=== PATIENT | male | born 1960 | race Caucasian/White ===

== ENCOUNTER 2022-04-21 20:06 | Emergency (ER) | payer MEDICAID, SELFPAY ==
--- NOTE | ~2022-04-21 | XR_ITS ---
EXAMINATION: XR CHEST CLINICAL INFORMATION: Shortness of breath. COMPARISON: Chest x-ray 03/02/2019 TECHNIQUE: Frontal portable view of the chest was obtained. 9:18 PM FINDINGS: Marked emphysematous hyperinflation of lungs. No acute airspace disease. No pleural effusion or pneumothorax. Heart size is normal. Cardiac mediastinal contours are normal. No pulmonary vascular congestion. XR/XR chest 1V IMPRESSION: Marked emphysematous hyperinflation of lungs. No acute abnormality of the chest.
[2022-04-21 20:16] VITALS: BP 141/72; BP 144/77; PULSE 80; PULSE 83; RESP 22; TEMP 36.6; O2SAT 100; O2SAT 98; BMI 24.0
[2022-04-21] MEDS: methylPREDNISolone Sod Succ 125 MG/2 ML VIAL IVPUSH (21:31)
[2022-04-21 21:33] VITALS: PULSE 72; RESP 18; O2SAT 97
[2022-04-21 21:36] LABS: MANUAL DIFF FLAG NO
[2022-04-21 21:39] LABS: Basophils Percent Auto 0.3 % (0-2); Eosinophils Percent Auto 0.5 % (0-4); Hematocrit 34.8 % (42.0-52.0); Hemoglobin 11.9 g/dl (14.0-18.0); Imm Gran Abs Auto 0.01 X10*3/uL (0.00-0.03); Imm Gran Pct Auto 0.2 % (0.0-0.4); Lymphocytes Absolute Auto 1.5 X10*3/uL (1.2-4.9); Lymphocytes Percent Auto 22.3 % (20-40); Mean Corpuscular HGB Conc 34.2 g/dl (31.0-36.0); Mean Corpuscular Hemoglobin 31.5 pg (27.0-33.0); Mean Corpuscular Volume 92.1 fL (80.0-98.0); Mean Platelet Volume 8.5 fL (9.4-12.4); Monocytes Absolute Auto 0.3 X10*3/uL (0.1-1.2); Monocytes Percent Auto 4.2 % (2-11); Neutrophils Absolute Auto 4.7 x10*3/uL (2.0-8.3); Neutrophils Percent Auto 72.5 % (45-73); Platelet Count 294 X10*3/uL (160-400); Red Blood Count 3.78 X10*6/uL (4.60-5.80); Red Cell Distribution Width 13.5 % (11.0-16.0); White Blood Count 6.5 X10*3/uL (4.8-10.8)
[2022-04-21 21:41] LABS: COVID-19 Test Negative (Negative); IDNOW Serial# 16C4AD1C; IDNOW Serial# BCCEAD1C; Influenza A Negative (Negative); Influenza B2 Negative (Negative)
[2022-04-21 21:45] LABS: VBG HCO3 25 mmol/L (22-26); VBG pCO2 38 mmHg; VBG pH 7.42 (7.32-7.43); VBG pO2 53 mmHg
[2022-04-21 21:47] LABS: Venous Blood Gas Refer to POC result
--- NOTE | 2022-04-21 21:53 | ED_ITS ---
HPI - SOB/Dyspnea General Chief Complaint: Dyspnea Stated Complaint: SOB x 3 days, cough per EMS Time Seen by Provider: 04/21/22 20:51 Source: patient Mode of arrival: EMS History of Present Illness HPI Narrative: 62-year-old male with history of everyday cigarette smoking, COPD and states that he has had decreased appetite, body aches, increased shortness of breath over the past 3 days without fever but has had chills. As per the EMS report patient was oxygenating 80s on room air and was given a DuoNeb and 100 mg of Solu-Medrol. Related Data Previous Rx's Medication Instructions Recorded albuterol sulfate 90 mcg/actuation 2 puff inhalation Q4-6H PRN 04/21/22 aerosol inhaler (Ventolin HFA) shortness of breath or wheezing #8.5 grams prednisone 50 mg tablet 50 mg PO DAILY 4 days #4 tabs 04/21/22 Allergies Allergy/AdvReac Type Severity Reaction Status Date / Time lisinopril [LISINOPRIL] Allergy Intermediate UNKNOWN Unverified 01/01/20 14:46 Penicillins [PENICILLINS] Allergy Unknown UNKNOWN Unverified 01/01/20 14:46 UNK ABX Allergy Unknown Uncoded 01/01/20 14:46 UNK BP MED Allergy Unknown Uncoded 01/01/20 14:46 Review of Systems Review of Systems: Pertinent positives and negatives as stated in HPI. PMFSH Past Medical History Source: nursing notes reviewed Social History Social History Alcohol intake: former Smoked in Last 30 Days: Yes Use of substances other than those prescribed or required for medical reasons: No Advance Directives: No Advance Directives Information Provided: Yes Physical Exam Vital Signs: Vital Signs: Last Vital Signs Temp 97.8 F 04/21/22 20:16 Pulse 85 04/21/22 22:00 Resp 20 04/21/22 22:00 BP 104/59 L 04/21/22 22:00 Pulse Ox 98 04/21/22 23:00 O2 Del Method 04/21/22 23:00 BMI result Body Mass Index 24.0 VITAL SIGNS: Reviewed. GENERAL: Well developed, well nourished, in no acute distress. HEAD: Normocephalic/atraumatic EYES: PERRLA, EOMI EARS: Ext canals without abnormality OROPHARYNX: no oral lesions noted, posterior pharynx clear LUNGS: Decreased breath sounds bilaterally with minor expiratory wheeze but no rhonchi or crackles. SpO2<100> CARDIOVASCULAR: Regular rate and rhythm without noted murmurs ABDOMEN: Soft, non-tender, non-distended with bowel sounds. MUSCULOSKELETAL: No tenderness, deformities, or effusions noted on gross inspection. EXTREMITIES: No cyanosis, clubbing or edema. SKIN: Inspection of the skin reveals no rashes NEUROLOGIC: Alert and oriented x 4. Strength and sensation to light touch were grossly intact x 4. Medications Administered Discontinued Medications Generic Name Dose Route Start Last Admin Trade Name Freq PRN Reason Stop Dose Admin Albuterol Sulfate 10 mg/ 0 mg 04/21/22 21:12 04/21/22 21:29 Ipratropium Arminto 0.5 mg INHALE 04/21/22 21:13 1 each ONCE ONE Administration Methylprednisolone Sodium Succinate 125 mg 04/21/22 21:12 04/21/22 21:31 Methylprednisolone Sod Succ 125 Mg/2 Ml Vial IVPUSH 04/21/22 21:13 125 mg ONCE ONE Administration Medical Decision Making Medical Decision Making [facility] Narrative: 62-year-old male with shortness of breath and a history of cigarette smoking. 2325: I have reviewed and interpreted patient's workup as being mild COPD e xacerbation with good oxygenation on room air and on ambulation test maintained 98% O2 sats without tachycardia or significant tachypnea. There is no overt evidence of bacterial infection, pneumonia, anemia is chronically stable and no evidence JUAN or electrolyte derangements, viral testing is negative. He is otherwise discharged home on a course steroids and instructions to follow-up with his primary care provider on Sunday morning. Differential Diagnosis Differential Diagnoses: The differential diagnosis associated with the prese ntation includes Viral illness, chronic lung disease Lab Data [facility] Lab Attestation statement: I reviewed the patient's lab results. Please see above for discussion 04/21/22 21:29 04/21/22 21:29 Labs: Lab Results 04/21/22 04/21/22 04/21/22 Range/Units 20:59 20:59 21:29 WBC 6.5 (4.8-10.8) X10*3/uL RBC 3.78 L (4.60-5.80) X10*6/uL Hgb 11.9 L (14.0-18.0) g/dl Hct 34.8 L (42.0-52.0) % MCV 92.1 (80.0-98.0) fL MCH 31.5 (27.0-33.0) pg MCHC 34.2 (31.0-36.0) g/dl RDW 13.5 (11.0-16.0) % Plt Count 294 (160-400) X10*3/uL MPV 8.5 L (9.4-12.4) fL Immature Gran % (Auto) 0.2 (0.0-0.4) % Neut % (Auto) 72.5 (45-73) % Lymph % (Auto) 22.3 (20-40) % [place] % (Auto) 4.2 (2-11) % Eos % (Auto) 0.5 (0-4) % Baso % (Auto) 0.3 (0-2) % Lymph # (Auto) 1.5 (1.2-4.9) X10*3/uL [place] # (Auto) 0.3 (0.1-1.2) X10*3/uL Eos # (Auto) 0.0 (0.0-0.4) X10*3/uL Baso # (Auto) 0.0 (0.0-0.2) X10*3/uL Abs Immat Gran (auto) 0.01 (0.00-0.03) X10*3/uL Absolute Neuts (auto) 4.7 (2.0-8.3) x10*3/uL Absolute Nucleated RBC 0.000 (0.0-0.012) X10*3/uL Nucleated RBC % (auto) 0.0 (0.0-0.2) /100WBC VBG pH (7.32-7.43) VBG pCO2 mmHg VBG pO2 mmHg VBG HCO3 (22-26) mmol/L VBG O2 Saturation % VBG Base Excess mmol/L Sodium (135-145) mmol/L Potassium (3.3-5.1) mmol/L Chloride (96-108) mmol/L Carbon Dioxide (22-29) mmol/L Anion Gap (12-20) BUN (9-16) mg/dL Creatinine (0.5-1.4) mg/dL Estim Creat Clear Calc Estimated GFR Random Glucose (60-115) mg/dL Calcium (8.4-10.2) mg/dL Total Bilirubin (0.0-1.0) mg/dL AST (5-37) U/L ALT (0-40) U/L Alkaline Phosphatase (39-117) U/L Total Protein (6.5-8.0) g/dL Albumin (3.5-5.0) g/dL COVID-19 (KISHA) Negative (Negative) COVID-19 Clin Com See Note Influenza Type A (MIKEY) Negative (Negative) Influenza Type B (MIKEY) Negative (Negative) Influenza A & B Note See Note 04/21/22 04/21/22 Range/Units 21:29 21:39 WBC (4.8-10.8) X10*3/uL RBC (4.60-5.80) X10*6/uL Hgb (14.0-18.0) g/dl Hct (42.0-52.0) % MCV (80.0-98.0) fL MCH (27.0-33.0) pg MCHC (31.0-36.0) g/dl RDW (11.0-16.0) % Plt Count (160-400) X10*3/uL MPV (9.4-12.4) fL Immature Gran % (Auto) (0.0-0.4) % Neut % (Auto) (45-73) % Lymph % (Auto) (20-40) % [place] % (Auto) (2-11) % Eos % (Auto) (0-4) % Baso % (Auto) (0-2) % Lymph # (Auto) (1.2-4.9) X10*3/uL [place] # (Auto) (0.1-1.2) X10*3/uL Eos # (Auto) (0.0-0.4) X10*3/uL Baso # (Auto) (0.0-0.2) X10*3/uL Abs Immat Gran (auto) (0.00-0.03) X10*3/uL Absolute Neuts (auto) (2.0-8.3) x10*3/uL Absolute Nucleated RBC (0.0-0.012) X10*3/uL Nucleated RBC % (auto) (0.0-0.2) /100WBC VBG pH 7.42 (7.32-7.43) VBG pCO2 38 mmHg VBG pO2 53 mmHg VBG HCO3 25 (22-26) mmol/L VBG O2 Saturation 83.0 % VBG Base Excess 1.0 mmol/L Sodium 137 (135-145) mmol/L Potassium 4.0 (3.3-5.1) mmol/L Chloride 105 (96-108) mmol/L Carbon Dioxide 21 L (22-29) mmol/L Anion Gap 15 (12-20) BUN 17 H (9-16) mg/dL Creatinine 1.08 (0.5-1.4) mg/dL Estim Creat Clear Calc 58.6 Estimated GFR > 60 Random Glucose 110 (60-115) mg/dL Calcium 8.7 (8.4-10.2) mg/dL Total Bilirubin 0.2 (0.0-1.0) mg/dL AST 15 (5-37) U/L ALT 10 (0-40) U/L Alkaline Phosphatase 59 (39-117) U/L Total Protein 6.4 L (6.5-8.0) g/dL Albumin 3.9 (3.5-5.0) g/dL COVID-19 (KISHA) (Negative) COVID-19 Clin Com Influenza Type A (MIKEY) (Negative) Influenza Type B (MIKEY) (Negative) Influenza A & B Note Independent Interpretation I performed an independent interpretation of an: EKG Interpretation: Normal sinus rhythm, HR-77, no STEMI, IL/QRS/QTC is within normal limits. Radiology Impression Radiologist Impression: My interpretation is in agreement with radiology's impression of the imaging study. External Record Review External record reviewed: Outpatient record and Prior outpatient labs Critical Care Time Critical Care Time Critical Care Time: Yes Total Critical Care Time: 30 Attestation: I personally attest to this time spent taking care of the patient. Discharge Plan Discharge Clinical Impression: COPD exacerbation Patient Disposition: Home, Self-Care Instructions: COPD (Chronic Obstructive Pulmonary Disease) (ED) Additional Instructions: 1. Resume all home medications as prescribed. 2. Complete the entire steroid course that you have been started on. 3. Follow-up with your primary care provider on Sourav morning. Return to the ER for any worsening symptoms. Prescriptions: New prednisone 50 mg tablet 50 mg PO DAILY 4 Days Qty: 4 0RF albuterol sulfate [Ventolin HFA] 90 mcg/actuation HFA aerosol inhaler 2 puff inhalation Q4-6H PRN (Reason: shortness of breath or wheezing) Qty: 8.5 0RF Referrals: Mike Kruse MD [Primary Care Provider] -
--- NOTE | 2022-04-21 21:57 | ECG_ITS ---
Test Reason : SOB Blood Pressure : / mmHG Vent. Rate : 077 BPM Atrial Rate : 077 BPM P-R Int : 164 ms QRS Dur : 078 ms QT Int : 376 ms P-R-T Axes : 082 072 055 degrees QTc Int : 425 ms Normal sinus rhythm Septal infarct (cited on or before 21-APR-2022) Abnormal ECG When compared with ECG of 20-FEB-2019 18:47, No significant changes seen Referred By: Noelle Martin Electronically Signed By:ROSIE LIVE
[2022-04-21 22:00] VITALS: BP 104/59; PULSE 85; RESP 20; O2SAT 97
[2022-04-21 22:00] LABS: Alanine Aminotransferase 10 U/L (0-40); Albumin Level 3.9 g/dL (3.5-5.0); Alkaline Phosphatase 59 U/L (39-117); Anion Gap 15 (12-20); Aspartate Amino Transferase 15 U/L (5-37); Bilirubin Total 0.2 mg/dL (0.0-1.0); Blood Urea Nitrogen 17 mg/dL (9-16); Calcium 8.7 mg/dL (8.4-10.2); Carbon Dioxide 21 mmol/L (22-29); Chloride 105 mmol/L (96-108); Creatinine Clr Calc Pharmacy 58.6; Estimated Glomerular Filt Rate > 60; Glucose Random 110 mg/dL (60-115); Sodium 137 mmol/L (135-145); Total Protein 6.4 g/dL (6.5-8.0)
--- NOTE | 2022-04-21 22:10 | PC.NURSE ---
PT A&Ox4, reports increase exerting SOB with cough. Denies any pain. O2 sat 95% on RA, RR 22. LS diminished. Blood work drawn and sent to lab.
[2022-04-21 23:00] VITALS: O2SAT 98
[2022-04-21 23:26] VITALS: BP 101/54; PULSE 92; RESP 16; TEMP 36.4; O2SAT 96
== END 2022-04-22 00:37 | disposition home or self-care (01) ==
PROVIDERS: Emergency Provider Student in an Organized Health Care Education/Training Program; PCP Internal Medicine
DX: J44.1 Chronic obstructive pulmonary disease with (acute) exacerbation (principal); R06.02 Shortness of breath; R05.9 Cough, unspecified; M79.10 Myalgia, unspecified site; Z20.822 Contact with and (suspected) exposure to COVID-19; Z79.899 Other long term (current) drug therapy
CPT/HCPCS: 36415; 71045; 80053; 82803; 85025; 87502; 87635; 93005; 94640; 96374; 99284; 99285; J2930

== ENCOUNTER 2022-09-19 20:27 | Observation (INO) | payer MEDICAID, SELFPAY ==
--- NOTE | ~2022-09-19 | XR_ITS ---
EXAMINATION: XR CHEST CLINICAL INFORMATION: Short of breath COMPARISON: 04/21/2022 TECHNIQUE: Frontal view of the chest was obtained. FINDINGS: Hyperexpanded lungs. Oligemia of the upper lungs consistent with emphysema. No consolidation. No pleural effusion or pneumothorax. The cardiomediastinal silhouette is within normal limits. XR/XR chest 1V IMPRESSION: No acute pulmonary disease. Emphysema.
[2022-09-19 20:31] VITALS: BP 160/80; BP 188/82; PULSE 107; PULSE 96; RESP 28; TEMP 36.4; O2SAT 100; O2SAT 99; BMI 24.0
--- NOTE | 2022-09-19 20:33 | ECG_ITS ---
Test Reason : SOB Blood Pressure : / mmHG Vent. Rate : 103 BPM Atrial Rate : 103 BPM P-R Int : 116 ms QRS Dur : 074 ms QT Int : 320 ms P-R-T Axes : 074 058 066 degrees QTc Int : 419 ms Sinus tachycardia Septal infarct (cited on or before 21-APR-2022) Abnormal ECG When compared with ECG of 21-APR-2022 22:18, No significant change was found Referred By: Generic ED Physician Electronically Signed By:David Hurst
[2022-09-19 20:36] VITALS: RESP 26
--- NOTE | 2022-09-19 20:46 | MHC.EDTECH ---
This Tech assumed care of this PT upon arrival. Pt changed over to hospital gown and placed on media monitor. EKG completed and handed to provider. Bloodwork sent to Lab for processing
[2022-09-19 20:48] VITALS: BP 165/76; PULSE 120; RESP 26; TEMP 36.6; O2SAT 91
[2022-09-19 20:48] LABS: MANUAL DIFF FLAG NO
[2022-09-19 20:49] LABS: Basophils Percent Auto 0.1 % (0-2); Hematocrit 38.5 % (42.0-52.0); Hemoglobin 13.4 g/dl (14.0-18.0); Imm Gran Abs Auto 0.18 X10*3/uL (0.00-0.03); Imm Gran Pct Auto 0.8 % (0.0-0.4); Lymphocytes Absolute Auto 1.2 X10*3/uL (1.2-4.9); Lymphocytes Percent Auto 5.7 % (20-40); Mean Corpuscular HGB Conc 34.8 g/dl (31.0-36.0); Mean Corpuscular Hemoglobin 31.8 pg (27.0-33.0); Mean Corpuscular Volume 91.4 fL (80.0-98.0); Mean Platelet Volume 8.4 fL (9.4-12.4); Monocytes Absolute Auto 1.2 X10*3/uL (0.1-1.2); Monocytes Percent Auto 5.4 % (2-11); Neutrophils Absolute Auto 19.2 x10*3/uL (2.0-8.3); Platelet Count 255 X10*3/uL (160-400); Red Blood Count 4.21 X10*6/uL (4.60-5.80); Red Cell Distribution Width 13.9 % (11.0-16.0); White Blood Count 21.8 X10*3/uL (4.8-10.8)
--- OUTSIDE RECORDS SUMMARY | 2022-09-19 20:52 | XMS_ITS | Continuity of Care Document ---
Author Name Unknown Organization [facility] Address [address] [place] [address]- Care Team Providers Care Night Cleaner Name Role Phone Mike Tristan MD Primary Care Physician Encounter [facility] Date(s): 01/03/21 - 02/02/21 [facility] [address] [place] [address] [address] [place], [place] [id number] Attending Physician: Admtr, Eliza Admitting Physician: Admtr, Eliza Referring Physician: Admtr, Ar8 Allergies, Adverse Reactions, Alerts Substance Reaction Severity Status lisinopril Atenolol Trisha norvegensis Active cloNIDine Active Immunizations Given and Recorded Vaccine Date Status Refusal Reason SARS-CoV-2 (COVID-19) Ad26 vaccine 09/14/20 Given influenza virus vaccine, inactivated 01/08/20 Give n influenza virus vaccine, inactivated 1, 2 11/21/16 Recorded influenza virus vaccine, inactivated 11/20/16 Mohan rded influenza virus vaccine, inactivated 3 01/26/16 Re corded influenza virus vaccine, inactivated 02/04/15 Mohan rded influenza virus vaccine, inactivated 12/09/13 Mohan rded influenza virus vaccine, inactivated 11/28/10 Mohan rded tetanus-diphtheria toxoids (Td) 02/10/19 Given tetanus-diphtheria toxoids (Td) 02/10/19 Given zoster vaccine, inactivated 11/16/18 Recorded pneumococcal 23-valent vaccine 01/20/16 Given pneumococcal 23-valent vaccine 12/29/08 Recorded pneumococcal 13-valent vaccine 05/11/14 Given tetanus/diphtheria/pertussis, acel(Tdap) 04/01/09 Recorded 1Location History: [facility] 2Result Comment: [11/22/2016] [facility] 3Result Comment: [03/20/2016] [facility] Medications amLODIPine 5 mg oral tablet 5 mg, 1, tablet, By Mouth, Daily, # 90 tablet, Refills 0, Tot. Refills 0, Soft Stop, 01/10/21 16:35:00 EDT, Route to Pharmacy Electronically, [facility], 174, cm, 12/30/20 14:45:00 EDT, Height, 57, kg, 03/19/19 14:07:00 EST, Dry Weight Start Date: 01/10/21 Status: Ordered Aspirin Low Dose 81 mg oral delayed release tablet 1 tablet, By Mouth, Daily, # 30 tablet, 2 Refills, [facility], 174, cm, 01/14/21 15:08:00EDT, Height, 57, kg, 03/19/19 14:07:00 EST, Dry Weight Start Date: 01/25/21 Status: Ordered Combivent Respimat 20 mcg-100 mcg/inh inhalation aerosol 1 puffs, Inhalation, 4 times a day, PRN NEEDED FOR WHEEZING OR SHORTNESS OF BREATH, # 4 Gm, 11 Refills, Maintenance, 05/07/20 10:33:00 EST, [facility], 30, 1 puffs Inhalation 4 times a day,PRN: NEEDED FOR WHEEZING OR SHORTNESS OF BREATH... Start Date: 05/07/20 Status: Ordered docusate sodium 100 mg oral capsule 1 capsule = 100 mg, By Mouth, 2 times a day, PRN as needed for constipation, # 100 capsule, 2 Refills, Maintenance, 08/17/20 14:09:00 EDT, Capsule, [facility], Partial fill upon patient request if the prescription is for a schedule II opioid... Start Date: 08/17/20 Status: Ordered ENSURE CHOCOLATE ENSURE CHOCOLATE, See Instructions, # 60 each, Refills 11, Tot. Refills 11, Maintenance, drink 2 ensure daily dx code: r63.0 R63.4 , 07/12/20 15:07:00 EDT, Compound, 174, cm, 07/12/20 14:32:00 EDT, Height, 57, kg, 03/19/19 14:07:00 E... Start Date: 07/12/20 Status: Ordered Fish Oil By Mouth, 0 Refills, Maintenance, 08/17/20 13:53:00 EDT, Partial fill upon patient request if the prescription is for a schedule II opioid drug. Start Date: 08/17/20 Status: Ordered fluticasone 50 mcg/inh nasal spray See Instructions, INSTILL 1 SPRAY INTO EACH NOSTRIL TWICE DAILY, # 16 Gm, 2 Refills, 08/24/20 15:55:00 EDT, [facility], 30, INSTILL 1 SPRAY INTO EACH NOSTRIL TWICE DAILY, 174, cm, 08/17/20 13:45:00 EDT, Height, 57, kg, 03/19/19 14:07:00 EST,... Start Date: 08/24/20 Status: Ordered hydrocortisone 1% topical cream 1 application, Topically, 2 times a day, apply in a thin film to the affected skin and rub in gently and completely, # 30 Gm, 0 Refills, Maintenance, 10/15/17 14:37:33 EDT, Cream, 1 application Topically 2 times a day,Instr:apply in a thin film to the... Start Date: 10/15/17 Status: Ordered loratadine 10 mg oral capsule 1 capsule = 10 mg, By Mouth, Daily, # 40 capsule, 1 Refills, Maintenance, 11/30/20 11:11:00 EDT, Capsule, [facility], Partial fill upon patient request if the prescription is for a scheduleII opioid drug., 174, cm, 11/30/20 10:34:00 EDT, He... Start Date: 11/30/20 Status: Ordered losartan 100 mg oral tablet 1 tablet, By Mouth, Daily, # 30 tablet, 11 Refills, Maintenance, 07/12/20 14:44:00 [facility], cm, 07/12/20 14:32:00 EDT, Height, 57, kg, 03/19/19 14:07:00 EST, Dry Weight Start Date: 07/12/20 Status: Ordered metoprolol 50 mg oral tablet, extended release 50 mg, 1, tablet, By Mouth, Daily, do not crush or chew, # 30 tablet, Refills 11, Tot. Refills 11, Maintenance, 07/12/20 14:44:00 EDT, Route to Pharmacy Electronically, [facility], 174, cm,07/12/20 14:32:00 EDT, Height, 57, kg, 03/19/19 14:... Start Date: 07/12/20 Status: Ordered montelukast 10 mg oral tablet 1, tablet, By Mouth, Daily at bedtime, # 30 tablet, Refills 4, Tot. Refills 0, Maintenance, 10/20/20 11:07:00 EDT, Route to Pharmacy Electronically, [facility], 174, cm, 09/14/20 14:37:00 EDT, Height, 57, kg, 03/19/19 14:07:00 EST, Dry Weight Start Date: 10/20/20 Status: Ordered Nasacort Allergy 24HR 55 mcg/inh nasal spray 2 sprays, Nares, Both, Daily, # 3 each, 0 Refills, Maintenance, 01/08/20 14:50:00 EDT, [facility], 2 sprays Nares, Both Daily, 174, cm, 01/08/20 14:29:00 EDT, Height, 57, kg, 03/19/19 14:07:00 EST, Dry Weight Start Date: 01/08/20 Status: Ordered nicotine 4 mg oral transmucosal lozenge 1 lozenge = 4 mg, By Mouth, Every hour, # 189 lozenge, 11 Refills, Maintenance, 07/12/20 14:49:00 EDT, [facility], 1 lozenge By Mouth Every hour, 174, cm, 07/12/20 14:32:00 EDT, Height, 57,kg, 03/19/19 14:07:00 EST, Dry Weight Start Date: 07/12/20 Status: Ordered omeprazole 20 mg oral enteric coated capsule 1 capsule, By Mouth, Daily, # 14 capsule, 0 Refills, Maintenance, 07/05/20 8:06:00 EDT, [facility], 174, cm, 06/22/20 14:37:00 EST, Height, 57, kg, 03/19/19 14:07:00 EST, Dry Weight Start Date: 07/05/20 Stop Date: 07/19/20 Status: Ordered pravastatin 40 mg oral tablet 1 tablet = 40 mg, By Mouth, Daily, # 90 tablet, 1 Refills, Maintenance, 08/24/20 15:56:00 EDT, Tablet, [facility], 174, cm, 08/17/20 13:45:00 EDT, Height, 57, kg, 03/19/19 14:07:00 EST, DryWeight Start Date: 08/24/20 Status: Ordered Remeron 15 mg oral tablet 1 tablet = 15 mg, By Mouth, Daily at bedtime, REPLACES ZOLOFT, # 30 tablet, 1 Refills, Maintenance,06/22/20 15:13:00 EST, Tablet, [facility], Partial fill upon patient request if the prescription is for a schedule II opioid drug., 174, cm,... Start Date: 06/22/20 Status: Ordered Spiriva Respimat 1.25 mcg/inh inhalation aerosol 2 puffs, Inhalation, Daily, # 4 Gm, 11 Refills, Maintenance, 05/25/20 13:51:00 EST, Aerosol, [facility], Partial fill upon patient request if the prescription is for a schedule II opioid drug., 174, cm, 05/07/20 10:13:00 EST, Height, 57, kg,... Start Date: 05/25/20 Status: Ordered Symbicort 160mcg/4.5mcg Inhaler 2, puffs, Inhalation, 2 times a day, # 1 each, Refills 11, Tot. Refills 11, Maintenance, 05/25/20 13:51:00 EST, Aerosol, Route to Pharmacy Electronically, [id number], [facility], 174,cm, 05/07/20 10:13:00 EST, Height, 57, kg, 03/19/19... Start Date: 05/25/20 Status: Ordered tamsulosin 0.4 mg oral capsule 1, capsule, By Mouth, Daily, # 30 capsule, Refills 4, Tot. Refills 0, Maintenance, 10/20/20 11:06:00 EDT, Route to Pharmacy Electronically, [facility], 174, cm, 09/14/20 14:37:00 EDT, Height, 57, kg, 03/19/19 14:07:00 EST, Dry Weight Start Date: 10/20/20 Status: Ordered traZODone 50 mg oral tablet 100 mg, 2, tablet, By Mouth, Daily at bedtime, # 60 tablet, Refills 11, Tot. Refills 11, Maintenance, 07/12/20 14:43:00 EDT, Route to Pharmacy Electronically, [facility], 174, cm, 07/12/20 14:32:00 EDT, Height, 57, kg, 03/19/19 14:07:00 EST,... Start Date: 07/12/20 Status: Ordered Tylenol Extra Strength 500 mg oral tablet See Instructions, PRN for pain, 1 or 2 tablet By Mouth 3 times a day PER DR TRISTAN, # 100 tablet, 11 Refills, Maintenance, 06/08/20 10:22:00 EST, Tablet, [facility], 174, cm, 06/08/20 9:48:00 EST, Height, 57, kg, 03/19/19 14:07:00 EST, Dry Weight Start Date: 06/08/20 Status: Ordered Problem List Condition Effective Dates Status Health Status Inform ant Allergic rhinitis due to pollen(Confirmed) Active Anemia(Confirmed) Active Anxiety(Confirmed) Active Arthralgia of pelvis or thigh(Confirmed) Active Benign prostatic hyperplasia(Confirmed) Active Cerebrovascular disease(Confirmed) Active Constipation(Confirmed) Active Positive fecal immunochemica l test(Confirmed) Active Gastroesophageal reflux(Confirmed) Active Hypercholesterolemia(Confirmed) Active HTN (hypertension)(Confirmed) Active ED (erectile dysfunction)(Confirmed) Active Insomnia(Confirmed) Active Internal hemorrhoids(Confirmed) 1 Active Livedo reticularis(Confirmed) Active Low backache(Confirmed) Active COPD, moderate(Confirmed) 2 Active Pulmonary nodules(Confirmed) 3 Active Frequent urination at night(Confirmed) Active PVD (peripheral vascular disease)(Confirmed) Active Polyp of colon(Confirmed) 4 Active Emphysema of lung(Confirmed) 5 Active Chronic pain in shoulder(Confirmed) Active Tachycardia(Confirmed) Active Tobacco abuse(Confirmed) Active Tubular adenoma of colon(Confirmed) 09/03/16 Active Vertigo(Confirmed) Active 1colo 2016 2Dr. Green 3IMPRESSION: 1. Severe emphysema. No evidence of chronic interstitial lung disease. 2. Several pulmonary nodules bilaterally measuring up to 6 mm. In this patient with high risk for malignancy due to smoking, follow-up CT at 3 months, then CT at 18-24 months and if unchanged no further followup per Guidelines for Management of Incidental Pulmonary Nodules Detected on CT Images: From the Fleischner Society 2017. 4colo 2017 5IMPRESSION: 1. Severe emphysema. No evidence of chronic interstitial lung disease. 2. Several pulmonary nodules bilaterally measuring up to 6 mm. In this patient with high risk for malignancy due to smoking, follow-up CT at 3 months, then CT at 18-24 months and if unchanged no further followup per Guidelines for Management of Incidental Pulmonary Nodules Detected on CT Images: From the Fleischner Society 2017. Social History Social History Type Response Smoking Status 5-9 cigarettes (betw een 1/4 to 1/2 pack)/day in last 30 days entered on: 05/26/19 Sex
--- OUTSIDE RECORDS SUMMARY | 2022-09-19 20:52 | XMS_ITS | Continuity of Care Document ---
Author Name Unknown Organization [facility] Trevor lt Address [address] [place] [address]- Care Team Providers Care Jtac Name Role Phone Mike Tristan MD Primary Care Physician [phone] Encounter [facility] Date(s): 10/07/20 - 11/06/20 [facility] Adult [address] [place] [address]- Allergies, Adverse Reactions, Alerts Substance Reaction Severity [...] By Mouth, Daily, # 90 tablet, Refills 1, Tot. Refills 1, Soft Stop, 05/05/20 13:45:00 EST, Route to Pharmacy Electronically, [facility], 174, cm, 03/01/20 11:26:00 EST, Height, 57, kg, 03/19/19 14:07:00 EST, Dry Weight Start Date: 05/05/20 Status: Ordered aspirin 81 mg oral tablet 1 tablet = 81 mg, By Mouth, Daily, PER DR TRISTAN, # 30 tablet, 5 Refills, Maintenance, 10/13/19 13:42:00 EDT, Tablet, [facility], 174, cm, 10/01/19 13:58:00 EDT, Height, 57, kg, 03/19/19 14:07:00 EST, Dry Weight Start Date: 10/13/19 Status: Ordered Combivent Respimat 20 mcg-100 mcg/inh inhalation aerosol 1 puffs, Inhalation, 4 times a day, PRN NEEDED FOR WHEEZING OR SHORTNESS OF BREATH, # 4 Gm, 11 Refills, Maintenance, 05/07/20 10:33:00 EST, [facility], 30, 1 puffs Inhalation 4 times a day,PRN: NEEDED FOR WHEEZING OR SHORTNESS OF BREATH... Start Date: 05/07/20 Status: Ordered docusate sodium 100 mg oral capsule 1 capsule = 100 mg, By Mouth, 2 times a day, PRN as needed for constipation, # 100 capsule, 2 Refills, Maintenance, 08/17/20 14:09:00 EDT, Capsule, [facility], Partial fill upon patient request [...] 16 Gm, 2 Refills, 08/24/20 15:55:00 EDT, [facility], 30, INSTILL 1 SPRAY INTO EACH [...] Daily, # 40 capsule, 1 Refills, Maintenance, 08/17/20 14:11:00 EDT, Capsule, [facility], Partial fill upon patient request if the prescription is for a scheduleII opioid drug., 174, cm, 08/17/20 13:45:00 EDT, He... Start Date: 08/17/20 Status: Ordered losartan 100 mg oral tablet 1 tablet, By Mouth, Daily, # 30 tablet, 11 Refills, Maintenance, 07/12/20 14:44:00 EDT, [facility], 174, cm, 07/12/20 14:32:00 EDT, Height, 57, kg, 03/19/19 14:07:00 EST, Dry Weight Start Date: 07/12/20 Status: Ordered metoprolol 50 mg oral tablet, extended release 50 mg, 1, tablet, By Mouth, Daily, do not crush or chew, # 30 tablet, Refills 11, Tot. Refills 11, Maintenance, 07/12/20 14:44:00 EDT, Route to Pharmacy Electronically, [facility], 174, cm,07/12/20 14:32:00 EDT, Height, 57, kg, 03/19/19 14:... Start Date: 07/12/20 Status: Ordered montelukast 10 mg oral tablet 1, tablet, By Mouth, Daily at bedtime, # 30 tablet, Refills 4, Tot. Refills 0, Maintenance, 10/20/20 11:07:00 EDT, Route to Pharmacy Electronically, [facility], 174, cm, 09/14/20 14:37:00 EDT, Height, 57, kg, 03/19/19 14:07:00 EST, Dry Weight Start Date: 10/20/20 Status: Ordered Nasacort Allergy 24HR 55 mcg/inh nasal spray 2 sprays, Nares, Both, Daily, # 3 each, 0 Refills, Maintenance, 01/08/20 14:50:00 EDT, [facility], 2 sprays Nares, Both Daily, 174, cm, 01/08/20 14:29:00 EDT, Height, 57, kg, 03/19/19 14:07:00 EST, Dry Weight Start Date: 01/08/20 Status: Ordered nicotine 4 mg oral transmucosal lozenge 1 lozenge = 4 mg, By Mouth, Every hour, # 189 lozenge, 11 Refills, Maintenance, 07/12/20 14:49:00 EDT, [facility], 1 lozenge By Mouth Every hour, 174, cm, 07/12/20 14:32:00 EDT, Height, 57,kg, 03/19/19 14:07:00 EST, Dry Weight Start Date: 07/12/20 Status: Ordered omeprazole 20 mg oral enteric coated capsule 1 capsule, By Mouth, Daily, # 14 capsule, 0 Refills, Maintenance, 07/05/20 8:06:00 EDT, [facility], 174, cm, 06/22/20 14:37:00 EST, Height, 57, kg, 03/19/19 14:07:00 EST, Dry Weight Start Date: 07/05/20 Stop Date: 07/19/20 Status: Ordered pravastatin 40 mg oral tablet 1 tablet = 40 mg, By Mouth, Daily, # 90 tablet, 1 Refills, Maintenance, 08/24/20 15:56:00 EDT, Tablet, [facility], 174, cm, 08/17/20 13:45:00 EDT, Height, 57, kg, 03/19/19 14:07:00 EST, DryWeight Start Date: 08/24/20 Status: Ordered Remeron 15 mg oral tablet 1 tablet = 15 mg, By Mouth, Daily at bedtime, REPLACES ZOLOFT, # 30 tablet, 1 Refills, Maintenance,06/22/20 15:13:00 EST, Tablet, [facility], Partial fill upon patient request if the prescription is for a schedule II opioid drug., 174, cm,... Start Date: 06/22/20 Status: Ordered Spiriva Respimat 1.25 mcg/inh inhalation aerosol 2 puffs, Inhalation, Daily, # 4 Gm, 11 Refills, Maintenance, 05/25/20 13:51:00 EST, Aerosol, [facility], Partial fill upon patient request if the prescription is for a schedule II opioid drug., 174, cm, 05/07/20 10:13:00 EST, Height, 57, kg,... Start Date: 05/25/20 Status: Ordered Symbicort 160mcg/4.5mcg Inhaler 2, puffs, Inhalation, 2 times a day, # 1 each, Refills 11, Tot. Refills 11, Maintenance, 05/25/20 13:51:00 EST, Aerosol, Route to Pharmacy Electronically, [id number], [facility], 174,cm, 05/07/20 10:13:00 EST, Height, 57, kg, 03/19/19... Start Date: 05/25/20 Status: Ordered tamsulosin 0.4 mg oral capsule 1, capsule, By Mouth, Daily, # 30 capsule, Refills 4, Tot. Refills 0, Maintenance, 10/20/20 11:06:00 EDT, Route to Pharmacy Electronically, [facility], 174, cm, 09/14/20 14:37:00 EDT, Height, 57, kg, 03/19/19 14:07:00 EST, Dry Weight Start Date: 10/20/20 Status: Ordered traZODone 50 mg oral tablet 100 mg, 2, tablet, By Mouth, Daily at bedtime, # 60 tablet, Refills 11, Tot. Refills 11, Maintenance, 07/12/20 14:43:00 EDT, Route to Pharmacy Electronically, [facility], 174, cm, 07/12/20 14:32:00 EDT, Height, 57, kg, 03/19/19 14:07:00 EST,... Start Date: 07/12/20 Status: Ordered Tylenol Extra Strength 500 mg oral tablet See Instructions, PRN for pain, 1 or 2 tablet By Mouth 3 times a day PER DR TRISTAN, # 100 tablet, 11 Refills, Maintenance, 06/08/20 10:22:00 EST, Tablet, [facility], 174, cm, 06/08/20 9:48:00 EST, Height, 57, kg, 03/19/19 14:07:00 EST, Dry Weight Start Date: 06/08/20 Status: Ordered ZyrTEC 10 mg oral tablet 1 tablet = 10 mg, By Mouth, Daily, # 30 tablet, 5 Refills, Maintenance, 03/08/20 8:02:00 EST, Tablet, [facility], 174, cm, 03/01/20 11:26:00 EST, Height, 57, kg, 03/19/19 14:07:00 EST, Dry Weight Start Date: 03/08/20 Status: Ordered Problem List Condition Effective Dates [...] of colon(Confirmed) 09/03/16 Active Vertigo(Confirmed) Active 1colo 2017 2Dr. Green 3IMPRESSION: 1. Severe emphysema. No [...]
--- OUTSIDE RECORDS SUMMARY | 2022-09-19 20:52 | XMS_ITS | Continuity of Care Document ---
Author Name Unknown Organization [facility] Trevor lt Address [address] [place] [address]- Care Team Providers Care Ebd Teacher Name Role Phone Aixa BERNABE, Mike Bennett Primary Care Physician Encounter [facility] [place] Date(s): 10/22/20 - 10/29/20 [facility] Adult [address] [place] [address]- Encounter Diagnosis Anxiety(Discharge Diagnosis) - 10/22/20 Attending Physician: Mirtha HOOD, Rachell Bennett Referring Physician: Devyn Tristan MD Allergies, Adverse Reactions, Alerts Substance Reaction Severity [...] 05/05/20 13:45:00 EST, Route to Pharmacy Electronically, [facility], 174, cm, 03/01/20 11:26:00 EST, Height, 57, kg, 03/19/19 14:07:00 EST, Dry Weight Start Date: 05/05/20 Status: Ordered aspirin 81 mg oral tablet 1 tablet = 81 mg, By Mouth, Daily, PER DR TRISTAN, # 30 tablet, 5 Refills, Maintenance, 10/13/19 13:42:00 EDT, Tablet, [facility], 174, cm, 10/01/19 13:58:00 EDT, Height, 57, kg, 03/19/19 14:07:00 EST, Dry Weight Start Date: 10/13/19 Status: Ordered Combivent Respimat 20 mcg-100 mcg/inh inhalation aerosol 1 puffs, Inhalation, 4 times a day, PRN NEEDED FOR WHEEZING OR SHORTNESS OF BREATH, # 4 Gm, 11 Refills, Maintenance, 05/07/20 10:33:00 EST, [facility], 30, 1 puffs Inhalation 4 times a day,PRN: NEEDED FOR WHEEZING OR SHORTNESS OF BREATH... Start Date: 05/07/20 Status: Ordered docusate sodium 100 mg oral capsule 1 capsule = 100 mg, By Mouth, 2 times a day, PRN as needed for constipation, # 100 capsule, 2 Refills, Maintenance, 08/17/20 14:09:00 EDT, Capsule, [facility], Partial fill upon patient request [...] 16 Gm, 2 Refills, 08/24/20 15:55:00 EDT, [facility], 30, INSTILL 1 SPRAY INTO EACH [...] 1 Refills, Maintenance, 08/17/20 14:11:00 EDT, Capsule, [facility], Partial fill upon patient request if the prescription is for a scheduleII opioid drug., 174, cm, 08/17/20 13:45:00 EDT, He... Start Date: 08/17/20 Status: Ordered losartan 100 mg oral tablet 1 tablet, By Mouth, Daily, # 30 tablet, 11 Refills, Maintenance, 07/12/20 14:44:00 [facility], [facility], [facility], 07/12/20 14:32:00 EDT, Height, 57, kg, 03/19/19 14:07:00 EST, Dry Weight Start Date: 07/12/20 Status: Ordered metoprolol 50 mg oral tablet, extended release 50 mg, 1, tablet, By Mouth, Daily, do not crush or chew, # 30 tablet, Refills 11, Tot. Refills 11, Maintenance, 07/12/20 14:44:00 EDT, Route to Pharmacy Electronically, [facility], 174, cm,07/12/20 14:32:00 EDT, Height, 57, kg, 03/19/19 14:... Start Date: 07/12/20 Status: Ordered montelukast 10 mg oral tablet 1, tablet, By Mouth, Daily at bedtime, # 30 tablet, Refills 4, Tot. Refills 0, Maintenance, 10/20/20 11:07:00 EDT, Route to Pharmacy Electronically, [facility], 174, cm, 09/14/20 14:37:00 EDT, Height, 57, kg, 03/19/19 14:07:00 EST, Dry Weight Start Date: 10/20/20 Status: Ordered Nasacort Allergy 24HR 55 mcg/inh nasal spray 2 sprays, Nares, Both, Daily, # 3 each, 0 Refills, Maintenance, 01/08/20 14:50:00 EDT, [facility], 2 sprays Nares, Both Daily, 174, cm, 01/08/20 14:29:00 EDT, Height, 57, kg, 03/19/19 14:07:00 EST, Dry Weight Start Date: 01/08/20 Status: Ordered nicotine 4 mg oral transmucosal lozenge 1 lozenge = 4 mg, By Mouth, Every hour, # 189 lozenge, 11 Refills, Maintenance, 07/12/20 14:49:00 EDT, [facility], 1 lozenge By Mouth Every hour, 174, cm, 07/12/20 14:32:00 EDT, Height, 57,kg, 03/19/19 14:07:00 EST, Dry Weight Start Date: 07/12/20 Status: Ordered omeprazole 20 mg oral enteric coated capsule 1 capsule, By Mouth, Daily, # 14 capsule, 0 Refills, Maintenance, 07/05/20 8:06:00 EDT, [facility], 174, cm, 06/22/20 14:37:00 EST, Height, 57, kg, 03/19/19 14:07:00 EST, Dry Weight Start Date: 07/05/20 Stop Date: 07/19/20 Status: Ordered pravastatin 40 mg oral tablet 1 tablet = 40 mg, By Mouth, Daily, # 90 tablet, 1 Refills, Maintenance, 08/24/20 15:56:00 EDT, Tablet, [facility], 174, cm, 08/17/20 13:45:00 EDT, Height, 57, kg, 03/19/19 14:07:00 EST, DryWeight Start Date: 08/24/20 Status: Ordered Remeron 15 mg oral tablet 1 tablet = 15 mg, By Mouth, Daily at bedtime, REPLACES ZOLOFT, # 30 tablet, 1 Refills, Maintenance,06/22/20 15:13:00 EST, Tablet, [facility], Partial fill upon patient request if the prescription is for a schedule II opioid drug., 174, cm,... Start Date: 06/22/20 Status: Ordered Spiriva Respimat 1.25 mcg/inh inhalation aerosol 2 puffs, Inhalation, Daily, # 4 Gm, 11 Refills, Maintenance, 05/25/20 13:51:00 EST, Aerosol, [facility], Partial fill upon patient request if the prescription is for a schedule II opioid drug., 174, cm, 05/07/20 10:13:00 EST, Height, 57, kg,... Start Date: 05/25/20 Status: Ordered Symbicort 160mcg/4.5mcg Inhaler 2, puffs, Inhalation, 2 times a day, # 1 each, Refills 11, Tot. Refills 11, Maintenance, 05/25/20 13:51:00 EST, Aerosol, Route to Pharmacy Electronically, [id number], [facility], 174,cm, 05/07/20 10:13:00 EST, Height, 57, kg, 03/19/19... Start Date: 05/25/20 Status: Ordered tamsulosin 0.4 mg oral capsule 1, capsule, By Mouth, Daily, # 30 capsule, Refills 4, Tot. Refills 0, Maintenance, 10/20/20 11:06:00 EDT, Route to Pharmacy Electronically, [facility], 174, cm, 09/14/20 14:37:00 EDT, Height, 57, kg, 03/19/19 14:07:00 EST, Dry Weight Start Date: 10/20/20 Status: Ordered traZODone 50 mg oral tablet 100 mg, 2, tablet, By Mouth, Daily at bedtime, # 60 tablet, Refills 11, Tot. Refills 11, Maintenance, 07/12/20 14:43:00 EDT, Route to Pharmacy Electronically, [facility], 174, cm, 07/12/20 14:32:00 EDT, Height, 57, kg, 03/19/19 14:07:00 EST,... Start Date: 07/12/20 Status: Ordered Tylenol Extra Strength 500 mg oral tablet See Instructions, PRN for pain, 1 or 2 tablet By Mouth 3 times a day PER DR TRISTAN, # 100 tablet, 11 Refills, Maintenance, 06/08/20 10:22:00 EST, Tablet, [facility], 174, cm, 06/08/20 9:48:00 EST, Height, 57, kg, 03/19/19 14:07:00 EST, Dry Weight Start Date: 06/08/20 Status: Ordered ZyrTEC 10 mg oral tablet 1 tablet = 10 mg, By Mouth, Daily, # 30 tablet, 5 Refills, Maintenance, 03/08/20 8:02:00 EST, Tablet, [facility], 174, cm, 03/01/20 11:26:00 EST, [...] adenoma of colon(Confirmed) 09/03/16 Active Vertigo(Confirmed) Active 1c2016 2Dr. Green 3IMPRESSION: 1. Severe emphysema. No [...] Images: From the Fleischner Society 2017. 4colo 2016 5IMPRESSION: 1. Severe emphysema. No evidence of [...] CT Images: From the Fleischner Society 2017. Diagnosis Diagnosis Type Effective Dates Health Status Clini gabriel Service Informant Anxiety Discharge Diagnosis 10/22/20 Vital Signs Most recent to oldest [Reference Range]: 1 Height 174 cm (10/22/20 3:16 PM) Weight 64.0 kg (10/22/20 3:16 PM) Oxygen Saturation [94-100 %] 98 % (10/22/20 3:16 PM) Pulse Rate [55-90 bpm] 88 bpm (10/22/20 3:16 PM) Body Mass Index [18.5-24.99] 21.14 (10/22/20 3:16 PM) Blood Pressure [90-138/55-84 mm Hg] 134/ 76mm Hg (10/22/20 3:16 PM) Respiratory Rate [16-30 br/min] 16 br/mi n (10/22/20 3:16 PM) Temperature [96.8-100.4 DegF] 98.7 DegF (10/22/20 3:16 PM) Mode of Delivery (Oxygen) Room air (10/22/20 3:16 PM) Blood pressure sites Arm, left (10/22/20 3:16 PM) Temperature Route Oral (10/22/20 3:16 PM) Weight Obtained Via Standing scale (10/22/20 3:16 PM) Social History Social History Type Response Smoking Status 5-9 cigarettes (betw een 1/4 to 1/2 pack)/day in last 30 days entered on: 05/26/19 Sex
--- OUTSIDE RECORDS SUMMARY | 2022-09-19 20:52 | XMS_ITS | Continuity of Care Document ---
Author Name Unknown Organization [facility] Trevor lt Address [address] [place] [address]- Care Team Providers Care Seo Marketing Specialist Name Role Phone Aixa BERNABE, Mike Bennett Primary Care Physician Encounter [facility] [place] Date(s): 09/24/19 - 10/01/19 [facility] Adult [address] [place] [address]- [facility] Encounter Diagnosis Allergic rhinitis due to pollen(Discharge Diagnosis) - 09/24/19 Acute sinusitis(Discharge Diagnosis) - 09/24/19 Attending Physician: Crispin ASSISTANT CLINICAL DIRECTOR, Nasreen Shaffer Allergies, Adverse Reactions, Alerts Substance Reaction Severity Status lisinopril Atenolol Trisha norvegensis Active cloNIDine Active Immunizations Given and Recorded Vaccine Date Status Refusal Reason tetanus-diphtheria toxoids (Td) 02/10/19 Given tetanus-diphtheria toxoids (Td) 02/10/19 Given zoster vaccine, inactivated 11/16/18 Recorded influenza virus vaccine, inactivated 1, 2 11/21/16 Recorded influenza virus vaccine, inactivated 11/20/16 Mohan rded influenza virus vaccine, inactivated 3 01/26/16 Re corded influenza virus vaccine, inactivated 02/04/15 Mohan rded influenza virus vaccine, inactivated 12/09/13 Mohan rded influenza virus vaccine, inactivated 11/28/10 Mohan rded pneumococcal 23-valent vaccine 01/20/16 Given pneumococcal 23-valent vaccine 12/29/08 Recorded pneumococcal 13-valent vaccine 05/11/14 Given tetanus/diphtheria/pertussis, acel(Tdap) 04/01/09 Recorded 1Location History: [facility] 2Result Comment: [11/22/2016] [facility] 3Result Comment: [03/20/2016] [facility] Medications amLODIPine 5 mg oral tablet 5 mg, 1, tablet, By Mouth, Daily, # 90 tablet, Refills 3, Tot. Refills 3, Soft Stop, 02/10/19 13:40:35 EDT, [id number] - [address] [place] [address] Start Date: 02/10/19 Stop Date: 06/10/19 Status: Ordered aspirin 81 mg oral tablet 1 tablet = 81 mg, By Mouth, Daily, PER DR TRISTAN, # 30 tablet, 5 Refills, Maintenance, 04/30/19 10:28:00 EST, Tablet, [facility], 174, cm, 03/19/19 14:40:00 EST, Height, 57, kg, 03/19/19 14:07:00 EST, Dry Weight Start Date: 04/30/19 Status: Ordered Augmentin 875 mg-125 mg oral tablet 1 tablet, By Mouth, Every 12 hours, for 10 days, # 20 tablet, 0 Refills, Acute 10/04/19 14:19:00 EDT, 09/24/19 14:19:00 EDT, Tablet, [facility], 174, cm, 05/26/19 14:06:00 EST, Height, 57, kg, 03/19/19 14:07:00 EST, Dry Weight Start Date: 09/24/19 Stop Date: 10/04/19 Status: Ordered Combivent Respimat 20 mcg-100 mcg/inh inhalation aerosol 1 puffs, Inhalation, 4 times a day, PRN Wheezing/Shortness of Breath, # 1 each, 0 Refills, Maintenance, 06/12/19 8:06:00 EST, Aerosol, [facility], 1 puffs Inhalation 4 times a day,PRN:Wheezing/Shortness of Breath, 174, cm, 05/26/19 14:06:00... Start Date: 06/12/19 Status: Ordered ENSURE CHOCOLATE ENSURE CHOCOLATE, See Instructions, # 1 box, Refills 0, Tot. Refills 0, Maintenance, drink 2 ensuredaily dx code: r63.0 R63.4 , 08/31/17 9:38:21 EDT, Compound Start Date: 08/31/17 Status: Ordered Flomax 0.4 mg oral capsule 0.4 mg, 1, capsule, By Mouth, Daily, # 30 capsule, Refills 5, Tot. Refills 5, Maintenance, 208:38:00 EST, Route to Pharmacy Electronically, [facility], 174, cm, 03/19/19 14:40:00 EST, Height, 57, kg, 03/19/19 14:07:00 EST, Dry Weight Start Date: 04/20/19 Status: Ordered hydrocortisone 1% topical cream 1 application, Topically, 2 times a day, apply in a thin film to the affected skin and rub in gently and completely, # 30 Gm, 0 Refills, Maintenance, 10/15/17 14:37:33 EDT, Cream, 1 application Topically 2 times a day,Instr:apply in a thin film to the... Start Date: 10/15/17 Status: Ordered hydrOXYzine hydrochloride 25 mg oral tablet 1 tablet = 25 mg, By Mouth, 4 times a day, PRN for anxiety, # 40 tablet, 0 Refills, Maintenance, 12/03/17 13:16:47 EDT, Tablet Start Date: 12/03/17 Status: Ordered meclizine 25 mg oral tablet 1 tablet = 25 mg, By Mouth, 3 times a day, PRN for dizziness, for 30 days, # 30 tablet, 0 Refills, Acute 10/29/19 14:37:00 EDT, 09/29/19 14:37:00 EDT, Tablet, [facility], 174, cm, 05/26/19 14:06:00 EST, Height, 57, kg, 03/19/19 14:07:00 EST,... Start Date: 09/29/19 Stop Date: 10/29/19 Status: Ordered metoprolol 50 mg oral tablet, extended release 50 mg, 1, tablet, By Mouth, Daily, do not crush or chew, # 30 tablet, Refills 5, Tot. Refills 5, Maintenance, 07/30/19 9:47:00 EDT, Route to Pharmacy Electronically, [facility], 174, cm, 05/26/19 14:06:00 EST, Height, 57, kg, 03/19/19 14:07:... Start Date: 07/30/19 Status: Ordered nicotine 4 mg oral transmucosal lozenge 1 lozenge = 4 mg, By Mouth, Every hour, # 189 lozenge, 1 Refills, Maintenance, 11/14/18 6:49:56 EDT, 1 lozenge By Mouth Every hour Start Date: 11/14/18 Status: Ordered pravastatin 40 mg oral tablet 1 tablet = 40 mg, By Mouth, Daily, # 30 tablet, 11 Refills, Maintenance, 02/10/19 13:20:48 EDT, Tablet Start Date: 02/10/19 Status: Ordered Singulair 10 mg oral tablet 10 mg, 1, tablet, By Mouth, Daily at bedtime, PER ARPIT DUNN, # 30 tablet, Refills 5, Tot. Refills 5, Maintenance, 04/20/19 8:38:00 EST, Route to Pharmacy Electronically, [facility],174, cm, 03/19/19 14:40:00 EST, Height, 57, kg, 12/... Start Date: 04/20/19 Status: Ordered Spiriva HandiHaler 18 mcg inhalation capsule 1 capsule = 18 mcg, Inhalation, Daily, use two inhalations of one capsule for each dose, # 30 capsule, 6 Refills, Maintenance, 07/10/19 14:54:00 EDT, [facility], 174, cm, 05/26/19 14:06:00 EST, Height, 57, kg, 03/19/19 14:07:00 EST, Dry Weight Start Date: 07/10/19 Stop Date: 02/05/20 Status: Ordered traZODone 50 mg oral tablet 100 mg, 2, tablet, By Mouth, Daily at bedtime, # 60 tablet, Refills 2, Tot. Refills 2, Maintenance,04/30/19 10:39:00 EST, Route to Pharmacy Electronically, [facility], 174, cm, 03/19/19 14:40:00 EST, Height, 57, kg, 03/19/19 14:07:00 EST, D... Start Date: 04/30/19 Status: Ordered Tylenol Extra Strength 500 mg oral tablet See Instructions, PRN for pain, 1 or 2 tablet By Mouth 3 times a day PER DR TRISTAN, # 100 tablet, 11 Refills, Maintenance, 08/20/18 16:21:19 EDT, Tablet Start Date: 08/20/18 Status: Ordered ZyrTEC 10 mg oral tablet 1 tablet = 10 mg, By Mouth, Daily, # 30 tablet, 5 Refills, Maintenance, 07/10/19 14:54:00 EDT, Tablet, [facility], 174, cm, 05/26/19 14:06:00 EST, Height, 57, kg, 03/19/19 14:07:00 EST, DryWeight Start Date: 07/10/19 Status: Ordered Problem List Condition Effective Dates Status Health Status Inform ant Allergic rhinitis due to pollen(Confirmed) Active Anemia(Confirmed) Active Anxiety(Confirmed) Active Arthralgia of pelvis or thigh(Confirmed) Active Benign prostatic hyperplasia(Confirmed) Active Cerebrovascular disease(Confirmed) Active Chronic obstructive lung disease(Confirmed) Active Constipation(Confirmed) Active Positive fecal immunochemica l test(Confirmed) Active Gastroesophageal reflux(Confirmed) Active Hypercholesterolemia(Confirmed) Active HTN (hypertension)(Confirmed) Active ED (erectile dysfunction)(Confirmed) Active Insomnia(Confirmed) Active Internal hemorrhoids(Confirmed) 1 Active Livedo reticularis(Confirmed) Active Loss of appetite(Confirmed) Active Low backache(Confirmed) Active COPD, moderate(Confirmed) 2 Active Pulmonary nodules(Confirmed) 3 Active Frequent urination at night(Confirmed) Active PVD (peripheral vascular disease)(Confirmed) Active Polyp of colon(Confirmed) 4 Active Emphysema of lung(Confirmed) 5 Active Chronic pain in shoulder(Confirmed) Active Tachycardia(Confirmed) Active Tobacco abuse(Confirmed) Active Tubular adenoma of colon(Confirmed) 09/03/16 Active Vertigo(Confirmed) Active Weight decreased(Confirmed) Active 1colo [address] 2Dr. Green 3IMPRESSION: 1. [...] Diagnosis Diagnosis Type Effective Dates Health Status Cl inical Service Informant Allergic rhinitis due to pollen Discharge Diagnosis 09/24/19 Acute sinusitis Discharge Diagnosis 09/24/19 Social History Social History Type Response Smoking Status 5-9 cigarettes (betw een 1/4 to 1/2 pack)/day in last 30 days entered on: 05/26/19 Sex
--- OUTSIDE RECORDS SUMMARY | 2022-09-19 20:52 | XMS_ITS | Continuity of Care Document ---
Author Name Unknown Organization [facility] Address [address] [place] [address] ve [address] [place] [address]- Care Team Providers Care Computer Artist Name Role Phone Mike Kruse MD Primary Care Physician Encounter [facility] Date(s): 03/15/22 - 03/22/22 [facility] [address] [place] [address]- Attending Physician: Anoop Hall MD Allergies, Adverse Reactions, Alerts Substance Reaction Severity Status lisinopril Atenolol Trisha norvegensis Active cloNIDine Active Immunizations Given and Recorded Vaccine Date Status Refusal Reason [id number] 12y+ bivalent booster vax 1 01/20/22 Given influenza virus vaccine, inactivated 01/20/22 Give n influenza virus vaccine, inactivated 04/21/21 Give n influenza virus vaccine, inactivated 01/08/20 Give n influenza virus vaccine, inactivated 11/15/18 Mohan rded influenza virus vaccine, inactivated 12/05/17 Mohan rded influenza virus vaccine, inactivated 2, 3 11/21/16 Recorded influenza virus vaccine, inactivated 11/20/16 Mohan rded influenza virus vaccine, inactivated 4 01/26/16 Re corded influenza virus vaccine, inactivated 01/20/16 Mohan rded influenza virus vaccine, inactivated 02/04/15 Mohan rded influenza virus vaccine, inactivated 02/01/15 Mohan rded influenza virus vaccine, inactivated 12/09/13 Mohan rded influenza virus vaccine, inactivated 11/28/10 Mohan rded SARS-CoV-2 (COVID-19) Ad26 vaccine 09/14/20 Given tetanus-diphtheria toxoids (Td) 02/10/19 Given tetanus-diphtheria toxoids (Td) 02/10/19 Given zoster vaccine, inactivated 11/16/18 Recorded zoster vaccine, inactivated 11/15/18 Recorded pneumococcal 23-valent vaccine 01/20/16 Given pneumococcal 23-valent vaccine 12/29/08 Recorded pneumococcal 13-valent vaccine 05/11/14 Given tetanus/diphtheria/pertussis, acel(Tdap) 04/01/09 Recorded 1Result Comment: [facility] [id number] 2Location History: [facility] 3Result Comment: [11/22/2016] [facility] 4Result Comment: [03/20/2016] [facility] Medications acetaminophen 325 mg oral tablet 650 mg, 2, tablet, By Mouth, Every 4 hours, PRN, # 30 tablet, Refills 0, Tot. Refills 0, Maintenance, Pain , Mild, 02/21/22 15:17:00 EST, Route to Pharmacy Electronically, [facility], Partial fill upon patient request if the prescription... Start Date: 02/21/22 Status: Ordered albuterol 0.083% inhalation solution 3 mL = 2.5 mg, Inhalation, Every 6 hours, PRN for wheezing, # 60 each, 5 Refills, Maintenance, 10/28/21 14:18:00 EDT, Solution, [facility]/pharmacy #[id number], 165, cm, 10/28/21 4:51:00 EDT, Height, 60.5, kg, 10/26/21 13:16:00 EDT, Dry Weight Start Date: 10/28/21 Status: Ordered amLODIPine 5 mg oral tablet 1 tablet, By Mouth, Daily, # 90 tablet, 1 Refills, Maintenance, 02/09/22 12:58:00 EDT, [id number], 163, cm, 02/07/22 18:18:00 EDT, Height, 60, kg, 02/07/22 15:54:00 EDT, Dry Weight Start Date: 02/09/22 Status: Ordered Aspirin Low Dose 81 mg oral delayed release tablet 1 tablet, By Mouth, Daily, # 30 tablet, 11 Refills, 10/19/21 9:10:00 EDT, [facility]/pharmacy #[id number], 180, cm, 09/26/21 10:49:00 EDT, Height, 77, kg, 04/20/21 15:47:00 EST, Dry Weight Start Date: 10/19/21 Status: Ordered Breo Ellipta 200 mcg-25 mcg/inh inhalation powder 1 puffs, Inhalation, Daily, 0 Refills, Maintenance, 12/16/21 1:09:00 EDT, Powder, Partial fill uponpatient request if the prescription is for a schedule II opioid drug. Start Date: 12/16/21 Status: Ordered Cetirizine = 10 mg, By Mouth, Daily, 0 Refills, Maintenance, 12/16/21 1:02:00 EDT, Partial fill upon patient request if the prescription is for a schedule II opioid drug. Start Date: 12/16/21 Status: Ordered fluticasone 50 mcg/inh nasal spray See Instructions, USE 1 SPRAY IN EACH NOSTRIL TWICE A DAY, # 16 each, 5 Refills, Maintenance, 12/19/21 15:27:00 EDT, [facility], 30, USE 1 SPRAY IN EACH NOSTRIL TWICE A DAY, 162, cm, 12/16/21 14:39:00 EDT, Height, 59.5, kg, 12/16/21 0:28:00... Start Date: 12/19/21 Status: Ordered guaiFENesin 400 mg oral tablet 1 tablet = 400 mg, By Mouth, 4 times a day, # 120 tablet, 5 Refills, Maintenance, 10/28/21 14:19:00EDT, Tablet, [facility]/pharmacy #1230, 165, cm, 10/28/21 4:51:00 EDT, Height, 60.5, kg, 10/26/21 13:16:00EDT, Dry Weight Start Date: 10/28/21 Status: Ordered Loratadine 10 mg, By Mouth, Daily, Refills 0, Maintenance, 12/16/21 1:07:00 EDT, Partial fill upon patient request if the prescription is for a schedule II opioid drug. Start Date: 12/16/21 Status: Ordered losartan 100 mg oral tablet 1 tablet, By Mouth, Daily, # 30 tablet, 4 Refills, Maintenance, 12/23/21 13:25:00 EDT, [facility], 162, cm, 12/16/21 14:39:00 EDT, Height, 59.5, kg, 12/16/21 0:28:00 EDT, Dry Weight Start Date: 12/23/21 Status: Ordered magnesium oxide 400 mg oral tablet 1 tablet, By Mouth, Daily, # 30 tablet, 6 Refills, Maintenance, 10/19/21 9:10:00 EDT, [facility]/pharmacy #[id number], 180, cm, 09/26/21 10:49:00 EDT, Height, 77, kg, 04/20/21 15:47:00 EST, Dry Weight Start Date: 10/19/21 Stop Date: 10/19/21 Status: Ordered Metoprolol Succinate ER 50 mg oral tablet, extended release 1 tablet, By Mouth, Daily, INSTR:DO NOT CRUSH OR CHEW, # 30 tablet, 5 Refills, 10/19/21 9:10:00 EDT, [facility]/pharmacy #1230, 180, cm, 09/26/21 10:49:00 EDT, Height, 77, kg, 04/20/21 15:47:00 EST, Dry Weight Start Date: 10/19/21 Status: Ordered MiraLax oral powder for reconstitution = 17 Gm, By Mouth, 2 times a day, dissolve in water before taking, # 527 Gm, 11 Refills, Maintenance, 10/19/21 9:10:00 EDT, REC Powder, [facility]/pharmacy #1230, Partial fill upon patient request if the prescription is for a schedule II opioid drug., 17 Gm... Start Date: 10/19/21 Status: Ordered montelukast 10 mg oral tablet See Instructions, TAKE 1 TABLET BY MOUTH EVERY DAY AT BEDTIME, # 30 tablet, Refills 11, Tot. Refills 11, Maintenance, 01/20/22 14:03:00 EDT, Instructions Replace Required Details, Route to Pharmacy Electronically, [facility]/pharmacy #[id number], 162, cm, 01/20/22... Start Date: 01/20/22 Status: Ordered Neurontin 100 mg oral capsule 100 mg, 1, capsule, By Mouth, 3 times a day, # 90 capsule, Refills 2, Tot. Refills 2, Maintenance, 03/15/22 15:34:00 EST, Route to Pharmacy Electronically, [facility]/pharmacy #[id number], Partial fill upon patient request if the prescription is for a schedule II... Start Date: 03/15/22 Status: Ordered omeprazole 20 mg oral delayed release tablet 1 tablet = 20 mg, By Mouth, Daily, # 30 tablet, 11 Refills, Maintenance, 07/10/22 15:48:00 EDT, CR Tablet, [facility]/pharmacy #1230, Partial fill upon patient request if the prescription is for a schedule II opioid drug., 180, cm, 09/26/21 10:49:00 EDT, Hei... Start Date: 07/10/22 Stop Date: 07/05/23 Status: Ordered oxyCODONE 5 mg oral tablet 5 mg, 1, tablet, By Mouth, Every 4 hours, PRN, # 15 tablet, Refills 0, Tot. Refills 0, Maintenance,Pain , Severe, 02/21/22 15:17:00 EST, Route to Pharmacy Electronically, [facility], Partial fill upon patient request if the prescription... Start Date: 02/21/22 Status: Ordered pantoprazole 20 mg oral delayed release tablet 1 tablet = 20 mg, By Mouth, Daily, # 30 tablet, 11 Refills, Maintenance, 03/15/22 15:30:00 EST, 163, cm, 03/15/22 15:16:00 EST, Height, 60, kg, 02/07/22 15:54:00 EDT, Dry Weight Start Date: 03/15/22 Status: Ordered Plavix 75 mg oral tablet 75 mg, 1, tablet, By Mouth, Daily, # 90 tablet, Refills 1, Tot. Refills 1, Maintenance, 11/18/21 16:53:00 EDT, Route to Pharmacy Electronically, [facility]/pharmacy #[id number], Partial fill upon patient request if the prescription is for a schedule II opioid drug... Start Date: 11/18/21 Status: Ordered pravastatin 40 mg oral tablet See Instructions, TAKE 1 TABLET BY MOUTH EVERY DAY, # 30 tablet, 5 Refills, Maintenance, 12/19/21 15:29:00 EDT, [facility], 162, cm, 12/16/21 14:39:00 EDT, Height, 59.5, kg, 12/16/21 0:28:00 EDT, Dry Weight Start Date: 12/19/21 Status: Ordered ProAir HFA 90 mcg/inh inhalation aerosol with adapter 2, puffs, Inhalation, Every 6 hours, PRN, # 8.5 Gm, Refills 1, Tot. Refills 1, 12/13/21 12:40:00 EDT, Route to Pharmacy Electronically, [id number], [facility],162, cm, 12/13/21 4:46:00 EDT, Height, 60.3, kg, 08... Start Date: 12/13/21 Status: Ordered riboflavin 400 mg oral capsule 1 capsule = 400 mg, By Mouth, Daily, # 30 capsule, 5 Refills, Maintenance, 10/19/21 9:10:00 EDT, [facility]/pharmacy #1230, Partial fill upon patient request if the prescription is for a schedule II opioid drug., 180, cm, 09/26/21 10:49:00 EDT, Height, 77, k... Start Date: 10/19/21 Status: Ordered SEROquel 25 mg oral tablet 25 mg, 1, tablet, By Mouth, Daily at bedtime, # 30 tablet, Refills 5, Tot. Refills 5, Maintenance, 10/28/21 14:23:00 EDT, Route to Pharmacy Electronically, [facility]/pharmacy #[id number], 165, cm, 10/28/21 4:51:00 EDT, Height, 60.5, kg, 10/26/21 13:16:00 EDT, Dry... Start Date: 10/28/21 Status: Ordered Spiriva Respimat 1.25 mcg/inh inhalation aerosol 2 puffs, Inhalation, Daily, # 4 Gm, 5 Refills, 10/19/21 9:10:00 EDT, [facility]/pharmacy #[id number], 180, cm, 09/26/21 10:49:00 EDT, Height, 77, kg, 04/20/21 15:47:00 EST, Dry Weight Start Date: 10/19/21 Status: Ordered Symbicort 160mcg/4.5mcg Inhaler 2, puffs, Inhalation, 2 times a day, # 10.2 Gm, Refills 10, Tot. Refills 10, 10/19/21 9:10:00 EDT, Route to Pharmacy Electronically, [id number], [facility]/pharmacy #[id number], 180, cm,09/26/21 10:49:00 EDT, Height, 77, kg, 04/20/21 15:... Start Date: 10/19/21 Status: Ordered tamsulosin 0.4 mg oral capsule 1, capsule, By Mouth, Daily, # 30 capsule, Refills 4, Tot. Refills 4, Maintenance, 10/19/21 9:10:00EDT, Route to Pharmacy Electronically, [facility]/pharmacy #[id number], 180, cm, 09/26/21 10:49:00 EDT, Height, 77, kg, 04/20/21 15:47:00 EST, Dry Weight Start Date: 10/19/21 Status: Ordered venlafaxine 37.5 mg oral capsule, extended release 37.5 mg, 1, capsule, By Mouth, Daily, # 30 capsule, Refills 1, Tot. Refills 1, Maintenance, 02/09/22 12:57:00 EDT, Route to Pharmacy Electronically, [facility]/pharmacy #[id number], Partial fill upon patient request if the prescription is for a schedule II opioid... Start Date: 02/09/22 Status: Ordered Ventolin HFA 108 mcg/inh inhalation aerosol with adapter 2 puffs, Inhalation, Every 4 hours, PRN for wheezing, # 18 Gm, 0 Refills, Maintenance, 03/21/22 13:25:00 EST, Aerosol, [facility]/pharmacy #[id number], Partial fill upon patient request if the prescription is fora schedule II opioid drug., 163, cm, 03/15/22 15:16... Start Date: 03/21/22 Status: Ordered Problem List Condition Confirmation Course Effective Dates Status Health Status Informant Allergic rhinitis due to pollen Confirmed Active Anxiety Confirmed Active Arthralgia of pelvis or thigh Confirmed Active Benign prostatic hyperplasia Confirmed Active Cerebrovascular disease Confirmed Active COPD, group D, by GOLD 2017 classification Confirmed Active Constipation Confirmed Active Erectile dysfunction Confirmed Active Gastroesophageal reflux Confirmed Active Hypercholesterolemia Confirmed Active HTN (hypertension) Confirmed Active Insomnia Confirmed Active Internal hemorrhoids 1 Confirmed Active Livedo reticularis Confirmed Active Low backache Confirmed Active Major depression in complete remission Confirmed Active Pulmonary nodules 2 Confirmed Active Frequent urination at night Confirmed Active PVD (peripheral vascular disease) Confirmed Active Chronic pain in shoulder Confirmed Active Tobacco abuse Confirmed Active 1c2016 2IMPRESSION: 1. Severe emphysema. No evidence of chronic [...] CT Images: From the [employer] 2017. Vital Signs Most recent to oldest [Reference Range]: 1 Height 163 cm (03/15/22 3:16 PM) Pulse Rate [55-90 bpm] 91 bpm *H* (03/15/22 3:16 PM) Blood Pressure [90-138/55-84 mm Hg] 107/ 73mm Hg (03/15/22 3:16 PM) Temperature [96.8-100.4 DegF] 97.4 DegF (03/15/22 3:16 PM) Blood pressure sites Arm, right (03/15/22 3:16 PM) Temperature Route Temporal (03/15/22 3:16 PM) Social History Social History Type Response Smoking Status 5-9 cigarettes (betw een 1/4 to 1/2 pack)/day in last 30 days; Type: Cigarettes; Previous treatment: None; Number of years: 50; Total pack years: .5; entered on: 02/17/22 Sex Implantable Device List Procedure Provider Procedure Date Device Type Site Repair Hernia Inguinal Bilateral Open Anoop Hall MD 02/20/22 Unknown Groin Left Device Identifier Serial Number Lot or Batch Number Manufacturing Date Expiration Date Distinct Identification Code MRI Safety Implantable Status Assigning Authority Unknown Unknown Unknown Unknown 03/13/26 Unknown Unknown Active Un known Patient Care team information Care Team Personnel Name: Ana West RN Position: [facility] RN Member Role: Primary Care Nurse Name: Odalys Orozco RN Position: [facility] RN Member Role: Primary Care Nurse Name: Mike Kruse MD Position: [facility] Primary Care Physician Member Role: PCP Address: Address: [address] [place] [id number] Name: Maryam Valenzuela RN Position: S RN Member Role: Primary Care Nurse Name: Deandre Lara LPN Position: S RN Member Role: Primary Care Nurse Name: Aruna Winkler RN Position: S RN Member Role: Primary Care Nurse Name: Sabrina Hare RN Position: S RN Member Role: Primary Care Nurse Name: Kristyn Olivo RN Position: S RN Member Role: Primary Care Nurse Name: Marguerite Florentino RN Position: S RN Member Role: Primary Care Nurse Care Team Related Persons Name: ENA SOTO Address: home [address] [place] [address] Name: ELISA TOMPKINS Address: [place] [address] Name: JOSE RAFAEL LI
--- OUTSIDE RECORDS SUMMARY | 2022-09-19 20:52 | XMS_ITS | Continuity of Care Document ---
Author Name Unknown Organization [facility] Address [address] [place] [address]- Care Team Providers Care Special Needs Tutor Name Role Phone Aixa BERNABE, Mike Bennett Primary Care Physician [phone] Encounter [facility] Date(s): 03/30/22 - 04/06/22 [facility] Adult [address] [place] [address]- Encounter Diagnosis Cough(Discharge Diagnosis) - 03/30/22 Attending Physician: Nisha Hernandez NP Allergies, Adverse Reactions, Alerts Substance Reaction Severity Status lisinopril Atenolol Trisha norvegensis Active cloNIDine Active Immunizations Given and Recorded Vaccine Date Status Refusal Reason [id number] 12y+ bivalent booster vax 1 01/20/22 Given [...] Given tetanus/diphtheria/pertussis, acel(Tdap) 04/01/09 Recorded 1Result Comment: [facility] [id number] 2Location History: [facility] 3Result Comment: [11/22/2016] [facility] 4Result Comment: [03/20/2016] [facility] Medications acetaminophen 325 mg oral tablet 650 mg, 2, tablet, By Mouth, Every 4 hours, PRN, # 30 tablet, Refills 0, Tot. Refills 0, Maintenance, Pain , Mild, 02/21/22 15:17:00 EST, Route to Pharmacy Electronically, [facility], Partial fill upon patient request if the prescription... Start Date: 02/21/22 Status: Ordered albuterol 0.083% inhalation solution 3 mL = 2.5 mg, Inhalation, Every 6 hours, PRN for wheezing, # 60 each, 5 Refills, Maintenance, 10/28/21 14:18:00 EDT, Solution, [facility]/pharmacy #[id number], 165, cm, 10/28/21 4:51:00 EDT, Height, 60.5, kg, 10/26/21 13:16:00 EDT, Dry Weight Start Date: 10/28/21 Status: Ordered amLODIPine 5 mg oral tablet 1 tablet, By Mouth, Daily, # 90 tablet, 1 Refills, Maintenance, 02/09/22 12:58:00 EDT, [id number], 163, cm, 02/07/22 18:18:00 EDT, Height, 60, kg, 02/07/22 15:54:00 EDT, Dry Weight Start Date: 02/09/22 Status: Ordered Aspirin Low Dose 81 mg oral delayed release tablet 1 tablet, By Mouth, Daily, # 30 tablet, 11 Refills, 10/19/21 9:10:00 EDT, [facility]/pharmacy #1230, 180, cm, 09/26/21 10:49:00 EDT, Height, [...] each, 5 Refills, Maintenance, 12/19/21 15:27:00 EDT, [facility], 30, USE 1 SPRAY IN EACH NOSTRIL TWICE A DAY, 162, cm, 12/16/21 14:39:00 EDT, Height, 59.5, kg, 12/16/21 0:28:00... Start Date: 12/19/21 Status: Ordered guaiFENesin 400 mg oral tablet 1 tablet = 400 mg, By Mouth, 4 times a day, # 120 tablet, 5 Refills, Maintenance, 10/28/21 14:19:00EDT, Tablet, [facility]/pharmacy #1230, 165, cm, 10/28/21 4:51:00 EDT, Height, [...] tablet, 4 Refills, Maintenance, 12/23/21 13:25:00 EDT, [facility], 162, cm, 12/16/21 14:39:00 EDT, Height, 59.5, kg, 12/16/21 0:28:00 EDT, Dry Weight Start Date: 12/23/21 Status: Ordered magnesium oxide 400 mg oral tablet 1 tablet, By Mouth, Daily, # 30 tablet, 6 Refills, Maintenance, 10/19/21 9:10:00 EDT, [facility]/pharmacy #1230, 180, cm, 09/26/21 10:49:00 EDT, Height, 77, kg, 04/20/21 15:47:00 EST, Dry Weight Start Date: 10/19/21 Stop Date: 10/19/21 Status: Ordered Metoprolol Succinate ER 50 mg oral tablet, extended release 1 tablet, By Mouth, Daily, INSTR:DO NOT CRUSH OR CHEW, # 30 tablet, 5 Refills, 10/19/21 9:10:00 EDT, [facility]/pharmacy #1230, 180, cm, 09/26/21 10:49:00 EDT, Height, 77, kg, 04/20/21 15:47:00 EST, Dry Weight Start Date: 10/19/21 Status: Ordered MiraLax oral powder for reconstitution = 17 Gm, By Mouth, 2 times a day, dissolve in water before taking, # 527 Gm, 11 Refills, Maintenance, 10/19/21 9:10:00 EDT, REC Powder, [facility]/pharmacy #1230, Partial fill upon patient request if the prescription is for a schedule II opioid drug., 17 Gm... Start Date: 10/19/21 Status: Ordered montelukast 10 mg oral tablet See Instructions, TAKE 1 TABLET BY MOUTH EVERY DAY AT BEDTIME, # 30 tablet, Refills 11, Tot. Refills 11, Maintenance, 01/20/22 14:03:00 EDT, Instructions Replace Required Details, Route to Pharmacy Electronically, [facility]/pharmacy #1230, 162, cm, 01/20/22... Start Date: 01/20/22 Status: Ordered Neurontin 100 mg oral capsule 100 mg, 1, capsule, By Mouth, 3 times a day, # 90 capsule, Refills 2, Tot. Refills 2, Maintenance, 03/15/22 15:34:00 EST, Route to Pharmacy Electronically, [facility]/pharmacy #[id number], Partial fill upon patient request if the prescription is for a schedule II... Start Date: 03/15/22 Status: Ordered omeprazole 20 mg oral delayed release tablet 1 tablet = 20 mg, By Mouth, Daily, # 30 tablet, 11 Refills, Maintenance, 07/10/22 15:48:00 EDT, CR Tablet, [facility]/pharmacy #1230, Partial fill upon patient request if the prescription is for a schedule II opioid drug., 180, cm, 09/26/21 10:49:00 EDT, Hei... Start Date: 07/10/22 Stop Date: 07/05/23 Status: Ordered oxyCODONE 5 mg oral tablet 5 mg, 1, tablet, By Mouth, Every 4 hours, PRN, # 15 tablet, Refills 0, Tot. Refills 0, Maintenance,Pain , Severe, 02/21/22 15:17:00 EST, Route to Pharmacy Electronically, [facility], Partial fill upon patient request if [...] 11/18/21 16:53:00 EDT, Route to Pharmacy Electronically, [facility]/pharmacy #1230, Partial fill upon patient request if the prescription is for a schedule II opioid drug... Start Date: 11/18/21 Status: Ordered pravastatin 40 mg oral tablet See Instructions, TAKE 1 TABLET BY MOUTH EVERY DAY, # 30 tablet, 5 Refills, Maintenance, 12/19/21 15:29:00 EDT, [facility], 162, cm, 12/16/21 14:39:00 EDT, Height, 59.5, kg, 12/16/21 0:28:00 EDT, Dry Weight Start Date: 12/19/21 Status: Ordered ProAir HFA 90 mcg/inh inhalation aerosol with adapter 2, puffs, Inhalation, Every 6 hours, PRN, # 8.5 Gm, Refills 1, Tot. Refills 1, 12/13/21 12:40:00 EDT, Route to Pharmacy Electronically, [id number], [facility],162, cm, 12/13/21 4:46:00 EDT, Height, 60.3, kg, 08... Start Date: 12/13/21 Status: Ordered ProAir HFA 90 mcg/inh inhalation aerosol with adapter 2, puffs, Inhalation, Every 6 hours, PRN, # 8.5 Gm, Refills 0, Tot. Refills 0, Maintenance, 03/30/22 16:20:00 EST, Aerosol, Route to Pharmacy Electronically, [id number], [facility]/pharmacy #[id number], 163, cm, 03/30/22 10:35:00 EST, Hei... Start Date: 03/30/22 Status: Ordered riboflavin 400 mg oral capsule 1 capsule = 400 mg, By Mouth, Daily, # 30 capsule, 5 Refills, Maintenance, 10/19/21 9:10:00 EDT, [facility]/pharmacy #1230, Partial fill upon patient request if the prescription is for a schedule II opioid drug., 180, cm, 09/26/21 10:49:00 EDT, Height, 77, k... Start Date: 10/19/21 Status: Ordered SEROquel 25 mg oral tablet 25 mg, 1, tablet, By Mouth, Daily at bedtime, # 30 tablet, Refills 5, Tot. Refills 5, Maintenance, 10/28/21 14:23:00 EDT, Route to Pharmacy Electronically, [facility]/pharmacy #1230, 165, cm, 10/28/21 4:51:00 EDT, Height, 60.5, kg, 10/26/21 13:16:00 EDT, Dry... Start Date: 10/28/21 Status: Ordered Spiriva Respimat 1.25 mcg/inh inhalation aerosol 2 puffs, Inhalation, Daily, # 4 Gm, 5 Refills, 10/19/21 9:10:00 EDT, [facility], 180, cm, 09/26/21 10:49:00 EDT, Height, 77, kg, 04/20/21 15:47:00 EST, Dry Weight Start Date: 10/19/21 Status: Ordered Symbicort 160mcg/4.5mcg Inhaler 2, puffs, Inhalation, 2 times a day, # 10.2 Gm, Refills 10, Tot. Refills 10, 10/19/21 9:10:00 EDT, Route to Pharmacy Electronically, [id number], [facility]/pharmacy #1230, 180, cm,09/26/21 10:49:00 EDT, Height, 77, kg, 04/20/21 15:... Start Date: 10/19/21 Status: Ordered tamsulosin 0.4 mg oral capsule 1, capsule, By Mouth, Daily, # 30 capsule, Refills 4, Tot. Refills 4, Maintenance, 10/19/21 9:10:00EDT, [facility] 180, cm, 09/26/21 10:49:00 EDT, Height, 77, kg, 04/20/21 15:47:00 EST, Dry Weight Start Date: 10/19/21 Status: Ordered venlafaxine 37.5 mg oral capsule, extended release See Instructions, TAKE 1 CAPSULE BY MOUTH EVERY DAY, # 30 capsule, 1 Refills, Maintenance, 03/31/2211:53:00 EST, [id number], 163, cm, 03/30/22 10:35:00 EST, Height, 60, kg, 02/07/22 15:54:00 EDT, Dry Weight Start Date: 03/31/22 Status: Ordered Ventolin HFA 108 mcg/inh inhalation aerosol with adapter 2 puffs, Inhalation, Every 4 hours, PRN for wheezing, # 18 Gm, 0 Refills, Maintenance, 03/21/22 13:25:00 EST, Aerosol, [facility]/pharmacy #[id number], Partial fill upon patient request if [...] shoulder Confirmed Active Tobacco abuse Confirmed Active 1colo 2016 2IMPRESSION: 1. Severe emphysema. No evidence of [...] Dates Health Status [facility] Service Informant Cough Discharge Diagnosis 03/30/22 Vital Signs Most recent to oldest [Reference Range]: 1 Height 163 cm (03/30/22 10:35 AM) Social History Social History Type Response Smoking [...] Team Personnel Name: Ana West RN Position: [facility] RN Member Role: Primary Care Nurse Name: Odalys Orozco RN Position: S RN Member Role: Primary Care Nurse Name: Mike Kruse MD Position: [facility] Primary Care Physician Member Role: PCP Address: Address: [address] [place] [id number]- [place] Name: Maryam Valenzuela RN Position: S RN Member Role: Primary Care Nurse Name: Deandre Lara LPN Position: [facility] RN Member Role: Primary Care Nurse Name: Aruna Winkler RN Position: [facility] RN Member Role: Primary Care Nurse Name: Sabrina Hare RN Position: [facility] RN Member Role: Primary Care Nurse Name: Kristyn Olivo RN Position: [facility] RN Member Role: Primary Care Nurse Name: Marguerite Florentino RN Position: [facility] RN Member Role: Primary Care Nurse Care Team Related Persons Name: ENA SOTO Address: home [address] [place] [address] Name: ELISA TOMPKINS Address: [place] [address] Name: JOSE RAFAEL LI
--- OUTSIDE RECORDS SUMMARY | 2022-09-19 20:52 | XMS_ITS | Continuity of Care Document ---
Author Name Unknown Organization [facility] Address [address] [place] [id number]- Care Team Providers Care Field Administrative Assistant Name Role Phone Mike Kruse MD Primary Care Physician [facility]counter [facility] Date(s): 10/12/21 - 11/11/21 [facility] [address] [place] [id number]- Allergies, Adverse Reactions, Alerts Substance Reaction Severity Status lisinopril Atenolol Trisha norvegensis Active cloNIDine Active Immunizations Given and Recorded Vaccine Date Status Refusal Reason influenza virus vaccine, inactivated 04/21/21 Give n influenza virus vaccine, inactivated 01/08/20 Give n influenza virus vaccine, inactivated 11/15/18 Mohan rded influenza virus vaccine, inactivated 12/05/17 Mohan rded influenza virus vaccine, inactivated 1, 2 11/21/16 [...] [facility] 3Result Comment: [03/20/2016] [facility] Medications albuterol 0.083% inhalation solution 3 mL = 2.5 mg, Inhalation, Every 6 hours, PRN for wheezing, # 60 each, 5 Refills, Maintenance, 10/28/21 14:18:00 EDT, Solution, [facility]/pharmacy #1230, 165, cm, 10/28/21 4:51:00 EDT, Height, 60.5, kg, 10/26/21 13:16:00 EDT, Dry Weight Start Date: 10/28/21 Status: Ordered amLODIPine 5 mg oral tablet 5 mg, 1, tablet, By Mouth, Daily, # 90 tablet, Refills 1, Tot. Refills 1, Soft Stop, 10/19/21 9:10:00 EDT, Route to Pharmacy Electronically, [facility]/pharmacy #1230, 180, cm, 09/26/21 10:49:00 EDT, Height, 77, kg, 04/20/21 15:47:00 EST, Dry Weight Start Date: 10/19/21 Status: Ordered Aspirin Low Dose 81 mg oral delayed release tablet 1 tablet, By Mouth, Daily, # 30 tablet, 11 Refills, 10/19/21 9:10:00 EDT, [facility]/pharmacy #1230, 180, cm, 09/26/21 10:49:00 EDT, Height, 77, kg, 04/20/21 15:47:00 EST, Dry Weight Start Date: 10/19/21 Status: Ordered Dulcolax Stool Softener 100 mg oral capsule 1 capsule = 100 mg, By Mouth, 2 times a day, # 60 capsule, 11 Refills, Maintenance, 07/21/22 14:09:00 EDT, Capsule, [facility]/pharmacy #1230, Partial fill upon patient request if the prescription is for a schedule II opioid drug., 180, cm, 09/26/21 10:49:00... Start Date: 07/21/22 Stop Date: 07/16/23 Status: Ordered fluticasone 50 mcg/inh nasal spray See Instructions, USE 1 SPRAY IN EACH NOSTRIL TWICE A DAY, # 16 Gm, 5 Refills, 10/19/21 9:10:00 EDT, [facility]/pharmacy #1230, 30, USE 1 SPRAY IN EACH NOSTRIL TWICE A DAY, 180, cm, 09/26/21 10:49:00 EDT, Height, 77, kg, 04/20/21 15:47:00 EST, Dry Weight Start Date: 10/19/21 Status: Ordered guaiFENesin 100 mg/5 mL oral liquid 5 mL = 100 mg, By Mouth, Every 4 hours, PRN for cough, # 300 mL, 0 Refills, Maintenance, 10/12/21 17:43:00 EDT, Liquid, [facility]/pharmacy #1230, Partial fill upon patient request if the prescription is for a schedule II opioid drug., 180, cm, 09/26/21 10:4... Start Date: 10/12/21 Status: Ordered guaiFENesin 400 mg oral tablet 1 tablet = 400 mg, By Mouth, 4 times a day, # 120 tablet, 5 Refills, Maintenance, 10/28/21 14:19:00EDT, Tablet, [facility]/pharmacy #1230, 165, cm, 10/28/21 4:51:00 EDT, Height, 60.5, kg, 10/26/21 13:16:00EDT, Dry Weight Start Date: 10/28/21 Status: Ordered losartan 100 mg oral tablet 1 tablet, By Mouth, Daily, # 30 tablet, 5 Refills, Maintenance, 10/19/21 9:10:00 EDT, [facility]/pharmacy #1230, 180, cm, 09/26/21 10:49:00 EDT, Height, 77, kg, 04/20/21 15:47:00 EST, Dry Weight Start Date: 10/19/21 Status: Ordered magnesium oxide 400 mg oral tablet 1 tablet, By Mouth, Daily, # 30 tablet, 6 Refills, Maintenance, 10/19/21 9:10:00 EDT, [facility]/pharmacy #1230, 180, cm, 09/26/21 10:49:00 EDT, Height, 77, kg, 04/20/21 15:47:00 EST, Dry Weight Start Date: 10/19/21 Stop Date: 10/19/21 Status: Ordered Metoprolol Succinate ER 50 mg oral tablet, extended release 1 tablet, By Mouth, Daily, INSTR:DO NOT CRUSH OR CHEW, # 30 tablet, 5 Refills, 10/19/21 9:10:00 EDT, [facility]/pharmacy #1230, 180, cm, 09/26/21 10:49:00 EDT, Height, 77, kg, 04/20/21 15:47:00 EST, Dry Weight Start Date: 10/19/21 Status: Ordered MiraLax oral powder for reconstitution = 17 Gm, By Mouth, 2 times a day, dissolve in water before taking, # 527 Gm, 11 Refills, Maintenance, 10/19/21 9:10:00 EDT, REC Powder, [facility]/pharmacy #1230, Partial fill upon patient request if the prescription is for a schedule II opioid drug., 17 Gm... Start Date: 10/19/21 Status: Ordered montelukast 10 mg oral tablet 1, tablet, By Mouth, Daily at bedtime, # 30 tablet, Refills 5, Tot. Refills 5, 10/19/21 9:10:00 EDT, Route to Pharmacy Electronically, [facility]/pharmacy #1230, 180, cm, 09/26/21 10:49:00 EDT, Height, 77, kg, 04/20/21 15:47:00 EST, Dry Weight Start Date: 10/19/21 Status: Ordered omeprazole 20 mg oral delayed release tablet 1 tablet = 20 mg, By Mouth, Daily, # 30 tablet, 11 Refills, Maintenance, 07/10/22 15:48:00 EDT, CR Tablet, [facility]/pharmacy #1230, Partial fill upon patient request if the prescription is for a schedule II opioid drug., 180, cm, 09/26/21 10:49:00 EDT, Hei... Start Date: 07/10/22 Stop Date: 07/05/23 Status: Ordered pravastatin 40 mg oral tablet 1 tablet = 40 mg, By Mouth, Daily, # 90 tablet, 1 Refills, Maintenance, 10/19/21 9:10:00 EDT, Tablet, [facility]/pharmacy #1230, 180, cm, 09/26/21 10:49:00 EDT, Height, 77, kg, 04/20/21 15:47:00 EST, Dry Weight Start Date: 10/19/21 Status: Ordered predniSONE 20 mg oral tablet See Instructions, Take at 7-8 AM 2 tablet QD x 10 D, then 1 tab QD x 10 D, # 30 tablet, 0 Refills, Acute 11/17/21 12:00:00 EDT, 10/28/21 14:20:00 EDT, Tablet, [facility]/pharmacy #1230, 165, cm, 10/28/21 4:51:00 EDT, Height, 60.5, kg, 10/26/21 13:16:00 EDT,... Start Date: 10/28/21 Stop Date: 11/17/21 Status: Ordered ProAir HFA 90 mcg/inh inhalation aerosol with adapter 2, puffs, Inhalation, Every 6 hours, PRN, # 8.5 Gm, Refills 6, Tot. Refills 6, 10/19/21 9:10:00 EDT, Route to Pharmacy Electronically, [id number], [facility]/pharmacy #1230, 180, cm, 09/26/21 10:49:00 EDT, Height, 77, kg, 04/20/21 1... Start Date: 10/19/21 Status: Ordered riboflavin 400 mg oral capsule 1 capsule = 400 mg, By Mouth, Daily, # 30 capsule, 5 Refills, Maintenance, 10/19/21 9:10:00 EDT, [facility]/pharmacy #1230, Partial fill upon patient request if the prescription is for a schedule II opioid drug., 180, cm, 09/26/21 10:49:00 EDT, Height, 77, k... Start Date: 10/19/21 Status: Ordered SEROquel 25 mg oral tablet 25 mg, 1, tablet, By Mouth, Daily at bedtime, # 30 tablet, Refills 5, Tot. Refills 5, Maintenance, 10/28/21 14:23:00 EDT, Route to Pharmacy Electronically, [facility]/pharmacy #1230, 165, cm, 10/28/21 4:51:00 EDT, Height, 60.5, kg, 10/26/21 13:16:00 EDT, Dry... Start Date: 10/28/21 Status: Ordered Spiriva Respimat 1.25 mcg/inh inhalation aerosol 2 puffs, Inhalation, Daily, # 4 Gm, 5 Refills, 10/19/21 9:10:00 EDT, [facility]/pharmacy #1230, 180, cm, 09/26/21 10:49:00 EDT, Height, 77, kg, 04/20/21 15:47:00 EST, Dry Weight Start Date: 10/19/21 Status: Ordered Symbicort 160mcg/4.5mcg Inhaler 2, puffs, Inhalation, 2 times a day, # 10.2 Gm, Refills 10, Tot. Refills 10, 10/19/21 9:10:00 EDT, Route to Pharmacy Electronically, [id number], [facility]/pharmacy #1230, 180, cm,09/26/21 10:49:00 EDT, Height, 77, kg, 04/20/21 15:... Start Date: 10/19/21 Status: Ordered tamsulosin 0.4 mg oral capsule 1, capsule, By Mouth, Daily, # 30 capsule, Refills 4, Tot. Refills 4, Maintenance, 10/19/21 9:10:00EDT, Route to Pharmacy Electronically, [facility]/pharmacy #1230, 180, cm, 09/26/21 10:49:00 EDT, Height, 77, kg, 04/20/21 15:47:00 EST, Dry Weight Start Date: 10/19/21 Status: Ordered venlafaxine 37.5 mg oral capsule, extended release 37.5 mg, 1, capsule, By Mouth, Daily, # 30 capsule, Refills 1, Tot. Refills 1, Maintenance, 10/19/21 9:10:00 EDT, Route to Pharmacy Electronically, [facility]/pharmacy #1230, Partial fill upon patient request if the prescription is for a schedule II opioid d... Start Date: 10/19/21 Status: Ordered Problem List Condition Effective Dates Status Health Status Inform ant Allergic rhinitis due to pollen(Confirmed) Active Anxiety(Confirmed) Active Arthralgia of pelvis or thigh(Confirmed) Active Benign prostatic hyperplasia(Confirmed) Active Cerebrovascular disease(Confirmed) Active COPD, group D, by GOLD 2017 classification(Confirmed) Active Constipation(Confirmed) Active Erectile dysfunction(Confirmed) Active Gastroesophageal reflux(Confirmed) Active Hypercholesterolemia(Confirmed) Active HTN (hypertension)(Confirmed) Active Insomnia(Confirmed) Active Internal hemorrhoids(Confirmed) 1 Active Livedo reticularis(Confirmed) Active Low backache(Confirmed) Active Pulmonary nodules(Confirmed) 2 Active Frequent urination at night(Confirmed) Active PVD (peripheral vascular disease)(Confirmed) Active Chronic pain in shoulder(Confirmed) Active Tobacco abuse(Confirmed) Active 1colo 2016 2IMPRESSION: 1. Severe emphysema. [...] History Social History Type Response Smoking Status Former smoker, quit more than 30 days ago entered on: 09/26/21 Sex
--- OUTSIDE RECORDS SUMMARY | 2022-09-19 20:52 | XMS_ITS | Continuity of Care Document ---
Author Name Unknown Organization [facility] Trevor lt Address [address] [place] [address]- Care Team Providers Care Instrument Mechanic Name Role Phone Mike Kruse MD Primary Care Physician [facility]21 - 12/17/21 [facility] Adult [address] [place] [address]- Allergies, Adverse Reactions, Alerts Substance Reaction Severity [...] 5 Refills, Maintenance, 10/28/21 14:18:00 EDT, Solution, [facility]/pharmacy #[id number], 165, cm, 10/28/21 4:51:00 EDT, Height, 60.5, kg, 10/26/21 13:16:00 EDT, Dry Weight Start Date: 10/28/21 Status: Ordered amLODIPine 5 mg oral tablet 5 mg, 1, tablet, By Mouth, Daily, # 90 tablet, Refills 1, Tot. Refills 1, Soft Stop, 10/19/21 9:10:00 EDT, Route to Pharmacy Electronically, [facility]/pharmacy #[id number], 180, cm, 09/26/21 10:49:00 EDT, Height, 77, kg, 04/20/21 15:47:00 EST, Dry Weight Start Date: 10/19/21 Status: Ordered Aspirin Low Dose 81 mg oral delayed release tablet 1 tablet, By Mouth, Daily, # 30 tablet, 11 Refills, 10/19/21 9:10:00 EDT, [facility]/pharmacy #1230, 180, cm, 09/26/21 10:49:00 [...] 16 Gm, 5 Refills, 10/19/21 9:10:00 EDT, [facility]/pharmacy #1230, 30, USE 1 SPRAY IN EACH NOSTRIL TWICE A DAY, 180, cm, 09/26/21 10:49:00 EDT, Height, 77, kg, 04/20/21 15:47:00 EST, Dry Weight Start Date: 10/19/21 Status: Ordered guaiFENesin 400 mg oral tablet 1 tablet = 400 mg, By Mouth, 4 times a day, # 120 tablet, 5 Refills, Maintenance, 10/28/21 14:19:00EDT, Tablet, [facility]/pharmacy #1230, 165, cm, 10/28/21 4:51:00 [...] tablet, 5 Refills, Maintenance, 10/19/21 9:10:00 EDT, [facility]/pharmacy #1230, 180, cm, 09/26/21 10:49:00 EDT, Height, 77, kg, 04/20/21 15:47:00 EST, Dry Weight Start Date: 10/19/21 Status: Ordered magnesium oxide 400 mg oral tablet 1 tablet, By Mouth, Daily, # 30 tablet, 6 Refills, Maintenance, 10/19/21 9:10:00 EDT, [facility]/pharmacy #1230, 180, cm, 09/26/21 10:49:00 EDT, Height, 77, kg, 04/20/21 15:47:00 EST, Dry Weight Start Date: 10/19/21 Stop Date: 10/19/21 Status: Ordered Metoprolol Succinate ER 50 mg oral tablet, extended release 1 tablet, By Mouth, Daily, INSTR:DO NOT CRUSH OR CHEW, # 30 tablet, 5 Refills, 10/19/21 9:10:00 EDT, [facility]/pharmacy #1230, 180, cm, 09/26/21 10:49:00 EDT, Height, 77, kg, 04/20/21 15:47:00 EST, Dry Weight Start Date: 10/19/21 Status: Ordered MiraLax oral powder for reconstitution = 17 Gm, By Mouth, 2 times a day, dissolve in water before taking, # 527 Gm, 11 Refills, Maintenance, 10/19/21 9:10:00 EDT, REC Powder, [facility]/pharmacy #[id number], Partial fill upon patient request if the prescription is for a schedule II opioid drug., 17 Gm... Start Date: 10/19/21 Status: Ordered montelukast 10 mg oral tablet 1, tablet, By Mouth, Daily at bedtime, # 30 tablet, Refills 5, Tot. Refills 5, 10/19/21 9:10:00 EDT, Route to Pharmacy Electronically, [facility]/pharmacy #1230, 180, cm, 09/26/21 10:49:00 EDT, Height, 77, kg, 04/20/21 15:47:00 EST, Dry Weight Start Date: 10/19/21 Status: Ordered omeprazole 20 mg oral delayed release tablet 1 tablet = 20 mg, By Mouth, Daily, # 30 tablet, 11 Refills, Maintenance, 07/10/22 15:48:00 EDT, CR Tablet, [facility]/pharmacy #1230, Partial fill upon patient request if the prescription is for a schedule II opioid drug., 180, cm, 09/26/21 10:49:00 EDT, Hei... Start Date: 07/10/22 Stop Date: 07/05/23 Status: Ordered Plavix 75 mg oral tablet 75 mg, 1, tablet, By Mouth, Daily, # 90 tablet, Refills 1, Tot. Refills 1, Maintenance, 11/18/21 16:53:00 EDT, Route to Pharmacy Electronically, [facility]/pharmacy #1230, Partial fill upon patient request if the prescription is for a schedule II opioid drug... Start Date: 11/18/21 Status: Ordered pravastatin 40 mg oral tablet 1 tablet = 40 mg, By Mouth, Daily, # 90 tablet, 1 Refills, Maintenance, 10/19/21 9:10:00 EDT, Tablet, [facility]/pharmacy #1230, 180, cm, 09/26/21 10:49:00 EDT, Height, 77, kg, 04/20/21 15:47:00 EST, Dry Weight Start Date: 10/19/21 Status: Ordered predniSONE 10 mg oral tablet See Instructions, 4 tab po daily for 2 days, followed by 3 tab po daily for 3 days, followed by 2 tab po daily for 2 days followed by 1 tab po daily for 1 day, # 22 tablet, 0 Refills, Maintenance, 12/13/21 12:37:00 EDT, Tablet, [facility]... Start Date: 12/13/21 Status: Ordered ProAir HFA 2 puffs, Inhalation, Every 6 hours, PRN Wheezing/Shortness of Breath, 0 Refills, Maintenance, 12/16/21 1:08:00 EDT, Partial fill upon patient request if the prescription is for a schedule II opioid drug. Start Date: 12/16/21 Status: Ordered ProAir HFA 90 mcg/inh inhalation aerosol with adapter 2, puffs, Inhalation, Every 6 hours, PRN, # 8.5 Gm, Refills 1, Tot. Refills 1, 12/13/21 12:40:00 EDT, Route to Pharmacy Electronically, [id number], [facility] 3,162, cm, 12/13/21 4:46:00 EDT, Height, 60.3, kg, 08... Start Date: 12/13/21 Status: Ordered riboflavin 400 mg oral capsule 1 capsule = 400 mg, By Mouth, Daily, # 30 capsule, 5 Refills, Maintenance, 10/19/21 9:10:00 EDT, [facility]/pharmacy #1230, Partial fill upon patient request if the prescription is for a schedule II opioid drug., 180, cm, 09/26/21 10:49:00 EDT, Height, 77, k... Start Date: 10/19/21 Status: Ordered SEROquel 25 mg oral tablet 25 mg, 1, tablet, By Mouth, Daily at bedtime, # 30 tablet, Refills 5, Tot. Refills 5, Maintenance, 10/28/21 14:23:00 EDT, Route to Pharmacy Electronically, [facility]/pharmacy #1230, 165, cm, 10/28/21 4:51:00 EDT, Height, 60.5, kg, 10/26/21 13:16:00 EDT, Dry... Start Date: 10/28/21 Status: Ordered Spiriva Respimat 1.25 mcg/inh inhalation aerosol 2 puffs, Inhalation, Daily, # 4 Gm, 5 Refills, 10/19/21 9:10:00 EDT, [facility]/pharmacy #1230, 180, cm, 09/26/21 10:49:00 EDT, Height, 77, kg, 04/20/21 15:47:00 EST, Dry Weight Start Date: 10/19/21 Status: Ordered Symbicort 160mcg/4.5mcg Inhaler 2, puffs, Inhalation, 2 times a day, # 10.2 Gm, Refills 10, Tot. Refills 10, 10/19/21 9:10:00 EDT, Route to Pharmacy Electronically, [id number], [facility]/pharmacy #1230, 180, cm,09/26/21 10:49:00 EDT, Height, 77, kg, 04/20/21 15:... Start Date: 10/19/21 Status: Ordered tamsulosin 0.4 mg oral capsule 1, capsule, By Mouth, Daily, # 30 capsule, Refills 4, Tot. Refills 4, Maintenance, 10/19/21 9:10:00EDT, Route to Pharmacy Electronically, [facility]/pharmacy #1230, 180, cm, 09/26/21 10:49:00 EDT, Height, 77, kg, 04/20/21 15:47:00 EST, Dry Weight Start Date: 10/19/21 Status: Ordered venlafaxine 37.5 mg oral capsule, extended release 37.5 mg, 1, capsule, By Mouth, Daily, # 30 capsule, Refills 1, Tot. Refills 1, Maintenance, 10/19/21 9:10:00 EDT, [facility] Partial fill upon patient request if the prescription is for a schedule II opioid d... Start Date: 10/19/21 Status: Ordered Vitamin B2 = 400 mg, By Mouth, Daily, 0 Refills, Maintenance, 12/16/21 1:04:00 EDT, Partial fill upon patient request if the prescription is for a schedule II opioid drug. Start Date: 12/16/21 Status: Ordered Problem List Condition Effective Dates [...] in shoulder(Confirmed) Active Tobacco abuse(Confirmed) Active 1colo 2017 2IMPRESSION: 1. Severe emphysema. No evidence of [...] 30 days ago entered on: 09/26/21 Sex Care Team Personnel Name: Aixa BERNABE, Mike Bennett Address: [address] [place] [id number]
--- OUTSIDE RECORDS SUMMARY | 2022-09-19 20:52 | XMS_ITS | Continuity of Care Document ---
Author Name Unknown Organization [facility] Trevor lt Address [address] [place] [address]- Care Team Providers Care Pickle Water Pump Operator Name Role Phone Mike Tristan MD Primary Care Physician [facility]19 - 07/12/19 [facility] Adult [address] [place] [address]- [facility] Attending Physician: Mirtha HOOD, Rachell Bennett Allergies, Adverse Reactions, Alerts Substance Reaction Severity [...] 02/10/19 13:40:35 EDT, Route to Pharmacy Electronically, NCPDP_[id number], [facility] [address] [facility] Start Date: 02/10/19 Stop Date: 06/10/19 Status: Ordered aspirin 81 mg oral tablet 1 tablet = 81 mg, By Mouth, Daily, PER DR TRISTAN, # 30 tablet, 5 Refills, Maintenance, 04/30/19 10:28:00 EST, Tablet, [facility], 174, cm, 03/19/19 14:40:00 EST, Height, 57, kg, 03/19/19 14:07:00 EST, Dry Weight Start Date: 04/30/19 Status: Ordered Augmentin 875 mg-125 mg oral tablet 1 tablet, By Mouth, Every 12 hours, for 10 days, # 20 tablet, 0 Refills, Acute 07/20/19 14:55:00 EDT, 07/10/19 14:55:00 EDT, Tablet, [facility], 174, cm, 05/26/19 14:06:00 EST, Height, 57, kg, 03/19/19 14:07:00 EST, Dry Weight Start Date: 07/10/19 Stop Date: 07/20/19 Status: Ordered Combivent Respimat 20 mcg-100 mcg/inh inhalation aerosol 1 puffs, Inhalation, 4 times a day, PRN Wheezing/Shortness of Breath, # 1 each, 0 Refills, Maintenance, 06/12/19 8:06:00 EST, Aerosol, [facility], 1 puffs Inhalation 4 times a day,PRN:Wheezing/Shortness [...] capsule, Refills 5, Tot. Refills 5, Maintenance, 01/05/208:38:00 EST, Route to Pharmacy Electronically, [facility], 174, cm, 03/19/19 14:40:00 EST, Height, [...] 3 times a day, PRN for dizziness, # 30 tablet, 0 Refills, Acute 08/14/19 7:00:00 EDT, 07/10/19 14:55:00 EDT, Tablet, [facility], 174, cm, 05/26/19 14:06:00 EST, Height, 57, kg, 03/19/19 14:07:00 EST, Dry Weight Start Date: 07/10/19 Stop Date: 08/14/19 Status: Ordered metoprolol 50 mg oral tablet, extended release 50 mg, 1, tablet, By Mouth, Daily, do not crush or chew, # 30 tablet, Refills 2, Tot. Refills 2, Maintenance, 07/10/19 14:54:00 EDT, Route to Pharmacy Electronically, [facility], 174, cm, 05/26/19 14:06:00 EST, Height, 57, kg, 03/19/19 14:07... Start Date: 07/10/19 Status: Ordered nicotine 4 mg oral transmucosal [...] tablet, By Mouth, Daily at bedtime, PER RACHELL DUNN, # 30 tablet, Refills 5, Tot. Refills 5, Maintenance, 04/20/19 8:38:00 EST, Route to Pharmacy Electronically, [facility],174, cm, 03/19/19 14:40:00 EST, Height, 57, kg, 12/... Start Date: 04/20/19 Status: Ordered Spiriva HandiHaler 18 mcg inhalation capsule 1 capsule = 18 mcg, Inhalation, Daily, use two inhalations of one capsule for each dose, # 30 capsule, 6 Refills, Maintenance, 07/10/19 14:54:00 EDT, [facility], 174, cm, 05/26/19 14:06:00 EST, Height, 57, kg, 03/19/19 14:07:00 EST, Dry Weight Start Date: 07/10/19 Stop Date: 02/05/20 Status: Ordered traZODone 50 mg oral tablet 100 mg, 2, tablet, By Mouth, Daily at bedtime, # 60 tablet, Refills 2, Tot. Refills 2, Maintenance,04/30/19 10:39:00 EST, Route to Pharmacy Electronically, [facility], 174, cm, 03/19/19 14:40:00 EST, Height, [...] 5 Refills, Maintenance, 07/10/19 14:54:00 EDT, Tablet, [facility], 174, cm, 05/26/19 14:06:00 EST, Height, [...] pack)/day in last 30 days entered on: 2/10/20 Sex
--- OUTSIDE RECORDS SUMMARY | 2022-09-19 20:53 | XMS_ITS | Continuity of Care Document ---
Author Name Unknown Organization [facility] Trevor Address [address] [place] [id number]- Care Team Providers Care Relay Motorman Name Role Phone Mike Kruse MD Primary Care Physician [phone] [facility]): 03/30/22 - 04/29/22 [facility] Adult [address] [place] [address]- Allergies, Adverse Reactions, Alerts Substance Reaction Severity Status lisinopril Atenolol Trisha norvegensis Active cloNIDine Active Immunizations Given and Recorded Vaccine Date Status Refusal Reason [id number] 12y+ bivalent booster vax 1 01/20/22 Given [...] Given tetanus/diphtheria/pertussis, acel(Tdap) 04/01/09 Recorded 1Result Comment: [facility] [id number] 2Location History: [facility] 3Result Comment: [11/22/2016] [facility] 4Result Comment: [03/20/2016] [facility] Medications acetaminophen 325 mg oral tablet 650 mg, 2, tablet, By Mouth, Every 4 hours, PRN, # 30 tablet, Refills 0, Tot. Refills 0, Maintenance, Pain , Mild, 02/21/22 15:17:00 EST, Route to Pharmacy Electronically, [facility], Partial fill upon patient request if the prescription... Start Date: 02/21/22 Status: Ordered amLODIPine 5 mg oral tablet 1 tablet, By Mouth, Daily, # 90 tablet, 1 Refills, Maintenance, 02/09/22 12:58:00 EDT, [facility] STORE 12095, 163, cm, 02/07/22 18:18:00 EDT, Height, 60, kg, 02/07/22 15:54:00 EDT, Dry Weight Start Date: 02/09/22 Status: Ordered Aspirin Low Dose 81 mg oral delayed release tablet 1 tablet, By Mouth, Daily, # 30 tablet, 11 Refills, 10/19/21 9:10:00 EDT, [facility]/pharmacy #1230, 180, cm, 09/26/21 10:49:00 EDT, Height, 77, kg, 04/20/21 15:47:00 EST, Dry Weight Start Date: 10/19/21 Status: Ordered Breo Ellipta 200 mcg-25 mcg/inh inhalation powder 1 puffs, Inhalation, Daily, 0 Refills, Maintenance, 12/16/21 1:09:00 EDT, Powder, Partial fill uponpatient request if the prescription is for a schedule II opioid drug. Start Date: 12/16/21 Status: Ordered cetirizine 10 mg oral tablet = 10 mg, By Mouth, Daily, # 30 tablet, 11 Refills, Maintenance, 04/25/22 10:31:00 EST, Tablet, [facility]/pharmacy #[id number], Partial fill upon patient request if the prescription is for a schedule II opioid drug., 163, cm, 03/30/22 10:35:00 EST, Height, 60, kg,... Start Date: 04/25/22 Status: Ordered fluticasone 50 mcg/inh nasal spray See Instructions, SPRAY 1 SPRAY INTO EACH NOSTRIL TWICE A DAY, # 48 mL, 1 Refills, Maintenance, 04/25/22 18:01:00 EST, [facility]/pharmacy #0373, 90, SPRAY 1 SPRAY INTO EACH NOSTRIL TWICE A DAY, 163, cm, 03/30/22 10:35:00 EST, Height, 60, kg, 02/07/22 15:54:... Start Date: 04/25/22 Status: Ordered guaiFENesin 400 mg oral tablet 1 tablet = 400 mg, By Mouth, 4 times a day, # 120 tablet, 5 Refills, Maintenance, 10/28/21 14:19:00EDT, Tablet, [facility]/pharmacy #1230, 165, cm, 10/28/21 4:51:00 [...] tablet, By Mouth, Daily, # 90 tablet, 3 Refills, Maintenance, 04/26/22 9:42:00 EST, [facility] STORE 05161, 163, cm, 03/30/22 10:35:00 EST, Height, 60, kg, 02/07/22 15:54:00 EDT, Dry Weight Start Date: 04/26/22 Status: Ordered magnesium oxide 400 mg oral tablet 1 tablet, By Mouth, Daily, # 30 tablet, 6 Refills, Maintenance, 10/19/21 9:10:00 EDT, [facility]/pharmacy #1230, 180, cm, 09/26/21 10:49:00 EDT, Height, 77, kg, 04/20/21 15:47:00 EST, Dry Weight Start Date: 10/19/21 Stop Date: 10/19/21 Status: Ordered Metoprolol Succinate ER 50 mg oral tablet, extended release See Instructions, 1 TABLET BY MOUTH DAILY,INSTR:INSTR:DO NOT CRUSH OR CHEW, # 90 tablet, 1 Refills,Maintenance, 04/25/22 18:03:00 EST, [facility]/pharmacy #0373, 163, cm, 03/30/22 10:35:00 EST, Height, 60,kg, 02/07/22 15:54:00 EDT, Dry Weight Start Date: 04/25/22 Status: Ordered MiraLax oral powder for reconstitution = 17 Gm, By Mouth, 2 times a day, dissolve in water before taking, # 527 Gm, 11 Refills, Maintenance, 10/19/21 9:10:00 EDT, REC Powder, [facility]/pharmacy #1230, Partial fill upon patient request if the prescription is for a schedule II opioid drug., 17 Gm... Start Date: 10/19/21 Status: Ordered montelukast 10 mg oral tablet See Instructions, TAKE 1 TABLET BY MOUTH EVERY DAY AT BEDTIME, # 30 tablet, Refills 11, Tot. Refills 11, Maintenance, 01/20/22 14:03:00 EDT, Instructions Replace Required Details, Route to Pharmacy Electronically, [id number], 162, cm, 01/20/22... Start Date: 01/20/22 Status: Ordered Neurontin 100 mg oral capsule 100 mg, 1, capsule, By Mouth, 3 times a day, # 90 capsule, Refills 2, Tot. Refills 2, Maintenance, 03/15/22 15:34:00 EST, Route to Pharmacy Electronically, [id number], Partial fill upon patient request if the prescription is for a schedule II... Start Date: 03/15/22 Status: Ordered omeprazole 20 mg oral delayed release tablet 1 tablet = 20 mg, By Mouth, Daily, # 30 tablet, 11 Refills, Maintenance, 07/10/22 15:48:00 EDT, CR Tablet, [facility]/pharmacy #1230, Partial fill upon patient [...] 02/21/22 15:17:00 EST, Route to Pharmacy Electronically, [facility], Partial fill [...] 11/18/21 16:53:00 EDT, [id number] fill upon patient request if the prescription is for a schedule II opioid drug... Start Date: 11/18/21 Status: Ordered pravastatin 40 mg oral tablet See Instructions, TAKE 1 TABLET BY MOUTH EVERY DAY, # 30 tablet, 5 Refills, Maintenance, 12/19/21 15:29:00 EDT, [facility], 162, cm, 12/16/21 14:39:00 EDT, Height, 59.5, kg, 12/16/21 0:28:00 EDT, Dry Weight Start Date: 12/19/21 Status: Ordered riboflavin 400 mg oral capsule 1 capsule = 400 mg, By Mouth, Daily, # 30 capsule, 5 Refills, Maintenance, 10/19/21 9:10:00 EDT, [facility]/pharmacy #1230, Partial fill upon patient request if the prescription is for a schedule II opioid drug., 180, cm, 09/26/21 10:49:00 EDT, Height, 77, k... Start Date: 10/19/21 Status: Ordered SEROquel 25 mg oral tablet 25 mg, 1, tablet, By Mouth, Daily at bedtime, # 30 tablet, Refills 5, Tot. Refills 5, Maintenance, 10/28/21 14:23:00 EDT, [facility], cm, 10/28/21 4:51:00 EDT, Height, 60.5, kg, 10/26/21 13:16:00 EDT, Dry... Start Date: 10/28/21 Status: Ordered Spiriva Respimat 1.25 mcg/inh inhalation aerosol 2 puffs, Inhalation, Daily, # 4 Gm, 5 Refills, 10/19/21 9:10:00 EDT, [facility]/pharmacy #1230, 180, cm, 09/26/21 10:49:00 EDT, Height, 77, kg, 04/20/21 15:47:00 EST, Dry Weight Start Date: 10/19/21 Status: Ordered Symbicort 160mcg/4.5mcg Inhaler 2, puffs, Inhalation, 2 times a day, # 10.2 Gm, Refills 10, Tot. Refills 10, 10/19/21 9:10:00 EDT, Route to Pharmacy Electronically, [id number], [facility] 180, cm,09/26/21 10:49:00 EDT, Height, 77, kg, 04/20/21 15:... Start Date: 10/19/21 Status: Ordered tamsulosin 0.4 mg oral capsule 1, capsule, By Mouth, Daily, # 30 capsule, Refills 11, Tot. Refills 11, Maintenance, 04/25/22 9:53:00 EST, [id number] 163, cm, 03/30/22 10:35:00 EST, Height, 60, kg, 02/07/22 15:54:00 EDT, Dry Weight Start Date: 04/25/22 Status: Ordered venlafaxine 37.5 mg oral capsule, extended release See Instructions, TAKE 1 CAPSULE BY MOUTH EVERY DAY, # 30 capsule, 1 Refills, Maintenance, 03/31/2211:53:00 EST, [facility] STORE [facility], 163, cm, 03/30/22 10:35:00 EST, Height, 60, kg, 02/07/22 15:54:00 EDT, Dry Weight Start Date: 03/31/22 Status: Ordered Ventolin HFA 108 mcg/inh inhalation aerosol with adapter 2 puffs, Inhalation, Every 4 hours, PRN NEEDED FOR WHEEZING, # 18 each, 11 Refills, Maintenance,04/26/22 9:42:00 EST, [facility], 163, cm, 03/30/22 10:35:00 EST, Height, 60, kg, 02/07/22 15:54:00 EDT, Dry Weight Start Date: 04/26/22 Status: Ordered Problem List Condition Confirmation Course [...] Team Personnel Name: Ana West RN Position: S RN Member Role: Primary Care Nurse Name: Odalys Orozco RN Position: [facility] RN Member Role: Primary Care Nurse Name: Mike Kruse MD Position: [facility] Primary Care Physician Member Role: PCP Address: Address: [address] [place] [address]- Name: Maryam Valenzuela RN Position: S RN Member Role: Primary Care Nurse Name: Deandre Lara LPN Position: S RN Member Role: Primary Care Nurse Name: Hayden Queen RN Position: [facility] RN Member Role: Primary Care Nurse Name: Aruna Winkler RN Position: [facility] RN Member Role: Primary Care Nurse Name: Sabrina Hare RN Position: [facility] RN Member Role: Primary Care Nurse Name: Kristyn Olivo RN Position: [facility] RN Member Role: Primary Care Nurse Name: Marguerite Florentino RN Position: [facility] RN Member Role: Primary Care Nurse Care Team Related Persons Name: ENA SOTO Address: [address] [place] [address] Name: ELISA TOMPKINS Address: [place] [address] Name: JOSE RAFAEL LI
--- OUTSIDE RECORDS SUMMARY | 2022-09-19 20:53 | XMS_ITS | Continuity of Care Document ---
Author Name Unknown Organization [facility] [place] Trevor lt Address [address] [place] [address]- Care Team Providers Care Deputy Assessor Name Role Phone Mike Tristan MD Primary Care Physician Encounter [facility] Date(s): 09/30/19 - 10/30/19 [facility] [place] Adult [address] [place] [address]- [facility] Attending Physician: Rachell Shannon NP Referring Physician: Mike Tristan MD Allergies, Adverse Reactions, Alerts Substance [...] 02/10/19 13:40:35 EDT, Route to Pharmacy Electronically, NCPDP_[id number], [facility] - [address] [place] [address] Start Date: 02/10/19 Stop Date: 06/10/19 Status: Ordered aspirin 81 mg oral tablet 1 tablet = 81 mg, By Mouth, Daily, PER DR TRISTAN, # 30 tablet, 5 Refills, Maintenance, 10/13/19 13:42:00 EDT, Tablet, [facility], 174, cm, 10/01/19 13:58:00 EDT, Height, 57, kg, 03/19/19 14:07:00 EST, Dry Weight Start Date: 10/13/19 Status: Ordered Combivent Respimat 20 mcg-100 mcg/inh inhalation aerosol 1 puffs, Inhalation, 4 times a day, PRN Wheezing/Shortness of Breath, # 1 each, 0 Refills, Maintenance, 06/12/19 8:06:00 EST, Aerosol, [facility], 1 puffs Inhalation 4 times a day,PRN:Wheezing/Shortness [...] capsule, Refills 5, Tot. Refills 5, Maintenance, 10/12/2012:42:00 EDT, Route to Pharmacy Electronically, [facility], 174, cm, 10/01/19 13:58:00 EDT, Height, 57, kg, 03/19/19 14:07:00 EST, Dry Weight Start Date: 10/13/19 Status: Ordered hydrocortisone 1% topical cream 1 [...] dizziness, for 30 days, # 30 tablet, 1 Refills, Acute 12/28/19 14:37:00 EDT, 10/29/19 14:37:00 EDT, Tablet, [facility], 174, cm, 10/01/19 13:58:00 EDT, Height, 57, kg, 03/19/19 14:07:00 EST,... Start Date: 10/29/19 Stop Date: 12/28/19 Status: Ordered metoprolol 50 mg oral tablet, extended release 50 mg, 1, tablet, By Mouth, Daily, do not crush or chew, # 30 tablet, Refills 2, Tot. Refills 2, Maintenance, 10/14/19 8:46:00 EDT, Route to Pharmacy Electronically, [facility], 174, cm, 10/01/19 13:58:00 EDT, Height, 57, kg, 03/19/19 14:07:... Start Date: 10/14/19 Status: Ordered nicotine 4 mg oral transmucosal [...] By Mouth, Daily at bedtime, PER RACHELL FRANCHESKA [employer], # 30 tablet, Refills 5, Tot. Refills 5, Maintenance, 10/13/19 13:42:00 EDT, Route to Pharmacy Electronically, [facility], 174, cm, 10/01/19 13:58:00 EDT, Height, 57, kg, 12... Start Date: 10/13/19 Status: Ordered Spiriva HandiHaler 18 mcg inhalation capsule 1 capsule = 18 mcg, Inhalation, Daily, use two inhalations of one capsule for each dose, # 30 capsule, 6 Refills, Maintenance, 07/10/19 14:54:00 EDT, [facility], 174, cm, 05/26/19 14:06:00 EST, Height, 57, kg, 03/19/19 14:07:00 EST, Dry Weight Start Date: 07/10/19 Stop Date: 02/05/20 Status: Ordered traZODone 50 mg oral tablet 100 mg, 2, tablet, By Mouth, Daily at bedtime, # 60 tablet, Refills 2, Tot. Refills 2, Maintenance,10/14/19 8:46:00 EDT, Route to Pharmacy Electronically, [facility], 174, cm, 10/01/19 13:58:00 EDT, Height, 57, kg, 03/19/19 14:07:00 ESTDr... Start Date: 10/14/19 Status: Ordered Tylenol Extra Strength 500 mg [...] 5 Refills, Maintenance, 07/10/19 14:54:00 EDT, Tablet, [facility], 174, cm, 05/26/19 14:06:00 EST, Height, [...]
--- OUTSIDE RECORDS SUMMARY | 2022-09-19 20:53 | XMS_ITS | Continuity of Care Document ---
Author Name Unknown Organization [facility] Trevor lt Address [address] [place] [address]- Care Team Providers Care Central Aisle Cashier Name Role Phone Mike Tristan MD Primary Care Physician Encounter [facility] Date(s): 03/22/21 - 03/29/21 [facility] Adult [address] [place] [address]- Attending Physician: Not on Staff, Attending MD Allergies, Adverse Reactions, Alerts Substance Reaction [...] 01/10/21 16:35:00 EDT, Route to Pharmacy Electronically, [facility], 174, cm, 12/30/20 14:45:00 EDT, Height, 57, kg, 03/19/19 14:07:00 EST, Dry Weight Start Date: 01/10/21 Status: Ordered Aspirin Low Dose 81 mg oral delayed release tablet 1 tablet, By Mouth, Daily, # 30 tablet, 2 Refills, [facility], 174, cm, 01/14/21 15:08:00EDT, Height, 57, kg, 03/19/19 14:07:00 EST, Dry Weight Start Date: 01/25/21 Status: Ordered Augmentin 875 mg-125 mg oral tablet 1 tablet, By Mouth, Every 12 hours, for 10 days, with food or milk, # 20 tablet, 0 Refills, Acute 04/01/21 15:09:00 EST, 03/22/21 15:09:00 EST, Tablet, [facility], Partial fill upon patientrequest if the prescription is for a schedule II op... Start Date: 03/22/21 Stop Date: 04/01/21 Status: Ordered Combivent Respimat 20 mcg-100 mcg/inh inhalation aerosol 1 puffs, Inhalation, 4 times a day, PRN NEEDED FOR WHEEZING OR SHORTNESS OF BREATH, # 4 Gm, 11 Refills, Maintenance, 05/07/20 10:33:00 EST, [facility], 30, 1 puffs Inhalation 4 times a day,PRN: NEEDED FOR WHEEZING OR SHORTNESS OF BREATH... Start Date: 05/07/20 Status: Ordered Coricidin HBP Cough & Cold 4 mg-30 mg oral tablet 1 tablet, By Mouth, 3 times a day, PRN for cold symptoms, # 21 tablet, 0 Refills, Maintenance, 03/18/21 15:02:00 EST, Tablet, [facility], Partial fill upon patient request if the prescription is for a schedule II opioid drug., 1 tablet By Mo... Start Date: 03/18/21 Status: Ordered docusate sodium 100 mg oral capsule 1 capsule = 100 mg, By Mouth, 2 times a day, PRN as needed for constipation, # 100 capsule, 2 Refills, Maintenance, 08/17/20 14:09:00 EDT, Capsule, [facility], Partial fill upon patient request if [...] NOSTRIL TWICE A DAY, # 16 Gm, 1 Refills, [facility], 30, USE 1 SPRAY IN EACH NOSTRIL TWICE A DAY, 174, cm, 03/15/21 10:16:00 EST, Height, 57, kg, 03/19/19 14:07:00 EST, Dry Weight Start Date: 03/15/21 Status: Ordered hydrocortisone 1% topical cream 1 [...] 1 Refills, Maintenance, 11/30/20 11:11:00 EDT, Capsule, [facility], Partial fill upon patient request if the prescription is for a scheduleII opioid drug., 174, cm, 11/30/20 10:34:00 EDT, He... Start Date: 11/30/20 Status: Ordered losartan 100 mg oral tablet 1 tablet, By Mouth, Daily, # 30 tablet, 11 Refills, Maintenance, 07/12/20 14:44:00 EDT, [facility], 174, cm, 07/12/20 14:32:00 EDT, Height, 57, kg, 03/19/19 14:07:00 EST, Dry Weight Start Date: 07/12/20 Status: Ordered metoprolol 50 mg oral tablet, extended release 50 mg, 1, tablet, By Mouth, Daily, do not crush or chew, # 30 tablet, Refills 11, Tot. Refills 11, Maintenance, 07/12/20 14:44:00 EDT, Route to Pharmacy Electronically, [facility], 174, cm,07/12/20 14:32:00 EDT, Height, 57, kg, 03/19/19 14:... Start Date: 07/12/20 Status: Ordered montelukast 10 mg oral tablet 1, tablet, By Mouth, Daily at bedtime, # 30 tablet, Refills 4, Tot. Refills 0, Maintenance, 10/20/20 11:07:00 EDT, Route to Pharmacy Electronically, [facility], 174, cm, 09/14/20 14:37:00 EDT, Height, 57, kg, 03/19/19 14:07:00 EST, Dry Weight Start Date: 10/20/20 Status: Ordered Nasacort Allergy 24HR 55 mcg/inh nasal spray 2 sprays, Nares, Both, Daily, # 3 each, 0 Refills, Maintenance, 01/08/20 14:50:00 EDT, [facility], 2 sprays Nares, Both Daily, 174, cm, 01/08/20 14:29:00 EDT, Height, 57, kg, 03/19/19 14:07:00 EST, Dry Weight Start Date: 01/08/20 Status: Ordered nicotine 4 mg oral transmucosal lozenge 1 lozenge = 4 mg, By Mouth, Every hour, # 189 lozenge, 11 Refills, Maintenance, 07/12/20 14:49:00 EDT, [facility], 1 lozenge By Mouth Every hour, 174, cm, 07/12/20 14:32:00 EDT, Height, 57,kg, 03/19/19 14:07:00 EST, Dry Weight Start Date: 07/12/20 Status: Ordered omeprazole 20 mg oral enteric coated capsule 1 capsule, By Mouth, Daily, # 14 capsule, 0 Refills, Maintenance, 03/22/21 15:07:00 EST, [facility], 174, cm, 03/22/21 13:58:00 EST, Height Start Date: 03/22/21 Stop Date: 04/05/21 Status: Ordered pravastatin 40 mg oral tablet 1 tablet = 40 mg, By Mouth, Daily, # 90 tablet, 1 Refills, Maintenance, 08/24/20 15:56:00 EDT, Tablet, [facility], 174, cm, 08/17/20 13:45:00 EDT, Height, 57, kg, 03/19/19 14:07:00 EST, DryWeight Start Date: 08/24/20 Status: Ordered predniSONE 20 mg oral tablet See Instructions, 2 tablets daily for 5 days and then 1 tablet daily for 5 days, # 15 tablet, 0 Refills, Maintenance, 03/22/21 15:09:00 EST, [facility], Partial fill upon patient request ifthe prescription is for a schedule II opioid drug.,... Start Date: 03/22/21 Status: Ordered ProAir HFA 90 mcg/inh inhalation aerosol with adapter 2, puffs, Inhalation, Every 6 hours, PRN, # 8.5 Gm, Refills 0, Tot. Refills 0, Maintenance, 03/22/21 15:09:00 EST, Aerosol, Route to Pharmacy Electronically, NCPDP_[id number], [facility], 174, cm, 03/22/21 13:58:00 EST, Height Start Date: 03/22/21 Status: Ordered Remeron 15 mg oral tablet 1 tablet = 15 mg, By Mouth, Daily at bedtime, REPLACES ZOLOFT, # 30 tablet, 1 Refills, Maintenance,06/22/20 15:13:00 EST, Tablet, [facility], Partial fill upon patient request if the prescription is for a schedule II opioid drug., 174, cm,... Start Date: 06/22/20 Status: Ordered Spiriva Respimat 1.25 mcg/inh inhalation aerosol 2 puffs, Inhalation, Daily, # 4 Gm, 11 Refills, Maintenance, 05/25/20 13:51:00 EST, Aerosol, [facility], Partial fill upon patient request if the prescription is for a schedule II opioid drug., 174, cm, 05/07/20 10:13:00 EST, Height, 57, kg,... Start Date: 05/25/20 Status: Ordered Symbicort 160mcg/4.5mcg Inhaler 2, puffs, Inhalation, 2 times a day, # 1 each, Refills 11, Tot. Refills 11, Maintenance, 05/25/20 13:51:00 EST, Aerosol, [id number], 174,cm, 05/07/20 10:13:00 EST, Height, 57, kg, 03/19/19... Start Date: 05/25/20 Status: Ordered tamsulosin 0.4 mg oral capsule 1, capsule, By Mouth, Daily, # 30 capsule, Refills 5, Route to Pharmacy Electronically, [facility], 174, cm, 03/15/21 10:16:00 EST, Height, 57, kg, 03/19/19 14:07:00 EST, Dry Weight Start Date: 03/15/21 Status: Ordered traZODone 50 mg oral tablet 100 mg, 2, tablet, By Mouth, Daily at bedtime, # 60 tablet, Refills 11, Tot. Refills 11, Maintenance, 07/12/20 14:43:00 EDT, Route to Pharmacy Electronically, [facility], 174, cm, 07/12/20 14:32:00 EDT, Height, 57, kg, 03/19/19 14:07:00 EST,... Start Date: 07/12/20 Status: Ordered Tylenol Extra Strength 500 mg oral tablet See Instructions, PRN for pain, 1 or 2 tablet By Mouth 3 times a day PER DR TRISTAN, # 100 tablet, 11 Refills, Maintenance, 06/08/20 10:22:00 EST, Tablet, [facility], 174, cm, 06/08/20 9:48:00 EST, Height, [...] oldest [Reference Range]: 1 Height 174 cm (03/22/21 1:58 PM) Social History Social History Type Response Smoking Status 5-9 cigarettes (betw een 1/4 to 1/2 pack)/day in last 30 days entered on: 05/26/19 Sex
--- OUTSIDE RECORDS SUMMARY | 2022-09-19 20:53 | XMS_ITS | Continuity of Care Document ---
Author Name Unknown Organization [facility] Trevor lt Address [address] [place] [address]- Care Team Providers Care Program Technician Name Role Phone Mike Tristan MD Primary Care Physician Encounter [facility] Date(s): 07/15/19 - 07/25/19 [facility] Adult [address] [place] [address]- [facility] Attending Physician: Admtr, Eliza Admitting Physician: Admtr, [...] 02/10/19 13:40:35 EDT, Route to Pharmacy Electronically, OKPDP_[id number], [facility] - [address] [place] [address] Start Date: 02/10/19 Stop Date: 06/10/19 Status: Ordered aspirin 81 mg oral tablet 1 tablet = 81 mg, By Mouth, Daily, PER DR TRISTAN, # 30 tablet, 5 Refills, Maintenance, 04/30/19 10:28:00 EST, Tablet, [facility], 174, cm, 03/19/19 14:40:00 EST, Height, 57, kg, 03/19/19 14:07:00 EST, Dry Weight Start Date: 04/30/19 Status: Ordered Combivent Respimat 20 mcg-100 mcg/inh inhalation aerosol 1 puffs, Inhalation, 4 times a day, PRN Wheezing/Shortness of Breath, # 1 each, 0 Refills, Maintenance, 06/12/19 8:06:00 EST, Aerosol, [facility], 1 puffs Inhalation 4 times a [...] Maintenance, 208:38:00 EST, Route to Pharmacy Electronically, [facility], 174, cm, 03/19/19 14:40:00 EST, Height, [...] 08/14/19 7:00:00 EDT, 07/10/19 14:55:00 EDT, Tablet, [facility], 174, cm, 05/26/19 14:06:00 EST, Height, 57, kg, 03/19/19 14:07:00 EST, Dry Weight Start Date: 07/10/19 Stop Date: 08/14/19 Status: Ordered metoprolol 50 mg oral tablet, extended release 50 mg, 1, tablet, By Mouth, Daily, do not crush or chew, # 30 tablet, Refills 2, Tot. Refills 2, Maintenance, 07/10/19 14:54:00 EDT, Route to Pharmacy Electronically, [facility], 174, cm, 05/26/19 14:06:00 EST, Height, [...] 04/20/19 8:38:00 EST, Route to Pharmacy Electronically, [facility],174, cm, 03/19/19 14:40:00 EST, Height, 57, kg, 12/... Start Date: 04/20/19 Status: Ordered Spiriva HandiHaler 18 mcg inhalation capsule 1 capsule = 18 mcg, Inhalation, Daily, use two inhalations of one capsule for each dose, # 30 capsule, 6 Refills, Maintenance, 07/10/19 14:54:00 EDT, [facility], 174, cm, 05/26/19 14:06:00 EST, Height, 57, kg, 03/19/19 14:07:00 EST, Dry Weight Start Date: 07/10/19 Stop Date: 02/05/20 Status: Ordered traZODone 50 mg oral tablet 100 mg, 2, tablet, By Mouth, Daily at bedtime, # 60 tablet, Refills 2, Tot. Refills 2, Maintenance,04/30/19 10:39:00 EST, Route to Pharmacy Electronically, [facility], 174, cm, 03/19/19 14:40:00 EST, Height, [...] 5 Refills, Maintenance, 07/10/19 14:54:00 EDT, Tablet, [facility], 174, cm, 05/26/19 14:06:00 EST, Height, [...]
--- OUTSIDE RECORDS SUMMARY | 2022-09-19 20:53 | XMS_ITS | Continuity of Care Document ---
Author Name Unknown Organization [facility] Trevor lt Address [address] [place] [address]- Care Team Providers Care Hospital Laboratory Technician Name Role Phone Aixa BERNABE, Mike Bennett Primary Care Physician En[place] [facility] [place] Date[place]s): 10/01/19 - 10/31/19 [facility] Adult [address] [place] [address]- [facility] Attending Physician: Eliza Gregg Admitting Physician: AdmEliza flores Referring Physician: Admtr, Eliza Allergies, Adverse Reactions, Alerts Substance Reaction Severity [...] 02/10/19 13:40:35 EDT, Route to Pharmacy Electronically, NDPDP_[id number], [facility] - [address] [place] [address] Start Date: 02/10/19 Stop Date: 06/10/19 Status: Ordered aspirin 81 mg oral tablet 1 tablet = 81 mg, By Mouth, Daily, PER DR TRISTAN, # 30 tablet, 5 Refills, Maintenance, 10/13/19 13:42:00 EDT, Tablet, [facility], 174, cm, 10/01/19 13:58:00 EDT, Height, 57, kg, 03/19/19 14:07:00 EST, Dry Weight Start Date: 10/13/19 Status: Ordered Combivent Respimat 20 mcg-100 mcg/inh inhalation aerosol 1 puffs, Inhalation, 4 times a day, PRN Wheezing/Shortness of Breath, # 1 each, 0 Refills, Maintenance, 06/12/19 8:06:00 EST, Aerosol, [facility], 1 puffs Inhalation 4 times a [...] Maintenance, 10/12/2012:42:00 EDT, Route to Pharmacy Electronically, [facility], 174, cm, 10/01/19 13:58:00 EDT, Height, [...] 12/28/19 14:37:00 EDT, 10/29/19 14:37:00 EDT, Tablet, [facility], 174, cm, 10/01/19 13:58:00 EDT, Height, 57, kg, 03/19/19 14:07:00 EST,... Start Date: 10/29/19 Stop Date: 12/28/19 Status: Ordered metoprolol 50 mg oral tablet, extended release 50 mg, 1, tablet, By Mouth, Daily, do not crush or chew, # 30 tablet, Refills 2, Tot. Refills 2, Maintenance, 10/14/19 8:46:00 EDT, Route to Pharmacy Electronically, [facility], 174, cm, 10/01/19 13:58:00 EDT, Height, [...] 10/13/19 13:42:00 EDT, Route to Pharmacy Electronically, [facility], 174, cm, 10/01/19 13:58:00 EDT, Height, 57, kg, 12... Start Date: 10/13/19 Status: Ordered Spiriva HandiHaler 18 mcg inhalation capsule 1 capsule = 18 mcg, Inhalation, Daily, use two inhalations of one capsule for each dose, # 30 capsule, 6 Refills, Maintenance, 07/10/19 14:54:00 EDT, [facility], 174, cm, 05/26/19 14:06:00 EST, Height, 57, kg, 03/19/19 14:07:00 EST, Dry Weight Start Date: 07/10/19 Stop Date: 02/05/20 Status: Ordered traZODone 50 mg oral tablet 100 mg, 2, tablet, By Mouth, Daily at bedtime, # 60 tablet, Refills 2, Tot. Refills 2, Maintenance,10/14/19 8:46:00 EDT, Route to Pharmacy Electronically, [facility], 174, cm, 10/01/19 13:58:00 EDT, Height, 57, kg, 03/19/19 14:07:00 EST, .Benjamin Start Date: 10/14/19 Status: Ordered Tylenol Extra [...] 5 Refills, Maintenance, 07/10/19 14:54:00 EDT, Tablet, [facility], 174, cm, 05/26/19 14:06:00 EST, Height, [...]
--- OUTSIDE RECORDS SUMMARY | 2022-09-19 20:53 | XMS_ITS | Continuity of Care Document ---
Author Name Unknown Organization [facility] Trevor Address [address] [place] [id number]- Care Team Providers Care Supply Person Name Role Phone Mike Kruse MD Primary Care Physician Encounter [facility] Date(s): 07/15/21 - 07/22/21 [facility] Adult [address] [place] [id number]- Encounter Diagnosis Emphysema of lung(Discharge Diagnosis) - 07/15/21 Gastroesophageal reflux(Discharge Diagnosis) - 07/15/21 HTN (hypertension)(Discharge Diagnosis) - 07/15/21 Hypercholesterolemia(Discharge Diagnosis) - 07/15/21 Insomnia(Discharge Diagnosis) - 07/15/21 Anxiety(Discharge Diagnosis) - 07/15/21 PVD (peripheral vascular disease)(Discharge Diagnosis) - 07/15/21 Tobacco abuse(Discharge Diagnosis) - 07/15/21 Attending Physician: Mike Kruse MD Allergies, Adverse Reactions, Alerts Substance Reaction [...] hours, PRN for wheezing, # 60 each, 11 Refills, Maintenance, 07/15/21 15:49:00 EDT, Solution, [facility], Partial fill upon patient request if the prescription is for a schedule II opioid drug., 180, cm, 04... Start Date: 07/15/21 Status: Ordered amLODIPine 5 mg oral tablet 5 mg, 1, tablet, By Mouth, Daily, # 90 tablet, Refills 1, Tot. Refills 1, Soft Stop, 04/12/21 8:59:00 EST, Route to Pharmacy Electronically, [facility], 174, cm, 03/22/21 13:58:00 EST, Height Start Date: 04/12/21 Status: Ordered Aspirin Low Dose 81 mg oral delayed release tablet 1 tablet, By Mouth, Daily, # 30 tablet, 11 Refills, [facility], 180, cm, 05/03/21 9:32:00EST, Height, 77, kg, 04/20/21 15:47:00 EST, Dry Weight Start Date: 05/06/21 Status: Ordered fluticasone 50 mcg/inh nasal spray See Instructions, USE 1 SPRAY IN EACH NOSTRIL TWICE A DAY, # 16 Gm, 5 Refills, [facility], 30, USE 1 SPRAY IN EACH NOSTRIL TWICE A DAY, 180, cm, 05/03/21 9:32:00 EST, Height, 77, kg, 04/20/21 15:47:00 EST, Dry Weight Start Date: 05/10/21 Status: Ordered losartan 100 mg oral tablet 1 tablet, By Mouth, Daily, # 30 tablet, 5 Refills, Maintenance, 07/05/21 11:52:00 EDT, [facility], 180, cm, 06/27/21 12:02:00 EDT, Height, 77, kg, 04/20/21 15:47:00 EST, Dry Weight Start Date: 07/05/21 Status: Ordered metoprolol 50 mg oral tablet, extended release 50 mg, 1, tablet, By Mouth, Daily, do not crush or chew, # 30 tablet, Refills 11, Tot. Refills 11, Maintenance, 07/12/20 14:44:00 EDT, Route to Pharmacy Electronically, [facility], 174, cm,07/12/20 14:32:00 EDT, Height, 57, kg, 03/19/19 14:... Start Date: 07/12/20 Status: Ordered montelukast 10 mg oral tablet 1, tablet, By Mouth, Daily at bedtime, # 30 tablet, Refills 5, Route to Pharmacy Electronically, [facility], 174, cm, 03/22/21 13:58:00 EST, Height Start Date: 04/07/21 Status: Ordered Nebulizer/Compressor See Instructions, # 1 each, Maintenance, Use up to qid Dx. copd Include tubing and mouthpiece, 04/29/21 14:42:00 EST, Supply Start Date: 04/29/21 Status: Ordered omeprazole 20 mg oral delayed release tablet 1 tablet = 20 mg, By Mouth, Daily, # 30 tablet, 11 Refills, Maintenance, 07/15/21 15:48:00 EDT, CR Tablet, [facility], Partial fill upon patient request if the prescription is for a schedule II opioid drug., 180, cm, 07/15/21 15:35:00 EDT, H... Start Date: 07/15/21 Stop Date: 07/10/22 Status: Ordered pravastatin 40 mg oral tablet 1 tablet = 40 mg, By Mouth, Daily, # 90 tablet, 1 Refills, Maintenance, 05/10/21 10:26:00 EST, Tablet, [facility], 180, cm, 05/03/21 9:32:00 EST, Height, 77, kg, 04/20/21 15:47:00 EST, Dry Weight Start Date: 05/10/21 Status: Ordered ProAir HFA 90 mcg/inh inhalation aerosol with adapter 2, puffs, Inhalation, Every 6 hours, PRN, # 8.5 Gm, Refills 6, Route to Pharmacy Electronically, NCPDP_[id number], [facility], 174, cm, 04/14/21 14:32:00 EST, Height Start Date: 04/18/21 Status: Ordered Spiriva Respimat 1.25 mcg/inh inhalation aerosol 2 puffs, Inhalation, Daily, # 4 Gm, 5 Refills, [facility], 180, cm, 05/03/21 9:32:00 EST,Height, 77, kg, 04/20/21 15:47:00 EST, Dry Weight Start Date: 05/05/21 Status: Ordered Symbicort 160mcg/4.5mcg Inhaler 2, puffs, Inhalation, 2 times a day, # 10.2 Gm, Refills 10, Route to Pharmacy Electronically, NCPDP_[id number], [facility], 180, cm, 05/03/21 9:32:00 EST, Height, 77, kg, 04/20/21 15:47:00 EST, Dry Weight Start Date: 05/06/21 Status: Ordered tamsulosin 0.4 mg oral capsule 1, capsule, By Mouth, Daily, # 30 capsule, Refills 5, Route to Pharmacy Electronically, [facility], 174, cm, 03/15/21 10:16:00 EST, Height, 57, kg, 03/19/19 14:07:00 EST, Dry Weight Start Date: 03/15/21 Status: Ordered traZODone 50 mg oral tablet 100 mg, 2, tablet, By Mouth, Daily at bedtime, # 60 tablet, Refills 11, Tot. Refills 11, Maintenance, 07/12/20 14:43:00 EDT, Route to Pharmacy Electronically, [facility], 174, cm, 07/12/20 14:32:00 EDT, Height, 57, kg, 03/19/19 14:07:00 EST,... Start Date: 07/12/20 Status: Ordered venlafaxine 37.5 mg oral capsule, extended release 37.5 mg, 1, capsule, By Mouth, Daily, # 30 capsule, Refills 0, Tot. Refills 0, Maintenance, 06/27/21 13:03:00 EDT, Route to Pharmacy Electronically, [facility], Partial fill upon patient request if the prescription is for a schedule II opioi... Start Date: 06/27/21 Status: Ordered Problem List Condition Effective Dates [...] Diagnosis Diagnosis Type Effective Dates Health Status Clinical Service Informant Emphysema of lung Discharge Diagnosis 07/15/21 Gastroesophageal reflux Discharge Diagnosis 07/15/21 HTN (hypertension) Discharge Diagnosis 07/15/21 Hypercholesterolemia Discharge Diagnosis 07/15/21 Insomnia Discharge Diagnosis 07/15/21 Anxiety Discharge Diagnosis 07/15/21 PVD (peripheral vascular disease) Discharge Diagnosis 07/15/21 Tobacco abuse Discharge Diagnosis 07/15/21 Vital Signs Most recent to oldest [Reference Range]: 1 Height 180 cm (07/15/21 3:35 PM) Weight 68.2 kg (07/15/21 3:35 PM) Oxygen Saturation [94-100 %] 95 % (07/15/21 3:35 PM) Pulse Rate [55-90 bpm] 69 bpm (07/15/21 3:35 PM) Body Mass Index [18.5-24.99] 21.05 (07/15/21 3:35 PM) Blood Pressure [90-138/55-84 mm Hg] 136/ 74mm Hg (07/15/21 3:35 PM) Mode of Delivery (Oxygen) Room air (07/15/21 3:35 PM) Blood pressure sites Arm, left (07/15/21 3:35 PM) Weight Obtained Via Standing scale (07/15/21 3:35 PM) Social History Social History Type Response Smoking Status 5-9 cigarettes (betw een 1/4 to 1/2 pack)/day in last 30 days entered on: 05/26/19 Sex
--- OUTSIDE RECORDS SUMMARY | 2022-09-19 20:53 | XMS_ITS | Continuity of Care Document ---
Author Name Unknown Organization [facility] Trevor lt Address [address] [place] [id number]- Care Team Providers Care Clinical Biochemist Name Role Phone Mike Kruse MD Primary Care Physician Encounter [facility] Date(s): 06/22/21 - 07/22/21 [facility] [address] [place] [address]- Allergies, Adverse Reactions, Alerts Substance Reaction Severity [...] 11 Refills, Maintenance, 07/15/21 15:49:00 EDT, Solution, [facility], Partial fill upon patient request if the prescription is for a schedule II opioid drug., 180, cm, 04... Start Date: 07/15/21 Status: Ordered amLODIPine 5 mg oral tablet 5 mg, 1, tablet, By Mouth, Daily, # 90 tablet, Refills 1, Tot. Refills 1, Soft Stop, 04/12/21 8:59:00 EST, Route to Pharmacy Electronically, [facility], 174, cm, 03/22/21 13:58:00 EST, Height Start Date: 04/12/21 Status: Ordered Aspirin Low Dose 81 mg oral delayed release tablet 1 tablet, By Mouth, Daily, # 30 tablet, 11 Refills, [facility], 180, cm, 05/03/21 9:32:00EST, Height, 77, kg, 04/20/21 15:47:00 EST, Dry Weight Start Date: 05/06/21 Status: Ordered fluticasone 50 mcg/inh nasal spray See Instructions, USE 1 SPRAY IN EACH NOSTRIL TWICE A DAY, # 16 Gm, 5 Refills, [facility], 30, USE 1 SPRAY IN EACH NOSTRIL TWICE A DAY, 180, cm, 05/03/21 9:32:00 EST, Height, 77, kg, 04/20/21 15:47:00 EST, Dry Weight Start Date: 05/10/21 Status: Ordered losartan 100 mg oral tablet 1 tablet, By Mouth, Daily, # 30 tablet, 5 Refills, Maintenance, 07/05/21 11:52:00 EDT, [facility], 180, cm, 06/27/21 12:02:00 EDT, Height, 77, kg, 04/20/21 15:47:00 EST, Dry Weight Start Date: 07/05/21 Status: Ordered metoprolol 50 mg oral tablet, extended release 50 mg, 1, tablet, By Mouth, Daily, do not crush or chew, # 30 tablet, Refills 11, Tot. Refills 11, Maintenance, 07/12/20 14:44:00 EDT, Route to Pharmacy Electronically, [facility], 174, cm,07/12/20 14:32:00 EDT, Height, 57, kg, 03/19/19 14:... Start Date: 07/12/20 Status: Ordered montelukast 10 mg oral tablet 1, tablet, By Mouth, Daily at bedtime, # 30 tablet, Refills 5, Route to Pharmacy Electronically, [facility], 174, cm, 03/22/21 13:58:00 EST, Height Start Date: 04/07/21 Status: Ordered Nebulizer/Compressor See Instructions, # 1 each, Maintenance, Use up to qid Dx. copd Include tubing and mouthpiece, 04/29/21 14:42:00 EST, Supply Start Date: 04/29/21 Status: Ordered omeprazole 20 mg oral delayed release tablet 1 tablet = 20 mg, By Mouth, Daily, # 30 tablet, 11 Refills, Maintenance, 07/15/21 15:48:00 EDT, CR Tablet, [facility], Partial fill upon patient request if the prescription is for a schedule II opioid drug., 180, cm, 07/15/21 15:35:00 EDT, H... Start Date: 07/15/21 Stop Date: 07/10/22 Status: Ordered pravastatin 40 mg oral tablet 1 tablet = 40 mg, By Mouth, Daily, # 90 tablet, 1 Refills, Maintenance, 05/10/21 10:26:00 EST, Tablet, [facility], 180, cm, 05/03/21 9:32:00 EST, Height, 77, kg, 04/20/21 15:47:00 EST, Dry Weight Start Date: 05/10/21 Status: Ordered ProAir HFA 90 mcg/inh inhalation aerosol with adapter 2, puffs, Inhalation, Every 6 hours, PRN, # 8.5 Gm, Refills 6, Route to Pharmacy Electronically, [id number], [facility], 174, cm, 04/14/21 14:32:00 EST, Height Start Date: 04/18/21 Status: Ordered Spiriva Respimat 1.25 mcg/inh inhalation aerosol 2 puffs, Inhalation, Daily, # 4 Gm, 5 Refills, [facility], 180, cm, 05/03/21 9:32:00 EST,Height, 77, kg, 04/20/21 15:47:00 EST, Dry Weight Start Date: 05/05/21 Status: Ordered Symbicort 160mcg/4.5mcg Inhaler 2, puffs, Inhalation, 2 times a day, # 10.2 Gm, Refills 10, Route to Pharmacy Electronically, [id number], [facility], 180, cm, 05/03/21 9:32:00 EST, Height, 77, kg, 04/20/21 15:47:00 EST, Dry Weight Start Date: 05/06/21 Status: Ordered tamsulosin 0.4 mg oral capsule 1, capsule, By Mouth, Daily, # 30 capsule, Refills 5, Route to Pharmacy Electronically, [facility], 174, cm, 03/15/21 10:16:00 EST, Height, 57, kg, 03/19/19 14:07:00 EST, Dry Weight Start Date: 03/15/21 Status: Ordered traZODone 50 mg oral tablet 100 mg, 2, tablet, By Mouth, Daily at bedtime, # 60 tablet, Refills 11, Tot. Refills 11, Maintenance, 07/12/20 14:43:00 EDT, Route to Pharmacy Electronically, [facility], 174, cm, 07/12/20 14:32:00 EDT, Height, 57, kg, 03/19/19 14:07:00 EST,... Start Date: 07/12/20 Status: Ordered venlafaxine 37.5 mg oral capsule, extended release 37.5 mg, 1, capsule, By Mouth, Daily, # 30 capsule, Refills 0, Tot. Refills 0, Maintenance, 06/27/21 13:03:00 EDT, Route to Pharmacy Electronically, [facility], Partial fill upon patient request if the [...]
--- OUTSIDE RECORDS SUMMARY | 2022-09-19 20:53 | XMS_ITS | Continuity of Care Document ---
Author Name Unknown Organization [facility] Trevor lt Address [address] [place] [address]- Care Team Providers Care Chronic Manager Name Role Phone Mike Kruse MD Primary Care Physician Encounter [facility] Date(s): 11/18/21 - 12/18/21 [facility] [address] [place] [address]- Allergies, Adverse Reactions, Alerts Substance Reaction Severity [...] 5 Refills, Maintenance, 10/28/21 14:18:00 EDT, Solution, [facility]/pharmacy #1230, 165, cm, 10/28/21 4:51:00 EDT, Height, 60.5, kg, 10/26/21 13:16:00 EDT, Dry Weight Start Date: 10/28/21 Status: Ordered amLODIPine 5 mg oral tablet 5 mg, 1, tablet, By Mouth, Daily, # 90 tablet, Refills 1, Tot. Refills 1, Soft Stop, 10/19/21 9:10:00 EDT, Route to Pharmacy Electronically, [facility]/pharmacy #1230, 180, cm, 09/26/21 10:49:00 EDT, Height, 77, kg, 04/20/21 15:47:00 EST, Dry Weight Start Date: 10/19/21 Status: Ordered Aspirin Low Dose 81 mg oral delayed release tablet 1 tablet, By Mouth, Daily, # 30 tablet, 11 Refills, 10/19/21 9:10:00 EDT, [facility]/pharmacy #1230, 180, cm, 09/26/21 10:49:00 EDT, Height, [...] 16 Gm, 5 Refills, 10/19/21 9:10:00 EDT, [facility]/pharmacy #1230, 30, USE 1 SPRAY IN EACH NOSTRIL TWICE A DAY, 180, cm, 09/26/21 10:49:00 EDT, Height, 77, kg, 04/20/21 15:47:00 EST, Dry Weight Start Date: 10/19/21 Status: Ordered guaiFENesin 400 mg oral tablet 1 tablet = 400 mg, By Mouth, 4 times a day, # 120 tablet, 5 Refills, Maintenance, 10/28/21 14:19:00EDT, Tablet, [facility]/pharmacy #1230, 165, cm, 10/28/21 4:51:00 EDT, Height, [...] tablet, 5 Refills, Maintenance, 10/19/21 9:10:00 EDT, [facility]/pharmacy #1230, 180, cm, 09/26/21 10:49:00 EDT, Height, 77, kg, 04/20/21 15:47:00 EST, Dry Weight Start Date: 10/19/21 Status: Ordered magnesium oxide 400 mg oral tablet 1 tablet, By Mouth, Daily, # 30 tablet, 6 Refills, Maintenance, 10/19/21 9:10:00 EDT, [facility]/pharmacy #1230, 180, cm, 09/26/21 10:49:00 EDT, Height, 77, kg, 04/20/21 15:47:00 EST, Dry Weight Start Date: 10/19/21 Stop Date: 10/19/21 Status: Ordered Metoprolol Succinate ER 50 mg oral tablet, extended release 1 tablet, By Mouth, Daily, INSTR:DO NOT CRUSH OR CHEW, # 30 tablet, 5 Refills, 10/19/21 9:10:00 EDT, [facility]/pharmacy #1230, 180, cm, 09/26/21 10:49:00 EDT, Height, 77, kg, 04/20/21 15:47:00 EST, Dry Weight Start Date: 10/19/21 Status: Ordered MiraLax oral powder for reconstitution = 17 Gm, By Mouth, 2 times a day, dissolve in water before taking, # 527 Gm, 11 Refills, Maintenance, 10/19/21 9:10:00 EDT, REC Powder, [facility]/pharmacy #1230, Partial fill upon patient request if the prescription is for a schedule II opioid drug., 17 Gm... Start Date: 10/19/21 Status: Ordered montelukast 10 mg oral tablet 1, tablet, By Mouth, Daily at bedtime, # 30 tablet, Refills 5, Tot. Refills 5, 10/19/21 9:10:00 EDT, Route to Pharmacy Electronically, [facility]/pharmacy #1230, 180, cm, 09/26/21 10:49:00 EDT, Height, 77, kg, 04/20/21 15:47:00 EST, Dry Weight Start Date: 10/19/21 Status: Ordered omeprazole 20 mg oral delayed release tablet 1 tablet = 20 mg, By Mouth, Daily, # 30 tablet, 11 Refills, Maintenance, 07/10/22 15:48:00 EDT, CR Tablet, [facility]/pharmacy #1230, Partial fill upon patient request if the prescription is for a schedule II opioid drug., 180, cm, 09/26/21 10:49:00 EDT, Hei... Start Date: 07/10/22 Stop Date: 07/05/23 Status: Ordered Plavix 75 mg oral tablet 75 mg, 1, tablet, By Mouth, Daily, # 90 tablet, Refills 1, Tot. Refills 1, Maintenance, 11/18/21 16:53:00 EDT, Route to Pharmacy Electronically, [facility]/pharmacy #1230, Partial fill upon patient request if the prescription is for a schedule II opioid drug... Start Date: 11/18/21 Status: Ordered pravastatin 40 mg oral tablet 1 tablet = 40 mg, By Mouth, Daily, # 90 tablet, 1 Refills, Maintenance, 10/19/21 9:10:00 EDT, Tablet, [facility]/pharmacy #1230, 180, cm, 09/26/21 10:49:00 EDT, Height, [...] 0 Refills, Maintenance, 12/13/21 12:37:00 EDT, Tablet, [facility]... Start Date: 12/13/21 Status: Ordered ProAir HFA [...] 12/13/21 12:40:00 EDT, Route to Pharmacy Electronically, [id number], [facility] 3,162, cm, 12/13/21 4:46:00 EDT, Height, 60.3, kg, 08... Start Date: 12/13/21 Status: Ordered riboflavin 400 mg oral capsule 1 capsule = 400 mg, By Mouth, Daily, # 30 capsule, 5 Refills, Maintenance, 10/19/21 9:10:00 EDT, [facility]/pharmacy #1230, Partial fill upon patient request if the prescription is for a schedule II opioid drug., 180, cm, 09/26/21 10:49:00 EDT, Height, 77, k... Start Date: 10/19/21 Status: Ordered SEROquel 25 mg oral tablet 25 mg, 1, tablet, By Mouth, Daily at bedtime, # 30 tablet, Refills 5, Tot. Refills 5, Maintenance, 10/28/21 14:23:00 EDT, Route to Pharmacy Electronically, [facility]/pharmacy #1230, 165, cm, 10/28/21 4:51:00 EDT, Height, 60.5, kg, 10/26/21 13:16:00 EDT, Dry... Start Date: 10/28/21 Status: Ordered Spiriva Respimat 1.25 mcg/inh inhalation aerosol 2 puffs, Inhalation, Daily, # 4 Gm, 5 Refills, 10/19/21 9:10:00 EDT, [facility]/pharmacy #1230, 180, cm, 09/26/21 10:49:00 EDT, Height, 77, kg, 04/20/21 15:47:00 EST, Dry Weight Start Date: 10/19/21 Status: Ordered Symbicort 160mcg/4.5mcg Inhaler 2, puffs, Inhalation, 2 times a day, # 10.2 Gm, Refills 10, Tot. Refills 10, 10/19/21 9:10:00 EDT, Route to Pharmacy Electronically, [id number], [facility]/pharmacy #1230, 180, cm,09/26/21 10:49:00 EDT, Height, 77, kg, 04/20/21 15:... Start Date: 10/19/21 Status: Ordered tamsulosin 0.4 mg oral capsule 1, capsule, By Mouth, Daily, # 30 capsule, Refills 4, Tot. Refills 4, Maintenance, 10/19/21 9:10:00EDT, Route to Pharmacy Electronically, [facility]/pharmacy #1230, 180, cm, 09/26/21 10:49:00 EDT, Height, 77, kg, 04/20/21 15:47:00 EST, Dry Weight Start Date: 10/19/21 Status: Ordered venlafaxine 37.5 mg oral capsule, extended release 37.5 mg, 1, capsule, By Mouth, Daily, # 30 capsule, Refills 1, Tot. Refills 1, Maintenance, 10/19/21 9:10:00 EDT, [facility] fill upon patient request if [...] Personnel Name: Aixa BERNABE, Mike Bennett Address: [address] [place] [id number]
--- OUTSIDE RECORDS SUMMARY | 2022-09-19 20:53 | XMS_ITS | Continuity of Care Document ---
Author Name Unknown Organization [facility] Trevor lt Address [address] [place] [address]- Care Team Providers Care Press Bucker Name Role Phone Mike Tritsan MD Primary Care Physician [phone] Encounter [facility] Date(s): 07/15/19 - 07/22/19 [facility] Adult [address] [place] [address]- [facility] Encounter Diagnosis Ear pain, right(Discharge Diagnosis) - 07/15/19 Vertigo(Discharge Diagnosis) - 07/15/19 Attending Physician: Not on Staff, Attending MD [...] 02/10/19 13:40:35 EDT, Route to Pharmacy Electronically, [id number], [facility] - [address] [place] [address] Start Date: 02/10/19 Stop Date: 06/10/19 Status: Ordered aspirin 81 mg oral tablet 1 tablet = 81 mg, By Mouth, Daily, PER DR TRISTAN, # 30 tablet, 5 Refills, Maintenance, 04/30/19 10:28:00 EST, Tablet, [facility], 174, cm, 03/19/19 14:40:00 EST, Height, 57, kg, 03/19/19 14:07:00 EST, Dry Weight Start Date: 04/30/19 Status: Ordered Combivent Respimat 20 mcg-100 mcg/inh inhalation aerosol 1 puffs, Inhalation, 4 times a day, PRN Wheezing/Shortness of Breath, # 1 each, 0 Refills, Maintenance, 06/12/19 8:06:00 EST, Aerosol, [facility], 1 puffs Inhalation 4 times a [...] Maintenance, 208:38:00 EST, Route to Pharmacy Electronically, [facility], 174, cm, 03/19/19 14:40:00 EST, Height, [...] 08/14/19 7:00:00 EDT, 07/10/19 14:55:00 EDT, Tablet, [facility], 174, cm, 05/26/19 14:06:00 EST, Height, 57, kg, 03/19/19 14:07:00 EST, Dry Weight Start Date: 07/10/19 Stop Date: 08/14/19 Status: Ordered metoprolol 50 mg oral tablet, extended release 50 mg, 1, tablet, By Mouth, Daily, do not crush or chew, # 30 tablet, Refills 2, Tot. Refills 2, Maintenance, 07/10/19 14:54:00 EDT, Route to Pharmacy Electronically, [facility], 174, cm, 05/26/19 14:06:00 EST, Height, [...] 04/20/19 8:38:00 EST, Route to Pharmacy Electronically, [facility],174, cm, 03/19/19 14:40:00 EST, Height, 57, kg, 12/... Start Date: 04/20/19 Status: Ordered Spiriva HandiHaler 18 mcg inhalation capsule 1 capsule = 18 mcg, Inhalation, Daily, use two inhalations of one capsule for each dose, # 30 capsule, 6 Refills, Maintenance, 07/10/19 14:54:00 EDT, [facility], 174, cm, 05/26/19 14:06:00 EST, Height, 57, kg, 03/19/19 14:07:00 EST, Dry Weight Start Date: 07/10/19 Stop Date: 02/05/20 Status: Ordered traZODone 50 mg oral tablet 100 mg, 2, tablet, By Mouth, Daily at bedtime, # 60 tablet, Refills 2, Tot. Refills 2, Maintenance,04/30/19 10:39:00 EST, Route to Pharmacy Electronically, [facility], 174, cm, 03/19/19 14:40:00 EST, Height, [...] 5 Refills, Maintenance, 07/10/19 14:54:00 EDT, Tablet, [facility], 174, cm, 05/26/19 14:06:00 EST, Height, [...] Dates Health Status Cl inical Service Informant Ear pain, right Discharge Diagnosis 07/15/19 Vertigo Discharge Diagnosis 07/15/19 Social History Social History Type Response Smoking Status 5-9 cigarettes (betw een 1/4 to 1/2 pack)/day in last 30 days entered on: 05/26/19 Sex
--- OUTSIDE RECORDS SUMMARY | 2022-09-19 20:53 | XMS_ITS | Continuity of Care Document ---
Author Name Unknown Organization [facility] [place] Trevor lt Address [address] [place] [address]- Care Team Providers Care Rotary Swaging Machine Operator Name Role Phone Mike Kruse MD Primary Care Physician [phone] [place] [facility] 11/01[place]21 - 12/15/21 [facility] [place] Adult [address] [place] [address]- Attending Physician: Mike Kruse MD Allergies, Adverse [...] 5 Refills, Maintenance, 10/28/21 14:18:00 EDT, Solution, [facility]/pharmacy #1230, 165, cm, 10/28/21 4:51:00 EDT, Height, 60.5, kg, 10/26/21 13:16:00 EDT, Dry Weight Start Date: 10/28/21 Status: Ordered amLODIPine 5 mg oral tablet 5 mg, 1, tablet, By Mouth, Daily, # 90 tablet, Refills 1, Tot. Refills 1, Soft Stop, 10/19/21 9:10:00 EDT, Route to Pharmacy Electronically, [facility]/pharmacy #1230, 180, cm, 09/26/21 10:49:00 EDT, Height, 77, kg, 04/20/21 15:47:00 EST, Dry Weight Start Date: 10/19/21 Status: Ordered Aspirin Low Dose 81 mg oral delayed release tablet 1 tablet, By Mouth, Daily, # 30 tablet, 11 Refills, 10/19/21 9:10:00 EDT, [facility]/pharmacy #1230, 180, cm, 09/26/21 10:49:00 EDT, Height, 77, kg, 04/20/21 15:47:00 EST, Dry Weight Start Date: 10/19/21 Status: Ordered azithromycin 500 mg oral tablet = 500 mg, By Mouth, Daily, for 3 days, # 3 tablet, 0 Refills, Acute 12/16/21 12:37:00 EDT, 12/14/2211:37:00 EDT, Tablet, [facility], Partial fill upon patient request if the prescription is for a schedule II opioid drug., 162, cm, 12/13... Start Date: 12/13/21 Stop Date: 12/16/21 Status: Ordered Breo Ellipta 200 mcg-25 mcg/inh [...] 16 Gm, 5 Refills, 10/19/21 9:10:00 EDT, [facility]/pharmacy #1230, 30, USE 1 SPRAY IN EACH NOSTRIL TWICE A DAY, 180, cm, 09/26/21 10:49:00 EDT, Height, 77, kg, 04/20/21 15:47:00 EST, Dry Weight Start Date: 10/19/21 Status: Ordered guaiFENesin 400 mg oral tablet 1 tablet = 400 mg, By Mouth, 4 times a day, # 120 tablet, 5 Refills, Maintenance, 10/28/21 14:19:00EDT, Tablet, [facility]/pharmacy #1230, 165, cm, 10/28/21 4:51:00 EDT, [...] tablet, 5 Refills, Maintenance, 10/19/21 9:10:00 EDT, [facility] #1230, 180, cm, 09/26/21 10:49:00 EDT, Height, 77, kg, 04/20/21 15:47:00 EST, Dry Weight Start Date: 10/19/21 Status: Ordered magnesium oxide 400 mg oral tablet 1 tablet, By Mouth, Daily, # 30 tablet, 6 Refills, Maintenance, 10/19/21 9:10:00 EDT, [facility]/pharmacy #1230, 180, cm, 09/26/21 10:49:00 EDT, Height, 77, kg, 04/20/21 15:47:00 EST, Dry Weight Start Date: 10/19/21 Stop Date: 10/19/21 Status: Ordered Metoprolol Succinate ER 50 mg oral tablet, extended release 1 tablet, By Mouth, Daily, INSTR:DO NOT CRUSH OR CHEW, # 30 tablet, 5 Refills, 10/19/21 9:10:00 EDT, [facility]/pharmacy #1230, 180, cm, 09/26/21 10:49:00 EDT, Height, 77, kg, 04/20/21 15:47:00 EST, Dry Weight Start Date: 10/19/21 Status: Ordered MiraLax oral powder for reconstitution = 17 Gm, By Mouth, 2 times a day, dissolve in water before taking, # 527 Gm, 11 Refills, Maintenance, 10/19/21 9:10:00 EDT, REC Powder, [facility]/pharmacy #1230, Partial fill upon patient request if the prescription is for a schedule II opioid drug., 17 Gm... Start Date: 10/19/21 Status: Ordered montelukast 10 mg oral tablet 1, tablet, By Mouth, Daily at bedtime, # 30 tablet, Refills 5, Tot. Refills 5, 10/19/21 9:10:00 EDT, Route to Pharmacy Electronically, [facility]/pharmacy #1230, 180, cm, 09/26/21 10:49:00 EDT, Height, 77, kg, 04/20/21 15:47:00 EST, Dry Weight Start Date: 10/19/21 Status: Ordered omeprazole 20 mg oral delayed release tablet 1 tablet = 20 mg, By Mouth, Daily, # 30 tablet, 11 Refills, Maintenance, 07/10/22 15:48:00 EDT, CR Tablet, [facility]/pharmacy #1230, Partial fill upon patient request if the prescription is for a schedule II opioid drug., 180, cm, 09/26/21 10:49:00 EDT, Hei... Start Date: 07/10/22 Stop Date: 07/05/23 Status: Ordered Plavix 75 mg oral tablet 75 mg, 1, tablet, By Mouth, Daily, # 90 tablet, Refills 1, Tot. Refills 1, Maintenance, 11/18/21 16:53:00 EDT, [facility] Partial fill upon patient request if the prescription is for a schedule II opioid drug... Start Date: 11/18/21 Status: Ordered pravastatin 40 mg oral tablet 1 tablet = 40 mg, By Mouth, Daily, # 90 tablet, 1 Refills, Maintenance, 10/19/21 9:10:00 EDT, Tablet, [facility]/pharmacy #1230, 180, cm, 09/26/21 10:49:00 EDT, [...] 0 Refills, Maintenance, 12/13/21 12:37:00 EDT, Tablet, [facility]... Start Date: 12/13/21 Status: Ordered ProAir HFA [...] 12/13/21 12:40:00 EDT, Route to Pharmacy Electronically, [id number], [facility] 3,162, cm, 12/13/21 4:46:00 EDT, Height, 60.3, kg, 08... Start Date: 12/13/21 Status: Ordered riboflavin 400 mg oral capsule 1 capsule = 400 mg, By Mouth, Daily, # 30 capsule, 5 Refills, Maintenance, 10/19/21 9:10:00 EDT, [facility]/pharmacy #1230, Partial fill upon patient request if the prescription is for a schedule II opioid drug., 180, cm, 09/26/21 10:49:00 EDT, Height, 77, k... Start Date: 10/19/21 Status: Ordered SEROquel 25 mg oral tablet 25 mg, 1, tablet, By Mouth, Daily at bedtime, # 30 tablet, Refills 5, Tot. Refills 5, Maintenance, 10/28/21 14:23:00 EDT, [facility] 165, cm, 10/28/21 4:51:00 EDT, Height, 60.5, kg, 10/26/21 13:16:00 EDT, Dry... Start Date: 10/28/21 Status: Ordered Spiriva Respimat 1.25 mcg/inh inhalation aerosol 2 puffs, Inhalation, Daily, # 4 Gm, 5 Refills, 10/19/21 9:10:00 EDT, [facility], cm, 09/26/21 10:49:00 EDT, Height, 77, kg, 04/20/21 15:47:00 EST, Dry Weight Start Date: 10/19/21 Status: Ordered Symbicort 160mcg/4.5mcg Inhaler 2, puffs, Inhalation, 2 times a day, # 10.2 Gm, Refills 10, Tot. Refills 10, 10/19/21 9:10:00 EDT, Route to Pharmacy Electronically, [id number], [facility]/pharmacy #1230, 180, cm,09/26/21 10:49:00 EDT, Height, 77, kg, 04/20/21 15:... Start Date: 10/19/21 Status: Ordered tamsulosin 0.4 mg oral capsule 1, capsule, By Mouth, Daily, # 30 capsule, Refills 4, Tot. Refills 4, Maintenance, 10/19/21 9:10:00EDT, Route to Pharmacy Electronically, [facility]/pharmacy #1230, 180, cm, 09/26/21 10:49:00 EDT, Height, 77, kg, 04/20/21 15:47:00 EST, Dry Weight Start Date: 10/19/21 Status: Ordered venlafaxine 37.5 mg oral capsule, extended release 37.5 mg, 1, capsule, By Mouth, Daily, # 30 capsule, Refills 1, Tot. Refills 1, Maintenance, 10/19/21 9:10:00 EDT, Route to Pharmacy Electronically, [facility]/pharmacy #1230, Partial fill upon patient request [...] on: 09/26/21 Sex Care Team Personnel Name: Mike Kruse MD Address: [address] [place] [id number]
--- OUTSIDE RECORDS SUMMARY | 2022-09-19 20:53 | XMS_ITS | Continuity of Care Document ---
Author Name Unknown Organization [facility] Trevor lt Address [address] [place] [address]- Care Team Providers Care Referral Rn Name Role Phone Aixa BERNABE, Mike Bennett Primary Care Physician [phone] Encounter [facility] Date(s): 06/07/21 - 07/07/21 [facility] Adult [address] [place] [address]- Allergies, Adverse Reactions, Alerts Substance Reaction Severity [...] hours, PRN for wheezing, # 60 each, 2 Refills, Maintenance, 06/09/21 16:40:00 EST, Solution, [facility], Partial fill upon patient request if the prescription is for a schedule II opioid drug., 180, cm, .. Start Date: 06/09/21 Status: Ordered amLODIPine 5 mg oral tablet 5 mg, 1, tablet, By Mouth, Daily, # 90 tablet, Refills 1, Tot. Refills 1, Soft Stop, 04/12/21 8:59:00 EST, Route to Pharmacy Electronically, [facility], 174, cm, 03/22/21 13:58:00 EST, Height Start Date: 04/12/21 Status: Ordered Aspirin Low Dose 81 mg oral delayed release tablet 1 tablet, By Mouth, Daily, # 30 tablet, 11 Refills, [facility], 180, cm, 05/03/21 9:32:00EST, Height, 77, kg, 04/20/21 15:47:00 EST, Dry Weight Start Date: 05/06/21 Status: Ordered fluticasone 50 mcg/inh nasal spray See Instructions, USE 1 SPRAY IN EACH NOSTRIL TWICE A DAY, # 16 Gm, 5 Refills, [facility], 30, USE 1 SPRAY IN EACH NOSTRIL TWICE A DAY, 180, cm, 05/03/21 9:32:00 EST, Height, 77, kg, 04/20/21 15:47:00 EST, Dry Weight Start Date: 05/10/21 Status: Ordered losartan 100 mg oral tablet 1 tablet, By Mouth, Daily, # 30 tablet, 5 Refills, Maintenance, 07/05/21 11:52:00 EDT, [facility], 180, cm, 06/27/21 12:02:00 EDT, Height, 77, kg, 04/20/21 15:47:00 EST, Dry Weight Start Date: 07/05/21 Status: Ordered metoprolol 50 mg oral tablet, extended release 50 mg, 1, tablet, By Mouth, Daily, do not crush or chew, # 30 tablet, Refills 11, Tot. Refills 11, Maintenance, 07/12/20 14:44:00 EDT, Route to Pharmacy Electronically, [facility], 174, cm,07/12/20 14:32:00 EDT, Height, 57, kg, 03/19/19 14:... Start Date: 07/12/20 Status: Ordered montelukast 10 mg oral tablet 1, tablet, By Mouth, Daily at bedtime, # 30 tablet, Refills 5, Route to Pharmacy Electronically, [facility], 174, cm, 03/22/21 13:58:00 EST, Height Start Date: 04/07/21 Status: Ordered Nebulizer/Compressor See Instructions, # 1 each, Maintenance, Use up to qid Dx. copd Include tubing and mouthpiece, 04/29/21 14:42:00 EST, Supply Start Date: 04/29/21 Status: Ordered pravastatin 40 mg oral tablet 1 tablet = 40 mg, By Mouth, Daily, # 90 tablet, 1 Refills, Maintenance, 05/10/21 10:26:00 EST, Tablet, [facility], 180, cm, 05/03/21 9:32:00 EST, Height, 77, kg, 04/20/21 15:47:00 EST, Dry Weight Start Date: 05/10/21 Status: Ordered ProAir HFA 90 mcg/inh inhalation aerosol with adapter 2, puffs, Inhalation, Every 6 hours, PRN, # 8.5 Gm, Refills 6, Route to Pharmacy Electronically, [id number], [facility], 174, cm, 04/14/21 14:32:00 EST, Height Start Date: 04/18/21 Status: Ordered Spiriva Respimat 1.25 mcg/inh inhalation aerosol 2 puffs, Inhalation, Daily, # 4 Gm, 5 Refills, [facility], 180, cm, 05/03/21 9:32:00 EST,Height, 77, kg, 04/20/21 15:47:00 EST, Dry Weight Start Date: 05/05/21 Status: Ordered Symbicort 160mcg/4.5mcg Inhaler 2, puffs, Inhalation, 2 times a day, # 10.2 Gm, Refills 10, Route to Pharmacy Electronically, [id number]_[id number], [facility], 180, cm, 05/03/21 9:32:00 EST, Height, [...] 07/12/20 14:43:00 EDT, Route to Pharmacy Electronically, [facility], 174, cm, 07/12/20 14:32:00 EDT, Height, 57, kg, 03/19/19 14:07:00 EST,... Start Date: 07/12/20 Status: Ordered venlafaxine 37.5 mg oral capsule, extended release 37.5 mg, 1, capsule, By Mouth, Daily, # 30 capsule, Refills 0, Tot. Refills 0, Maintenance, 06/27/21 13:03:00 EDT, Route to Pharmacy Electronically, [facility], Partial fill upon patient request if [...]
--- OUTSIDE RECORDS SUMMARY | 2022-09-19 20:53 | XMS_ITS | Continuity of Care Document ---
Author Name Unknown Organization [facility] Trevor Address [address] [place] [id number]- Care Team Providers Care Air Surveillance Operator Name Role Phone Mike Kruse MD Primary Care Physician [phone] Encounter [facility] Date(s): 08/11/21 - 08/18/21 [facility] Adult [address] [place] [address]- Encounter Diagnosis Headache(Discharge Diagnosis) - 08/11/21 Smoker(Discharge Diagnosis) - 08/11/21 Attending Physician: Nisha Hernandez NP Allergies, Adverse [...] 11 Refills, Maintenance, 07/15/21 15:49:00 EDT, Solution, [facility], Partial fill upon patient request if the prescription is for a schedule II opioid drug., 180, cm, 04... Start Date: 07/15/21 Status: Ordered amLODIPine 5 mg oral tablet 5 mg, 1, tablet, By Mouth, Daily, # 90 tablet, Refills 1, Tot. Refills 1, Soft Stop, 04/12/21 8:59:00 EST, Route to Pharmacy Electronically, [facility], 174, cm, 03/22/21 13:58:00 EST, Height Start Date: 04/12/21 Status: Ordered Aspirin Low Dose 81 mg oral delayed release tablet 1 tablet, By Mouth, Daily, # 30 tablet, 11 Refills, [facility], 180, cm, 05/03/21 9:32:00EST, Height, 77, kg, 04/20/21 15:47:00 EST, Dry Weight Start Date: 05/06/21 Status: Ordered cyclobenzaprine 5 mg oral tablet See Instructions, Take 1 tablet every 8 hours as needed for muscle spasm, # 21 capsule, 0 Refills, Maintenance, 08/11/21 10:25:00 EDT, Tablet, [facility], Partial fill upon patient request if the prescription is for a schedule II opioid drug... Start Date: 08/11/21 Status: Ordered Dulcolax Stool Softener 100 mg oral capsule 1 capsule = 100 mg, By Mouth, 2 times a day, # 60 capsule, 11 Refills, Maintenance, 07/26/21 14:09:00 EDT, Capsule, [facility], Partial fill upon patient request if the prescription is for a schedule II opioid drug., 180, cm, 07/15/21 15:35:... Start Date: 07/26/21 Stop Date: 07/21/22 Status: Ordered fluticasone 50 mcg/inh nasal spray See Instructions, USE 1 SPRAY IN EACH NOSTRIL TWICE A DAY, # 16 Gm, 5 Refills, [facility], 30, USE 1 SPRAY IN EACH NOSTRIL TWICE A DAY, 180, cm, 05/03/21 9:32:00 EST, Height, 77, kg, 04/20/21 15:47:00 EST, Dry Weight Start Date: 05/10/21 Status: Ordered losartan 100 mg oral tablet 1 tablet, By Mouth, Daily, # 30 tablet, 5 Refills, Maintenance, 07/05/21 11:52:00 EDT, [facility], 180, cm, 06/27/21 12:02:00 EDT, Height, 77, kg, 04/20/21 15:47:00 EST, Dry Weight Start Date: 07/05/21 Status: Ordered Medrol Dosepak 4 mg oral tablet 1 pack/packet, By Mouth, Daily, for 6 days, as directed on package labeling, # 21 tablet, 5 Refills, Acute 09/07/21 15:11:00 EDT, 08/02/21 15:11:00 EDT, Tablet, [facility], Partial fill upon patient request if the prescription is for a sched... Start Date: 08/02/21 Stop Date: 09/07/21 Status: Ordered Metoprolol Succinate ER 50 mg oral tablet, extended release 1 tablet, By Mouth, Daily, INSTR:DO NOT CRUSH OR CHEW, # 30 tablet, 5 Refills, [facility], 180, cm, 07/15/21 15:35:00 EDT, Height, 77, kg, 04/20/21 15:47:00 EST, Dry Weight Start Date: 07/29/21 Status: Ordered MiraLax oral powder for reconstitution = 17 Gm, By Mouth, 2 times a day, dissolve in water before taking, # 527 Gm, 11 Refills, Maintenance, 07/26/21 14:09:00 EDT, REC Powder, [facility], Partial fill upon patient request if theprescription is for a schedule II opioid drug., 17... Start Date: 07/26/21 Status: Ordered montelukast 10 mg oral tablet 1, tablet, By Mouth, Daily at bedtime, # 30 tablet, Refills 5, Route to Pharmacy Electronically, [facility], 174, cm, 03/22/21 13:58:00 EST, Height Start Date: 04/07/21 Status: Ordered Nebulizer/Compressor See Instructions, # 1 each, Maintenance, Use up to qid Dx. copd Include tubing and mouthpiece, 04/29/21 14:42:00 EST, Supply Start Date: 04/29/21 Status: Ordered Nicoderm C-Q Clear 21 mg/24 hr transdermal film, extended release 1 patch, Topically, Daily, for 6 week(s), # 42 patch, 0 Refills, Acute 09/22/21 10:22:00 EDT, 08/11/21 10:22:00 EDT, Patch, [facility], Partial fill upon patient request if the prescriptionis for a schedule II opioid drug., 180, cm, ... Start Date: 08/11/21 Stop Date: 09/22/21 Status: Ordered omeprazole 20 mg oral delayed release tablet 1 tablet = 20 mg, By Mouth, Daily, # 30 tablet, 11 Refills, Maintenance, 07/15/21 15:48:00 EDT, CR Tablet, [facility], Partial fill upon patient request if the prescription is for a schedule II opioid drug., 180, cm, 07/15/21 15:35:00 EDT, H... Start Date: 07/15/21 Stop Date: 07/10/22 Status: Ordered pravastatin 40 mg oral tablet 1 tablet = 40 mg, By Mouth, Daily, # 90 tablet, 1 Refills, Maintenance, 05/10/21 10:26:00 EST, Tablet, [facility], 180, cm, 05/03/21 9:32:00 EST, Height, 77, kg, 04/20/21 15:47:00 EST, Dry Weight Start Date: 05/10/21 Status: Ordered ProAir HFA 90 mcg/inh inhalation aerosol with adapter 2, puffs, Inhalation, Every 6 hours, PRN, # 8.5 Gm, Refills 6, Route to Pharmacy Electronically, [id number]_[id number], [facility], 174, cm, 04/14/21 14:32:00 EST, Height Start Date: 04/18/21 Status: Ordered Spiriva Respimat 1.25 mcg/inh inhalation aerosol 2 puffs, Inhalation, Daily, # 4 Gm, 5 Refills, [facility], 180, cm, 05/03/21 9:32:00 EST,Height, 77, kg, 04/20/21 15:47:00 EST, Dry Weight Start Date: 05/05/21 Status: Ordered Symbicort 160mcg/4.5mcg Inhaler 2, puffs, Inhalation, 2 times a day, # 10.2 Gm, Refills 10, Route to Pharmacy Electronically, [id number]_[id number], [facility], 180, cm, 05/03/21 9:32:00 EST, Height, 77, kg, 04/20/21 15:47:00 EST, Dry Weight Start Date: 05/06/21 Status: Ordered tamsulosin 0.4 mg oral capsule 1, capsule, By Mouth, Daily, # 30 capsule, Refills 5, [facility], 174, cm, 03/15/21 10:16:00 EST, Height, 57, kg, 03/19/19 14:07:00 EST, Dry Weight Start Date: 03/15/21 Status: Ordered traZODone 50 mg oral tablet 100 mg, 2, tablet, By Mouth, Daily at bedtime, # 60 tablet, Refills 5, Tot. Refills 5, Maintenance,08/05/21 10:43:00 EDT, Route to Pharmacy Electronically, [facility], 180, cm, 08/02/21 15:00:00 EDT, Height, 77, kg, 04/20/21 15:47:00 EST, D... Start Date: 08/05/21 Status: Ordered venlafaxine 37.5 mg oral capsule, extended release 37.5 mg, 1, capsule, By Mouth, Daily, # 30 capsule, Refills 0, Tot. Refills 0, Maintenance, 06/27/21 13:03:00 EDT, Route to Pharmacy Electronically, [facility], Partial fill upon patient request if [...] immunochemica l test(Confirmed) Active Gastroesophageal reflux(Confirmed) Active Headache(Confirmed) Active Hypercholesterolemia(Confirmed) Active HTN (hypertension)(Confirmed) Active ED [...] Dates Health Status Clini gabriel Service Informant Smoker Discharge Diagnosis 08/11/21 Headache Discharge Diagnosis 08/11/21 Vital Signs Most recent to oldest [Reference Range]: 1 Height 180 cm (08/11/21 9:47 AM) Temperature [96.8-100.4 DegF] 96.1 DegF *L* (08/11/21 9:47 AM) Social History Social History Type Response Smoking Status 5-9 cigarettes (betw een 1/4 to 1/2 pack)/day in last 30 days entered on: 05/26/19 Sex
--- OUTSIDE RECORDS SUMMARY | 2022-09-19 20:53 | XMS_ITS | Continuity of Care Document ---
Author Name Unknown Organization [facility] Trevor lt Address [address] [place] [address]- Care Team Providers Care Commercial Service Technician Name Role Phone Mike Kruse MD Primary Care Physician Encounter [facility] Date(s): 09/07/21 - 10/07/21 [facility] Adult [address] [place] [address]- Allergies, Adverse Reactions, Alerts Substance Reaction Severity [...] 11 Refills, Maintenance, 07/15/21 15:49:00 EDT, Solution, [facility], Partial fill upon patient request if the prescription is for a schedule II opioid drug., 180, cm, 04... Start Date: 07/15/21 Status: Ordered amLODIPine 5 mg oral tablet 5 mg, 1, tablet, By Mouth, Daily, # 90 tablet, Refills 1, Tot. Refills 1, Soft Stop, 04/12/21 8:59:00 EST, Route to Pharmacy Electronically, [facility], 174, cm, 03/22/21 13:58:00 EST, Height Start Date: 04/12/21 Status: Ordered Aspirin Low Dose 81 mg oral delayed release tablet 1 tablet, By Mouth, Daily, # 30 tablet, 11 Refills, [facility], 180, cm, 05/03/21 9:32:00EST, Height, 77, kg, 04/20/21 15:47:00 EST, Dry Weight Start Date: 05/06/21 Status: Ordered Claritin 10 mg oral tablet 10 mg, 1, tablet, By Mouth, Daily, REPLACES ZYRTEC, # 30 tablet, Refills 6, Tot. Refills 6, Maintenance, 08/23/21 10:10:00 EDT, Route to Pharmacy Electronically, [facility], Partial fill upon patient request if the prescription is for a sche... Start Date: 08/23/21 Status: Ordered Dulcolax Stool Softener 100 mg oral capsule 1 capsule = 100 mg, By Mouth, 2 times a day, # 60 capsule, 11 Refills, Maintenance, 07/26/21 14:09:00 EDT, Capsule, [facility], Partial fill upon patient request if the prescription is for a schedule II opioid drug., 180, cm, 07/15/21 15:35:... Start Date: 07/26/21 Stop Date: 07/21/22 Status: Ordered fluticasone 50 mcg/inh nasal spray See Instructions, USE 1 SPRAY IN EACH NOSTRIL TWICE A DAY, # 16 Gm, 5 Refills, [facility], 30, USE 1 SPRAY IN EACH NOSTRIL TWICE A DAY, 180, cm, 05/03/21 9:32:00 EST, Height, 77, kg, 04/20/21 15:47:00 EST, Dry Weight Start Date: 05/10/21 Status: Ordered losartan 100 mg oral tablet 1 tablet, By Mouth, Daily, # 30 tablet, 5 Refills, Maintenance, 07/05/21 11:52:00 EDT, [facility], 180, cm, 06/27/21 12:02:00 EDT, Height, 77, kg, 04/20/21 15:47:00 EST, Dry Weight Start Date: 07/05/21 Status: Ordered magnesium oxide 400 mg oral tablet 1 tablet, By Mouth, Daily, # 30 tablet, 6 Refills, [facility], 180, cm, 09/26/21 10:49:00EDT, Height, 77, kg, 04/20/21 15:47:00 EST, Dry Weight Start Date: 09/27/21 Status: Ordered meclizine 25 mg oral tablet 1 tablet = 25 mg, By Mouth, 3 times a day, PRN for dizziness, # 30 tablet, 0 Refills, Acute 10/10/21 0:00:00 EDT, 09/26/21 11:21:00 EDT, Tablet, [facility], Partial fill upon patient request if the prescription is for a schedule II opioid . Start Date: 09/26/21 Stop Date: 10/10/21 Status: Ordered Metoprolol Succinate ER 50 mg oral tablet, extended release 1 tablet, By Mouth, Daily, INSTR:DO NOT CRUSH OR CHEW, # 30 tablet, 5 Refills, [facility], 180, cm, 07/15/21 15:35:00 EDT, Height, 77, kg, 04/20/21 15:47:00 EST, Dry Weight Start Date: 07/29/21 Status: Ordered MiraLax oral powder for reconstitution = 17 Gm, By Mouth, 2 times a day, dissolve in water before taking, # 527 Gm, 11 Refills, Maintenance, 07/26/21 14:09:00 EDT, REC Powder, [facility], Partial fill upon patient request if theprescription is for a schedule II opioid drug., 17... Start Date: 07/26/21 Status: Ordered montelukast 10 mg oral tablet 1, tablet, By Mouth, Daily at bedtime, # 30 tablet, Refills 5, Route to Pharmacy Electronically, [facility], 174, cm, 03/22/21 13:58:00 EST, Height [...] Refills, Maintenance, 07/15/21 15:48:00 EDT, CR Tablet, [facility], Partial fill upon patient request if the prescription is for a schedule II opioid drug., 180, cm, 07/15/21 15:35:00 EDT, H... Start Date: 07/15/21 Stop Date: 07/10/22 Status: Ordered pravastatin 40 mg oral tablet 1 tablet = 40 mg, By Mouth, Daily, # 90 tablet, 1 Refills, Maintenance, 05/10/21 10:26:00 EST, Tablet, [facility], 180, cm, 05/03/21 9:32:00 EST, Height, 77, kg, 04/20/21 15:47:00 EST, Dry Weight Start Date: 05/10/21 Status: Ordered ProAir HFA 90 mcg/inh inhalation aerosol with adapter 2, puffs, Inhalation, Every 6 hours, PRN, # 8.5 Gm, Refills 6, Route to Pharmacy Electronically, NCPDP_[id number], [facility], 174, cm, 04/14/21 14:32:00 EST, Height Start Date: 04/18/21 Status: Ordered riboflavin 400 mg oral capsule 1 capsule = 400 mg, By Mouth, Daily, # 30 capsule, 5 Refills, Maintenance, 08/23/21 10:09:00 EDT, [facility], Partial fill upon patient request if the prescription is for a schedule II opioid drug., 180, cm, 08/23/21 9:21:00 EDT, Height, 77,... Start Date: 08/23/21 Status: Ordered Spiriva Respimat 1.25 mcg/inh inhalation aerosol 2 puffs, Inhalation, Daily, # 4 Gm, 5 Refills, 10/03/21 11:24:00 EDT, [facility], 180, cm, 09/26/21 10:49:00 EDT, Height, 77, kg, 04/20/21 15:47:00 EST, Dry Weight Start Date: 10/03/21 Status: Ordered Symbicort 160mcg/4.5mcg Inhaler 2, puffs, Inhalation, 2 times a day, # 10.2 Gm, Refills 10, Route to Pharmacy Electronically, NCPDP_[id number], [facility], 180, cm, 05/03/21 9:32:00 EST, Height, 77, kg, 04/20/21 15:47:00 EST, Dry Weight Start Date: 05/06/21 Status: Ordered tamsulosin 0.4 mg oral capsule 1, capsule, By Mouth, Daily, # 30 capsule, Refills 4, Tot. Refills 4, Maintenance, 08/25/21 14:22:00 EDT, Route to Pharmacy Electronically, [facility], 180, cm, 08/23/21 9:21:00 EDT, Height, 77, kg, 04/20/21 15:47:00 EST, Dry Weight Start Date: 08/25/21 Status: Ordered traZODone 50 mg oral tablet 100 mg, 2, tablet, By Mouth, Daily at bedtime, # 60 tablet, Refills 5, Tot. Refills 5, Maintenance,08/05/21 10:43:00 EDT, Route to Pharmacy Electronically, [facility], 180, cm, 08/02/21 15:00:00 EDT, Height, 77, kg, 04/20/21 15:47:00 EST, D... Start Date: 08/05/21 Status: Ordered venlafaxine 37.5 mg oral capsule, extended release 37.5 mg, 1, capsule, By Mouth, Daily, # 30 capsule, Refills 0, Tot. Refills 0, Maintenance, 06/27/21 13:03:00 EDT, Route to Pharmacy Electronically, [facility], Partial fill upon patient request if the prescription is for a schedule II opioi... Start Date: 06/27/21 Status: Ordered Problem List Condition Effective Dates Status Health Status Inform ant Allergic rhinitis due to pollen(Confirmed) Active Anemia(Confirmed) Active Anxiety(Confirmed) Active Arthralgia of pelvis or thigh(Confirmed) Active Benign prostatic hyperplasia(Confirmed) Active Cerebrovascular disease(Confirmed) Active Constipation(Confirmed) Active Erectile dysfunction(Confirmed) Active Positive fecal immunochemica l test(Confirmed) Active [...]
--- OUTSIDE RECORDS SUMMARY | 2022-09-19 20:53 | XMS_ITS | Continuity of Care Document ---
Author Name Unknown Organization [facility] Address [address] [place] [address]- Care Team Providers Care Drop Wire Aligner Name Role Phone Aixa BERNABE, Mike Bennett Primary Care Physician [phone] Encounter [facility] Date(s): 04/18/21 - 05/18/21 [facility] Adult [address] [place] [address]- Allergies, Adverse Reactions, Alerts Substance Reaction Severity [...] 04/12/21 8:59:00 EST, Route to Pharmacy Electronically, [facility], 174, cm, 03/22/21 13:58:00 EST, Height Start Date: 04/12/21 Status: Ordered Aspirin Low Dose 81 mg oral delayed release tablet 1 tablet, By Mouth, Daily, # 30 tablet, 11 Refills, [facility], 180, cm, 05/03/21 9:32:00EST, Height, 77, kg, 04/20/21 15:47:00 EST, Dry Weight Start Date: 05/06/21 Status: Ordered Combivent Respimat 20 mcg-100 mcg/inh inhalation aerosol 1 puffs, Inhalation, 4 times a day, PRN NEEDED FOR WHEEZING OR SHORTNESS OF BREATH, # 4 Gm, 5 Refills, Maintenance, 05/10/21 11:08:00 EST, [facility], 30, 1 puffs Inhalation 4 times a day,PRN: NEEDED FOR WHEEZING OR SHORTNESS OF BREATH,... Start Date: 05/10/21 Status: Ordered fluticasone 50 mcg/inh nasal spray See Instructions, USE 1 SPRAY IN EACH NOSTRIL TWICE A DAY, # 16 Gm, 5 Refills, [facility], 30, USE 1 SPRAY IN EACH NOSTRIL TWICE A DAY, 180, cm, 05/03/21 9:32:00 EST, Height, 77, kg, 04/20/21 15:47:00 EST, Dry Weight Start Date: 05/10/21 Status: Ordered losartan 100 mg oral tablet 1 tablet, By Mouth, Daily, # 30 tablet, 11 Refills, Maintenance, 07/12/20 14:44:00 EDT, [facility], 174, cm, 07/12/20 14:32:00 EDT, Height, 57, kg, 03/19/19 14:07:00 EST, Dry Weight Start Date: 07/12/20 Status: Ordered metoprolol 50 mg oral tablet, extended release 50 mg, 1, tablet, By Mouth, Daily, do not crush or chew, # 30 tablet, Refills 11, Tot. Refills 11, Maintenance, 07/12/20 14:44:00 EDT, Route to Pharmacy Electronically, [facility], 174, cm,07/12/20 14:32:00 EDT, Height, 57, kg, 03/19/19 14:... Start Date: 07/12/20 Status: Ordered montelukast 10 mg oral tablet 1, tablet, By Mouth, Daily at bedtime, # 30 tablet, Refills 5, Route to Pharmacy Electronically, [facility], 174, cm, 03/22/21 13:58:00 EST, Height Start Date: 04/07/21 Status: Ordered Nebulizer/Compressor See Instructions, # 1 each, Maintenance, Use up to qid Dx. copd Include tubing and mouthpiece, 04/29/21 14:42:00 EST, Supply Start Date: 04/29/21 Status: Ordered pravastatin 40 mg oral tablet 1 tablet = 40 mg, By Mouth, Daily, # 90 tablet, 1 Refills, Maintenance, 05/10/21 10:26:00 EST, Tablet, [facility], 180, cm, 05/03/21 9:32:00 EST, Height, 77, kg, 04/20/21 15:47:00 EST, Dry Weight Start Date: 05/10/21 Status: Ordered predniSONE 10 mg oral tablet See Instructions, 40 mg p.o. daily for 3 days, 30 mg p.o. daily for 3 days, 20 mg p.o. daily for 3 days and 10 mg p.o. daily for 3 days, # 30 tablet, 0 Refills, Maintenance, 04/22/21 10:45:00 EST, Tablet, [facility], Partial fill upon patien... Start Date: 04/22/21 Status: Ordered ProAir HFA 90 mcg/inh inhalation aerosol with adapter 2, puffs, Inhalation, Every 6 hours, PRN, # 8.5 Gm, Refills 6, Route to Pharmacy Electronically, NCPDP_[id number], [facility], 174, cm, 04/14/21 14:32:00 EST, Height Start Date: 04/18/21 Status: Ordered Remeron 15 mg oral tablet 1 tablet = 15 mg, By Mouth, Daily at bedtime, REPLACES ZOLOFT, # 30 tablet, 1 Refills, Maintenance,06/22/20 15:13:00 EST, Tablet, [facility], Partial fill upon patient request if the prescription is for a schedule II opioid drug., 174, cm,... Start Date: 06/22/20 Status: Ordered Spiriva Respimat 1.25 mcg/inh inhalation aerosol 2 puffs, Inhalation, Daily, # 4 Gm, 5 Refills, [facility], 180, cm, 05/03/21 9:32:00 EST,Height, 77, kg, 04/20/21 15:47:00 EST, Dry Weight Start Date: 05/05/21 Status: Ordered Symbicort 160mcg/4.5mcg Inhaler 2, puffs, Inhalation, 2 times a day, # 10.2 Gm, Refills 10, Route to Pharmacy Electronically, PAPDP_[id number], [facility], 180, cm, 05/03/21 9:32:00 EST, Height, 77, kg, 04/20/21 15:47:00 EST, Dry Weight Start Date: 05/06/21 Status: Ordered tamsulosin 0.4 mg oral capsule 1, capsule, By Mouth, Daily, # 30 capsule, Refills 5, [facility], 174, cm, 03/15/21 10:16:00 EST, Height, 57, kg, 03/19/19 14:07:00 EST, Dry Weight Start Date: 03/15/21 Status: Ordered traZODone 50 mg oral tablet 100 mg, 2, tablet, By Mouth, Daily at bedtime, # 60 tablet, Refills 11, Tot. Refills 11, Maintenance, 07/12/20 14:43:00 EDT, Route to Pharmacy Electronically, [facility], 174, cm, 07/12/20 14:32:00 EDT, Height, 57, kg, 03/19/19 14:07:00 EST,... Start Date: 07/12/20 Status: Ordered Problem List Condition Effective Dates [...]
--- OUTSIDE RECORDS SUMMARY | 2022-09-19 20:53 | XMS_ITS | Continuity of Care Document ---
Author Name Unknown Organization [facility] lt Address [address] [place] [address]- Care Team Providers Care Sales Support Technician Name Role Phone Aixa BERNABE, Mike Bennett Primary Care Physician [facility]counter [facility] Date(s): 03/23/20 - 04/22/20 [facility] [address] [place] [address]- Allergies, Adverse Reactions, Alerts Substance Reaction Severity Status lisinopril Atenolol Trisha norvegensis Active cloNIDine Active Immunizations Given and Recorded Vaccine Date Status Refusal Reason influenza virus vaccine, inactivated 01/08/20 Give n [...] 3Result Comment: [03/20/2016] [facility] Medications albuterol CFC free 90 mcg/inh inhalation aerosol 2, puffs, Inhalation, Every 6 hours, PRN, # 9 Gm, Refills 11, Tot. Refills 11, Maintenance, 11/17/19 12:49:00 EDT, Aerosol, Route to Pharmacy Electronically, [id number], [facility], 174, cm, 10/01/19 13:58:00 EDT, Height, 57, kg, 03/19... Start Date: 11/17/19 Status: Ordered amLODIPine 5 mg oral tablet 5 mg, 1, tablet, By Mouth, Daily, # 90 tablet, Refills 1, Tot. Refills 1, Soft Stop, 03/23/20 11:00:00 EST, Route to Pharmacy Electronically, [facility], 174, cm, 03/01/20 11:26:00 EST, Height, 57, kg, 03/19/19 14:07:00 EST, Dry Weight Start Date: 03/23/20 Status: Ordered aspirin 81 mg oral tablet 1 tablet = 81 mg, By Mouth, Daily, PER DR TRISTAN, # 30 tablet, 5 Refills, Maintenance, 10/13/19 13:42:00 EDT, Tablet, [facility], 174, cm, 10/01/19 13:58:00 EDT, Height, 57, kg, 03/19/19 14:07:00 EST, Dry Weight Start Date: 10/13/19 Status: Ordered Azithromycin 5 Day Dose Pack 250 mg oral tablet 1 pack/packet, By Mouth, Once, # 6 tablet, 0 Refills, Soft Stop, 03/01/20 12:01:00 EST, Tablet, [facility], Partial fill upon patient request, 174, cm, 03/01/20 11:26:00 EST, Height, 57, kg, 03/19/19 14:07:00 EST, Dry Weight Start Date: 03/01/20 Status: Ordered Chantix Starter Pack 0.5 mg-1 mg oral tablet 1 tablet, By Mouth, 2 times a day, as directed on package labeling, # 53 tablet, 0 Refills, Maintenance, 02/13/20 14:46:00 EDT, Tablet, [facility], 1 tablet By Mouth 2 times a day,Instr:as directed on package labeling, 174, cm, 02/13/20 14:1... Start Date: 02/13/20 Status: Ordered Combivent Respimat 20 mcg-100 mcg/inh inhalation aerosol 1 puffs, Inhalation, 4 times a day, PRN Wheezing/Shortness of Breath, # 1 each, 0 Refills, Maintenance, 03/12/20 14:48:00 EST, Aerosol, [facility], 1 puffs Inhalation 4 times a day,PRN:Wheezing/Shortness of Breath, 174, cm, 03/01/20 11:26:00... Start Date: 03/12/20 Status: Ordered ENSURE CHOCOLATE ENSURE CHOCOLATE, See Instructions, # 1 box, Refills 0, Tot. Refills 0, Maintenance, drink 2 ensuredaily dx code: r63.0 R63.4 , 08/31/17 9:38:21 EDT, Compound Start Date: 08/31/17 Status: Ordered Flomax 0.4 mg oral capsule 0.4 mg, 1, capsule, By Mouth, Daily, # 30 capsule, Refills 5, Tot. Refills 5, Maintenance, 10/12/2012:42:00 EDT, Route to Pharmacy Electronically, [facility], 174, cm, 10/01/19 13:58:00 EDT, Height, [...] EDT, Tablet Start Date: 12/03/17 Status: Ordered metoprolol 50 mg oral tablet, extended release 50 mg, 1, tablet, By Mouth, Daily, do not crush or chew, # 30 tablet, Refills 2, Tot. Refills 2, Maintenance, 10/14/19 8:46:00 EDT, Route to Pharmacy Electronically, [facility], 174, cm, 10/01/19 13:58:00 EDT, Height, 57, kg, 03/19/19 14:07:... Start Date: 10/14/19 Status: Ordered Nasacort Allergy 24HR 55 mcg/inh nasal spray 2 sprays, Nares, Both, Daily, # 3 each, 0 Refills, Maintenance, 01/08/20 14:50:00 EDT, [facility], 2 sprays Nares, Both Daily, 174, [...] Daily, # 90 tablet, 1 Refills, Maintenance, 03/23/20 10:59:00 EST, Tablet, [facility], 174, cm, 03/01/20 11:26:00 EST, Height, 57, kg, 03/19/19 14:07:00 EST, DryWeight Start Date: 03/23/20 Status: Ordered Singulair 10 mg oral tablet 10 mg, 1, tablet, By Mouth, Daily at bedtime, PER ARPIT DUNN, # 30 tablet, Refills 5, Tot. Refills 5, Maintenance, 10/13/19 13:42:00 EDT, Route to Pharmacy Electronically, [facility], 174, cm, 10/01/19 13:58:00 EDT, Height, 57, kg, 12... Start Date: 10/13/19 Status: Ordered Spiriva HandiHaler 18 mcg inhalation capsule 1 capsule = 18 mcg, Inhalation, Daily, use two inhalations of one capsule for each dose, # 30 capsule, 5 Refills, Maintenance, 02/18/20 9:52:00 EST, [facility], 174, cm, 02/13/20 14:17:00 EDT, Height, 57, kg, 03/19/19 14:07:00 EST, Dry Weight Start Date: 02/18/20 Stop Date: 08/16/20 Status: Ordered traZODone 50 mg oral tablet 100 mg, 2, tablet, By Mouth, Daily at bedtime, # 60 tablet, Refills 5, Tot. Refills 5, Maintenance,03/08/20 9:08:00 EST, Route to Pharmacy Electronically, [facility], 174, cm, 03/01/20 11:26:00 EST, Height, 57, kg, 03/19/19 14:07:00 EST, . Start Date: 03/08/20 Status: Ordered Tylenol Extra Strength 500 mg [...] 5 Refills, Maintenance, 03/08/20 8:02:00 EST, Tablet, [facility], 174, cm, 03/01/20 11:26:00 EST, Height, [...] CT Images: From the [employer] 2017. [id number] 5IMPRESSION: 1. Severe emphysema. No evidence of [...]
--- OUTSIDE RECORDS SUMMARY | 2022-09-19 20:53 | XMS_ITS | Continuity of Care Document ---
Author Name Unknown Organization [facility] lt Address [address] [place] [address]- Care Team Providers Care Director Hematology Name Role Phone Mike Tristan MD Primary Care Physician [phone] Encounter [facility] Date(s): 12/30/20 - 01/06/21 [facility] Adult [address] [place] [address]- Encounter Diagnosis Cough(Discharge Diagnosis) - 12/30/20 SOB (shortness of breath)(Discharge Diagnosis) - 12/30/20 Attending Physician: Not on Staff, Attending MD [...] 05/05/20 13:45:00 EST, Route to Pharmacy Electronically, [facility], 174, cm, 03/01/20 11:26:00 EST, Height, 57, kg, 03/19/19 14:07:00 EST, Dry Weight Start Date: 05/05/20 Status: Ordered aspirin 81 mg oral tablet 1 tablet = 81 mg, By Mouth, Daily, PER DR TRISTAN, # 30 tablet, 5 Refills, Maintenance, 10/13/19 13:42:00 EDT, Tablet, [facility], 174, cm, 10/01/19 13:58:00 EDT, Height, 57, kg, 03/19/19 14:07:00 EST, Dry Weight Start Date: 10/13/19 Status: Ordered Augmentin 875 mg-125 mg oral tablet 1 tablet, By Mouth, Every 12 hours, for 10 days, # 20 tablet, 0 Refills, Acute 01/09/21 15:04:00 EDT, 12/30/20 15:04:00 EDT, Tablet, [facility], Partial fill upon patient request if the prescription is for a schedule II opioid drug., 174, cm... Start Date: 12/30/20 Stop Date: 01/09/21 Status: Ordered Combivent Respimat 20 mcg-100 mcg/inh inhalation aerosol 1 puffs, Inhalation, 4 times a day, PRN NEEDED FOR WHEEZING OR SHORTNESS OF BREATH, # 4 Gm, 11 Refills, Maintenance, 05/07/20 10:33:00 EST, [facility], 30, 1 puffs Inhalation 4 times a day,PRN: NEEDED FOR WHEEZING OR SHORTNESS OF BREATH... Start Date: 05/07/20 Status: Ordered docusate sodium 100 mg oral capsule 1 capsule = 100 mg, By Mouth, 2 times a day, PRN as needed for constipation, # 100 capsule, 2 Refills, Maintenance, 08/17/20 14:09:00 EDT, Capsule, [facility], Partial fill upon patient request if [...] 16 Gm, 2 Refills, 08/24/20 15:55:00 EDT, [facility], 30, INSTILL 1 SPRAY INTO EACH [...] 1 Refills, Maintenance, 11/30/20 11:11:00 EDT, Capsule, [facility], Partial fill upon patient request if the prescription is for a scheduleII opioid drug., 174, cm, 11/30/20 10:34:00 EDT, He... Start Date: 11/30/20 Status: Ordered losartan 100 mg oral tablet 1 tablet, By Mouth, Daily, # 30 tablet, 11 Refills, Maintenance, 07/12/20 14:44:00 EDT, [facility], 174, cm, 07/12/20 14:32:00 EDT, Height, 57, kg, 03/19/19 14:07:00 EST, Dry Weight Start Date: 07/12/20 Status: Ordered metoprolol 50 mg oral tablet, extended release 50 mg, 1, tablet, By Mouth, Daily, do not crush or chew, # 30 tablet, Refills 11, Tot. Refills 11, Maintenance, 07/12/20 14:44:00 EDT, Route to Pharmacy Electronically, [facility], 174, cm,07/12/20 14:32:00 EDT, Height, 57, kg, 03/19/19 14:... Start Date: 07/12/20 Status: Ordered montelukast 10 mg oral tablet 1, tablet, By Mouth, Daily at bedtime, # 30 tablet, Refills 4, Tot. Refills 0, Maintenance, 10/20/20 11:07:00 EDT, Route to Pharmacy Electronically, [facility], 174, cm, 09/14/20 14:37:00 EDT, Height, 57, kg, 03/19/19 14:07:00 EST, Dry Weight Start Date: 10/20/20 Status: Ordered Nasacort Allergy 24HR 55 mcg/inh nasal spray 2 sprays, Nares, Both, Daily, # 3 each, 0 Refills, Maintenance, 01/08/20 14:50:00 EDT, [facility], 2 sprays Nares, Both Daily, 174, cm, 01/08/20 14:29:00 EDT, Height, 57, kg, 03/19/19 14:07:00 EST, Dry Weight Start Date: 01/08/20 Status: Ordered nicotine 4 mg oral transmucosal lozenge 1 lozenge = 4 mg, By Mouth, Every hour, # 189 lozenge, 11 Refills, Maintenance, 07/12/20 14:49:00 EDT, [facility], 1 lozenge By Mouth Every hour, [...] 1 Refills, Maintenance, 08/24/20 15:56:00 EDT, Tablet, [facility], 174, cm, 08/17/20 13:45:00 EDT, Height, 57, kg, 03/19/19 14:07:00 EST, DryWeight Start Date: 08/24/20 Status: Ordered predniSONE 20 mg oral tablet See Instructions, 2 tablets daily for 5 days and then 1 tablet daily for 5 days, # 15 tablet, 0 Refills, Maintenance, 12/30/20 15:04:00 EDT, [facility], Partial fill upon patient request ifthe prescription is for a schedule II opioid drug.,... Start Date: 12/30/20 Status: Ordered Remeron 15 mg oral tablet 1 tablet = 15 mg, By Mouth, Daily at bedtime, REPLACES ZOLOFT, # 30 tablet, 1 Refills, Maintenance,06/22/20 15:13:00 EST, Tablet, [facility], Partial fill upon patient request if the prescription is for a schedule II opioid drug., 174, cm,... Start Date: 06/22/20 Status: Ordered Spiriva Respimat 1.25 mcg/inh inhalation aerosol 2 puffs, Inhalation, Daily, # 4 Gm, 11 Refills, Maintenance, 05/25/20 13:51:00 EST, Aerosol, [facility], Partial fill upon patient request if the prescription is for a schedule II opioid drug., 174, cm, 05/07/20 10:13:00 EST, Height, 57, kg,... Start Date: 05/25/20 Status: Ordered Symbicort 160mcg/4.5mcg Inhaler 2, puffs, Inhalation, 2 times a day, # 1 each, Refills 11, Tot. Refills 11, Maintenance, 05/25/20 13:51:00 EST, Aerosol, Route to Pharmacy Electronically, [id number], [facility], 174,cm, 05/07/20 10:13:00 EST, Height, 57, kg, 03/19/19... Start Date: 05/25/20 Status: Ordered tamsulosin 0.4 mg oral capsule 1, capsule, By Mouth, Daily, # 30 capsule, Refills 4, Tot. Refills 0, Maintenance, 10/20/20 11:06:00 EDT, Route to Pharmacy Electronically, [facility], 174, cm, 09/14/20 14:37:00 EDT, Height, 57, kg, 03/19/19 14:07:00 EST, Dry Weight Start Date: 10/20/20 Status: Ordered traZODone 50 mg oral tablet 100 mg, 2, tablet, By Mouth, Daily at bedtime, # 60 tablet, Refills 11, Tot. Refills 11, Maintenance, 07/12/20 14:43:00 EDT, Route to Pharmacy Electronically, [facility], 174, cm, 07/12/20 14:32:00 EDT, Height, 57, kg, 03/19/19 14:07:00 EST,... Start Date: 07/12/20 Status: Ordered Tylenol Extra Strength 500 mg oral tablet See Instructions, PRN for pain, 1 or 2 tablet By Mouth 3 times a day PER DR TRISTAN, # 100 tablet, 11 Refills, Maintenance, 06/08/20 10:22:00 EST, Tablet, [facility], 174, cm, 06/08/20 9:48:00 EST, Height, 57, kg, 03/19/19 14:07:00 EST, Dry Weight Start Date: 06/08/20 Status: Ordered ZyrTEC 10 mg oral tablet 1 tablet = 10 mg, By Mouth, Daily, # 30 tablet, 5 Refills, Maintenance, 03/08/20 8:02:00 EST, Tablet, [facility], 174, cm, 03/01/20 11:26:00 EST, Height, [...] Dates Health Status Cl inical Service Informant Cough Discharge Diagnosis 12/30/20 SOB (shortness of breath) Discharge Diagnosis 12/30/20 Vital Signs Most recent to oldest [Reference Range]: 1 Height 174 cm (12/30/20 2:45 PM) Social History Social History Type Response Smoking Status 5-9 cigarettes (betw een 1/4 to 1/2 pack)/day in last 30 days entered on: 05/26/19 Sex
--- OUTSIDE RECORDS SUMMARY | 2022-09-19 20:53 | XMS_ITS | Continuity of Care Document ---
Author Name Unknown Organization [facility] lt Address [address] [place] [address]- Care Team Providers Care Log Chain Worker Name Role Phone Mike Kruse MD Primary Care Physician [facility]counter [facility] Date(s): 02/07/22 - 03/09/22 [facility] Adult [address] [place] [address]- Allergies, Adverse Reactions, Alerts Substance Reaction Severity Status lisinopril Atenolol Trisha norvegensis Active cloNIDine Active Immunizations Given and Recorded Vaccine Date Status Refusal Reason [id number] 12y+ bivalent booster vax 1 01/20/22 Given [...] Given tetanus/diphtheria/pertussis, acel(Tdap) 04/01/09 Recorded 1Result Comment: [facility] [place] [id number] 2Location History: [facility] 3Result Comment: [11/22/2016] [facility] 4Result Comment: [03/20/2016] [facility] Medications acetaminophen 325 mg oral tablet 650 mg, 2, tablet, By Mouth, Every 4 hours, PRN, # 30 tablet, Refills 0, Tot. Refills 0, Maintenance, Pain , Mild, 02/21/22 15:17:00 EST, Route to Pharmacy Electronically, [facility], Partial fill upon patient request if the prescription... Start Date: 02/21/22 Status: Ordered albuterol 0.083% inhalation solution 3 mL = 2.5 mg, Inhalation, Every 6 hours, PRN for wheezing, # 60 each, 5 Refills, Maintenance, 10/28/21 14:18:00 EDT, Solution, [facility]/pharmacy #1230, 165, cm, 10/28/21 4:51:00 EDT, Height, 60.5, kg, 10/26/21 13:16:00 EDT, Dry Weight Start Date: 10/28/21 Status: Ordered amLODIPine 5 mg oral tablet 1 tablet, By Mouth, Daily, # 90 tablet, 1 Refills, Maintenance, 02/09/22 12:58:00 EDT, [id number], 163, cm, 02/07/22 18:18:00 EDT, Height, 60, kg, 02/07/22 15:54:00 EDT, Dry Weight Start Date: 02/09/22 Status: Ordered Aspirin Low Dose 81 mg oral delayed release tablet 1 tablet, By Mouth, Daily, # 30 tablet, 11 Refills, 10/19/21 9:10:00 EDT, [facility]/pharmacy #1230, 180, cm, 09/26/21 10:49:00 [...] each, 5 Refills, Maintenance, 12/19/21 15:27:00 EDT, [facility], 30, USE 1 SPRAY IN EACH NOSTRIL TWICE A DAY, 162, cm, 12/16/21 14:39:00 EDT, Height, 59.5, kg, 12/16/21 0:28:00... Start Date: 12/19/21 Status: Ordered guaiFENesin 400 mg oral tablet 1 tablet = 400 mg, By Mouth, 4 times a day, # 120 tablet, 5 Refills, Maintenance, 10/28/21 14:19:00EDT, Tablet, [facility]/pharmacy #1230, 165, cm, 10/28/21 4:51:00 [...] tablet, 4 Refills, Maintenance, 12/23/21 13:25:00 EDT, [facility], 162, cm, 12/16/21 14:39:00 EDT, Height, 59.5, kg, 12/16/21 0:28:00 EDT, Dry Weight Start Date: 12/23/21 Status: Ordered magnesium oxide 400 mg oral tablet 1 tablet, By Mouth, Daily, # 30 tablet, 6 Refills, Maintenance, 10/19/21 9:10:00 EDT, [facility]/pharmacy #1230, 180, cm, 09/26/21 10:49:00 EDT, Height, 77, kg, 04/20/21 15:47:00 EST, Dry Weight Start Date: 10/19/21 Stop Date: 10/19/21 Status: Ordered Metoprolol Succinate ER 50 mg oral tablet, extended release 1 tablet, By Mouth, Daily, INSTR:DO NOT CRUSH OR CHEW, # 30 tablet, 5 Refills, 10/19/21 9:10:00 EDT, [facility]/pharmacy #1230, 180, cm, 09/26/21 10:49:00 EDT, Height, 77, kg, 04/20/21 15:47:00 EST, Dry Weight Start Date: 10/19/21 Status: Ordered MiraLax oral powder for reconstitution = 17 Gm, By Mouth, 2 times a day, dissolve in water before taking, # 527 Gm, 11 Refills, Maintenance, 10/19/21 9:10:00 EDT, REC Powder, [facility]/pharmacy #1230, Partial fill upon patient request if the prescription is for a schedule II opioid drug., 17 Gm... Start Date: 10/19/21 Status: Ordered montelukast 10 mg oral tablet See Instructions, TAKE 1 TABLET BY MOUTH EVERY DAY AT BEDTIME, # 30 tablet, Refills 11, Tot. Refills 11, Maintenance, 01/20/22 14:03:00 EDT, Instructions Replace Required Details, Route to Pharmacy Electronically, [facility]/pharmacy #1230, 162, cm, 01/20/22... Start Date: 01/20/22 Status: Ordered omeprazole 20 mg oral delayed release tablet 1 tablet = 20 mg, By Mouth, Daily, # 30 tablet, 11 Refills, Maintenance, 07/10/22 15:48:00 EDT, CR Tablet, [facility]/pharmacy #1230, Partial fill upon patient [...] 02/21/22 15:17:00 EST, Route to Pharmacy Electronically, [facility], Partial fill upon patient request if the prescription... Start Date: 02/21/22 Status: Ordered Plavix 75 mg oral tablet 75 mg, 1, tablet, By Mouth, Daily, # 90 tablet, Refills 1, Tot. Refills 1, Maintenance, 11/18/21 16:53:00 EDT, Route to Pharmacy Electronically, [facility]/pharmacy #1230, Partial fill upon patient request if the prescription is for a schedule II opioid drug... Start Date: 11/18/21 Status: Ordered pravastatin 40 mg oral tablet See Instructions, TAKE 1 TABLET BY MOUTH EVERY DAY, # 30 tablet, 5 Refills, Maintenance, 12/19/21 15:29:00 EDT, [facility], 162, cm, 12/16/21 14:39:00 EDT, Height, 59.5, kg, 12/16/21 0:28:00 EDT, Dry Weight Start Date: 12/19/21 Status: Ordered ProAir HFA 90 mcg/inh inhalation aerosol with adapter 2, puffs, Inhalation, Every 6 hours, PRN, # 8.5 Gm, Refills 1, Tot. Refills 1, 12/13/21 12:40:00 EDT, Route to Pharmacy Electronically, [id number], [facility],162, cm, 12/13/21 4:46:00 EDT, Height, 60.3, kg, 08... Start Date: 12/13/21 Status: Ordered riboflavin 400 mg oral capsule 1 capsule = 400 mg, By Mouth, Daily, # 30 capsule, 5 Refills, Maintenance, 10/19/21 9:10:00 EDT, [facility]/pharmacy #1230, Partial fill upon patient request if the prescription is for a schedule II opioid drug., 180, cm, 09/26/21 10:49:00 EDT, Height, 77, k... Start Date: 10/19/21 Status: Ordered SEROquel 25 mg oral tablet 25 mg, 1, tablet, By Mouth, Daily at bedtime, # 30 tablet, Refills 5, Tot. Refills 5, Maintenance, 10/28/21 14:23:00 EDT, [facility] 165, cm, 10/28/21 4:51:00 EDT, Height, 60.5, kg, 10/26/21 13:16:00 EDT, Dry... Start Date: 10/28/21 Status: Ordered Spiriva Respimat 1.25 mcg/inh inhalation aerosol 2 puffs, Inhalation, Daily, # 4 Gm, 5 Refills, 10/19/21 9:10:00 EDT, [facility]/pharmacy #1230, 180, cm, 09/26/21 10:49:00 EDT, Height, 77, kg, 04/20/21 15:47:00 EST, Dry Weight Start Date: 10/19/21 Status: Ordered Symbicort 160mcg/4.5mcg Inhaler 2, puffs, Inhalation, 2 times a day, # 10.2 Gm, Refills 10, Tot. Refills 10, 10/19/21 9:10:00 EDT, Route to Pharmacy Electronically, [id number], [facility], 180, cm,09/26/21 10:49:00 EDT, Height, 77, kg, 04/20/21 15:... Start Date: 10/19/21 Status: Ordered tamsulosin 0.4 mg oral capsule 1, capsule, By Mouth, Daily, # 30 capsule, Refills 4, Tot. Refills 4, Maintenance, 10/19/21 9:10:00EDT, [facility] 180, cm, 09/26/21 10:49:00 EDT, Height, 77, kg, 04/20/21 15:47:00 EST, Dry Weight Start Date: 10/19/21 Status: Ordered venlafaxine 37.5 mg oral capsule, extended release 37.5 mg, 1, capsule, By Mouth, Daily, # 30 capsule, Refills 1, Tot. Refills 1, Maintenance, 02/09/22 12:57:00 EDT, Route to Pharmacy Electronically, [facility], Partial fill upon patient request if the prescription is for a schedule II opioid... Start Date: 02/09/22 Status: Ordered Zithromax 250 mg oral tablet 1 pack/packet, By Mouth, Once, # 6 tablet, 0 Refills, Soft Stop, 02/07/22 18:30:00 EDT, Tablet, [facility]/pharmacy #1230, Partial fill upon patient request if the prescription is for a schedule II opioid drug., 163, cm, 02/07/22 18:18:00 EDT, Height, 60, kg... Start Date: 02/07/22 Status: Ordered Problem List Condition Confirmation Course [...] Team Personnel Name: Ana West RN Position: [facility] RN Member Role: Primary Care Nurse Name: Odalys Orozco RN Position: [facility] RN Member Role: Primary Care Nurse Name: Mike Kruse MD Position: [facility] Primary Care Physician Member Role: PCP Address: Address: [address] [place] [address]- Name: Maryam Valenzuela RN Position: [facility] RN Member Role: Primary Care Nurse Name: Deandre Lara LPN Position: [facility] RN Member Role: Primary Care Nurse Name: Aruna Winkler RN Position: [facility] RN Member Role: Primary Care Nurse Name: Sabrina Hare RN Position: [facility] RN Member Role: Primary Care Nurse Name: Kristyn Olivo RN Position: [facility] RN Member Role: Primary Care Nurse Name: Marguerite Florentino RN Position: [facility] RN Member Role: Primary Care Nurse Care Team Related Persons Name: ENA SOTO Address: home [address] [place] [address] Name: ELISA TOMPKINS Address: [place] [address] Name: JOSE RAFAEL LI
--- OUTSIDE RECORDS SUMMARY | 2022-09-19 20:53 | XMS_ITS | Continuity of Care Document ---
Author Name Unknown Organization [facility] lt Address [address] [place] [address]- Care Team Providers Care Frickertron Checker Name Role Phone Aixa BERNABE, Mike Bennett Primary Care Physician [phone] Encounter [facility] Date(s): 09/10/20 - 10/10/20 [facility] Adult [address] [place] [address]- Allergies, Adverse Reactions, Alerts Substance Reaction Severity [...] 05/05/20 13:45:00 EST, Route to Pharmacy Electronically, [facility], 174, cm, 03/01/20 11:26:00 EST, Height, 57, kg, 03/19/19 14:07:00 EST, Dry Weight Start Date: 05/05/20 Status: Ordered aspirin 81 mg oral tablet 1 tablet = 81 mg, By Mouth, Daily, PER DR TRISTAN, # 30 tablet, 5 Refills, Maintenance, 10/13/19 13:42:00 EDT, Tablet, [facility], 174, cm, 10/01/19 13:58:00 EDT, Height, 57, kg, 03/19/19 14:07:00 EST, Dry Weight Start Date: 10/13/19 Status: Ordered ASPIRIN LOW 81MG EC ASPIRIN LOW 81MG EC, 1, tablet, By Mouth, Daily, # 30 tablet, 4 Refills, Maintenance, 04/28/20 8:42:00 EST, 174, cm, 03/01/20 11:26:00 EST, Height, 57, kg, 03/19/19 14:07:00 EST, Dry Weight Start Date: 04/28/20 Status: Ordered ASPIRIN LOW 81MG EC ASPIRIN LOW 81MG EC, 1, tablet, By Mouth, Daily, # 30 tablet, 3 Refills, Maintenance, 09/22/20 14:51:00 EDT, 174, cm, 09/14/20 14:37:00 EDT, Height, 57, kg, 03/19/19 14:07:00 EST, Dry Weight Start Date: 09/22/20 Status: Ordered Combivent Respimat 20 mcg-100 mcg/inh inhalation aerosol 1 puffs, Inhalation, 4 times a day, PRN NEEDED FOR WHEEZING OR SHORTNESS OF BREATH, # 4 Gm, 11 Refills, Maintenance, 05/07/20 10:33:00 EST, [facility], 30, 1 puffs Inhalation 4 times a day,PRN: NEEDED FOR WHEEZING OR SHORTNESS OF BREATH... Start Date: 05/07/20 Status: Ordered cromolyn 4% ophthalmic solution 1 drops, Eye, Left, 4 times a day, # 10 mL, 0 Refills, Maintenance, 08/31/20 9:58:00 EDT, Solution,[facility], Partial fill upon patient request if the prescription is for a schedule II opioid drug., 1 drops Eye, Left 4 times a day, 174, cm... Start Date: 08/31/20 Status: Ordered docusate sodium 100 mg oral capsule 1 capsule = 100 mg, By Mouth, 2 times a day, PRN as needed for constipation, # 100 capsule, 2 Refills, Maintenance, 08/17/20 14:09:00 EDT, Capsule, [facility], Partial fill upon patient request if [...] opioid drug. Start Date: 08/17/20 Status: Ordered Flomax 0.4 mg oral capsule 0.4 mg, 1, capsule, By Mouth, Daily, # 30 capsule, Refills 5, Tot. Refills 5, Maintenance, 04/27/2113:59:00 EST, Route to Pharmacy Electronically, [facility], 174, cm, 03/01/20 11:26:00 EST, Height, 57, kg, 03/19/19 14:07:00 EST, Dry Weight Start Date: 04/27/20 Status: Ordered fluticasone 50 mcg/inh nasal spray See Instructions, INSTILL 1 SPRAY INTO EACH NOSTRIL TWICE DAILY, # 16 Gm, 2 Refills, 08/24/20 15:55:00 EDT, [facility], 30, INSTILL 1 SPRAY INTO EACH [...] 1 Refills, Maintenance, 08/17/20 14:11:00 EDT, Capsule, [facility], Partial fill upon patient request if the prescription is for a scheduleII opioid drug., 174, cm, 08/17/20 13:45:00 EDT, He... Start Date: 08/17/20 Status: Ordered losartan 100 mg oral tablet 1 tablet, By Mouth, Daily, # 30 tablet, 11 Refills, Maintenance, 07/12/20 14:44:00 EDT, [facility], 174, cm, 07/12/20 14:32:00 EDT, Height, 57, kg, 03/19/19 14:07:00 EST, Dry Weight Start Date: 07/12/20 Status: Ordered metoprolol 50 mg oral tablet, extended release 50 mg, 1, tablet, By Mouth, Daily, do not crush or chew, # 30 tablet, Refills 11, Tot. Refills 11, Maintenance, 07/12/20 14:44:00 EDT, Route to Pharmacy Electronically, [facility], 174, cm,07/12/20 14:32:00 EDT, Height, 57, kg, 03/19/19 14:... Start Date: 07/12/20 Status: Ordered Nasacort Allergy 24HR 55 mcg/inh nasal spray 2 sprays, Nares, Both, Daily, # 3 each, 0 Refills, Maintenance, 01/08/20 14:50:00 EDT, [facility], 2 sprays Nares, Both Daily, 174, cm, 01/08/20 14:29:00 EDT, Height, 57, kg, 03/19/19 14:07:00 EST, Dry Weight Start Date: 01/08/20 Status: Ordered nicotine 4 mg oral transmucosal lozenge 1 lozenge = 4 mg, By Mouth, Every hour, # 189 lozenge, 11 Refills, Maintenance, 07/12/20 14:49:00 EDT, [facility], 1 lozenge By Mouth Every hour, 174, cm, 07/12/20 14:32:00 EDT, Height, 57,kg, 03/19/19 14:07:00 EST, Dry Weight Start Date: 07/12/20 Status: Ordered omeprazole 20 mg oral enteric coated capsule 1 capsule, By Mouth, Daily, # 14 capsule, 0 Refills, Maintenance, 07/05/20 8:06:00 EDT, [facility], 174, cm, 06/22/20 14:37:00 EST, Height, 57, kg, 03/19/19 14:07:00 EST, Dry Weight Start Date: 07/05/20 Stop Date: 07/19/20 Status: Ordered pravastatin 40 mg oral tablet 1 tablet = 40 mg, By Mouth, Daily, # 90 tablet, 1 Refills, Maintenance, 08/24/20 15:56:00 EDT, Tablet, [facility], 174, cm, 08/17/20 13:45:00 EDT, Height, 57, kg, 03/19/19 14:07:00 EST, DryWeight Start Date: 08/24/20 Status: Ordered Remeron 15 mg oral tablet 1 tablet = 15 mg, By Mouth, Daily at bedtime, REPLACES ZOLOFT, # 30 tablet, 1 Refills, Maintenance,06/22/20 15:13:00 EST, Tablet, [facility], Partial fill upon patient request if the prescription is for a schedule II opioid drug., 174, cm,... Start Date: 06/22/20 Status: Ordered Singulair 10 mg oral tablet 10 mg, 1, tablet, By Mouth, Daily at bedtime, PER ARPIT DUNN, # 30 tablet, Refills 5, Tot. Refills 5, Maintenance, 05/05/20 13:42:00 EST, Route to Pharmacy Electronically, [facility], 174, cm, 03/01/20 11:26:00 EST, Height, 57, kg, 12... Start Date: 05/05/20 Status: Ordered Spiriva Respimat 1.25 mcg/inh inhalation aerosol 2 puffs, Inhalation, Daily, # 4 Gm, 11 Refills, Maintenance, 05/25/20 13:51:00 EST, Aerosol, [facility], Partial fill upon patient request if the prescription is for a schedule II opioid drug., 174, cm, 05/07/20 10:13:00 EST, Height, 57, kg,... Start Date: 05/25/20 Status: Ordered Symbicort 160mcg/4.5mcg Inhaler 2, puffs, Inhalation, 2 times a day, # 1 each, Refills 11, Tot. Refills 11, Maintenance, 05/25/20 13:51:00 EST, Aerosol, Route to Pharmacy Electronically, [id number], [facility], 174,cm, 05/07/20 10:13:00 EST, Height, 57, kg, 03/19/19... Start Date: 05/25/20 Status: Ordered traZODone 50 mg oral tablet 100 mg, 2, tablet, By Mouth, Daily at bedtime, # 60 tablet, Refills 11, Tot. Refills 11, Maintenance, 07/12/20 14:43:00 EDT, Route to Pharmacy Electronically, [facility], 174, cm, 07/12/20 14:32:00 EDT, Height, 57, kg, 03/19/19 14:07:00 EST,... Start Date: 07/12/20 Status: Ordered Tylenol Extra Strength 500 mg oral tablet See Instructions, PRN for pain, 1 or 2 tablet By Mouth 3 times a day PER DR TRISTAN, # 100 tablet, 11 Refills, Maintenance, 06/08/20 10:22:00 EST, Tablet, [facility], 174, cm, 06/08/20 9:48:00 EST, Height, 57, kg, 03/19/19 14:07:00 EST, Dry Weight Start Date: 06/08/20 Status: Ordered ZyrTEC 10 mg oral tablet 1 tablet = 10 mg, By Mouth, Daily, # 30 tablet, 5 Refills, Maintenance, 03/08/20 8:02:00 EST, Tablet, [facility], 174, cm, 03/01/20 11:26:00 EST, Height, [...]
--- OUTSIDE RECORDS SUMMARY | 2022-09-19 20:53 | XMS_ITS | Continuity of Care Document ---
Author Name Unknown Organization [facility] Address [address] [place] [address]- Care Team Providers Care Watchstander Name Role Phone Mike Kruse MD Primary Care Physician [place] [facility] [place]22 [facility] Adult [address] [place] [address]- Attending Physician: Rachell Shannon NP Referring Physician: Mike Kruse MD Allergies, Adverse Reactions, Alerts Substance Reaction Severity Status lisinopril Atenolol Trisha norvegensis Active cloNIDine Active Immunizations Given and Recorded Vaccine Date Status Refusal Reason [id number] 12y+ bivalent booster vax 1 01/20/22 Given [...] Given tetanus/diphtheria/pertussis, acel(Tdap) 04/01/09 Recorded 1Result Comment: [facility] [id number] 2Location History: [facility] 3Result Comment: [11/22/2016] [facility] 4Result Comment: [03/20/2016] [facility] Medications acetaminophen 325 mg oral tablet 650 mg, 2, tablet, By Mouth, Every 4 hours, PRN, # 30 tablet, Refills 0, Tot. Refills 0, Maintenance, Pain , Mild, 02/21/22 15:17:00 EST, Route to Pharmacy Electronically, [facility], Partial fill upon patient request if the prescription... Start Date: 02/21/22 Status: Ordered amLODIPine 5 mg oral tablet 1 tablet, By Mouth, Daily, # 90 tablet, 1 Refills, Maintenance, 02/09/22 12:58:00 EDT, [id number], 163, cm, 02/07/22 18:18:00 EDT, Height, 60, kg, 02/07/22 15:54:00 EDT, Dry Weight Start Date: 02/09/22 Status: Ordered Aspirin Low Dose 81 mg oral delayed release tablet 1 tablet, By Mouth, Daily, # 30 tablet, 11 Refills, 10/19/21 9:10:00 EDT, [facility] #[id number], 180, cm, 09/26/21 10:49:00 EDT, [...] 11 Refills, Maintenance, 04/25/22 10:31:00 EST, Tablet, [id number], Partial fill upon patient request if the prescription is for a schedule II opioid drug., 163, cm, 03/30/22 10:35:00 EST, Height, 60, kg,... Start Date: 04/25/22 Status: Ordered clopidogrel 75 mg oral tablet 1, tablet, By Mouth, Daily, # 90 tablet, Refills 1, Maintenance, 05/09/22 14:00:00 EST, Route to Pharmacy Electronically, [id number], 163, cm, 03/30/22 10:35:00 EST, Height, 60, kg, 02/07/22 15:54:00 EDT, Dry Weight Start Date: 05/09/22 Status: Ordered fluticasone 50 mcg/inh nasal spray See Instructions, SPRAY 1 SPRAY INTO EACH NOSTRIL TWICE A DAY, # 48 mL, 1 Refills, Maintenance, 04/25/22 18:01:00 EST, [facility]acy #[id number], 90, SPRAY 1 SPRAY INTO EACH NOSTRIL TWICE A DAY, 163, cm, 03/30/22 10:35:00 EST, Height, 60, kg, 02/07/22 15:54:... Start Date: 04/25/22 Status: Ordered guaiFENesin 400 mg oral tablet 1 tablet = 400 mg, By Mouth, 4 times a day, # 120 tablet, 5 Refills, Maintenance, 10/28/21 14:19:00EDT, Tablet, [facility]acy #1230, 165, cm, 10/28/21 4:51:00 EDT, [...] tablet, 3 Refills, Maintenance, 04/26/22 9:42:00 EST, [id number], 163, cm, 03/30/22 10:35:00 EST, Height, 60, kg, 02/07/22 15:54:00 EDT, Dry Weight Start Date: 04/26/22 Status: Ordered magnesium oxide 400 mg oral tablet 1 tablet, By Mouth, Daily, # 30 tablet, 6 Refills, Maintenance, 10/19/21 9:10:00 EDT, [facility]acy #1230, 180, cm, 09/26/21 10:49:00 EDT, Height, 77, kg, 04/20/21 15:47:00 EST, Dry Weight Start Date: 10/19/21 Stop Date: 10/19/21 Status: Ordered Metoprolol Succinate ER 50 mg oral tablet, extended release See Instructions, 1 TABLET BY MOUTH DAILY,INSTR:INSTR:DO NOT CRUSH OR CHEW, # 90 tablet, 1 Refills,Maintenance, 04/25/22 18:03:00 EST, [facility]acy #[id number], 163, cm, 03/30/22 10:35:00 EST, Height, 60,kg, 02/07/22 15:54:00 EDT, Dry Weight Start Date: 04/25/22 Status: Ordered MiraLax oral powder for reconstitution = 17 Gm, By Mouth, 2 times a day, dissolve in water before taking, # 527 Gm, 11 Refills, Maintenance, 10/19/21 9:10:00 EDT, REC Powder, [facility]/pharmacy #1230, Partial fill upon patient request if the prescription is for a schedule II opioid drug., 17 Gm... Start Date: 10/19/21 Status: Ordered montelukast 10 mg oral tablet See Instructions, TAKE 1 TABLET BY MOUTH EVERY DAY AT BEDTIME, # 30 tablet, Refills 11, Tot. Refills 11, Maintenance, 01/20/22 14:03:00 EDT, Instructions Replace Required Details, Route to Pharmacy Electronically, [facility] #1230, 162, cm, 01/20/22... Start Date: 01/20/22 Status: Ordered Neurontin 100 mg oral capsule 100 mg, 1, capsule, By Mouth, 3 times a day, # 90 capsule, Refills 2, Tot. Refills 2, Maintenance, 03/15/22 15:34:00 EST, Route to Pharmacy Electronically, [facility]acy #[id number], Partial fill upon patient request if the prescription is for a schedule II... Start Date: 03/15/22 Status: Ordered omeprazole 20 mg oral delayed release tablet 1 tablet = 20 mg, By Mouth, Daily, # 30 tablet, 11 Refills, Maintenance, 07/10/22 15:48:00 EDT, CR Tablet, [facility] #1230, Partial fill upon patient request [...] 02/21/22 15:17:00 EST, Route to Pharmacy Electronically, [facility], Partial fill upon patient request if the prescription... Start Date: 02/21/22 Status: Ordered pantoprazole 20 mg oral delayed release tablet 1 tablet = 20 mg, By Mouth, Daily, # 30 tablet, 11 Refills, Maintenance, 03/15/22 15:30:00 EST, 163, cm, 03/15/22 15:16:00 EST, Height, 60, kg, 02/07/22 15:54:00 EDT, Dry Weight Start Date: 03/15/22 Status: Ordered pravastatin 40 mg oral tablet 1 tablet, By Mouth, Daily, # 90 tablet, 1 Refills, Maintenance, 05/28/22 10:29:00 EST, [facility], 163, cm, 03/30/22 10:35:00 EST, Height, 60, kg, 02/07/22 15:54:00 EDT, Dry Weight Start Date: 05/28/22 Status: Ordered riboflavin 400 mg oral capsule 1 capsule = 400 mg, By Mouth, Daily, # 30 capsule, 5 Refills, Maintenance, 06/01/22 12:01:00 EST, [facility]/pharmacy #[id number], Partial fill upon patient request if the prescription is for a schedule II opioiddrug., 163, cm, 03/30/22 10:35:00 EST, Height, 60,... Start Date: 06/01/22 Status: Ordered SEROquel 25 mg oral tablet 25 mg, 1, tablet, By Mouth, Daily at bedtime, # 30 tablet, Refills 5, Tot. Refills 5, Maintenance, 10/28/21 14:23:00 EDT, Route to Pharmacy Electronically, [facility] #1230, 165, cm, 10/28/21 4:51:00 EDT, Height, 60.5, kg, 10/26/21 13:16:00 EDT, Dry... Start Date: 10/28/21 Status: Ordered Spiriva Respimat 1.25 mcg/inh inhalation aerosol 2 puffs, Inhalation, Daily, # 4 mL, 3 Refills, Maintenance, 06/28/22 8:12:00 EDT, [id number], 163, cm, 06/02/22 12:59:00 EST, Height, 60, kg, 02/07/22 15:54:00 EDT, Dry Weight Start Date: 06/28/22 Status: Ordered Symbicort 160mcg/4.5mcg Inhaler 2, puffs, Inhalation, 2 times a day, # 10.2 Gm, Refills 10, Tot. Refills 10, 10/19/21 9:10:00 EDT, Route to Pharmacy Electronically, [id number], [facility]/pharmacy #1230, 180, cm,09/26/21 10:49:00 EDT, Height, 77, kg, 04/20/21 15:... Start Date: 10/19/21 Status: Ordered tamsulosin 0.4 mg oral capsule 1, capsule, By Mouth, Daily, # 30 capsule, Refills 11, Tot. Refills 11, Maintenance, 04/25/22 9:53:00 EST, Route to Pharmacy Electronically, [facility]/pharmacy #[id number], 163, cm, 03/30/22 10:35:00 EST, Height, 60, kg, 02/07/22 15:54:00 EDT, Dry Weight Start Date: 04/25/22 Status: Ordered traZODone 50 mg oral tablet 2, tablet, By Mouth, Daily at bedtime, # 60 tablet, Refills 3, Maintenance, 06/28/22 8:12:00 EDT, Route to Pharmacy Electronically, [id number], 163, cm, 06/02/22 12:59:00 EST, Height, 60, kg, 02/07/22 15:54:00 EDT, Dry Weight Start Date: 06/28/22 Status: Ordered venlafaxine 37.5 mg oral capsule, extended release 1 capsule, By Mouth, Daily, # 30 capsule, 1 Refills, Maintenance, 05/29/22 11:48:00 EST, [facility], 163, cm, 03/30/22 10:35:00 EST, Height, 60, kg, 02/07/22 15:54:00 EDT, Dry Weight Start Date: 05/29/22 Status: Ordered Ventolin HFA 108 mcg/inh inhalation aerosol with adapter 2 puffs, Inhalation, Every 4 hours, PRN NEEDED FOR WHEEZING, # 18 each, 11 Refills, Maintenance,04/26/22 9:42:00 EST, [facility], 163, cm, 03/30/22 10:35:00 EST, Height, 60, [...] Active Frequent urination at night Confirmed Active Left leg pain Confirmed Active PVD (peripheral vascular disease) Confirmed Active PND (post-nasal drip) Confirmed Active Chronic pain in shoulder Confirmed Active Tobacco abuse Confirmed Active 1colo 2017 2IMPRESSION: 1. Severe emphysema. [...] Team Personnel Name: Ana West RN Position: [facility] RN Member Role: Primary Care Nurse Name: Odalys Orozco RN Position: [facility] RN Member Role: Primary Care Nurse Name: Mike Kruse MD Position: [facility] Primary Care Physician Member Role: PCP Address: Address: [address] [place] [address] Name: Maryam Valenzuela RN Position: [facility] RN Member Role: Primary Care Nurse Name: Deandre Lara LPN Position: [facility] RN Member Role: Primary Care Nurse Name: Hayden Queen RN Position: [facility] RN Member Role: Primary Care Nurse Name: Aruna Winkler RN Position: [facility] RN Member Role: Primary Care Nurse Name: Sabrina Hare RN Position: [facility] RN Member Role: Primary Care Nurse Name: Kristyn Olivo RN Position: [facility] RN Member Role: Primary Care Nurse Name: Marguerite Florentino RN Position: [facility] RN Member Role: Primary Care Nurse Care Team Related Persons Name: ENA SOTO Address: home [address] [place] [address] Name: ELISA TOMPKINS Address: [place] [address] Name: JOSE RAFAEL LI
--- OUTSIDE RECORDS SUMMARY | 2022-09-19 20:53 | XMS_ITS | Continuity of Care Document ---
Author Name Unknown Organization [facility] lt Address [address] [place] [address]- Care Team Providers Care Aviation Consultant Name Role Phone Mike Tristan MD Primary Care Physician [phone] [place] [facility] [place] [facility] Adult [address] [place] [address]- Attending Physician: Julia HOOD, Aisha Hardy Referring Physician: Mike Tristan MD Allergies, Adverse [...] 05/05/20 13:45:00 EST, Route to Pharmacy Electronically, [facility], 174, cm, 03/01/20 11:26:00 EST, Height, 57, kg, 03/19/19 14:07:00 EST, Dry Weight Start Date: 05/05/20 Status: Ordered aspirin 81 mg oral tablet 1 tablet = 81 mg, By Mouth, Daily, PER DR TRISTAN, # 30 tablet, 5 Refills, Maintenance, 10/13/19 13:42:00 EDT, Tablet, [facility], 174, cm, 10/01/19 13:58:00 EDT, Height, 57, kg, 03/19/19 14:07:00 EST, Dry Weight Start Date: 10/13/19 Status: Ordered Combivent Respimat 20 mcg-100 mcg/inh inhalation aerosol 1 puffs, Inhalation, 4 times a day, PRN NEEDED FOR WHEEZING OR SHORTNESS OF BREATH, # 4 Gm, 11 Refills, Maintenance, 05/07/20 10:33:00 EST, [facility], 30, 1 puffs Inhalation 4 times a day,PRN: NEEDED FOR WHEEZING OR SHORTNESS OF BREATH... Start Date: 05/07/20 Status: Ordered docusate sodium 100 mg oral capsule 1 capsule = 100 mg, By Mouth, 2 times a day, PRN as needed for constipation, # 100 capsule, 2 Refills, Maintenance, 08/17/20 14:09:00 EDT, Capsule, [facility], Partial fill upon patient request [...] 16 Gm, 2 Refills, 08/24/20 15:55:00 EDT, [facility], 30, INSTILL 1 SPRAY INTO EACH [...] Daily, # 40 capsule, 1 Refills, Maintenance, 11/16/20 11:14:00 EDT, Capsule, [facility], Partial fill upon patient request if the prescription is for a scheduleII opioid drug., 174, cm, 10/22/20 15:16:00 EDT, He... Start Date: 11/16/20 Status: Ordered losartan 100 mg oral tablet 1 tablet, By Mouth, Daily, # 30 tablet, 11 Refills, Maintenance, 07/12/20 14:44:00 EDT, [facility], 174, cm, 07/12/20 14:32:00 EDT, Height, 57, kg, 03/19/19 14:07:00 EST, Dry Weight Start Date: 07/12/20 Status: Ordered metoprolol 50 mg oral tablet, extended release 50 mg, 1, tablet, By Mouth, Daily, do not crush or chew, # 30 tablet, Refills 11, Tot. Refills 11, Maintenance, 07/12/20 14:44:00 EDT, Route to Pharmacy Electronically, [facility], 174, cm,07/12/20 14:32:00 EDT, Height, 57, kg, 03/19/19 14:... Start Date: 07/12/20 Status: Ordered montelukast 10 mg oral tablet 1, tablet, By Mouth, Daily at bedtime, # 30 tablet, Refills 4, Tot. Refills 0, Maintenance, 10/20/20 11:07:00 EDT, Route to Pharmacy Electronically, [facility], 174, cm, 09/14/20 14:37:00 EDT, Height, 57, kg, 03/19/19 14:07:00 EST, Dry Weight Start Date: 10/20/20 Status: Ordered Nasacort Allergy 24HR 55 mcg/inh nasal spray 2 sprays, Nares, Both, Daily, # 3 each, 0 Refills, Maintenance, 01/08/20 14:50:00 EDT, [facility], 2 sprays Nares, Both Daily, 174, cm, 01/08/20 14:29:00 EDT, Height, 57, kg, 03/19/19 14:07:00 EST, Dry Weight Start Date: 01/08/20 Status: Ordered nicotine 4 mg oral transmucosal lozenge 1 lozenge = 4 mg, By Mouth, Every hour, # 189 lozenge, 11 Refills, Maintenance, 07/12/20 14:49:00 EDT, [facility], 1 lozenge By Mouth Every hour, 174, cm, 07/12/20 14:32:00 EDT, Height, 57,kg, 03/19/19 14:07:00 EST, Dry Weight Start Date: 07/12/20 Status: Ordered omeprazole 20 mg oral enteric coated capsule 1 capsule, By Mouth, Daily, # 14 capsule, 0 Refills, Maintenance, 07/05/20 8:06:00 EDT, [facility], 174, cm, 06/22/20 14:37:00 EST, Height, 57, kg, 03/19/19 14:07:00 EST, Dry Weight Start Date: 07/05/20 Stop Date: 07/19/20 Status: Ordered pravastatin 40 mg oral tablet 1 tablet = 40 mg, By Mouth, Daily, # 90 tablet, 1 Refills, Maintenance, 08/24/20 15:56:00 EDT, Tablet, [facility], 174, cm, 08/17/20 13:45:00 EDT, Height, 57, kg, 03/19/19 14:07:00 EST, DryWeight Start Date: 08/24/20 Status: Ordered Remeron 15 mg oral tablet 1 tablet = 15 mg, By Mouth, Daily at bedtime, REPLACES ZOLOFT, # 30 tablet, 1 Refills, Maintenance,06/22/20 15:13:00 EST, Tablet, [facility], Partial fill upon patient request if the prescription is for a schedule II opioid drug., 174, cm,... Start Date: 06/22/20 Status: Ordered Spiriva Respimat 1.25 mcg/inh inhalation aerosol 2 puffs, Inhalation, Daily, # 4 Gm, 11 Refills, Maintenance, 05/25/20 13:51:00 EST, Aerosol, [facility], Partial fill upon patient request if the prescription is for a schedule II opioid drug., 174, cm, 05/07/20 10:13:00 EST, Height, 57, kg,... Start Date: 05/25/20 Status: Ordered Symbicort 160mcg/4.5mcg Inhaler 2, puffs, Inhalation, 2 times a day, # 1 each, Refills 11, Tot. Refills 11, Maintenance, 05/25/20 13:51:00 EST, Aerosol, Route to Pharmacy Electronically, [id number], [facility], 174,cm, 05/07/20 10:13:00 EST, Height, 57, kg, 03/19/19... Start Date: 05/25/20 Status: Ordered tamsulosin 0.4 mg oral capsule 1, capsule, By Mouth, Daily, # 30 capsule, Refills 4, Tot. Refills 0, Maintenance, 10/20/20 11:06:00 EDT, Route to Pharmacy Electronically, [facility], 174, cm, 09/14/20 14:37:00 EDT, Height, 57, kg, 03/19/19 14:07:00 EST, Dry Weight Start Date: 10/20/20 Status: Ordered traZODone 50 mg oral tablet 100 mg, 2, tablet, By Mouth, Daily at bedtime, # 60 tablet, Refills 11, Tot. Refills 11, Maintenance, 07/12/20 14:43:00 EDT, Route to Pharmacy Electronically, [facility], 174, cm, 07/12/20 14:32:00 EDT, Height, 57, kg, 03/19/19 14:07:00 EST,... Start Date: 07/12/20 Status: Ordered Tylenol Extra Strength 500 mg oral tablet See Instructions, PRN for pain, 1 or 2 tablet By Mouth 3 times a day PER DR TRISTAN, # 100 tablet, 11 Refills, Maintenance, 06/08/20 10:22:00 EST, Tablet, [facility], 174, cm, 06/08/20 9:48:00 EST, Height, 57, kg, 03/19/19 14:07:00 EST, Dry Weight Start Date: 06/08/20 Status: Ordered ZyrTEC 10 mg oral tablet 1 tablet = 10 mg, By Mouth, Daily, # 30 tablet, 5 Refills, Maintenance, 03/08/20 8:02:00 EST, Tablet, [facility], 174, cm, 03/01/20 11:26:00 EST, Height, [...]
--- OUTSIDE RECORDS SUMMARY | 2022-09-19 20:54 | XMS_ITS | Continuity of Care Document ---
Author Name Unknown Organization [facility] ter Address [address] [place] [address]- Care Team Providers Care Parts Order And Stock Clerk Name Role Phone Mike Kruse MD Primary Care Physician [phone] Encounter [facility] Date(s): 11/16/21 - 12/16/[address] [address] Attending Physician: Not on Staff, Attending MD Admitting Physician: Not on Staff, Admitting MD Referring Physician: Not on Staff, Referring MD Allergies, Adverse Reactions, Alerts Substance Reaction [...] 5 Refills, Maintenance, 10/28/21 14:18:00 EDT, Solution, [facility]/pharmacy #1230, 165, cm, 10/28/21 4:51:00 EDT, Height, 60.5, kg, 10/26/21 13:16:00 EDT, Dry Weight Start Date: 10/28/21 Status: Ordered amLODIPine 5 mg oral tablet 5 mg, 1, tablet, By Mouth, Daily, # 90 tablet, Refills 1, Tot. Refills 1, Soft Stop, 10/19/21 9:10:00 EDT, Route to Pharmacy Electronically, [facility]/pharmacy #1230, 180, cm, 09/26/21 10:49:00 EDT, Height, 77, kg, 04/20/21 15:47:00 EST, Dry Weight Start Date: 10/19/21 Status: Ordered Aspirin Low Dose 81 mg oral delayed release tablet 1 tablet, By Mouth, Daily, # 30 tablet, 11 Refills, 10/19/21 9:10:00 EDT, [facility]/pharmacy #1230, 180, cm, 09/26/21 10:49:00 EDT, [...] 16 Gm, 5 Refills, 10/19/21 9:10:00 EDT, [facility]/pharmacy #1230, 30, USE 1 SPRAY IN EACH NOSTRIL TWICE A DAY, 180, cm, 09/26/21 10:49:00 EDT, Height, 77, kg, 04/20/21 15:47:00 EST, Dry Weight Start Date: 10/19/21 Status: Ordered guaiFENesin 400 mg oral tablet 1 tablet = 400 mg, By Mouth, 4 times a day, # 120 tablet, 5 Refills, Maintenance, 10/28/21 14:19:00EDT, Tablet, [facility]/pharmacy #1230, 165, cm, 10/28/21 4:51:00 EDT, [...] tablet, 5 Refills, Maintenance, 10/19/21 9:10:00 EDT, [facility]/pharmacy #1230, 180, cm, 09/26/21 10:49:00 EDT, Height, 77, kg, 04/20/21 15:47:00 EST, Dry Weight Start Date: 10/19/21 Status: Ordered magnesium oxide 400 mg oral tablet 1 tablet, By Mouth, Daily, # 30 tablet, 6 Refills, Maintenance, 10/19/21 9:10:00 EDT, [facility]/pharmacy #1230, 180, cm, 09/26/21 10:49:00 EDT, Height, 77, kg, 04/20/21 15:47:00 EST, Dry Weight Start Date: 10/19/21 Stop Date: 10/19/21 Status: Ordered Metoprolol Succinate ER 50 mg oral tablet, extended release 1 tablet, By Mouth, Daily, INSTR:DO NOT CRUSH OR CHEW, # 30 tablet, 5 Refills, 10/19/21 9:10:00 EDT, [facility]/pharmacy #1230, 180, cm, 09/26/21 10:49:00 EDT, Height, 77, kg, 04/20/21 15:47:00 EST, Dry Weight Start Date: 10/19/21 Status: Ordered MiraLax oral powder for reconstitution = 17 Gm, By Mouth, 2 times a day, dissolve in water before taking, # 527 Gm, 11 Refills, Maintenance, 10/19/21 9:10:00 EDT, REC Powder, [facility]/pharmacy #1230, Partial fill upon patient request if the prescription is for a schedule II opioid drug., 17 Gm... Start Date: 10/19/21 Status: Ordered montelukast 10 mg oral tablet 1, tablet, By Mouth, Daily at bedtime, # 30 tablet, Refills 5, Tot. Refills 5, 10/19/21 9:10:00 EDT, Route to Pharmacy Electronically, [facility]/pharmacy #1230, 180, cm, 09/26/21 10:49:00 EDT, Height, 77, kg, 04/20/21 15:47:00 EST, Dry Weight Start Date: 10/19/21 Status: Ordered omeprazole 20 mg oral delayed release tablet 1 tablet = 20 mg, By Mouth, Daily, # 30 tablet, 11 Refills, Maintenance, 07/10/22 15:48:00 EDT, CR Tablet, [facility]/pharmacy #1230, Partial fill upon patient request if the prescription is for a schedule II opioid drug., 180, cm, 09/26/21 10:49:00 EDT, Hei... Start Date: 07/10/22 Stop Date: 07/05/23 Status: Ordered Plavix 75 mg oral tablet 75 mg, 1, tablet, By Mouth, Daily, # 90 tablet, Refills 1, Tot. Refills 1, Maintenance, 11/18/21 16:53:00 EDT, Route to Pharmacy Electronically, [facility]/pharmacy #1230, Partial fill upon patient request if the prescription is for a schedule II opioid drug... Start Date: 11/18/21 Status: Ordered pravastatin 40 mg oral tablet 1 tablet = 40 mg, By Mouth, Daily, # 90 tablet, 1 Refills, Maintenance, 10/19/21 9:10:00 EDT, Tablet, [facility]/pharmacy #1230, 180, cm, 09/26/21 10:49:00 EDT, [...] 0 Refills, Maintenance, 12/13/21 12:37:00 EDT, Tablet, [facility] Start Date: 12/13/21 Status: Ordered ProAir HFA [...] 12/13/21 12:40:00 EDT, Route to Pharmacy Electronically, [id number], [facility] 3,162, cm, 12/13/21 4:46:00 EDT, Height, 60.3, kg, 08... Start Date: 12/13/21 Status: Ordered riboflavin 400 mg oral capsule 1 capsule = 400 mg, By Mouth, Daily, # 30 capsule, 5 Refills, Maintenance, 10/19/21 9:10:00 EDT, [facility]/pharmacy #1230, Partial fill upon patient request if the prescription is for a schedule II opioid drug., 180, cm, 09/26/21 10:49:00 EDT, Height, 77, k... Start Date: 10/19/21 Status: Ordered SEROquel 25 mg oral tablet 25 mg, 1, tablet, By Mouth, Daily at bedtime, # 30 tablet, Refills 5, Tot. Refills 5, Maintenance, 10/28/21 14:23:00 EDT, [facility] 165, cm, 10/28/21 4:51:00 EDT, Height, 60.5, kg, 10/26/21 13:16:00 EDT, Dry... Start Date: 10/28/21 Status: Ordered Spiriva Respimat 1.25 mcg/inh inhalation aerosol 2 puffs, Inhalation, Daily, # 4 Gm, 5 Refills, 10/19/21 9:10:00 EDT, [facility]/pharmacy #1230, 180, cm, 09/26/21 10:49:00 EDT, Height, 77, kg, 04/20/21 15:47:00 EST, Dry Weight Start Date: 10/19/21 Status: Ordered Symbicort 160mcg/4.5mcg Inhaler 2, puffs, Inhalation, 2 times a day, # 10.2 Gm, Refills 10, Tot. Refills 10, 10/19/21 9:10:00 EDT, Route to Pharmacy Electronically, [id number], [facility], 180, cm,09/26/21 10:49:00 EDT, Height, 77, kg, 04/20/21 15:... Start Date: 10/19/21 Status: Ordered tamsulosin 0.4 mg oral capsule 1, capsule, By Mouth, Daily, # 30 capsule, Refills 4, Tot. Refills 4, Maintenance, 10/19/21 9:10:00EDT, Route to Pharmacy Electronically, [facility]/pharmacy #1230, 180, cm, 09/26/21 10:49:00 EDT, Height, 77, kg, 04/20/21 15:47:00 EST, Dry Weight Start Date: 10/19/21 Status: Ordered venlafaxine 37.5 mg oral capsule, extended release 37.5 mg, 1, capsule, By Mouth, Daily, # 30 capsule, Refills 1, Tot. Refills 1, Maintenance, 10/19/21 9:10:00 EDT, [facility] Partial fill upon patient request [...] Team Personnel Name: Mike Kruse MD Address: [address] [place] [id number]-
--- OUTSIDE RECORDS SUMMARY | 2022-09-19 20:54 | XMS_ITS | Continuity of Care Document ---
Author Name Unknown Organization [facility] Trevor lt Address [address] [place] [address]- Care Team Providers Care Tourist Information Assistant Name Role Phone Mike Tristan MD Primary Care Physician [phone] Encounter [facility] Date(s): 02/13/20 - 02/20/20 [facility] Adult [address] [place] [address]- Encounter Diagnosis Tobacco abuse(Discharge Diagnosis) - 02/13/20 Attending Physician: Mirtha HOOD, Rachell Bennett Allergies, [...] 12:49:00 EDT, Aerosol, Route to Pharmacy Electronically, [id number]_[id number], [facility], 174, cm, 10/01/19 13:58:00 EDT, Height, 57, kg, 04... Start Date: 11/17/19 Status: Ordered amLODIPine 5 mg oral tablet 5 mg, 1, tablet, By Mouth, Daily, # 90 tablet, Refills 3, Tot. Refills 3, Soft Stop, 02/10/19 13:40:35 EDT, Route to Pharmacy Electronically, NCPDP_[id number], [facility] - [address] [place] [address] Start Date: 02/10/19 Stop Date: 06/10/19 Status: Ordered aspirin 81 mg oral tablet 1 tablet = 81 mg, By Mouth, Daily, PER DR TRISTAN, # 30 tablet, 5 Refills, Maintenance, 10/13/19 13:42:00 EDT, Tablet, [facility], 174, cm, 10/01/19 13:58:00 EDT, Height, 57, kg, 03/19/19 14:07:00 EST, Dry Weight Start Date: 10/13/19 Status: Ordered Chantix Starter Pack 0.5 mg-1 mg oral tablet 1 tablet, By Mouth, 2 times a day, as directed on package labeling, # 53 tablet, 0 Refills, Maintenance, 02/13/20 14:46:00 EDT, Tablet, [facility], 1 tablet By Mouth 2 times a day,Instr:as directed on package labeling, 174, cm, 02/13/20 14:1... Start Date: 02/13/20 Status: Ordered Combivent Respimat 20 mcg-100 mcg/inh inhalation aerosol 1 puffs, Inhalation, 4 times a day, PRN Wheezing/Shortness of Breath, # 1 each, 0 Refills, Maintenance, 06/12/19 8:06:00 EST, Aerosol, [facility], 1 puffs Inhalation 4 times a [...] Maintenance, 10/12/2012:42:00 EDT, Route to Pharmacy Electronically, [facility], 174, cm, 10/01/19 13:58:00 EDT, Height, [...] 10/14/19 8:46:00 EDT, Route to Pharmacy Electronically, [facility], 174, cm, 10/01/19 13:58:00 EDT, Height, 57, kg, 03/19/19 14:07:... Start Date: 10/14/19 Status: Ordered Nasacort Allergy 24HR 55 mcg/inh nasal spray 2 sprays, Nares, Both, Daily, # 3 each, 0 Refills, Maintenance, 01/08/20 14:50:00 EDT, [facility], 2 sprays Nares, Both Daily, 174, [...] 10/13/19 13:42:00 EDT, Route to Pharmacy Electronically, [facility], 174, cm, 10/01/19 13:58:00 EDT, Height, 57, kg, 12... Start Date: 10/13/19 Status: Ordered Spiriva HandiHaler 18 mcg inhalation capsule 1 capsule = 18 mcg, Inhalation, Daily, use two inhalations of one capsule for each dose, # 30 capsule, 5 Refills, Maintenance, 02/18/20 9:52:00 EST, [facility], 174, cm, 02/13/20 14:17:00 EDT, Height, 57, kg, 03/19/19 14:07:00 EST, Dry Weight Start Date: 02/18/20 Stop Date: 08/16/20 Status: Ordered traZODone 50 mg oral tablet 100 mg, 2, tablet, By Mouth, Daily at bedtime, # 60 tablet, Refills 5, Tot. Refills 5, Maintenance,01/06/20 15:12:00 EDT, Route to Pharmacy Electronically, [facility], 174, cm, 10/01/19 13:58:00 EDT, Height, 57, kg, 03/19/19 14:07:00 EST, D... Start Date: 01/06/20 Status: Ordered Tylenol Extra Strength 500 mg oral tablet See Instructions, PRN for pain, 1 or 2 tablet By Mouth 3 times a day PER DR TRISTAN, # 100 tablet, 11 Refills, Maintenance, 08/20/18 16:21:19 EDT, Tablet Start Date: 08/20/18 Status: Ordered ZyrTEC 10 mg oral tablet 1 tablet = 10 mg, By Mouth, Daily, # 30 tablet, 5 Refills, Maintenance, 01/06/20 15:11:00 EDT, Tablet, [facility], 174, cm, 10/01/19 13:58:00 EDT, Height, 57, kg, 03/19/19 14:07:00 EST, DryWeight Start Date: 01/06/20 Status: Ordered Problem List Condition Effective Dates [...] Diagnosis Type Effective Dates Health Status [facility] Service Informant Tobacco abuse Discharge Diagnosis 02/13/20 Vital Signs Most recent to oldest [Reference Range]: 1 Height 174 cm (02/13/20 2:17 PM) Social History Social History Type Response Smoking Status 5-9 cigarettes (betw een 1/4 to 1/2 pack)/day in last 30 days entered on: 05/26/19 Sex
--- OUTSIDE RECORDS SUMMARY | 2022-09-19 20:54 | XMS_ITS | Continuity of Care Document ---
Author Name Unknown Organization [facility] Trevor lt Address [address] [place] [address]- Care Team Providers Care Janitorial Account Manager Name Role Phone Mike Tristan MD Primary Care Physician [phone] Encounter [facility] Date(s): 05/26/19 - 06/02/19 [facility] Adult [address] [place] [address]- [facility] Encounter Diagnosis COPD, moderate(Discharge Diagnosis) - 05/26/19 HTN (hypertension)(Discharge Diagnosis) - 05/26/19 Hypercholesterolemia(Discharge Diagnosis) - 05/26/19 Tobacco abuse(Discharge Diagnosis) - 05/26/19 Cerebrovascular disease(Discharge Diagnosis) - 05/26/19 Attending Physician: Mike Tristan MD Allergies, Adverse Reactions, [...] 02/10/19 13:40:35 EDT, Route to Pharmacy Electronically, [id number], [facility] - [address] [facility] Start Date: 02/10/19 Stop Date: 06/10/19 Status: Ordered aspirin 81 mg oral tablet 1 tablet = 81 mg, By Mouth, Daily, PER DR TRISTAN, # 30 tablet, 5 Refills, Maintenance, 04/30/19 10:28:00 EST, Tablet, [facility], 174, cm, 03/19/19 14:40:00 EST, Height, 57, kg, 03/19/19 14:07:00 EST, Dry Weight Start Date: 04/30/19 Status: Ordered Combivent Respimat 20 mcg-100 mcg/inh inhalation aerosol 1 puffs, Inhalation, 4 times a day, PRN Wheezing/Shortness of Breath, # 1 each, 0 Refills, Maintenance, 03/19/19 15:31:15 EST, Aerosol, 1 puffs Inhalation 4 times a day,PRN:Wheezing/Shortness of Breath, 174, cm, 03/19/19 14:40:19 EST, Height, 57, kg,... Start Date: 03/19/19 Status: Ordered ENSURE CHOCOLATE ENSURE CHOCOLATE, See Instructions, # 1 box, Refills 0, Tot. Refills 0, Maintenance, drink 2 ensuredaily dx code: r63.0 R63.4 , 08/31/17 9:38:21 EDT, Compound Start Date: 08/31/17 Status: Ordered Flomax 0.4 mg oral capsule 0.4 mg, 1, capsule, By Mouth, Daily, # 30 capsule, Refills 5, Tot. Refills 5, Maintenance, 208:38:00 EST, Route to Pharmacy Electronically, [facility], 174, cm, 03/19/19 14:40:00 EST, Height, [...] tablet, Refills 2, Tot. Refills 2, Maintenance, 04/30/19 10:39:00 EST, Route to Pharmacy Electronically, [facility], 174, cm, 03/19/19 14:40:00 EST, Height, 57, kg, 03/19/19 14:07... Start Date: 04/30/19 Status: Ordered nicotine 4 mg oral transmucosal [...] 04/20/19 8:38:00 EST, Route to Pharmacy Electronically, [facility],174, cm, 03/19/19 14:40:00 EST, Height, 57, kg, 12/... Start Date: 04/20/19 Status: Ordered Spiriva HandiHaler 18 mcg Inhalation Capsule 1 capsule = 18 mcg, Inhalation, Daily, # 30 capsule, 5 Refills, Maintenance, 10/08/18 10:46:31 EDT,1 capsule Inhalation Daily Start Date: 10/08/18 Status: Ordered traZODone 50 mg oral tablet 100 mg, 2, tablet, By Mouth, Daily at bedtime, # 60 tablet, Refills 2, Tot. Refills 2, Maintenance,04/30/19 10:39:00 EST, Route to Pharmacy Electronically, [facility], 174, cm, 03/19/19 14:40:00 EST, Height, [...] Daily, # 30 tablet, 5 Refills, Maintenance, 04/20/19 8:38:00 EST, Tablet, [facility], 174, cm, 03/19/19 14:40:00 EST, Height, 57, kg, 03/19/19 14:07:00 EST, Dry Weight Start Date: 04/20/19 Status: Ordered Problem List Condition Effective Dates [...] 09/03/16 Active Vertigo(Confirmed) Active Weight decreased(Confirmed) Active 1c2016 2Dr. Green 3IMPRESSION: 1. Severe [...] Effective Dates Health Status Clinical Service Informant COPD, moderate Discharge Diagnosis 05/26/19 HTN (hypertension) Discharge Diagnosis 05/26/19 Hypercholesterolemia Discharge Diagnosis 05/26/19 Tobacco abuse Discharge Diagnosis 05/26/19 Cerebrovascular disease Discharge Diagnosis 05/26/19 Vital Signs Most recent to oldest [Reference Range]: 1 Height 174 cm (05/26/19 2:06 PM) Weight 59.0 kg (05/26/19 2:06 PM) Oxygen Saturation [94-100 %] 98 % (05/26/19 2:06 PM) Pulse Rate [55-90 bpm] 78 bpm (05/26/19 2:06 PM) Body Mass Index [18.5-24.99] 19.49 (05/26/19 2:06 PM) Blood Pressure [90-138/55-84 mm Hg] 108/ 68mm Hg (05/26/19 2:06 PM) Mode of Delivery (Oxygen) Room air (05/26/19 2:06 PM) Blood pressure sites Arm, left (05/26/19 2:06 PM) Weight Obtained Via Standing scale (05/26/19 2:06 PM) Social History Social History Type Response Smoking Status 5-9 cigarettes (betw een 4 to 1/2 pack)/day in last 30 days entered on: 05/26/19 Sex
--- OUTSIDE RECORDS SUMMARY | 2022-09-19 20:54 | XMS_ITS | Continuity of Care Document ---
Author Name Unknown Organization [facility] Trevor Address [address] [place] [address]- Care Team Providers Care Batch Roller Operator Name Role Phone Aixa BERNABE, Mike Bennett Primary Care Physician [phone] [facility] Date[facility]s): 05/03/21 - 05/10/21 [facility] Adult [address] [place] [address]- Encounter Diagnosis COPD exacerbation(Discharge Diagnosis) - 05/03/21 Attending Physician: Not on Staff, Attending MD [...] 04/12/21 8:59:00 EST, Route to Pharmacy Electronically, [facility], 174, cm, 03/22/21 13:58:00 EST, Height Start Date: 04/12/21 Status: Ordered Aspirin Low Dose 81 mg oral delayed release tablet 1 tablet, By Mouth, Daily, # 30 tablet, 11 Refills, [facility], 180, cm, 05/03/21 9:32:00EST, Height, 77, kg, 04/20/21 15:47:00 EST, Dry Weight Start Date: 05/06/21 Status: Ordered Combivent Respimat 20 mcg-100 mcg/inh inhalation aerosol 1 puffs, Inhalation, 4 times a day, PRN NEEDED FOR WHEEZING OR SHORTNESS OF BREATH, # 4 Gm, 5 Refills, Maintenance, 05/10/21 11:08:00 EST, [facility], 30, 1 puffs Inhalation 4 times a day,PRN: NEEDED FOR WHEEZING OR SHORTNESS OF BREATH,... Start Date: 05/10/21 Status: Ordered fluticasone 50 mcg/inh nasal spray See Instructions, USE 1 SPRAY IN EACH NOSTRIL TWICE A DAY, # 16 Gm, 5 Refills, [facility], 30, USE 1 SPRAY IN EACH NOSTRIL TWICE A DAY, 180, cm, 05/03/21 9:32:00 EST, Height, 77, kg, 04/20/21 15:47:00 EST, Dry Weight Start Date: 05/10/21 Status: Ordered guaiFENesin 200 mg oral tablet 1 tablet = 200 mg, By Mouth, 4 times a day, PRN Cough and Congestion, for 10 days, # 40 tablet, 0 Refills, Acute 05/13/21 10:48:00 EST, 05/03/21 10:48:00 EST, Tablet, [facility], Partial fill upon patient request if the prescription is for a... Start Date: 05/03/21 Stop Date: 05/13/21 Status: Ordered losartan 100 mg oral tablet [...] 07/12/20 14:44:00 EDT, Route to Pharmacy Electronically, [facility], 174, cm,07/12/20 14:32:00 EDT, Height, 57, kg, 03/19/19 14:... Start Date: 07/12/20 Status: Ordered montelukast 10 mg oral tablet 1, tablet, By Mouth, Daily at bedtime, # 30 tablet, Refills 5, Route to Pharmacy Electronically, [facility], 174, cm, 03/22/21 13:58:00 EST, Height Start Date: 04/07/21 Status: Ordered Nebulizer/Compressor See Instructions, # 1 each, Maintenance, Use up to qid Dx. copd Include tubing and mouthpiece, 04/29/21 14:42:00 EST, Supply Start Date: 04/29/21 Status: Ordered nicotine 14 mg/24 hr transdermal film, extended release 1 patch, Topically, Daily, for 14 days, # 14 patch, 0 Refills, Acute 05/17/21 10:47:00 EST, 05/03/21 10:47:00 EST, Patch, [facility], Partial fill upon patient request if the prescription is for a schedule II opioid drug., 1 patch Topically... Start Date: 05/03/21 Stop Date: 05/17/21 Status: Ordered nicotine 4 mg oral transmucosal lozenge 1 lozenge = 4 mg, By Mouth, Every hour, # 72 lozenge, 0 Refills, Acute 05/16/21 21:00:00 EST, 05/03/21 10:23:00 EST, [facility], Partial fill upon patient request if the prescription is fora schedule II opioid drug., 1 lozenge By Mouth Ever... Start Date: 05/03/21 Stop Date: 05/16/21 Status: Ordered Nicotine 7 mg/24 hour patch 1 patch, Topically, Daily, for 14 days, # 14 patch, 0 Refills, Acute 05/17/21 10:47:00 EST, 05/03/21 10:47:00 EST, Patch, [facility], Partial fill upon patient request if the prescription is for a schedule II opioid drug., 1 patch Topically... Start Date: 05/03/21 Stop Date: 05/17/21 Status: Ordered pravastatin 40 mg oral tablet 1 tablet = 40 mg, By Mouth, Daily, # 90 tablet, 1 Refills, Maintenance, 05/10/21 10:26:00 EST, Tablet, [facility], 180, cm, 05/03/21 9:32:00 EST, Height, 77, [...] 0 Refills, Maintenance, 04/22/21 10:45:00 EST, Tablet, [facility], Partial fill upon patien... Start Date: 04/22/21 Status: Ordered ProAir HFA 90 mcg/inh inhalation aerosol with adapter 2, puffs, Inhalation, Every 6 hours, PRN, # 8.5 Gm, Refills 6, Route to Pharmacy Electronically, NCPDP_[id number], [facility], 174, cm, 04/14/21 14:32:00 EST, Height Start Date: 04/18/21 Status: Ordered Remeron 15 mg oral tablet 1 tablet = 15 mg, By Mouth, Daily at bedtime, REPLACES ZOLOFT, # 30 tablet, 1 Refills, Maintenance,06/22/20 15:13:00 EST, Tablet, [facility], Partial fill upon patient request if the prescription is for a schedule II opioid drug., 174, cm,... Start Date: 06/22/20 Status: Ordered Spiriva Respimat 1.25 mcg/inh inhalation aerosol 2 puffs, Inhalation, Daily, # 4 Gm, 5 Refills, [facility], 180, cm, 05/03/21 9:32:00 EST,Height, 77, kg, 04/20/21 15:47:00 EST, Dry Weight Start Date: 05/05/21 Status: Ordered Symbicort 160mcg/4.5mcg Inhaler 2, puffs, Inhalation, 2 times a day, # 10.2 Gm, Refills 10, Route to Pharmacy Electronically, [id number]_[id number], [facility], 180, cm, 05/03/21 9:32:00 EST, Height, [...] 07/12/20 14:43:00 EDT, Route to Pharmacy Electronically, [facility], 174, cm, 07/12/20 14:32:00 EDT, Height, [...] Effective Dates Health Status Clinical Service Informant COPD exacerbation Discharge Diagnosis 05/03/21 Vital Signs Most recent to oldest [Reference Range]: 1 Height 180 cm (05/03/21 9:32 AM) Social History Social History Type Response Smoking Status 5-9 cigarettes (betw een 1/4 to 1/2 pack)/day in last 30 days entered on: 05/26/19 Sex
--- OUTSIDE RECORDS SUMMARY | 2022-09-19 20:54 | XMS_ITS | Continuity of Care Document ---
Author Name Unknown Organization [facility] Trevor lt Address [address] [place] [address]- Care Team Providers Care Technical Testing Engineer Name Role Phone Mike Kruse MD Primary Care Physician Encounter [facility] Date(s): 01/02/22 - 02/01/22 [facility] Adult [address] [place] [address]- Allergies, Adverse Reactions, Alerts Substance Reaction Severity Status lisinopril Atenolol Trisha norvegensis Active cloNIDine Active Immunizations Given and Recorded Vaccine Date Status Refusal Reason [id number] 12y+ bivalent booster vax 1 01/20/22 Given [...] Given tetanus/diphtheria/pertussis, acel(Tdap) 04/01/09 Recorded 1Result Comment: [facility] [id number] 2Location History: [facility] 3Result Comment: [11/22/2016] [facility] 4Result Comment: [03/20/2016] [facility] Medications albuterol 0.083% [...] each, 5 Refills, Maintenance, 12/19/21 15:27:00 EDT, [facility], 30, USE 1 SPRAY IN EACH NOSTRIL TWICE A DAY, 162, cm, 12/16/21 14:39:00 EDT, Height, 59.5, kg, 12/16/21 0:28:00... Start Date: 12/19/21 Status: Ordered guaiFENesin 400 mg oral tablet 1 tablet = 400 mg, By Mouth, 4 times a day, # 120 tablet, 5 Refills, Maintenance, 10/28/21 14:19:00EDT, [facility] 165, cm, 10/28/21 4:51:00 EDT, [...] tablet, 4 Refills, Maintenance, 12/23/21 13:25:00 EDT, [facility], 162, cm, 12/16/21 14:39:00 EDT, Height, [...] Replace Required Details, Route to Pharmacy Electronically, [facility]/pharmacy #1230, 162, cm, 01/20/22... Start Date: [...] 11/18/21 16:53:00 EDT, Route to Pharmacy Electronically, [facility]/pharmacy #1230, Partial fill upon patient request if the prescription is for a schedule II opioid drug... Start Date: 11/18/21 Status: Ordered pravastatin 40 mg oral tablet See Instructions, TAKE 1 TABLET BY MOUTH EVERY DAY, # 30 tablet, 5 Refills, Maintenance, 12/19/21 15:29:00 EDT, [facility], 162, cm, 12/16/21 14:39:00 EDT, Height, 59.5, kg, 12/16/21 0:28:00 EDT, Dry Weight Start Date: 12/19/21 Status: Ordered ProAir HFA 90 mcg/inh inhalation aerosol with adapter 2, puffs, Inhalation, Every 6 hours, PRN, # 8.5 Gm, Refills 1, Tot. Refills 1, 12/13/21 12:40:00 EDT, Route to Pharmacy Electronically, [id number], [facility] 3,162, cm, 12/13/21 4:46:00 EDT, Height, [...] 10/19/21 9:10:00 EDT, Route to Pharmacy Electronically, [id number], [facility]/pharmacy #1230, 180, cm,09/26/21 10:49:00 EDT, Height, 77, kg, 04/20/21 15:... Start Date: 10/19/21 Status: Ordered tamsulosin 0.4 mg oral capsule 1, capsule, By Mouth, Daily, # 30 capsule, Refills 4, Tot. Refills 4, Maintenance, 10/19/21 9:10:00EDT, [facility] 180, cm, 09/26/21 10:49:00 EDT, Height, 77, kg, 04/20/21 15:47:00 EST, Dry Weight Start Date: 10/19/21 Status: Ordered venlafaxine 37.5 mg oral capsule, extended release 37.5 mg, 1, capsule, By Mouth, Daily, # 30 capsule, Refills 1, Tot. Refills 1, Maintenance, 01/30/22 13:06:00 EDT, Route to Pharmacy Electronically, [facility], Partial fill upon patient request if the prescription is for a schedule II opioi... Start Date: 01/30/22 Status: Ordered Problem List Condition Confirmation Course [...] 30 days ago entered on: 09/26/21 Sex Patient Care team information Personnel Name: Mike Kruse MD Address: Address: [address] [place] [id number]
--- OUTSIDE RECORDS SUMMARY | 2022-09-19 20:54 | XMS_ITS | Continuity of Care Document ---
Author Name Unknown Organization [facility] ter Address [address] [place] [id number]- Care Team Providers Care Crate Tier Name Role Phone Aixa BERNABE, Mike Bennett Primary Care Physician [phone] Encounter [facility] Date(s): 12/09/21 - 12/13/[address] [id number] Discharge Disposition: A-D/C Home Attending Physician: Bobby Winston MD Admitting Physician: Sunil Soliz MD Referring Physician: Not on Staff, Referring [...] 5 Refills, Maintenance, 10/28/21 14:18:00 EDT, Solution, [facility]/pharmacy #1230, 165, cm, 10/28/21 4:51:00 EDT, Height, 60.5, kg, 10/26/21 13:16:00 EDT, Dry Weight Start Date: 10/28/21 Status: Ordered amLODIPine 5 mg oral tablet 5 mg, 1, tablet, By Mouth, Daily, # 90 tablet, Refills 1, Tot. Refills 1, Soft Stop, 10/19/21 9:10:00 EDT, Route to Pharmacy Electronically, [facility]/pharmacy #1230, 180, cm, 09/26/21 10:49:00 EDT, Height, 77, kg, 04/20/21 15:47:00 EST, Dry Weight Start Date: 10/19/21 Status: Ordered amLODIPine 5 mg oral tablet 5 mg, Tablet, By Mouth, 12/13/21 9:00:00 EDT Start Date: 12/13/21 Stop Date: 12/13/21 Status: Completed Aspirin Low Dose 81 mg oral delayed release tablet 1 tablet, By Mouth, Daily, # 30 tablet, 11 Refills, 10/19/21 9:10:00 EDT, [facility]/pharmacy #1230, 180, cm, 09/26/21 10:49:00 EDT, Height, 77, kg, 04/20/21 15:47:00 EST, Dry Weight Start Date: 10/19/21 Status: Ordered azithromycin 500 mg oral tablet = 500 mg, By Mouth, Daily, for 3 days, # 3 tablet, 0 Refills, Acute 12/16/21 12:37:00 EDT, 12/14/2211:37:00 EDT, Tablet, [facility], Partial fill upon patient request if the prescription is for a schedule II opioid drug., 162, cm, 12/13... Start Date: 12/13/21 Stop Date: 12/16/21 Status: Ordered fluticasone 50 mcg/inh nasal spray See Instructions, USE 1 SPRAY IN EACH NOSTRIL TWICE A DAY, # 16 Gm, 5 Refills, 10/19/21 9:10:00 EDT, [facility]/pharmacy #1230, 30, USE 1 SPRAY IN EACH NOSTRIL TWICE A DAY, 180, cm, 09/26/21 10:49:00 EDT, Height, 77, kg, 04/20/21 15:47:00 EST, Dry Weight Start Date: 10/19/21 Status: Ordered guaiFENesin 400 mg oral tablet 1 tablet = 400 mg, By Mouth, 4 times a day, # 120 tablet, 5 Refills, Maintenance, 10/28/21 14:19:00EDT, Tablet, [facility]acy #1230, 165, cm, 10/28/21 4:51:00 EDT, Height, 60.5, kg, 10/26/21 13:16:00EDT, Dry Weight Start Date: 10/28/21 Status: Ordered losartan 100 mg oral tablet 1 tablet, By Mouth, Daily, # 30 tablet, 5 Refills, Maintenance, 10/19/21 9:10:00 EDT, [facility]pharmacy #1230, 180, cm, 09/26/21 10:49:00 EDT, Height, 77, kg, 04/20/21 15:47:00 EST, Dry Weight Start Date: 10/19/21 Status: Ordered magnesium oxide 400 mg oral tablet 1 tablet, By Mouth, Daily, # 30 tablet, 6 Refills, Maintenance, 10/19/21 9:10:00 EDT, [facility]/pharm[facility] #1230, 180, cm, 09/26/21 10:49:00 EDT, Height, 77, kg, 04/20/21 15:47:00 EST, Dry Weight Start Date: 10/19/21 Stop Date: 10/19/21 Status: Ordered metoprolol 50 mg oral tablet, extended release 50 mg, XL Tablet, By Mouth, 12/13/21 9:00:00 EDT Start Date: 12/13/21 Stop Date: 12/13/21 Status: Completed Metoprolol Succinate ER 50 mg oral tablet, extended release 1 tablet, By Mouth, Daily, INSTR:DO NOT CRUSH OR CHEW, # 30 tablet, 5 Refills, 10/19/21 9:10:00 EDT, [facility]/pharmacy #1230, 180, cm, 09/26/21 10:49:00 EDT, Height, 77, kg, 04/20/21 15:47:00 EST, Dry Weight Start Date: 10/19/21 Status: Ordered MiraLax oral powder for reconstitution = 17 Gm, By Mouth, 2 times a day, dissolve in water before taking, # 527 Gm, 11 Refills, Maintenance, 10/19/21 9:10:00 EDT, REC Powder, [facility]/pharmacy #1230, Partial fill upon patient request if the prescription is for a schedule II opioid drug., 17 Gm... Start Date: 10/19/21 Status: Ordered montelukast 10 mg oral tablet 1, tablet, By Mouth, Daily at bedtime, # 30 tablet, Refills 5, Tot. Refills 5, 10/19/21 9:10:00 EDT, Route to Pharmacy Electronically, [facility]/pharmacy #1230, 180, cm, 09/26/21 10:49:00 EDT, Height, 77, kg, 04/20/21 15:47:00 EST, Dry Weight Start Date: 10/19/21 Status: Ordered omeprazole 20 mg oral delayed release tablet 1 tablet = 20 mg, By Mouth, Daily, # 30 tablet, 11 Refills, Maintenance, 07/10/22 15:48:00 EDT, CR Tablet, [facility]acy #1230, Partial fill upon patient request if the prescription is for a schedule II opioid drug., 180, cm, 09/26/21 10:49:00 EDT, Hei... Start Date: 07/10/22 Stop Date: 07/05/23 Status: Ordered Plavix 75 mg oral tablet 75 mg, 1, tablet, By Mouth, Daily, # 90 tablet, Refills 1, Tot. Refills 1, Maintenance, 11/18/21 16:53:00 EDT, Route to Pharmacy Electronically, [facility] #1230, Partial fill upon patient request if the prescription is for a schedule II opioid drug... Start Date: 11/18/21 Status: Ordered pravastatin 40 mg oral tablet 1 tablet = 40 mg, By Mouth, Daily, # 90 tablet, 1 Refills, Maintenance, 10/19/21 9:10:00 EDT, Tablet, [facility]1230, 180, cm, 09/26/21 10:49:00 [...] 0 Refills, Maintenance, 12/13/21 12:37:00 EDT, Tablet, [facility]... Start Date: 12/13/21 Status: Ordered ProAir HFA 90 mcg/inh inhalation aerosol with adapter 2, puffs, Inhalation, Every 6 hours, PRN, # 8.5 Gm, Refills 1, Tot. Refills 1, 12/13/21 12:40:00 EDT, Route to Pharmacy Electronically, [id number], [facility],162, cm, 12/13/21 4:46:00 EDT, Height, 60.3, kg, 08... Start Date: 12/13/21 Status: Ordered riboflavin 400 mg oral capsule 1 capsule = 400 mg, By Mouth, Daily, # 30 capsule, 5 Refills, Maintenance, 10/19/21 9:10:00 EDT, [facility] #1230, Partial fill upon patient request if the prescription is for a schedule II opioid drug., 180, cm, 09/26/21 10:49:00 EDT, Height, 77, k... Start Date: 10/19/21 Status: Ordered SEROquel 25 mg oral tablet 25 mg, 1, tablet, By Mouth, Daily at bedtime, # 30 tablet, Refills 5, Tot. Refills 5, Maintenance, 10/28/21 14:23:00 EDT, Route to Pharmacy Electronically, [facility] #1230, 165, cm, 07/15/22 4:51:00 EDT, Height, 60.5, kg, 10/26/21 13:16:00 EDT, Dry... Start Date: 10/28/21 Status: Ordered Spiriva Respimat 1.25 mcg/inh inhalation aerosol 2 puffs, Inhalation, Daily, # 4 Gm, 5 Refills, 10/19/21 9:10:00 EDT, [facility] #1230, 180, cm, 09/26/21 10:49:00 EDT, Height, 77, kg, 04/20/21 15:47:00 EST, Dry Weight Start Date: 10/19/21 Status: Ordered Symbicort 160mcg/4.5mcg Inhaler 2, puffs, Inhalation, 2 times a day, # 10.2 Gm, Refills 10, Tot. Refills 10, 10/19/21 9:10:00 EDT, Route to Pharmacy Electronically, [id number], [facility]/pharmacy #1230, 180, cm,09/26/21 10:49:00 EDT, Height, 77, kg, 04/20/21 15:... Start Date: 10/19/21 Status: Ordered tamsulosin 0.4 mg oral capsule 1, capsule, By Mouth, Daily, # 30 capsule, Refills 4, Tot. Refills 4, Maintenance, 10/19/21 9:10:00EDT, Route to Pharmacy Electronically, [facility]acy #1230, 180, cm, 09/26/21 10:49:00 EDT, Height, 77, kg, 04/20/21 15:47:00 EST, Dry Weight Start Date: 10/19/21 Status: Ordered venlafaxine 37.5 mg oral capsule, extended release 37.5 mg, 1, capsule, By Mouth, Daily, # 30 capsule, Refills 1, Tot. Refills 1, Maintenance, 10/19/21 9:10:00 EDT, Route to Pharmacy Electronically, [facility]acy #1230, Partial fill upon patient [...] CT Images: From the [employer] 2017. Results Radiology Reports * Exam Date Time Procedure Performing Provider Status 12/09/21 3:04 PM Chest Portable [place] , [place]; Auth (V erified) Notes: (Chest Portable) Reason For Exam: Shortness of Breath RESULT: Chest Portable Chest Portable Hx of Present Illness: Patient with COPD presents with increasing exertional dyspnea today. Patientreports recently homeless, staying in [facility] and has increased anxiety. Prescribed inhaler meds not helping. Had tytransient episode of left lateral chest pain last evening.; Reason: Shortness of Breath; Clinical Question(s): CHF / CHF COMPARISON: 11/14/2021 FINDINGS: LINES AND TUBES: None. LUNGS AND PLEURA: Hyperinflated, hyperlucent lungs with coarse lung markings and crowding of markings at the lung bases, similar to prior. No evidence of superimposed consolidation. Normal pulmonary vascularity. No pleural effusion. No pneumothorax. HEART, MEDIASTINUM AND GRETEL: Heart is normal in size. Normal mediastinal and hilar contour. BONES AND SOFT TISSUES: No acute abnormality. IMPRESSION: COPD without evidence of superimposed acute abnormality. WSN: [id number] Ordering Physician: Lala Morales Dictated By: Ney Alberto MD Dictated Date/Time: 12/09/21 3:06 pm Reviewed By: Ney Alberto MD Signed By: Ney Alberto MD Signed Date/Time: 12/09/21 3:06 pm Transcribed By: JAX Transcribed Date/Time: 12/09/21 3:04 pm Vital Signs Most recent to oldest [Reference Range]: 1 2 3 Height 162 cm (12/13/21 4:00 AM) 162 cm (12/13/21 12:00 AM) 162 cm (12/12/21 8:00 PM) Weight 58.7 kg (12/09/21 9: PM) 58.7 kg (12/09/21 9:22 PM) Oxygen Saturation [94-100 %] 98 % (12/13/21 10:00 AM) 96 % (12/13/21 7:00 AM) 95 % (12/13/21 4:00 AM) Pulse Rate [55-90 bpm] 78 bpm (12/13/21 10:00 AM) 73 bpm (12/13/21 9:42 AM) 73 bpm (12/13/21 7:00 AM) Body Mass Index [18.5-24.99] 22.37 (12/09/21 9:26 PM) Blood Pressure [90-138/55-84 mm Hg] 138/67mm Hg (12/13/21 10:00 AM) 127/69mm Hg (12/13/21 9:42 AM) 127/69mm Hg (12/13/21 9:42 AM) Respiratory Rate [16-30 br/min] 20 br/min (12/13/21 10:00 AM) 20 br/min (12/13/21 7:00 AM) 20 br/min (12/13/21 4:00 AM) Temperature [96.8-100.4 DegF] 97.5 DegF (12/13/21 10:00 AM) 97.9 DegF (12/13/21 7:00 AM) 97.8 DegF (12/13/21 4:00 AM) Liters per Minute 2 L/min (12/11/21 11:45 PM) 2 L/min (12/11/21 8:06 PM) 2 L/min (12/09/21 4:10 PM) Mode of Delivery (Oxygen) Room air (12/13/21 10:00 AM) Room air (12/13/21 7:00 AM) Room air (12/13/21 4:00 AM) Blood pressure sites Arm, left (12/13/21 10:00 AM) Arm, left (12/13/21 7:00 AM) Arm, left (12/13/21 4:00 AM) Temperature Route Oral (12/13/21 10:00 AM) Oral (12/13/21 7:00 AM) Oral (12/13/21 4:00 AM) Dry Weight 60.3 kg (12/09/21 9:26 PM) Social History Social History Type Response Smoking Status Former smoker, quit more than 30 days ago entered on: 09/26/21 Sex Note * [facility] , CIS S: TRANSCRIBE Ney Alberto MD: VERIFY Event Display: Result: Authored Date: [id number] Chest Portable Hx of Present Illness: Patient with COPD presents with increasing exertional dyspnea today. Patientreports recently homeless, staying in [facility] and has increased anxiety. Prescribed inhaler meds not helping. Had tytransient episode of left lateral chest pain last evening.; Reason: Shortness of Breath; Clinical Question(s): CHF / CHF COMPARISON: 11/14/2021 FINDINGS: LINES AND TUBES: None. LUNGS AND PLEURA: Hyperinflated, hyperlucent lungs with coarse lung markings and crowding of markings at the lung bases, similar to prior. No evidence of superimposed consolidation. Normal pulmonary vascularity. No pleural effusion. No pneumothorax. HEART, MEDIASTINUM AND GRETEL: Heart is normal in size. Normal mediastinal and hilar contour. BONES AND SOFT TISSUES: No acute abnormality. IMPRESSION: COPD without evidence of superimposed acute abnormality. WSN: [id number] Ordering Physician: Lala Morales Dictated By: Ney Alberto MD Dictated Date/Time: 12/09/21 3:06 pm Reviewed By: Ney Alberto MD Signed By: Ney Alberto MD Signed Date/Time: 12/09/21 3:06 pm Transcribed By: JAX Transcribed Date/Time: 12/09/21 3:04 pm Care Team Personnel Name: Mike Kruse MD Address: [address] [place] [address] [place] [address]-
--- OUTSIDE RECORDS SUMMARY | 2022-09-19 20:54 | XMS_ITS | Continuity of Care Document ---
Author Name Unknown Organization [facility] Trevor lt Address [address] [place] [address]- Care Team Providers Care Supervisor Case Loading Name Role Phone Mike Tristan MD Primary Care Physician [facility] Date[facility]): 10/28/20 - 11/27/20 [facility] Adult [address] [place] [address]- Allergies, Adverse Reactions, Alerts Substance Reaction Severity [...] 05/05/20 13:45:00 EST, Route to Pharmacy Electronically, [facility], 174, cm, 03/01/20 11:26:00 EST, Height, 57, kg, 03/19/19 14:07:00 EST, Dry Weight Start Date: 05/05/20 Status: Ordered aspirin 81 mg oral tablet 1 tablet = 81 mg, By Mouth, Daily, PER DR TRISTAN, # 30 tablet, 5 Refills, Maintenance, 10/13/19 13:42:00 EDT, Tablet, [facility], 174, cm, 10/01/19 13:58:00 EDT, Height, 57, kg, 03/19/19 14:07:00 EST, Dry Weight Start Date: 10/13/19 Status: Ordered Combivent Respimat 20 mcg-100 mcg/inh inhalation aerosol 1 puffs, Inhalation, 4 times a day, PRN NEEDED FOR WHEEZING OR SHORTNESS OF BREATH, # 4 Gm, 11 Refills, Maintenance, 05/07/20 10:33:00 EST, [facility], 30, 1 puffs Inhalation 4 times a day,PRN: NEEDED FOR WHEEZING OR SHORTNESS OF BREATH... Start Date: 05/07/20 Status: Ordered docusate sodium 100 mg oral capsule 1 capsule = 100 mg, By Mouth, 2 times a day, PRN as needed for constipation, # 100 capsule, 2 Refills, Maintenance, 08/17/20 14:09:00 EDT, Capsule, [facility], Partial fill upon patient [...] 16 Gm, 2 Refills, 08/24/20 15:55:00 EDT, [facility], 30, INSTILL 1 SPRAY INTO EACH [...] 1 Refills, Maintenance, 11/16/20 11:14:00 EDT, Capsule, [facility], Partial fill upon patient request if the prescription is for a scheduleII opioid drug., 174, cm, 10/22/20 15:16:00 EDT, He... Start Date: 11/16/20 Status: Ordered losartan 100 mg oral tablet 1 tablet, By Mouth, Daily, # 30 tablet, 11 Refills, Maintenance, 07/12/20 14:44:00 EDT, [facility], 174, cm, 07/12/20 14:32:00 EDT, Height, 57, kg, 03/19/19 14:07:00 EST, Dry Weight Start Date: 07/12/20 Status: Ordered metoprolol 50 mg oral tablet, extended release 50 mg, 1, tablet, By Mouth, Daily, do not crush or chew, # 30 tablet, Refills 11, Tot. Refills 11, Maintenance, 07/12/20 14:44:00 EDT, Route to Pharmacy Electronically, [facility], 174, cm,07/12/20 14:32:00 EDT, Height, 57, kg, 03/19/19 14:... Start Date: 07/12/20 Status: Ordered montelukast 10 mg oral tablet 1, tablet, By Mouth, Daily at bedtime, # 30 tablet, Refills 4, Tot. Refills 0, Maintenance, 10/20/20 11:07:00 EDT, Route to Pharmacy Electronically, [facility], 174, cm, 09/14/20 14:37:00 EDT, Height, 57, kg, 03/19/19 14:07:00 EST, Dry Weight Start Date: 10/20/20 Status: Ordered Nasacort Allergy 24HR 55 mcg/inh nasal spray 2 sprays, Nares, Both, Daily, # 3 each, 0 Refills, Maintenance, 01/08/20 14:50:00 EDT, [facility], 2 sprays Nares, Both Daily, 174, cm, 01/08/20 14:29:00 EDT, Height, 57, kg, 03/19/19 14:07:00 EST, Dry Weight Start Date: 01/08/20 Status: Ordered nicotine 4 mg oral transmucosal lozenge 1 lozenge = 4 mg, By Mouth, Every hour, # 189 lozenge, 11 Refills, Maintenance, 07/12/20 14:49:00 EDT, [facility], 1 lozenge By Mouth Every hour, 174, cm, 07/12/20 14:32:00 EDT, Height, 57,kg, 03/19/19 14:07:00 EST, Dry Weight Start Date: 07/12/20 Status: Ordered omeprazole 20 mg oral enteric coated capsule 1 capsule, By Mouth, Daily, # 14 capsule, 0 Refills, Maintenance, 07/05/20 8:06:00 [facility], [facility], cm, 06/22/20 14:37:00 EST, Height, 57, kg, 03/19/19 14:07:00 EST, Dry Weight Start Date: 07/05/20 Stop Date: 07/19/20 Status: Ordered pravastatin 40 mg oral tablet 1 tablet = 40 mg, By Mouth, Daily, # 90 tablet, 1 Refills, Maintenance, 08/24/20 15:56:00 EDT, Tablet, [facility], 174, cm, 08/17/20 13:45:00 EDT, Height, 57, kg, 03/19/19 14:07:00 EST, DryWeight Start Date: 08/24/20 Status: Ordered Remeron 15 mg oral tablet 1 tablet = 15 mg, By Mouth, Daily at bedtime, REPLACES ZOLOFT, # 30 tablet, 1 Refills, Maintenance,06/22/20 15:13:00 EST, Tablet, [facility], Partial fill upon patient request if the prescription is for a schedule II opioid drug., 174, cm,... Start Date: 06/22/20 Status: Ordered Spiriva Respimat 1.25 mcg/inh inhalation aerosol 2 puffs, Inhalation, Daily, # 4 Gm, 11 Refills, Maintenance, 05/25/20 13:51:00 EST, Aerosol, [facility], Partial fill upon patient request if the prescription is for a schedule II opioid drug., 174, cm, 05/07/20 10:13:00 EST, Height, 57, kg,... Start Date: 05/25/20 Status: Ordered Symbicort 160mcg/4.5mcg Inhaler 2, puffs, Inhalation, 2 times a day, # 1 each, Refills 11, Tot. Refills 11, Maintenance, 05/25/20 13:51:00 EST, Aerosol, Route to Pharmacy Electronically, [id number], [facility], 174,cm, 05/07/20 10:13:00 EST, Height, 57, kg, 03/19/19... Start Date: 05/25/20 Status: Ordered tamsulosin 0.4 mg oral capsule 1, capsule, By Mouth, Daily, # 30 capsule, Refills 4, Tot. Refills 0, Maintenance, 10/20/20 11:06:00 EDT, Route to Pharmacy Electronically, [facility], 174, cm, 09/14/20 14:37:00 EDT, Height, 57, kg, 03/19/19 14:07:00 EST, Dry Weight Start Date: 10/20/20 Status: Ordered traZODone 50 mg oral tablet 100 mg, 2, tablet, By Mouth, Daily at bedtime, # 60 tablet, Refills 11, Tot. Refills 11, Maintenance, 07/12/20 14:43:00 EDT, Route to Pharmacy Electronically, [facility], 174, cm, 07/12/20 14:32:00 EDT, Height, 57, kg, 03/19/19 14:07:00 EST,... Start Date: 07/12/20 Status: Ordered Tylenol Extra Strength 500 mg oral tablet See Instructions, PRN for pain, 1 or 2 tablet By Mouth 3 times a day PER DR TRISTAN, # 100 tablet, 11 Refills, Maintenance, 06/08/20 10:22:00 EST, Tablet, [facility], 174, cm, 06/08/20 9:48:00 EST, Height, 57, kg, 03/19/19 14:07:00 EST, Dry Weight Start Date: 06/08/20 Status: Ordered ZyrTEC 10 mg oral tablet 1 tablet = 10 mg, By Mouth, Daily, # 30 tablet, 5 Refills, Maintenance, 03/08/20 8:02:00 EST, Tablet, [facility], 174, cm, 03/01/20 11:26:00 EST, Height, [...]
--- OUTSIDE RECORDS SUMMARY | 2022-09-19 20:54 | XMS_ITS | Continuity of Care Document ---
Author Name Unknown Organization [facility] Trevor lt Address [address] [place] [address]- Care Team Providers Care Sole Cementer Name Role Phone Aixa BERNABE, Mike Bennett Primary Care Physician [facility] - 12[facility]16/20 [facility] Adult [address] [place] [address]- Allergies, Adverse Reactions, Alerts Substance Reaction Severity [...] 05/05/20 13:45:00 EST, Route to Pharmacy Electronically, [facility], 174, cm, 03/01/20 11:26:00 EST, Height, 57, kg, 03/19/19 14:07:00 EST, Dry Weight Start Date: 05/05/20 Status: Ordered aspirin 81 mg oral tablet 1 tablet = 81 mg, By Mouth, Daily, PER DR TRISTAN, # 30 tablet, 5 Refills, Maintenance, 10/13/19 13:42:00 EDT, Tablet, [facility], 174, cm, 10/01/19 13:58:00 EDT, Height, 57, kg, 03/19/19 14:07:00 EST, Dry Weight Start Date: 10/13/19 Status: Ordered Combivent Respimat 20 mcg-100 mcg/inh inhalation aerosol 1 puffs, Inhalation, 4 times a day, PRN NEEDED FOR WHEEZING OR SHORTNESS OF BREATH, # 4 Gm, 11 Refills, Maintenance, 05/07/20 10:33:00 EST, [facility], 30, 1 puffs Inhalation 4 times a day,PRN: NEEDED FOR WHEEZING OR SHORTNESS OF BREATH... Start Date: 05/07/20 Status: Ordered docusate sodium 100 mg oral capsule 1 capsule = 100 mg, By Mouth, 2 times a day, PRN as needed for constipation, # 100 capsule, 2 Refills, Maintenance, 08/17/20 14:09:00 EDT, Capsule, [facility], Partial fill upon patient request [...] 16 Gm, 2 Refills, 08/24/20 15:55:00 EDT, [facility], 30, INSTILL 1 SPRAY INTO EACH [...] 1 Refills, Maintenance, 11/30/20 11:11:00 EDT, Capsule, [facility], Partial fill upon patient request if the prescription is for a scheduleII opioid drug., 174, cm, 11/30/20 10:34:00 EDT, He... Start Date: 11/30/20 Status: Ordered losartan 100 mg oral tablet 1 tablet, By Mouth, Daily, # 30 tablet, 11 Refills, Maintenance, 07/12/20 14:44:00 EDT, [facility], 174, cm, 07/12/20 14:32:00 EDT, Height, 57, kg, 03/19/19 14:07:00 EST, Dry Weight Start Date: 07/12/20 Status: Ordered metoprolol 50 mg oral tablet, extended release 50 mg, 1, tablet, By Mouth, Daily, do not crush or chew, # 30 tablet, Refills 11, Tot. Refills 11, Maintenance, 07/12/20 14:44:00 EDT, Route to Pharmacy Electronically, [facility], 174, cm,07/12/20 14:32:00 EDT, Height, 57, kg, 03/19/19 14:... Start Date: 07/12/20 Status: Ordered montelukast 10 mg oral tablet 1, tablet, By Mouth, Daily at bedtime, # 30 tablet, Refills 4, Tot. Refills 0, Maintenance, 10/20/20 11:07:00 EDT, Route to Pharmacy Electronically, [facility], 174, cm, 09/14/20 14:37:00 EDT, Height, 57, kg, 03/19/19 14:07:00 EST, Dry Weight Start Date: 10/20/20 Status: Ordered Nasacort Allergy 24HR 55 mcg/inh nasal spray 2 sprays, Nares, Both, Daily, # 3 each, 0 Refills, Maintenance, 01/08/20 14:50:00 EDT, [facility], 2 sprays Nares, Both Daily, 174, cm, 01/08/20 14:29:00 EDT, Height, 57, kg, 03/19/19 14:07:00 EST, Dry Weight Start Date: 01/08/20 Status: Ordered nicotine 4 mg oral transmucosal lozenge 1 lozenge = 4 mg, By Mouth, Every hour, # 189 lozenge, 11 Refills, Maintenance, 07/12/20 14:49:00 EDT, [facility], 1 lozenge By Mouth Every hour, 174, cm, 07/12/20 14:32:00 EDT, Height, 57,kg, 03/19/19 14:07:00 EST, Dry Weight Start Date: 07/12/20 Status: Ordered omeprazole 20 mg oral enteric coated capsule 1 capsule, By Mouth, Daily, # 14 capsule, 0 Refills, Maintenance, 07/05/20 8:06:00 EDT, [facility], 174, cm, 06/22/20 14:37:00 EST, Height, 57, kg, 03/19/19 14:07:00 EST, Dry Weight Start Date: 07/05/20 Stop Date: 07/19/20 Status: Ordered pravastatin 40 mg oral tablet 1 tablet = 40 mg, By Mouth, Daily, # 90 tablet, 1 Refills, Maintenance, 08/24/20 15:56:00 EDT, Tablet, [facility], 174, cm, 08/17/20 13:45:00 EDT, Height, 57, kg, 03/19/19 14:07:00 EST, DryWeight Start Date: 08/24/20 Status: Ordered Remeron 15 mg oral tablet 1 tablet = 15 mg, By Mouth, Daily at bedtime, REPLACES ZOLOFT, # 30 tablet, 1 Refills, Maintenance,06/22/20 15:13:00 EST, Tablet, [facility], Partial fill upon patient request if the prescription is for a schedule II opioid drug., 174, cm,... Start Date: 06/22/20 Status: Ordered Spiriva Respimat 1.25 mcg/inh inhalation aerosol 2 puffs, Inhalation, Daily, # 4 Gm, 11 Refills, Maintenance, 05/25/20 13:51:00 EST, Aerosol, [facility], Partial fill upon patient request if the prescription is for a schedule II opioid drug., 174, cm, 05/07/20 10:13:00 EST, Height, 57, kg,... Start Date: 05/25/20 Status: Ordered Symbicort 160mcg/4.5mcg Inhaler 2, puffs, Inhalation, 2 times a day, # 1 each, Refills 11, Tot. Refills 11, Maintenance, 05/25/20 13:51:00 EST, Aerosol, Route to Pharmacy Electronically, [id number], [facility], 174,cm, 05/07/20 10:13:00 EST, Height, 57, kg, 03/19/19... Start Date: 05/25/20 Status: Ordered tamsulosin 0.4 mg oral capsule 1, capsule, By Mouth, Daily, # 30 capsule, Refills 4, Tot. Refills 0, Maintenance, 10/20/20 11:06:00 EDT, Route to Pharmacy Electronically, [facility], 174, cm, 09/14/20 14:37:00 EDT, Height, 57, kg, 03/19/19 14:07:00 EST, Dry Weight Start Date: 10/20/20 Status: Ordered traZODone 50 mg oral tablet 100 mg, 2, tablet, By Mouth, Daily at bedtime, # 60 tablet, Refills 11, Tot. Refills 11, Maintenance, 07/12/20 14:43:00 EDT, Route to Pharmacy Electronically, [facility], 174, cm, 07/12/20 14:32:00 EDT, Height, 57, kg, 03/19/19 14:07:00 EST,... Start Date: 07/12/20 Status: Ordered Tylenol Extra Strength 500 mg oral tablet See Instructions, PRN for pain, 1 or 2 tablet By Mouth 3 times a day PER DR TRISTAN, # 100 tablet, 11 Refills, Maintenance, 06/08/20 10:22:00 EST, Tablet, [facility], 174, cm, 06/08/20 9:48:00 EST, Height, 57, kg, 03/19/19 14:07:00 EST, Dry Weight Start Date: 06/08/20 Status: Ordered ZyrTEC 10 mg oral tablet 1 tablet = 10 mg, By Mouth, Daily, # 30 tablet, 5 Refills, Maintenance, 03/08/20 8:02:00 EST, Tablet, [facility], 174, cm, 03/01/20 11:26:00 EST, Height, [...]
--- OUTSIDE RECORDS SUMMARY | 2022-09-19 20:54 | XMS_ITS | Continuity of Care Document ---
Author Name Unknown Organization [facility] Trevor lt Address [address] [place] [address]- Care Team Providers Care Photographic Machine Operator Name Role Phone Mike Kruse MD Primary Care Physician [phone] [facility]counter [facility] 09[facility]21 - 10/01/21 [facility] Adult [address] [place] [address]- Allergies, Adverse Reactions, Alerts Substance Reaction Severity [...] 11 Refills, Maintenance, 07/15/21 15:49:00 EDT, Solution, [facility], Partial fill upon patient request if the prescription is for a schedule II opioid drug., 180, cm, 04... Start Date: 07/15/21 Status: Ordered amLODIPine 5 mg oral tablet 5 mg, 1, tablet, By Mouth, Daily, # 90 tablet, Refills 1, Tot. Refills 1, Soft Stop, 04/12/21 8:59:00 EST, Route to Pharmacy Electronically, [facility], 174, cm, 03/22/21 13:58:00 EST, Height Start Date: 04/12/21 Status: Ordered Aspirin Low Dose 81 mg oral delayed release tablet 1 tablet, By Mouth, Daily, # 30 tablet, 11 Refills, [facility], 180, cm, 05/03/21 9:32:00EST, Height, 77, kg, 04/20/21 15:47:00 EST, Dry Weight Start Date: 05/06/21 Status: Ordered Claritin 10 mg oral tablet 10 mg, 1, tablet, By Mouth, Daily, REPLACES ZYRTEC, # 30 tablet, Refills 6, Tot. Refills 6, Maintenance, 08/23/21 10:10:00 EDT, Route to Pharmacy Electronically, [facility], Partial fill upon patient request if the prescription is for a sche... Start Date: 08/23/21 Status: Ordered Dulcolax Stool Softener 100 mg oral capsule 1 capsule = 100 mg, By Mouth, 2 times a day, # 60 capsule, 11 Refills, Maintenance, 07/26/21 14:09:00 EDT, Capsule, [facility], Partial fill upon patient request if the prescription is for a schedule II opioid drug., 180, cm, 07/15/21 15:35:... Start Date: 07/26/21 Stop Date: 07/21/22 Status: Ordered fluticasone 50 mcg/inh nasal spray See Instructions, USE 1 SPRAY IN EACH NOSTRIL TWICE A DAY, # 16 Gm, 5 Refills, [facility], 30, USE 1 SPRAY IN EACH NOSTRIL TWICE A DAY, 180, cm, 05/03/21 9:32:00 EST, Height, 77, kg, 04/20/21 15:47:00 EST, Dry Weight Start Date: 05/10/21 Status: Ordered losartan 100 mg oral tablet 1 tablet, By Mouth, Daily, # 30 tablet, 5 Refills, Maintenance, 07/05/21 11:52:00 EDT, [facility], 180, cm, 06/27/21 12:02:00 EDT, Height, 77, kg, 04/20/21 15:47:00 EST, Dry Weight Start Date: 07/05/21 Status: Ordered magnesium oxide 400 mg oral tablet 1 tablet, By Mouth, Daily, # 30 tablet, 6 Refills, [facility], 180, cm, 09/26/21 10:49:00EDT, Height, 77, kg, 04/20/21 15:47:00 EST, Dry Weight Start Date: 09/27/21 Status: Ordered meclizine 25 mg oral tablet 1 tablet = 25 mg, By Mouth, 3 times a day, PRN for dizziness, # 30 tablet, 0 Refills, Acute 10/10/21 0:00:00 EDT, 09/26/21 11:21:00 EDT, Tablet, [facility], Partial fill upon patient request if the prescription is for a schedule II opioid . Start Date: 09/26/21 Stop Date: 10/10/21 Status: Ordered Metoprolol Succinate ER 50 mg oral tablet, extended release 1 tablet, By Mouth, Daily, INSTR:DO NOT CRUSH OR CHEW, # 30 tablet, 5 Refills, [facility], 180, cm, 07/15/21 15:35:00 EDT, Height, 77, kg, 04/20/21 15:47:00 EST, Dry Weight Start Date: 07/29/21 Status: Ordered MiraLax oral powder for reconstitution = 17 Gm, By Mouth, 2 times a day, dissolve in water before taking, # 527 Gm, 11 Refills, Maintenance, 07/26/21 14:09:00 EDT, REC Powder, [facility], Partial fill upon patient request if theprescription is for a schedule II opioid drug., 17... Start Date: 07/26/21 Status: Ordered montelukast 10 mg oral tablet 1, tablet, By Mouth, Daily at bedtime, # 30 tablet, Refills 5, Route to Pharmacy Electronically, [facility], 174, cm, 03/22/21 13:58:00 EST, Height [...] Refills, Maintenance, 07/15/21 15:48:00 EDT, CR Tablet, [facility], Partial fill upon patient request if the prescription is for a schedule II opioid drug., 180, cm, 07/15/21 15:35:00 EDT, H... Start Date: 07/15/21 Stop Date: 07/10/22 Status: Ordered pravastatin 40 mg oral tablet 1 tablet = 40 mg, By Mouth, Daily, # 90 tablet, 1 Refills, Maintenance, 05/10/21 10:26:00 EST, Tablet, [facility], 180, cm, 05/03/21 9:32:00 EST, Height, 77, kg, 04/20/21 15:47:00 EST, Dry Weight Start Date: 05/10/21 Status: Ordered ProAir HFA 90 mcg/inh inhalation aerosol with adapter 2, puffs, Inhalation, Every 6 hours, PRN, # 8.5 Gm, Refills 6, Route to Pharmacy Electronically, [id number]_[id number], [facility], 174, cm, 04/14/21 14:32:00 EST, Height Start Date: 04/18/21 Status: Ordered riboflavin 400 mg oral capsule 1 capsule = 400 mg, By Mouth, Daily, # 30 capsule, 5 Refills, Maintenance, 08/23/21 10:09:00 EDT, [facility], Partial fill upon patient request if the prescription is for a schedule II opioid drug., 180, cm, 08/23/21 9:21:00 EDT, Height, 77,... Start Date: 08/23/21 Status: Ordered Spiriva Respimat 1.25 mcg/inh inhalation aerosol 2 puffs, Inhalation, Daily, # 4 Gm, 5 Refills, [facility], 180, cm, 05/03/21 9:32:00 EST,Height, 77, kg, 04/20/21 15:47:00 EST, Dry Weight Start Date: 05/05/21 Status: Ordered Symbicort 160mcg/4.5mcg Inhaler 2, puffs, Inhalation, 2 times a day, # 10.2 Gm, Refills 10, Route to Pharmacy Electronically, [id number]_[id number], [facility], 180, cm, 05/03/21 9:32:00 EST, Height, 77, kg, 04/20/21 15:47:00 EST, Dry Weight Start Date: 05/06/21 Status: Ordered tamsulosin 0.4 mg oral capsule 1, capsule, By Mouth, Daily, # 30 capsule, Refills 4, Tot. Refills 4, Maintenance, 08/25/21 14:22:00 EDT, Route to Pharmacy Electronically, [facility], 180, cm, 08/23/21 9:21:00 EDT, Height, 77, kg, 04/20/21 15:47:00 EST, Dry Weight Start Date: 08/25/21 Status: Ordered traZODone 50 mg oral tablet 100 mg, 2, tablet, By Mouth, Daily at bedtime, # 60 tablet, Refills 5, Tot. Refills 5, Maintenance,08/05/21 10:43:00 EDT, Route to Pharmacy Electronically, [facility], 180, cm, 08/02/21 15:00:00 EDT, Height, 77, kg, 04/20/21 15:47:00 EST, D... Start Date: 08/05/21 Status: Ordered venlafaxine 37.5 mg oral capsule, extended release 37.5 mg, 1, capsule, By Mouth, Daily, # 30 capsule, Refills 0, Tot. Refills 0, Maintenance, 06/27/21 13:03:00 EDT, Route to Pharmacy Electronically, [facility], Partial fill upon patient request if [...]
--- OUTSIDE RECORDS SUMMARY | 2022-09-19 20:54 | XMS_ITS | Continuity of Care Document ---
Author Name Unknown Organization [facility] Trevor lt Address [address] [place] [address]- Care Team Providers Care Watch Technician Name Role Phone Mike Tristan MD Primary Care Physician [phone] [facility]s): 09/22/20 - 10/22/20 [facility] Adult [address] [place] [address]- Allergies, Adverse Reactions, Alerts Substance Reaction Severity [...] 05/05/20 13:45:00 EST, Route to Pharmacy Electronically, [facility], 174, cm, 03/01/20 11:26:00 EST, Height, 57, kg, 03/19/19 14:07:00 EST, Dry Weight Start Date: 05/05/20 Status: Ordered aspirin 81 mg oral tablet 1 tablet = 81 mg, By Mouth, Daily, PER DR TRISTAN, # 30 tablet, 5 Refills, Maintenance, 10/13/19 13:42:00 EDT, Tablet, [facility], 174, cm, 10/01/19 13:58:00 EDT, Height, 57, kg, 03/19/19 14:07:00 EST, Dry Weight Start Date: 10/13/19 Status: Ordered Combivent Respimat 20 mcg-100 mcg/inh inhalation aerosol 1 puffs, Inhalation, 4 times a day, PRN NEEDED FOR WHEEZING OR SHORTNESS OF BREATH, # 4 Gm, 11 Refills, Maintenance, 05/07/20 10:33:00 EST, [facility], 30, 1 puffs Inhalation 4 times a day,PRN: NEEDED FOR WHEEZING OR SHORTNESS OF BREATH... Start Date: 05/07/20 Status: Ordered docusate sodium 100 mg oral capsule 1 capsule = 100 mg, By Mouth, 2 times a day, PRN as needed for constipation, # 100 capsule, 2 Refills, Maintenance, 08/17/20 14:09:00 EDT, Capsule, [facility], Partial fill upon patient request if [...] 16 Gm, 2 Refills, 08/24/20 15:55:00 EDT, [facility], 30, INSTILL 1 SPRAY INTO EACH [...] 1 Refills, Maintenance, 08/17/20 14:11:00 EDT, Capsule, [facility], Partial fill upon patient request if the prescription is for a scheduleII opioid drug., 174, cm, 08/17/20 13:45:00 EDT, He... Start Date: 08/17/20 Status: Ordered losartan 100 mg oral tablet 1 tablet, By Mouth, Daily, # 30 tablet, 11 Refills, Maintenance, 07/12/20 14:44:00 EDT, [facility], 174, cm, 07/12/20 14:32:00 EDT, Height, 57, kg, 03/19/19 14:07:00 EST, Dry Weight Start Date: 07/12/20 Status: Ordered metoprolol 50 mg oral tablet, extended release 50 mg, 1, tablet, By Mouth, Daily, do not crush or chew, # 30 tablet, Refills 11, Tot. Refills 11, Maintenance, 07/12/20 14:44:00 EDT, Route to Pharmacy Electronically, [facility], 174, cm,07/12/20 14:32:00 EDT, Height, 57, kg, 03/19/19 14:... Start Date: 07/12/20 Status: Ordered montelukast 10 mg oral tablet 1, tablet, By Mouth, Daily at bedtime, # 30 tablet, Refills 4, Tot. Refills 0, Maintenance, 10/20/20 11:07:00 EDT, Route to Pharmacy Electronically, [facility], 174, cm, 09/14/20 14:37:00 EDT, Height, 57, kg, 03/19/19 14:07:00 EST, Dry Weight Start Date: 10/20/20 Status: Ordered Nasacort Allergy 24HR 55 mcg/inh nasal spray 2 sprays, Nares, Both, Daily, # 3 each, 0 Refills, Maintenance, 01/08/20 14:50:00 EDT, [facility], 2 sprays Nares, Both Daily, 174, cm, 01/08/20 14:29:00 EDT, Height, 57, kg, 03/19/19 14:07:00 EST, Dry Weight Start Date: 01/08/20 Status: Ordered nicotine 4 mg oral transmucosal lozenge 1 lozenge = 4 mg, By Mouth, Every hour, # 189 lozenge, 11 Refills, Maintenance, 07/12/20 14:49:00 EDT, [facility], 1 lozenge By Mouth Every hour, [...] 1 Refills, Maintenance, 08/24/20 15:56:00 EDT, Tablet, [facility], 174, cm, 08/17/20 13:45:00 EDT, Height, 57, kg, 03/19/19 14:07:00 EST, DryWeight Start Date: 08/24/20 Status: Ordered Remeron 15 mg oral tablet 1 tablet = 15 mg, By Mouth, Daily at bedtime, REPLACES ZOLOFT, # 30 tablet, 1 Refills, Maintenance,06/22/20 15:13:00 EST, Tablet, [facility], Partial fill upon patient request if the prescription is for a schedule II opioid drug., 174, cm,... Start Date: 06/22/20 Status: Ordered Spiriva Respimat 1.25 mcg/inh inhalation aerosol 2 puffs, Inhalation, Daily, # 4 Gm, 11 Refills, Maintenance, 05/25/20 13:51:00 EST, Aerosol, [facility], Partial fill upon patient request if the prescription is for a schedule II opioid drug., 174, cm, 05/07/20 10:13:00 EST, Height, 57, kg,... Start Date: 05/25/20 Status: Ordered Symbicort 160mcg/4.5mcg Inhaler 2, puffs, Inhalation, 2 times a day, # 1 each, Refills 11, Tot. Refills 11, Maintenance, 05/25/20 13:51:00 EST, Aerosol, Route to Pharmacy Electronically, [id number]_[id number], [facility], 174,cm, 05/07/20 10:13:00 EST, Height, 57, kg, 03/19/19... Start Date: 05/25/20 Status: Ordered tamsulosin 0.4 mg oral capsule 1, capsule, By Mouth, Daily, # 30 capsule, Refills 4, Tot. Refills 0, Maintenance, 10/20/20 11:06:00 EDT, Route to Pharmacy Electronically, [facility], 174, cm, 09/14/20 14:37:00 EDT, Height, 57, kg, 03/19/19 14:07:00 EST, Dry Weight Start Date: 10/20/20 Status: Ordered traZODone 50 mg oral tablet 100 mg, 2, tablet, By Mouth, Daily at bedtime, # 60 tablet, Refills 11, Tot. Refills 11, Maintenance, 07/12/20 14:43:00 EDT, Route to Pharmacy Electronically, [facility], 174, cm, 07/12/20 14:32:00 EDT, Height, 57, kg, 03/19/19 14:07:00 EST,... Start Date: 07/12/20 Status: Ordered Tylenol Extra Strength 500 mg oral tablet See Instructions, PRN for pain, 1 or 2 tablet By Mouth 3 times a day PER DR TRISTAN, # 100 tablet, 11 Refills, Maintenance, 06/08/20 10:22:00 EST, Tablet, [facility], 174, cm, 06/08/20 9:48:00 EST, Height, 57, kg, 03/19/19 14:07:00 EST, Dry Weight Start Date: 06/08/20 Status: Ordered ZyrTEC 10 mg oral tablet 1 tablet = 10 mg, By Mouth, Daily, # 30 tablet, 5 Refills, Maintenance, 03/08/20 8:02:00 EST, Tablet, [facility], 174, cm, 03/01/20 11:26:00 EST, Height, [...]
--- OUTSIDE RECORDS SUMMARY | 2022-09-19 20:54 | XMS_ITS | Continuity of Care Document ---
Author Name Unknown Organization [facility] Trevor lt Address [address] [place] [address]- Care Team Providers Care Occupational Therapist Name Role Phone Mike Kruse MD Primary Care Physician [phone] Encounter [facility] Date(s): 09/16/21 - 10/16/21 [facility] [address] [place] [address]- Allergies, Adverse Reactions, Alerts Substance Reaction Severity [...] 11 Refills, Maintenance, 07/15/21 15:49:00 EDT, Solution, [facility], Partial fill upon patient request if the prescription is for a schedule II opioid drug., 180, cm, 04... Start Date: 07/15/21 Status: Ordered amLODIPine 5 mg oral tablet 5 mg, 1, tablet, By Mouth, Daily, # 90 tablet, Refills 1, Tot. Refills 1, Soft Stop, 04/12/21 8:59:00 EST, Route to Pharmacy Electronically, [facility], 174, cm, 03/22/21 13:58:00 EST, Height Start Date: 04/12/21 Status: Ordered Aspirin Low Dose 81 mg oral delayed release tablet 1 tablet, By Mouth, Daily, # 30 tablet, 11 Refills, [facility], 180, cm, 05/03/21 9:32:00EST, Height, 77, kg, 04/20/21 15:47:00 EST, Dry Weight Start Date: 05/06/21 Status: Ordered Azithromycin 5 Day Dose Pack 250 mg oral tablet 1 pack/packet, By Mouth, Once, # 6 tablet, 0 Refills, Soft Stop, 10/12/21 17:42:00 EDT, Tablet, [facility]/pharmacy #[id number], Partial fill upon patient request if the prescription is for a schedule II opioid drug., 180, cm, 09/26/21 10:49:00 EDT, Height, 77, kg... Start Date: 10/12/21 Status: Ordered Claritin 10 mg oral tablet 10 mg, 1, tablet, By Mouth, Daily, REPLACES ZYRTEC, # 30 tablet, Refills 6, Tot. Refills 6, Maintenance, 08/23/21 10:10:00 EDT, Route to Pharmacy Electronically, [facility], Partial fill upon patient request if the prescription is for a sche... Start Date: 08/23/21 Status: Ordered Dulcolax Stool Softener 100 mg oral capsule 1 capsule = 100 mg, By Mouth, 2 times a day, # 60 capsule, 11 Refills, Maintenance, 07/26/21 14:09:00 EDT, Capsule, [facility], Partial fill upon patient request if the prescription is for a schedule II opioid drug., 180, cm, 07/15/21 15:35:... Start Date: 07/26/21 Stop Date: 07/21/22 Status: Ordered fluticasone 50 mcg/inh nasal spray See Instructions, USE 1 SPRAY IN EACH NOSTRIL TWICE A DAY, # 16 Gm, 5 Refills, [facility], 30, USE 1 SPRAY IN EACH NOSTRIL TWICE A DAY, 180, cm, 05/03/21 9:32:00 EST, Height, 77, kg, 04/20/21 15:47:00 EST, Dry Weight Start Date: 05/10/21 Status: Ordered guaiFENesin 100 mg/5 mL oral liquid 5 mL = 100 mg, By Mouth, Every 4 hours, PRN for cough, # 300 mL, 0 Refills, Maintenance, 10/12/21 17:43:00 EDT, Liquid, [facility]/pharmacy #[id number], Partial fill upon patient request if the prescription is for a schedule II opioid drug., 180, cm, 09/26/21 10:4... Start Date: 10/12/21 Status: Ordered losartan 100 mg oral tablet 1 tablet, By Mouth, Daily, # 30 tablet, 5 Refills, Maintenance, 07/05/21 11:52:00 EDT, [facility], 180, cm, 06/27/21 12:02:00 EDT, Height, 77, kg, 04/20/21 15:47:00 EST, Dry Weight Start Date: 07/05/21 Status: Ordered magnesium oxide 400 mg oral tablet 1 tablet, By Mouth, Daily, # 30 tablet, 6 Refills, [facility], 180, cm, 09/26/21 10:49:00EDT, Height, 77, kg, 04/20/21 15:47:00 EST, Dry Weight Start Date: 09/27/21 Status: Ordered Metoprolol Succinate ER 50 mg oral tablet, extended release 1 tablet, By Mouth, Daily, INSTR:DO NOT CRUSH OR CHEW, # 30 tablet, 5 Refills, [facility], 180, cm, 07/15/21 15:35:00 EDT, Height, 77, kg, 04/20/21 15:47:00 EST, Dry Weight Start Date: 07/29/21 Status: Ordered MiraLax oral powder for reconstitution = 17 Gm, By Mouth, 2 times a day, dissolve in water before taking, # 527 Gm, 11 Refills, Maintenance, 07/26/21 14:09:00 EDT, REC Powder, [facility], Partial fill upon patient request if theprescription is for a schedule II opioid drug., 17... Start Date: 07/26/21 Status: Ordered montelukast 10 mg oral tablet 1, tablet, By Mouth, Daily at bedtime, # 30 tablet, Refills 5, Route to Pharmacy Electronically, [facility], 174, cm, 03/22/21 13:58:00 EST, Height [...] Refills, Maintenance, 07/15/21 15:48:00 EDT, CR Tablet, [facility], Partial fill upon patient request if the prescription is for a schedule II opioid drug., 180, cm, 07/15/21 15:35:00 EDT, H... Start Date: 07/15/21 Stop Date: 07/10/22 Status: Ordered pravastatin 40 mg oral tablet 1 tablet = 40 mg, By Mouth, Daily, # 90 tablet, 1 Refills, Maintenance, 05/10/21 10:26:00 EST, Tablet, [facility], 180, cm, 05/03/21 9:32:00 EST, Height, 77, kg, 04/20/21 15:47:00 EST, Dry Weight Start Date: 05/10/21 Status: Ordered predniSONE 20 mg oral tablet 2 tablet = 40 mg, By Mouth, Daily, for 5 days, # 10 tablet, 0 Refills, Acute 10/17/21 17:42:00 EDT,10/12/21 17:42:00 EDT, [facility]/pharmacy #[id number], Partial fill upon patient request if the prescription isfor a schedule II opioid drug., 180, cm, 09/26/21 1... Start Date: 10/12/21 Stop Date: 10/17/21 Status: Ordered ProAir HFA 90 mcg/inh inhalation aerosol with adapter 2, puffs, Inhalation, Every 6 hours, PRN, # 8.5 Gm, Refills 6, Route to Pharmacy Electronically, [id number]_[id number], [facility], 174, cm, 04/14/21 14:32:00 EST, Height Start Date: 04/18/21 Status: Ordered riboflavin 400 mg oral capsule 1 capsule = 400 mg, By Mouth, Daily, # 30 capsule, 5 Refills, Maintenance, 08/23/21 10:09:00 EDT, [facility], Partial fill upon patient request if the prescription is for a schedule II opioid drug., 180, cm, 08/23/21 9:21:00 EDT, Height, 77,... Start Date: 08/23/21 Status: Ordered Spiriva Respimat 1.25 mcg/inh inhalation aerosol 2 puffs, Inhalation, Daily, # 4 Gm, 5 Refills, 10/03/21 11:24:00 EDT, [facility], 180, cm, 09/26/21 10:49:00 EDT, Height, 77, kg, 04/20/21 15:47:00 EST, Dry Weight Start Date: 10/03/21 Status: Ordered Symbicort 160mcg/4.5mcg Inhaler 2, puffs, Inhalation, 2 times a day, # 10.2 Gm, Refills 10, Route to Pharmacy Electronically, NCPDP_[id number], [facility], 180, cm, 05/03/21 9:32:00 EST, Height, 77, kg, 04/20/21 15:47:00 EST, Dry Weight Start Date: 05/06/21 Status: Ordered tamsulosin 0.4 mg oral capsule 1, capsule, By Mouth, Daily, # 30 capsule, Refills 4, Tot. Refills 4, Maintenance, 08/25/21 14:22:00 EDT, Route to Pharmacy Electronically, [facility], 180, cm, 08/23/21 9:21:00 EDT, Height, 77, kg, 04/20/21 15:47:00 EST, Dry Weight Start Date: 08/25/21 Status: Ordered traZODone 50 mg oral tablet 100 mg, 2, tablet, By Mouth, Daily at bedtime, # 60 tablet, Refills 5, Tot. Refills 5, Maintenance,08/05/21 10:43:00 EDT, Route to Pharmacy Electronically, [facility], 180, cm, 08/02/21 15:00:00 EDT, Height, 77, kg, 04/20/21 15:47:00 EST, D... Start Date: 08/05/21 Status: Ordered venlafaxine 37.5 mg oral capsule, extended release 37.5 mg, 1, capsule, By Mouth, Daily, # 30 capsule, Refills 0, Tot. Refills 0, Maintenance, 06/27/21 13:03:00 EDT, Route to Pharmacy Electronically, [facility], Partial fill upon patient request if [...]
--- OUTSIDE RECORDS SUMMARY | 2022-09-19 20:54 | XMS_ITS | Continuity of Care Document ---
Author Name Unknown Organization [facility] Trevor lt Address [address] [place] [address]- Care Team Providers Care Electronic Bench Technician Name Role Phone Mike Tristan MD Primary Care Physician [phone] [place] [facility] [place]/15/21 - 03/22/21 [facility] Adult [address] [place] [address]- Attending Physician: Cristian Fortune MD Referring Physician: Mike Tristan MD Allergies, Adverse [...] 01/10/21 16:35:00 EDT, Route to Pharmacy Electronically, [facility], 174, cm, 12/30/20 14:45:00 EDT, Height, 57, kg, 03/19/19 14:07:00 EST, Dry Weight Start Date: 01/10/21 Status: Ordered Aspirin Low Dose 81 mg oral delayed release tablet 1 tablet, By Mouth, Daily, # 30 tablet, 2 Refills, [facility], 174, cm, 01/14/21 15:08:00EDT, Height, 57, kg, 03/19/19 14:07:00 EST, Dry Weight Start Date: 01/25/21 Status: Ordered Augmentin 875 mg-125 mg oral tablet 1 tablet, By Mouth, Every 12 hours, for 10 days, with food or milk, # 20 tablet, 0 Refills, Acute 04/01/21 15:09:00 EST, 03/22/21 15:09:00 EST, Tablet, [facility], Partial fill upon patientrequest if the prescription is for a schedule II op... Start Date: 03/22/21 Stop Date: 04/01/21 Status: Ordered Combivent Respimat 20 mcg-100 mcg/inh inhalation aerosol 1 puffs, Inhalation, 4 times a day, PRN NEEDED FOR WHEEZING OR SHORTNESS OF BREATH, # 4 Gm, 11 Refills, Maintenance, 05/07/20 10:33:00 EST, [facility], 30, 1 puffs Inhalation 4 times a day,PRN: NEEDED FOR WHEEZING OR SHORTNESS OF BREATH... Start Date: 05/07/20 Status: Ordered Coricidin HBP Cough & Cold 4 mg-30 mg oral tablet 1 tablet, By Mouth, 3 times a day, PRN for cold symptoms, # 21 tablet, 0 Refills, Maintenance, 03/18/21 15:02:00 EST, Tablet, [facility], Partial fill upon patient request if the prescription is for a schedule II opioid drug., 1 tablet By Mo... Start Date: 03/18/21 Status: Ordered docusate sodium 100 mg oral capsule 1 capsule = 100 mg, By Mouth, 2 times a day, PRN as needed for constipation, # 100 capsule, 2 Refills, Maintenance, 08/17/20 14:09:00 EDT, Capsule, [facility], Partial fill upon patient request if [...] A DAY, # 16 Gm, 1 Refills, [facility], 30, USE 1 SPRAY IN EACH [...] 1 Refills, Maintenance, 11/30/20 11:11:00 EDT, Capsule, [facility], Partial fill upon patient request if the prescription is for a scheduleII opioid drug., 174, cm, 11/30/20 10:34:00 EDT, He... Start Date: 11/30/20 Status: Ordered losartan 100 mg oral tablet 1 tablet, By Mouth, Daily, # 30 tablet, 11 Refills, Maintenance, 07/12/20 14:44:00 EDT, [facility], 174, cm, 07/12/20 14:32:00 EDT, Height, 57, kg, 03/19/19 14:07:00 EST, Dry Weight Start Date: 07/12/20 Status: Ordered metoprolol 50 mg oral tablet, extended release 50 mg, 1, tablet, By Mouth, Daily, do not crush or chew, # 30 tablet, Refills 11, Tot. Refills 11, Maintenance, 07/12/20 14:44:00 EDT, Route to Pharmacy Electronically, [facility], 174, cm,07/12/20 14:32:00 EDT, Height, 57, kg, 03/19/19 14:... Start Date: 07/12/20 Status: Ordered montelukast 10 mg oral tablet 1, tablet, By Mouth, Daily at bedtime, # 30 tablet, Refills 4, Tot. Refills 0, Maintenance, 10/20/20 11:07:00 EDT, Route to Pharmacy Electronically, [facility], 174, cm, 09/14/20 14:37:00 EDT, Height, 57, kg, 03/19/19 14:07:00 EST, Dry Weight Start Date: 10/20/20 Status: Ordered Nasacort Allergy 24HR 55 mcg/inh nasal spray 2 sprays, Nares, Both, Daily, # 3 each, 0 Refills, Maintenance, 01/08/20 14:50:00 EDT, [facility], 2 sprays Nares, Both Daily, 174, cm, 01/08/20 14:29:00 EDT, Height, 57, kg, 03/19/19 14:07:00 EST, Dry Weight Start Date: 01/08/20 Status: Ordered nicotine 4 mg oral transmucosal lozenge 1 lozenge = 4 mg, By Mouth, Every hour, # 189 lozenge, 11 Refills, Maintenance, 07/12/20 14:49:00 EDT, [facility], 1 lozenge By Mouth Every hour, 174, cm, 07/12/20 14:32:00 EDT, Height, 57,kg, 03/19/19 14:07:00 EST, Dry Weight Start Date: 07/12/20 Status: Ordered omeprazole 20 mg oral enteric coated capsule 1 capsule, By Mouth, Daily, # 14 capsule, 0 Refills, Maintenance, 03/22/21 15:07:00 EST, [facility], 174, cm, 03/22/21 13:58:00 EST, Height Start Date: 03/22/21 Stop Date: 04/05/21 Status: Ordered pravastatin 40 mg oral tablet 1 tablet = 40 mg, By Mouth, Daily, # 90 tablet, 1 Refills, Maintenance, 08/24/20 15:56:00 EDT, Tablet, [facility], 174, cm, 08/17/20 13:45:00 EDT, Height, 57, kg, 03/19/19 14:07:00 EST, DryWeight Start Date: 08/24/20 Status: Ordered predniSONE 20 mg oral tablet See Instructions, 2 tablets daily for 5 days and then 1 tablet daily for 5 days, # 15 tablet, 0 Refills, Maintenance, 03/22/21 15:09:00 EST, [facility], Partial fill upon patient request ifthe prescription is for a schedule II opioid drug.,... Start Date: 03/22/21 Status: Ordered ProAir HFA 90 mcg/inh inhalation aerosol with adapter 2, puffs, Inhalation, Every 6 hours, PRN, # 8.5 Gm, Refills 0, Tot. Refills 0, Maintenance, 03/22/21 15:09:00 EST, Aerosol, Route to Pharmacy Electronically, NCPDP_[id number], [facility], 174, cm, 03/22/21 13:58:00 EST, Height Start Date: 03/22/21 Status: Ordered Remeron 15 mg oral tablet 1 tablet = 15 mg, By Mouth, Daily at bedtime, REPLACES ZOLOFT, # 30 tablet, 1 Refills, Maintenance,06/22/20 15:13:00 EST, Tablet, [facility], Partial fill upon patient request if the prescription is for a schedule II opioid drug., 174, cm,... Start Date: 06/22/20 Status: Ordered Spiriva Respimat 1.25 mcg/inh inhalation aerosol 2 puffs, Inhalation, Daily, # 4 Gm, 11 Refills, Maintenance, 05/25/20 13:51:00 EST, Aerosol, [facility], Partial fill upon patient request if the prescription is for a schedule II opioid drug., 174, cm, 05/07/20 10:13:00 EST, Height, 57, kg,... Start Date: 05/25/20 Status: Ordered Symbicort 160mcg/4.5mcg Inhaler 2, puffs, Inhalation, 2 times a day, # 1 each, Refills 11, Tot. Refills 11, Maintenance, 05/25/20 13:51:00 EST, Aerosol, Route to Pharmacy Electronically, VTPDP_[id number], [facility], 174,cm, 05/07/20 10:13:00 EST, Height, 57, kg, 03/19/19... Start Date: 05/25/20 Status: Ordered tamsulosin 0.4 mg oral capsule 1, capsule, By Mouth, Daily, # 30 capsule, Refills 5, Route to Pharmacy Electronically, [facility], 174, cm, 03/15/21 10:16:00 EST, Height, 57, kg, 03/19/19 14:07:00 EST, Dry Weight Start Date: 03/15/21 Status: Ordered traZODone 50 mg oral tablet 100 mg, 2, tablet, By Mouth, Daily at bedtime, # 60 tablet, Refills 11, Tot. Refills 11, Maintenance, 07/12/20 14:43:00 EDT, Route to Pharmacy Electronically, [facility], 174, cm, 07/12/20 14:32:00 EDT, Height, 57, kg, 03/19/19 14:07:00 EST,... Start Date: 07/12/20 Status: Ordered Tylenol Extra Strength 500 mg oral tablet See Instructions, PRN for pain, 1 or 2 tablet By Mouth 3 times a day PER DR TRISTAN, # 100 tablet, 11 Refills, Maintenance, 06/08/20 10:22:00 EST, Tablet, [facility], 174, cm, 06/08/20 9:48:00 EST, Height, [...] oldest [Reference Range]: 1 Height 174 cm (03/15/21 10:16 AM) Temperature [96.8-100.4 DegF] 96.6 DegF *L* (03/15/21 10:16 AM) Social History Social History Type Response Smoking Status 5-9 cigarettes (betw een 1/4 to 1/2 pack)/day in last 30 days entered on: 05/26/19 Sex
--- OUTSIDE RECORDS SUMMARY | 2022-09-19 20:54 | XMS_ITS | Continuity of Care Document ---
Author Name Unknown Organization [facility] lt Address [address] [place] [address]- Care Team Providers Care Tower Helper Name Role Phone Mike Kruse MD Primary Care Physician [phone] Encounter [facility] Date(s): 02/03/22 - 03/05/22 [facility] Adult [address] [place] [address]- Allergies, Adverse Reactions, Alerts Substance Reaction Severity Status lisinopril Atenolol Trisha norvegensis Active cloNIDine Active Immunizations Given and Recorded Vaccine Date Status Refusal Reason [id number] 12y+ bivalent booster vax 1 01/20/22 Given [...] Recorded 1Result Comment: [facility] [id number] 2Location History: [facility] 3Result Comment: [11/22/2016] [facility] 4Result Comment: [03/20/2016] [facility] Medications acetaminophen 325 mg oral tablet 650 mg, 2, tablet, By Mouth, Every 4 hours, PRN, # 30 tablet, Refills 0, Tot. Refills 0, Maintenance, Pain , Mild, 02/21/22 15:17:00 EST, Route to Pharmacy Electronically, [facility], Partial fill upon patient request if the prescription... Start Date: 02/21/22 Status: Ordered albuterol 0.083% inhalation solution 3 mL = 2.5 mg, Inhalation, Every 6 hours, PRN for wheezing, # 60 each, 5 Refills, Maintenance, 10/28/21 14:18:00 EDT, Solution, [facility]/pharmacy #1230, 165, cm, 10/28/21 4:51:00 EDT, Height, 60.5, kg, 10/26/21 13:16:00 EDT, Dry Weight Start Date: 10/28/21 Status: Ordered amLODIPine 5 mg oral tablet 1 tablet, By Mouth, Daily, # 90 tablet, 1 Refills, Maintenance, 02/09/22 12:58:00 EDT, [id number], 163, cm, 02/07/22 18:18:00 EDT, Height, 60, kg, 02/07/22 15:54:00 EDT, Dry Weight Start Date: 02/09/22 Status: Ordered Aspirin Low Dose 81 mg oral delayed release tablet 1 tablet, By Mouth, Daily, # 30 tablet, 11 Refills, 10/19/21 9:10:00 EDT, [facility]/pharmacy #1230, 180, cm, 09/26/21 [...] each, 5 Refills, Maintenance, 12/19/21 15:27:00 EDT, [facility], 30, USE 1 SPRAY IN EACH NOSTRIL TWICE A DAY, 162, cm, 12/16/21 14:39:00 EDT, Height, 59.5, kg, 12/16/21 0:28:00... Start Date: 12/19/21 Status: Ordered guaiFENesin 400 mg oral tablet 1 tablet = 400 mg, By Mouth, 4 times a day, # 120 tablet, 5 Refills, Maintenance, 10/28/21 14:19:00EDT, Tablet, [facility]/pharmacy #1230, 165, cm, 10/28/21 [...] tablet, 4 Refills, Maintenance, 12/23/21 13:25:00 EDT, [facility], 162, cm, 12/16/21 14:39:00 EDT, Height, 59.5, kg, 12/16/21 0:28:00 EDT, Dry Weight Start Date: 12/23/21 Status: Ordered magnesium oxide 400 mg oral tablet 1 tablet, By Mouth, Daily, # 30 tablet, 6 Refills, Maintenance, 10/19/21 9:10:00 EDT, [facility]/pharmacy #1230, 180, cm, 09/26/21 10:49:00 EDT, Height, 77, kg, 04/20/21 15:47:00 EST, Dry Weight Start Date: 10/19/21 Stop Date: 10/19/21 Status: Ordered Metoprolol Succinate ER 50 mg oral tablet, extended release 1 tablet, By Mouth, Daily, INSTR:DO NOT CRUSH OR CHEW, # 30 tablet, 5 Refills, 10/19/21 9:10:00 EDT, [facility]/pharmacy #1230, 180, cm, 09/26/21 10:49:00 EDT, Height, 77, kg, 04/20/21 15:47:00 EST, Dry Weight Start Date: 10/19/21 Status: Ordered MiraLax oral powder for reconstitution = 17 Gm, By Mouth, 2 times a day, dissolve in water before taking, # 527 Gm, 11 Refills, Maintenance, 10/19/21 9:10:00 EDT, REC Powder, [facility]/pharmacy #1230, Partial fill upon patient request if the prescription is for a schedule II opioid drug., 17 Gm... Start Date: 10/19/21 Status: Ordered montelukast 10 mg oral tablet See Instructions, TAKE 1 TABLET BY MOUTH EVERY DAY AT BEDTIME, # 30 tablet, Refills 11, Tot. Refills 11, Maintenance, 01/20/22 14:03:00 EDT, Instructions Replace Required Details, Route to Pharmacy Electronically, [facility]/pharmacy #1230, 162, cm, 01/20/22... Start Date: 01/20/22 Status: Ordered omeprazole 20 mg oral delayed release tablet 1 tablet = 20 mg, By Mouth, Daily, # 30 tablet, 11 Refills, Maintenance, 07/10/22 15:48:00 EDT, CR Tablet, [facility]/pharmacy #1230, Partial fill upon [...] 15:17:00 EST, Route to Pharmacy Electronically, [facility], Partial fill upon patient request if the prescription... Start Date: 02/21/22 Status: Ordered Plavix 75 mg oral tablet 75 mg, 1, tablet, By Mouth, Daily, # 90 tablet, Refills 1, Tot. Refills 1, Maintenance, 11/18/21 16:53:00 EDT, Route to Pharmacy Electronically, [facility]/pharmacy #1230, Partial fill upon patient request if the prescription is for a schedule II opioid drug... Start Date: 11/18/21 Status: Ordered pravastatin 40 mg oral tablet See Instructions, TAKE 1 TABLET BY MOUTH EVERY DAY, # 30 tablet, 5 Refills, Maintenance, 12/19/21 15:29:00 EDT, [facility], 162, cm, 12/16/21 14:39:00 EDT, Height, 59.5, kg, 12/16/21 0:28:00 EDT, Dry Weight Start Date: 12/19/21 Status: Ordered ProAir HFA 90 mcg/inh inhalation aerosol with adapter 2, puffs, Inhalation, Every 6 hours, PRN, # 8.5 Gm, Refills 1, Tot. Refills 1, 12/13/21 12:40:00 EDT, Route to Pharmacy Electronically, [id number], [facility],162, cm, 12/13/21 4:46:00 EDT, Height, 60.3, kg, 08... Start Date: 12/13/21 Status: Ordered riboflavin 400 mg oral capsule 1 capsule = 400 mg, By Mouth, Daily, # 30 capsule, 5 Refills, Maintenance, 10/19/21 9:10:00 EDT, [facility]/pharmacy #1230, Partial fill upon patient request if the prescription is for a schedule II opioid drug., 180, cm, 09/26/21 10:49:00 EDT, Height, 77, k... Start Date: 10/19/21 Status: Ordered SEROquel 25 mg oral tablet 25 mg, 1, tablet, By Mouth, Daily at bedtime, # 30 tablet, Refills 5, Tot. Refills 5, Maintenance, 10/28/21 14:23:00 EDT, [facility] 165, cm, 10/28/21 4:51:00 EDT, Height, 60.5, kg, 10/26/21 13:16:00 EDT, Dry... Start Date: 10/28/21 Status: Ordered Spiriva Respimat 1.25 mcg/inh inhalation aerosol 2 puffs, Inhalation, Daily, # 4 Gm, 5 Refills, 10/19/21 9:10:00 EDT, [facility]/pharmacy #1230, 180, cm, 09/26/21 10:49:00 EDT, Height, 77, kg, 04/20/21 15:47:00 EST, Dry Weight Start Date: 10/19/21 Status: Ordered Symbicort 160mcg/4.5mcg Inhaler 2, puffs, Inhalation, 2 times a day, # 10.2 Gm, Refills 10, Tot. Refills 10, 10/19/21 9:10:00 EDT, Route to Pharmacy Electronically, [id number], [facility]/pharmacy #1230, 180, cm,09/26/21 10:49:00 EDT, Height, 77, kg, 04/20/21 15:... Start Date: 10/19/21 Status: Ordered tamsulosin 0.4 mg oral capsule 1, capsule, By Mouth, Daily, # 30 capsule, Refills 4, Tot. Refills 4, Maintenance, 10/19/21 9:10:00EDT, [facility], [facility] 180, cm, 09/26/21 10:49:00 EDT, [...] Refills, Soft Stop, 02/07/22 18:30:00 EDT, Tablet, [facility]/pharmacy #1230, Partial fill upon [...] Team Personnel Name: Ana West RN Position: [facility] RN Member Role: Primary Care Nurse Name: Odalys Orozco RN Position: [facility] RN Member Role: Primary Care Nurse Name: Mike Kruse MD Position: [facility] Primary Care Physician Member Role: PCP Address: Address: [address] [place] [address]- Name: Maryam Valenzuela RN Position: [facility] RN Member Role: Primary Care Nurse Name: Deandre Lara LPN Position: [facility] RN Member Role: [...] Persons Name: ENA SOTO Address: home [address] [place] [address] Name: ELISA TOMPKINS Address: [place] [address] Name: JOSE RAFAEL LI
--- OUTSIDE RECORDS SUMMARY | 2022-09-19 20:54 | XMS_ITS | Continuity of Care Document ---
Author Name Unknown Organization [facility] Trevor lt Address [address] [place] [address]- Care Team Providers Care Open Hearth Helper Name Role Phone Mike Tristan MD Primary Care Physician [phone] Encounter [facility] Date(s): 02/23/21 - 04/02/21 [facility] Adult [address] [place] [address]- Attending Physician: Mike Tristan MD Allergies, Adverse [...] 01/10/21 16:35:00 EDT, Route to Pharmacy Electronically, [facility], 174, cm, 12/30/20 14:45:00 EDT, Height, 57, kg, 03/19/19 14:07:00 EST, Dry Weight Start Date: 01/10/21 Status: Ordered Aspirin Low Dose 81 mg oral delayed release tablet 1 tablet, By Mouth, Daily, # 30 tablet, 2 Refills, [facility], 174, cm, 01/14/21 15:08:00EDT, Height, 57, kg, 03/19/19 14:07:00 EST, Dry Weight Start Date: 01/25/21 Status: Ordered Combivent Respimat 20 mcg-100 mcg/inh inhalation aerosol 1 puffs, Inhalation, 4 times a day, PRN NEEDED FOR WHEEZING OR SHORTNESS OF BREATH, # 4 Gm, 11 Refills, Maintenance, 05/07/20 10:33:00 EST, [facility], 30, 1 puffs Inhalation 4 times a day,PRN: NEEDED FOR WHEEZING OR SHORTNESS OF BREATH... Start Date: 05/07/20 Status: Ordered Coricidin HBP Cough & Cold 4 mg-30 mg oral tablet 1 tablet, By Mouth, 3 times a day, PRN for cold symptoms, # 21 tablet, 0 Refills, Maintenance, 03/18/21 15:02:00 EST, Tablet, [facility], Partial fill [...] A DAY, # 16 Gm, 1 Refills, [facility], 30, USE 1 SPRAY IN EACH [...] 1 Refills, Maintenance, 11/30/20 11:11:00 EDT, Capsule, [facility], Partial fill upon patient request if the prescription is for a scheduleII opioid drug., 174, cm, 11/30/20 10:34:00 EDT, He... Start Date: 11/30/20 Status: Ordered losartan 100 mg oral tablet 1 tablet, By Mouth, Daily, # 30 tablet, 11 Refills, Maintenance, 07/12/20 14:44:00 EDT, [facility], 174, cm, 07/12/20 14:32:00 EDT, Height, 57, kg, 03/19/19 14:07:00 EST, Dry Weight Start Date: 07/12/20 Status: Ordered metoprolol 50 mg oral tablet, extended release 50 mg, 1, tablet, By Mouth, Daily, do not crush or chew, # 30 tablet, Refills 11, Tot. Refills 11, Maintenance, 07/12/20 14:44:00 EDT, Route to Pharmacy Electronically, [facility], 174, cm,07/12/20 14:32:00 EDT, Height, 57, kg, 03/19/19 14:... Start Date: 07/12/20 Status: Ordered montelukast 10 mg oral tablet 1, tablet, By Mouth, Daily at bedtime, # 30 tablet, Refills 4, Tot. Refills 0, Maintenance, 10/20/20 11:07:00 EDT, Route to Pharmacy Electronically, [facility], 174, cm, 09/14/20 14:37:00 EDT, Height, 57, kg, 03/19/19 14:07:00 EST, Dry Weight Start Date: 10/20/20 Status: Ordered Nasacort Allergy 24HR 55 mcg/inh nasal spray 2 sprays, Nares, Both, Daily, # 3 each, 0 Refills, Maintenance, 01/08/20 14:50:00 EDT, [facility], 2 sprays Nares, Both Daily, 174, cm, 01/08/20 14:29:00 EDT, Height, 57, kg, 03/19/19 14:07:00 EST, Dry Weight Start Date: 01/08/20 Status: Ordered nicotine 4 mg oral transmucosal lozenge 1 lozenge = 4 mg, By Mouth, Every hour, # 189 lozenge, 11 Refills, Maintenance, 07/12/20 14:49:00 EDT, [facility], 1 lozenge By Mouth Every hour, 174, cm, 07/12/20 14:32:00 EDT, Height, 57,kg, 03/19/19 14:07:00 EST, Dry Weight Start Date: 07/12/20 Status: Ordered omeprazole 20 mg oral enteric coated capsule 1 capsule, By Mouth, Daily, # 14 capsule, 0 Refills, Maintenance, 03/22/21 15:07:00 EST, [facility], 174, cm, 03/22/21 13:58:00 EST, Height Start Date: 03/22/21 Stop Date: 04/05/21 Status: Ordered pravastatin 40 mg oral tablet 1 tablet = 40 mg, By Mouth, Daily, # 90 tablet, 1 Refills, Maintenance, 08/24/20 15:56:00 EDT, Tablet, [facility], 174, cm, 08/17/20 13:45:00 EDT, Height, 57, kg, 03/19/19 14:07:00 EST, DryWeight Start Date: 08/24/20 Status: Ordered predniSONE 20 mg oral tablet See Instructions, 2 tablets daily for 5 days and then 1 tablet daily for 5 days, # 15 tablet, 0 Refills, Maintenance, 03/22/21 15:09:00 EST, [facility], Partial fill upon patient request ifthe prescription is for a schedule II opioid drug.,... Start Date: 03/22/21 Status: Ordered ProAir HFA 90 mcg/inh inhalation aerosol with adapter 2, puffs, Inhalation, Every 6 hours, PRN, # 8.5 Gm, Refills 0, Tot. Refills 0, Maintenance, 03/22/21 15:09:00 EST, Aerosol, Route to Pharmacy Electronically, [id number], [facility], 174, cm, 03/22/21 13:58:00 EST, Height [...] 13:51:00 EST, Aerosol, Route to Pharmacy Electronically, [id number], [facility], 174,cm, 05/07/20 10:13:00 EST, Height, 57, kg, 03/19/19... Start Date: 05/25/20 Status: Ordered tamsulosin 0.4 mg oral capsule 1, capsule, By Mouth, Daily, # 30 capsule, Refills 5, Route to Pharmacy Electronically, [facility], 174, cm, 03/15/21 10:16:00 EST, Height, 57, kg, 03/19/19 14:07:00 EST, Dry Weight Start Date: 03/15/21 Status: Ordered traZODone 50 mg oral tablet 100 mg, 2, tablet, By Mouth, Daily at bedtime, # 60 tablet, Refills 11, Tot. Refills 11, Maintenance, 07/12/20 14:43:00 EDT, Route to Pharmacy Electronically, [facility], 174, cm, 07/12/20 14:32:00 EDT, Height, 57, kg, 03/19/19 14:07:00 EST,... Start Date: 07/12/20 Status: Ordered Tylenol Extra Strength 500 mg oral tablet See Instructions, PRN for pain, 1 or 2 tablet By Mouth 3 times a day PER DR TRSITAN, # 100 tablet, 11 Refills, Maintenance, 06/08/20 10:22:00 EST, Tablet, [facility], 174, cm, 06/08/20 9:48:00 EST, [...]
--- OUTSIDE RECORDS SUMMARY | 2022-09-19 20:54 | XMS_ITS | Continuity of Care Document ---
Author Name Unknown Organization [facility] Trevor lt Address [address] [place] [address]- Care Team Providers Care Family Service Counselor Name Role Phone Mike Kruse MD Primary Care Physician [phone] Encounter [facility] Date(s): 03/22/21 - 04/21/21 [facility] Adult [address] [place] [address]- Allergies, Adverse Reactions, Alerts Substance Reaction Severity [...] 23-valent vaccine 12/29/08 Recorded pneumococcal 13-valent vaccine 1/26/15 Given tetanus/diphtheria/pertussis, acel(Tdap) 04/01/09 Recorded 1Location History: [facility] 2Result Comment: [11/22/2016] [facility] 3Result Comment: [03/20/2016] [facility] Medications albuterol 0.083% inhalation solution 6 mL = 5 mg, Inhalation, Every 6 hours, PRN for wheezing, # 60 each, 0 Refills, Maintenance, 04/18/21 13:45:00 EST, Solution, [facility], Partial fill upon patient request if the prescription is for a schedule II opioid drug., 174, cm, 04/14... Start Date: 04/18/21 Status: Ordered amLODIPine 5 mg oral tablet 5 mg, 1, tablet, By Mouth, Daily, # 90 tablet, Refills 1, Tot. Refills 1, Soft Stop, 04/12/21 8:59:00 EST, Route to Pharmacy Electronically, [facility], 174, cm, 03/22/21 13:58:00 EST, Height Start Date: 04/12/21 Status: Ordered Combivent Respimat 20 mcg-100 mcg/inh inhalation aerosol 1 puffs, Inhalation, 4 times a day, PRN NEEDED FOR WHEEZING OR SHORTNESS OF BREATH, # 4 Gm, 11 Refills, Maintenance, 05/07/20 10:33:00 EST, [facility], 30, 1 puffs Inhalation 4 times a day,PRN: NEEDED FOR WHEEZING OR SHORTNESS OF BREATH... Start Date: 05/07/20 Status: Ordered fluticasone 50 mcg/inh nasal spray See Instructions, USE 1 SPRAY IN EACH NOSTRIL TWICE A DAY, # 16 Gm, 1 Refills, [facility], 30, USE 1 SPRAY IN EACH NOSTRIL TWICE A DAY, 174, cm, 03/15/21 10:16:00 EST, Height, 57, kg, 03/19/19 14:07:00 EST, Dry Weight Start Date: 03/15/21 Status: Ordered losartan 100 mg oral tablet 1 tablet, By Mouth, Daily, # 30 tablet, 11 Refills, Maintenance, 07/12/20 14:44:00 EDT, [facility], 174, cm, 07/12/20 14:32:00 EDT, Height, 57, kg, 03/19/19 14:07:00 EST, Dry Weight Start Date: 07/12/20 Status: Ordered metoprolol 50 mg oral tablet, extended release 50 mg, 1, tablet, By Mouth, Daily, do not crush or chew, # 30 tablet, Refills 11, Tot. Refills 11, Maintenance, 07/12/20 14:44:00 EDT, Route to Pharmacy Electronically, [facility], 174, cm,07/12/20 14:32:00 EDT, Height, 57, kg, 03/19/19 14:... Start Date: 07/12/20 Status: Ordered montelukast 10 mg oral tablet 1, tablet, By Mouth, Daily at bedtime, # 30 tablet, Refills 5, Route to Pharmacy Electronically, [facility], 174, cm, 03/22/21 13:58:00 EST, Height Start Date: 04/07/21 Status: Ordered pravastatin 40 mg oral tablet 1 tablet = 40 mg, By Mouth, Daily, # 90 tablet, 1 Refills, Maintenance, 08/24/20 15:56:00 EDT, Tablet, [facility], 174, cm, 08/17/20 13:45:00 EDT, Height, 57, kg, 03/19/19 14:07:00 EST, DryWeight Start Date: 08/24/20 Status: Ordered ProAir HFA 90 mcg/inh inhalation aerosol with adapter 2, puffs, Inhalation, Every 6 hours, PRN, # 8.5 Gm, Refills 6, Route to Pharmacy Electronically, [id number]_[id number], [facility], 174, cm, 04/14/21 14:32:00 EST, Height [...] 11 Refills, Maintenance, 05/25/20 13:51:00 EST, Aerosol, [facility], Partial fill upon patient request if the prescription is for a schedule II opioid drug., 174, cm, 05/07/20 10:13:00 EST, Height, 57, kg,... Start Date: 05/25/20 Status: Ordered Symbicort 160mcg/4.5mcg Inhaler 2, puffs, Inhalation, 2 times a day, # 1 each, Refills 11, Tot. Refills 11, Maintenance, 05/25/20 13:51:00 EST, Aerosol, Route to Pharmacy Electronically, [id number], [facility], 174,cm, 05/07/20 10:13:00 EST, Height, 57, kg, 03/19/19... Start Date: 05/25/20 Status: Ordered tamsulosin 0.4 mg oral capsule 1, capsule, By Mouth, Daily, # 30 capsule, Refills 5, Route to Pharmacy Electronically, [facility], 174, cm, 03/15/21 10:16:00 EST, Height, 57, kg, 03/19/19 14:07:00 EST, Dry Weight Start Date: 03/15/21 Status: Ordered traZODone 50 mg oral tablet 100 mg, 2, tablet, By Mouth, Daily at bedtime, # 60 tablet, Refills 11, Tot. Refills 11, Maintenance, 07/12/20 14:43:00 EDT, Route to Pharmacy Electronically, [facility], 174, cm, 07/12/20 14:32:00 EDT, Height, [...] last 30 days entered on: 05/26/19 Sex Male
--- OUTSIDE RECORDS SUMMARY | 2022-09-19 20:54 | XMS_ITS | Continuity of Care Document ---
Author Name Unknown Organization [facility] Trevor lt Address [address] [place] [address]- Care Team Providers Care Commercial Census Taker Name Role Phone Mike Kruse MD Primary Care Physician [phone] Encounter [facility] Date(s): 06/27/21 - 07/04/21 [facility] Adult [address] [place] [address]- Encounter Diagnosis Anxiety(Discharge Diagnosis) - 06/27/21 Attending Physician: Mirtha HOOD, Rachell Bennett Allergies, [...] 2 Refills, Maintenance, 06/09/21 16:40:00 EST, Solution, [facility], Partial fill upon patient request if the prescription is for a schedule II opioid drug., 180, cm, .. Start Date: 06/09/21 Status: Ordered amLODIPine 5 mg oral tablet 5 mg, 1, tablet, By Mouth, Daily, # 90 tablet, Refills 1, Tot. Refills 1, Soft Stop, 04/12/21 8:59:00 EST, Route to Pharmacy Electronically, [facility], 174, cm, 03/22/21 13:58:00 EST, Height Start Date: 04/12/21 Status: Ordered Aspirin Low Dose 81 mg oral delayed release tablet 1 tablet, By Mouth, Daily, # 30 tablet, 11 Refills, [facility], 180, cm, 05/03/21 9:32:00EST, Height, 77, kg, 04/20/21 15:47:00 EST, Dry Weight Start Date: 05/06/21 Status: Ordered Combivent Respimat 20 mcg-100 mcg/inh inhalation aerosol 1 puffs, Inhalation, 4 times a day, PRN NEEDED FOR WHEEZING OR SHORTNESS OF BREATH, # 4 Gm, 5 Refills, Maintenance, 05/10/21 11:08:00 EST, [facility], 30, 1 puffs Inhalation 4 times a day,PRN: NEEDED FOR WHEEZING OR SHORTNESS OF BREATH,... Start Date: 05/10/21 Status: Ordered fluticasone 50 mcg/inh nasal spray See Instructions, USE 1 SPRAY IN EACH NOSTRIL TWICE A DAY, # 16 Gm, 5 Refills, [facility], 30, USE 1 SPRAY IN EACH NOSTRIL TWICE A DAY, 180, cm, 05/03/21 9:32:00 EST, Height, 77, kg, 04/20/21 15:47:00 EST, Dry Weight Start Date: 05/10/21 Status: Ordered losartan 100 mg oral tablet 1 tablet, By Mouth, Daily, # 30 tablet, 11 Refills, Maintenance, 07/12/20 14:44:00 EDT, [facility], 174, cm, 07/12/20 14:32:00 EDT, Height, 57, kg, 03/19/19 14:07:00 EST, Dry Weight Start Date: 07/12/20 Status: Ordered metoprolol 50 mg oral tablet, extended release 50 mg, 1, tablet, By Mouth, Daily, do not crush or chew, # 30 tablet, Refills 11, Tot. Refills 11, Maintenance, 07/12/20 14:44:00 EDT, Route to Pharmacy Electronically, [facility], 174, cm,07/12/20 14:32:00 EDT, Height, 57, kg, 03/19/19 14:... Start Date: 07/12/20 Status: Ordered montelukast 10 mg oral tablet 1, tablet, By Mouth, Daily at bedtime, # 30 tablet, Refills 5, Route to Pharmacy Electronically, [facility], 174, cm, 03/22/21 13:58:00 EST, Height Start Date: 04/07/21 Status: Ordered Nebulizer/Compressor See Instructions, # 1 each, Maintenance, Use up to qid Dx. copd Include tubing and mouthpiece, 04/29/21 14:42:00 EST, Supply Start Date: 04/29/21 Status: Ordered pravastatin 40 mg oral tablet 1 tablet = 40 mg, By Mouth, Daily, # 90 tablet, 1 Refills, Maintenance, 05/10/21 10:26:00 EST, Tablet, [facility], 180, cm, 05/03/21 9:32:00 EST, Height, 77, kg, 04/20/21 15:47:00 EST, Dry Weight Start Date: 05/10/21 Status: Ordered ProAir HFA 90 mcg/inh inhalation aerosol with adapter 2, puffs, Inhalation, Every 6 hours, PRN, # 8.5 Gm, Refills 6, Route to Pharmacy Electronically, [id number]_[id number], [facility], 174, cm, 12/30/21 14:32:00 EST, Height Start Date: 04/18/21 Status: Ordered Spiriva Respimat 1.25 mcg/inh inhalation aerosol 2 puffs, Inhalation, Daily, # 4 Gm, 5 Refills, [facility], 180, cm, 05/03/21 9:32:00 EST,Height, 77, kg, 04/20/21 15:47:00 EST, Dry Weight Start Date: 05/05/21 Status: Ordered Symbicort 160mcg/4.5mcg Inhaler 2, puffs, Inhalation, 2 times a day, # 10.2 Gm, Refills 10, Route to Pharmacy Electronically, [id number]_[id number], [facility], 180, cm, 05/03/21 9:32:00 EST, Height, 77, kg, 04/20/21 15:47:00 EST, Dry Weight Start Date: 05/06/21 Status: Ordered tamsulosin 0.4 mg oral capsule 1, capsule, By Mouth, Daily, # 30 capsule, Refills 5, Route to Pharmacy Electronically, [facility], 174, cm, 03/15/21 10:16:00 EST, Height, 57, kg, 03/19/19 14:07:00 EST, Dry Weight Start Date: 03/15/21 Status: Ordered traZODone 50 mg oral tablet 100 mg, 2, tablet, By Mouth, Daily at bedtime, # 60 tablet, Refills 11, Tot. Refills 11, Maintenance, 07/12/20 14:43:00 EDT, Route to Pharmacy Electronically, [facility], 174, cm, 07/12/20 14:32:00 EDT, Height, 57, kg, 03/19/19 14:07:00 EST,... Start Date: 07/12/20 Status: Ordered venlafaxine 37.5 mg oral capsule, extended release 37.5 mg, 1, capsule, By Mouth, Daily, # 30 capsule, Refills 0, Tot. Refills 0, Maintenance, 06/27/21 13:03:00 EDT, Route to Pharmacy Electronically, [facility], Partial fill upon patient [...] Clini gabriel Service Informant Anxiety Discharge Diagnosis 06/27/21 Vital Signs Most recent to oldest [Reference Range]: 1 Height 180 cm (06/27/21 12:02 PM) Social History Social History Type Response Smoking Status 5-9 cigarettes (betw een 1/4 to 1/2 pack)/day in last 30 days entered on: 05/26/19 Sex
--- OUTSIDE RECORDS SUMMARY | 2022-09-19 20:54 | XMS_ITS | Continuity of Care Document ---
Author Name Unknown Organization [facility] Trevor lt Address [address] [place] [address]- Care Team Providers Care General Administrator Name Role Phone iMke Tristan MD Primary Care Physician Encounter [facility] Date(s): 05/24/20 - 06/23/20 [facility] Adult [address] [place] [address]- Allergies, Adverse Reactions, Alerts Substance Reaction Severity [...] 05/05/20 13:45:00 EST, Route to Pharmacy Electronically, [facility], 174, cm, 03/01/20 11:26:00 EST, Height, 57, kg, 03/19/19 14:07:00 EST, Dry Weight Start Date: 05/05/20 Status: Ordered aspirin 81 mg oral tablet 1 tablet = 81 mg, By Mouth, Daily, PER DR TRISTAN, # 30 tablet, 5 Refills, Maintenance, 10/13/19 13:42:00 EDT, Tablet, [facility], 174, cm, 10/01/19 13:58:00 EDT, Height, 57, kg, 03/19/19 14:07:00 EST, Dry Weight Start Date: 10/13/19 Status: Ordered ASPIRIN LOW 81MG EC ASPIRIN LOW 81MG EC, 1, tablet, By Mouth, Daily, # 30 tablet, 4 Refills, Maintenance, 04/28/20 8:42:00 EST, 174, cm, 03/01/20 11:26:00 EST, Height, 57, kg, 03/19/19 14:07:00 EST, Dry Weight Start Date: 04/28/20 Status: Ordered Combivent Respimat 20 mcg-100 mcg/inh inhalation aerosol 1 puffs, Inhalation, 4 times a day, PRN NEEDED FOR WHEEZING OR SHORTNESS OF BREATH, # 4 Gm, 11 Refills, Maintenance, 05/07/20 10:33:00 EST, [facility], 30, 1 puffs Inhalation 4 times a day,PRN: NEEDED FOR WHEEZING OR SHORTNESS OF BREATH... Start Date: 05/07/20 Status: Ordered ENSURE CHOCOLATE ENSURE CHOCOLATE, See Instructions, # 1 box, Refills 0, Tot. Refills 0, Maintenance, drink 2 ensuredaily dx code: r63.0 R63.4 , 08/31/17 9:38:21 EDT, Compound Start Date: 08/31/17 Status: Ordered Flomax 0.4 mg oral capsule 0.4 mg, 1, capsule, By Mouth, Daily, # 30 capsule, Refills 5, Tot. Refills 5, Maintenance, 04/27/2113:59:00 EST, Route to Pharmacy Electronically, [facility], 174, cm, 03/01/20 11:26:00 EST, Height, 57, kg, 03/19/19 14:07:00 EST, Dry Weight Start Date: 04/27/20 Status: Ordered fluticasone 50 mcg/inh nasal spray See Instructions, INSTILL 1 SPRAY INTO EACH NOSTRIL TWICE DAILY, # 16 Gm, 2 Refills, Maintenance, [facility], 30, INSTILL 1 SPRAY INTO EACH NOSTRIL TWICE DAILY, 174, cm, 03/01/20 11:26:00 EST, Height, 57, kg, 03/19/19 14:07:00 EST, Dry Weight Start Date: 05/06/20 Status: Ordered hydrocortisone 1% topical cream 1 application, Topically, 2 times a day, apply in a thin film to the affected skin and rub in gently and completely, # 30 Gm, 0 Refills, Maintenance, 10/15/17 14:37:33 EDT, Cream, 1 application Topically 2 times a day,Instr:apply in a thin film to the... Start Date: 10/15/17 Status: Ordered losartan 100 mg oral tablet 1 tablet, By Mouth, Daily, # 30 tablet, 0 Refills, Maintenance, 05/06/20 8:04:00 EST, [facility], 174, cm, 03/01/20 11:26:00 EST, Height, 57, kg, 03/19/19 14:07:00 EST, Dry Weight Start Date: 05/06/20 Status: Ordered metoprolol 50 mg oral tablet, extended release 50 mg, 1, tablet, By Mouth, Daily, do not crush or chew, # 30 tablet, Refills 2, Tot. Refills 2, Maintenance, 10/14/19 8:46:00 EDT, Route to Pharmacy Electronically, [facility], 174, cm, 10/01/19 13:58:00 EDT, Height, 57, kg, 03/19/19 14:07:... Start Date: 10/14/19 Status: Ordered Nasacort Allergy 24HR 55 mcg/inh nasal spray 2 sprays, Nares, Both, Daily, # 3 each, 0 Refills, Maintenance, 01/08/20 14:50:00 EDT, [facility], 2 sprays Nares, Both Daily, 174, [...] 1 Refills, Maintenance, 03/23/20 10:59:00 EST, Tablet, [facility], 174, cm, 03/01/20 11:26:00 EST, Height, 57, kg, 03/19/19 14:07:00 EST, DryWeight Start Date: 03/23/20 Status: Ordered PriLOSEC OTC 20 mg oral delayed release tablet 1 tablet = 20 mg, By Mouth, Daily, # 14 tablet, 0 Refills, Maintenance, 06/08/20 10:27:00 EST, EC Tablet, [facility], Partial fill upon patient request if the prescription is for a scheduleII opioid drug., 174, cm, 06/08/20 9:48:00 EST, Hei... Start Date: 06/08/20 Stop Date: 06/22/20 Status: Ordered Remeron 15 mg oral tablet 1 tablet = 15 mg, By Mouth, Daily at bedtime, REPLACES ZOLOFT, # 30 tablet, 1 Refills, Maintenance,06/22/20 15:13:00 EST, Tablet, [facility], Partial fill upon patient request if the prescription is for a schedule II opioid drug., 174, cm,... Start Date: 06/22/20 Status: Ordered Singulair 10 mg oral tablet 10 mg, 1, tablet, By Mouth, Daily at bedtime, PER ARPIT DUNN, # 30 tablet, Refills 5, Tot. Refills 5, Maintenance, 05/05/20 13:42:00 EST, Route to Pharmacy Electronically, [facility], 174, cm, 03/01/20 11:26:00 EST, Height, [...] 13:51:00 EST, Aerosol, Route to Pharmacy Electronically, [id number], [facility], 174,cm, 05/07/20 10:13:00 EST, Height, 57, kg, 03/19/19... Start Date: 05/25/20 Status: Ordered traZODone 50 mg oral tablet 100 mg, 2, tablet, By Mouth, Daily at bedtime, # 60 tablet, Refills 5, Tot. Refills 5, Maintenance,03/08/20 9:08:00 EST, Route to Pharmacy Electronically, [facility], 174, cm, 03/01/20 11:26:00 EST, Height, 57, kg, 03/19/19 14:07:00 EST, .. Start Date: 03/08/20 Status: Ordered Tylenol Extra Strength 500 mg oral tablet See Instructions, PRN for pain, 1 or 2 tablet By Mouth 3 times a day PER DR TRISTAN, # 100 tablet, 11 Refills, Maintenance, 06/08/20 10:22:00 EST, Tablet, [facility], 174, cm, 06/08/20 9:48:00 EST, Height, 57, kg, 03/19/19 14:07:00 EST, Dry Weight Start Date: 06/08/20 Status: Ordered ZyrTEC 10 mg oral tablet 1 tablet = 10 mg, By Mouth, Daily, # 30 tablet, 5 Refills, Maintenance, 03/08/20 8:02:00 EST, Tablet, [facility], 174, cm, 03/01/20 11:26:00 EST, [...]
--- OUTSIDE RECORDS SUMMARY | 2022-09-19 20:54 | XMS_ITS | Continuity of Care Document ---
Author Name Unknown Organization [facility] Trevor lt Address [address] [place] [address]- Care Team Providers Care Film Vault Supervisor Name Role Phone Mike Tristan MD Primary Care Physician [facility]counter [facility] Date(s): 12/19/19 - 01/18/20 [facility] Adult [address] [place] [address]- [facility] Allergies, Adverse Reactions, Alerts Substance Reaction Severity [...] 12:49:00 EDT, Aerosol, Route to Pharmacy Electronically, NCPDP_[id number], [facility], 174, cm, 10/01/19 13:58:00 EDT, Height, 57, kg, 03/19... Start Date: 11/17/19 Status: Ordered amLODIPine 5 mg oral tablet 5 mg, 1, tablet, By Mouth, Daily, # 90 tablet, Refills 3, Tot. Refills 3, Soft Stop, 02/10/19 13:40:35 EDT, Route to Pharmacy Electronically, NCPDP_[id number], [facility] Start Date: 02/10/19 Stop Date: 06/10/19 Status: Ordered aspirin 81 mg oral tablet 1 tablet = 81 mg, By Mouth, Daily, PER DR TRISTAN, # 30 tablet, 5 Refills, Maintenance, 10/13/19 13:42:00 EDT, Tablet, [facility], 174, cm, 10/01/19 13:58:00 EDT, Height, 57, kg, 03/19/19 14:07:00 EST, Dry Weight Start Date: 10/13/19 Status: Ordered Combivent Respimat 20 mcg-100 mcg/inh inhalation aerosol 1 puffs, Inhalation, 4 times a day, PRN Wheezing/Shortness of Breath, # 1 each, 0 Refills, Maintenance, 06/12/19 8:06:00 EST, Aerosol, [facility], 1 puffs Inhalation 4 times a [...] Maintenance, 10/12/2012:42:00 EDT, Route to Pharmacy Electronically, [facility], 174, cm, 10/01/19 13:58:00 EDT, Height, [...] 10/14/19 8:46:00 EDT, Route to Pharmacy Electronically, [facility], 174, cm, 10/01/19 13:58:00 EDT, Height, 57, kg, 03/19/19 14:07:... Start Date: 10/14/19 Status: Ordered Nasacort Allergy 24HR 55 mcg/inh nasal spray 2 sprays, Nares, Both, Daily, # 3 each, 0 Refills, Maintenance, 01/08/20 14:50:00 EDT, [facility], 2 sprays Nares, Both Daily, 174, [...] 10/13/19 13:42:00 EDT, Route to Pharmacy Electronically, [facility], 174, cm, 10/01/19 13:58:00 EDT, Height, 57, kg, 12... Start Date: 10/13/19 Status: Ordered Spiriva HandiHaler 18 mcg inhalation capsule 1 capsule = 18 mcg, Inhalation, Daily, use two inhalations of one capsule for each dose, # 30 capsule, 6 Refills, Maintenance, 07/10/19 14:54:00 EDT, [facility], 174, cm, 05/26/19 14:06:00 EST, Height, 57, kg, 03/19/19 14:07:00 EST, Dry Weight Start Date: 07/10/19 Stop Date: 02/05/20 Status: Ordered traZODone 50 mg oral tablet 100 mg, 2, tablet, By Mouth, Daily at bedtime, # 60 tablet, Refills 5, Tot. Refills 5, Maintenance,01/06/20 15:12:00 EDT, Route to Pharmacy Electronically, [facility], 174, cm, 10/01/19 13:58:00 EDT, Height, [...] 5 Refills, Maintenance, 01/06/20 15:11:00 EDT, Tablet, [facility], 174, cm, 10/01/19 13:58:00 EDT, Height, [...]
--- OUTSIDE RECORDS SUMMARY | 2022-09-19 20:54 | XMS_ITS | Continuity of Care Document ---
Author Name Unknown Organization [facility] Address [address] [place] [address]- Care Team Providers Care Laboratory Assistant Name Role Phone Mike Kruse MD Primary Care Physician Encounter [facility] Date(s): 06/02/22 - 07/02/22 [facility] [address] [place] [address]- Allergies, Adverse Reactions, Alerts Substance Reaction Severity Status lisinopril Atenolol Trisha norvegensis Active cloNIDine Active Immunizations Given and Recorded Vaccine Date Status Refusal Reason [id number] 12y+ bivalent booster vax 1 01/20/22 Given [...] tetanus/diphtheria/pertussis, acel(Tdap) 04/01/09 Recorded 1Result Comment: [facility] [id number] 2Location History: [facility] 3Result Comment: [11/22/2016] [facility] 4Result Comment: [03/20/2016] [facility] Medications acetaminophen 325 mg oral tablet 650 mg, 2, tablet, By Mouth, Every 4 hours, PRN, # 30 tablet, Refills 0, Tot. Refills 0, Maintenance, Pain , Mild, 02/21/22 15:17:00 EST, Route to Pharmacy Electronically, [facility], Partial fill upon patient request if the prescription... Start Date: 02/21/22 Status: Ordered amLODIPine 5 mg oral tablet 1 tablet, By Mouth, Daily, # 90 tablet, 1 Refills, Maintenance, 02/09/22 12:58:00 EDT, [id number], 163, cm, 02/07/22 18:18:00 EDT, Height, 60, kg, 02/07/22 15:54:00 EDT, Dry Weight Start Date: 02/09/22 Status: Ordered Aspirin Low Dose 81 mg oral delayed release tablet 1 tablet, By Mouth, Daily, # 30 tablet, 11 Refills, 10/19/21 9:10:00 EDT, [facility]/pharmacy #1230, 180, cm, 09/26/21 [...] 11 Refills, Maintenance, 04/25/22 10:31:00 EST, Tablet, [facility]/pharmacy #[id number], Partial fill upon patient request if the prescription is for a schedule II opioid drug., 163, cm, 03/30/22 10:35:00 EST, Height, 60, kg,... Start Date: 04/25/22 Status: Ordered clopidogrel 75 mg oral tablet 1, tablet, By Mouth, Daily, # 90 tablet, Refills 1, Maintenance, 05/09/22 14:00:00 EST, Route to Pharmacy Electronically, [id number], 163, cm, 03/30/22 10:35:00 EST, Height, 60, kg, 02/07/22 15:54:00 EDT, Dry Weight Start Date: 05/09/22 Status: Ordered fluticasone 50 mcg/inh nasal spray See Instructions, SPRAY 1 SPRAY INTO EACH NOSTRIL TWICE A DAY, # 48 mL, 1 Refills, Maintenance, 04/25/22 18:01:00 EST, [facility]/pharmacy #[id number], 90, SPRAY 1 SPRAY INTO EACH NOSTRIL TWICE A DAY, 163, cm, 03/30/22 10:35:00 EST, Height, 60, kg, 02/07/22 15:54:... Start Date: 04/25/22 Status: Ordered guaiFENesin 400 mg oral tablet 1 tablet = 400 mg, By Mouth, 4 times a day, # 120 tablet, 5 Refills, Maintenance, 10/28/21 14:19:00EDT, Tablet, [facility]/pharmacy #1230, 165, cm, 10/28/21 [...] tablet, 3 Refills, Maintenance, 04/26/22 9:42:00 EST, [facility] [id number], 163, cm, 03/30/22 10:35:00 EST, Height, 60, kg, 02/07/22 15:54:00 EDT, Dry Weight Start Date: 04/26/22 Status: Ordered magnesium oxide 400 mg oral tablet 1 tablet, By Mouth, Daily, # 30 tablet, 6 Refills, Maintenance, 10/19/21 9:10:00 EDT, [facility]/pharmacy #1230, 180, cm, 09/26/21 10:49:00 EDT, Height, 77, kg, 04/20/21 15:47:00 EST, Dry Weight Start Date: 10/19/21 Stop Date: 10/19/21 Status: Ordered Metoprolol Succinate ER 50 mg oral tablet, extended release See Instructions, 1 TABLET BY MOUTH DAILY,INSTR:INSTR:DO NOT CRUSH OR CHEW, # 90 tablet, 1 Refills,Maintenance, 04/25/22 18:03:00 EST, [facility]/pharmacy #[id number], 163, cm, 03/30/22 10:35:00 EST, Height, 60,kg, 02/07/22 15:54:00 EDT, Dry Weight Start Date: 04/25/22 Status: Ordered MiraLax oral powder for reconstitution = 17 Gm, By Mouth, 2 times a day, dissolve in water before taking, # 527 Gm, 11 Refills, Maintenance, 10/19/21 9:10:00 EDT, REC Powder, [facility]/pharmacy #1230, Partial fill upon patient request if the prescription is for a schedule II opioid drug., 17 Gm... Start Date: 10/19/21 Status: Ordered montelukast 10 mg oral tablet See Instructions, TAKE 1 TABLET BY MOUTH EVERY DAY AT BEDTIME, # 30 tablet, Refills 11, Tot. Refills 11, Maintenance, 01/20/22 14:03:00 EDT, Instructions Replace Required Details, Route to Pharmacy Electronically, [facility]/pharmacy #1230, 162, cm, 01/20/22... Start Date: 01/20/22 Status: Ordered Neurontin 100 mg oral capsule 100 mg, 1, capsule, By Mouth, 3 times a day, # 90 capsule, Refills 2, Tot. Refills 2, Maintenance, 03/15/22 15:34:00 EST, Route to Pharmacy Electronically, [facility]/pharmacy #[id number], Partial fill upon patient request if the prescription is for a schedule II... Start Date: 03/15/22 Status: Ordered omeprazole 20 mg oral delayed release tablet 1 tablet = 20 mg, By Mouth, Daily, # 30 tablet, 11 Refills, Maintenance, 07/10/22 15:48:00 EDT, CR Tablet, [facility]/pharmacy #1230, Partial fill upon [...] 15:17:00 EST, Route to Pharmacy Electronically, [facility], Partial fill upon [...] tablet, 1 Refills, Maintenance, 05/28/22 10:29:00 EST, [facility] [address], 163, cm, 03/30/22 10:35:00 EST, Height, 60, kg, 02/07/22 15:54:00 EDT, Dry Weight Start Date: 05/28/22 Status: Ordered riboflavin 400 mg oral capsule 1 capsule = 400 mg, By Mouth, Daily, # 30 capsule, 5 Refills, Maintenance, 06/01/22 12:01:00 EST, [facility]/pharmacy #[id number], Partial fill upon patient request if the prescription is for a schedule II opioiddrug., 163, cm, 03/30/22 10:35:00 EST, Height, 60,... Start Date: 06/01/22 Status: Ordered SEROquel 25 mg oral tablet 25 mg, 1, tablet, By Mouth, Daily at bedtime, # 30 tablet, Refills 5, Tot. Refills 5, Maintenance, 10/28/21 14:23:00 EDT, Route to Pharmacy Electronically, [facility]/pharmacy #1230, 165, cm, 10/28/21 4:51:00 EDT, Height, 60.5, kg, 10/26/21 13:16:00 EDT, Dry... Start Date: 10/28/21 Status: Ordered Spiriva Respimat 1.25 mcg/inh inhalation aerosol 2 puffs, Inhalation, Daily, # 4 mL, 3 Refills, Maintenance, 06/28/22 8:12:00 EDT, [facility], 163, cm, 06/02/22 12:59:00 EST, Height, 60, kg, 02/07/22 15:54:00 EDT, Dry Weight Start Date: 06/28/22 Status: Ordered Symbicort 160mcg/4.5mcg Inhaler 2, puffs, Inhalation, 2 times a day, # 10.2 Gm, Refills 10, Tot. Refills 10, 10/19/21 9:10:00 EDT, Route to Pharmacy Electronically, [id number], [facility]/pharmacy #1230, 180, cm,09/26/21 10:49:00 EDT, Height, 77, kg, 04/20/21 15:... Start Date: 10/19/21 Status: Ordered tamsulosin 0.4 mg oral capsule 1, capsule, By Mouth, Daily, # 30 capsule, Refills 11, Tot. Refills 11, Maintenance, 04/25/22 9:53:00 EST, Route to Pharmacy Electronically, [facility]/pharmacy #[id number], 163, cm, 03/30/22 10:35:00 EST, Height, 60, kg, 02/07/22 15:54:00 EDT, Dry Weight Start Date: 04/25/22 Status: Ordered traZODone 50 mg oral tablet 2, tablet, By Mouth, Daily at bedtime, # 60 tablet, Refills 3, Maintenance, 06/28/22 8:12:00 EDT, Route to Pharmacy Electronically, [facility] [address]24, 163, cm, 06/02/22 12:59:00 EST, Height, 60, kg, 02/07/22 15:54:00 EDT, Dry Weight Start Date: 06/28/22 Status: Ordered venlafaxine 37.5 mg oral capsule, extended release 1 capsule, By Mouth, Daily, # 30 capsule, 1 Refills, Maintenance, 05/29/22 11:48:00 EST, [facility], 163, cm, 03/30/22 10:35:00 EST, Height, 60, kg, 02/07/22 15:54:00 EDT, Dry Weight Start Date: 05/29/22 Status: Ordered Ventolin HFA 108 mcg/inh inhalation aerosol with adapter 2 puffs, Inhalation, Every 4 hours, PRN NEEDED FOR WHEEZING, # 18 each, 11 Refills, Maintenance,04/26/22 9:42:00 EST, [facility] [address], 163, cm, 03/30/22 10:35:00 EST, Height, 60, [...] Care Nurse Name: Mike Kruse MD Position: [facility] Primary Care Physician Member Role: PCP Address: Address: [address] [place] [address] Name: Maryam Valenzuela RN Position: S RN Member Role: Primary Care Nurse Name: Deandre Lara LPN Position: S RN Member Role: Primary Care Nurse Name: Hayden Queen RN Position: S RN Member Role: Primary Care Nurse Name: Aruna Winkler RN Position: S RN Member Role: Primary Care Nurse Name: Sabrina Hare RN Position: [facility] RN Member Role: Primary Care Nurse Name: Kristyn Olivo RN Position: [facility] RN Member Role: Primary Care Nurse Name: Marguerite Florentino RN Position: [facility] RN Member Role: Primary Care Nurse Care Team Related Persons Name: ENA SOTO Address: home [address] [place] [address] Name: ELISA TOMPKINS Address: [place] [address] Name: JOSE RAFAEL LI
--- OUTSIDE RECORDS SUMMARY | 2022-09-19 20:55 | XMS_ITS | Continuity of Care Document ---
Author Name Unknown Organization [facility] Address [address] [place] [address]- Care Team Providers Care Dispatch Associate Name Role Phone Mike Kruse MD Primary Care Physician Encounter [facility] Date(s): 01/29/22 - 02/28/[address] [address] Allergies, Adverse Reactions, Alerts Substance Reaction Severity Status lisinopril Atenolol Trisha norvegensis Active cloNIDine Active Immunizations Given and Recorded Vaccine Date Status Refusal Reason [id number] 12y+ bivalent booster vax 1 01/20/22 Given [...] Given tetanus/diphtheria/pertussis, acel(Tdap) 04/01/09 Recorded 1Result Comment: [facility] [id number] 2Location History: [facility] 3Result Comment: [11/22/2016] [facility] 4Result Comment: [03/20/2016] [facility] Medications acetaminophen 325 mg oral tablet 650 mg, 2, tablet, By Mouth, Every 4 hours, PRN, # 30 tablet, Refills 0, Tot. Refills 0, Maintenance, Pain , Mild, 02/21/22 15:17:00 EST, Route to Pharmacy Electronically, [facility], Partial fill upon patient request if the prescription... Start Date: 02/21/22 Status: Ordered albuterol 0.083% inhalation solution 3 mL = 2.5 mg, Inhalation, Every 6 hours, PRN for wheezing, # 60 each, 5 Refills, Maintenance, 10/28/21 14:18:00 EDT, Solution, [facility]/pharmacy #1230, 165, cm, 10/28/21 4:51:00 EDT, Height, 60.5, kg, 10/26/21 13:16:00 EDT, Dry Weight Start Date: 10/28/21 Status: Ordered amLODIPine 5 mg oral tablet 1 tablet, By Mouth, Daily, # 90 tablet, 1 Refills, Maintenance, 02/09/22 12:58:00 EDT, [facility], 163, cm, 02/07/22 18:18:00 EDT, Height, 60, kg, 02/07/22 15:54:00 EDT, Dry Weight Start Date: 02/09/22 Status: Ordered Aspirin Low Dose 81 mg oral delayed release tablet 1 tablet, By Mouth, Daily, # 30 tablet, 11 Refills, 10/19/21 9:10:00 EDT, [facility]/pharmacy #1230, 180, cm, 09/26/21 10:49:00 [...] each, 5 Refills, Maintenance, 12/19/21 15:27:00 EDT, [facility], 30, USE 1 SPRAY IN EACH NOSTRIL TWICE A DAY, 162, cm, 12/16/21 14:39:00 EDT, Height, 59.5, kg, 12/16/21 0:28:00... Start Date: 12/19/21 Status: Ordered guaiFENesin 400 mg oral tablet 1 tablet = 400 mg, By Mouth, 4 times a day, # 120 tablet, 5 Refills, Maintenance, 10/28/21 14:19:00EDT, Tablet, [facility]/pharmacy #1230, 165, cm, 10/28/21 4:51:00 [...] tablet, 4 Refills, Maintenance, 12/23/21 13:25:00 EDT, [facility], 162, cm, 12/16/21 14:39:00 EDT, Height, 59.5, kg, 12/16/21 0:28:00 EDT, Dry Weight Start Date: 12/23/21 Status: Ordered magnesium oxide 400 mg oral tablet 1 tablet, By Mouth, Daily, # 30 tablet, 6 Refills, Maintenance, 10/19/21 9:10:00 EDT, [facility]/pharmacy #1230, 180, cm, 09/26/21 10:49:00 EDT, Height, 77, kg, 04/20/21 15:47:00 EST, Dry Weight Start Date: 10/19/21 Stop Date: 10/19/21 Status: Ordered Metoprolol Succinate ER 50 mg oral tablet, extended release 1 tablet, By Mouth, Daily, INSTR:DO NOT CRUSH OR CHEW, # 30 tablet, 5 Refills, 10/19/21 9:10:00 EDT, [facility]/pharmacy #1230, 180, cm, 09/26/21 10:49:00 EDT, Height, 77, kg, 04/20/21 15:47:00 EST, Dry Weight Start Date: 10/19/21 Status: Ordered MiraLax oral powder for reconstitution = 17 Gm, By Mouth, 2 times a day, dissolve in water before taking, # 527 Gm, 11 Refills, Maintenance, 10/19/21 9:10:00 EDT, REC Powder, [facility]/pharmacy #1230, Partial fill upon patient request if the prescription is for a schedule II opioid drug., 17 Gm... Start Date: 10/19/21 Status: Ordered montelukast 10 mg oral tablet See Instructions, TAKE 1 TABLET BY MOUTH EVERY DAY AT BEDTIME, # 30 tablet, Refills 11, Tot. Refills 11, Maintenance, 01/20/22 14:03:00 EDT, Instructions Replace Required Details, Route to Pharmacy Electronically, [facility]/pharmacy #1230, 162, cm, 01/20/22... Start Date: 01/20/22 Status: Ordered omeprazole 20 mg oral delayed release tablet 1 tablet = 20 mg, By Mouth, Daily, # 30 tablet, 11 Refills, Maintenance, 07/10/22 15:48:00 EDT, CR Tablet, [facility]/pharmacy #1230, Partial fill upon patient [...] 02/21/22 15:17:00 EST, Route to Pharmacy Electronically, [facility], Partial fill upon patient request if the prescription... Start Date: 02/21/22 Status: Ordered Plavix 75 mg oral tablet 75 mg, 1, tablet, By Mouth, Daily, # 90 tablet, Refills 1, Tot. Refills 1, Maintenance, 11/18/21 16:53:00 EDT, Route to Pharmacy Electronically, [facility]/pharmacy #1230, Partial fill upon patient request if the prescription is for a schedule II opioid drug... Start Date: 11/18/21 Status: Ordered pravastatin 40 mg oral tablet See Instructions, TAKE 1 TABLET BY MOUTH EVERY DAY, # 30 tablet, 5 Refills, Maintenance, 12/19/21 15:29:00 EDT, [facility], 162, cm, 12/16/21 14:39:00 EDT, Height, 59.5, kg, 12/16/21 0:28:00 EDT, Dry Weight Start Date: 12/19/21 Status: Ordered ProAir HFA 90 mcg/inh inhalation aerosol with adapter 2, puffs, Inhalation, Every 6 hours, PRN, # 8.5 Gm, Refills 1, Tot. Refills 1, 12/13/21 12:40:00 EDT, Route to Pharmacy Electronically, [id number], [facility],162, cm, 12/13/21 4:46:00 EDT, Height, 60.3, kg, 08... Start Date: 12/13/21 Status: Ordered riboflavin 400 mg oral capsule 1 capsule = 400 mg, By Mouth, Daily, # 30 capsule, 5 Refills, Maintenance, 10/19/21 9:10:00 EDT, [facility]/pharmacy #1230, Partial fill upon patient request if the prescription is for a schedule II opioid drug., 180, cm, 09/26/21 10:49:00 EDT, Height, 77, k... Start Date: 10/19/21 Status: Ordered SEROquel 25 mg oral tablet 25 mg, 1, tablet, By Mouth, Daily at bedtime, # 30 tablet, Refills 5, Tot. Refills 5, Maintenance, 10/28/21 14:23:00 EDT, Route to Pharmacy Electronically, [facility]/pharmacy #1230, 165, cm, 10/28/21 4:51:00 EDT, Height, 60.5, kg, 10/26/21 13:16:00 EDT, Dry... Start Date: 10/28/21 Status: Ordered Spiriva Respimat 1.25 mcg/inh inhalation aerosol 2 puffs, Inhalation, Daily, # 4 Gm, 5 Refills, 10/19/21 9:10:00 EDT, [facility]/pharmacy #1230, 180, cm, 09/26/21 10:49:00 EDT, Height, 77, kg, 04/20/21 15:47:00 EST, Dry Weight Start Date: 10/19/21 Status: Ordered Symbicort 160mcg/4.5mcg Inhaler 2, puffs, Inhalation, 2 times a day, # 10.2 Gm, Refills 10, Tot. Refills 10, 10/19/21 9:10:00 EDT, Route to Pharmacy Electronically, [id number], [facility]/pharmacy #1230, 180, cm,09/26/21 10:49:00 EDT, Height, 77, kg, 04/20/21 15:... Start Date: 10/19/21 Status: Ordered tamsulosin 0.4 mg oral capsule 1, capsule, By Mouth, Daily, # 30 capsule, Refills 4, Tot. Refills 4, Maintenance, 10/19/21 9:10:00EDT, Route to Pharmacy Electronically, [facility]/pharmacy #1230, 180, cm, 09/26/21 10:49:00 [...] Refills, Soft Stop, 02/07/22 18:30:00 EDT, Tablet, [facility], Partial fill upon patient request [...] Team Personnel Name: Ana West RN Position: [facility] RN Member Role: Primary Care Nurse Name: Ernesto JUAREZ, Odalys Miller Position: S RN Member Role: Primary Care Nurse Name: Mike Kruse MD Position: [facility] Primary Care Physician Member Role: PCP Address: Address: [address] [place] [address]- Name: Maryam Valenzuela RN Position: S RN Member Role: Primary Care Nurse Name: Deandre Lara LPN Position: [facility] RN Member Role: Primary Care Nurse Name: Aruna Winkler RN Position: [facility] RN Member Role: Primary Care Nurse Name: Sabrina Hare RN Position: [facility] RN Member Role: Primary Care Nurse Name: Kristyn Olivo RN Position: [facility] RN Member Role: Primary Care Nurse Name: Marguerite Florentino RN Position: [facility] RN Member Role: Primary Care Nurse Care Team Related Persons Name: ENA SOTO Address: home [address] [place] [address] Name: ELISA TOMPKINS Address: [place] [address] Name: JOSE RAFAEL LI
--- OUTSIDE RECORDS SUMMARY | 2022-09-19 20:55 | XMS_ITS | Continuity of Care Document ---
Author Name Unknown Organization [facility] Trevor Address [address] [place] [address]- Care Team Providers Care Mechanical Drafter Name Role Phone Mike Kruse MD Primary Care Physician [facility]counter [facility] Date(s): 03/29/22 - 04/28/22 [facility] Adult [address] [place] [address]- Allergies, Adverse Reactions, Alerts Substance Reaction Severity Status lisinopril Atenolol Trisha norvegensis Active cloNIDine Active Immunizations Given and Recorded Vaccine Date Status Refusal Reason [id number] 12y+ bivalent booster vax 1 01/20/22 Given [...] Given tetanus/diphtheria/pertussis, acel(Tdap) 04/01/09 Recorded 1Result Comment: [facility] [id number] 2Location History: [facility] 3Result Comment: [11/22/2016] [facility] 4Result Comment: [03/20/2016] [facility] Medications acetaminophen 325 mg oral tablet 650 mg, 2, tablet, By Mouth, Every 4 hours, PRN, # 30 tablet, Refills 0, Tot. Refills 0, Maintenance, Pain , Mild, 02/21/22 15:17:00 EST, Route to Pharmacy Electronically, [facility], Partial fill upon patient request if the prescription... Start Date: 02/21/22 Status: Ordered amLODIPine 5 mg oral tablet 1 tablet, By Mouth, Daily, # 90 tablet, 1 Refills, Maintenance, 02/09/22 12:58:00 EDT, [id number], 163, cm, 02/07/22 18:18:00 EDT, Height, 60, kg, 02/07/22 15:54:00 EDT, Dry Weight Start Date: 02/09/22 Status: Ordered Aspirin Low Dose 81 mg oral delayed release tablet 1 tablet, By Mouth, Daily, # 30 tablet, 11 Refills, 10/19/21 9:10:00 EDT, [facility]/pharmacy #1230, 180, cm, 09/26/21 10:49:00 EDT, [...] 11 Refills, Maintenance, 04/25/22 10:31:00 EST, Tablet, [facility]/pharmacy #[id number], Partial fill upon patient request if the prescription is for a schedule II opioid drug., 163, cm, 03/30/22 10:35:00 EST, Height, 60, kg,... Start Date: 04/25/22 Status: Ordered fluticasone 50 mcg/inh nasal spray See Instructions, SPRAY 1 SPRAY INTO EACH NOSTRIL TWICE A DAY, # 48 mL, 1 Refills, Maintenance, 04/25/22 18:01:00 EST, [facility]/pharmacy #0373, 90, SPRAY 1 SPRAY INTO EACH NOSTRIL TWICE A DAY, 163, cm, 03/30/22 10:35:00 EST, Height, 60, kg, 02/07/22 15:54:... Start Date: 04/25/22 Status: Ordered guaiFENesin 400 mg oral tablet 1 tablet = 400 mg, By Mouth, 4 times a day, # 120 tablet, 5 Refills, Maintenance, 10/28/21 14:19:00EDT, Tablet, [facility]/pharmacy #1230, 165, cm, 10/28/21 4:51:00 EDT, [...] tablet, 3 Refills, Maintenance, 04/26/22 9:42:00 EST, [facility] STORE [facility], 163, cm, 03/30/22 10:35:00 EST, Height, 60, kg, 02/07/22 15:54:00 EDT, Dry Weight Start Date: 04/26/22 Status: Ordered magnesium oxide 400 mg oral tablet 1 tablet, By Mouth, Daily, # 30 tablet, 6 Refills, Maintenance, 10/19/21 9:10:00 EDT, [facility]/pharmacy #1230, 180, cm, 09/26/21 10:49:00 EDT, Height, 77, kg, 04/20/21 15:47:00 EST, Dry Weight Start Date: 10/19/21 Stop Date: 10/19/21 Status: Ordered Metoprolol Succinate ER 50 mg oral tablet, extended release See Instructions, 1 TABLET BY MOUTH DAILY,INSTR:INSTR:DO NOT CRUSH OR CHEW, # 90 tablet, 1 Refills,Maintenance, 04/25/22 18:03:00 EST, [facility]/pharmacy #0373, 163, cm, 03/30/22 10:35:00 EST, Height, 60,kg, 02/07/22 15:54:00 EDT, Dry Weight Start Date: 04/25/22 Status: Ordered MiraLax oral powder for reconstitution = 17 Gm, By Mouth, 2 times a day, dissolve in water before taking, # 527 Gm, 11 Refills, Maintenance, 10/19/21 9:10:00 EDT, REC Powder, [facility]/pharmacy #1230, Partial fill upon patient request [...] Refills, Maintenance, 07/10/22 15:48:00 EDT, CR Tablet, [facility], Partial fill upon patient [...] 02/21/22 15:17:00 EST, Route to Pharmacy Electronically, [facility], Partial fill upon patient request if [...] 11/18/21 16:53:00 EDT, Route to Pharmacy Electronically, [facility]/pharmacy #1230, Partial fill upon patient request if the prescription is for a schedule II opioid drug... Start Date: 11/18/21 Status: Ordered pravastatin 40 mg oral tablet See Instructions, TAKE 1 TABLET BY MOUTH EVERY DAY, # 30 tablet, 5 Refills, Maintenance, 12/19/21 15:29:00 EDT, [facility], 162, cm, 12/16/21 14:39:00 EDT, Height, 59.5, kg, 12/16/21 0:28:00 EDT, Dry Weight Start Date: 12/19/21 Status: Ordered riboflavin 400 mg oral capsule 1 capsule = 400 mg, By Mouth, Daily, # 30 capsule, 5 Refills, Maintenance, 10/19/21 9:10:00 EDT, [facility]/pharmacy #1230, Partial fill upon patient request if the prescription is for a schedule II opioid drug., 180, cm, 09/26/21 10:49:00 EDT, Height, 77, k... Start Date: 10/19/21 Status: Ordered SEROquel 25 mg oral tablet 25 mg, 1, tablet, By Mouth, Daily at bedtime, # 30 tablet, Refills 5, Tot. Refills 5, Maintenance, 10/28/21 14:23:00 EDT, [facility] 165, cm, 10/28/21 4:51:00 EDT, Height, 60.5, kg, 10/26/21 13:16:00 EDT, Dry... Start Date: 10/28/21 Status: Ordered Spiriva Respimat 1.25 mcg/inh inhalation aerosol 2 puffs, Inhalation, Daily, # 4 Gm, 5 Refills, 10/19/21 9:10:00 EDT, [facility]/pharmacy #1230, 180, cm, 09/26/21 10:49:00 EDT, Height, 77, kg, 04/20/21 15:47:00 EST, Dry Weight Start Date: 10/19/21 Status: Ordered Symbicort 160mcg/4.5mcg Inhaler 2, puffs, Inhalation, 2 times a day, # 10.2 Gm, Refills 10, Tot. Refills 10, 10/19/21 9:10:00 EDT, Route to Pharmacy Electronically, [id number], [facility] 180, cm,09/26/21 10:49:00 EDT, Height, 77, kg, 04/20/21 15:... Start Date: 10/19/21 Status: Ordered tamsulosin 0.4 mg oral capsule 1, capsule, By Mouth, Daily, # 30 capsule, Refills 11, Tot. Refills 11, Maintenance, 04/25/22 9:53:00 EST, [id number] 163, cm, 03/30/22 10:35:00 EST, Height, 60, kg, 02/07/22 15:54:00 EDT, Dry Weight Start Date: 04/25/22 Status: Ordered venlafaxine 37.5 mg oral capsule, extended release See Instructions, TAKE 1 CAPSULE BY MOUTH EVERY DAY, # 30 capsule, 1 Refills, Maintenance, 03/31/2211:53:00 EST, [facility], 163, cm, 03/30/22 10:35:00 EST, Height, 60, kg, 02/07/22 15:54:00 EDT, Dry Weight Start Date: 03/31/22 Status: Ordered Ventolin HFA 108 mcg/inh inhalation aerosol with adapter 2 puffs, Inhalation, Every 4 hours, PRN NEEDED FOR WHEEZING, # 18 each, 11 Refills, Maintenance,04/26/22 9:42:00 EST, [id number], 163, cm, 03/30/22 10:35:00 EST, Height, 60, [...] Care Nurse Name: Odalys Orozco RN Position: [facility] RN Member Role: Primary Care Nurse Name: Mike Kruse MD Position: [facility] Primary Care Physician Member Role: PCP Address: Address: [address] [place], [place] [address] Name: Maryam Valenzuela RN Position: [facility] RN Member Role: Primary Care Nurse Name: Deandre Lara LPN Position: [facility] RN Member Role: Primary Care Nurse Name: Hayden Queen RN Position: [facility] RN Member Role: Primary Care Nurse Name: Aruna Winkler RN Position: [facility] RN Member Role: Primary Care Nurse Name: Sabrina Hare RN Position: [facility] RN Member Role: Primary Care Nurse Name: Kristyn Olivo RN Position: [facility] RN Member Role: Primary Care Nurse Name: Marguerite Florentino RN Position: [facility] RN Member Role: Primary Care Nurse Care Team Related Persons Name: ENA SOTO Address: home [address] [place] [address] Name: ELISA TOMPKINS Address: [place] [address] Name: JOSE RAFAEL LI
--- OUTSIDE RECORDS SUMMARY | 2022-09-19 20:55 | XMS_ITS | Continuity of Care Document ---
Author Name Unknown Organization [facility] Trevor Address [address] [place] [address]- Care Team Providers Care Continuous Crusher Operator Name Role Phone Mike Kruse MD Primary Care Physician [facility] Date[facility]s): 03/[facility]/22 - 04/30/22 [facility] Adult [address] [place] [address]- Allergies, Adverse Reactions, Alerts Substance Reaction Severity Status lisinopril Atenolol Trisha norvegensis Active cloNIDine Active Immunizations Given and Recorded Vaccine Date Status Refusal Reason [id number] 12y+ bivalent booster vax 1 01/20/22 Given [...] Given tetanus/diphtheria/pertussis, acel(Tdap) 04/01/09 Recorded 1Result Comment: [facility] [id number] 2Location History: [facility] 3Result Comment: [11/22/2016] [facility] 4Result Comment: [03/20/2016] [facility] Medications acetaminophen 325 mg oral tablet 650 mg, 2, tablet, By Mouth, Every 4 hours, PRN, # 30 tablet, Refills 0, Tot. Refills 0, Maintenance, Pain , Mild, 02/21/22 15:17:00 EST, Route to Pharmacy Electronically, [facility], Partial fill upon patient request if the prescription... Start Date: 02/21/22 Status: Ordered amLODIPine 5 mg oral tablet 1 tablet, By Mouth, Daily, # 90 tablet, 1 Refills, Maintenance, 02/09/22 12:58:00 EDT, [facility], 163, cm, 02/07/22 18:18:00 EDT, Height, 60, kg, 02/07/22 15:54:00 EDT, Dry Weight Start Date: 02/09/22 Status: Ordered Aspirin Low Dose 81 mg oral delayed release tablet 1 tablet, By Mouth, Daily, # 30 tablet, 11 Refills, 10/19/21 9:10:00 EDT, [facility]/pharmacy #1230, 180, cm, 09/26/21 10:49:00 [...] 11 Refills, Maintenance, 04/25/22 10:31:00 EST, Tablet, [facility]/pharmacy #0373, Partial fill upon patient request if the prescription is for a schedule II opioid drug., 163, cm, 03/30/22 10:35:00 EST, Height, 60, kg,... Start Date: 04/25/22 Status: Ordered fluticasone 50 mcg/inh nasal spray See Instructions, SPRAY 1 SPRAY INTO EACH NOSTRIL TWICE A DAY, # 48 mL, 1 Refills, Maintenance, 04/25/22 18:01:00 EST, [facility]/pharmacy #0373, 90, SPRAY 1 SPRAY INTO EACH NOSTRIL TWICE A DAY, 163, cm, 03/30/22 10:35:00 EST, Height, 60, kg, 02/07/22 15:54:... Start Date: 04/25/22 Status: Ordered guaiFENesin 400 mg oral tablet 1 tablet = 400 mg, By Mouth, 4 times a day, # 120 tablet, 5 Refills, Maintenance, 10/28/21 14:19:00EDT, Tablet, [facility]/pharmacy #1230, 165, cm, 10/28/21 4:51:00 [...] tablet, 3 Refills, Maintenance, 04/26/22 9:42:00 EST, [facility], 163, cm, 03/30/22 10:35:00 EST, Height, 60, kg, 02/07/22 15:54:00 EDT, Dry Weight Start Date: 04/26/22 Status: Ordered magnesium oxide 400 mg oral tablet 1 tablet, By Mouth, Daily, # 30 tablet, 6 Refills, Maintenance, 10/19/21 9:10:00 EDT, [facility]/pharmacy #1230, 180, cm, 09/26/21 10:49:00 EDT, Height, 77, kg, 04/20/21 15:47:00 EST, Dry Weight Start Date: 10/19/21 Stop Date: 10/19/21 Status: Ordered Metoprolol Succinate ER 50 mg oral tablet, extended release See Instructions, 1 TABLET BY MOUTH DAILY,INSTR:INSTR:DO NOT CRUSH OR CHEW, # 90 tablet, 1 Refills,Maintenance, 04/25/22 18:03:00 EST, [facility]/pharmacy #0373, 163, cm, 03/30/22 10:35:00 EST, Height, 60,kg, 02/07/22 15:54:00 EDT, Dry Weight Start Date: 04/25/22 Status: Ordered MiraLax oral powder for reconstitution = 17 Gm, By Mouth, 2 times a day, dissolve in water before taking, # 527 Gm, 11 Refills, Maintenance, 10/19/21 9:10:00 EDT, REC Powder, [facility]/pharmacy #1230, Partial fill upon patient [...] 02/21/22 15:17:00 EST, Route to Pharmacy Electronically, [facility], Partial fill upon patient request if [...] 11/18/21 16:53:00 EDT, Route to Pharmacy Electronically, [facility]/pharmacy #1230, Partial fill upon patient request if the prescription is for a schedule II opioid drug... Start Date: 11/18/21 Status: Ordered pravastatin 40 mg oral tablet See Instructions, TAKE 1 TABLET BY MOUTH EVERY DAY, # 30 tablet, 5 Refills, Maintenance, 12/19/21 15:29:00 EDT, [facility], 162, cm, 12/16/21 14:39:00 EDT, Height, 59.5, kg, 12/16/21 0:28:00 EDT, Dry Weight Start Date: 12/19/21 Status: Ordered riboflavin 400 mg oral capsule 1 capsule = 400 mg, By Mouth, Daily, # 30 capsule, 5 Refills, Maintenance, 10/19/21 9:10:00 EDT, [facility]/pharmacy #1230, Partial fill upon patient request if the prescription is for a schedule II opioid drug., 180, cm, 09/26/21 10:49:00 EDT, Height, 77, k... Start Date: 10/19/21 Status: Ordered SEROquel 25 mg oral tablet 25 mg, 1, tablet, By Mouth, Daily at bedtime, # 30 tablet, Refills 5, Tot. Refills 5, Maintenance, 10/28/21 14:23:00 EDT, [facility] 165, cm, 10/28/21 4:51:00 EDT, Height, 60.5, kg, 10/26/21 13:16:00 EDT, Dry... Start Date: 10/28/21 Status: Ordered Spiriva Respimat 1.25 mcg/inh inhalation aerosol 2 puffs, Inhalation, Daily, # 4 Gm, 5 Refills, 10/19/21 9:10:00 EDT, [facility]/pharmacy #1230, 180, cm, 09/26/21 10:49:00 EDT, Height, 77, kg, 04/20/21 15:47:00 EST, Dry Weight Start Date: 10/19/21 Status: Ordered Symbicort 160mcg/4.5mcg Inhaler 2, puffs, Inhalation, 2 times a day, # 10.2 Gm, Refills 10, Tot. Refills 10, 10/19/21 9:10:00 EDT, Route to Pharmacy Electronically, [id number], [facility] 180, cm,09/26/21 10:49:00 EDT, Height, 77, kg, 04/20/21 15:... Start Date: 10/19/21 Status: Ordered tamsulosin 0.4 mg oral capsule 1, capsule, By Mouth, Daily, # 30 capsule, Refills 11, Tot. Refills 11, Maintenance, 04/25/22 9:53:00 EST, [id number] 163, cm, 03/30/22 10:35:00 EST, Height, 60, kg, 02/07/22 15:54:00 EDT, Dry Weight Start Date: 04/25/22 Status: Ordered venlafaxine 37.5 mg oral capsule, extended release See Instructions, TAKE 1 CAPSULE BY MOUTH EVERY DAY, # 30 capsule, 1 Refills, Maintenance, 03/31/2211:53:00 EST, [facility], 163, cm, 03/30/22 10:35:00 EST, Height, 60, kg, 02/07/22 15:54:00 EDT, Dry Weight Start Date: 03/31/22 Status: Ordered Ventolin HFA 108 mcg/inh inhalation aerosol with adapter 2 puffs, Inhalation, Every 4 hours, PRN NEEDED FOR WHEEZING, # 18 each, 11 Refills, Maintenance,04/26/22 9:42:00 EST, [facility], 163, cm, 03/30/22 10:35:00 EST, Height, 60, [...] Care Nurse Name: Odalys Orozco RN Position: [facility] RN Member Role: Primary Care Nurse Name: Mike Kruse MD Position: [facility] Primary Care Physician Member Role: PCP Address: Address: [address] [place], [place] [address] Name: Maryam Valenzuela RN Position: [facility] RN Member Role: Primary Care Nurse Name: Deandre Lara LPN Position: [facility] RN Member Role: Primary Care Nurse Name: Hayden Queen RN Position: [facility] RN Member Role: Primary Care Nurse Name: Aruna Winkler RN Position: [facility] RN Member Role: Primary Care Nurse Name: Sabrina Hare RN Position: [facility] RN Member Role: Primary Care Nurse Name: Kristyn Olivo RN Position: [facility] RN Member Role: Primary Care Nurse Name: Marguerite Florentino RN Position: [facility] RN Member Role: Primary Care Nurse Care Team Related Persons Name: ENA SOTO Address: home [address] [place] [address] Name: ELISA TOMPKINS Address: [place] [address] Name: JOSE RAFAEL LI
--- OUTSIDE RECORDS SUMMARY | 2022-09-19 20:55 | XMS_ITS | Continuity of Care Document ---
Author Name Unknown Organization [facility] Address [address] [place] [address]- Care Team Providers Care Bobbin Doffer Name Role Phone Aixa BERNABE, Mike Bennett Primary Care Physician [facility] - 08[facility]24/20 [facility] Adult [address] [place] [address]- Encounter Diagnosis Sinusitis(Discharge Diagnosis) - 08/17/20 Constipation(Discharge Diagnosis) - 08/17/20 Attending Physician: Abdirizak BLOCK MECHANICKay Allergies, Adverse Reactions, Alerts Substance Reaction Severity [...] 05/05/20 13:45:00 EST, Route to Pharmacy Electronically, [facility], 174, cm, 03/01/20 11:26:00 EST, Height, 57, kg, 03/19/19 14:07:00 EST, Dry Weight Start Date: 05/05/20 Status: Ordered aspirin 81 mg oral tablet 1 tablet = 81 mg, By Mouth, Daily, PER DR TRISTAN, # 30 tablet, 5 Refills, Maintenance, 10/13/19 13:42:00 EDT, Tablet, [facility], 174, cm, 10/01/19 13:58:00 EDT, Height, [...] Gm, 11 Refills, Maintenance, 05/07/20 10:33:00 EST, [facility], 30, 1 puffs Inhalation 4 times a day,PRN: NEEDED FOR WHEEZING OR SHORTNESS OF BREATH... Start Date: 05/07/20 Status: Ordered docusate sodium 100 mg oral capsule 1 capsule = 100 mg, By Mouth, 2 times a day, PRN as needed for constipation, # 100 capsule, 2 Refills, Maintenance, 08/17/20 14:09:00 EDT, Capsule, [facility], Partial fill upon patient request if [...] Maintenance, 04/27/2113:59:00 EST, Route to Pharmacy Electronically, [facility], 174, cm, 03/01/20 11:26:00 EST, Height, 57, kg, 03/19/19 14:07:00 EST, Dry Weight Start Date: 04/27/20 Status: Ordered fluticasone 50 mcg/inh nasal spray See Instructions, INSTILL 1 SPRAY INTO EACH NOSTRIL TWICE DAILY, # 16 Gm, 2 Refills, 08/24/20 15:55:00 EDT, [facility], 30, INSTILL 1 SPRAY INTO EACH [...] 1 Refills, Maintenance, 08/17/20 14:11:00 EDT, Capsule, [facility], Partial fill upon patient request if the prescription is for a scheduleII opioid drug., 174, cm, 08/17/20 13:45:00 EDT, He... Start Date: 08/17/20 Status: Ordered losartan 100 mg oral tablet 1 tablet, By Mouth, Daily, # 30 tablet, 11 Refills, Maintenance, 07/12/20 14:44:00 [facility], [facility], 07/12/20 14:32:00 EDT, Height, 57, kg, 03/19/19 14:07:00 EST, Dry Weight Start Date: 07/12/20 Status: Ordered metoprolol 50 mg oral tablet, extended release 50 mg, 1, tablet, By Mouth, Daily, do not crush or chew, # 30 tablet, Refills 11, Tot. Refills 11, Maintenance, 07/12/20 14:44:00 EDT, Route to Pharmacy Electronically, [facility], 174, cm,07/12/20 14:32:00 EDT, Height, 57, kg, 03/19/19 14:... Start Date: 07/12/20 Status: Ordered Nasacort Allergy 24HR 55 mcg/inh nasal spray 2 sprays, Nares, Both, Daily, # 3 each, 0 Refills, Maintenance, 01/08/20 14:50:00 EDT, [facility], 2 sprays Nares, Both Daily, 174, cm, 01/08/20 14:29:00 EDT, Height, 57, kg, 03/19/19 14:07:00 EST, Dry Weight Start Date: 01/08/20 Status: Ordered nicotine 4 mg oral transmucosal lozenge 1 lozenge = 4 mg, By Mouth, Every hour, # 189 lozenge, 11 Refills, Maintenance, 07/12/20 14:49:00 EDT, [facility], 1 lozenge By Mouth Every hour, 174, cm, 07/12/20 14:32:00 EDT, Height, 57,kg, 03/19/19 14:07:00 EST, Dry Weight Start Date: 07/12/20 Status: Ordered omeprazole 20 mg oral enteric coated capsule 1 capsule, By Mouth, Daily, # 14 capsule, 0 Refills, Maintenance, 07/05/20 8:06:00 EDT, [facility], 174, cm, 06/22/20 14:37:00 EST, Height, 57, kg, 03/19/19 14:07:00 EST, Dry Weight Start Date: 07/05/20 Stop Date: 07/19/20 Status: Ordered pravastatin 40 mg oral tablet 1 tablet = 40 mg, By Mouth, Daily, # 90 tablet, 1 Refills, Maintenance, 08/24/20 15:56:00 EDT, Tablet, [facility], 174, cm, 08/17/20 13:45:00 EDT, Height, 57, kg, 03/19/19 14:07:00 EST, DryWeight Start Date: 08/24/20 Status: Ordered Remeron 15 mg oral tablet 1 tablet = 15 mg, By Mouth, Daily at bedtime, REPLACES ZOLOFT, # 30 tablet, 1 Refills, Maintenance,06/22/20 15:13:00 EST, Tablet, [facility], Partial fill upon patient request if the prescription is for a schedule II opioid drug., 174, cm,... Start Date: 06/22/20 Status: Ordered Singulair 10 mg oral tablet 10 mg, 1, tablet, By Mouth, Daily at bedtime, PER ARPIT DUNN, # 30 tablet, Refills 5, Tot. Refills 5, Maintenance, 05/05/20 13:42:00 EST, Route to Pharmacy Electronically, [facility], 174, cm, 03/01/20 11:26:00 EST, Height, 57, kg, 12... Start Date: 05/05/20 Status: Ordered Spiriva Respimat 1.25 mcg/inh inhalation aerosol 2 puffs, Inhalation, Daily, # 4 Gm, 11 Refills, Maintenance, 05/25/20 13:51:00 EST, Aerosol, [facility], Partial fill upon patient request if the prescription is for a schedule II opioid drug., 174, cm, 05/07/20 10:13:00 EST, Height, 57, kg,... Start Date: 05/25/20 Status: Ordered Symbicort 160mcg/4.5mcg Inhaler 2, puffs, Inhalation, 2 times a day, # 1 each, Refills 11, Tot. Refills 11, Maintenance, 05/25/20 13:51:00 EST, Aerosol, Route to Pharmacy Electronically, [id number], [facility], 174,cm, 05/07/20 10:13:00 EST, Height, 57, kg, 03/19/19... Start Date: 05/25/20 Status: Ordered traZODone 50 mg oral tablet 100 mg, 2, tablet, By Mouth, Daily at bedtime, # 60 tablet, Refills 11, Tot. Refills 11, Maintenance, 07/12/20 14:43:00 EDT, Route to Pharmacy Electronically, [facility], 174, cm, 07/12/20 14:32:00 EDT, Height, 57, kg, 03/19/19 14:07:00 EST,... Start Date: 07/12/20 Status: Ordered Tylenol Extra Strength 500 mg oral tablet See Instructions, PRN for pain, 1 or 2 tablet By Mouth 3 times a day PER DR TRISTAN, # 100 tablet, 11 Refills, Maintenance, 06/08/20 10:22:00 EST, Tablet, [facility], 174, cm, 06/08/20 9:48:00 EST, Height, 57, kg, 03/19/19 14:07:00 EST, Dry Weight Start Date: 06/08/20 Status: Ordered ZyrTEC 10 mg oral tablet 1 tablet = 10 mg, By Mouth, Daily, # 30 tablet, 5 Refills, Maintenance, 03/08/20 8:02:00 EST, Tablet, [facility], 174, cm, 03/01/20 11:26:00 EST, Height, [...] Dates Health Status Cl inical Service Informant Sinusitis Discharge Diagnosis 08/17/20 Constipation Discharge Diagnosis 08/17/20 Vital Signs Most recent to oldest [Reference Range]: 1 Height 174 cm (08/17/20 1:45 PM) Blood Pressure [90-138/55-84 mm Hg] 150/ 90mm Hg *H* (08/17/20 1:45 PM) Social History Social History Type Response Smoking Status 5-9 cigarettes (betw een 1/4 to 1/2 pack)/day in last 30 days entered on: 05/26/19 Sex
--- OUTSIDE RECORDS SUMMARY | 2022-09-19 20:55 | XMS_ITS | Continuity of Care Document ---
Author Name Unknown Organization [facility] Taco Trevor lt Address [address] [place] [address]- Care Team Providers Care Security Shift Manager Name Role Phone Aixa BERNABE, Mike Bennett Primary Care Physician [phone] [facility]counter [facility] Date[facility]): 06/26/22 - 07/26/22 [facility] Adult [address] [place] [address]- Allergies, Adverse Reactions, Alerts Substance Reaction Severity Status lisinopril Atenolol Trisha norvegensis Active cloNIDine Active Immunizations Given and Recorded Vaccine Date Status Refusal Reason [id number] 12y+ bivalent booster vax 1 01/20/22 Given [...] Given tetanus/diphtheria/pertussis, acel(Tdap) 04/01/09 Recorded 1Result Comment: [facility] [id number] 2Location History: [facility] 3Result Comment: [11/22/2016] [facility] 4Result Comment: [03/20/2016] [facility] Medications acetaminophen 325 mg oral tablet 650 mg, 2, tablet, By Mouth, Every 4 hours, PRN, # 30 tablet, Refills 0, Tot. Refills 0, Maintenance, Pain , Mild, 02/21/22 15:17:00 EST, Route to Pharmacy Electronically, [facility], Partial fill upon patient request if the prescription... Start Date: 02/21/22 Status: Ordered amLODIPine 5 mg oral tablet 1 tablet, By Mouth, Daily, # 90 tablet, 1 Refills, Maintenance, 02/09/22 12:58:00 EDT, [facility], 163, cm, 02/07/22 18:18:00 EDT, Height, 60, kg, 02/07/22 15:54:00 EDT, Dry Weight Start Date: 02/09/22 Status: Ordered Aspirin Low Dose 81 mg oral delayed release tablet 1 tablet, By Mouth, Daily, # 30 tablet, 11 Refills, 10/19/21 9:10:00 EDT, [facility]/pharmacy #1230, 180, cm, 09/26/21 10:49:00 EDT, [...] 11 Refills, Maintenance, 04/25/22 10:31:00 EST, Tablet, [facility]/pharmacy #0373, Partial fill upon patient request if the prescription is for a schedule II opioid drug., 163, cm, 03/30/22 10:35:00 EST, Height, 60, kg,... Start Date: 04/25/22 Status: Ordered clopidogrel 75 mg oral tablet 1, tablet, By Mouth, Daily, # 90 tablet, Refills 1, Maintenance, 05/09/22 14:00:00 EST, Route to Pharmacy Electronically, [id number], 163, cm, 03/30/22 10:35:00 EST, Height, 60, kg, 02/07/22 15:54:00 EDT, Dry Weight Start Date: 05/09/22 Status: Ordered fluticasone 50 mcg/inh nasal spray See Instructions, SPRAY 1 SPRAY INTO EACH NOSTRIL TWICE A DAY, # 48 mL, 1 Refills, Maintenance, 04/25/22 18:01:00 EST, [facility]/pharmacy #0373, 90, SPRAY 1 SPRAY INTO EACH NOSTRIL TWICE A DAY, 163, cm, 03/30/22 10:35:00 EST, Height, 60, kg, 02/07/22 15:54:... Start Date: 04/25/22 Status: Ordered guaiFENesin 400 mg oral tablet 1 tablet = 400 mg, By Mouth, 4 times a day, # 120 tablet, 5 Refills, Maintenance, 10/28/21 14:19:00EDT, Tablet, [facility]/pharmacy #1230, 165, cm, 10/28/21 4:51:00 EDT, [...] tablet, 3 Refills, Maintenance, 04/26/22 9:42:00 EST, [facility], 163, cm, 03/30/22 10:35:00 EST, Height, 60, kg, 02/07/22 15:54:00 EDT, Dry Weight Start Date: 04/26/22 Status: Ordered magnesium oxide 400 mg oral tablet 1 tablet, By Mouth, Daily, # 30 tablet, 6 Refills, Maintenance, 10/19/21 9:10:00 EDT, [facility]/pharmacy #1230, 180, cm, 09/26/21 10:49:00 EDT, Height, 77, kg, 04/20/21 15:47:00 EST, Dry Weight Start Date: 10/19/21 Stop Date: 10/19/21 Status: Ordered Metoprolol Succinate ER 50 mg oral tablet, extended release See Instructions, 1 TABLET BY MOUTH DAILY,INSTR:INSTR:DO NOT CRUSH OR CHEW, # 90 tablet, 1 Refills,Maintenance, 04/25/22 18:03:00 EST, [facility]/pharmacy #0373, 163, cm, 03/30/22 10:35:00 EST, Height, 60,kg, 02/07/22 15:54:00 EDT, Dry Weight Start Date: 04/25/22 Status: Ordered MiraLax oral powder for reconstitution = 17 Gm, By Mouth, 2 times a day, dissolve in water before taking, # 527 Gm, 11 Refills, Maintenance, 10/19/21 9:10:00 EDT, REC Powder, [facility]/pharmacy #1230, Partial fill upon patient request if the prescription is for a schedule II opioid drug., 17 Gm... Start Date: 10/19/21 Status: Ordered montelukast 10 mg oral tablet See Instructions, TAKE 1 TABLET BY MOUTH EVERY DAY AT BEDTIME, # 30 tablet, Refills 11, Tot. Refills 11, Maintenance, 01/20/22 14:03:00 EDT, Instructions Replace Required Details, Route to Pharmacy Electronically, [facility]/pharmacy #1230, 162, cm, 01/20/22... Start Date: 01/20/22 Status: Ordered Neurontin 100 mg oral capsule 100 mg, 1, capsule, By Mouth, 3 times a day, # 90 capsule, Refills 2, Tot. Refills 2, Maintenance, 03/15/22 15:34:00 EST, Route to Pharmacy Electronically, [facility]/pharmacy #0373, Partial fill upon patient request if the prescription is for a schedule II... Start Date: 03/15/22 Status: Ordered omeprazole 20 mg oral delayed release tablet 1 tablet = 20 mg, By Mouth, Daily, # 30 tablet, 11 Refills, Maintenance, 07/10/22 15:48:00 EDT, CR Tablet, [facility]/pharmacy #1230, Partial fill upon patient request [...] 02/21/22 15:17:00 EST, Route to Pharmacy Electronically, [facility], Partial fill upon patient [...] tablet, 1 Refills, Maintenance, 05/28/22 10:29:00 EST, [facility], 163, cm, 03/30/22 10:35:00 EST, Height, 60, kg, 02/07/22 15:54:00 EDT, Dry Weight Start Date: 05/28/22 Status: Ordered riboflavin 400 mg oral capsule 1 capsule = 400 mg, By Mouth, Daily, # 30 capsule, 5 Refills, Maintenance, 06/01/22 12:01:00 EST, [facility]/pharmacy #0373, Partial fill upon patient request if the prescription is for a schedule II opioiddrug., 163, cm, 03/30/22 10:35:00 EST, Height, 60,... Start Date: 06/01/22 Status: Ordered SEROquel 25 mg oral tablet 25 mg, 1, tablet, By Mouth, Daily at bedtime, # 30 tablet, Refills 5, Tot. Refills 5, Maintenance, 10/28/21 14:23:00 EDT, Route to Pharmacy Electronically, [facility]/pharmacy #1230, 165, cm, 10/28/21 4:51:00 EDT, Height, 60.5, kg, 10/26/21 13:16:00 EDT, Dry... Start Date: 10/28/21 Status: Ordered Spiriva Respimat 1.25 mcg/inh inhalation aerosol 2 puffs, Inhalation, Daily, # 4 mL, 3 Refills, Maintenance, 06/28/22 8:12:00 EDT, [facility], 163, cm, 06/02/22 12:59:00 EST, Height, 60, kg, 02/07/22 15:54:00 EDT, Dry Weight Start Date: 06/28/22 Status: Ordered Symbicort 160mcg/4.5mcg Inhaler 2, puffs, Inhalation, 2 times a day, # 10.2 Gm, Refills 10, Tot. Refills 10, 10/19/21 9:10:00 EDT, Route to Pharmacy Electronically, [id number], [facility]/pharmacy #1230, 180, cm,09/26/21 10:49:00 EDT, Height, 77, kg, 04/20/21 15:... Start Date: 10/19/21 Status: Ordered tamsulosin 0.4 mg oral capsule 1, capsule, By Mouth, Daily, # 30 capsule, Refills 11, Tot. Refills 11, Maintenance, 04/25/22 9:53:00 EST, Route to Pharmacy Electronically, [facility]/pharmacy #0373, 163, cm, 03/30/22 10:35:00 EST, Height, 60, kg, 02/07/22 15:54:00 EDT, Dry Weight Start Date: 04/25/22 Status: Ordered traZODone 50 mg oral tablet 2, tablet, By Mouth, Daily at bedtime, # 60 tablet, Refills 3, Maintenance, 06/28/22 8:12:00 EDT, Route to Pharmacy Electronically, [facility], 163, cm, 06/02/22 12:59:00 EST, Height, 60, kg, 02/07/22 15:54:00 EDT, Dry Weight Start Date: 06/28/22 Status: Ordered venlafaxine 37.5 mg oral capsule, extended release 1 capsule, By Mouth, Daily, # 30 capsule, 1 Refills, Maintenance, 05/29/22 11:48:00 EST, [facility], 163, cm, 03/30/22 10:35:00 EST, Height, 60, kg, 02/07/22 15:54:00 EDT, Dry Weight Start Date: 05/29/22 Status: Ordered Ventolin HFA 108 mcg/inh inhalation aerosol with adapter 2 puffs, Inhalation, Every 4 hours, PRN NEEDED FOR WHEEZING, # 18 each, 11 Refills, Maintenance,04/26/22 9:42:00 EST, [facility], 163, cm, 03/30/22 10:35:00 EST, Height, 60, [...] Care Nurse Name: Mike Kruse MD Position: [facility] Primary Care Physician Member Role: PCP Address: Address: [address] [place] [address] Name: Maryam Valenzuela RN Position: S RN [...] Persons Name: ENA SOTO Address: home [address] [place] [address] Name: ELISA TOMPKINS Address: [place] [address] Name: JOSE RAFAEL LI
--- OUTSIDE RECORDS SUMMARY | 2022-09-19 20:55 | XMS_ITS | Continuity of Care Document ---
Author Name Unknown Organization [facility] Trevor lt Address [address] [place] [address]- Care Team Providers Care Rubber Goods Tester Water Name Role Phone Aixa BERNABE, Mike Bennett Primary Care Physician [facility]): [facility] - 08/23/22 [facility] Adult [address] [place] [address]- Attending Physician: AdmEliza flores Admitting Physician: AdmtrEliza Referring Physician: Admtr, Ar8 Allergies, Adverse Reactions, Alerts Substance Reaction Severity Status lisinopril Atenolol Trisha norvegensis Active cloNIDine Active Immunizations Given and Recorded Vaccine Date Status Refusal Reason [id number] 12y+ bivalent booster vax 1 01/20/22 Given [...] Given tetanus/diphtheria/pertussis, acel(Tdap) 04/01/09 Recorded 1Result Comment: [facility] [id number] 2Location History: [facility] 3Result Comment: [11/22/2016] [facility] 4Result Comment: [03/20/2016] [facility] Medications acetaminophen 325 mg oral tablet 650 mg, 2, tablet, By Mouth, Every 4 hours, PRN, # 30 tablet, Refills 0, Tot. Refills 0, Maintenance, Pain , Mild, 02/21/22 15:17:00 EST, Route to Pharmacy Electronically, [facility], Partial fill upon patient request if the prescription... Start Date: 02/21/22 Status: Ordered amLODIPine 5 mg oral tablet 1 tablet, By Mouth, Daily, # 90 tablet, 1 Refills, Maintenance, 02/09/22 12:58:00 EDT, [facility], 163, cm, 02/07/22 18:18:00 EDT, Height, 60, kg, 02/07/22 15:54:00 EDT, Dry Weight Start Date: 02/09/22 Status: Ordered Aspirin Low Dose 81 mg oral delayed release tablet 1 tablet, By Mouth, Daily, # 30 tablet, 11 Refills, 10/19/21 9:10:00 EDT, [facility]/pharmacy #1230, 180, cm, 09/26/21 10:49:00 EDT, Height, [...] 11 Refills, Maintenance, 04/25/22 10:31:00 EST, Tablet, [facility]/pharmacy #0373, Partial fill upon patient request if the prescription is for a schedule II opioid drug., 163, cm, 03/30/22 10:35:00 EST, Height, 60, kg,... Start Date: 04/25/22 Status: Ordered clopidogrel 75 mg oral tablet 1, tablet, By Mouth, Daily, # 90 tablet, Refills 1, Maintenance, 05/09/22 14:00:00 EST, Route to Pharmacy Electronically, [facility]88, 163, cm, 03/30/22 10:35:00 EST, Height, 60, kg, 02/07/22 15:54:00 EDT, Dry Weight Start Date: 05/09/22 Status: Ordered fluticasone 50 mcg/inh nasal spray See Instructions, SPRAY 1 SPRAY INTO EACH NOSTRIL TWICE A DAY, # 48 mL, 1 Refills, Maintenance, 04/25/22 18:01:00 EST, [facility]/pharmacy #0373, 90, SPRAY 1 SPRAY INTO EACH NOSTRIL TWICE A DAY, 163, cm, 03/30/22 10:35:00 EST, Height, 60, kg, 02/07/22 15:54:... Start Date: 04/25/22 Status: Ordered guaiFENesin 400 mg oral tablet 1 tablet = 400 mg, By Mouth, 4 times a day, # 120 tablet, 5 Refills, Maintenance, 10/28/21 14:19:00EDT, Tablet, [facility]/pharmacy #1230, 165, cm, 10/28/21 4:51:00 EDT, Height, [...] tablet, 3 Refills, Maintenance, 04/26/22 9:42:00 EST, [facility] 06[facility], 163, cm, 03/30/22 10:35:00 EST, Height, 60, kg, 02/07/22 15:54:00 EDT, Dry Weight Start Date: 04/26/22 Status: Ordered magnesium oxide 400 mg oral tablet 1 tablet, By Mouth, Daily, # 30 tablet, 6 Refills, Maintenance, 10/19/21 9:10:00 EDT, [facility]/pharmacy #1230, 180, cm, 09/26/21 10:49:00 EDT, Height, 77, kg, 04/20/21 15:47:00 EST, Dry Weight Start Date: 10/19/21 Stop Date: 10/19/21 Status: Ordered Metoprolol Succinate ER 50 mg oral tablet, extended release See Instructions, 1 TABLET BY MOUTH DAILY,INSTR:INSTR:DO NOT CRUSH OR CHEW, # 90 tablet, 1 Refills,Maintenance, 04/25/22 18:03:00 EST, [facility]/pharmacy #0373, 163, cm, 03/30/22 10:35:00 EST, Height, 60,kg, 02/07/22 15:54:00 EDT, Dry Weight Start Date: 04/25/22 Status: Ordered MiraLax oral powder for reconstitution = 17 Gm, By Mouth, 2 times a day, dissolve in water before taking, # 527 Gm, 11 Refills, Maintenance, 10/19/21 9:10:00 EDT, REC Powder, [facility]/pharmacy #1230, Partial fill upon patient request if [...] 03/15/22 15:34:00 EST, Route to Pharmacy Electronically, [facility]/pharmacy #0373, Partial fill upon patient request if the prescription is for a schedule II... Start Date: 03/15/22 Status: Ordered omeprazole 20 mg oral delayed release tablet 1 tablet = 20 mg, By Mouth, Daily, # 30 tablet, 11 Refills, Maintenance, 07/10/22 15:48:00 EDT, CR Tablet, [facility]/pharmacy #1230, Partial fill upon patient request if the prescription is for a schedule II opioid drug., 180, cm, 09/26/21 10:49:00 EDT, Hei... Start Date: 07/10/22 Stop Date: 07/05/23 Status: Ordered oxyCODONE 5 mg oral tablet 5 mg, 1, tablet, By Mouth, Every 4 hours, PRN, # 15 tablet, Refills 0, Tot. Refills 0, Maintenance,Pain , Severe, 02/21/22 15:17:00 EST, Route to Pharmacy Electronically, [facility], Partial fill upon patient request [...] tablet, 1 Refills, Maintenance, 05/28/22 10:29:00 EST, [facility] 67[facility], 163, cm, 03/30/22 10:35:00 EST, Height, 60, kg, 02/07/22 15:54:00 EDT, Dry Weight Start Date: 05/28/22 Status: Ordered riboflavin 400 mg oral capsule 1 capsule = 400 mg, By Mouth, Daily, # 30 capsule, 5 Refills, Maintenance, 06/01/22 12:01:00 EST, [facility]/pharmacy #0373, Partial fill upon patient request if the prescription is for a schedule II opioiddrug., 163, cm, 03/30/22 10:35:00 EST, Height, 60,... Start Date: 06/01/22 Status: Ordered SEROquel 25 mg oral tablet 25 mg, 1, tablet, By Mouth, Daily at bedtime, # 30 tablet, Refills 5, Tot. Refills 5, Maintenance, 10/28/21 14:23:00 EDT, Route to Pharmacy Electronically, [facility]/pharmacy #1230, 165, cm, 10/28/21 4:51:00 EDT, Height, 60.5, kg, 10/26/21 13:16:00 EDT, Dry... Start Date: 10/28/21 Status: Ordered Spiriva Respimat 1.25 mcg/inh inhalation aerosol 2 puffs, Inhalation, Daily, # 4 mL, 3 Refills, Maintenance, 06/28/22 8:12:00 EDT, [facility]78, 163, cm, 06/02/22 12:59:00 EST, Height, 60, kg, 02/07/22 15:54:00 EDT, Dry Weight Start Date: 06/28/22 Status: Ordered Symbicort 160mcg/4.5mcg Inhaler 2, puffs, Inhalation, 2 times a day, # 10.2 Gm, Refills 10, Tot. Refills 10, 10/19/21 9:10:00 EDT, Route to Pharmacy Electronically, [id number], [facility]/pharmacy #1230, 180, cm,09/26/21 10:49:00 EDT, Height, 77, kg, 04/20/21 15:... Start Date: 10/19/21 Status: Ordered tamsulosin 0.4 mg oral capsule 1, capsule, By Mouth, Daily, # 30 capsule, Refills 11, Tot. Refills 11, Maintenance, 04/25/22 9:53:00 EST, Route to Pharmacy Electronically, [facility]/pharmacy #0373, 163, cm, 03/30/22 10:35:00 EST, Height, 60, kg, 02/07/22 15:54:00 EDT, Dry Weight Start Date: 04/25/22 Status: Ordered traZODone 50 mg oral tablet 2, tablet, By Mouth, Daily at bedtime, # 60 tablet, Refills 3, Maintenance, 06/28/22 8:12:00 EDT, Route to Pharmacy Electronically, [facility], 163, cm, 06/02/22 12:59:00 EST, Height, 60, kg, 02/07/22 15:54:00 EDT, Dry Weight Start Date: 06/28/22 Status: Ordered venlafaxine 37.5 mg oral capsule, extended release 1 capsule, By Mouth, Daily, # 30 capsule, 1 Refills, Maintenance, 05/29/22 11:48:00 EST, [facility], 163, cm, 03/30/22 10:35:00 EST, Height, 60, kg, 02/07/22 15:54:00 EDT, Dry Weight Start Date: 05/29/22 Status: Ordered Ventolin HFA 108 mcg/inh inhalation aerosol with adapter 2 puffs, Inhalation, Every 4 hours, PRN NEEDED FOR WHEEZING, # 18 each, 11 Refills, Maintenance,04/26/22 9:42:00 EST, [facility] 127[facility], 163, cm, 03/30/22 10:35:00 EST, Height, 60, [...] Response Smoking Status 5-9 cigarettes (betw een 04/19 to 1/2 pack)/day in last 30 days; [...] Unknown 03/13/26 Unknown Unknown Active Un known Cardiology * Event Display: EKG Non BH Authored Date: EKG study * Event Display: EKG Authored Date: * Event Display: EKG Authored Date: Laboratory * Event Display: Laboratory Result Scanned Authored Date: * Event Display: Laboratory Result Scanned Authored Date: * Event Display: Non BH Lab Results Authored Date: Note * Ilda Rdz RN: PERFORM, SIGN, VERIFY Event Display: Case Management Discharge Plan Authored Date: Patient: GERBER GONZALEZ Age: 58 years Sex: Male : 1960 Associated Diagnoses: None Author: Ilda Rdz RN Care Management Discharge Call Note Discharge date 01/20/2019 Date of contact 01/22/2019 Diagnosis nose bleed Discharge instructions were reviewed with the patient? Yes Medication reconciliation performed Yes Looks like you were recently discharged from the hospital (ED), how are you feeling? feeling better no further nose bleed Please tell me the problem or condition that brought you to the hospital (ED)? nose bleed Do you know what to do in case of an emergency? yes Were you given any prescriptions to fill? Yes. Do you understand how to take your medication? Yes Do you have an appointment already scheduled with your PCP? No Is date appropriate: declined. * Event Display: Cardiology Office Note, Non-BH Authored Date: * Ilda Rdz: PERFORM, SIGN, VERIFY Event Display: Case Management Discharge Plan Authored Date: Patient: GERBER GONZALEZ Age: 58 years Sex: Male : 1960 Associated Diagnoses: None Author: Ilda Rdz Care Management Discharge Call Note Discharge date 10/23/2018 Date of contact 10/25/2018 Diagnosis SOB If patient went for emergency services was this patient referred? Discharge instructions were reviewed with the patient? Yes Medication reconciliation performed Yes Looks like you were recently discharged from the hospital (ED), how are you feeling? at [facility] couldn't breath blacked out was given breathing treatments and IV K levels were low told him to stop losartan and buspirone is homeless , living in a tent he has NO one no ride no one to help him he left him apartment due to his GF doing drugs and he applied for housing in [place], waiting taking it day by day Please tell me the problem or condition that brought you to the hospital (ED)? SOB Do you know what to do in case of an emergency? yes Were you given any prescriptions to fill? No Do you have an appointment already scheduled with your PCP? Yes Is date appropriate: tl sunday. XR Chest Views * Event Display: X-Ray Chest Authored Date: Radiology * Event Display: X-Ray Shoulder, Non- BH Authored Date: * Event Display: X-Ray Chest, Non- BH Authored Date: Patient Care team information Care Team Personnel Name: Ana West RN Position: S RN Member Role: Primary Care Nurse Name: Odalys Orozco RN Position: S RN Member Role: Primary Care Nurse Name: Mike Kruse MD Position: S Primary Care Physician Member Role: PCP Address: Address: [address] [place] [id number]- Name: Maryam Valenzuela RN Position: S RN Member Role: Primary Care Nurse Name: Deandre Lara LPN Position: S RN Member Role: Primary Care Nurse Name: Hayden Queen RN Position: S RN Member Role: Primary Care Nurse Name: Aruna Winkler RN Position: S RN Member Role: Primary Care Nurse Name: Sabrina Hare RN Position: [facility] RN Member Role: Primary Care Nurse Name: Kristyn Olivo RN Position: S RN Member Role: Primary Care Nurse Name: Marguerite Florentino RN Position: [facility] RN Member Role: Primary Care Nurse Care Team Related Persons Name: ENA SOTO Address: home [address] [place] [id number] Name: ELISA TOMPKINS Address: [place] [address] Name: JOSE RAFAEL LI
--- OUTSIDE RECORDS SUMMARY | 2022-09-19 20:55 | XMS_ITS | Continuity of Care Document ---
Author Name Unknown Organization [facility] Trevor lt Address [address] [place] [address]- Care Team Providers Care Technical Associate Name Role Phone Mike Tristan MD Primary Care Physician [phone] Encounter [facility] [place] Date(s): 08/31/20 - 09/07/20 [facility] Adult [address] [place] [address]- Encounter Diagnosis Allergic conjunctivitis(Discharge Diagnosis) - 08/31/20 Allergic rhinitis due to pollen(Discharge Diagnosis) - 08/31/20 HTN (hypertension)(Discharge Diagnosis) - 08/31/20 Attending Physician: Sven Hernandez MD Referring Physician: Andrade HOOD, Margi Harrell Allergies, Adverse Reactions, Alerts Substance Reaction Severity [...] 05/05/20 13:45:00 EST, Route to Pharmacy Electronically, [facility], 174, cm, 03/01/20 11:26:00 EST, Height, 57, kg, 03/19/19 14:07:00 EST, Dry Weight Start Date: 05/05/20 Status: Ordered aspirin 81 mg oral tablet 1 tablet = 81 mg, By Mouth, Daily, PER DR TRISTAN, # 30 tablet, 5 Refills, Maintenance, 10/13/19 13:42:00 EDT, Tablet, [facility], 174, cm, 10/01/19 13:58:00 EDT, Height, [...] Gm, 11 Refills, Maintenance, 05/07/20 10:33:00 EST, [facility], 30, 1 puffs Inhalation 4 times a day,PRN: NEEDED FOR WHEEZING OR SHORTNESS OF BREATH... Start Date: 05/07/20 Status: Ordered cromolyn 4% ophthalmic solution 1 drops, Eye, Left, 4 times a day, # 10 mL, 0 Refills, Maintenance, 08/31/20 9:58:00 EDT, Solution,[facility], Partial fill upon patient request [...] 2 Refills, Maintenance, 08/17/20 14:09:00 EDT, Capsule, [facility], Partial fill upon patient request if [...] Maintenance, 04/27/2113:59:00 EST, Route to Pharmacy Electronically, [facility], 174, cm, 03/01/20 11:26:00 EST, Height, 57, kg, 03/19/19 14:07:00 EST, Dry Weight Start Date: 04/27/20 Status: Ordered fluticasone 50 mcg/inh nasal spray See Instructions, INSTILL 1 SPRAY INTO EACH NOSTRIL TWICE DAILY, # 16 Gm, 2 Refills, 08/24/20 15:55:00 EDT, [facility], 30, INSTILL 1 SPRAY INTO EACH [...] 1 Refills, Maintenance, 08/17/20 14:11:00 EDT, Capsule, [facility], Partial fill upon patient request if the prescription is for a scheduleII opioid drug., 174, cm, 08/17/20 13:45:00 EDT, He... Start Date: 08/17/20 Status: Ordered losartan 100 mg oral tablet 1 tablet, By Mouth, Daily, # 30 tablet, 11 Refills, Maintenance, 07/12/20 14:44:00 EDT, [facility], 174, cm, 07/12/20 14:32:00 EDT, Height, 57, kg, 03/19/19 14:07:00 EST, Dry Weight Start Date: 07/12/20 Status: Ordered metoprolol 50 mg oral tablet, extended release 50 mg, 1, tablet, By Mouth, Daily, do not crush or chew, # 30 tablet, Refills 11, Tot. Refills 11, Maintenance, 07/12/20 14:44:00 EDT, Route to Pharmacy Electronically, [facility], 174, cm,07/12/20 14:32:00 EDT, Height, 57, kg, 03/19/19 14:... Start Date: 07/12/20 Status: Ordered Nasacort Allergy 24HR 55 mcg/inh nasal spray 2 sprays, Nares, Both, Daily, # 3 each, 0 Refills, Maintenance, 01/08/20 14:50:00 EDT, [facility], 2 sprays Nares, Both Daily, 174, cm, 01/08/20 14:29:00 EDT, Height, 57, kg, 03/19/19 14:07:00 EST, Dry Weight Start Date: 01/08/20 Status: Ordered nicotine 4 mg oral transmucosal lozenge 1 lozenge = 4 mg, By Mouth, Every hour, # 189 lozenge, 11 Refills, Maintenance, 07/12/20 14:49:00 EDT, [facility], 1 lozenge By Mouth Every hour, 174, cm, 07/12/20 14:32:00 EDT, Height, 57,kg, 03/19/19 14:07:00 EST, Dry Weight Start Date: 07/12/20 Status: Ordered omeprazole 20 mg oral enteric coated capsule 1 capsule, By Mouth, Daily, # 14 capsule, 0 Refills, Maintenance, 07/05/20 8:06:00 EDT, [facility], 174, cm, 06/22/20 14:37:00 EST, Height, 57, kg, 03/19/19 14:07:00 EST, Dry Weight Start Date: 07/05/20 Stop Date: 07/19/20 Status: Ordered pravastatin 40 mg oral tablet 1 tablet = 40 mg, By Mouth, Daily, # 90 tablet, 1 Refills, Maintenance, 08/24/20 15:56:00 EDT, Tablet, [facility], 174, cm, 08/17/20 13:45:00 EDT, Height, [...] By Mouth, Daily at bedtime, PER ARPIT DNUN, # 30 tablet, Refills 5, Tot. Refills 5, Maintenance, 05/05/20 13:42:00 EST, Route to Pharmacy Electronically, [facility], 174, cm, 03/01/20 11:26:00 EST, Height, 57, kg, 12... Start Date: 05/05/20 Status: Ordered Spiriva Respimat 1.25 mcg/inh inhalation aerosol 2 puffs, Inhalation, Daily, # 4 Gm, 11 Refills, Maintenance, 05/25/20 13:51:00 EST, Aerosol, [facility], Partial fill upon patient request if the prescription is for a schedule II opioid drug., 174, cm, 05/07/20 10:13:00 EST, Height, 57, kg,... Start Date: 05/25/20 Status: Ordered Symbicort 160mcg/4.5mcg Inhaler 2, puffs, Inhalation, 2 times a day, # 1 each, Refills 11, Tot. Refills 11, Maintenance, 05/25/20 13:51:00 EST, Aerosol, Route to Pharmacy Electronically, [id number], [facility], 174,cm, 05/07/20 10:13:00 EST, Height, 57, kg, 03/19/19... Start Date: 05/25/20 Status: Ordered traZODone 50 mg oral tablet 100 mg, 2, tablet, By Mouth, Daily at bedtime, # 60 tablet, Refills 11, Tot. Refills 11, Maintenance, 07/12/20 14:43:00 EDT, Route to Pharmacy Electronically, [facility], 174, cm, 07/12/20 14:32:00 EDT, Height, 57, kg, 03/19/19 14:07:00 EST,... Start Date: 07/12/20 Status: Ordered Tylenol Extra Strength 500 mg oral tablet See Instructions, PRN for pain, 1 or 2 tablet By Mouth 3 times a day PER DR TRISTAN, # 100 tablet, 11 Refills, Maintenance, 06/08/20 10:22:00 EST, Tablet, [facility], 174, cm, 06/08/20 9:48:00 EST, Height, 57, kg, 03/19/19 14:07:00 EST, Dry Weight Start Date: 06/08/20 Status: Ordered ZyrTEC 10 mg oral tablet 1 tablet = 10 mg, By Mouth, Daily, # 30 tablet, 5 Refills, Maintenance, 03/08/20 8:02:00 EST, Tablet, [facility], 174, cm, 03/01/20 11:26:00 EST, Height, [...] Effective Dates Health Status Clinical Service Informant Allergic conjunctivitis Discharge Diagnosis 08/31/20 Allergic rhinitis due to pollen Discharge Diagnosis 08/31/20 HTN (hypertension) Discharge Diagnosis 08/31/20 Vital Signs Most recent to oldest [Reference Range]: 1 Height 174 cm (08/31/20 9:23 AM) Blood Pressure [90-138/55-84 mm Hg] 150/ 78mm Hg *H* (08/31/20 9:23 AM) Social History Social History Type Response Smoking Status 5-9 cigarettes (estela lemon 1/4 to 1/2 pack)/day in last 30 days entered on: 05/26/19 Sex
--- OUTSIDE RECORDS SUMMARY | 2022-09-19 20:55 | XMS_ITS | Continuity of Care Document ---
Author Name Unknown Organization [facility] Trevor lt Address [address] [place] [address]- Care Team Providers Care Development Editor Name Role Phone Mike Tristan MD Primary Care Physician [phone] Encounter [facility] Date(s): 01/26/21 - 02/25/21 [facility] Adult [address] [place] [address]- Allergies, Adverse Reactions, Alerts Substance Reaction Severity [...] 01/10/21 16:35:00 EDT, Route to Pharmacy Electronically, [facility], 174, cm, 12/30/20 14:45:00 EDT, Height, 57, kg, 03/19/19 14:07:00 EST, Dry Weight Start Date: 01/10/21 Status: Ordered Aspirin Low Dose 81 mg oral delayed release tablet 1 tablet, By Mouth, Daily, # 30 tablet, 2 Refills, [facility], 174, cm, 01/14/21 15:08:00EDT, Height, 57, kg, 03/19/19 14:07:00 EST, Dry Weight Start Date: 01/25/21 Status: Ordered Combivent Respimat 20 mcg-100 mcg/inh inhalation aerosol 1 puffs, Inhalation, 4 times a day, PRN NEEDED FOR WHEEZING OR SHORTNESS OF BREATH, # 4 Gm, 11 Refills, Maintenance, 05/07/20 10:33:00 EST, [facility], 30, 1 puffs Inhalation 4 times a day,PRN: NEEDED FOR WHEEZING OR SHORTNESS OF BREATH... Start Date: 05/07/20 Status: Ordered docusate sodium 100 mg oral capsule 1 capsule = 100 mg, By Mouth, 2 times a day, PRN as needed for constipation, # 100 capsule, 2 Refills, Maintenance, 08/17/20 14:09:00 EDT, Capsule, [facility], Partial fill upon patient request if [...] 16 Gm, 2 Refills, 08/24/20 15:55:00 EDT, [facility], 30, INSTILL 1 SPRAY INTO EACH [...] 1 Refills, Maintenance, 11/30/20 11:11:00 EDT, Capsule, [facility], Partial fill upon patient request if the prescription is for a scheduleII opioid drug., 174, cm, 11/30/20 10:34:00 EDT, He... Start Date: 11/30/20 Status: Ordered losartan 100 mg oral tablet 1 tablet, By Mouth, Daily, # 30 tablet, 11 Refills, Maintenance, 07/12/20 14:44:00 EDT, [facility], 174, cm, 07/12/20 14:32:00 EDT, Height, 57, kg, 03/19/19 14:07:00 EST, Dry Weight Start Date: 07/12/20 Status: Ordered metoprolol 50 mg oral tablet, extended release 50 mg, 1, tablet, By Mouth, Daily, do not crush or chew, # 30 tablet, Refills 11, Tot. Refills 11, Maintenance, 07/12/20 14:44:00 EDT, Route to Pharmacy Electronically, [facility], 174, cm,07/12/20 14:32:00 EDT, Height, 57, kg, 03/19/19 14:... Start Date: 07/12/20 Status: Ordered montelukast 10 mg oral tablet 1, tablet, By Mouth, Daily at bedtime, # 30 tablet, Refills 4, Tot. Refills 0, Maintenance, 10/20/20 11:07:00 EDT, Route to Pharmacy Electronically, [facility], 174, cm, 09/14/20 14:37:00 EDT, Height, 57, kg, 03/19/19 14:07:00 EST, Dry Weight Start Date: 10/20/20 Status: Ordered Nasacort Allergy 24HR 55 mcg/inh nasal spray 2 sprays, Nares, Both, Daily, # 3 each, 0 Refills, Maintenance, 01/08/20 14:50:00 EDT, [facility], 2 sprays Nares, Both Daily, 174, cm, 01/08/20 14:29:00 EDT, Height, 57, kg, 03/19/19 14:07:00 EST, Dry Weight Start Date: 01/08/20 Status: Ordered nicotine 4 mg oral transmucosal lozenge 1 lozenge = 4 mg, By Mouth, Every hour, # 189 lozenge, 11 Refills, Maintenance, 07/12/20 14:49:00 EDT, [facility], 1 lozenge By Mouth Every hour, 174, cm, 07/12/20 14:32:00 EDT, Height, 57,kg, 03/19/19 14:07:00 EST, Dry Weight Start Date: 07/12/20 Status: Ordered omeprazole 20 mg oral enteric coated capsule 1 capsule, By Mouth, Daily, # 14 capsule, 0 Refills, Maintenance, 07/05/20 8:06:00 EDT, [facility], 174, cm, 06/22/20 14:37:00 EST, Height, 57, kg, 03/19/19 14:07:00 EST, Dry Weight Start Date: 07/05/20 Stop Date: 07/19/20 Status: Ordered pravastatin 40 mg oral tablet 1 tablet = 40 mg, By Mouth, Daily, # 90 tablet, 1 Refills, Maintenance, 08/24/20 15:56:00 EDT, Tablet, [facility], 174, cm, 08/17/20 13:45:00 EDT, Height, 57, kg, 03/19/19 14:07:00 EST, DryWeight Start Date: 08/24/20 Status: Ordered Remeron 15 mg oral tablet 1 tablet = 15 mg, By Mouth, Daily at bedtime, REPLACES ZOLOFT, # 30 tablet, 1 Refills, Maintenance,06/22/20 15:13:00 EST, Tablet, [facility], Partial fill upon patient request if the prescription is for a schedule II opioid drug., 174, cm,... Start Date: 06/22/20 Status: Ordered Spiriva Respimat 1.25 mcg/inh inhalation aerosol 2 puffs, Inhalation, Daily, # 4 Gm, 11 Refills, Maintenance, 05/25/20 13:51:00 EST, Aerosol, [facility], Partial fill upon patient request if the prescription is for a schedule II opioid drug., 174, cm, 05/07/20 10:13:00 EST, Height, 57, kg,... Start Date: 05/25/20 Status: Ordered Symbicort 160mcg/4.5mcg Inhaler 2, puffs, Inhalation, 2 times a day, # 1 each, Refills 11, Tot. Refills 11, Maintenance, 05/25/20 13:51:00 EST, Aerosol, Route to Pharmacy Electronically, [id number]_[id number], [facility], 174,cm, 05/07/20 10:13:00 EST, Height, 57, kg, 03/19/19... Start Date: 05/25/20 Status: Ordered tamsulosin 0.4 mg oral capsule 1, capsule, By Mouth, Daily, # 30 capsule, Refills 4, Tot. Refills 0, Maintenance, 10/20/20 11:06:00 EDT, Route to Pharmacy Electronically, [facility], 174, cm, 09/14/20 14:37:00 EDT, Height, 57, kg, 03/19/19 14:07:00 EST, Dry Weight Start Date: 10/20/20 Status: Ordered traZODone 50 mg oral tablet 100 mg, 2, tablet, By Mouth, Daily at bedtime, # 60 tablet, Refills 11, Tot. Refills 11, Maintenance, 07/12/20 14:43:00 EDT, Route to Pharmacy Electronically, [facility], 174, cm, 07/12/20 14:32:00 EDT, Height, 57, kg, 03/19/19 14:07:00 EST,... Start Date: 07/12/20 Status: Ordered Tylenol Extra Strength 500 mg oral tablet See Instructions, PRN for pain, 1 or 2 tablet By Mouth 3 times a day PER DR TRISTAN, # 100 tablet, 11 Refills, Maintenance, 06/08/20 10:22:00 EST, Tablet, [facility], 174, cm, 06/08/20 9:48:00 EST, Height, [...]
--- OUTSIDE RECORDS SUMMARY | 2022-09-19 20:55 | XMS_ITS | Continuity of Care Document ---
Author Name Unknown Organization [facility] Trevor lt Address [address] [place] [address]- Care Team Providers Care Rotoformer Backtender Name Role Phone Mike Tristan MD Primary Care Physician Encounter [facility] Date(s): 02/23/21 - 03/25/21 [facility] Adult [address] [place] [address]- Allergies, Adverse Reactions, Alerts Substance Reaction Severity [...] 01/10/21 16:35:00 EDT, Route to Pharmacy Electronically, [facility], 174, cm, 12/30/20 14:45:00 EDT, Height, 57, kg, 03/19/19 14:07:00 EST, Dry Weight Start Date: 01/10/21 Status: Ordered Aspirin Low Dose 81 mg oral delayed release tablet 1 tablet, By Mouth, Daily, # 30 tablet, 2 Refills, [facility], 174, cm, 01/14/21 15:08:00EDT, Height, 57, kg, 03/19/19 14:07:00 EST, Dry Weight Start Date: 01/25/21 Status: Ordered Augmentin 875 mg-125 mg oral tablet 1 tablet, By Mouth, Every 12 hours, for 10 days, with food or milk, # 20 tablet, 0 Refills, Acute 04/01/21 15:09:00 EST, 03/22/21 15:09:00 EST, Tablet, [facility], Partial fill upon patientrequest if the prescription is for a schedule II op... Start Date: 03/22/21 Stop Date: 04/01/21 Status: Ordered Combivent Respimat 20 mcg-100 mcg/inh inhalation aerosol 1 puffs, Inhalation, 4 times a day, PRN NEEDED FOR WHEEZING OR SHORTNESS OF BREATH, # 4 Gm, 11 Refills, Maintenance, 05/07/20 10:33:00 EST, [facility], 30, 1 puffs Inhalation 4 times a day,PRN: NEEDED FOR WHEEZING OR SHORTNESS OF BREATH... Start Date: 05/07/20 Status: Ordered Coricidin HBP Cough & Cold 4 mg-30 mg oral tablet 1 tablet, By Mouth, 3 times a day, PRN for cold symptoms, # 21 tablet, 0 Refills, Maintenance, 03/18/21 15:02:00 EST, Tablet, [facility], Partial fill upon patient request if the prescription is for a schedule II opioid drug., 1 tablet By Mo... Start Date: 03/18/21 Status: Ordered docusate sodium 100 mg oral capsule 1 capsule = 100 mg, By Mouth, 2 times a day, PRN as needed for constipation, # 100 capsule, 2 Refills, Maintenance, 08/17/20 14:09:00 EDT, Capsule, [facility], Partial fill upon patient request if [...] A DAY, # 16 Gm, 1 Refills, [facility], 30, USE 1 SPRAY IN EACH [...] 1 Refills, Maintenance, 11/30/20 11:11:00 EDT, Capsule, [facility], Partial fill upon patient request if the prescription is for a scheduleII opioid drug., 174, cm, 11/30/20 10:34:00 EDT, He... Start Date: 11/30/20 Status: Ordered losartan 100 mg oral tablet 1 tablet, By Mouth, Daily, # 30 tablet, 11 Refills, Maintenance, 07/12/20 14:44:00 EDT, [facility], 174, cm, 07/12/20 14:32:00 EDT, Height, 57, kg, 03/19/19 14:07:00 EST, Dry Weight Start Date: 07/12/20 Status: Ordered metoprolol 50 mg oral tablet, extended release 50 mg, 1, tablet, By Mouth, Daily, do not crush or chew, # 30 tablet, Refills 11, Tot. Refills 11, Maintenance, 07/12/20 14:44:00 EDT, Route to Pharmacy Electronically, [facility], 174, cm,07/12/20 14:32:00 EDT, Height, 57, kg, 03/19/19 14:... Start Date: 07/12/20 Status: Ordered montelukast 10 mg oral tablet 1, tablet, By Mouth, Daily at bedtime, # 30 tablet, Refills 4, Tot. Refills 0, Maintenance, 10/20/20 11:07:00 EDT, Route to Pharmacy Electronically, [facility], 174, cm, 09/14/20 14:37:00 EDT, Height, 57, kg, 03/19/19 14:07:00 EST, Dry Weight Start Date: 10/20/20 Status: Ordered Nasacort Allergy 24HR 55 mcg/inh nasal spray 2 sprays, Nares, Both, Daily, # 3 each, 0 Refills, Maintenance, 01/08/20 14:50:00 EDT, [facility], 2 sprays Nares, Both Daily, 174, cm, 01/08/20 14:29:00 EDT, Height, 57, kg, 03/19/19 14:07:00 EST, Dry Weight Start Date: 01/08/20 Status: Ordered nicotine 4 mg oral transmucosal lozenge 1 lozenge = 4 mg, By Mouth, Every hour, # 189 lozenge, 11 Refills, Maintenance, 07/12/20 14:49:00 EDT, [facility], 1 lozenge By Mouth Every hour, 174, cm, 07/12/20 14:32:00 EDT, Height, 57,kg, 03/19/19 14:07:00 EST, Dry Weight Start Date: 07/12/20 Status: Ordered omeprazole 20 mg oral enteric coated capsule 1 capsule, By Mouth, Daily, # 14 capsule, 0 Refills, Maintenance, 03/22/21 15:07:00 EST, [facility], 174, cm, 03/22/21 13:58:00 EST, Height Start Date: 03/22/21 Stop Date: 04/05/21 Status: Ordered pravastatin 40 mg oral tablet 1 tablet = 40 mg, By Mouth, Daily, # 90 tablet, 1 Refills, Maintenance, 08/24/20 15:56:00 EDT, Tablet, [facility], 174, cm, 08/17/20 13:45:00 EDT, Height, 57, kg, 03/19/19 14:07:00 EST, DryWeight Start Date: 08/24/20 Status: Ordered predniSONE 20 mg oral tablet See Instructions, 2 tablets daily for 5 days and then 1 tablet daily for 5 days, # 15 tablet, 0 Refills, Maintenance, 03/22/21 15:09:00 EST, [facility], Partial fill upon patient request ifthe prescription is for a schedule II opioid drug.,... Start Date: 03/22/21 Status: Ordered ProAir HFA 90 mcg/inh inhalation aerosol with adapter 2, puffs, Inhalation, Every 6 hours, PRN, # 8.5 Gm, Refills 0, Tot. Refills 0, Maintenance, 03/22/21 15:09:00 EST, Aerosol, Route to Pharmacy Electronically, [id number]_[id number], [facility], 174, cm, 03/22/21 13:58:00 EST, Height Start Date: 03/22/21 Status: Ordered Remeron 15 mg oral tablet 1 tablet = 15 mg, By Mouth, Daily at bedtime, REPLACES ZOLOFT, # 30 tablet, 1 Refills, Maintenance,06/22/20 15:13:00 EST, Tablet, [facility], Partial fill upon patient request if the prescription is for a schedule II opioid drug., 174, cm,... Start Date: 06/22/20 Status: Ordered Spiriva Respimat 1.25 mcg/inh inhalation aerosol 2 puffs, Inhalation, Daily, # 4 Gm, 11 Refills, Maintenance, 05/25/20 13:51:00 EST, Aerosol, [facility], Partial fill upon patient request if the prescription is for a schedule II opioid drug., 174, cm, 05/07/20 10:13:00 EST, Height, 57, kg,... Start Date: 05/25/20 Status: Ordered Symbicort 160mcg/4.5mcg Inhaler 2, puffs, Inhalation, 2 times a day, # 1 each, Refills 11, Tot. Refills 11, Maintenance, 05/25/20 13:51:00 EST, Aerosol, Route to Pharmacy Electronically, [id number], [facility], 174,cm, 05/07/20 10:13:00 EST, Height, 57, kg, 03/19/19... Start Date: 05/25/20 Status: Ordered tamsulosin 0.4 mg oral capsule 1, capsule, By Mouth, Daily, # 30 capsule, Refills 5, Route to Pharmacy Electronically, [facility], 174, cm, 03/15/21 10:16:00 EST, Height, 57, kg, 03/19/19 14:07:00 EST, Dry Weight Start Date: 03/15/21 Status: Ordered traZODone 50 mg oral tablet 100 mg, 2, tablet, By Mouth, Daily at bedtime, # 60 tablet, Refills 11, Tot. Refills 11, Maintenance, 07/12/20 14:43:00 EDT, Route to Pharmacy Electronically, [facility], 174, cm, 07/12/20 14:32:00 EDT, Height, 57, kg, 03/19/19 14:07:00 EST,... Start Date: 07/12/20 Status: Ordered Tylenol Extra Strength 500 mg oral tablet See Instructions, PRN for pain, 1 or 2 tablet By Mouth 3 times a day PER DR TRISTAN, # 100 tablet, 11 Refills, Maintenance, 06/08/20 10:22:00 EST, Tablet, [facility], 174, cm, 06/08/20 9:48:00 EST, Height, [...]
--- OUTSIDE RECORDS SUMMARY | 2022-09-19 20:55 | XMS_ITS | Continuity of Care Document ---
Author Name Unknown Organization [facility] Trevor Address [address] [place] [address]- Care Team Providers Care Outdoor Education Teacher Name Role Phone Mike Tristan MD Primary Care Physician [facility]counter [facility] Date(s): 01/16/20 - 02/15/20 [facility] [address] [place] [id number]- [facility] Allergies, Adverse Reactions, Alerts Substance Reaction Severity [...] 12:49:00 EDT, Aerosol, Route to Pharmacy Electronically, NCPDP_[id number], [facility], 174, cm, 10/01/19 13:58:00 EDT, Height, 57, kg, 04... Start Date: 11/17/19 Status: Ordered amLODIPine 5 mg oral tablet 5 mg, 1, tablet, By Mouth, Daily, # 90 tablet, Refills 3, Tot. Refills 3, Soft Stop, 02/10/19 13:40:35 EDT, Route to Pharmacy Electronically, NCPDP_[id number], [facility] [address] [facility] Start Date: 02/10/19 Stop Date: [...] 0 Refills, Maintenance, 06/12/19 8:06:00 EST, Aerosol, [facility], 1 puffs Inhalation 4 times a [...] Maintenance, 10/12/2012:42:00 EDT, Route to Pharmacy Electronically, [facility], 174, cm, 10/01/19 13:58:00 EDT, Height, [...] 10/14/19 8:46:00 EDT, Route to Pharmacy Electronically, [facility], 174, cm, 10/01/19 13:58:00 EDT, Height, 57, kg, 03/19/19 14:07:... Start Date: 10/14/19 Status: Ordered Nasacort Allergy 24HR 55 mcg/inh nasal spray 2 sprays, Nares, Both, Daily, # 3 each, 0 Refills, Maintenance, 01/08/20 14:50:00 EDT, [facility], 2 sprays Nares, Both Daily, 174, [...] 10/13/19 13:42:00 EDT, Route to Pharmacy Electronically, [facility], 174, cm, 10/01/19 13:58:00 EDT, Height, 57, kg, 12... Start Date: 10/13/19 Status: Ordered Spiriva HandiHaler 18 mcg inhalation capsule 1 capsule = 18 mcg, Inhalation, Daily, use two inhalations of one capsule for each dose, # 30 capsule, 6 Refills, Maintenance, 07/10/19 14:54:00 EDT, [facility], 174, cm, 05/26/19 14:06:00 EST, Height, 57, kg, 03/19/19 14:07:00 EST, Dry Weight Start Date: 07/10/19 Stop Date: 02/05/20 Status: Ordered traZODone 50 mg oral tablet 100 mg, 2, tablet, By Mouth, Daily at bedtime, # 60 tablet, Refills 5, Tot. Refills 5, Maintenance,01/06/20 15:12:00 EDT, Route to Pharmacy Electronically, [facility], 174, cm, 10/01/19 13:58:00 EDT, Height, [...] 5 Refills, Maintenance, 01/06/20 15:11:00 EDT, Tablet, [facility], 174, cm, 10/01/19 13:58:00 EDT, Height, [...]
--- OUTSIDE RECORDS SUMMARY | 2022-09-19 20:55 | XMS_ITS | Continuity of Care Document ---
Author Name Unknown Organization [facility] Trevor lt Address [address] [place] [address]- Care Team Providers Care Skiver Welt End Name Role Phone Mike Kruse MD Primary Care Physician Encounter [facility] [place](s): 08/23/21 - 10/26/21 [facility] [address] [place] [address]- Attending Physician: Rachell Shannon NP Referring Physician: [...] wheezing, # 60 each, 11 Refills, Maintenance, 10/19/21 9:10:00 EDT, Solution, [facility]/pharmacy #[id number], Partial fill upon patient request if the prescription is for a schedule II opioid drug., 180, cm, 09/26... Start Date: 10/19/21 Status: Ordered amLODIPine 5 mg oral tablet 5 mg, 1, tablet, By Mouth, Daily, # 90 tablet, Refills 1, Tot. Refills 1, Soft Stop, 10/19/21 9:10:00 EDT, Route to Pharmacy Electronically, [facility]/pharmacy #[id number], 180, cm, 09/26/21 10:49:00 EDT, Height, 77, kg, 04/20/21 15:47:00 EST, Dry Weight Start Date: 10/19/21 Status: Ordered Aspirin Low Dose 81 mg oral delayed release tablet 1 tablet, By Mouth, Daily, # 30 tablet, 11 Refills, 10/19/21 9:10:00 EDT, [facility]/pharmacy #[id number], 180, cm, 09/26/21 10:49:00 EDT, Height, 77, kg, 04/20/21 15:47:00 EST, Dry Weight Start Date: 10/19/21 Status: Ordered Claritin 10 mg oral tablet 10 mg, 1, tablet, By Mouth, Daily, REPLACES ZYRTEC, # 30 tablet, Refills 6, Tot. Refills 6, Maintenance, 10/19/21 9:10:00 EDT, Route to Pharmacy Electronically, [facility]/pharmacy #[id number], Partial fill upon patient request if the prescription is for a schedul... Start Date: 10/19/21 Status: Ordered Dulcolax Stool Softener 100 mg oral capsule 1 capsule = 100 mg, By Mouth, 2 times a day, # 60 capsule, 11 Refills, Maintenance, 07/21/22 14:09:00 EDT, Capsule, [facility]/pharmacy #[id number], Partial fill upon patient request if the prescription is for a schedule II opioid drug., 180, cm, 09/26/21 10:49:00... Start Date: 07/21/22 Stop Date: 07/16/23 Status: Ordered fluticasone 50 mcg/inh nasal spray See Instructions, USE 1 SPRAY IN EACH NOSTRIL TWICE A DAY, # 16 Gm, 5 Refills, 10/19/21 9:10:00 EDT, [facility]/pharmacy #[id number], 30, USE 1 SPRAY IN EACH NOSTRIL TWICE A DAY, 180, cm, 09/26/21 10:49:00 EDT, Height, 77, kg, 04/20/21 15:47:00 EST, Dry Weight Start Date: 10/19/21 Status: Ordered guaiFENesin 100 mg/5 mL oral liquid 5 mL = 100 mg, By Mouth, Every 4 hours, PRN for cough, # 300 mL, 0 Refills, Maintenance, 10/12/21 17:43:00 EDT, Liquid, [facility]/pharmacy #[id number], Partial fill upon patient request if the prescription is for a schedule II opioid drug., 180, cm, 09/26/21 10:4... Start Date: 10/12/21 Status: Ordered losartan 100 mg oral tablet 1 tablet, By Mouth, Daily, # 30 tablet, 5 Refills, Maintenance, 10/19/21 9:10:00 EDT, [facility]/pharmacy #[id number], 180, cm, 09/26/21 10:49:00 EDT, Height, 77, kg, 04/20/21 15:47:00 EST, Dry Weight Start Date: 10/19/21 Status: Ordered magnesium oxide 400 mg oral tablet 1 tablet, By Mouth, Daily, # 30 tablet, 6 Refills, Maintenance, 10/19/21 9:10:00 EDT, [facility]/pharmacy #1230, 180, cm, 09/26/21 10:49:00 EDT, Height, 77, kg, 04/20/21 15:47:00 EST, Dry Weight Start Date: 10/19/21 Stop Date: 10/19/21 Status: Ordered Metoprolol Succinate ER 50 mg oral tablet, extended release 1 tablet, By Mouth, Daily, INSTR:DO NOT CRUSH OR CHEW, # 30 tablet, 5 Refills, 10/19/21 9:10:00 EDT, [facility]/pharmacy #[id number], 180, cm, 09/26/21 10:49:00 EDT, Height, 77, kg, 04/20/21 15:47:00 EST, Dry Weight Start Date: 10/19/21 Status: Ordered MiraLax oral powder for reconstitution = 17 Gm, By Mouth, 2 times a day, dissolve in water before taking, # 527 Gm, 11 Refills, Maintenance, 10/19/21 9:10:00 EDT, REC Powder, [facility]/pharmacy #[id number], Partial fill upon patient request if the prescription is for a schedule II opioid drug., 17 Gm... Start Date: 10/19/21 Status: Ordered montelukast 10 mg oral tablet 1, tablet, By Mouth, Daily at bedtime, # 30 tablet, Refills 5, Tot. Refills 5, 10/19/21 9:10:00 EDT, Route to Pharmacy Electronically, [facility]/pharmacy #[id number], 180, cm, 09/26/21 10:49:00 EDT, Height, 77, kg, 04/20/21 15:47:00 EST, Dry Weight Start Date: 10/19/21 Status: Ordered omeprazole 20 mg oral delayed release tablet 1 tablet = 20 mg, By Mouth, Daily, # 30 tablet, 11 Refills, Maintenance, 07/10/22 15:48:00 EDT, CR Tablet, [facility]/pharmacy #[id number], Partial fill upon patient request if the prescription is for a schedule II opioid drug., 180, cm, 09/26/21 10:49:00 EDT, Hei... Start Date: 07/10/22 Stop Date: 07/05/23 Status: Ordered pravastatin 40 mg oral tablet 1 tablet = 40 mg, By Mouth, Daily, # 90 tablet, 1 Refills, Maintenance, 10/19/21 9:10:00 EDT, Tablet, [facility]/pharmacy #1230, 180, cm, 09/26/21 10:49:00 EDT, Height, 77, kg, 04/20/21 15:47:00 EST, Dry Weight Start Date: 10/19/21 Status: Ordered ProAir HFA 90 mcg/inh inhalation aerosol with adapter 2, puffs, Inhalation, Every 6 hours, PRN, # 8.5 Gm, Refills 6, Tot. Refills 6, 10/19/21 9:10:00 EDT, Route to Pharmacy Electronically, [id number], [facility]/pharmacy #1230, 180, cm, 09/26/21 10:49:00 EDT, Height, 77, kg, 04/20/21 1... Start Date: 10/19/21 Status: Ordered riboflavin 400 mg oral capsule 1 capsule = 400 mg, By Mouth, Daily, # 30 capsule, 5 Refills, Maintenance, 10/19/21 9:10:00 EDT, [facility]/pharmacy #[id number], Partial fill upon patient request if the prescription is for a schedule II opioid drug., 180, cm, 09/26/21 10:49:00 EDT, Height, 77, k... Start Date: 10/19/21 Status: Ordered Spiriva Respimat 1.25 mcg/inh inhalation aerosol 2 puffs, Inhalation, Daily, # 4 Gm, 5 Refills, 10/19/21 9:10:00 EDT, [facility]/pharmacy #1230, 180, cm, 09/26/21 10:49:00 EDT, Height, 77, kg, 04/20/21 15:47:00 EST, Dry Weight Start Date: 10/19/21 Status: Ordered Symbicort 160mcg/4.5mcg Inhaler 2, puffs, Inhalation, 2 times a day, # 10.2 Gm, Refills 10, Tot. Refills 10, 10/19/21 9:10:00 EDT, Route to Pharmacy Electronically, [id number], [facility]/pharmacy #1230, 180, cm,09/26/21 10:49:00 EDT, Height, 77, kg, 04/20/21 15:... Start Date: 10/19/21 Status: Ordered tamsulosin 0.4 mg oral capsule 1, capsule, By Mouth, Daily, # 30 capsule, Refills 4, Tot. Refills 4, Maintenance, 10/19/21 9:10:00EDT, [facility], 180, cm, 09/26/21 10:49:00 EDT, Height, 77, kg, 04/20/21 15:47:00 EST, Dry Weight Start Date: 10/19/21 Status: Ordered traZODone 50 mg oral tablet 100 mg, 2, tablet, By Mouth, Daily at bedtime, # 60 tablet, Refills 5, Tot. Refills 5, Maintenance,10/19/21 9:10:00 EDT, Route to Pharmacy Electronically, [facility]/pharmacy #1230, 180, cm, 09/26/21 10:49:00 EDT, Height, 77, kg, 04/20/21 15:47:00 EST, Dry... Start Date: 10/19/21 Status: Ordered venlafaxine 37.5 mg oral capsule, extended release 37.5 mg, 1, capsule, By Mouth, Daily, # 30 capsule, Refills 1, Tot. Refills 1, Maintenance, 10/19/21 9:10:00 EDT, [id number], Partial fill upon patient request if [...]
--- OUTSIDE RECORDS SUMMARY | 2022-09-19 20:55 | XMS_ITS | Continuity of Care Document ---
Author Name Unknown Organization [facility] Trevor lt Address [address] [place] [address]- Care Team Providers Care Nail Polish Brush Machine Feeder Name Role Phone Mike Tristan MD Primary Care Physician Encounter [facility] Date(s): 12/04/19 - 01/03/20 [facility] [address] [place] [id number]- [facility] Allergies, Adverse Reactions, Alerts Substance [...] 12:49:00 EDT, Aerosol, Route to Pharmacy Electronically, NCPDP_[id number], [facility], 174, cm, 10/01/19 13:58:00 EDT, Height, 57, kg, 03/19... Start Date: 11/17/19 Status: Ordered amLODIPine 5 mg oral tablet 5 mg, 1, tablet, By Mouth, Daily, # 90 tablet, Refills 3, Tot. Refills 3, Soft Stop, 02/10/19 13:40:35 EDT, Route to Pharmacy Electronically, [facility]_ID-[id number], [facility] - [address] [place] [address] Start Date: 02/10/19 Stop Date: 06/10/19 Status: Ordered aspirin 81 mg oral tablet 1 tablet = 81 mg, By Mouth, Daily, PER DR TRISTAN, # 30 tablet, 5 Refills, Maintenance, 10/13/19 13:42:00 EDT, Tablet, [facility], 174, cm, 10/01/19 13:58:00 EDT, Height, 57, kg, 03/19/19 14:07:00 EST, Dry Weight Start Date: 10/13/19 Status: Ordered Azithromycin 5 Day Dose Pack 250 mg oral tablet 1 pack/packet, By Mouth, Once, # 6 tablet, 0 Refills, Soft Stop, 12/19/19 14:29:00 EDT, Tablet, [facility], 174, cm, 10/01/19 13:58:00 EDT, Height, 57, kg, 03/19/19 14:07:00 EST, Dry Weight Start Date: 12/19/19 Status: Ordered Combivent Respimat 20 mcg-100 mcg/inh inhalation aerosol 1 puffs, Inhalation, 4 times a day, PRN Wheezing/Shortness of Breath, # 1 each, 0 Refills, Maintenance, 06/12/19 8:06:00 EST, Aerosol, [facility], 1 puffs Inhalation 4 times a [...] Maintenance, 10/12/2012:42:00 EDT, Route to Pharmacy Electronically, [facility], 174, cm, 10/01/19 13:58:00 EDT, Height, [...] 10/14/19 8:46:00 EDT, Route to Pharmacy Electronically, [facility], 174, cm, 10/01/19 13:58:00 EDT, Height, [...] 10/13/19 13:42:00 EDT, Route to Pharmacy Electronically, [facility], 174, cm, 10/01/19 13:58:00 EDT, Height, 57, kg, 12... Start Date: 10/13/19 Status: Ordered Spiriva HandiHaler 18 mcg inhalation capsule 1 capsule = 18 mcg, Inhalation, Daily, use two inhalations of one capsule for each dose, # 30 capsule, 6 Refills, Maintenance, 07/10/19 14:54:00 EDT, [facility], 174, cm, 05/26/19 14:06:00 EST, Height, 57, kg, 03/19/19 14:07:00 EST, Dry Weight Start Date: 07/10/19 Stop Date: 02/05/20 Status: Ordered traZODone 50 mg oral tablet 100 mg, 2, tablet, By Mouth, Daily at bedtime, # 60 tablet, Refills 2, Tot. Refills 2, Maintenance,10/14/19 8:46:00 EDT, Route to Pharmacy Electronically, [facility], 174, cm, 10/01/19 13:58:00 EDT, Height, 57, kg, 03/19/19 14:07:00 EST, .. Start Date: 10/14/19 Status: Ordered Tylenol Extra [...] 5 Refills, Maintenance, 07/10/19 14:54:00 EDT, Tablet, [facility], 174, cm, 05/26/19 14:06:00 EST, Height, [...]
--- OUTSIDE RECORDS SUMMARY | 2022-09-19 20:55 | XMS_ITS | Continuity of Care Document ---
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 Name Role Phone Mike Kruse MD Primary Care Physician Encounter [facility] [place] [facility] Date(s): 02/17/22 - 02/22/[address] [id number] Discharge Disposition: A-D/C Home Attending Physician: Nati Hopper MD Admitting Physician: Nati Hopper MD Referring Physician: Not on Staff, Referring MD Allergies, Adverse Reactions, Alerts Substance Reaction Severity Status lisinopril Atenolol Trisha norvegensis Active cloNIDine Active Immunizations Given and Recorded Vaccine Date Status Refusal Reason [id number] 12y+ bivalent booster vax 1 01/20/22 Given influenza virus vaccine, inactivated 01/20/22 Give n influenza virus vaccine, inactivated 04/21/21 Give n influenza virus vaccine, inactivated 01/08/20 Give n influenza virus vaccine, inactivated 11/15/18 Mohan rded influenza virus vaccine, inactivated 12/05/17 Mohan rded influenza virus vaccine, inactivated 2, 3 11/21/16 Recorded influenza virus vaccine, inactivated 11/20/16 Mhoan rded influenza virus vaccine, inactivated 4 01/26/16 [...] tetanus/diphtheria/pertussis, acel(Tdap) 04/01/09 Recorded 1Result Comment: [facility] [id number] 2Location History: [facility] 3Result Comment: [11/22/2016] [facility] 4Result Comment: [03/20/2016] [facility] Medications acetaminophen 325 mg oral tablet 650 mg, 2, tablet, By Mouth, Every 4 hours, PRN, # 30 tablet, Refills 0, Tot. Refills 0, Maintenance, Pain , Mild, 02/21/22 15:17:00 EST, Route to Pharmacy Electronically, [facility], Partial fill upon patient request if [...] Refills, Maintenance, 02/09/22 12:58:00 EDT, [id number], 163, cm, 02/07/22 18:18:00 EDT, Height, 60, [...] each, 5 Refills, Maintenance, 12/19/21 15:27:00 EDT, [facility], 30, USE 1 SPRAY IN EACH [...] tablet, 4 Refills, Maintenance, 12/23/21 13:25:00 EDT, [facility], 162, cm, 12/16/21 14:39:00 EDT, Height, [...] release 50 mg, XL Tablet, By Mouth, 02/22/22 9:00:00 EST Start Date: 02/22/22 Stop Date: 02/22/22 Status: Completed Metoprolol Succinate ER 50 mg [...] 02/21/22 15:17:00 EST, Route to Pharmacy Electronically, [facility], Partial fill upon patient request if the prescription... Start Date: 02/21/22 Status: Ordered oxyCODONE 5 mg oral tablet 5 mg, Tablet, By Mouth, Every 4 hours, PRN for Pain , Severe, Routine, 02/17/22 1:30:00 EDT Start Date: 02/17/22 Stop Date: 02/23/22 Status: Discontinued Plavix 75 mg oral tablet 75 mg, 1, tablet, By Mouth, Daily, # 90 tablet, Refills 1, Tot. Refills 1, Maintenance, 11/18/21 16:53:00 EDT, [id number] Partial fill upon patient request if the prescription is for a schedule II opioid drug... Start Date: 11/18/21 Status: Ordered pravastatin 40 mg oral tablet See Instructions, TAKE 1 TABLET BY MOUTH EVERY DAY, # 30 tablet, 5 Refills, Maintenance, 12/19/21 15:29:00 EDT, [facility], 162, cm, 12/16/21 14:39:00 EDT, Height, 59.5, kg, 12/16/21 0:28:00 EDT, Dry Weight Start Date: 12/19/21 Status: Ordered ProAir HFA 90 mcg/inh inhalation aerosol with adapter 2, puffs, Inhalation, Every 6 hours, PRN, # 8.5 Gm, Refills 1, Tot. Refills 1, 12/13/21 12:40:00 EDT, Route to Pharmacy Electronically, [id number], [facility] 3,162, cm, 12/13/21 4:46:00 EDT, Height, 60.3, kg, 08... Start Date: 12/13/21 Status: Ordered riboflavin 400 mg oral capsule 1 capsule = 400 mg, By Mouth, Daily, # 30 capsule, 5 Refills, Maintenance, 10/19/21 9:10:00 EDT, [id number] Partial fill upon patient request if the prescription is for a schedule II opioid drug., 180, cm, 09/26/21 10:49:00 EDT, Height, 77, k... Start Date: 10/19/21 Status: Ordered SEROquel 25 mg oral tablet 25 mg, 1, tablet, By Mouth, Daily at bedtime, # 30 tablet, Refills 5, Tot. Refills 5, Maintenance, 10/28/21 14:23:00 EDT, Route to Pharmacy Electronically, [facility][id number], 165, cm, [...] 10/19/21 9:10:00 EDT, Route to Pharmacy Electronically, [id number], [facility] #[id number], 180, cm,09/26/21 10:49:00 EDT, Height, 77, kg, 04/20/21 15:... Start Date: 10/19/21 Status: Ordered tamsulosin 0.4 mg oral capsule 1, capsule, By Mouth, Daily, # 30 capsule, Refills 4, Tot. Refills 4, Maintenance, 10/19/21 9:10:00EDT, Route to Pharmacy Electronically, [facility]/pharmacy #[id number], 180, cm, 09/26/21 10:49:00 EDT, Height, 77, kg, 04/20/21 15:47:00 EST, Dry Weight Start Date: 10/19/21 Status: Ordered venlafaxine 37.5 mg oral capsule, extended release 37.5 mg, 1, capsule, By Mouth, Daily, # 30 capsule, Refills 1, Tot. Refills 1, Maintenance, 02/09/22 12:57:00 EDT, [facility] [...] Exam Date Time Procedure Performing Provider Status 02/16/22 9:[address] Abd/Pelvis W/ IV Contrast Only Lisette Tracey; Kody (Verified) Notes: (CT Abd/Pelvis W/ IV Contrast Only) Reason For Exam: L inguinal hernia w/ abdominal pain;Other: RESULT: CT Abd/Pelvis W/ IV Contrast Only CT Abd/Pelvis W/ IV Contrast Only Hx of Present Illness: Pt reports having severe pain L inguinal area over last 4 days. Patient reports intermittent swelling that improved and now is back and severe.; Reason: Other:; L inguinal hernia w abdominal pain; Clinical Question(s): Obstruction; Order Comment: TECHNIQUE: Spiral CT through the abdomen and pelvis with IV contrast formatted in 3 planes. 75 cc of Omnipaque 300 was administered intravenously. This study was performed without oral contrast. Weight-based protocol using automatic tube modulation was used to optimize exposure parameters. CTDIvol Body: 6.56 mGy, DLP Body: 314 mGy*cm. COMPARISON: None. FINDINGS: Claims Consultant View Findings, Lines and Tubes: None. Visualized Chest: Moderate centrilobular emphysematous changes. No pleural effusion. The heart is normal in size. No pericardial effusion. Small hiatal hernia. This is likely significant gastroesophageal reflux or dysmotility. Diaphragm: Normal. Liver: Normal. Low-attenuation area within the medial segment of the left hepatic lobe likely representing normal variant. Gallbladder: No CT evidence of gallbladder pathology. Bile ducts: No biliary ductal dilation. Spleen: Normal. Pancreas: Normal. Adrenal glands: Normal. Kidneys and ureters: No hydronephrosis, stones, or suspicious masses. Bilateral renal cysts. Bladder: Normal. Reproductive organs: Prostate is enlarged measuring 5.6 cm. Stomach, small bowel, and large bowel: A few scattered diverticula within the descending and sigmoid colon without evidence of diverticulitis.. Appendix: Normal. Peritoneum and retroperitoneum: No ascites or pneumoperitoneum. No omental or mesenteric lesions. Lymph nodes: No enlarged lymph nodes. Blood vessels: Normal. No aneurysm. No evidence of venous thrombosis. Abdominal and pelvic wall: Small bilateral inguinal hernias containing omental fat. There is a small to moderate left femoral hernia containing omental fat with stranding. Bones: No acute abnormality. IMPRESSION: Small to moderate left femoral hernia containing omental fat which is slightly inflamed. Enlarged prostate. Recommend correlation patient's PSA level. A critical result message (Document Only) has been communicated via the [employer] system on 02/16/2022 9:38 PM, Message ID [id number]. WSN: [id number] Ordering Physician: Joe Casey Dictated By: Mamadou Dubois MD Dictated Date/Time: 02/16/22 9:38 pm Reviewed By: Mamadou Dubois MD Signed By: Mamadou Dubois MD Signed Date/Time: 02/16/22 9:38 pm Transcribed By: JAX Transcribed Date/Time: 02/16/22 9:25 pm Vital Signs Most recent to oldest [Reference Range]: 1 2 3 Height 163 cm (02/22/22 1:44 PM) 163 cm (02/22/22 12:52 PM) 163 cm (02/22/22 7:07 AM) Weight 60 kg (02/20/22 9:22 PM) Oxygen Saturation [94-100 %] 95 % (02/22/22 1:44 PM) 98 % (02/22/22 12:52 PM) 92 % *L* (02/22/22 7:07 AM) Pulse Rate [55-90 bpm] 85 bpm (02/22/22 2:09 PM) 85 bpm (02/22/22 1:44 PM) 71 bpm (02/22/22 12:52 PM) Body Mass Index [18.5-24.99 kg/m2] 22.58 kg/m2 (02/20/22:22 PM) Blood Pressure [90-138/55-84 mm Hg] 129/79mm Hg (02/22/22 2:09 PM) 129/79mm Hg (02/22/22 1:44 PM) 137/68mm Hg (02/22/22 12:52 PM) Respiratory Rate [16-30 br/min] 18 br/min (02/22/22 1:44 PM) 19 br/min (02/22/22 12:52 PM) 18 br/min (02/22/22 10:08 AM) Temperature [96.8-100.4 DegF] 98.0 DegF (02/22/22 1:44 PM) 97.5 DegF (02/22/22 12:52 PM) 98.2 DegF (02/22/22 7:07 AM) Liters per Minute 2 L/min (02/22/22 3:48 AM) 2 L/min (02/21/22 4:24 PM) 2 L/min (02/21/22 11:41 AM) Mode of Delivery (Oxygen) Room air (02/22/22 1:44 PM) Room air (02/22/22 12:52 PM) Room air (02/22/22 7:07 AM) Blood pressure sites Arm, right (02/22/22 1:44 PM) Arm, left (02/22/22 3:48 AM) Arm, left (02/21/22 11:24 PM) Temperature Route Oral (02/22/22 1:44 PM) Oral (02/22/22 12:52 PM) Oral (02/22/22 7:07 AM) Social History Social History Type Response [...] Unknown 03/13/26 Unknown Unknown Active Un known Hospital Progress note * Maryam Valenzuela RN: SIGN, MODIFY, PERFORM, SIGN, VERIFY Event Display: Progress Note Hospital Authored Date: [id number] Patient: GERBER COOK Age: 61 years Sex: Male : 1960 Associated Diagnoses: None Author: Maryam Valenzuela RN Findings Problem Related to Alteration in Gastrointestinal : Alteration in Gastrointestinal Func/new 02/22/2022 10:00 EST Alteration in GI status Related to Other: Hernia repair Goals & Outcomes, Gastrointestinal Establish a regular pattern of elimination for pt, Nutritional intake is adequate for metabolic needs, Pt will achieve normal/improved fluid balance, Pt will have a bowel movement prior to discharge, Pt will maintain adequate GI function appropriate for pt, Ptwill maintain normal elimination patterns, Pt will resume/maintain adequate hemodynamic status, Pt w ill tolerate age appropriate diet prior to discharge Interventions, Gastrointestinal Assess/monitor abdomen for distention, tenderness, Assess/monitor abdominal girth & bowel function, Assess/monitor bowel pattern, bowel sounds, flatus, Assess/monitor number of bowel movements, Assess/monitor color, quantity, quality, consistency of stoo, Assess/monitor pt for nausea, vomiting, Assess/monitor effects of re-hydration, Assess/monitor intake &output, Assess if pt tolerating diet, DVT prophylaxis as ordered, Elevate HOB to facilitate lung expansion, prevent aspiration, Taking PO: Encourage/monitor intake & swallowing ability, Teach Pt/caregiver diet & give copy of dietary instructions, Teach Pt/caregiver on bowel elimination inter ventions, Teach Pt/caregiver re: importance of bowel regime, Teach Pt/caregiver re: nutritional intake & dietary restrict, Teach/encourage deep breath & cough exercises, Teach/encourage use of incentive spirometer, Incision care as ordered, Teach pt to splint incision when coughing BH Goals/Interventions, Gastrointestinal Yes Gastrointestinal, Problem Start 02/17/2022 16:06 Reviewed plan with, Gastrointestinal Patient Patient Progression, Gastrointestinal Pt progressing according to plan . Nursing Data Vital Signs : VITAL SIGNS SECTION 02/22/2022 7:07 EST Temperature 98.2 DegF Temperature Route Oral Pulse Rate 70 bpm Respiratory Rate 19 br/min Systolic Blood Pressure 100 mm Hg Diastolic Blood Pressure 53 mm Hg L Mean Arterial Pressure 69 mm Hg Pulse Pressure 47 mm Hg Oxygen Saturation 92 % L Mode of Delivery (Oxygen) Room air . Evaluation 61 yo male patient s/p Open left femoral hernia repair with mesh PoD2; A&Ox3. Lungs CTA but dim, IS use encouraged reaching 1250; denies SOB/CP. +BSx4, abd soft but tender x4 upon palpation; LBM 11, passing flatus. LLQ incision closed with steri strips; no drainage or signs of infection noted. Tolerating regular diet; denies N/V. Voiding adequate amounts CYU; OOB standby assist. Patient endo rsing pain 10/23, 5mg oxycodone q4 as ordered. Anticipated discharge today. Patient resting in bed, no complaints at this time. Call valentin within reach, bed in lowest locked position. Will continue to monitor safety/comfort. . * Maryam Valenzuela RN: PERFORM Event Display: Progress Note Hospital Authored Date: Patient being transferred to discharge unit; aware and agreeable to transfer. Report given to S3 RNJulie, all questions answered. Patient down to S3 at 1310. * Eitan Campbell RN: PERFORM, SIGN, VERIFY, MODIFY, SIGN Event Display: Progress Note Hospital Authored Date: Patient: GERBER COOK Age: 61 years Sex: Male : 1960 Associated Diagnoses: None Author: Eitan Campbell RN Findings Problem Related to Alteration in Gastrointestinal : Alteration in Gastrointestinal Func/new 02/21/2022 19:11 EST Alteration in GI status Related to Other: Hernia repair Goals & Outcomes, Gastrointestinal Establish a regular pattern of elimination for pt, Nutritional intake is adequate for metabolic needs, Pt will achieve normal/improved fluid balance, Pt will have a bowel movement prior to discharge, Pt will maintain adequate GI function appropriate for pt, Ptwill maintain normal elimination patterns, Pt will resume/maintain adequate hemodynamic status, Pt w ill tolerate age appropriate diet prior to discharge Interventions, Gastrointestinal Assess/monitor abdomen for distention, tenderness, Assess/monitor abdominal girth & bowel function, Assess/monitor bowel pattern, bowel sounds, flatus, Assess/monitor number of bowel movements, Assess/monitor color, quantity, quality, consistency of stoo, Assess/monitor pt for nausea, vomiting, Assess/monitor effects of re-hydration, Assess/monitor intake &output, Assess if pt tolerating diet, Collaborate/Consult with Soaping Machine Back Tender; review recommendations, DVT prophylaxis as ordered, Elevate HOB to facilitate lung expansion, prevent aspiration, Establish toileting schedule for patient, Taking PO: Encourage/monitor intake & swallowing ability, Enteral nutrition;check residuals; HOB >30 degrees, Nasogastric to LWS as ordered;care per Standards of Practice, Provide info on community resources for education, support, Provide/encourage oral care ifNPO, Teach Pt/caregiver diet & give copy of dietary instructions, Teach Pt/caregiver on bowel elimination interventions, Teach Pt/caregiver re: importance of bowel regime, Teach Pt/caregiver re: n utritional intake & dietary restrict, Teach/encourage deep breath & cough exercises, Teach/encourage use of incentive spirometer Goals/Interventions, Gastrointestinal Yes Gastrointestinal, Problem Start 02/17/2022 16:06 Reviewed plan with, Gastrointestinal Patient Patient Progression, Gastrointestinal Pt progressing according to plan . Nursing Data Cardiac Data. : Cardiac Data. 02/21/2022 21:25 EST Posttibial Pulse, Left Normal Posttibial Pulse, Right Normal Dorsalis Pedis Pulse, Left Normal Dorsalis Pedis Pulse, Right Normal Cardiovascular WNL except . Gastrointestinal Data. : Gastrointestinal Data. 02/21/2022 21:25 EST Abdomen Soft, Tender LLQ Tenderness At rest, To palpation LUQ Tenderness At rest, To palpation Bowel Sounds LUQ Present Bowel Sounds RUQ Present Bowel Sounds LLQ Present Bowel Sounds RLQ Present GI WNL except Normal Bowel Pattern Every other day . Genitourinary Data. : Genitourinary Data. 02/21/2022 21:25 EST Urine Color Yellow Urine Description Clear WNL except . IV Lines. : IV Lines. 02/21/2022 21:25 EST Right Antecubital 20 gauge Peripheral IV Activity: Assess Peripheral IV Assess Compare Touch: A/C/T Done, no complications Peripheral IV Site Assessment: Clean, dry and intact, Flushes Well Peripheral IV Site Drainage: None Peripheral IV Dressing: Clean, dry and intact Peripheral IV Intervention: Flushed . Respiratory/Pulmonary Data. 02/21/2022 21:25 EST Patient participation Cooperative Incentive Spirometry Volume Achieved 1,500 mL Patient effort Good effort Left Upper Lobe Breath Sounds Diminished Right Upper Lobe Breath Sounds Diminished Right Middle Lobe Breath Sounds Diminished Left Lower Lobe Breath Sounds Diminished Right Lower Lobe Breath Sounds Diminished Respiratory Treatment(s) Cough and deep breathe, Incentive spirometry Respiratory WNL except . Narrative/Incidental Patient had hernia repair LLQ of abdomen. Alert and orientedx4. LS Diminished, denies SOB, using the IS with results of 1500. Patient on 2LNC. Pain is 7/10 treated with Oxy 5mg Q4 and tylenol. +PP, +CMS, +DP flex. +BSX4, S/tender, last BM was on 02-20-2022. Voiding CYU in the BR/urinal. LLQ of abdomen has guaze covered with tegaderm that is C/D/I. Lovenox for DVT prophylaxis. Cboots in use. Patient was asked to walk in the hallway at 2230, stated he had walked in the room and didn't want to walkin the hallway at this time, my pain is comfortable right now. Call valentin within reach. Continue to monitor pain and dressing. . * Brit Toscano RN: MODIFY, SIGN, VERIFY, PERFORM, SIGN Event Display: Progress Note Hospital Authored Date: [id number] Patient: GERBER COOK Age: 61 years Sex: Male : 1960 Associated Diagnoses: None Author: Brit Toscano RN Findings Problem Related to Alteration in Gastrointestinal : Alteration in Gastrointestinal Func/new 02/21/2022 8:00 EST Alteration in GI status Related to Other: Hernia repair Goals & Outcomes, Gastrointestinal Establish a regular pattern of elimination for pt, Nutritional intake is adequate for metabolic needs, Pt will achieve normal/improved fluid balance, Pt will have a bowel movement prior to discharge, Pt will maintain adequate GI function appropriate for pt, Ptwill maintain normal elimination patterns, Pt will resume/maintain adequate hemodynamic status, Pt w ill tolerate age appropriate diet prior to discharge Interventions, Gastrointestinal Assess/monitor abdomen for distention, tenderness, Assess/monitor abdominal girth & bowel function, Assess/monitor bowel pattern, bowel sounds, flatus, Assess/monitor number of bowel movements, Assess/monitor color, quantity, quality, consistency of stoo, Assess/monitor pt for nausea, vomiting, Assess/monitor effects of re-hydration, Assess/monitor intake &output, Assess if pt tolerating diet, Collaborate/Consult with Soaping Machine Back Tender; review recommendations, Establish toileting schedule for patient, Provide info on community resources for education, support,Teach Pt/caregiver on bowel elimination interventions, Teach Pt/caregiver re: importance of bowel re gime, Teach Pt/caregiver re: nutritional intake & dietary restrict, Teach/encourage deep breath& cough exercises, Teach/encourage use of incentive spirometer BH Goals/Interventions, Gastrointestinal Yes Gastrointestinal, Problem Start 02/17/2022 16:06 Reviewed plan with, Gastrointestinal Patient Patient Progression, Gastrointestinal Pt progressing according to plan . Narrative/Incidental 0600 assumed care of patient, A&OX3, Abdominal pain 10, Abdominal SI and tegaderm intact. Bladder scan this morning, retaining following return from PACU overnight. +Pulses, Skin dusky, warm and dry. Meds taken whole with water. Denies nausea or reflux, last bm 02/20, +BSX4, +appetite, no swallow issues. Indep steady OOB ambulating without assist this morning. Pain increased to /10 and patient having difficulty ambulating without a RW this afternoon. Hourly rounding and call valentin at bedside. Hourly rounding and call valentin at bedside. . Note * Omaira Castaneda RN: PERFORM Event Display: Discharge/Transfer Note Hospital Authored Date: [id number] Nursing Discharge Note Entered On: 02/22/2022 15:09 EST Performed On: 02/22/2022 15:09 EST by Omaira Castaneda RN Nursing Discharge Note 2 Discharge Time : 02/22/2022 15:08 EST Discharge Level of Care at Discharge : Home/Senior Care/Foster Care Patient Left Unit Via : Wheelchair Patient Accompanied Off Unit with : Responsible adult DC Instructions Provided & Signed by Pt : Yes Patient Understands D/C Instructions : Yes Patient Instructions Discharge Signed : Yes Did Pt have Specialty Bed or Wound Vac : No Omaira Castaneda RN - 02/22/2022 15:09 EST * Omaira Castaneda RN: PERFORM Event Display: Patient Education/Instruction Authored Date: [id number] Inpatient Adult Discharge Instructions [place] [id number] Name: GERBER COOK : 1960 Visit: 02/17/2022 00:58:00 Current Date: 02/22/2022 14:17 Account: [id number] Inpatient Adult Discharge Instructions We would like to thank you for allowing us to assist you with your healthcare needs. The following includes patient education materials and information regarding your injury/illness. Our entire staffstrives to provide an excellent experience for our patients and their families. PLEASE ENSURE YOU FOLLOW-UP PER THE INSTRUCTIONS BELOW! ?? YOUR OPINION IS IMPORTANT TO US! Please complete the survey you may receive by mail or email. Your feedback will be used to make improvements to the healthcare experiences of our patients and their families. Surveys are administered by [employer] ?? If further treatment with your primary care physician or another doctor is recommended, it is important for you to keep the appointment. Call your primary care physician or return to the Emergency Department immediately if your condition worsens, fails to improve, or new symptoms develop. If you need to find a doctor, you can call [facility] for a referral at [phone] or toll free at [phone]) or log in to [email or web address].. ?? You can view and manage your care through the patient portal or by using a health care leana of your choosing. [employer] is a website that allows you to securely view your medical information including your hospital discharge summary, office visit summaries, medications and follow-up visits. You can also request appointments, renew medications, and request access to your medical information using a health care leana of your choosing, or just ask a question. You can enroll at [email or web address] or register during your next office visit. You have been discharged from [facility], Patient Care Unit: S3. If you have any questions regarding these instructions after you leave, please call us and we will be happy to assist you. [facility] Your Care Team Attending Physician Ward BERNABE, Nati Davis Consulting Providers Rafael BERNABE, Anoop Valdes Discharging Providers Catarina Hill NP Reason for Admission left open femoral hernia repair Your Diagnosis Femoral hernia of left side Tests Performed Below is a partial list of the tests performed during your hospitalization. You may have had other tests and procedures not included in this list. Please discuss all test results with your provider. BUN CBC w/ Differential Comprehensive Metabolic Panel COVID-19 (2019 Novel Coronavirus) PCR COVID-19 (Novel Coronavirus), Rapid PCR Creatinine HOLD BLUE TUBE HOLD GEL TUBE HOLD GREEN TUBE HOLD LAVENDER TUBE Ionized Calcium Lactate Level Lactic Acid Level Lipase Lytes Magnesium Level Phosphorus Level Urinalysis w/hold for Urine Culture CT Abd/Pelvis W/ IV Contrast Only Primary Care Provider Aixa BERNABE, Mike Bennett Advance Directive Health Care Proxy on File Yes - Health Care Proxy No qualifying data available. Discharge Vitals Temperature: 98 DegF Height: 163 cm Pulse Rate: 85 bpm Weight: 60 kg Respiratory Rate: 18 br/min Body Mass Index: 22.58 kg/m2 Systolic Blood Pressure: 129 mm Hg Body surface area: 1.65 Diastolic Blood Pressure: 79 mm Hg ?? Oxygen Saturation: 95 % ?? Studies Pending All tests and labs ordered during this hospital stay have been completed unless listed below. Please discuss all pending results with your provider listed above in these instructions. ?? No incomplete studies found What to do next Instructions From Your Doctor Special Instructions ?? If you develop fever, chills, increased pain, nausea, vomiting, bleeding, or increased redness or pus around the wound please call the surgery office at . Please take medications as prescribed and do not drive while on narcotic medications. ?? If you have any questions, please call the surgery office at . ?? Please call your Primary Care Provider within 1 week for post hospital follow up and review of yourmedications. ? Activity Instructions ?? -No heavy lifting >10 lbs -Increase activity as tolerated -Encourage coughing and deep breathing, use of incentive spirometer -No tub baths until incision(s) has/have healed -May shower on postop day #2 -No driving until off narcotics and cleared by Surgery ? When to call your healthcare provider ?? Call your healthcare provider if you have any of the below: ? Pain, redness, swelling, or bleeding that gets worse ? Smelly fluid from the incision, or changes in color of the drainage from the incision ? Fever of 100.4??F ( 38??C) or higher, or as advised ? Shaking or chills ? Vomiting or nausea that doesn't go away ? Numbness, coldness, or tingling around the incision ? Changes in skin color around the incision ? Opening of the wound ? Stitches that pull apart ? [place] that fall out Discharge Orders Scheduled Follow-Up Appointments Sunday 10:00 AM EST ?? With: Srini Nevarez MD Where: [facility] [address] [place] [address]- You Need to Schedule the Following Appointments Follow Up with??Srini Nevarez MD When??03/08/2022 10:00 AM EST Why: Please call to schedule follow up with Dr. Nevarez Where: [address] [place] [address] Drive [address] [facility] [place] [address]- Discharge Medications GERBER COOK :1960 Visit Date:02/17/2022 Medications: Please continue your medications until treatment is completed or stopped by your provider. Medications not listed below should be discontinued. Discuss any questions related to medications with your provider. What How Much When Instructions Next Dose New Acetaminophen (acetaminophen 325 mg oral tablet) 2 tab(s) Oral Every 4 hours as needed for Pain , Mild Pickup at [facility] 3 last dose received 02/22 at 2:14pm New Oxycodone (oxyCODONE 5 mg oral tablet) 1 tab(s) Oral Every 4 hours as needed for Pain , Severe Pickup at [facility] 3 as needed Unchanged Albuterol (albuterol 0.083% inhalation solution) 3 Milliliter Inhalation Every 6 hours as needed for for wheezing as needed Unchanged Albuterol (ProAir HFA 90 mcg/ inh inhalation aerosol with adapter) 2 puff(s) Inhalation Every 6 hours as needed for NEEDED FOR WHEEZING as needed Unchanged Amlodipine (amLODIPine 5 mg oral tablet) 1 tab(s) Oral Daily 02/22 Unchanged Aspirin (Aspirin Low Dose 81 mg oral delayed release tablet) 1 tab(s) Oral Daily 02/23 Unchanged Azithromycin (Zithromax 250 mg oral tablet) 1 pack/packet Oral Once per home regimen Unchanged Budesonide-Formoterol (Symbicort 160mcg/ 4.5mcg Inhaler) 2 puff(s) Inhalation Twice a day 02/22 Unchanged Cetirizine 10 Milligram Oral Daily 02/23 Unchanged Clopidogrel (Plavix 75 mg oral tablet) 1 tab(s) Oral Daily 02/23 Unchanged Fluticasone Nasal (fluticasone 50 mcg/ inh nasal spray) See instructions USE 1 SPRAY IN EACH NOSTRIL TWICE A DAY ?? 02/22 Unchanged fluticasone-vilanterol (Breo Ellipta 200 mcg-25 mcg/ inh inhalation powder) 1 puff(s) Inhalation Daily 02/23 Unchanged Guaifenesin (guaiFENesin 400 mg oral tablet) 1 tab(s) Oral 4 times a day as needed Unchanged Loratadine 10 Milligram Oral Daily 02/23 Unchanged Losartan (losartan 100 mg oral tablet) 1 tab(s) Oral Daily 02/22 Unchanged Magnesium Oxide (magnesium oxide 400 mg oral tablet) 1 tab(s) Oral Daily 02/23 Unchanged Metoprolol (Metoprolol Succinate ER 50 mg oral tablet, extended release) 1 tab(s) Oral Daily INSTR:DO NOT CRUSH OR CHEW ?? 02/23 Unchanged Montelukast (montelukast 10 mg oral tablet) See instructions TAKE 1 TABLET BY MOUTH EVERY DAY AT BEDTIME ?? 02/22 Unchanged Omeprazole (omeprazole 20 mg oral delayed release tablet) 1 tab(s) Oral Daily Duration: 30 Days 02/23 Unchanged Polyethylene Glycol 3350 (MiraLax oral powder for reconstitution) 17 gram Oral Twice a day dissolve in water before taking ?? 02/22 Unchanged Pravastatin (pravastatin 40 mg oral tablet) See instructions TAKE 1 TABLET BY MOUTH EVERY DAY ?? 02/22 Unchanged Quetiapine (SEROquel 25 mg oral tablet) 1 tab(s) Oral Daily at Bedtime 02/22 Unchanged Riboflavin (riboflavin 400 mg oral capsule) 1 capsule Oral Daily 02/23 Unchanged Tamsulosin (tamsulosin 0.4 mg oral capsule) 1 capsule Oral Daily 02/23 Unchanged Tiotropium (Spiriva Respimat 1.25 mcg/ inh inhalation aerosol) 2 puff(s) Inhalation Daily 02/23 Unchanged Venlafaxine (venlafaxine 37.5 mg oral capsule, extended release) 1 capsule Oral Daily 02/23 Pharmacy Information [facility] 3: [address], [place] [id number] [phone] Test Results Below is a partial list of the most recent Laboratory test results done prior to this discharge. You may have had other tests and procedures not included in this list. Please discuss all test resultswith your provider. BUN (02/21/2022) ???BUN - 15 mg/dL CBC w/ Differential (02/21/2022) ???WBC - 18.4 k/mm3???RBC - 3.62 m/mm3???Hgb - 11.2 Gm/dL???Hct - 34.4 %???MCV - 95.0 femtoliters???MCH - 30.9 pg???MCHC - 32.6 g/dL???Platelet Count - 293 k/mm3???RDW-SD - 46.1 femtoliters???MPV - 8.7 femtoliters???Nucleated RBC (Automated) - 0.0 #/100 WBC'S???Abs. NRBC - 0.0 k/mm3???Abs. Neut - 15.7 k/mm3???Abs. Lymph - 1.8 k/mm3???Abs. Carter - 0.7 k/mm3???Abs. Eo - 0.0 k/mm3???Abs. Baso - 0.0 k/mm3???Neut % - 85.3 %???Lymph % - 9.9 %???Carter % - 4.0 %???Eos % - 0.2 %???Baso % - 0.1 %???Imm Gran - 0.5 %???Abs. Imm Gran - 0.1 k/mm3 Comprehensive Metabolic Panel (02/16/2022) ???Sodium - 140 mmol/L???Potassium - 3.6 mmol/L???Chloride - 103 mmol/L???Bicarbonate Level - 26 mmol/L???Anion Gap - 11???Glucose Level - 96 mg/dL???BUN - 17 mg/dL???Creatinine-Blood - 0.9 mg/dL???Estimated GFR Creatinine - 93 ML/MIN/1.73 M2???Calcium - 9.6 mg/dL???Protein, Total - 6.0 Gm/dL???Albumin - 4.1 Gm/dL???AG Ratio - 2.2???Alkaline Phosphatase - 53 units/L???AST (SGOT) - 11 units/L???ALT (SGPT) - 10 units/L???Bilirubin, Total - 0.2 mg/dL COVID-19 (2019 Novel Coronavirus) PCR (02/20/2022) ???COVID-19 PCR Specimen Source - NASAL???COVID-19 PCR Result - NEGATIVE COVID-19 (Novel Coronavirus), Rapid PCR (02/17/2022) ???COVID-19 by RT-PCR - NEGATIVE Creatinine (02/21/2022) ???Creatinine-Blood - 0.9 mg/dL???Estimated GFR Creatinine - 97 ML/MIN/1.73 M2 HOLD BLUE TUBE (02/16/2022) ???Hold Blue Top - SPECIMEN DISCARDED AFTER 4 HOURS. HOLD GEL TUBE (02/16/2022) ???Hold Gel Top - SPECIMEN DISCARDED AFTER 1 WEEK HOLD GREEN TUBE (02/16/2022) ???Hold Green Top - SPECIMEN DISCARDED AFTER 1 WEEK HOLD LAVENDER TUBE (02/16/2022) ???Hold Lavender Top - SPECIMEN DISCARDED AFTER 24 HOURS. Ionized Calcium (02/21/2022) ???Calcium, Ionized pH Corrected - 1.19 mmol/L Lactate Level (02/17/2022) ???Lactate - 0.9 mmol/L Lactic Acid Level (02/16/2022) ???Lactate - 4.0 mmol/L Lipase (02/16/2022) ???Lipase - 43 units/L Lytes (02/21/2022) ???Sodium - 135 mmol/L???Potassium - 4.1 mmol/L???Chloride - 101 mmol/L???Bicarbonate Level - 25 mmol/L???Anion Gap - 9 Magnesium Level (02/21/2022) ???Magnesium - 1.7 mg/dL Phosphorus Level (02/21/2022) ???Phosphorus - 3.9 mg/dL Urinalysis w/hold for Urine Culture (02/17/2022) ???Appear/Color, Urine - YELLOW???Specific [place], Urine - 1.039???pH, Urine - 6.5???Albumin, Urine - NEGATIVE???Glucose, Urine - NEGATIVE???Ketones, Urine - NEGATIVE???Bilirubin, Urine - NEGATIVE???Hemoglobin, Urine - NEGATIVE???Nitrite, Urine - NEGATIVE???Leukocyte, Urine - NEGATIVE???Urobilinogen - NORMAL???WBC's, Urine - 1 /HPF???RBC's, Urine - 1 /HPF???Mucus - SLIGHT???Hold Urine Culture - T esting available 48 hours from time of collection. Allergies (NKA means No Known Allergies) cloNIDine lisinopril??(Atenolol, Trisha norvegensis) Problems Active Problems??(21) Allergic rhinitis due to pollen?? Anxiety?? Arthralgia of pelvis or thigh?? Benign prostatic hyperplasia?? Cerebrovascular disease?? Chronic pain in shoulder?? Constipation?? COPD, group D, by GOLD 2017 classification?? Erectile dysfunction?? Frequent urination at night?? Gastroesophageal reflux?? HTN (hypertension)?? Hypercholesterolemia?? Insomnia?? Internal hemorrhoids?? [place] reticularis?? Low backache?? Major depression in complete remission?? Pulmonary nodules?? PVD (peripheral vascular disease)?? Tobacco abuse?? Education Materials Below is the list of Educational Leaflet Providered with your Discharge Instructions. Oxycodone Oral Tablet 5 mg?? What Is a Hernia??? Valuables and Belongings I fully understand and agree that [facility] accepts no responsibility for all my personal property including clothing, toilet articles, radios, jewelry, dentures, hearing aids, rings, money, or any other property that is in my possession or is brought to me after admission. I understand certain valuables may be placed in a hospital safe for a short period of time. I understand that the hospital is not liable for loss or damage due to accident, fire, or other natural occurrence while said property is in the safe. I accept full responsibility for any personal property that I keep with me, and will not hold the hospital responsible in case of loss or disappearance. I acknowledge that i have been encouraged to send valuables and belongings home. ?? Review of Valuable and Belonging List: With patient Date for Pt to Sign Valuables/Belongings: 02/22/22 13:44:00 ?? Other Discharge Information ? Pulmonary Rehab Status?? Pulmonary Rehab Discharge Status?? Respiratory Rate: 18 br/min ? Common Emergency Awareness Tips IS IT A STROKE? Act FAST and Check for these signs: FACE Does the face look uneven? ARM Does one arm drift down? SPEECH Does their speech sound strange? TIME Call at any sign of stroke ?? Heart Attack Signs Chest discomfort: Most heart attacks involve discomfort in the center of the chest and lasts more than a few minutes, or goes away and comes back. It can feel like uncomfortable pressure, squeezing, fullness or pain. Discomfort in upper body: Symptoms can include pain or discomfort in one or both arms, back, neck, jaw or stomach. Shortness of breath: With or without discomfort. Other signs: Breaking out in a cold sweat, nausea, or lightheaded. Remember, MINUTES DO MATTER. If you experience any of these heart attack warning signs, call to get immediate medical attention! ?? Smoking can increase your chances of developing chronic health problems and can cause harmful effects to other family members in your house. If you smoke, you are strongly encouraged to quit. Please call [facility] [employer] [facility] at [phone] or [phone] ([phone]) or log in to [email or web address] for referrals to smoking cessation programs. ?? The National Suicide Prevention Hotline is available 06/11 if you or someone you know needs to find a reason to keep living. By calling 5-945-305-[employer] (7652) you'll be connected to a skilled, trained counselor at a crisis center in your area. INPATIENT DISCHARGE INSTRUCTIONS SIGNATURE PAGE GERBER COOK Location:[facility] Registration Date and Time:02/17/2022 00:58 EDT Primary Care Physician: Aixa BERNABE, Mike Bennett, I GERBER COOK, have received the above patient education materials/instructions and have verbalized understanding. If ambulance or transport services are being used I further acknowledge being givena choice of service. ?? If you need to contact me, please call me at this number: . Patient/Quail Farmer Name: Patient/Quail Farmer Signature: Relationship to Patient: Witness Name/Signature: Date: * Omaira Castaneda RN: PERFORM Event Display: Patient Education Leaflets Authored Date: [id number] Oxycodone Oral Tablet 5 mg ?? [id number] Oxycodone Oral Tablet 5 mg Uses For pain. ?? Instructions Some brands of this medicine should be swallowed whole while other brands may be crushed. Ask your pharmacist how you should take your medicine. This medicine may be taken with or without food. Swallow with a full glass (8 oz) of water unless your doctor gives you different instructions. Store at room temperature away from heat, light, and moisture. Do not keep in the bathroom. Please ask your doctor, nurse, or pharmacist how to discard unused medicines safely. To reduce constipation, eat high fiber foods, drink plenty of water and exercise. Avoid grapefruit juice while on this medicine. Drug interactions can change how medicines work or increase risk for side effects. Tell your healthcare providers about all medicines taken. Include prescription and nqow-yqk-nyvoomb medicines, vitamins, and herbal medicines. Speak with your doctor or pharmacist before starting or stopping any medicine. Tell your doctor if symptoms do not get better or if they get worse. Parts of this medicine may come out in the stool. This is normal. ?? Cautions This medicine has an opioid. Opioids help many people but may cause addiction, especially if used for a long time. The addiction risk is higher if you have a substance use disorder (overuse of or addiction to drugs or alcohol). Ask your doctor about the benefits and risks. Ask your doctor or pharmacist if you should have naloxone on hand to treat opioid overdose. Teach your family or household members about the signs of an opioid overdose and how to treat it. If you stop this medicine suddenly, after using it regularly for a long time, you may have withdrawal symptoms. Your doctor may ask you to slowly reduce your dose before stopping it. Tell your doctorright away if you notice any symptoms of withdrawal. Withdrawal symptoms can include unusual sweating, watering eyes, runny nose, chills, stomach pain, diarrhea, yawning, muscle aches, irritability, restlessness, anxiety, trouble sleeping, or thoughts of suicide. Tell your doctor and pharmacist if you ever had an allergic reaction to a medicine. Do not use the medication any more than instructed. This medicine may cause dizziness or fainting, especially after exercising or in hot weather. Be very careful when standing or sitting up quickly. If possible, avoid using with marijuana or other medicines that can cause dizziness or drowsiness. These include allergy/cold products, muscle relaxers, sleep aids, and pain relievers. Your ability to stay alert or to react quickly may be impaired by this medicine. Do not drive or operate machinery until you know how this medicine will affect you. Do not drink beverages with alcohol while on this medicine. This medicine passes into breast milk. Ask your doctor before . This medicine can hurt a new baby in the womb. If you become while on this medicine, tell your doctor immediately. Your doctor may switch you to a different medicine. This medicine should be used with caution in patients with breathing difficulties. Call your doctor right away if you notice slow or shallow breathing. Do not share this medicine with anyone who has not been prescribed this medicine. Some patients have serious side effects from this medicine. Ask your pharmacist to show you the information from the Food and Drug Administration (FDA) and discuss it with you. ?? Side Effects The following is a list of some common side effects from this medicine. Please speak with your doctor about what you should do if you experience these or other side effects. ??? decreased appetite ??? constipation ??? dizziness or drowsiness ??? lightheadedness ??? nausea and vomiting Call your doctor or get medical help right away if you notice any of these more serious side effects: ??? agitated feeling or trouble sleeping ??? decreased awareness or responsiveness ??? breathing interruption during sleep ??? shallow, irregular breathing ??? confusion ??? fainting ??? hallucinations (unusual thoughts, seeing or hearing things that are not real) ??? seizures ??? severe stomach or bowel pain ??? unusual or unexplained tiredness or weakness ??? difficulty or discomfort urinating ??? weight loss A few people may have an allergic reaction to this medicine. Symptoms can include difficulty breathing, skin rash, itching, swelling, or severe dizziness. If you notice any of these symptoms, seek medical help quickly. ?? Extra Please speak with your doctor, nurse, or pharmacist if you have any questions about this medicine. ?? [email or web address] IMPORTANT NOTE: This document tells you briefly how to take your medicine, but it does not tell youall there is to know about it. Your doctor or pharmacist may give you other documents about your medicine. Please talk to them if you have any questions. Always follow their advice. There is a more complete description of this medicine available in Gabonese. Scan this code on your smartphone or tablet or use the web address below. You can also ask your pharmacist for a printout. If you have any questions, please ask your pharmacist. The display and use of this drug information is subject to Terms of Use. Copyright(c) 2021 [employer]. ?? [employer]. All rights reserved. This information is not intended as a substitute for professional medical care. Always follow your healthcare professional's instructions. ?? * Catarina Hill NP: MODIFY, MODIFY, SIGN, VERIFY, PERFORM, MODIFY Event Display: Discharge/Transfer Note Hospital Authored Date: Patient: GERBER COOK Age: 61 years Sex: Male : 1960 Associated Diagnoses: None Author: Catarina Hill NP Discharge Information Admission Date: 02/17/2022 Discharge Date 02/22/2022 Primary Care Provider: Mike Kruse MD Principal Discharge Diagnosis Femoral hernia of left side. Medications MEDICATION LIST (Selected) Prescriptions Prescribed Aspirin Low Dose 81 mg oral delayed release tablet: 1 tablet, By Mouth, Daily, # 30 tablet, 11 Refills, 10/19/21 9:10:00 EDT, [facility]/pharmacy #[id number], 180, cm, 09/26/21 10:49:00 EDT, Height, 77, kg, 04/20/21 15:47:00 EST, Dry Weight Metoprolol Succinate ER 50 mg oral tablet, extended release: 1 tablet, By Mouth, Daily, INSTR:DO NOT CRUSH OR CHEW, # 30 tablet, 5 Refills, 10/19/21 9:10:00 EDT, [facility]/pharmacy #1230, 180, cm, 09/26/2209:49:00 EDT, Height, 77, kg, 04/20/21 15:47:00 EST, Dry Weight MiraLax oral powder for reconstitution: = 17 Gm, By Mouth, 2 times a day, dissolve in water before taking, # 527 Gm, 11 Refills, Maintenance, 10/19/21 9:10:00 EDT, REC Powder, [facility]/pharmacy #[id number], Partial fill upon patient request if the prescription is for a schedule II opioid drug., 17 Gm... Plavix 75 mg oral tablet: 75 mg, 1, tablet, By Mouth, Daily, # 90 tablet, Refills 1, Tot. Refills 1, Maintenance, 11/18/21 16:53:00 EDT, Route to Pharmacy Electronically, [facility]/pharmacy #1230, Partial fill upon patient request if the prescription is for a schedule II opioid drug... ProAir HFA 90 mcg/inh inhalation aerosol with adapter: 2, puffs, Inhalation, Every 6 hours, PRN, # 8.5 Gm, Refills 1, Tot. Refills 1, 12/13/21 12:40:00 EDT, Route to Pharmacy Electronically, [id number], [facility], 162, cm, 12/13/21 4:46:00 EDT, Height, 60.3,kg, 08... SEROquel 25 mg oral tablet: 25 mg, 1, tablet, By Mouth, Daily at bedtime, # 30 tablet, Refills 5, Tot. Refills 5, Maintenance, 10/28/21 14:23:00 EDT, Route to Pharmacy Electronically, [facility]/pharmacy #1230, 165, cm, 10/28/21 4:51:00 EDT, Height, 60.5, kg, 10/26/21 13:16:00 EDT, Dry... Spiriva Respimat 1.25 mcg/inh inhalation aerosol: 2 puffs, Inhalation, Daily, # 4 Gm, 5 Refills, 10/19/21 9:10:00 EDT, [facility]/pharmacy #1230, 180, cm, 09/26/21 10:49:00 EDT, Height, 77, kg, 04/20/21 15:47:00 EST, Dry Weight Symbicort 160mcg/4.5mcg Inhaler: 2, puffs, Inhalation, 2 times a day, # 10.2 Gm, Refills 10, Tot. Refills 10, 10/19/21 9:10:00 EDT, Route to Pharmacy Electronically, [id number], [facility]/pharmacy #1230, 180, cm, 09/26/21 10:49:00 EDT, Height, 77, kg, 04/20/21 15:... Zithromax 250 mg oral tablet: 1 pack/packet, By Mouth, Once, # 6 tablet, 0 Refills, Soft Stop, 02/07/22 18:30:00 EDT, Tablet, [facility]/pharmacy #1230, Partial fill upon patient request if the prescriptionis for a schedule II opioid drug., 163, cm, 02/07/22 18:18:00 EDT, Height, 60, kg... acetaminophen 325 mg oral tablet: 650 mg, 2, tablet, By Mouth, Every 4 hours, PRN, # 30 tablet, Refills 0, Tot. Refills 0, Maintenance, Pain , Mild, 02/21/22 15:17:00 EST, Route to Pharmacy Electronically, [facility], Partial fill upon patient request if the prescription... albuterol 0.083% inhalation solution: 3 mL = 2.5 mg, Inhalation, Every 6 hours, PRN for wheezing, #60 each, 5 Refills, Maintenance, 10/28/21 14:18:00 EDT, Solution, [facility]/pharmacy #1230, 165, cm, 10/28/21 4:51:00 EDT, Height, 60.5, kg, 10/26/21 13:16:00 EDT, Dry Weight amLODIPine 5 mg oral tablet: 1 tablet, By Mouth, Daily, # 90 tablet, 1 Refills, Maintenance, 02/09/22 12:58:00 EDT, [facility] STORE [id number], 163, cm, 02/07/22 18:18:00 EDT, Height, 60, kg, 02/07/22 15:54:00 EDT, Dry Weight fluticasone 50 mcg/inh nasal spray: See Instructions, USE 1 SPRAY IN EACH NOSTRIL TWICE A DAY, # 16each, 5 Refills, Maintenance, 12/19/21 15:27:00 EDT, [facility], 30, USE 1 SPRAY IN EACH NOSTRIL TWICE A DAY, 162, cm, 12/16/21 14:39:00 EDT, Height, 59.5, kg, 12/16/21 0:28:00... guaiFENesin 400 mg oral tablet: 1 tablet = 400 mg, By Mouth, 4 times a day, # 120 tablet, 5 Refills, Maintenance, 10/28/21 14:19:00 EDT, [facility], cm, 10/28/21 4:51:00 EDT, Height, 60.5, kg, 10/26/21 13:16:00 EDT, Dry Weight losartan 100 mg oral tablet: 1 tablet, By Mouth, Daily, # 30 tablet, 4 Refills, Maintenance, 12/23/21 13:25:00 EDT, [facility], 162, cm, 12/16/21 14:39:00 EDT, Height, 59.5, kg, 12/16/21 0:28:00 EDT, Dry Weight magnesium oxide 400 mg oral tablet: 1 tablet, By Mouth, Daily, # 30 tablet, 6 Refills, Maintenance,10/19/21 9:10:00 EDT, [facility] 180, cm, 09/26/21 10:49:00 EDT, Height, 77, kg, 04/20/21 15:47:00 EST, Dry Weight montelukast 10 mg oral tablet: See Instructions, TAKE 1 TABLET BY MOUTH EVERY DAY AT BEDTIME, # 30 tablet, Refills 11, Tot. Refills 11, Maintenance, 01/20/22 14:03:00 EDT, Instructions Replace Required Details, [facility] 162, cm, 01/20/22... omeprazole 20 mg oral delayed release tablet: 1 tablet = 20 mg, By Mouth, Daily, # 30 tablet, 11 Refills, Maintenance, 07/10/22 15:48:00 EDT, CR Tablet, [facility] Partial fill upon patient request if the prescription is for a schedule II opioid drug., 180, cm, 09/26/21 10:49:00 EDT, Hei... oxyCODONE 5 mg oral tablet: 5 mg, 1, tablet, By Mouth, Every 4 hours, PRN, # 15 tablet, Refills 0, Tot. Refills 0, Maintenance, Pain , Severe, 02/21/22 15:17:00 EST, Route to Pharmacy Electronically,[facility], Partial fill upon patient request if the prescription... pravastatin 40 mg oral tablet: See Instructions, TAKE 1 TABLET BY MOUTH EVERY DAY, # 30 tablet, 5 Refills, Maintenance, 12/19/21 15:29:00 EDT, [facility], 162, cm, 12/16/21 14:39:00 EDT, Height, 59.5, kg, 12/16/21 0:28:00 EDT, Dry Weight riboflavin 400 mg oral capsule: 1 capsule = 400 mg, By Mouth, Daily, # 30 capsule, 5 Refills, Maintenance, 10/19/21 9:10:00 EDT, [facility] Partial fill upon patient request if the prescription is for a schedule II opioid drug., 180, cm, 09/26/21 10:49:00 EDT, Height, 77, k... tamsulosin 0.4 mg oral capsule: 1, capsule, By Mouth, Daily, # 30 capsule, Refills 4, Tot. Refills 4, Maintenance, 10/19/21 9:10:00 EDT, [id number], cm,09/26/21 10:49:00 EDT, Height, 77, kg, 04/20/21 15:47:00 EST, Dry Weight venlafaxine 37.5 mg oral capsule, extended release: 37.5 mg, 1, capsule, By Mouth, Daily, # 30 capsule, Refills 1, Tot. Refills 1, Maintenance, 02/09/22 12:57:00 EDT, Route to Pharmacy Electronically, [facility]/pharmacy #[id number], Partial fill upon patient request if the prescription is for a schedule II opioid... Documented Medications Documented Breo Ellipta 200 mcg-25 mcg/inh inhalation powder: 1 puffs, Inhalation, Daily, 0 Refills, Maintenance, 12/16/21 1:09:00 EDT, Powder, Partial fill upon patient request if the prescription is for a schedule II opioid drug. Cetirizine: = 10 mg, By Mouth, Daily, 0 Refills, Maintenance, 12/16/21 1:02:00 EDT, Partial fill upon patient request if the prescription is for a schedule II opioid drug. Loratadine: 10 mg, By Mouth, Daily, Refills 0, Maintenance, 12/16/21 1:07:00 EDT, Partial fill uponpatient request if the prescription is for a schedule II opioid drug.. Aware of diagnosis: patient. Procedures Operative Information Procedure Date: 02/21/2022. Preoperative Diagnosis: Left femoral hernia. Postoperative Diagnosis: Same as Preoperative Diagnosis. Procedure Performed: Open left femoral hernia repair with mesh. Surgeon: Anoop Hall MD Assistants: Vance BERNABE, Azul. Anesthesia Type: General, Local. Indication: Gerber Cook is a 61M w/ PMH of COPD, BPH, GERD, HTN, PVD and prior CVA on ASA/Plavix who presented to the ED with abdominal pain and left inguinal pain for 4 days. Work-up included ct scan revealing left sided femoral hernia continuing omentum/fat. Although hernia appeared to be reducible, given per sistent pain, our surgical team recommended open repair of the femoral hernia with mesh. Risks and benefits of the procedure were discussed with the patient and consent was subsequently obtained. Operative Note Findings Omentum in left femoral hernia defect, reduced intraoperatively Specimen None Estimated Blood Loss <5cc . Discharge condition: good Compared to admission: improved Hospital Course Gerbre Cook 61 year old male with a past medical history of COPD, BPH, GERD, HTN, PVD and prior CVAon ASA/Plavix who presented to the ED with abdominal pain and left inguinal pain for 4 days. Work-up included ct scan revealing left sided femoral hernia continuing omentum/fat. ACS/EGS surgery was consulted. Hernia was able to be reduced at bedside and he was booked for repair. Pt is now status pos t left hernia repair with mesh by Dr. Lora on 02/20/2022. PT without complications. As he is homeless social work was consulted as well as director case management. Shelters called and it was found to have a place to go after discharge. The patient was cleared for discharge on 02/22/2022. At that time he was tolerating a diet without nausea or vomiting, his pain was well controlled, he was passing flatus, voiding, and ambulating without difficulty. The patient was instructed to follow up with with his surgeon, Dr. Lora, in approximately 1-2 weeks. He was given prescriptions for Oxy and Tylenol. Physical Exam: General: AAO x 3; M/F in no apparent distress Cardiac: Regular rate and rhythm Respiratory: Clear to auscultation bilaterally without wheezes, rales or rhonchi. Abdomen: Soft, non distended, left inguinal pain appropriate , incisional. no rebound or guarding Extremities: No edema, cyanosis, clubbing. Skin: left inguinal dressing removed, incision with steri strips CDI Psych: Appropriate affect. RESULT: CT Abd/Pelvis W/ IV Contrast Only CT Abd/Pelvis W/ IV Contrast Only Hx of Present Illness: Pt reports having severe pain L inguinal area over last 4 days. Patient reports intermittent swelling that improved and now is back and severe.; Reason: Other:; L inguinal hernia w abdominal pain; Clinical Question(s): Obstruction; Order Comment: TECHNIQUE: Spiral CT through the abdomen and pelvis with IV contrast formatted in 3 planes. 75 cc of Omnipaque 300 was administered intravenously. This study was performed without oral contrast. Weight-based protocol using automatic tube modulation was used to optimize exposure parameters. CTDIvol Body: 6.56 mGy, DLP Body: 314 mGy*cm. COMPARISON: None. FINDINGS: Claims Consultant View Findings, Lines and Tubes: None. Visualized Chest: Moderate centrilobular emphysematous changes. No pleural effusion. The heart is normal in size. No pericardial effusion. Small hiatal hernia. This is likely significant gastroesophageal reflux or dysmotility. Diaphragm: Normal. Liver: Normal. Low-attenuation area within the medial segment of the left hepatic lobe likely representing normal variant. Gallbladder: No CT evidence of gallbladder pathology. Bile ducts: No biliary ductal dilation. Spleen: Normal. Pancreas: Normal. Adrenal glands: Normal. Kidneys and ureters: No hydronephrosis, stones, or suspicious masses. Bilateral renal cysts. Bladder: Normal. Reproductive organs: Prostate is enlarged measuring 5.6 cm. Stomach, small bowel, and large bowel: A few scattered diverticula within the descending and sigmoid colon without evidence of diverticulitis.. Appendix: Normal. Peritoneum and retroperitoneum: No ascites or pneumoperitoneum. No omental or mesenteric lesions. Lymph nodes: No enlarged lymph nodes. Blood vessels: Normal. No aneurysm. No evidence of venous thrombosis. Abdominal and pelvic wall: Small bilateral inguinal hernias containing omental fat. There is a small to moderate left femoral hernia containing omental fat with stranding. Bones: No acute abnormality. IMPRESSION: Small to moderate left femoral hernia containing omental fat which is slightly inflamed. Enlarged prostate. Recommend correlation patient's PSA level. Significant Results Results: Vital signs : VITAL SIGNS SECTION 02/22/2022 7:07 EST Temperature 98.2 DegF Temperature Route Oral Pulse Rate 70 bpm Respiratory Rate 19 br/min Systolic Blood Pressure 100 mm Hg Diastolic Blood Pressure 53 mm Hg L Mean Arterial Pressure 69 mm Hg Pulse Pressure 47 mm Hg Oxygen Saturation 92 % L Mode of Delivery (Oxygen) Room air , Laboratory : LABORATORY 02/21/2022 1:14 EST WBC 18.4 k/mm3 H RBC 3.62 m/mm3 L Hgb 11.2 Gm/dL L Hct 34.4 % L MCV 95.0 femtoliters H MCH 30.9 pg MCHC 32.6 g/dL L Platelet Count 293 k/mm3 RDW-SD 46.1 femtoliters MPV 8.7 femtoliters L Nucleated RBC (Automated) 0.0 #/100 WBC'S Abs. NRBC 0.0 k/mm3 Abs. Neut 15.7 k/mm3 H Abs. Lymph 1.8 k/mm3 Abs. Carter 0.7 k/mm3 Abs. Eo 0.0 k/mm3 Abs. Baso 0.0 k/mm3 Neut % 85.3 % H Lymph % 9.9 % L Carter % 4.0 % L Eos % 0.2 % Baso % 0.1 % Imm Gran 0.5 % Abs. Imm Gran 0.1 k/mm3 Sodium 135 mmol/L Potassium 4.1 mmol/L Chloride 101 mmol/L Bicarbonate Level 25 mmol/L Anion Gap 9 BUN 15 mg/dL Creatinine-Blood 0.9 mg/dL Estimated GFR Creatinine 97 ML/MIN/1.73 M2 Calcium, Ionized pH Corrected 1.19 mmol/L Phosphorus 3.9 mg/dL Magnesium 1.7 mg/dL . Discharge Plan Prescription Given this visit:Prescriptions Acetaminophen (acetaminophen 325 mg oral tablet) 2 tablet = 650 mg, By Mouth, Every 4 hours, # 30 tablet, 0 Refills, [facility], [address] [place] [address] [phone] Next Dose: Oxycodone (oxyCODONE 5 mg oral tablet) 1 tablet = 5 mg, By Mouth, Every 4 hours, # 15 tablet, 0 Refills, [facility], [address] [place] [address] [phone] Next Dose: Patient Instructions Given:Special Instructions If you develop fever, chills, increased pain, nausea, vomiting, bleeding, or increased redness or pus around the wound please call the surgery office at . Please take medications as prescribed and do not drive while on narcotic medications. If you have any questions, please call the surgery office at . Please call your Primary Care Provider within 1 week for post hospital follow up and review of yourmedications. Activity Instructions -No heavy lifting >10 lbs -Increase activity as tolerated -Encourage coughing and deep breathing, use of incentive spirometer -No tub baths until incision(s) has/have healed -May shower on postop day #2 -No driving until off narcotics and cleared by Surgery When to call your healthcare provider 1 Call your healthcare provider if you have any of the below: 2 Pain, redness, swelling, or bleeding that gets worse 1 2 Smelly fluid from the incision, or changes in color of the drainage from the incision 1 2 Fever of 100.4??F ( 38??C) or higher, or as advised 1 2 Shaking or chills 1 2 Vomiting or nausea that doesn???t go away 1 2 Numbness, coldness, or tingling around the incision 1 2 Changes in skin color around the incision 1 2 Opening of the wound 1 2 Stitches that pull apart 1 2 Heranndo that fall out Education Given:What Is a Hernia? Patient Follow-up:Added Follow Up Time Frame Comments Roque BERNABE, Javierradha H 03/08/2022 10:00 Please call to schedule follow up with Dr. Nevarez * Catarina Hill NP: PERFORM Event Display: Patient Education Leaflets Authored Date: [id number] What Is a Hernia? ?? [id number] What Is a Hernia? A hernia is when an organ or tissue pushes through a weak spot in the belly (abdominal) wall. This weak spot may be there at . Or it may be caused by abdominal strain over time. If not treated, a hernia can get worse with time and physical stress. When a bulge forms When there is a weak spot in the abdominal wall, an organ or tissue can push outward. This often causes a bulge that you can see under your skin. The bulge may get bigger when you stand up. It may goaway when you lie down. You may also feel some pressure or mild pain when lifting, coughing, urinating, or moving. ?? Types of hernias The type of hernia you have depends on where it is. Most hernias form in the groin at or near the internal ring. This is the entrance to a canal between the abdomen and groin. Hernias can also occur in the abdomen, thigh, or genitals. ??? Incisional hernia. This occurs at the site of a previous surgical cut (incision). ??? Umbilicalhernia. This occurs at the bellybutton (navel). ??? Indirect inguinal hernia. This occurs in the groin at the internal ring. ??? Direct inguinal hernia. This occurs in the groin near the internal ring. ??? Femoral hernia. This occurs just below the groin. ??? Epigastric hernia. This occurs in the upper abdomen at the midline. Other types of hernias can occur. But they are rare. ?? Diagnosis In most cases, your healthcare provider can diagnose a hernia with a physical exam. In some cases, it might not be clear why you have swelling in the belly wall. You may need an imaging test such as an ultrasound or CT scan. This can help with the diagnosis. ?? Surgery In children, an umbilical hernia can often heal on its own. In adults, a hernia will not heal on its own. Surgery is needed to repair the weak spot in the belly wall. If not treated, a hernia can getlarger. It can cause serious health problems. Some hernias can be watched and repaired if they growbigger or start to cause symptoms. Most hernias are fixed with laparoscopic surgery. This type of surgery is done through several verysmall cuts. Some types of hernias may need surgery where a larger cut is made in the belly. In??some cases, you can go home the same day as your surgery. ?? When to call your provider Call or see your healthcare provider right away if the swelling around your??hernia becomes??larger,??firmer, or more painful. These may be??signs that your intestines are??stuck in the belly wall and their blood supply is in trouble. This is an emergency. The hernia must be repaired right away to prevent severe problems. ?? Last Reviewed Date: 2021 ?? [id number] [employer]. All rights reserved. This information is not intended as a substitute for professional medical care. Always follow your healthcare professional's instructions. ?? CT Abdomen and Pelvis W contrast IV * [facility] , CIS S: TRANSCRIBE Silvino BERNABE, Mamadou H: VERIFY Event Display: Result: Authored Date: CT Abd/Pelvis W/ IV Contrast Only Hx of Present Illness: Pt reports having severe pain L inguinal area over last 4 days. Patient reports intermittent swelling that improved and now is back and severe.; Reason: Other:; L inguinal hernia w abdominal pain; Clinical Question(s): Obstruction; Order Comment: TECHNIQUE: Spiral CT through the abdomen and pelvis with IV contrast formatted in 3 planes. 75 cc of Omnipaque 300 was administered intravenously. This study was performed without oral contrast. Weight-based protocol using automatic tube modulation was used to optimize exposure parameters. CTDIvol Body: 6.56 mGy, DLP Body: 314 mGy*cm. COMPARISON: None. FINDINGS: Claims Consultant View Findings, Lines and Tubes: None. Visualized Chest: Moderate centrilobular emphysematous changes. No pleural effusion. The heart is normal in size. No pericardial effusion. Small hiatal hernia. This is likely significant gastroesophageal reflux or dysmotility. Diaphragm: Normal. Liver: Normal. Low-attenuation area within the medial segment of the left hepatic lobe likely representing normal variant. Gallbladder: No CT evidence of gallbladder pathology. Bile ducts: No biliary ductal dilation. Spleen: Normal. Pancreas: Normal. Adrenal glands: Normal. Kidneys and ureters: No hydronephrosis, stones, or suspicious masses. Bilateral renal cysts. Bladder: Normal. Reproductive organs: Prostate is enlarged measuring 5.6 cm. Stomach, small bowel, and large bowel: A few scattered diverticula within the descending and sigmoid colon without evidence of diverticulitis.. Appendix: Normal. Peritoneum and retroperitoneum: No ascites or pneumoperitoneum. No omental or mesenteric lesions. Lymph nodes: No enlarged lymph nodes. Blood vessels: Normal. No aneurysm. No evidence of venous thrombosis. Abdominal and pelvic wall: Small bilateral inguinal hernias containing omental fat. There is a small to moderate left femoral hernia containing omental fat with stranding. Bones: No acute abnormality. IMPRESSION: Small to moderate left femoral hernia containing omental fat which is slightly inflamed. Enlarged prostate. Recommend correlation patient's PSA level. A critical result message (Document Only) has been communicated via the [employer] system on 02/16/2022 9:38 PM, Message ID [id number]. WSN: [id number] Ordering Physician: Joe Casey Dictated By: Mamadou Dubois MD Dictated Date/Time: 02/16/22 9:38 pm Reviewed By: Mamadou Dubois MD Signed By: Mamadou Dubois MD Signed Date/Time: 02/16/22 9:38 pm Transcribed By: JAX Transcribed Date/Time: 02/16/22 9:25 pm Patient Care team information Care Team Personnel Name: Ana Cardenas Position: S RN Member Role: Primary Care Nurse Name: Odalys Orozco RN Position: S RN Member Role: Primary Care Nurse Name: Mike Kruse MD Position: [facility] Primary Care Physician Member Role: PCP Address: Address: [address] [place] [id number]- Name: Maryam Valenzuela RN Position: S RN Member Role: Primary Care Nurse Name: Deandre Lara LPN Position: [facility] RN Member Role: Primary Care Nurse Name: Aruna Winkler RN Position: [facility] RN Member Role: Primary Care Nurse Name: Sabrina Hare RN Position: [facility] RN Member Role: Primary Care Nurse Name: Kristyn Olivo RN Position: [facility] RN Member Role: Primary Care Nurse Name: Marguerite Florentino RN Position: [facility] RN Member Role: Primary Care Nurse Name: [facility] Attending Position: [facility] ED Medicine MD Name: Monika Rodriguez RN Position: [facility] ED RN W/OE and Tasks Member Role: Patient Care Provider Name: Joe Casey MD Position: [facility] Resident Member Role: ED Resident Address: Address: [address] [place] [address] [place] [address]- [place] Care Team Related Persons Name: ENA SOTO Address: home [address] [place] [address] Name: ELISA TOMPKINS Address: [place] [address] Name: JOSE RAFAEL LI
--- OUTSIDE RECORDS SUMMARY | 2022-09-19 20:55 | XMS_ITS | Continuity of Care Document ---
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 Name Role Phone Aixa BERNABE, Mike Bennett Primary Care Physician Encounter [facility] Date(s): 08/21/20 - 09/20/20 [facility] Adult [address] [place] [address]- Allergies, Adverse Reactions, Alerts Substance Reaction Severity [...] Mohan rded influenza virus vaccine, inactivated 11/28/10 Mhoan rded tetanus-diphtheria toxoids (Td) 02/10/19 Given tetanus-diphtheria [...] 05/05/20 13:45:00 EST, Route to Pharmacy Electronically, [facility], 174, cm, 03/01/20 11:26:00 EST, Height, [...] Gm, 11 Refills, Maintenance, 05/07/20 10:33:00 EST, [facility], 30, 1 puffs Inhalation 4 times a day,PRN: NEEDED FOR WHEEZING OR SHORTNESS OF BREATH... Start Date: 05/07/20 Status: Ordered cromolyn 4% ophthalmic solution 1 drops, Eye, Left, 4 times a day, # 10 mL, 0 Refills, Maintenance, 08/31/20 9:58:00 EDT, Solution,[facility], Partial fill upon patient request [...] 2 Refills, Maintenance, 08/17/20 14:09:00 EDT, Capsule, [facility], Partial fill upon patient request if [...] Maintenance, 04/27/2113:59:00 EST, Route to Pharmacy Electronically, [facility], 174, cm, 03/01/20 11:26:00 EST, Height, 57, kg, 03/19/19 14:07:00 EST, Dry Weight Start Date: 04/27/20 Status: Ordered fluticasone 50 mcg/inh nasal spray See Instructions, INSTILL 1 SPRAY INTO EACH NOSTRIL TWICE DAILY, # 16 Gm, 2 Refills, 08/24/20 15:55:00 EDT, [facility], 30, INSTILL 1 SPRAY INTO EACH [...] 1 Refills, Maintenance, 08/17/20 14:11:00 EDT, Capsule, [facility], Partial fill upon patient request if the prescription is for a scheduleII opioid drug., 174, cm, 08/17/20 13:45:00 EDT, He... Start Date: 08/17/20 Status: Ordered losartan 100 mg oral tablet 1 tablet, By Mouth, Daily, # 30 tablet, 11 Refills, Maintenance, 07/12/20 14:44:00 EDT, [facility], 174, cm, 07/12/20 14:32:00 EDT, Height, 57, kg, 03/19/19 14:07:00 EST, Dry Weight Start Date: 07/12/20 Status: Ordered metoprolol 50 mg oral tablet, extended release 50 mg, 1, tablet, By Mouth, Daily, do not crush or chew, # 30 tablet, Refills 11, Tot. Refills 11, Maintenance, 07/12/20 14:44:00 EDT, Route to Pharmacy Electronically, [facility], 174, cm,07/12/20 14:32:00 EDT, Height, 57, kg, 03/19/19 14:... Start Date: 07/12/20 Status: Ordered Nasacort Allergy 24HR 55 mcg/inh nasal spray 2 sprays, Nares, Both, Daily, # 3 each, 0 Refills, Maintenance, 01/08/20 14:50:00 EDT, [facility], 2 sprays Nares, Both Daily, 174, cm, 01/08/20 14:29:00 EDT, Height, 57, kg, 03/19/19 14:07:00 EST, Dry Weight Start Date: 01/08/20 Status: Ordered nicotine 4 mg oral transmucosal lozenge 1 lozenge = 4 mg, By Mouth, Every hour, # 189 lozenge, 11 Refills, Maintenance, 07/12/20 14:49:00 EDT, [facility], 1 lozenge By Mouth Every hour, 174, cm, 07/12/20 14:32:00 EDT, Height, 57,kg, 03/19/19 14:07:00 EST, Dry Weight Start Date: 07/12/20 Status: Ordered omeprazole 20 mg oral enteric coated capsule 1 capsule, By Mouth, Daily, # 14 capsule, 0 Refills, Maintenance, 07/05/20 8:06:00 EDT, [facility], 174, cm, 06/22/20 14:37:00 EST, Height, 57, kg, 03/19/19 14:07:00 EST, Dry Weight Start Date: 07/05/20 Stop Date: 07/19/20 Status: Ordered pravastatin 40 mg oral tablet 1 tablet = 40 mg, By Mouth, Daily, # 90 tablet, 1 Refills, Maintenance, 08/24/20 15:56:00 EDT, Tablet, [facility], 174, cm, 08/17/20 13:45:00 EDT, Height, 57, kg, 03/19/19 14:07:00 EST, DryWeight Start Date: 08/24/20 Status: Ordered Remeron 15 mg oral tablet 1 tablet = 15 mg, By Mouth, Daily at bedtime, REPLACES ZOLOFT, # 30 tablet, 1 Refills, Maintenance,06/22/20 15:13:00 EST, Tablet, [facility], Partial fill upon patient request if the prescription is for a schedule II opioid drug., 174, cm,... Start Date: 06/22/20 Status: Ordered Singulair 10 mg oral tablet 10 mg, 1, tablet, By Mouth, Daily at bedtime, PER ARPIT DUNN, # 30 tablet, Refills 5, Tot. Refills 5, Maintenance, 05/05/20 13:42:00 EST, Route to Pharmacy Electronically, [facility], 174, cm, 03/01/20 11:26:00 EST, Height, 57, kg, 12... Start Date: 05/05/20 Status: Ordered Spiriva Respimat 1.25 mcg/inh inhalation aerosol 2 puffs, Inhalation, Daily, # 4 Gm, 11 Refills, Maintenance, 05/25/20 13:51:00 EST, Aerosol, [facility], Partial fill upon patient request if the prescription is for a schedule II opioid drug., 174, cm, 05/07/20 10:13:00 EST, Height, 57, kg,... Start Date: 05/25/20 Status: Ordered Symbicort 160mcg/4.5mcg Inhaler 2, puffs, Inhalation, 2 times a day, # 1 each, Refills 11, Tot. Refills 11, Maintenance, 05/25/20 13:51:00 EST, Aerosol, Route to Pharmacy Electronically, NCPDP_[id number], [facility], 174,cm, 05/07/20 10:13:00 EST, Height, 57, kg, 03/19/19... Start Date: 05/25/20 Status: Ordered traZODone 50 mg oral tablet 100 mg, 2, tablet, By Mouth, Daily at bedtime, # 60 tablet, Refills 11, Tot. Refills 11, Maintenance, 07/12/20 14:43:00 EDT, Route to Pharmacy Electronically, [facility], 174, cm, 07/12/20 14:32:00 EDT, Height, 57, kg, 03/19/19 14:07:00 EST,... Start Date: 07/12/20 Status: Ordered Tylenol Extra Strength 500 mg oral tablet See Instructions, PRN for pain, 1 or 2 tablet By Mouth 3 times a day PER DR TRISTAN, # 100 tablet, 11 Refills, Maintenance, 06/08/20 10:22:00 EST, Tablet, [facility], 174, cm, 06/08/20 9:48:00 EST, Height, 57, kg, 03/19/19 14:07:00 EST, Dry Weight Start Date: 06/08/20 Status: Ordered ZyrTEC 10 mg oral tablet 1 tablet = 10 mg, By Mouth, Daily, # 30 tablet, 5 Refills, Maintenance, 03/08/20 8:02:00 EST, Tablet, [facility], 174, cm, [...]
--- OUTSIDE RECORDS SUMMARY | 2022-09-19 20:55 | XMS_ITS | Continuity of Care Document ---
Author Name Unknown Organization [facility] Trevor lt Address [address] [place] [address]- Care Team Providers Care Technical Professional Name Role Phone Mike Tristan MD Primary Care Physician [phone] [facility]counter [facility] Date[facility]s): 12/29/20 - 01/28/21 [facility] [address] [place] [address]- Allergies, Adverse Reactions, Alerts Substance Reaction Severity [...] 01/10/21 16:35:00 EDT, Route to Pharmacy Electronically, [facility], 174, cm, 12/30/20 14:45:00 EDT, Height, 57, kg, 03/19/19 14:07:00 EST, Dry Weight Start Date: 01/10/21 Status: Ordered Aspirin Low Dose 81 mg oral delayed release tablet 1 tablet, By Mouth, Daily, # 30 tablet, 2 Refills, [facility], 174, cm, 01/14/21 15:08:00EDT, Height, 57, kg, 03/19/19 14:07:00 EST, Dry Weight Start Date: 01/25/21 Status: Ordered Combivent Respimat 20 mcg-100 mcg/inh inhalation aerosol 1 puffs, Inhalation, 4 times a day, PRN NEEDED FOR WHEEZING OR SHORTNESS OF BREATH, # 4 Gm, 11 Refills, Maintenance, 05/07/20 10:33:00 EST, [facility], 30, 1 puffs Inhalation 4 times a day,PRN: NEEDED FOR WHEEZING OR SHORTNESS OF BREATH... Start Date: 05/07/20 Status: Ordered docusate sodium 100 mg oral capsule 1 capsule = 100 mg, By Mouth, 2 times a day, PRN as needed for constipation, # 100 capsule, 2 Refills, Maintenance, 08/17/20 14:09:00 EDT, Capsule, [facility], Partial fill upon patient request [...] 16 Gm, 2 Refills, 08/24/20 15:55:00 EDT, [facility], 30, INSTILL 1 SPRAY INTO EACH [...] 1 Refills, Maintenance, 11/30/20 11:11:00 EDT, Capsule, [facility], Partial fill upon patient request if the prescription is for a scheduleII opioid drug., 174, cm, 11/30/20 10:34:00 EDT, He... Start Date: 11/30/20 Status: Ordered losartan 100 mg oral tablet 1 tablet, By Mouth, Daily, # 30 tablet, 11 Refills, Maintenance, 07/12/20 14:44:00 EDT, [facility], 174, cm, 07/12/20 14:32:00 EDT, Height, 57, kg, 03/19/19 14:07:00 EST, Dry Weight Start Date: 07/12/20 Status: Ordered metoprolol 50 mg oral tablet, extended release 50 mg, 1, tablet, By Mouth, Daily, do not crush or chew, # 30 tablet, Refills 11, Tot. Refills 11, Maintenance, 07/12/20 14:44:00 EDT, Route to Pharmacy Electronically, [facility], 174, cm,07/12/20 14:32:00 EDT, Height, 57, kg, 03/19/19 14:... Start Date: 07/12/20 Status: Ordered montelukast 10 mg oral tablet 1, tablet, By Mouth, Daily at bedtime, # 30 tablet, Refills 4, Tot. Refills 0, Maintenance, 10/20/20 11:07:00 EDT, Route to Pharmacy Electronically, [facility], 174, cm, 09/14/20 14:37:00 EDT, Height, 57, kg, 03/19/19 14:07:00 EST, Dry Weight Start Date: 10/20/20 Status: Ordered Nasacort Allergy 24HR 55 mcg/inh nasal spray 2 sprays, Nares, Both, Daily, # 3 each, 0 Refills, Maintenance, 01/08/20 14:50:00 EDT, [facility], 2 sprays Nares, Both Daily, 174, cm, 01/08/20 14:29:00 EDT, Height, 57, kg, 03/19/19 14:07:00 EST, Dry Weight Start Date: 01/08/20 Status: Ordered nicotine 4 mg oral transmucosal lozenge 1 lozenge = 4 mg, By Mouth, Every hour, # 189 lozenge, 11 Refills, Maintenance, 07/12/20 14:49:00 EDT, [facility], 1 lozenge By Mouth Every hour, 174, cm, 07/12/20 14:32:00 EDT, Height, 57,kg, 03/19/19 14:07:00 EST, Dry Weight Start Date: 07/12/20 Status: Ordered omeprazole 20 mg oral enteric coated capsule 1 capsule, By Mouth, Daily, # 14 capsule, 0 Refills, Maintenance, 07/05/20 8:06:00 EDT, [facility], 174, cm, 06/22/20 14:37:00 EST, Height, 57, kg, 03/19/19 14:07:00 EST, Dry Weight Start Date: 07/05/20 Stop Date: 07/19/20 Status: Ordered pravastatin 40 mg oral tablet 1 tablet = 40 mg, By Mouth, Daily, # 90 tablet, 1 Refills, Maintenance, 08/24/20 15:56:00 EDT, Tablet, [facility], 174, cm, 08/17/20 13:45:00 EDT, Height, 57, kg, 03/19/19 14:07:00 EST, DryWeight Start Date: 08/24/20 Status: Ordered Remeron 15 mg oral tablet 1 tablet = 15 mg, By Mouth, Daily at bedtime, REPLACES ZOLOFT, # 30 tablet, 1 Refills, Maintenance,06/22/20 15:13:00 EST, Tablet, [facility], Partial fill upon patient request if the prescription is for a schedule II opioid drug., 174, cm,... Start Date: 06/22/20 Status: Ordered Spiriva Respimat 1.25 mcg/inh inhalation aerosol 2 puffs, Inhalation, Daily, # 4 Gm, 11 Refills, Maintenance, 05/25/20 13:51:00 EST, Aerosol, [facility], Partial fill upon patient request if the prescription is for a schedule II opioid drug., 174, cm, 05/07/20 10:13:00 EST, Height, 57, kg,... Start Date: 05/25/20 Status: Ordered Symbicort 160mcg/4.5mcg Inhaler 2, puffs, Inhalation, 2 times a day, # 1 each, Refills 11, Tot. Refills 11, Maintenance, 05/25/20 13:51:00 EST, Aerosol, Route to Pharmacy Electronically, NCPDP_[id number], [facility], 174,cm, 05/07/20 10:13:00 EST, Height, 57, kg, 03/19/19... Start Date: 05/25/20 Status: Ordered tamsulosin 0.4 mg oral capsule 1, capsule, By Mouth, Daily, # 30 capsule, Refills 4, Tot. Refills 0, Maintenance, 10/20/20 11:06:00 EDT, Route to Pharmacy Electronically, [facility], 174, cm, 09/14/20 14:37:00 EDT, Height, 57, kg, 03/19/19 14:07:00 EST, Dry Weight Start Date: 10/20/20 Status: Ordered traZODone 50 mg oral tablet 100 mg, 2, tablet, By Mouth, Daily at bedtime, # 60 tablet, Refills 11, Tot. Refills 11, Maintenance, 07/12/20 14:43:00 EDT, Route to Pharmacy Electronically, [facility], 174, cm, 07/12/20 14:32:00 EDT, Height, 57, kg, 03/19/19 14:07:00 EST,... Start Date: 07/12/20 Status: Ordered Tylenol Extra Strength 500 mg oral tablet See Instructions, PRN for pain, 1 or 2 tablet By Mouth 3 times a day PER DR TRISTAN, # 100 tablet, 11 Refills, Maintenance, 06/08/20 10:22:00 EST, Tablet, [facility], 174, cm, 06/08/20 9:48:00 EST, Height, [...]
--- OUTSIDE RECORDS SUMMARY | 2022-09-19 20:55 | XMS_ITS | Continuity of Care Document ---
Author Name Unknown Organization [facility] Trevor lt Address [address] [place] [id number]- Care Team Providers Care Fusing Line Inspector Name Role Phone Mike Kruse MD Primary Care Physician [facility] Date[facility]s): 07/18/21 - 08/17/21 [facility] Adult [address] [place] [address]- Allergies, Adverse Reactions, Alerts Substance Reaction Severity [...] 11 Refills, Maintenance, 07/15/21 15:49:00 EDT, Solution, [facility], Partial fill upon patient [...] 0 Refills, Maintenance, 08/11/21 10:25:00 EDT, Tablet, [facility], Partial fill [...] A DAY, # 16 Gm, 5 Refills, [facility], 30, USE 1 SPRAY IN EACH NOSTRIL TWICE A DAY, 180, cm, 05/03/21 9:32:00 EST, Height, 77, kg, 04/20/21 15:47:00 EST, Dry Weight Start Date: 05/10/21 Status: Ordered losartan 100 mg oral tablet 1 tablet, By Mouth, Daily, # 30 tablet, 5 Refills, Maintenance, 07/05/21 11:52:00 EDT, [facility], 180, cm, 06/27/21 12:02:00 EDT, Height, 77, kg, 04/20/21 15:47:00 EST, Dry Weight Start Date: 07/05/21 Status: Ordered Medrol Dosepak 4 mg oral tablet 1 pack/packet, By Mouth, Daily, for 6 days, as directed on package labeling, # 21 tablet, 5 Refills, Acute 09/07/21 15:11:00 EDT, 08/02/21 15:11:00 EDT, Tablet, [facility], Partial fill upon patient request if the prescription is for a sched... Start Date: 08/02/21 Stop Date: 09/07/21 Status: Ordered Metoprolol Succinate ER 50 mg oral tablet, extended release 1 tablet, By Mouth, Daily, INSTR:DO NOT CRUSH OR CHEW, # 30 tablet, 5 Refills, [facility], 180, cm, 07/15/21 15:35:00 EDT, Height, 77, [...] tablet, Refills 5, [facility]ically, [facility] [...] 09/22/21 10:22:00 EDT, 08/11/21 10:22:00 EDT, Patch, [facility], Partial fill upon patient [...] 1 Refills, Maintenance, 05/10/21 10:26:00 EST, Tablet, [facility], 180, cm, 05/03/21 9:32:00 EST, Height, 77, kg, 04/20/21 15:47:00 EST, Dry Weight Start Date: 05/10/21 Status: Ordered ProAir HFA 90 mcg/inh inhalation aerosol with adapter 2, puffs, Inhalation, Every 6 hours, PRN, # 8.5 Gm, Refills 6, Route to Pharmacy Electronically, NCPDP_[id number], [facility], 174, cm, 04/14/21 14:32:00 EST, Height Start Date: 04/18/21 Status: Ordered Spiriva Respimat 1.25 mcg/inh inhalation aerosol 2 puffs, Inhalation, Daily, # 4 Gm, 5 Refills, [facility], 180, cm, 05/03/21 9:32:00 EST,Height, 77, kg, 04/20/21 15:47:00 EST, Dry Weight Start Date: 05/05/21 Status: Ordered Symbicort 160mcg/4.5mcg Inhaler 2, puffs, Inhalation, 2 times a day, # 10.2 Gm, Refills 10, Route to Pharmacy Electronically, HIPDP_[id number], [facility], 180, cm, 05/03/21 9:32:00 EST, Height, 77, kg, 04/20/21 15:47:00 EST, Dry Weight Start Date: 05/06/21 Status: Ordered tamsulosin 0.4 mg oral capsule 1, capsule, By Mouth, Daily, # 30 capsule, Refills 5, Route to Pharmacy Electronically, [facility], 174, cm, 03/15/21 10:16:00 EST, Height, 57, kg, 03/19/19 14:07:00 EST, Dry Weight Start Date: 03/15/21 Status: Ordered traZODone 50 mg oral tablet 100 mg, 2, tablet, By Mouth, Daily at bedtime, # 60 tablet, Refills 5, Tot. Refills 5, Maintenance,08/05/21 10:43:00 EDT, Route to Pharmacy Electronically, [facility], 180, cm, 08/02/21 15:00:00 EDT, Height, 77, kg, 04/20/21 15:47:00 EST, D... Start Date: 08/05/21 Status: Ordered venlafaxine 37.5 mg oral capsule, extended release 37.5 mg, 1, capsule, By Mouth, Daily, # 30 capsule, Refills 0, Tot. Refills 0, Maintenance, 06/27/21 13:03:00 EDT, Route to Pharmacy Electronically, [facility] [...]
--- OUTSIDE RECORDS SUMMARY | 2022-09-19 20:55 | XMS_ITS | Continuity of Care Document ---
Author Name Unknown Organization [facility] Address [address] [place] [address]- Care Team Providers Care Oracle Developer Name Role Phone Mike Tristan MD Primary Care Physician [phone] Encounter [facility] Date(s): 03/19/19 - 03/29/19 [facility] [address] [place] [address]- [facility] Attending Physician: Eliza Gregg Admitting Physician: AdmtrEliza Referring Physician: Admtr, ArAntonina Allergies, Adverse Reactions, Alerts Substance Reaction Severity [...] Gm, Refills 11, Tot. Refills 11, Maintenance, 10/24/18 12:22:16 EDT, Aerosol, Route to Pharmacy Electronically, NCPDP_[id number], [address] Start Date: 10/24/18 Status: Ordered amLODIPine 5 mg oral tablet 5 mg, 1, tablet, By Mouth, Daily, # 90 tablet, Refills 3, Tot. Refills 3, Soft Stop, 02/10/19 13:40:35 EDT, Route to Pharmacy Electronically, NCPDP_[id number], [facility] [address] [facility] Start Date: 02/10/19 Stop Date: 06/10/19 Status: Ordered aspirin 81 mg oral tablet 1 tablet = 81 mg, By Mouth, Daily, PER DR TRISTAN, # 30 tablet, 11 Refills, Maintenance, 04/18/18 8:55:20 EST, Tablet Start Date: 04/18/18 Status: Ordered Combivent Respimat 20 mcg-100 mcg/inh inhalation aerosol 1 puffs, Inhalation, 4 times a day, PRN Wheezing/Shortness of Breath, # 1 each, 0 Refills, Maintenance, 03/19/19 15:31:15 EST, Aerosol, 1 puffs Inhalation 4 times a day,PRN:Wheezing/Shortness of Breath, 174, cm, 03/19/19 14:40:19 EST, Height, 57, kg,... Start Date: 03/19/19 Status: Ordered dental procedure dental procedure, See Instructions, # 1 each, Refills 0, Tot. Refills 0, Maintenance, ok to continue plavix and aspirin and have 2 teeth extracted on 01/03/18 FAX [phone], 12/31/17 15:14:53 EDT, Compound Start Date: 12/31/17 Status: Ordered ENSURE CHOCOLATE ENSURE CHOCOLATE, See Instructions, # 1 box, Refills 0, Tot. Refills 0, Maintenance, drink 2 ensuredaily dx code: r63.0 R63.4 , 08/31/17 9:38:21 EDT, Compound Start Date: 08/31/17 Status: Ordered Flomax 0.4 mg oral capsule 0.4 mg, 1, capsule, By Mouth, Daily, # 30 capsule, Refills 11, Tot. Refills 11, Maintenance, 04/18/18 8:57:12 EST, [id number] [address] Start Date: 04/18/18 Status: Ordered hydrocortisone 1% topical cream 1 [...] Status: Ordered meclizine 25 mg oral tablet See Instructions, # 21 tablet, take 1 tablet by mouth three times a day for 7 days, [address] Start Date: 01/24/19 Status: Ordered metoprolol 50 mg oral tablet, extended release 50 mg, 1, tablet, By Mouth, Daily, do not crush or chew, # 30 tablet, Refills 11, Tot. Refills 11, Maintenance, 04/18/18 8:56:34 EST, Route to Pharmacy Electronically, NCP_ID-[id number], [address] Start Date: 04/18/18 Status: Ordered Nicoderm C-Q Clear 14 mg/24 hr transdermal film, extended release 1 patch, Topically, Daily, # 30 patch, 0 Refills, Maintenance, 02/05/18 9:38:54 EDT, Patch Start Date: 02/05/18 Status: Ordered nicotine 4 mg oral transmucosal lozenge 1 lozenge = 4 mg, By Mouth, Every hour, # 189 lozenge, 1 Refills, Maintenance, 11/14/18 6:49:56 EDT, 1 lozenge By Mouth Every hour Start Date: 11/14/18 Status: Ordered Plavix 75 mg oral tablet 75 mg, 1, tablet, By Mouth, Daily, # 30 tablet, Refills 11, Tot. Refills 11, Maintenance, 04/18/18 8:55:27 EST, Route to Pharmacy Electronically, NCP_ID- [id number], [facility] [address] [facility] Start Date: 04/18/18 Status: Ordered pravastatin 40 mg oral tablet 1 tablet = 40 mg, By Mouth, Daily, # 30 tablet, 11 Refills, Maintenance, 02/10/19 13:20:48 EDT, Tablet Start Date: 02/10/19 Status: Ordered Singulair 10 mg oral tablet 10 mg, 1, tablet, By Mouth, Daily at bedtime, PER ARPIT DUNN, # 30 tablet, Refills 11, Tot. Refills 11, Maintenance, 04/18/18 8:56:29 EST, Route to Pharmacy Electronically, NCPDP_ID-[id number], [facility] [address] [facility] Start Date: 04/18/18 Status: Ordered Spiriva HandiHaler 18 mcg Inhalation Capsule 1 capsule = 18 mcg, Inhalation, Daily, # 30 capsule, 5 Refills, Maintenance, 10/08/18 10:46:31 EDT,1 capsule Inhalation Daily Start Date: 10/08/18 Status: Ordered traZODone 50 mg oral tablet 100 mg, 2, tablet, By Mouth, Daily at bedtime, # 60 tablet, Refills 11, Tot. Refills 11, Maintenance, 04/18/18 8:57:13 EST, Route to Pharmacy Electronically, NCPDP_[id number], [facility] - [address] [facility] Start Date: 04/18/18 Status: Ordered Tylenol Extra Strength 500 mg oral tablet See Instructions, PRN for pain, 1 or 2 tablet By Mouth 3 times a day PER DR TRISTAN, # 100 tablet, 11 Refills, Maintenance, 08/20/18 16:21:19 EDT, Tablet Start Date: 08/20/18 Status: Ordered ZyrTEC 10 mg oral tablet 1 tablet = 10 mg, By Mouth, Daily, # 30 tablet, 11 Refills, Maintenance, 04/18/18 8:55:26 EST, Tablet Start Date: 04/18/18 Status: Ordered Problem List Condition Effective Dates [...] History Social History Type Response Smoking Status Current every day yeimi murphy; Type: Cigarettes entered on: 10/26/15 Sex
--- OUTSIDE RECORDS SUMMARY | 2022-09-19 20:55 | XMS_ITS | Continuity of Care Document ---
Author Name Unknown Organization [facility] Trevor lt Address [address] [place] [address]- Care Team Providers Care Embedded Developer Name Role Phone Mike Kruse MD Primary Care Physician [phone] Encounter [facility] [place] [place] Date(s): 11/28/21 - 01/08/22 [facility] Adult [address] [place] [address]- Attending Physician: Mike Kruse MD Allergies, Adverse [...] 5 Refills, Maintenance, 10/28/21 14:18:00 EDT, Solution, [facility]/pharmacy #[id number], 165, cm, 10/28/21 4:51:00 EDT, Height, 60.5, kg, 10/26/21 13:16:00 EDT, Dry Weight Start Date: 10/28/21 Status: Ordered amLODIPine 5 mg oral tablet 5 mg, 1, tablet, By Mouth, Daily, # 90 tablet, Refills 1, Tot. Refills 1, Soft Stop, 10/19/21 9:10:00 EDT, Route to Pharmacy Electronically, [facility]/pharmacy #[id number], 180, cm, 09/26/21 10:49:00 EDT, Height, 77, kg, 04/20/21 15:47:00 EST, Dry Weight Start Date: 10/19/21 Status: Ordered Aspirin Low Dose 81 mg oral delayed release tablet 1 tablet, By Mouth, Daily, # 30 tablet, 11 Refills, 10/19/21 9:10:00 EDT, [facility]/pharmacy #[id number], 180, cm, 09/26/21 10:49:00 EDT, [...] opioid drug. Start Date: 12/16/21 Status: Ordered Combivent Respimat 20 mcg-100 mcg/inh inhalation aerosol 1 puffs, Inhalation, 4 times a day, PRN NEEDED FOR WHEEZE OR SHORTNESS OF BREATH, # 4 Gm, 0 Refills, Maintenance, 12/20/21 15:24:00 EDT, [facility], 30, INHALE 1 PUFF BY MOUTH FOUR TIMESDAILY NEEDED FOR WHEEZE OR SHORTNESS OF BREATH,... Start Date: 12/20/21 Status: Ordered fluticasone 50 mcg/inh nasal spray See Instructions, USE 1 SPRAY IN EACH NOSTRIL TWICE A DAY, # 16 each, 5 Refills, Maintenance, 12/19/21 15:27:00 EDT, [facility], 30, USE 1 SPRAY IN EACH NOSTRIL TWICE A DAY, 162, cm, 12/16/21 14:39:00 EDT, Height, 59.5, kg, 12/16/21 0:28:00... Start Date: 12/19/21 Status: Ordered guaiFENesin 400 mg oral tablet 1 tablet = 400 mg, By Mouth, 4 times a day, # 120 tablet, 5 Refills, Maintenance, 10/28/21 14:19:00EDT, Tablet, [facility]/pharmacy #[id number], 165, cm, 10/28/21 4:51:00 EDT, [...] tablet, 4 Refills, Maintenance, 12/23/21 13:25:00 EDT, [facility], 162, cm, 12/16/21 14:39:00 EDT, Height, 59.5, kg, 12/16/21 0:28:00 EDT, Dry Weight Start Date: 12/23/21 Status: Ordered magnesium oxide 400 mg oral tablet 1 tablet, By Mouth, Daily, # 30 tablet, 6 Refills, Maintenance, 10/19/21 9:10:00 EDT, [facility]/pharmacy #1230, 180, cm, 09/26/21 10:49:00 EDT, Height, 77, kg, 04/20/21 15:47:00 EST, Dry Weight Start Date: 10/19/21 Stop Date: 10/19/21 Status: Ordered Metoprolol Succinate ER 50 mg oral tablet, extended release 1 tablet, By Mouth, Daily, INSTR:DO NOT CRUSH OR CHEW, # 30 tablet, 5 Refills, 10/19/21 9:10:00 EDT, [facility]/pharmacy #[id number], 180, cm, 09/26/21 10:49:00 EDT, Height, 77, kg, 04/20/21 15:47:00 EST, Dry Weight Start Date: 10/19/21 Status: Ordered MiraLax oral powder for reconstitution = 17 Gm, By Mouth, 2 times a day, dissolve in water before taking, # 527 Gm, 11 Refills, Maintenance, 10/19/21 9:10:00 EDT, REC Powder, [facility]/pharmacy #[id number], Partial fill upon patient request if the prescription is for a schedule II opioid drug., 17 Gm... Start Date: 10/19/21 Status: Ordered montelukast 10 mg oral tablet See Instructions, TAKE 1 TABLET BY MOUTH EVERY DAY AT BEDTIME, # 30 tablet, Refills 5, Maintenance,12/19/21 15:29:00 EDT, Instructions Replace Required Details, Route to Pharmacy Electronically, [facility], 162, cm, 12/16/21 14:39:00 EDT, H... Start Date: 12/19/21 Status: Ordered omeprazole 20 mg oral delayed release tablet 1 tablet = 20 mg, By Mouth, Daily, # 30 tablet, 11 Refills, Maintenance, 07/10/22 15:48:00 EDT, CR Tablet, [facility]/pharmacy #1230, Partial fill upon patient request if the prescription is for a schedule II opioid drug., 180, cm, 09/26/21 10:49:00 EDT, Hei... Start Date: 07/10/22 Stop Date: 07/05/23 Status: Ordered Plavix 75 mg oral tablet 75 mg, 1, tablet, By Mouth, Daily, # 90 tablet, Refills 1, Tot. Refills 1, Maintenance, 11/18/21 16:53:00 EDT, Route to Pharmacy Electronically, [facility]/pharmacy #1230, Partial fill upon patient request if the prescription is for a schedule II opioid drug... Start Date: 11/18/21 Status: Ordered pravastatin 40 mg oral tablet See Instructions, TAKE 1 TABLET BY MOUTH EVERY DAY, # 30 tablet, 5 Refills, Maintenance, 12/19/21 15:29:00 EDT, [facility], 162, cm, 12/16/21 14:39:00 EDT, Height, 59.5, kg, 12/16/21 0:28:00 EDT, Dry Weight Start Date: 12/19/21 Status: Ordered predniSONE 10 mg oral tablet See Instructions, 4 tab po daily for 2 days, followed by 3 tab po daily for 3 days, followed by 2 tab po daily for 2 days followed by 1 tab po daily for 1 day, # 22 tablet, 0 Refills, Maintenance, 12/13/21 12:37:00 EDT, Tablet, [facility]... Start Date: 12/13/21 Status: Ordered ProAir HFA [...] 12/13/21 12:40:00 EDT, Route to Pharmacy Electronically, [id number], [facility] 3,162, cm, 12/13/21 4:46:00 EDT, Height, 60.3, kg, 08... Start Date: 12/13/21 Status: Ordered riboflavin 400 mg oral capsule 1 capsule = 400 mg, By Mouth, Daily, # 30 capsule, 5 Refills, Maintenance, 10/19/21 9:10:00 EDT, [facility]/pharmacy #1230, Partial fill upon patient request if the prescription is for a schedule II opioid drug., 180, cm, 09/26/21 10:49:00 EDT, Height, 77, k... Start Date: 10/19/21 Status: Ordered SEROquel 25 mg oral tablet 25 mg, 1, tablet, By Mouth, Daily at bedtime, # 30 tablet, Refills 5, Tot. Refills 5, Maintenance, 10/28/21 14:23:00 EDT, Route to Pharmacy Electronically, [facility]/pharmacy #1230, 165, cm, 10/28/21 4:51:00 EDT, Height, 60.5, kg, 10/26/21 13:16:00 EDT, Dry... Start Date: 10/28/21 Status: Ordered Spiriva Respimat 1.25 mcg/inh inhalation aerosol 2 puffs, Inhalation, Daily, # 4 Gm, 5 Refills, 10/19/21 9:10:00 EDT, [facility]/pharmacy #1230, 180, cm, 09/26/21 10:49:00 EDT, Height, 77, kg, 04/20/21 15:47:00 EST, Dry Weight Start Date: 10/19/21 Status: Ordered Symbicort 160mcg/4.5mcg Inhaler 2, puffs, Inhalation, 2 times a day, # 10.2 Gm, Refills 10, Tot. Refills 10, 10/19/21 9:10:00 EDT, Route to Pharmacy Electronically, [id number], [facility]/pharmacy #1230, 180, cm,09/26/21 10:49:00 EDT, Height, 77, kg, 04/20/21 15:... Start Date: 10/19/21 Status: Ordered tamsulosin 0.4 mg oral capsule 1, capsule, By Mouth, Daily, # 30 capsule, Refills 4, Tot. Refills 4, Maintenance, 10/19/21 9:10:00EDT, Route to Pharmacy Electronically, [facility]/pharmacy #1230, 180, cm, 09/26/21 10:49:00 EDT, Height, 77, kg, 04/20/21 15:47:00 EST, Dry Weight Start Date: 10/19/21 Status: Ordered venlafaxine 37.5 mg oral capsule, extended release 37.5 mg, 1, capsule, By Mouth, Daily, # 30 capsule, Refills 1, Tot. Refills 1, Maintenance, 10/19/21 9:10:00 EDT, Route to Pharmacy Electronically, [facility]/pharmacy #[id number], Partial fill upon patient request [...] Personnel Name: Mike Kruse MD Address: [address] [place] [id number]
--- OUTSIDE RECORDS SUMMARY | 2022-09-19 20:56 | XMS_ITS | Continuity of Care Document ---
Author Name Unknown Organization [facility] Trevor lt Address [address] [place] [id number]- Care Team Providers Care Talent Advisor Name Role Phone Aixa BERNABE, Mike Bennett Primary Care Physician [phone] Encounter [facility] [place] Date(s): 06/22/20 - 06/29/20 [facility] Adult [address] [place] [address]- Encounter Diagnosis Anxiety(Discharge Diagnosis) - 06/22/20 Difficulty sleeping(Discharge Diagnosis) - 06/22/20 Attending Physician: Mirtha HOOD, Rachell Bennett Referring Physician: Joel Shannon MD Allergies, Adverse Reactions, Alerts Substance Reaction [...] 05/05/20 13:45:00 EST, Route to Pharmacy Electronically, [facility], 174, cm, 03/01/20 11:26:00 EST, Height, 57, kg, 03/19/19 14:07:00 EST, Dry Weight Start Date: 05/05/20 Status: Ordered aspirin 81 mg oral tablet 1 tablet = 81 mg, By Mouth, Daily, PER DR TRISTAN, # 30 tablet, 5 Refills, Maintenance, 10/13/19 13:42:00 EDT, Tablet, [facility], 174, cm, 10/01/19 13:58:00 EDT, Height, [...] Gm, 11 Refills, Maintenance, 05/07/20 10:33:00 EST, [facility], 30, 1 puffs Inhalation 4 times [...] Maintenance, 04/27/2113:59:00 EST, Route to Pharmacy Electronically, [facility], 174, cm, 03/01/20 11:26:00 EST, Height, 57, kg, 03/19/19 14:07:00 EST, Dry Weight Start Date: 04/27/20 Status: Ordered fluticasone 50 mcg/inh nasal spray See Instructions, INSTILL 1 SPRAY INTO EACH NOSTRIL TWICE DAILY, # 16 Gm, 2 Refills, Maintenance, [facility], 30, INSTILL 1 SPRAY INTO EACH [...] tablet, 0 Refills, Maintenance, 05/06/20 8:04:00 EST, [facility], 174, cm, 03/01/20 11:26:00 EST, Height, 57, kg, 03/19/19 14:07:00 EST, Dry Weight Start Date: 05/06/20 Status: Ordered metoprolol 50 mg oral tablet, extended release 50 mg, 1, tablet, By Mouth, Daily, do not crush or chew, # 30 tablet, Refills 2, Tot. Refills 2, Maintenance, 10/14/19 8:46:00 EDT, Route to Pharmacy Electronically, [facility], 174, cm, 10/01/19 13:58:00 EDT, Height, 57, kg, 03/19/19 14:07:... Start Date: 10/14/19 Status: Ordered Nasacort Allergy 24HR 55 mcg/inh nasal spray 2 sprays, Nares, Both, Daily, # 3 each, 0 Refills, Maintenance, 01/08/20 14:50:00 EDT, [facility], 2 sprays Nares, Both Daily, 174, [...] 1 Refills, Maintenance, 03/23/20 10:59:00 EST, Tablet, [facility], 174, cm, 03/01/20 11:26:00 EST, Height, 57, kg, 03/19/19 14:07:00 EST, DryWeight Start Date: 03/23/20 Status: Ordered PriLOSEC OTC 20 mg oral delayed release tablet 1 tablet = 20 mg, By Mouth, Daily, # 14 tablet, 0 Refills, Maintenance, 06/08/20 10:27:00 EST, EC Tablet, [facility], Partial fill upon [...] 05/05/20 13:42:00 EST, Route to Pharmacy Electronically, [facility], 174, cm, 11/16/20 11:26:00 EST, Height, 57, kg, 12... Start [...] 13:51:00 EST, Aerosol, Route to Pharmacy Electronically, [id number], [facility], 174,cm, 05/07/20 10:13:00 EST, Height, 57, kg, 03/19/19... Start Date: 05/25/20 Status: Ordered traZODone 50 mg oral tablet 100 mg, 2, tablet, By Mouth, Daily at bedtime, # 60 tablet, Refills 5, Tot. Refills 5, Maintenance,03/08/20 9:08:00 EST, Route to Pharmacy Electronically, [facility], 174, cm, 03/01/20 11:26:00 EST, Height, 57, kg, 03/19/19 14:07:00 EST, . Start Date: 03/08/20 Status: Ordered Tylenol Extra Strength 500 mg oral tablet See Instructions, PRN for pain, 1 or 2 tablet By Mouth 3 times a day PER DR TRISTAN, # 100 tablet, 11 Refills, Maintenance, 06/08/20 10:22:00 EST, Tablet, [facility], 174, cm, 06/08/20 9:48:00 EST, Height, 57, kg, 03/19/19 14:07:00 EST, Dry Weight Start Date: 06/08/20 Status: Ordered ZyrTEC 10 mg oral tablet 1 tablet = 10 mg, By Mouth, Daily, # 30 tablet, 5 Refills, Maintenance, 03/08/20 8:02:00 EST, Tablet, [facility], 174, cm, 03/01/20 11:26:00 EST, Height, [...] Effective Dates Health Status Clinical Service Informant Anxiety Discharge Diagnosis 06/22/20 Difficulty sleeping Discharge Diagnosis 06/22/20 Vital Signs Most recent to oldest [Reference Range]: 1 Height 174 cm (06/22/20 2:37 PM) Social History Social History Type Response Smoking Status 5-9 cigarettes (betw een 1/4 to 1/2 pack)/day in last 30 days entered on: 05/26/19 Sex
--- OUTSIDE RECORDS SUMMARY | 2022-09-19 20:56 | XMS_ITS | Continuity of Care Document ---
Author Name Unknown Organization [facility] Trevor lt Address [address] [place] [address]- Care Team Providers Care Manager Automotive Name Role Phone Mike Kruse MD Primary Care Physician Encounter [facility] Date(s): 06/08/22 - 07/08/22 [facility] Adult [address] [place] [address]- Attending Physician: Admtr, Ar8 Admitting Physician: Admtr, Ar8 Referring Physician: Admtr, Ar8 Allergies, Adverse Reactions, Alerts Substance Reaction Severity Status lisinopril Atenolol Trisha norvegensis Active cloNIDine Active Immunizations Given and Recorded Vaccine Date Status Refusal Reason [id number] 12y+ bivalent booster vax 1 01/20/22 Given [...] Comment: [facility] [place] [id number] 2Location History: [facility] 3Result Comment: [11/22/2016] [facility] 4Result Comment: [03/20/2016] [facility] Medications acetaminophen 325 mg oral tablet 650 mg, 2, tablet, By Mouth, Every 4 hours, PRN, # 30 tablet, Refills 0, Tot. Refills 0, Maintenance, Pain , Mild, 02/21/22 15:17:00 EST, Route to Pharmacy Electronically, [facility], Partial fill upon patient request if the prescription... Start Date: 02/21/22 Status: Ordered amLODIPine 5 mg oral tablet 1 tablet, By Mouth, Daily, # 90 tablet, 1 Refills, Maintenance, 02/09/22 12:58:00 EDT, [facility], 163, cm, 02/07/22 18:18:00 EDT, Height, 60, kg, 02/07/22 15:54:00 EDT, Dry Weight Start Date: 02/09/22 Status: Ordered Aspirin Low Dose 81 mg oral delayed release tablet 1 tablet, By Mouth, Daily, # 30 tablet, 11 Refills, 10/19/21 9:10:00 EDT, [facility]/pharmacy #1230, 180, cm, 09/26/21 10:49:00 [...] 11 Refills, Maintenance, 04/25/22 10:31:00 EST, Tablet, [facility]/pharmacy #0373, Partial fill upon patient request if the prescription is for a schedule II opioid drug., 163, cm, 03/30/22 10:35:00 EST, Height, 60, kg,... Start Date: 04/25/22 Status: Ordered clopidogrel 75 mg oral tablet 1, tablet, By Mouth, Daily, # 90 tablet, Refills 1, Maintenance, 05/09/22 14:00:00 EST, Route to Pharmacy Electronically, [facility], 163, cm, 03/30/22 10:35:00 EST, Height, 60, kg, 02/07/22 15:54:00 EDT, Dry Weight Start Date: 05/09/22 Status: Ordered fluticasone 50 mcg/inh nasal spray See Instructions, SPRAY 1 SPRAY INTO EACH NOSTRIL TWICE A DAY, # 48 mL, 1 Refills, Maintenance, 04/25/22 18:01:00 EST, [facility]/pharmacy #0373, 90, SPRAY 1 SPRAY INTO EACH NOSTRIL TWICE A DAY, 163, cm, 03/30/22 10:35:00 EST, Height, 60, kg, 02/07/22 15:54:... Start Date: 04/25/22 Status: Ordered guaiFENesin 400 mg oral tablet 1 tablet = 400 mg, By Mouth, 4 times a day, # 120 tablet, 5 Refills, Maintenance, 10/28/21 14:19:00EDT, Tablet, [facility]/pharmacy #1230, 165, cm, 10/28/21 4:51:00 [...] tablet, 3 Refills, Maintenance, 04/26/22 9:42:00 EST, [facility] 418[facility], 163, cm, 03/30/22 10:35:00 EST, Height, 60, kg, 02/07/22 15:54:00 EDT, Dry Weight Start Date: 04/26/22 Status: Ordered magnesium oxide 400 mg oral tablet 1 tablet, By Mouth, Daily, # 30 tablet, 6 Refills, Maintenance, 10/19/21 9:10:00 EDT, [facility]/pharmacy #1230, 180, cm, 09/26/21 10:49:00 EDT, Height, 77, kg, 04/20/21 15:47:00 EST, Dry Weight Start Date: 10/19/21 Stop Date: 10/19/21 Status: Ordered Metoprolol Succinate ER 50 mg oral tablet, extended release See Instructions, 1 TABLET BY MOUTH DAILY,INSTR:INSTR:DO NOT CRUSH OR CHEW, # 90 tablet, 1 Refills,Maintenance, 04/25/22 18:03:00 EST, [facility]/pharmacy #0373, 163, cm, 03/30/22 10:35:00 EST, Height, 60,kg, 02/07/22 15:54:00 EDT, Dry Weight Start Date: 04/25/22 Status: Ordered MiraLax oral powder for reconstitution = 17 Gm, By Mouth, 2 times a day, dissolve in water before taking, # 527 Gm, 11 Refills, Maintenance, 10/19/21 9:10:00 EDT, REC Powder, [facility]/pharmacy #1230, Partial fill upon patient [...] 03/15/22 15:34:00 EST, Route to Pharmacy Electronically, [facility]/pharmacy #0373, Partial fill upon patient request if the prescription is for a schedule II... Start Date: 03/15/22 Status: Ordered omeprazole 20 mg oral delayed release tablet 1 tablet = 20 mg, By Mouth, Daily, # 30 tablet, 11 Refills, Maintenance, 07/10/22 15:48:00 EDT, CR Tablet, [facility]/pharmacy #1230, Partial fill upon patient [...] 02/21/22 15:17:00 EST, Route to Pharmacy Electronically, [facility], Partial fill upon patient request if [...] Refills, Maintenance, 05/28/22 10:29:00 EST, [facility], 163, cm, 03/30/22 10:35:00 EST, Height, 60, kg, 02/07/22 15:54:00 EDT, Dry Weight Start Date: 05/28/22 Status: Ordered riboflavin 400 mg oral capsule 1 capsule = 400 mg, By Mouth, Daily, # 30 capsule, 5 Refills, Maintenance, 06/01/22 12:01:00 EST, [facility]/pharmacy #0373, Partial fill upon patient request if the prescription is for a schedule II opioiddrug., 163, cm, 03/30/22 10:35:00 EST, Height, 60,... Start Date: 06/01/22 Status: Ordered SEROquel 25 mg oral tablet 25 mg, 1, tablet, By Mouth, Daily at bedtime, # 30 tablet, Refills 5, Tot. Refills 5, Maintenance, 10/28/21 14:23:00 EDT, Route to Pharmacy Electronically, [facility]/pharmacy #1230, 165, cm, 10/28/21 4:51:00 EDT, Height, 60.5, kg, 10/26/21 13:16:00 EDT, Dry... Start Date: 10/28/21 Status: Ordered Spiriva Respimat 1.25 mcg/inh inhalation aerosol 2 puffs, Inhalation, Daily, # 4 mL, 3 Refills, Maintenance, 06/28/22 8:12:00 EDT, [facility], 163, cm, 06/02/22 12:59:00 EST, Height, 60, kg, 02/07/22 15:54:00 EDT, Dry Weight Start Date: 06/28/22 Status: Ordered Symbicort 160mcg/4.5mcg Inhaler 2, puffs, Inhalation, 2 times a day, # 10.2 Gm, Refills 10, Tot. Refills 10, 10/19/21 9:10:00 EDT, Route to Pharmacy Electronically, [id number], [facility]/pharmacy #1230, 180, cm,09/26/21 10:49:00 EDT, Height, 77, kg, 04/20/21 15:... Start Date: 10/19/21 Status: Ordered tamsulosin 0.4 mg oral capsule 1, capsule, By Mouth, Daily, # 30 capsule, Refills 11, Tot. Refills 11, Maintenance, 04/25/22 9:53:00 EST, Route to Pharmacy Electronically, [facility]/pharmacy #0373, 163, cm, 03/30/22 10:35:00 EST, Height, 60, kg, 02/07/22 15:54:00 EDT, Dry Weight Start Date: 04/25/22 Status: Ordered traZODone 50 mg oral tablet 2, tablet, By Mouth, Daily at bedtime, # 60 tablet, Refills 3, Maintenance, 06/28/22 8:12:00 EDT, Route to Pharmacy Electronically, [facility] 25738, 163, cm, 06/02/22 12:59:00 EST, Height, 60, kg, 02/07/22 15:54:00 EDT, Dry Weight Start Date: 06/28/22 Status: Ordered venlafaxine 37.5 mg oral capsule, extended release 1 capsule, By Mouth, Daily, # 30 capsule, 1 Refills, Maintenance, 05/29/22 11:48:00 EST, [facility], 163, cm, 03/30/22 10:35:00 EST, Height, 60, kg, 02/07/22 15:54:00 EDT, Dry Weight Start Date: 05/29/22 Status: Ordered Ventolin HFA 108 mcg/inh inhalation aerosol with adapter 2 puffs, Inhalation, Every 4 hours, PRN NEEDED FOR WHEEZING, # 18 each, 11 Refills, Maintenance,04/26/22 9:42:00 EST, [facility], 163, cm, 03/30/22 10:35:00 EST, Height, 60, [...] Unknown 03/13/26 Unknown Unknown Active Un known Note * Event Display: Laboratory Result Scanned Authored Date: * Event Display: Laboratory Result Scanned Authored Date: * Event Display: Non BH Lab Results Authored Date: * Ilda Rdz RN: PERFORM, SIGN, VERIFY Event Display: Case Management Discharge Plan Authored Date: [id number] Patient: GERBER GONZALEZ Age: 58 years Sex: [...] Is date appropriate: declined. * Event Display: EKG Non BH Authored Date: * Event Display: Cardiology Office Note, Non-BH Authored Date: * Ilda Rdz: PERFORM, SIGN, VERIFY Event Display: Case Management Discharge Plan Authored Date: [id number] Patient: GERBER GONZALEZ Age: 58 years Sex: [...] hospital (ED), how are you feeling? [place] [facility] [place] breath blacked out was given breathing treatments and IV K levels were low told him to stop losartan and buspirone is homeless , living in a tent he has NO one no ride no one to help him he left him apartment due to his GF doing drugs and he applied for housing in [place], waiting taking it day by day Please tell me the problem or condition that brought you to the hospital (ED)? SOB Do you know what to do in case of an emergency? yes Were you given any prescriptions to fill? No Do you have an appointment already scheduled with your PCP? Yes Is date appropriate: sunday. * Event Display: X-Ray Shoulder, Non- BH Authored Date: * Event Display: X-Ray Chest, Non- BH Authored Date: EKG study * Event Display: EKG Authored Date: * Event Display: EKG Authored Date: XR Chest Views * Event Display: X-Ray Chest Authored Date: Patient Care team information Care Team Personnel Name: Ana West RN Position: S RN Member Role: Primary Care Nurse Name: Odalys Orozco RN Position: S RN Member Role: Primary Care Nurse Name: Mike Kruse MD Position: [facility] Primary Care Physician Member Role: PCP Address: Address: [address] [place] [address]- Name: Maryam Valenzuela RN Position: S RN [...] Care Nurse Name: Marguerite Florentino RN Position: [facility] RN Member Role: Primary Care Nurse Care Team Related Persons Name: ENA SOTO Address: home [address] [place] [id number] Name: ELISA TOMPKINS Address: [place] [address] Name: JOSE RAFAEL LI
--- OUTSIDE RECORDS SUMMARY | 2022-09-19 20:56 | XMS_ITS | Continuity of Care Document ---
Author Name Unknown Organization [facility] Trevor lt Address [address] [place] [address]- Care Team Providers Care Bobbin Dumper Name Role Phone Mike Kruse MD Primary Care Physician [phone] Encounter [facility] Date(s): 10/12/21 - 11/11/21 [facility] Adult [address] [place] [address]- Allergies, Adverse Reactions, Alerts Substance Reaction Severity [...] 5 Refills, Maintenance, 10/28/21 14:18:00 EDT, Solution, [facility]/pharmacy #1230, 165, cm, 10/28/21 4:51:00 EDT, Height, 60.5, kg, 10/26/21 13:16:00 EDT, Dry Weight Start Date: 10/28/21 Status: Ordered amLODIPine 5 mg oral tablet 5 mg, 1, tablet, By Mouth, Daily, # 90 tablet, Refills 1, Tot. Refills 1, Soft Stop, 10/19/21 9:10:00 EDT, Route to Pharmacy Electronically, [facility]/pharmacy #1230, 180, cm, 09/26/21 10:49:00 EDT, Height, 77, kg, 04/20/21 15:47:00 EST, Dry Weight Start Date: 10/19/21 Status: Ordered Aspirin Low Dose 81 mg oral delayed release tablet 1 tablet, By Mouth, Daily, # 30 tablet, 11 Refills, 10/19/21 9:10:00 EDT, [facility]/pharmacy #1230, 180, cm, 09/26/21 10:49:00 EDT, Height, 77, kg, 04/20/21 15:47:00 EST, Dry Weight Start Date: 10/19/21 Status: Ordered Dulcolax Stool Softener 100 mg oral capsule 1 capsule = 100 mg, By Mouth, 2 times a day, # 60 capsule, 11 Refills, Maintenance, 07/21/22 14:09:00 EDT, Capsule, [facility]/pharmacy #1230, Partial fill upon patient request if the prescription is for a schedule II opioid drug., 180, cm, 09/26/21 10:49:00... Start Date: 07/21/22 Stop Date: 07/16/23 Status: Ordered fluticasone 50 mcg/inh nasal spray See Instructions, USE 1 SPRAY IN EACH NOSTRIL TWICE A DAY, # 16 Gm, 5 Refills, 10/19/21 9:10:00 EDT, [facility]/pharmacy #1230, 30, USE 1 SPRAY IN EACH NOSTRIL TWICE A DAY, 180, cm, 09/26/21 10:49:00 EDT, Height, 77, kg, 04/20/21 15:47:00 EST, Dry Weight Start Date: 10/19/21 Status: Ordered guaiFENesin 100 mg/5 mL oral liquid 5 mL = 100 mg, By Mouth, Every 4 hours, PRN for cough, # 300 mL, 0 Refills, Maintenance, 10/12/21 17:43:00 EDT, Liquid, [facility]/pharmacy #1230, Partial fill upon patient request if the prescription is for a schedule II opioid drug., 180, cm, 09/26/21 10:4... Start Date: 10/12/21 Status: Ordered guaiFENesin 400 mg oral tablet 1 tablet = 400 mg, By Mouth, 4 times a day, # 120 tablet, 5 Refills, Maintenance, 10/28/21 14:19:00EDT, Tablet, [facility]/pharmacy #1230, 165, cm, 10/28/21 4:51:00 EDT, Height, 60.5, kg, 10/26/21 13:16:00EDT, Dry Weight Start Date: 10/28/21 Status: Ordered losartan 100 mg oral tablet 1 tablet, By Mouth, Daily, # 30 tablet, 5 Refills, Maintenance, 10/19/21 9:10:00 EDT, [facility]/pharmacy #1230, 180, cm, 09/26/21 10:49:00 EDT, Height, 77, kg, 04/20/21 15:47:00 EST, Dry Weight Start Date: 10/19/21 Status: Ordered magnesium oxide 400 mg oral tablet 1 tablet, By Mouth, Daily, # 30 tablet, 6 Refills, Maintenance, 10/19/21 9:10:00 EDT, [facility]/pharmacy #1230, 180, cm, 09/26/21 10:49:00 EDT, Height, 77, kg, 04/20/21 15:47:00 EST, Dry Weight Start Date: 10/19/21 Stop Date: 10/19/21 Status: Ordered Metoprolol Succinate ER 50 mg oral tablet, extended release 1 tablet, By Mouth, Daily, INSTR:DO NOT CRUSH OR CHEW, # 30 tablet, 5 Refills, 10/19/21 9:10:00 EDT, [facility]/pharmacy #1230, 180, cm, 09/26/21 10:49:00 EDT, Height, 77, kg, 04/20/21 15:47:00 EST, Dry Weight Start Date: 10/19/21 Status: Ordered MiraLax oral powder for reconstitution = 17 Gm, By Mouth, 2 times a day, dissolve in water before taking, # 527 Gm, 11 Refills, Maintenance, 10/19/21 9:10:00 EDT, REC Powder, [facility]/pharmacy #1230, Partial fill upon patient request if the prescription is for a schedule II opioid drug., 17 Gm... Start Date: 10/19/21 Status: Ordered montelukast 10 mg oral tablet 1, tablet, By Mouth, Daily at bedtime, # 30 tablet, Refills 5, Tot. Refills 5, 10/19/21 9:10:00 EDT, Route to Pharmacy Electronically, [facility]/pharmacy #1230, 180, cm, 09/26/21 10:49:00 EDT, Height, 77, kg, 04/20/21 15:47:00 EST, Dry Weight Start Date: 10/19/21 Status: Ordered omeprazole 20 mg oral delayed release tablet 1 tablet = 20 mg, By Mouth, Daily, # 30 tablet, 11 Refills, Maintenance, 07/10/22 15:48:00 EDT, CR Tablet, [facility]/pharmacy #1230, Partial fill upon patient request if the prescription is for a schedule II opioid drug., 180, cm, 09/26/21 10:49:00 EDT, Hei... Start Date: 07/10/22 Stop Date: 07/05/23 Status: Ordered pravastatin 40 mg oral tablet 1 tablet = 40 mg, By Mouth, Daily, # 90 tablet, 1 Refills, Maintenance, 10/19/21 9:10:00 EDT, Tablet, [facility]/pharmacy #1230, 180, cm, 09/26/21 10:49:00 EDT, Height, 77, kg, 04/20/21 15:47:00 EST, Dry Weight Start Date: 10/19/21 Status: Ordered predniSONE 20 mg oral tablet See Instructions, Take at 7-8 AM 2 tablet QD x 10 D, then 1 tab QD x 10 D, # 30 tablet, 0 Refills, Acute 11/17/21 12:00:00 EDT, 10/28/21 14:20:00 EDT, Tablet, [facility]/pharmacy #1230, 165, cm, 10/28/21 4:51:00 EDT, Height, 60.5, kg, 10/26/21 13:16:00 EDT,... Start Date: 10/28/21 Stop Date: 11/17/21 Status: Ordered ProAir HFA 90 mcg/inh inhalation aerosol with adapter 2, puffs, Inhalation, Every 6 hours, PRN, # 8.5 Gm, Refills 6, Tot. Refills 6, 10/19/21 9:10:00 EDT, Route to Pharmacy Electronically, [id number], [facility]/pharmacy #1230, 180, cm, 09/26/21 10:49:00 EDT, Height, 77, kg, 04/20/21 1... Start Date: 10/19/21 Status: Ordered riboflavin 400 mg oral capsule 1 capsule = 400 mg, By Mouth, Daily, # 30 capsule, 5 Refills, Maintenance, 10/19/21 9:10:00 EDT, [facility]/pharmacy #1230, Partial fill upon patient request if the prescription is for a schedule II opioid drug., 180, cm, 09/26/21 10:49:00 EDT, Height, 77, k... Start Date: 10/19/21 Status: Ordered SEROquel 25 mg oral tablet 25 mg, 1, tablet, By Mouth, Daily at bedtime, # 30 tablet, Refills 5, Tot. Refills 5, Maintenance, 10/28/21 14:23:00 EDT, Route to Pharmacy Electronically, [facility]/pharmacy #1230, 165, cm, 10/28/21 4:51:00 EDT, Height, 60.5, kg, 10/26/21 13:16:00 EDT, Dry... Start Date: 10/28/21 Status: Ordered Spiriva Respimat 1.25 mcg/inh inhalation aerosol 2 puffs, Inhalation, Daily, # 4 Gm, 5 Refills, 10/19/21 9:10:00 EDT, [facility]/pharmacy #1230, 180, cm, 09/26/21 10:49:00 EDT, Height, 77, kg, 04/20/21 15:47:00 EST, Dry Weight Start Date: 10/19/21 Status: Ordered Symbicort 160mcg/4.5mcg Inhaler 2, puffs, Inhalation, 2 times a day, # 10.2 Gm, Refills 10, Tot. Refills 10, 10/19/21 9:10:00 EDT, Route to Pharmacy Electronically, [id number], [facility]/pharmacy #1230, 180, cm,09/26/21 10:49:00 EDT, Height, 77, kg, 04/20/21 15:... Start Date: 10/19/21 Status: Ordered tamsulosin 0.4 mg oral capsule 1, capsule, By Mouth, Daily, # 30 capsule, Refills 4, Tot. Refills 4, Maintenance, 10/19/21 9:10:00EDT, Route to Pharmacy Electronically, [facility]/pharmacy #1230, 180, cm, 09/26/21 10:49:00 EDT, Height, 77, kg, 04/20/21 15:47:00 EST, Dry Weight Start Date: 10/19/21 Status: Ordered venlafaxine 37.5 mg oral capsule, extended release 37.5 mg, 1, capsule, By Mouth, Daily, # 30 capsule, Refills 1, Tot. Refills 1, Maintenance, 10/19/21 9:10:00 EDT, Route to Pharmacy Electronically, [facility]/pharmacy #1230, Partial fill upon patient request if [...]
--- OUTSIDE RECORDS SUMMARY | 2022-09-19 20:56 | XMS_ITS | Continuity of Care Document ---
Author Name Unknown Organization [facility] Trevor lt Address [address] [place] [address]- Care Team Providers Care Dip Stand Loader Name Role Phone Aixa BERNABE, Mike Bennett Primary Care Physician [phone] [facility]counter [facility] Date[facility] 04[facility]13[facility] - 05/13/21 [facility] Adult [address] [place] [address]- Allergies, Adverse Reactions, Alerts Substance Reaction Severity [...] 04/12/21 8:59:00 EST, Route to Pharmacy Electronically, [facility], 174, cm, 03/22/21 13:58:00 EST, Height Start Date: 04/12/21 Status: Ordered Aspirin Low Dose 81 mg oral delayed release tablet 1 tablet, By Mouth, Daily, # 30 tablet, 11 Refills, [facility], 180, cm, 05/03/21 9:32:00EST, Height, 77, kg, 04/20/21 15:47:00 EST, Dry Weight Start Date: 05/06/21 Status: Ordered Combivent Respimat 20 mcg-100 mcg/inh inhalation aerosol 1 puffs, Inhalation, 4 times a day, PRN NEEDED FOR WHEEZING OR SHORTNESS OF BREATH, # 4 Gm, 5 Refills, Maintenance, 05/10/21 11:08:00 EST, [facility], 30, 1 puffs Inhalation 4 times a day,PRN: NEEDED FOR WHEEZING OR SHORTNESS OF BREATH,... Start Date: 05/10/21 Status: Ordered fluticasone 50 mcg/inh nasal spray See Instructions, USE 1 SPRAY IN EACH NOSTRIL TWICE A DAY, # 16 Gm, 5 Refills, [facility], 30, USE 1 SPRAY IN EACH NOSTRIL TWICE A DAY, 180, cm, 05/03/21 9:32:00 EST, Height, 77, kg, 04/20/21 15:47:00 EST, Dry Weight Start Date: 05/10/21 Status: Ordered losartan 100 mg oral tablet 1 tablet, By Mouth, Daily, # 30 tablet, 11 Refills, Maintenance, 07/12/20 14:44:00 EDT, [facility], 174, cm, 07/12/20 14:32:00 EDT, Height, 57, kg, 03/19/19 14:07:00 EST, Dry Weight Start Date: 3/29/21 Status: Ordered metoprolol 50 mg oral tablet, extended release 50 mg, 1, tablet, By Mouth, Daily, do not crush or chew, # 30 tablet, Refills 11, Tot. Refills 11, Maintenance, 07/12/20 14:44:00 EDT, Route to Pharmacy Electronically, [facility], 174, cm,07/12/20 14:32:00 EDT, Height, 57, kg, 03/19/19 14:... Start Date: 07/12/20 Status: Ordered montelukast 10 mg oral tablet 1, tablet, By Mouth, Daily at bedtime, # 30 tablet, Refills 5, Route to Pharmacy Electronically, [facility], 174, cm, 03/22/21 13:58:00 EST, Height [...] 05/17/21 10:47:00 EST, 05/03/21 10:47:00 EST, Patch, [facility], Partial fill upon patient request if the prescription is for a schedule II opioid drug., 1 patch Topically... Start Date: 05/03/21 Stop Date: 05/17/21 Status: Ordered nicotine 4 mg oral transmucosal lozenge 1 lozenge = 4 mg, By Mouth, Every hour, # 72 lozenge, 0 Refills, Acute 05/16/21 21:00:00 EST, 05/03/21 10:23:00 EST, [facility], Partial fill upon patient request if the prescription is fora schedule II opioid drug., 1 lozenge By Mouth Ever... Start Date: 05/03/21 Stop Date: 05/16/21 Status: Ordered Nicotine 7 mg/24 hour patch 1 patch, Topically, Daily, for 14 days, # 14 patch, 0 Refills, Acute 05/17/21 10:47:00 EST, 05/03/21 10:47:00 EST, Patch, [facility], Partial fill upon patient request if the prescription is for a schedule II opioid drug., 1 patch Topically... Start Date: 05/03/21 Stop Date: 05/17/21 Status: Ordered pravastatin 40 mg oral tablet 1 tablet = 40 mg, By Mouth, Daily, # 90 tablet, 1 Refills, Maintenance, 05/10/21 10:26:00 EST, Tablet, [facility], 180, cm, 05/03/21 9:32:00 EST, Height, [...] 0 Refills, Maintenance, 04/22/21 10:45:00 EST, Tablet, [facility], Partial fill upon patien... Start Date: 04/22/21 Status: Ordered ProAir HFA 90 mcg/inh inhalation aerosol with adapter 2, puffs, Inhalation, Every 6 hours, PRN, # 8.5 Gm, Refills 6, Route to Pharmacy Electronically, [id number]_[id number], [facility], 174, cm, 04/14/21 14:32:00 EST, Height Start Date: 04/18/21 Status: Ordered Remeron 15 mg oral tablet 1 tablet = 15 mg, By Mouth, Daily at bedtime, REPLACES ZOLOFT, # 30 tablet, 1 Refills, Maintenance,06/22/20 15:13:00 EST, Tablet, [facility], Partial fill upon patient request if the prescription is for a schedule II opioid drug., 174, cm,... Start Date: 06/22/20 Status: Ordered Spiriva Respimat 1.25 mcg/inh inhalation aerosol 2 puffs, Inhalation, Daily, # 4 Gm, 5 Refills, [facility], 180, cm, 05/03/21 9:32:00 EST,Height, 77, kg, 04/20/21 15:47:00 EST, Dry Weight Start Date: 05/05/21 Status: Ordered Symbicort 160mcg/4.5mcg Inhaler 2, puffs, Inhalation, 2 times a day, # 10.2 Gm, Refills 10, Route to Pharmacy Electronically, [id number]_[id number], [facility], 180, cm, 05/03/21 9:32:00 EST, Height, 77, kg, 04/20/21 15:47:00 EST, Dry Weight Start Date: 05/06/21 Status: Ordered tamsulosin 0.4 mg oral capsule 1, capsule, By Mouth, Daily, # 30 capsule, Refills 5, Route to Pharmacy Electronically, [facility], 174, cm, 03/15/21 10:16:00 EST, Height, 57, kg, 03/19/19 14:07:00 EST, Dry Weight Start Date: 03/15/21 Status: Ordered traZODone 50 mg oral tablet 100 mg, 2, tablet, By Mouth, Daily at bedtime, # 60 tablet, Refills 11, Tot. Refills 11, Maintenance, 07/12/20 14:43:00 EDT, Route to Pharmacy Electronically, [facility], 174, cm, 07/12/20 14:32:00 EDT, Height, [...] Tobacco abuse(Confirmed) Active Tubular adenoma of colon(Confirmed) 5/21/17 Active Vertigo(Confirmed) Active 1c2016 2Dr. Green 3IMPRESSION: [...]
--- OUTSIDE RECORDS SUMMARY | 2022-09-19 20:56 | XMS_ITS | Continuity of Care Document ---
Author Name Unknown Organization [facility] Trevor lt Address [address] [place] [id number]- Care Team Providers Care Stencil Printer Name Role Phone Mike Tristan MD Primary Care Physician [facility]): 05[facility]25[facility] - 06/24/20 [facility] Adult [address] [place] [address]- Allergies, Adverse Reactions, Alerts Substance Reaction Severity [...] 05/05/20 13:45:00 EST, Route to Pharmacy Electronically, [facility], 174, cm, 03/01/20 11:26:00 EST, Height, 57, kg, 03/19/19 14:07:00 EST, Dry Weight Start Date: 05/05/20 Status: Ordered aspirin 81 mg oral tablet 1 tablet = 81 mg, By Mouth, Daily, PER DR TRISTAN, # 30 tablet, 5 Refills, Maintenance, 10/13/19 13:42:00 EDT, Tablet, [facility], 174, cm, 10/01/19 13:58:00 EDT, Height, [...] Gm, 11 Refills, Maintenance, 05/07/20 10:33:00 EST, [facility], 30, 1 puffs Inhalation 4 [...] Maintenance, 04/27/2113:59:00 EST, Route to Pharmacy Electronically, [facility], 174, cm, 11/16/20 11:26:00 EST, Height, 57, kg, 03/19/19 14:07:00 EST, Dry Weight Start Date: 04/27/20 Status: Ordered fluticasone 50 mcg/inh nasal spray See Instructions, INSTILL 1 SPRAY INTO EACH NOSTRIL TWICE DAILY, # 16 Gm, 2 Refills, Maintenance, [facility], 30, INSTILL 1 SPRAY INTO EACH [...] tablet, 0 Refills, Maintenance, 05/06/20 8:04:00 EST, [facility], 174, cm, 03/01/20 11:26:00 EST, Height, 57, kg, 03/19/19 14:07:00 EST, Dry Weight Start Date: 05/06/20 Status: Ordered metoprolol 50 mg oral tablet, extended release 50 mg, 1, tablet, By Mouth, Daily, do not crush or chew, # 30 tablet, Refills 2, Tot. Refills 2, Maintenance, 10/14/19 8:46:00 EDT, Route to Pharmacy Electronically, [facility], 174, cm, 10/01/19 13:58:00 EDT, Height, 57, kg, 03/19/19 14:07:... Start Date: 10/14/19 Status: Ordered Nasacort Allergy 24HR 55 mcg/inh nasal spray 2 sprays, Nares, Both, Daily, # 3 each, 0 Refills, Maintenance, 01/08/20 14:50:00 EDT, [facility], 2 sprays Nares, Both Daily, 174, [...] 1 Refills, Maintenance, 03/23/20 10:59:00 EST, Tablet, [facility], 174, cm, 03/01/20 11:26:00 EST, Height, 57, kg, 03/19/19 14:07:00 EST, DryWeight Start Date: 03/23/20 Status: Ordered PriLOSEC OTC 20 mg oral delayed release tablet 1 tablet = 20 mg, By Mouth, Daily, # 14 tablet, 0 Refills, Maintenance, 06/08/20 10:27:00 EST, EC Tablet, [facility], Partial fill upon patient request if the prescription is for a scheduleII opioid drug., 174, cm, 06/08/20 9:48:00 EST, Hei... Start Date: 06/08/20 Stop Date: 06/22/20 Status: Ordered Remeron 15 mg oral tablet 1 tablet = 15 mg, By Mouth, Daily at bedtime, REPLACES ZOLOFT, # 30 tablet, 1 Refills, Maintenance,06/22/20 15:13:00 EST, Tablet, [facility], Partial fill upon patient request if the prescription is for a schedule II opioid drug., 174, cm,... Start Date: 06/22/20 Status: Ordered Singulair 10 mg oral tablet 10 mg, 1, tablet, By Mouth, Daily at bedtime, PER ARPIT DUNN, # 30 tablet, Refills 5, Tot. Refills 5, Maintenance, 05/05/20 13:42:00 EST, Route to Pharmacy Electronically, [facility], 174, cm, 03/01/20 11:26:00 EST, Height, 57, kg, 12... Start Date: 05/05/20 Status: Ordered Spiriva Respimat 1.25 mcg/inh inhalation aerosol 2 puffs, Inhalation, Daily, # 4 Gm, 11 Refills, Maintenance, 05/25/20 13:51:00 EST, Aerosol, [facility], Partial fill upon patient request if the prescription is for a schedule II opioid drug., 174, cm, 05/07/20 10:13:00 EST, Height, 57, kg,... Start Date: 05/25/20 Status: Ordered Symbicort 160mcg/4.5mcg Inhaler 2, puffs, Inhalation, 2 times a day, # 1 each, Refills 11, Tot. Refills 11, Maintenance, 05/25/20 13:51:00 EST, Aerosol, Route to Pharmacy Electronically, MOPDP_[id number], [facility], 174,cm, 05/07/20 10:13:00 EST, Height, 57, kg, 03/19/19... Start Date: 05/25/20 Status: Ordered traZODone 50 mg oral tablet 100 mg, 2, tablet, By Mouth, Daily at bedtime, # 60 tablet, Refills 5, Tot. Refills 5, Maintenance,03/08/20 9:08:00 EST, Route to Pharmacy Electronically, [facility], 174, cm, 03/01/20 11:26:00 EST, Height, 57, kg, 03/19/19 14:07:00 EST, .. Start Date: 03/08/20 Status: Ordered Tylenol Extra Strength 500 mg oral tablet See Instructions, PRN for pain, 1 or 2 tablet By Mouth 3 times a day PER DR TRISTAN, # 100 tablet, 11 Refills, Maintenance, 06/08/20 10:22:00 EST, Tablet, [facility], 174, cm, 06/08/20 9:48:00 EST, Height, 57, kg, 03/19/19 14:07:00 EST, Dry Weight Start Date: 06/08/20 Status: Ordered ZyrTEC 10 mg oral tablet 1 tablet = 10 mg, By Mouth, Daily, # 30 tablet, 5 Refills, Maintenance, 03/08/20 8:02:00 EST, Tablet, [facility], 174, cm, 03/01/20 11:26:00 EST, [...]
--- OUTSIDE RECORDS SUMMARY | 2022-09-19 20:56 | XMS_ITS | Continuity of Care Document ---
Author Name Unknown Organization [facility] Trevor lt Address [address] [place] [address]- Care Team Providers Care Net Applications Developer Name Role Phone Mike Tristan MD Primary Care Physician [facility] 03[facility]17[facility]21 - 04/16/21 [facility] Adult [address] [place] [address]- Allergies, Adverse Reactions, Alerts Substance Reaction Severity [...] 04/12/21 8:59:00 EST, Route to Pharmacy Electronically, [facility], 174, cm, 03/22/21 13:58:00 EST, Height Start Date: 04/12/21 Status: Ordered Aspirin Low Dose 81 mg oral delayed release tablet 1 tablet, By Mouth, Daily, # 30 tablet, 2 Refills, [facility], 174, cm, 01/14/21 15:08:00EDT, Height, 57, kg, 03/19/19 14:07:00 EST, Dry Weight Start Date: 01/25/21 Status: Ordered Combivent Respimat 20 mcg-100 mcg/inh inhalation aerosol 1 puffs, Inhalation, 4 times a day, PRN NEEDED FOR WHEEZING OR SHORTNESS OF BREATH, # 4 Gm, 11 Refills, Maintenance, 05/07/20 10:33:00 EST, [facility], 30, 1 puffs Inhalation 4 times a day,PRN: NEEDED FOR WHEEZING OR SHORTNESS OF BREATH... Start Date: 05/07/20 Status: Ordered Coricidin HBP Cough & Cold 4 mg-30 mg oral tablet 1 tablet, By Mouth, 3 times a day, PRN for cold symptoms, # 21 tablet, 0 Refills, Maintenance, 03/18/21 15:02:00 EST, Tablet, [facility], Partial fill upon patient request if the prescription is for a schedule II opioid drug., 1 tablet By Mo... Start Date: 03/18/21 Status: Ordered docusate sodium 100 mg oral capsule 1 capsule = 100 mg, By Mouth, 2 times a day, PRN as needed for constipation, # 100 capsule, 2 Refills, Maintenance, 08/17/20 14:09:00 EDT, Capsule, [facility], Partial fill upon patient request if [...] A DAY, # 16 Gm, 1 Refills, [facility], 30, USE 1 SPRAY IN EACH [...] to the... Start Date: 10/15/17 Status: Ordered levoFLOXacin 500 mg oral tablet 1 tablet = 500 mg, By Mouth, Every 24 hours, for 7 days, # 7 tablet, 0 Refills, Acute 04/21/21 16:00:00 EST, 04/14/21 16:00:00 EST, Tablet, [facility], Partial fill upon patient request if the prescription is for a schedule II opioid drug.,... Start Date: 04/14/21 Stop Date: 04/21/21 Status: Ordered loratadine 10 mg oral capsule 1 capsule = 10 mg, By Mouth, Daily, # 40 capsule, 1 Refills, Maintenance, 11/30/20 11:11:00 EDT, Capsule, [facility], Partial fill upon patient request if [...] 07/12/20 14:44:00 EDT, Route to Pharmacy Electronically, [facility], 174, cm,07/12/20 14:32:00 EDT, Height, 57, kg, 03/19/19 14:... Start Date: 07/12/20 Status: Ordered montelukast 10 mg oral tablet 1, tablet, By Mouth, Daily at bedtime, # 30 tablet, Refills 5, Route to Pharmacy Electronically, [facility], 174, cm, 03/22/21 13:58:00 EST, Height Start Date: 04/07/21 Status: Ordered Nasacort Allergy 24HR 55 mcg/inh nasal spray 2 sprays, Nares, Both, Daily, # 3 each, 0 Refills, Maintenance, 01/08/20 14:50:00 EDT, [facility], 2 sprays Nares, Both Daily, 174, cm, 01/08/20 14:29:00 EDT, Height, 57, kg, 03/19/19 14:07:00 EST, Dry Weight Start Date: 01/08/20 Status: Ordered nicotine 4 mg oral transmucosal lozenge 1 lozenge = 4 mg, By Mouth, Every hour, # 189 lozenge, 11 Refills, Maintenance, 07/12/20 14:49:00 EDT, [facility], 1 lozenge By Mouth Every hour, 174, cm, 07/12/20 14:32:00 EDT, Height, 57,kg, 03/19/19 14:07:00 EST, Dry Weight Start Date: 07/12/20 Status: Ordered omeprazole 20 mg oral enteric coated capsule 1 capsule, By Mouth, Daily, # 14 capsule, 0 Refills, Maintenance, 03/22/21 15:07:00 EST, [facility], 174, cm, 03/22/21 13:58:00 EST, Height Start Date: 03/22/21 Stop Date: 04/05/21 Status: Ordered pravastatin 40 mg oral tablet 1 tablet = 40 mg, By Mouth, Daily, # 90 tablet, 1 Refills, Maintenance, 08/24/20 15:56:00 EDT, Tablet, [facility], 174, cm, 08/17/20 13:45:00 EDT, Height, 57, kg, 03/19/19 14:07:00 EST, DryWeight Start Date: 08/24/20 Status: Ordered predniSONE 20 mg oral tablet See Instructions, 2 tablets daily for 5 days and then 1 tablet daily for 5 days, # 15 tablet, 0 Refills, Maintenance, 03/22/21 15:09:00 EST, [facility], Partial fill upon patient request ifthe prescription is for a schedule II opioid drug.,... Start Date: 03/22/21 Status: Ordered ProAir HFA 90 mcg/inh inhalation aerosol with adapter 2, puffs, Inhalation, Every 6 hours, PRN, # 8.5 Gm, Refills 0, Tot. Refills 0, Maintenance, 03/22/21 15:09:00 EST, Aerosol, Route to Pharmacy Electronically, NCPDP_[id number], [facility], 174, cm, 03/22/21 13:58:00 EST, Height Start Date: 03/22/21 Status: Ordered Remeron 15 mg oral tablet 1 tablet = 15 mg, By Mouth, Daily at bedtime, REPLACES ZOLOFT, # 30 tablet, 1 Refills, Maintenance,06/22/20 15:13:00 EST, Tablet, [facility], Partial fill upon patient request if the prescription is for a schedule II opioid drug., 174, cm,... Start Date: 06/22/20 Status: Ordered Spiriva Respimat 1.25 mcg/inh inhalation aerosol 2 puffs, Inhalation, Daily, # 4 Gm, 11 Refills, Maintenance, 05/25/20 13:51:00 EST, Aerosol, [facility], Partial fill upon patient request if the prescription is for a schedule II opioid drug., 174, cm, 05/07/20 10:13:00 EST, Height, 57, kg,... Start Date: 05/25/20 Status: Ordered Symbicort 160mcg/4.5mcg Inhaler 2, puffs, Inhalation, 2 times a day, # 1 each, Refills 11, Tot. Refills 11, Maintenance, 05/25/20 13:51:00 EST, Aerosol, Route to Pharmacy Electronically, MOPDP_[id number], [facility], 174,cm, 05/07/20 10:13:00 EST, Height, 57, kg, 03/19/19... Start Date: 05/25/20 Status: Ordered tamsulosin 0.4 mg oral capsule 1, capsule, By Mouth, Daily, # 30 capsule, Refills 5, Route to Pharmacy Electronically, [facility], 174, cm, 03/15/21 10:16:00 EST, Height, 57, kg, 03/19/19 14:07:00 EST, Dry Weight Start Date: 03/15/21 Status: Ordered traZODone 50 mg oral tablet 100 mg, 2, tablet, By Mouth, Daily at bedtime, # 60 tablet, Refills 11, Tot. Refills 11, Maintenance, 07/12/20 14:43:00 EDT, Route to Pharmacy Electronically, [facility], 174, cm, 07/12/20 14:32:00 EDT, Height, 57, kg, 03/19/19 14:07:00 EST,... Start Date: 07/12/20 Status: Ordered Tylenol Extra Strength 500 mg oral tablet See Instructions, PRN for pain, 1 or 2 tablet By Mouth 3 times a day PER DR TRISTAN, # 100 tablet, 11 Refills, Maintenance, 06/08/20 10:22:00 EST, Tablet, [facility], 174, cm, 06/08/20 9:48:00 EST, Height, [...]
--- OUTSIDE RECORDS SUMMARY | 2022-09-19 20:56 | XMS_ITS | Continuity of Care Document ---
Author Name Unknown Organization [facility] Address [address] [place] [id number]- Care Team Providers Care Xray Tech Name Role Phone Aixa BERNABE, Mike Bennett Primary Care Physician [facility]): [facility] - 11/27/21 [facility] [address] [place] [id number] Attending Physician: Eliza Gregg Admitting Physician: AdmtrEliza Referring Physician: AdmtrEliza Allergies, Adverse Reactions, Alerts Substance Reaction Severity [...] 5 Refills, Maintenance, 10/28/21 14:18:00 EDT, Solution, [facility]/pharmacy #[id number], 165, cm, 10/28/21 4:51:00 EDT, Height, 60.5, kg, 10/26/21 13:16:00 EDT, Dry Weight Start Date: 10/28/21 Status: Ordered amLODIPine 5 mg oral tablet 5 mg, 1, tablet, By Mouth, Daily, # 90 tablet, Refills 1, Tot. Refills 1, Soft Stop, 10/19/21 9:10:00 EDT, Route to Pharmacy Electronically, [facility]/pharmacy #[id number], 180, cm, 09/26/21 10:49:00 EDT, Height, 77, kg, 04/20/21 15:47:00 EST, Dry Weight Start Date: 10/19/21 Status: Ordered Aspirin Low Dose 81 mg oral delayed release tablet 1 tablet, By Mouth, Daily, # 30 tablet, 11 Refills, 10/19/21 9:10:00 EDT, [facility]/pharmacy #[id number], 180, cm, 09/26/21 10:49:00 EDT, Height, 77, kg, 04/20/21 15:47:00 EST, Dry Weight Start Date: 10/19/21 Status: Ordered Dulcolax Stool Softener 100 mg oral capsule 1 capsule = 100 mg, By Mouth, 2 times a day, # 60 capsule, 11 Refills, Maintenance, 07/21/22 14:09:00 EDT, Capsule, [facility]/pharmacy #[id number], Partial fill upon patient request if the prescription is for a schedule II opioid drug., 180, cm, 09/26/21 10:49:00... Start Date: 07/21/22 Stop Date: 07/16/23 Status: Ordered fluticasone 50 mcg/inh nasal spray See Instructions, USE 1 SPRAY IN EACH NOSTRIL TWICE A DAY, # 16 Gm, 5 Refills, 10/19/21 9:10:00 EDT, [facility]/pharmacy #[id number], 30, USE 1 SPRAY IN EACH NOSTRIL TWICE A DAY, 180, cm, 09/26/21 10:49:00 EDT, Height, 77, kg, 04/20/21 15:47:00 EST, Dry Weight Start Date: 10/19/21 Status: Ordered guaiFENesin 100 mg/5 mL oral liquid 5 mL = 100 mg, By Mouth, Every 4 hours, PRN for cough, # 300 mL, 0 Refills, Maintenance, 10/12/21 17:43:00 EDT, Liquid, [facility]/pharmacy #[id number], Partial fill upon patient request if the prescription is for a schedule II opioid drug., 180, cm, 09/26/21 10:4... Start Date: 10/12/21 Status: Ordered guaiFENesin 400 mg oral tablet 1 tablet = 400 mg, By Mouth, 4 times a day, # 120 tablet, 5 Refills, Maintenance, 10/28/21 14:19:00EDT, Tablet, [facility]/pharmacy #[id number], 165, cm, 10/28/21 4:51:00 EDT, [...] 30 tablet, 5 Refills, 10/19/21 9:10:00 EDT, [facility]/pharmacy #[id number], 180, cm, 09/26/21 10:49:00 EDT, Height, 77, kg, 04/20/21 15:47:00 EST, Dry Weight Start Date: 10/19/21 Status: Ordered MiraLax oral powder for reconstitution = 17 Gm, By Mouth, 2 times a day, dissolve in water before taking, # 527 Gm, 11 Refills, Maintenance, 10/19/21 9:10:00 EDT, REC Powder, [facility]/pharmacy #[id number], Partial fill upon patient request if the prescription is for a schedule II opioid drug., 17 Gm... Start Date: 10/19/21 Status: Ordered montelukast 10 mg oral tablet 1, tablet, By Mouth, Daily at bedtime, # 30 tablet, Refills 5, Tot. Refills 5, 10/19/21 9:10:00 EDT, Route to Pharmacy Electronically, [facility]/pharmacy #[id number], 180, cm, 09/26/21 10:49:00 EDT, Height, 77, kg, 04/20/21 15:47:00 EST, Dry Weight Start Date: 10/19/21 Status: Ordered omeprazole 20 mg oral delayed release tablet 1 tablet = 20 mg, By Mouth, Daily, # 30 tablet, 11 Refills, Maintenance, 07/10/22 15:48:00 EDT, CR Tablet, [facility]/pharmacy #[id number], Partial fill upon patient request if the prescription is for a schedule II opioid drug., 180, cm, 09/26/21 10:49:00 EDT, Hei... Start Date: 07/10/22 Stop Date: 07/05/23 Status: Ordered Plavix 75 mg oral tablet 75 mg, 1, tablet, By Mouth, Daily, # 90 tablet, Refills 1, Tot. Refills 1, Maintenance, 11/18/21 16:53:00 EDT, Route to Pharmacy Electronically, [facility]/pharmacy #[id number], Partial fill upon patient request if the prescription is for a schedule II opioid drug... Start Date: 11/18/21 Status: Ordered pravastatin 40 mg oral tablet 1 tablet = 40 mg, By Mouth, Daily, # 90 tablet, 1 Refills, Maintenance, 10/19/21 9:10:00 EDT, Tablet, [facility]/pharmacy #1230, 180, cm, 09/26/21 10:49:00 EDT, Height, 77, kg, 04/20/21 15:47:00 EST, Dry Weight Start Date: 10/19/21 Status: Ordered ProAir HFA 90 mcg/inh inhalation aerosol with adapter 2, puffs, Inhalation, Every 6 hours, PRN, # 8.5 Gm, Refills 6, Tot. Refills 6, 10/19/21 9:10:00 EDT, Route to Pharmacy Electronically, [id number], [facility]/pharmacy #[id number], 180, cm, 09/26/21 10:49:00 EDT, Height, 77, kg, 04/20/21 1... Start Date: 10/19/21 Status: Ordered riboflavin 400 mg oral capsule 1 capsule = 400 mg, By Mouth, Daily, # 30 capsule, 5 Refills, Maintenance, 10/19/21 9:10:00 EDT, [facility]/pharmacy #[id number], Partial fill upon patient request if the prescription is for a schedule II opioid drug., 180, cm, 09/26/21 10:49:00 EDT, Height, 77, k... Start Date: 10/19/21 Status: Ordered SEROquel 25 mg oral tablet 25 mg, 1, tablet, By Mouth, Daily at bedtime, # 30 tablet, Refills 5, Tot. Refills 5, Maintenance, 10/28/21 14:23:00 EDT, Route to Pharmacy Electronically, [facility]/pharmacy #[id number], 165, cm, 10/28/21 4:51:00 EDT, Height, 60.5, kg, 10/26/21 13:16:00 EDT, Dry... Start Date: 10/28/21 Status: Ordered Spiriva Respimat 1.25 mcg/inh inhalation aerosol 2 puffs, Inhalation, Daily, # 4 Gm, 5 Refills, 10/19/21 9:10:00 EDT, [facility]/pharmacy #[id number], 180, cm, 09/26/21 10:49:00 EDT, Height, 77, kg, 04/20/21 15:47:00 EST, Dry Weight Start Date: 10/19/21 Status: Ordered Symbicort 160mcg/4.5mcg Inhaler 2, puffs, Inhalation, 2 times a day, # 10.2 Gm, Refills 10, Tot. Refills 10, 10/19/21 9:10:00 EDT, Route to Pharmacy Electronically, [id number], [facility]/pharmacy #[id number], 180, cm,09/26/21 10:49:00 EDT, Height, 77, kg, 04/20/21 15:... Start Date: 10/19/21 Status: Ordered tamsulosin 0.4 mg oral capsule 1, capsule, By Mouth, Daily, # 30 capsule, Refills 4, Tot. Refills 4, Maintenance, 10/19/21 9:10:00EDT, Route to Pharmacy Electronically, [facility]/pharmacy #[id number], 180, cm, 09/26/21 10:49:00 EDT, Height, 77, kg, 04/20/21 15:47:00 EST, Dry Weight Start Date: 10/19/21 Status: Ordered venlafaxine 37.5 mg oral capsule, extended release 37.5 mg, 1, capsule, By Mouth, Daily, # 30 capsule, Refills 1, Tot. Refills 1, Maintenance, 10/19/21 9:10:00 EDT, Route to Pharmacy Electronically, [facility]/pharmacy #[id number], Partial fill upon patient request [...]
--- OUTSIDE RECORDS SUMMARY | 2022-09-19 20:56 | XMS_ITS | Continuity of Care Document ---
Author Name Unknown Organization [facility] Trevor lt Address [address] [place] [address]- Care Team Providers Care Neckties Painter Name Role Phone Mike Tristan MD Primary Care Physician Encounter [facility] Date(s): 07/29/19 - 08/05/19 [facility] [address] [place] [address]- [facility] Encounter Diagnosis Vertigo(Discharge Diagnosis) - 07/29/19 Attending Physician: Not on Staff, Attending MD [...] Refills 3, Tot. Refills 3, Soft Stop, 10/28/19 13:40:35 EDT, Route to Pharmacy Electronically, NCPDP_[id number], [facility] - [address] [place] [address] Start Date: 02/10/19 Stop Date: 06/10/19 Status: Ordered aspirin 81 mg oral tablet 1 tablet = 81 mg, By Mouth, Daily, PER DR TRISTAN, # 30 tablet, 5 Refills, Maintenance, 04/30/19 10:28:00 EST, Tablet, [facility], 174, cm, 03/19/19 14:40:00 EST, Height, [...] Maintenance, 208:38:00 EST, Route to Pharmacy Electronically, [facility], 174, cm, 03/19/19 14:40:00 EST, Height, [...] times a day, PRN for dizziness, # 90 tablet, 0 Refills, Acute 08/28/19 7:00:00 EDT, 07/29/19 14:05:00 EDT, Tablet, [facility], 174, cm, 05/26/19 14:06:00 EST, Height, 57, kg, 03/19/19 14:07:00 EST, Dry Weight Start Date: 07/29/19 Stop Date: 08/28/19 Status: Ordered metoprolol 50 mg oral tablet, extended release 50 mg, 1, tablet, By Mouth, Daily, do not crush or chew, # 30 tablet, Refills 5, Tot. Refills 5, Maintenance, 07/30/19 9:47:00 EDT, Route to Pharmacy Electronically, [facility], 174, cm, 05/26/19 14:06:00 EST, Height, [...] 04/20/19 8:38:00 EST, Route to Pharmacy Electronically, [facility],174, cm, 03/19/19 14:40:00 EST, Height, 57, kg, 12/... Start Date: 04/20/19 Status: Ordered Spiriva HandiHaler 18 mcg inhalation capsule 1 capsule = 18 mcg, Inhalation, Daily, use two inhalations of one capsule for each dose, # 30 capsule, 6 Refills, Maintenance, 07/10/19 14:54:00 EDT, [facility], 174, cm, 05/26/19 14:06:00 EST, Height, 57, kg, 03/19/19 14:07:00 EST, Dry Weight Start Date: 07/10/19 Stop Date: 02/05/20 Status: Ordered traZODone 50 mg oral tablet 100 mg, 2, tablet, By Mouth, Daily at bedtime, # 60 tablet, Refills 2, Tot. Refills 2, Maintenance,04/30/19 10:39:00 EST, Route to Pharmacy Electronically, [facility], 174, cm, 03/19/19 14:40:00 EST, Height, [...] 5 Refills, Maintenance, 07/10/19 14:54:00 EDT, Tablet, [facility], 174, cm, 05/26/19 14:06:00 EST, Height, [...] Dates Health Status Clini gabriel Service Informant Vertigo Discharge Diagnosis 07/29/19 Social History Social History Type Response Smoking Status 5-9 cigarettes (betw een 1/4 to 1/2 pack)/day in last 30 days entered on: 05/26/19 Sex
--- OUTSIDE RECORDS SUMMARY | 2022-09-19 20:56 | XMS_ITS | Continuity of Care Document ---
Author Name Unknown Organization [facility] Trevor lt Address [address] [place] [address]- Care Team Providers Care Transportation Services Representative Name Role Phone Mike Kruse MD Primary Care Physician Encounter [facility] Date(s): 12/09/21 - 01/08/22 [facility] [address] [place] [address]- Attending Physician: Admtr, Ar8 Admitting Physician: Admtr, [...] 5 Refills, Maintenance, 10/28/21 14:18:00 EDT, Solution, [facility]/pharmacy #1230, 165, cm, 10/28/21 4:51:00 EDT, Height, 60.5, kg, 10/26/21 13:16:00 EDT, Dry Weight Start Date: 10/28/21 Status: Ordered amLODIPine 5 mg oral tablet 5 mg, 1, tablet, By Mouth, Daily, # 90 tablet, Refills 1, Tot. Refills 1, Soft Stop, 10/19/21 9:10:00 EDT, Route to Pharmacy Electronically, [facility]/pharmacy #1230, 180, cm, 09/26/21 10:49:00 EDT, Height, 77, kg, 04/20/21 15:47:00 EST, Dry Weight Start Date: 10/19/21 Status: Ordered Aspirin Low Dose 81 mg oral delayed release tablet 1 tablet, By Mouth, Daily, # 30 tablet, 11 Refills, 10/19/21 9:10:00 EDT, [facility]/pharmacy #1230, 180, cm, 09/26/21 [...] Gm, 0 Refills, Maintenance, 12/20/21 15:24:00 EDT, [facility], 30, INHALE 1 PUFF BY MOUTH FOUR TIMESDAILY NEEDED FOR WHEEZE OR SHORTNESS OF BREATH,... Start Date: 12/20/21 Status: Ordered fluticasone 50 mcg/inh nasal spray See Instructions, USE 1 SPRAY IN EACH NOSTRIL TWICE A DAY, # 16 each, 5 Refills, Maintenance, 12/19/21 15:27:00 EDT, [facility], 30, USE 1 SPRAY IN EACH NOSTRIL TWICE A DAY, 162, cm, 12/16/21 14:39:00 EDT, Height, 59.5, kg, 12/16/21 0:28:00... Start Date: 12/19/21 Status: Ordered guaiFENesin 400 mg oral tablet 1 tablet = 400 mg, By Mouth, 4 times a day, # 120 tablet, 5 Refills, Maintenance, 10/28/21 14:19:00EDT, Tablet, [facility]/pharmacy #1230, 165, cm, 10/28/21 [...] tablet, 4 Refills, Maintenance, 12/23/21 13:25:00 EDT, [facility], 162, cm, 12/16/21 14:39:00 EDT, Height, 59.5, kg, 12/16/21 0:28:00 EDT, Dry Weight Start Date: 12/23/21 Status: Ordered magnesium oxide 400 mg oral tablet 1 tablet, By Mouth, Daily, # 30 tablet, 6 Refills, Maintenance, 10/19/21 9:10:00 EDT, [facility]/pharmacy #1230, 180, cm, 09/26/21 10:49:00 EDT, Height, 77, kg, 04/20/21 15:47:00 EST, Dry Weight Start Date: 10/19/21 Stop Date: 10/19/21 Status: Ordered Metoprolol Succinate ER 50 mg oral tablet, extended release 1 tablet, By Mouth, Daily, INSTR:DO NOT CRUSH OR CHEW, # 30 tablet, 5 Refills, 10/19/21 9:10:00 EDT, [facility]/pharmacy #1230, 180, cm, 09/26/21 10:49:00 EDT, Height, 77, kg, 04/20/21 15:47:00 EST, Dry Weight Start Date: 10/19/21 Status: Ordered MiraLax oral powder for reconstitution = 17 Gm, By Mouth, 2 times a day, dissolve in water before taking, # 527 Gm, 11 Refills, Maintenance, 10/19/21 9:10:00 EDT, REC Powder, [facility]/pharmacy #1230, Partial fill upon patient request if the prescription is for a schedule II opioid drug., 17 Gm... Start Date: 10/19/21 Status: Ordered montelukast 10 mg oral tablet See Instructions, TAKE 1 TABLET BY MOUTH EVERY DAY AT BEDTIME, # 30 tablet, Refills 5, Maintenance,12/19/21 15:29:00 EDT, Instructions Replace Required Details, Route to Pharmacy Electronically, [facility], 162, cm, 12/16/21 14:39:00 EDT, H... Start Date: 12/19/21 Status: Ordered omeprazole 20 mg oral delayed release tablet 1 tablet = 20 mg, By Mouth, Daily, # 30 tablet, 11 Refills, Maintenance, 07/10/22 15:48:00 EDT, CR Tablet, [facility]/pharmacy #1230, Partial fill upon patient request if the prescription is for a schedule II opioid drug., 180, cm, 09/26/21 10:49:00 EDT, Hei... Start Date: 07/10/22 Stop Date: 07/05/23 Status: Ordered Plavix 75 mg oral tablet 75 mg, 1, tablet, By Mouth, Daily, # 90 tablet, Refills 1, Tot. Refills 1, Maintenance, 11/18/21 16:53:00 EDT, Route to Pharmacy Electronically, [facility]/pharmacy #1230, Partial fill upon patient request if the prescription is for a schedule II opioid drug... Start Date: 11/18/21 Status: Ordered pravastatin 40 mg oral tablet See Instructions, TAKE 1 TABLET BY MOUTH EVERY DAY, # 30 tablet, 5 Refills, Maintenance, 12/19/21 15:29:00 EDT, [facility], 162, cm, 12/16/21 14:39:00 EDT, Height, [...] 12/13/21 12:37:00 EDT, Tablet, [facility]... Start Date: 12/13/21 Status: Ordered ProAir HFA [...] 12/13/21 12:40:00 EDT, Route to Pharmacy Electronically, [id number], [facility],162, cm, 12/13/21 4:46:00 EDT, Height, 60.3, kg, 08... Start Date: 12/13/21 Status: Ordered riboflavin 400 mg oral capsule 1 capsule = 400 mg, By Mouth, Daily, # 30 capsule, 5 Refills, Maintenance, 10/19/21 9:10:00 EDT, [facility]/pharmacy #1230, Partial fill upon patient request if the prescription is for a schedule II opioid drug., 180, cm, 09/26/21 10:49:00 EDT, Height, 77, k... Start Date: 10/19/21 Status: Ordered SEROquel 25 mg oral tablet 25 mg, 1, tablet, By Mouth, Daily at bedtime, # 30 tablet, Refills 5, Tot. Refills 5, Maintenance, 10/28/21 14:23:00 EDT, [facility], cm, 10/28/21 4:51:00 EDT, Height, 60.5, kg, 10/26/21 13:16:00 EDT, Dry... Start Date: 10/28/21 Status: Ordered Spiriva Respimat 1.25 mcg/inh inhalation aerosol 2 puffs, Inhalation, Daily, # 4 Gm, 5 Refills, 10/19/21 9:10:00 EDT, [facility], cm, 09/26/21 10:49:00 EDT, Height, 77, kg, 04/20/21 15:47:00 EST, Dry Weight Start Date: 10/19/21 Status: Ordered Symbicort 160mcg/4.5mcg Inhaler 2, puffs, Inhalation, 2 times a day, # 10.2 Gm, Refills 10, Tot. Refills 10, 10/19/21 9:10:00 EDT, Route to Pharmacy Electronically, [id number], [facility]/pharmacy #1230, 180, cm,09/26/21 10:49:00 EDT, Height, 77, kg, 04/20/21 15:... Start Date: 10/19/21 Status: Ordered tamsulosin 0.4 mg oral capsule 1, capsule, By Mouth, Daily, # 30 capsule, Refills 4, Tot. Refills 4, Maintenance, 10/19/21 9:10:00EDT, Route to Pharmacy Electronically, [facility]/pharmacy #1230, 180, cm, 09/26/21 10:49:00 EDT, Height, 77, kg, 04/20/21 15:47:00 EST, Dry Weight Start Date: 10/19/21 Status: Ordered venlafaxine 37.5 mg oral capsule, extended release 37.5 mg, 1, capsule, By Mouth, Daily, # 30 capsule, Refills 1, Tot. Refills 1, Maintenance, 10/19/21 9:10:00 EDT, Route to Pharmacy Electronically, [facility]/pharmacy #1230, Partial fill upon [...] Team Personnel Name: Mike Kruse MD Address: [address] [place] [id number]
--- OUTSIDE RECORDS SUMMARY | 2022-09-19 20:56 | XMS_ITS | Continuity of Care Document ---
Author Name Unknown Organization [facility] Address [address] [place] [address]- Care Team Providers Care Poultry Offal Icer Name Role Phone Mike Tristan MD Primary Care Physician Encounter [facility] Date(s): 04/30/19 - 05/10/19 [facility] [address] [place] [address]- [facility] Attending Physician: Eliza Gregg Admitting Physician: AdmEliza [...] 12:22:16 EDT, Aerosol, Route to Pharmacy Electronically, NCPDP_[id number], [facility] - [address] [place] [address] Start Date: 10/24/18 Status: Ordered amLODIPine 5 mg oral tablet 5 mg, 1, tablet, By Mouth, Daily, # 90 tablet, Refills 3, Tot. Refills 3, Soft Stop, 02/10/19 13:40:35 EDT, Route to Pharmacy Electronically, NCPDP_ID-[id number], [facility] [address] [facility] Start Date: 02/10/19 Stop Date: 06/10/19 Status: Ordered aspirin 81 mg oral tablet 1 tablet = 81 mg, By Mouth, Daily, PER DR TRISTAN, # 30 tablet, 5 Refills, Maintenance, 04/30/19 10:28:00 EST, Tablet, [facility], 174, cm, 03/19/19 14:40:00 EST, Height, [...] Maintenance, 208:38:00 EST, Route to Pharmacy Electronically, [facility], 174, cm, 03/19/19 14:40:00 EST, Height, [...] three times a day for 7 days, [facility] - [address] [place] [address] Start Date: 01/24/19 Status: Ordered metoprolol 50 mg oral tablet, extended release 50 mg, 1, tablet, By Mouth, Daily, do not crush or chew, # 30 tablet, Refills 2, Tot. Refills 2, Maintenance, 04/30/19 10:39:00 EST, Route to Pharmacy Electronically, [facility], 174, cm, 03/19/19 14:40:00 EST, Height, 57, kg, 03/19/19 14:07... Start Date: 04/30/19 Status: Ordered Nicoderm C-Q Clear 14 mg/24 [...] 04/18/18 8:55:27 EST, Route to Pharmacy Electronically, SCPDP_ID- [id number], [facility] [address] [facility] Start Date: 04/18/18 Status: Ordered [...] 04/20/19 8:38:00 EST, Route to Pharmacy Electronically, [facility],174, cm, 03/19/19 14:40:00 EST, Height, 57, [...] Maintenance,04/30/19 10:39:00 EST, Route to Pharmacy Electronically, [facility], 174, cm, 03/19/19 14:40:00 EST, Height, [...] 5 Refills, Maintenance, 04/20/19 8:38:00 EST, Tablet, [facility], 174, cm, 03/19/19 14:40:00 EST, Height, [...] Response Smoking Status Current every day yeimi muprhy; Type: Cigarettes entered on: 10/26/15 Sex
--- OUTSIDE RECORDS SUMMARY | 2022-09-19 20:56 | XMS_ITS | Continuity of Care Document ---
Author Name Unknown Organization [facility] Address [address] [place] [address] [address] [place] [address]- Care Team Providers Care Clinical Writer Name Role Phone Mike Kruse MD Primary Care Physician Encounter [facility] Date(s): 03/28/22 - 04/27/[address] [place] [address]- Attending Physician: Admtr, Nicola8 Admitting Physician: Admtr, Ar8 Referring Physician: Admtr, Ar8 Allergies, Adverse Reactions, Alerts Substance Reaction Severity Status lisinopril Atenolol Trisha norvegensis Active cloNIDine Active Immunizations Given and Recorded Vaccine Date Status Refusal Reason [id number] 12y+ bivalent booster vax 1 01/20/22 Given [...] Given tetanus/diphtheria/pertussis, acel(Tdap) 04/01/09 Recorded 1Result Comment: [facility][note 3] [id number] 2Location History: [facility] 3Result Comment: [11/22/2016] [facility] 4Result Comment: [03/20/2016] [facility] Medications acetaminophen 325 mg oral tablet 650 mg, 2, tablet, By Mouth, Every 4 hours, PRN, # 30 tablet, Refills 0, Tot. Refills 0, Maintenance, Pain , Mild, 02/21/22 15:17:00 EST, Route to Pharmacy Electronically, [facility], Partial fill upon patient request if the prescription... Start Date: 02/21/22 Status: Ordered amLODIPine 5 mg oral tablet 1 tablet, By Mouth, Daily, # 90 tablet, 1 Refills, Maintenance, 02/09/22 12:58:00 EDT, [facility]ORE [id number], 163, cm, 02/07/22 18:18:00 EDT, Height, 60, kg, 02/07/22 15:54:00 EDT, Dry Weight Start Date: 02/09/22 Status: Ordered Aspirin Low Dose 81 mg oral delayed release tablet 1 tablet, By Mouth, Daily, # 30 tablet, 11 Refills, 10/19/21 9:10:00 EDT, [facility]/pharmacy #1230, 180, cm, 09/26/21 10:49:00 [...] 11 Refills, Maintenance, 04/25/22 10:31:00 EST, Tablet, [facility]/pharmacy #0373, Partial fill upon patient request if the prescription is for a schedule II opioid drug., 163, cm, 03/30/22 10:35:00 EST, Height, 60, kg,... Start Date: 04/25/22 Status: Ordered fluticasone 50 mcg/inh nasal spray See Instructions, SPRAY 1 SPRAY INTO EACH NOSTRIL TWICE A DAY, # 48 mL, 1 Refills, Maintenance, 04/25/22 18:01:00 EST, [facility]/pharmacy #0373, 90, SPRAY 1 SPRAY INTO EACH NOSTRIL TWICE A DAY, 163, cm, 03/30/22 10:35:00 EST, Height, 60, kg, 02/07/22 15:54:... Start Date: 04/25/22 Status: Ordered guaiFENesin 400 mg oral tablet 1 tablet = 400 mg, By Mouth, 4 times a day, # 120 tablet, 5 Refills, Maintenance, 10/28/21 14:19:00EDT, Tablet, [facility]/pharmacy #1230, 165, cm, 10/28/21 4:51:00 [...] tablet, 3 Refills, Maintenance, 04/26/22 9:42:00 EST, [facility]ORE 12852, 163, cm, 03/30/22 10:35:00 EST, Height, 60, kg, 02/07/22 15:54:00 EDT, Dry Weight Start Date: 04/26/22 Status: Ordered magnesium oxide 400 mg oral tablet 1 tablet, By Mouth, Daily, # 30 tablet, 6 Refills, Maintenance, 10/19/21 9:10:00 EDT, [facility]/pharmacy #1230, 180, cm, 09/26/21 10:49:00 EDT, Height, 77, kg, 04/20/21 15:47:00 EST, Dry Weight Start Date: 10/19/21 Stop Date: 10/19/21 Status: Ordered Metoprolol Succinate ER 50 mg oral tablet, extended release See Instructions, 1 TABLET BY MOUTH DAILY,INSTR:INSTR:DO NOT CRUSH OR CHEW, # 90 tablet, 1 Refills,Maintenance, 04/25/22 18:03:00 EST, [facility]/pharmacy #0373, 163, cm, 03/30/22 10:35:00 EST, Height, 60,kg, 02/07/22 15:54:00 EDT, Dry Weight Start Date: 04/25/22 Status: Ordered MiraLax oral powder for reconstitution = 17 Gm, By Mouth, 2 times a day, dissolve in water before taking, # 527 Gm, 11 Refills, Maintenance, 10/19/21 9:10:00 EDT, REC Powder, [facility]/pharmacy #1230, Partial fill upon patient request if the prescription is for a schedule II opioid drug., 17 Gm... Start Date: 10/19/21 Status: Ordered montelukast 10 mg oral tablet See Instructions, TAKE 1 TABLET BY MOUTH EVERY DAY AT BEDTIME, # 30 tablet, Refills 11, Tot. Refills 11, Maintenance, 01/20/22 14:03:00 EDT, Instructions Replace Required Details, Route to Pharmacy Electronically, [facility]/pharmacy #1230, 162, cm, 01/20/22... Start Date: 01/20/22 Status: Ordered Neurontin 100 mg oral capsule 100 mg, 1, capsule, By Mouth, 3 times a day, # 90 capsule, Refills 2, Tot. Refills 2, Maintenance, 03/15/22 15:34:00 EST, Route to Pharmacy Electronically, [facility]/pharmacy #0373, Partial fill upon patient request if the prescription is for a schedule II... Start Date: 03/15/22 Status: Ordered omeprazole 20 mg oral delayed release tablet 1 tablet = 20 mg, By Mouth, Daily, # 30 tablet, 11 Refills, Maintenance, 07/10/22 15:48:00 EDT, CR Tablet, [facility]/pharmacy #1230, Partial fill upon patient [...] 02/21/22 15:17:00 EST, Route to Pharmacy Electronically, [facility], Partial fill upon patient request [...] 11/18/21 16:53:00 EDT, Route to Pharmacy Electronically, [facility]/pharmacy #1230, Partial fill upon patient request if the prescription is for a schedule II opioid drug... Start Date: 11/18/21 Status: Ordered pravastatin 40 mg oral tablet See Instructions, TAKE 1 TABLET BY MOUTH EVERY DAY, # 30 tablet, 5 Refills, Maintenance, 12/19/21 15:29:00 EDT, [facility], 162, cm, 12/16/21 14:39:00 EDT, Height, 59.5, kg, 12/16/21 0:28:00 EDT, Dry Weight Start Date: 12/19/21 Status: Ordered riboflavin 400 mg oral capsule 1 capsule = 400 mg, By Mouth, Daily, # 30 capsule, 5 Refills, Maintenance, 10/19/21 9:10:00 EDT, [facility]/pharmacy #1230, Partial fill upon patient request if the prescription is for a schedule II opioid drug., 180, cm, 09/26/21 10:49:00 EDT, Height, 77, k... Start Date: 10/19/21 Status: Ordered SEROquel 25 mg oral tablet 25 mg, 1, tablet, By Mouth, Daily at bedtime, # 30 tablet, Refills 5, Tot. Refills 5, Maintenance, 10/28/21 14:23:00 EDT, [facility] 165, cm, 10/28/21 4:51:00 EDT, Height, 60.5, kg, 10/26/21 13:16:00 EDT, Dry... Start Date: 10/28/21 Status: Ordered Spiriva Respimat 1.25 mcg/inh inhalation aerosol 2 puffs, Inhalation, Daily, # 4 Gm, 5 Refills, 10/19/21 9:10:00 EDT, [facility]/pharmacy #1230, 180, cm, 09/26/21 10:49:00 EDT, Height, 77, kg, 04/20/21 15:47:00 EST, Dry Weight Start Date: 10/19/21 Status: Ordered Symbicort 160mcg/4.5mcg Inhaler 2, puffs, Inhalation, 2 times a day, # 10.2 Gm, Refills 10, Tot. Refills 10, 10/19/21 9:10:00 EDT, Route to Pharmacy Electronically, [id number], [facility] 180, cm,09/26/21 10:49:00 EDT, Height, 77, kg, 04/20/21 15:... Start Date: 10/19/21 Status: Ordered tamsulosin 0.4 mg oral capsule 1, capsule, By Mouth, Daily, # 30 capsule, Refills 11, Tot. Refills 11, Maintenance, 04/25/22 9:53:00 EST, Route to Pharmacy Electronically, [facility]/pharmacy #0373, 163, cm, 03/30/22 10:35:00 EST, Height, 60, kg, 02/07/22 15:54:00 EDT, Dry Weight Start Date: 04/25/22 Status: Ordered venlafaxine 37.5 mg oral capsule, extended release See Instructions, TAKE 1 CAPSULE BY MOUTH EVERY DAY, # 30 capsule, 1 Refills, Maintenance, 03/31/2211:53:00 EST, [id number], 163, cm, 03/30/22 10:35:00 EST, Height, 60, kg, 02/07/22 15:54:00 EDT, Dry Weight Start Date: 03/31/22 Status: Ordered Ventolin HFA 108 mcg/inh inhalation aerosol with adapter 2 puffs, Inhalation, Every 4 hours, PRN NEEDED FOR WHEEZING, # 18 each, 11 Refills, Maintenance,04/26/22 9:42:00 EST, [id number], 163, cm, 03/30/22 10:35:00 EST, Height, 60, [...] Status Assigning Authority Unknown Unknown Unknown Unknown 11/28/26 Unknown Unknown Active Un known Patient Care team information Care Team Personnel Name: Ana West RN Position: S RN Member Role: Primary Care Nurse Name: Odalys Orozco RN Position: S RN Member Role: Primary Care Nurse Name: Mike Kruse MD Position: [facility] Primary Care Physician Member Role: PCP Address: Address: [address] [place] [id number] Name: Maryam Valenzuela RN Position: S RN Member Role: Primary Care Nurse Name: Deandre Lara LPN Position: S RN Member Role: Primary Care Nurse Name: Hayden Queen RN Position: S RN Member Role: Primary Care Nurse Name: Aruna Winkler RN Position: [facility] RN Member Role: Primary Care Nurse Name: Sabrina Hare RN Position: [facility] RN Member Role: Primary Care Nurse Name: Kristyn Olivo RN Position: S RN Member Role: Primary Care Nurse Name: Marguerite Florentino RN Position: S RN Member Role: Primary Care Nurse Care Team Related Persons Name: ENA SOTO Address: home [address] [place] [address] Name: ELISA TOMPKINS Address: [place] [address] Name: JOSE RAFAEL LI
--- OUTSIDE RECORDS SUMMARY | 2022-09-19 20:56 | XMS_ITS | Continuity of Care Document ---
Author Name Unknown Organization [facility] Trevor Address [address] [place] [id number]- Care Team Providers Care Stereo Plotter Operator Name Role Phone Mike Kruse MD Primary Care Physician [phone] [facility] 08[facility]23[facility] - 08/30/21 [facility] Adult [address] [place] [address]- Attending Physician: Rachell Shannon NP Allergies, Adverse Reactions, Alerts Substance Reaction [...] 11 Refills, Maintenance, 07/15/21 15:49:00 EDT, Solution, [facility], Partial fill upon patient request if the prescription is for a schedule II opioid drug., 180, cm, 04... Start Date: 07/15/21 Status: Ordered amLODIPine 5 mg oral tablet 5 mg, 1, tablet, By Mouth, Daily, # 90 tablet, Refills 1, Tot. Refills 1, Soft Stop, 04/12/21 8:59:00 EST, Route to Pharmacy Electronically, [facility], 174, cm, 03/22/21 13:58:00 EST, Height Start Date: 04/12/21 Status: Ordered Aspirin Low Dose 81 mg oral delayed release tablet 1 tablet, By Mouth, Daily, # 30 tablet, 11 Refills, [facility], 180, cm, 05/03/21 9:32:00EST, Height, 77, kg, 04/20/21 15:47:00 EST, Dry Weight Start Date: 05/06/21 Status: Ordered Claritin 10 mg oral tablet 10 mg, 1, tablet, By Mouth, Daily, REPLACES ZYRTEC, # 30 tablet, Refills 6, Tot. Refills 6, Maintenance, 08/23/21 10:10:00 EDT, Route to Pharmacy Electronically, [facility], Partial fill upon patient request if the prescription is for a sche... Start Date: 08/23/21 Status: Ordered Dulcolax Stool Softener 100 mg oral capsule 1 capsule = 100 mg, By Mouth, 2 times a day, # 60 capsule, 11 Refills, Maintenance, 07/26/21 14:09:00 EDT, Capsule, [facility], Partial fill upon patient request if the prescription is for a schedule II opioid drug., 180, cm, 07/15/21 15:35:... Start Date: 07/26/21 Stop Date: 07/21/22 Status: Ordered fluticasone 50 mcg/inh nasal spray See Instructions, USE 1 SPRAY IN EACH NOSTRIL TWICE A DAY, # 16 Gm, 5 Refills, [facility], 30, USE 1 SPRAY IN EACH NOSTRIL TWICE A DAY, 180, cm, 05/03/21 9:32:00 EST, Height, 77, kg, 04/20/21 15:47:00 EST, Dry Weight Start Date: 05/10/21 Status: Ordered losartan 100 mg oral tablet 1 tablet, By Mouth, Daily, # 30 tablet, 5 Refills, Maintenance, 07/05/21 11:52:00 EDT, [facility], 180, cm, 06/27/21 12:02:00 EDT, Height, 77, kg, 04/20/21 15:47:00 EST, Dry Weight Start Date: 07/05/21 Status: Ordered magnesium oxide 400 mg oral tablet 1 tablet = 400 mg, By Mouth, Daily, # 30 tablet, 0 Refills, Acute 09/23/21 0:00:00 EDT, 08/23/21 10:09:00 EDT, [facility], Partial fill upon patient request if the prescription is for a schedule II opioid drug., 180, cm, 08/23/21 9:21:00 EDT... Start Date: 08/23/21 Stop Date: 09/23/21 Status: Ordered Metoprolol Succinate ER 50 mg oral tablet, extended release 1 tablet, By Mouth, Daily, INSTR:DO NOT CRUSH OR CHEW, # 30 tablet, 5 Refills, [facility], 180, cm, 07/15/21 15:35:00 EDT, Height, 77, kg, 04/20/21 15:47:00 EST, Dry Weight Start Date: 07/29/21 Status: Ordered MiraLax oral powder for reconstitution = 17 Gm, By Mouth, 2 times a day, dissolve in water before taking, # 527 Gm, 11 Refills, Maintenance, 07/26/21 14:09:00 EDT, REC Powder, [facility], Partial fill upon patient request if theprescription is for a schedule II opioid drug., 17... Start Date: 07/26/21 Status: Ordered montelukast 10 mg oral tablet 1, tablet, By Mouth, Daily at bedtime, # 30 tablet, Refills 5, Route to Pharmacy Electronically, [facility], 174, cm, 03/22/21 13:58:00 EST, Height [...] 09/22/21 10:22:00 EDT, 08/11/21 10:22:00 EDT, Patch, [facility], Partial fill upon patient request if the prescriptionis for a schedule II opioid drug., 180, cm, 2... Start Date: 08/11/21 Stop Date: 09/22/21 Status: Ordered omeprazole 20 mg oral delayed release tablet 1 tablet = 20 mg, By Mouth, Daily, # 30 tablet, 11 Refills, Maintenance, 07/15/21 15:48:00 EDT, CR Tablet, [facility], Partial fill upon patient request if the prescription is for a schedule II opioid drug., 180, cm, 07/15/21 15:35:00 EDT, H... Start Date: 07/15/21 Stop Date: 07/10/22 Status: Ordered pravastatin 40 mg oral tablet 1 tablet = 40 mg, By Mouth, Daily, # 90 tablet, 1 Refills, Maintenance, 05/10/21 10:26:00 EST, Tablet, [facility], 180, cm, 05/03/21 9:32:00 EST, Height, 77, kg, 04/20/21 15:47:00 EST, Dry Weight Start Date: 05/10/21 Status: Ordered ProAir HFA 90 mcg/inh inhalation aerosol with adapter 2, puffs, Inhalation, Every 6 hours, PRN, # 8.5 Gm, Refills 6, Route to Pharmacy Electronically, [id number]_[id number], [facility], 174, cm, 04/14/21 14:32:00 EST, Height Start Date: 04/18/21 Status: Ordered riboflavin 400 mg oral capsule 1 capsule = 400 mg, By Mouth, Daily, # 30 capsule, 5 Refills, Maintenance, 08/23/21 10:09:00 EDT, [facility], Partial fill upon patient request if the prescription is for a schedule II opioid drug., 180, cm, 08/23/21 9:21:00 EDT, Height, 77,... Start Date: 08/23/21 Status: Ordered Spiriva Respimat 1.25 mcg/inh inhalation aerosol 2 puffs, Inhalation, Daily, # 4 Gm, 5 Refills, [facility], 180, cm, 05/03/21 9:32:00 EST,Height, 77, kg, 04/20/21 15:47:00 EST, Dry Weight Start Date: 05/05/21 Status: Ordered Symbicort 160mcg/4.5mcg Inhaler 2, puffs, Inhalation, 2 times a day, # 10.2 Gm, Refills 10, Route to Pharmacy Electronically, [id number]_[id number], [facility], 180, cm, 05/03/21 9:32:00 EST, Height, 77, kg, 04/20/21 15:47:00 EST, Dry Weight Start Date: 05/06/21 Status: Ordered tamsulosin 0.4 mg oral capsule 1, capsule, By Mouth, Daily, # 30 capsule, Refills 4, Tot. Refills 4, Maintenance, 08/25/21 14:22:00 EDT, Route to Pharmacy Electronically, [facility], 180, cm, 08/23/21 9:21:00 EDT, Height, 77, kg, 04/20/21 15:47:00 EST, Dry Weight Start Date: 08/25/21 Status: Ordered traZODone 50 mg oral tablet 100 mg, 2, tablet, By Mouth, Daily at bedtime, # 60 tablet, Refills 5, Tot. Refills 5, Maintenance,08/05/21 10:43:00 EDT, Route to Pharmacy Electronically, [facility], 180, cm, 08/02/21 15:00:00 EDT, Height, 77, kg, 04/20/21 15:47:00 EST, D... Start Date: 08/05/21 Status: Ordered venlafaxine 37.5 mg oral capsule, extended release 37.5 mg, 1, capsule, By Mouth, Daily, # 30 capsule, Refills 0, Tot. Refills 0, Maintenance, 06/27/21 13:03:00 EDT, Route to Pharmacy Electronically, [facility], Partial fill upon patient request if [...] oldest [Reference Range]: 1 Height 180 cm (08/23/21 9:21 AM) Social History Social History Type Response Smoking Status 5-9 cigarettes (betw een 1/4 to 1/2 pack)/day in last 30 days entered on: 05/26/19 Sex
--- OUTSIDE RECORDS SUMMARY | 2022-09-19 20:56 | XMS_ITS | Continuity of Care Document ---
Author Name Unknown Organization [facility] Trevor lt Address [address] [place] [id number]- Care Team Providers Care Sale Professional Digital Marketing Name Role Phone Mike Tristan MD Primary Care Physician [phone] [facility]): 03/12/20 - 04/11/20 [facility] Adult [address] [place] [address]- Allergies, Adverse Reactions, Alerts Substance Reaction Severity [...] 12:49:00 EDT, Aerosol, Route to Pharmacy Electronically, [id number]_[id number], [facility], 174, cm, 10/01/19 13:58:00 EDT, Height, 57, kg, 03/19... Start Date: 11/17/19 Status: Ordered amLODIPine 5 mg oral tablet 5 mg, 1, tablet, By Mouth, Daily, # 90 tablet, Refills 1, Tot. Refills 1, Soft Stop, 03/23/20 11:00:00 EST, Route to Pharmacy Electronically, [facility], 174, cm, 03/01/20 11:26:00 EST, Height, [...] Refills, Soft Stop, 03/01/20 12:01:00 EST, Tablet, [facility], Partial fill upon patient request, 174, cm, [...] 0 Refills, Maintenance, 03/12/20 14:48:00 EST, Aerosol, [facility], 1 puffs Inhalation 4 times a [...] Maintenance, 10/12/2012:42:00 EDT, Route to Pharmacy Electronically, [facility], 174, cm, 10/01/19 13:58:00 EDT, Height, [...] 10/14/19 8:46:00 EDT, Route to Pharmacy Electronically, [facility], 174, cm, 10/01/19 13:58:00 EDT, Height, [...] 1 Refills, Maintenance, 03/23/20 10:59:00 EST, Tablet, [facility], 174, cm, 03/01/20 11:26:00 EST, Height, 57, kg, 03/19/19 14:07:00 EST, DryWeight Start Date: 03/23/20 Status: Ordered Singulair 10 mg oral tablet 10 mg, 1, tablet, By Mouth, Daily at bedtime, PER ARPIT PRITCHARD NP-C, # 30 tablet, Refills 5, Tot. Refills 5, Maintenance, 10/13/19 13:42:00 EDT, Route to Pharmacy Electronically, [facility], 174, cm, 10/01/19 13:58:00 EDT, Height, 57, kg, 12... Start Date: 10/13/19 Status: Ordered Spiriva HandiHaler 18 mcg inhalation capsule 1 capsule = 18 mcg, Inhalation, Daily, use two inhalations of one capsule for each dose, # 30 capsule, 5 Refills, Maintenance, 02/18/20 9:52:00 EST, [facility], 174, cm, 02/13/20 14:17:00 EDT, Height, 57, kg, 03/19/19 14:07:00 EST, Dry Weight Start Date: 02/18/20 Stop Date: 08/16/20 Status: Ordered traZODone 50 mg oral tablet 100 mg, 2, tablet, By Mouth, Daily at bedtime, # 60 tablet, Refills 5, Tot. Refills 5, Maintenance,03/08/20 9:08:00 EST, Route to Pharmacy Electronically, [facility], 174, cm, 03/01/20 11:26:00 EST, Height, 57, kg, 03/19/19 14:07:00 EST, . Start Date: 03/08/20 Status: Ordered Tylenol Extra Strength 500 mg oral tablet See Instructions, PRN for pain, 1 or 2 tablet By Mouth 3 times a day PER DR TRISTAN, # 100 tablet, 11 Refills, Maintenance, 08/20/18 16:: EDT, Tablet Start Date: 08/20/18 Status: Ordered ZyrTEC 10 mg oral tablet 1 tablet = 10 mg, By Mouth, Daily, # 30 tablet, 5 Refills, Maintenance, 03/08/20 8:02:00 EST, Tablet, [facility], 174, cm, 03/01/20 11:26:00 EST, Height, [...]
--- OUTSIDE RECORDS SUMMARY | 2022-09-19 20:56 | XMS_ITS | Continuity of Care Document ---
Author Name Unknown Organization [facility] Trevor lt Address [address] [place] [address]- Care Team Providers Care Cotton Tier Name Role Phone Mike Kruse MD Primary Care Physician [facility]): 10/12[facility]21 - 11/11/21 [facility] Adult [address] [place] [address]- Allergies, Adverse Reactions, Alerts Substance Reaction Severity [...] 5 Refills, Maintenance, 10/28/21 14:18:00 EDT, Solution, [facility]/pharmacy #[id number], 165, cm, 10/28/21 4:51:00 EDT, Height, 60.5, kg, 10/26/21 13:16:00 EDT, Dry Weight Start Date: 10/28/21 Status: Ordered amLODIPine 5 mg oral tablet 5 mg, 1, tablet, By Mouth, Daily, # 90 tablet, Refills 1, Tot. Refills 1, Soft Stop, 10/19/21 9:10:00 EDT, Route to Pharmacy Electronically, [facility]/pharmacy #[id number], 180, cm, 09/26/21 10:49:00 EDT, Height, 77, kg, 04/20/21 15:47:00 EST, Dry Weight Start Date: 10/19/21 Status: Ordered Aspirin Low Dose 81 mg oral delayed release tablet 1 tablet, By Mouth, Daily, # 30 tablet, 11 Refills, 10/19/21 9:10:00 EDT, [facility]/pharmacy #[id number], 180, cm, 09/26/21 10:49:00 EDT, Height, 77, kg, 04/20/21 15:47:00 EST, Dry Weight Start Date: 10/19/21 Status: Ordered Dulcolax Stool Softener 100 mg oral capsule 1 capsule = 100 mg, By Mouth, 2 times a day, # 60 capsule, 11 Refills, Maintenance, 07/21/22 14:09:00 EDT, Capsule, [facility]/pharmacy #[id number], Partial fill upon patient request if the prescription is for a schedule II opioid drug., 180, cm, 09/26/21 10:49:00... Start Date: 07/21/22 Stop Date: 07/16/23 Status: Ordered fluticasone 50 mcg/inh nasal spray See Instructions, USE 1 SPRAY IN EACH NOSTRIL TWICE A DAY, # 16 Gm, 5 Refills, 10/19/21 9:10:00 EDT, [facility]/pharmacy #1230, 30, USE 1 SPRAY IN EACH NOSTRIL TWICE A DAY, 180, cm, 09/26/21 10:49:00 EDT, Height, 77, kg, 04/20/21 15:47:00 EST, Dry Weight Start Date: 10/19/21 Status: Ordered guaiFENesin 100 mg/5 mL oral liquid 5 mL = 100 mg, By Mouth, Every 4 hours, PRN for cough, # 300 mL, 0 Refills, Maintenance, 10/12/21 17:43:00 EDT, Liquid, [facility]/pharmacy #[id number], Partial fill upon patient request if the prescription is for a schedule II opioid drug., 180, cm, 09/26/21 10:4... Start Date: 10/12/21 Status: Ordered guaiFENesin 400 mg oral tablet 1 tablet = 400 mg, By Mouth, 4 times a day, # 120 tablet, 5 Refills, Maintenance, 10/28/21 14:19:00EDT, Tablet, [facility]/pharmacy #[id number], 165, cm, 10/28/21 4:51:00 EDT, Height, 60.5, kg, 10/26/21 13:16:00EDT, Dry Weight Start Date: 10/28/21 Status: Ordered losartan 100 mg oral tablet 1 tablet, By Mouth, Daily, # 30 tablet, 5 Refills, Maintenance, 10/19/21 9:10:00 EDT, [facility]/pharmacy #[id number], 180, cm, 09/26/21 10:49:00 EDT, Height, 77, kg, 04/20/21 15:47:00 EST, Dry Weight Start Date: 10/19/21 Status: Ordered magnesium oxide 400 mg oral tablet 1 tablet, By Mouth, Daily, # 30 tablet, 6 Refills, Maintenance, 10/19/21 9:10:00 EDT, [facility]/pharmacy #1230, 180, cm, 09/26/21 10:49:00 EDT, Height, 77, kg, 04/20/21 15:47:00 EST, Dry Weight Start Date: 10/19/21 Stop Date: 10/19/21 Status: Ordered Metoprolol Succinate ER 50 mg oral tablet, extended release 1 tablet, By Mouth, Daily, INSTR:DO NOT CRUSH OR CHEW, # 30 tablet, 5 Refills, 10/19/21 9:10:00 EDT, [facility]/pharmacy #[id number], 180, cm, 09/26/21 10:49:00 EDT, Height, 77, kg, 04/20/21 15:47:00 EST, Dry Weight Start Date: 10/19/21 Status: Ordered MiraLax oral powder for reconstitution = 17 Gm, By Mouth, 2 times a day, dissolve in water before taking, # 527 Gm, 11 Refills, Maintenance, 10/19/21 9:10:00 EDT, REC Powder, [facility]/pharmacy #1230, Partial fill upon patient request if the prescription is for a schedule II opioid drug., 17 Gm... Start Date: 10/19/21 Status: Ordered montelukast 10 mg oral tablet 1, tablet, By Mouth, Daily at bedtime, # 30 tablet, Refills 5, Tot. Refills 5, 10/19/21 9:10:00 EDT, Route to Pharmacy Electronically, [facility]/pharmacy #1230, 180, cm, 09/26/21 10:49:00 EDT, Height, 77, kg, 04/20/21 15:47:00 EST, Dry Weight Start Date: 10/19/21 Status: Ordered omeprazole 20 mg oral delayed release tablet 1 tablet = 20 mg, By Mouth, Daily, # 30 tablet, 11 Refills, Maintenance, 07/10/22 15:48:00 EDT, CR Tablet, [facility]/pharmacy #1230, Partial fill upon patient request if the prescription is for a schedule II opioid drug., 180, cm, 09/26/21 10:49:00 EDT, Hei... Start Date: 07/10/22 Stop Date: 07/05/23 Status: Ordered pravastatin 40 mg oral tablet 1 tablet = 40 mg, By Mouth, Daily, # 90 tablet, 1 Refills, Maintenance, 10/19/21 9:10:00 EDT, Tablet, [facility]/pharmacy #1230, 180, cm, 09/26/21 10:49:00 EDT, Height, 77, kg, 04/20/21 15:47:00 EST, Dry Weight Start Date: 10/19/21 Status: Ordered predniSONE 20 mg oral tablet See Instructions, Take at 7-8 AM 2 tablet QD x 10 D, then 1 tab QD x 10 D, # 30 tablet, 0 Refills, Acute 11/17/21 12:00:00 EDT, 10/28/21 14:20:00 EDT, Tablet, [facility]/pharmacy #1230, 165, cm, 10/28/21 4:51:00 EDT, Height, 60.5, kg, 10/26/21 13:16:00 EDT,... Start Date: 10/28/21 Stop Date: 11/17/21 Status: Ordered ProAir HFA 90 mcg/inh inhalation aerosol with adapter 2, puffs, Inhalation, Every 6 hours, PRN, # 8.5 Gm, Refills 6, Tot. Refills 6, 10/19/21 9:10:00 EDT, Route to Pharmacy Electronically, [id number], [facility]/pharmacy #1230, 180, cm, 09/26/21 10:49:00 EDT, Height, 77, kg, 04/20/21 1... Start Date: 10/19/21 Status: Ordered riboflavin 400 mg oral capsule 1 capsule = 400 mg, By Mouth, Daily, # 30 capsule, 5 Refills, Maintenance, 10/19/21 9:10:00 EDT, [facility]/pharmacy #1230, Partial fill upon patient request if the prescription is for a schedule II opioid drug., 180, cm, 09/26/21 10:49:00 EDT, Height, 77, k... Start Date: 10/19/21 Status: Ordered SEROquel 25 mg oral tablet 25 mg, 1, tablet, By Mouth, Daily at bedtime, # 30 tablet, Refills 5, Tot. Refills 5, Maintenance, 10/28/21 14:23:00 EDT, Route to Pharmacy Electronically, [facility]/pharmacy #1230, 165, cm, 10/28/21 4:51:00 EDT, Height, 60.5, kg, 10/26/21 13:16:00 EDT, Dry... Start Date: 10/28/21 Status: Ordered Spiriva Respimat 1.25 mcg/inh inhalation aerosol 2 puffs, Inhalation, Daily, # 4 Gm, 5 Refills, 10/19/21 9:10:00 EDT, [facility]/pharmacy #1230, 180, cm, 09/26/21 10:49:00 EDT, Height, 77, kg, 04/20/21 15:47:00 EST, Dry Weight Start Date: 10/19/21 Status: Ordered Symbicort 160mcg/4.5mcg Inhaler 2, puffs, Inhalation, 2 times a day, # 10.2 Gm, Refills 10, Tot. Refills 10, 10/19/21 9:10:00 EDT, Route to Pharmacy Electronically, [id number], [facility]/pharmacy #1230, 180, cm,09/26/21 10:49:00 EDT, Height, 77, kg, 04/20/21 15:... Start Date: 10/19/21 Status: Ordered tamsulosin 0.4 mg oral capsule 1, capsule, By Mouth, Daily, # 30 capsule, Refills 4, Tot. Refills 4, Maintenance, 10/19/21 9:10:00EDT, Route to Pharmacy Electronically, [facility]/pharmacy #1230, 180, cm, 09/26/21 10:49:00 EDT, Height, 77, kg, 04/20/21 15:47:00 EST, Dry Weight Start Date: 10/19/21 Status: Ordered venlafaxine 37.5 mg oral capsule, extended release 37.5 mg, 1, capsule, By Mouth, Daily, # 30 capsule, Refills 1, Tot. Refills 1, Maintenance, 10/19/21 9:10:00 EDT, Route to Pharmacy Electronically, [facility]/pharmacy #[id number], Partial fill upon patient request if [...]
--- OUTSIDE RECORDS SUMMARY | 2022-09-19 20:56 | XMS_ITS | Continuity of Care Document ---
Author Name Unknown Organization [facility] Trevor lt Address [address] [place] [address]- Care Team Providers Care Ivory Carver Name Role Phone Mike Kruse MD Primary Care Physician [facility]): 09[facility]07[facility]21 - 10/07/21 [facility] Adult [address] [place] [address]- Allergies, Adverse Reactions, Alerts Substance Reaction Severity [...] 11 Refills, Maintenance, 07/15/21 15:49:00 EDT, Solution, [facility], Partial fill upon patient request if the prescription is for a schedule II opioid drug., 180, cm, 04... Start Date: 07/15/21 Status: Ordered amLODIPine 5 mg oral tablet 5 mg, 1, tablet, By Mouth, Daily, # 90 tablet, Refills 1, Tot. Refills 1, Soft Stop, 04/12/21 8:59:00 EST, Route to Pharmacy Electronically, [facility], 174, cm, 03/22/21 13:58:00 EST, Height Start Date: 04/12/21 Status: Ordered Aspirin Low Dose 81 mg oral delayed release tablet 1 tablet, By Mouth, Daily, # 30 tablet, 11 Refills, [facility], 180, cm, 05/03/21 9:32:00EST, Height, 77, kg, 04/20/21 15:47:00 EST, Dry Weight Start Date: 05/06/21 Status: Ordered Claritin 10 mg oral tablet 10 mg, 1, tablet, By Mouth, Daily, REPLACES ZYRTEC, # 30 tablet, Refills 6, Tot. Refills 6, Maintenance, 08/23/21 10:10:00 EDT, Route to Pharmacy Electronically, [facility], Partial fill upon patient request if the prescription is for a sche... Start Date: 08/23/21 Status: Ordered Dulcolax Stool Softener 100 mg oral capsule 1 capsule = 100 mg, By Mouth, 2 times a day, # 60 capsule, 11 Refills, Maintenance, 07/26/21 14:09:00 EDT, Capsule, [facility], Partial fill upon patient request if the prescription is for a schedule II opioid drug., 180, cm, 07/15/21 15:35:... Start Date: 07/26/21 Stop Date: 07/21/22 Status: Ordered fluticasone 50 mcg/inh nasal spray See Instructions, USE 1 SPRAY IN EACH NOSTRIL TWICE A DAY, # 16 Gm, 5 Refills, [facility], 30, USE 1 SPRAY IN EACH NOSTRIL TWICE A DAY, 180, cm, 05/03/21 9:32:00 EST, Height, 77, kg, 04/20/21 15:47:00 EST, Dry Weight Start Date: 05/10/21 Status: Ordered losartan 100 mg oral tablet 1 tablet, By Mouth, Daily, # 30 tablet, 5 Refills, Maintenance, 07/05/21 11:52:00 EDT, [facility], 180, cm, 06/27/21 12:02:00 EDT, Height, 77, kg, 04/20/21 15:47:00 EST, Dry Weight Start Date: 07/05/21 Status: Ordered magnesium oxide 400 mg oral tablet 1 tablet, By Mouth, Daily, # 30 tablet, 6 Refills, [facility], 180, cm, 09/26/21 10:49:00EDT, Height, 77, kg, 04/20/21 15:47:00 EST, Dry Weight Start Date: 09/27/21 Status: Ordered meclizine 25 mg oral tablet 1 tablet = 25 mg, By Mouth, 3 times a day, PRN for dizziness, # 30 tablet, 0 Refills, Acute 10/10/21 0:00:00 EDT, 09/26/21 11:21:00 EDT, Tablet, [facility], Partial fill upon patient request if the prescription is for a schedule II opioid . Start Date: 09/26/21 Stop Date: 10/10/21 Status: Ordered Metoprolol Succinate ER 50 mg oral tablet, extended release 1 tablet, By Mouth, Daily, INSTR:DO NOT CRUSH OR CHEW, # 30 tablet, 5 Refills, [facility], 180, cm, 07/15/21 15:35:00 EDT, Height, 77, kg, 04/20/21 15:47:00 EST, Dry Weight Start Date: 07/29/21 Status: Ordered MiraLax oral powder for reconstitution = 17 Gm, By Mouth, 2 times a day, dissolve in water before taking, # 527 Gm, 11 Refills, Maintenance, 07/26/21 14:09:00 EDT, REC Powder, [facility], Partial fill upon patient request if theprescription is for a schedule II opioid drug., 17... Start Date: 07/26/21 Status: Ordered montelukast 10 mg oral tablet 1, tablet, By Mouth, Daily at bedtime, # 30 tablet, Refills 5, Route to Pharmacy Electronically, [facility], 174, cm, 03/22/21 13:58:00 EST, Height [...] Refills, Maintenance, 07/15/21 15:48:00 EDT, CR Tablet, [facility], Partial fill upon patient request if the prescription is for a schedule II opioid drug., 180, cm, 07/15/21 15:35:00 EDT, H... Start Date: 07/15/21 Stop Date: 07/10/22 Status: Ordered pravastatin 40 mg oral tablet 1 tablet = 40 mg, By Mouth, Daily, # 90 tablet, 1 Refills, Maintenance, 05/10/21 10:26:00 EST, Tablet, [facility], 180, cm, 05/03/21 9:32:00 EST, Height, 77, kg, 04/20/21 15:47:00 EST, Dry Weight Start Date: 05/10/21 Status: Ordered ProAir HFA 90 mcg/inh inhalation aerosol with adapter 2, puffs, Inhalation, Every 6 hours, PRN, # 8.5 Gm, Refills 6, Route to Pharmacy Electronically, NCPDP_[id number], [facility], 174, cm, 04/14/21 14:32:00 EST, Height Start Date: 04/18/21 Status: Ordered riboflavin 400 mg oral capsule 1 capsule = 400 mg, By Mouth, Daily, # 30 capsule, 5 Refills, Maintenance, 08/23/21 10:09:00 EDT, [facility], Partial fill upon patient request if the prescription is for a schedule II opioid drug., 180, cm, 08/23/21 9:21:00 EDT, Height, 77,... Start Date: 08/23/21 Status: Ordered Spiriva Respimat 1.25 mcg/inh inhalation aerosol 2 puffs, Inhalation, Daily, # 4 Gm, 5 Refills, 10/03/21 11:24:00 EDT, [facility], 180, cm, 09/26/21 10:49:00 EDT, Height, 77, kg, 04/20/21 15:47:00 EST, Dry Weight Start Date: 10/03/21 Status: Ordered Symbicort 160mcg/4.5mcg Inhaler 2, puffs, Inhalation, 2 times a day, # 10.2 Gm, Refills 10, Route to Pharmacy Electronically, NCPDP_[id number], [facility], 180, cm, 05/03/21 9:32:00 EST, Height, 77, kg, 04/20/21 15:47:00 EST, Dry Weight Start Date: 05/06/21 Status: Ordered tamsulosin 0.4 mg oral capsule 1, capsule, By Mouth, Daily, # 30 capsule, Refills 4, Tot. Refills 4, Maintenance, 08/25/21 14:22:00 EDT, Route to Pharmacy Electronically, [facility], 180, cm, 08/23/21 9:21:00 EDT, Height, 77, kg, 04/20/21 15:47:00 EST, Dry Weight Start Date: 08/25/21 Status: Ordered traZODone 50 mg oral tablet 100 mg, 2, tablet, By Mouth, Daily at bedtime, # 60 tablet, Refills 5, Tot. Refills 5, Maintenance,08/05/21 10:43:00 EDT, Route to Pharmacy Electronically, [facility], 180, cm, 08/02/21 15:00:00 EDT, Height, 77, kg, 04/20/21 15:47:00 EST, D... Start Date: 08/05/21 Status: Ordered venlafaxine 37.5 mg oral capsule, extended release 37.5 mg, 1, capsule, By Mouth, Daily, # 30 capsule, Refills 0, Tot. Refills 0, Maintenance, 06/27/21 13:03:00 EDT, Route to Pharmacy Electronically, [facility], Partial fill upon patient request if [...]
--- OUTSIDE RECORDS SUMMARY | 2022-09-19 20:56 | XMS_ITS | Continuity of Care Document ---
Author Name Unknown Organization [facility], [place] [place] [facility] lt Address [address] [place] [address]- Care Team Providers Care Dining Service Supervisor Name Role Phone Mike Tristan MD Primary Care Phys[place] [facility] [place]20 [facility] [place] [place] [facility] [address] [place] [address]- Attending Physician: Rachell Shannon NP Referring Physician: [...] 05/05/20 13:45:00 EST, Route to Pharmacy Electronically, [facility], 174, cm, 03/01/20 11:26:00 EST, Height, 57, kg, 03/19/19 14:07:00 EST, Dry Weight Start Date: 05/05/20 Status: Ordered aspirin 81 mg oral tablet 1 tablet = 81 mg, By Mouth, Daily, PER DR TRISTAN, # 30 tablet, 5 Refills, Maintenance, 10/13/19 13:42:00 EDT, Tablet, [facility], 174, cm, 10/01/19 13:58:00 EDT, Height, [...] Gm, 11 Refills, Maintenance, 05/07/20 10:33:00 EST, [facility], 30, 1 puffs Inhalation 4 times a day,PRN: NEEDED FOR WHEEZING OR SHORTNESS OF BREATH... Start Date: 05/07/20 Status: Ordered ENSURE CHOCOLATE ENSURE CHOCOLATE, See Instructions, # 1 box, Refills 0, Tot. Refills 0, Maintenance, [facility]: [facility]0 R63.4 , 08/31/17 9:38:21 EDT, Compound Start Date: 08/31/17 Status: Ordered Flomax 0.4 mg oral capsule 0.4 mg, 1, capsule, By Mouth, Daily, # 30 capsule, Refills 5, Tot. Refills 5, Maintenance, 04/27/2113:59:00 EST, Route to Pharmacy Electronically, [facility], 174, cm, 03/01/20 11:26:00 EST, Height, 57, kg, 03/19/19 14:07:00 EST, Dry Weight Start Date: 04/27/20 Status: Ordered fluticasone 50 mcg/inh nasal spray See Instructions, INSTILL 1 SPRAY INTO EACH NOSTRIL TWICE DAILY, # 16 Gm, 2 Refills, Maintenance, [facility], 30, INSTILL 1 SPRAY INTO EACH [...] tablet, 0 Refills, Maintenance, 05/06/20 8:04:00 EST, [facility], 174, cm, 03/01/20 11:26:00 EST, Height, 57, kg, 03/19/19 14:07:00 EST, Dry Weight Start Date: 05/06/20 Status: Ordered metoprolol 50 mg oral tablet, extended release 50 mg, 1, tablet, By Mouth, Daily, do not crush or chew, # 30 tablet, Refills 2, Tot. Refills 2, Maintenance, 10/14/19 8:46:00 EDT, Route to Pharmacy Electronically, [facility], 174, cm, 10/01/19 13:58:00 EDT, Height, 57, kg, 03/19/19 14:07:... Start Date: 10/14/19 Status: Ordered Nasacort Allergy 24HR 55 mcg/inh nasal spray 2 sprays, Nares, Both, Daily, # 3 each, 0 Refills, Maintenance, 01/08/20 14:50:00 EDT, [facility], 2 sprays Nares, Both Daily, 174, [...] 1 Refills, Maintenance, 03/23/20 10:59:00 EST, Tablet, [facility], 174, cm, 03/01/20 11:26:00 EST, Height, 57, kg, 03/19/19 14:07:00 EST, DryWeight Start Date: 03/23/20 Status: Ordered PriLOSEC OTC 20 mg oral delayed release tablet 1 tablet = 20 mg, By Mouth, Daily, # 14 tablet, 0 Refills, Maintenance, 06/08/20 10:27:00 EST, EC Tablet, [facility], Partial fill upon patient request if the prescription is for a scheduleII opioid drug., 174, cm, 06/08/20 9:48:00 EST, Hei... Start Date: 06/08/20 Stop Date: 06/22/20 Status: Ordered Singulair 10 mg oral tablet 10 mg, 1, tablet, By Mouth, Daily at bedtime, PER RACHELL DUNN, # 30 tablet, Refills 5, Tot. Refills 5, Maintenance, 05/05/20 13:42:00 EST, Route to Pharmacy Electronically, [facility], 174, cm, 03/01/20 11:26:00 EST, Height, [...] 13:51:00 EST, Aerosol, Route to Pharmacy Electronically, [id number]_[id number], [facility], 174,cm, 05/07/20 10:13:00 EST, Height, 57, kg, 03/19/19... Start Date: 05/25/20 Status: Ordered traZODone 50 mg oral tablet 100 mg, 2, tablet, By Mouth, Daily at bedtime, # 60 tablet, Refills 5, Tot. Refills 5, Maintenance,03/08/20 9:08:00 EST, Route to Pharmacy Electronically, [facility], 174, cm, 03/01/20 11:26:00 EST, Height, 57, kg, 03/19/19 14:07:00 EST, Dr... Start Date: 03/08/20 Status: Ordered Tylenol Extra Strength 500 mg oral tablet See Instructions, PRN for pain, 1 or 2 tablet By Mouth 3 times a day PER DR TRISTAN, # 100 tablet, 11 Refills, Maintenance, 06/08/20 10:22:00 EST, Tablet, [facility], 174, cm, 06/08/20 9:48:00 EST, Height, 57, kg, 03/19/19 14:07:00 EST, Dry Weight Start Date: 06/08/20 Status: Ordered Zoloft 25 mg oral tablet 1 tablet = 25 mg, By Mouth, Daily, # 30 tablet, 0 Refills, Maintenance, 06/08/20 10:27:00 EST, Tablet, [facility], Partial fill upon patient request if the prescription is for a schedule IIopioid drug., 174, cm, 06/08/20 9:48:00 EST, Height... Start Date: 06/08/20 Status: Ordered ZyrTEC 10 mg oral tablet 1 tablet = 10 mg, By Mouth, Daily, # 30 tablet, 5 Refills, Maintenance, 03/08/20 8:02:00 EST, Tablet, [facility], 174, cm, 03/01/20 11:26:00 EST, Height, [...] oldest [Reference Range]: 1 Height 174 cm (06/08/20 9:48 AM) Social History Social History Type Response Smoking Status 5-9 cigarettes (betw een 1/4 to 1/2 pack)/day in last 30 days entered on: 05/26/19 Sex
--- OUTSIDE RECORDS SUMMARY | 2022-09-19 20:56 | XMS_ITS | Continuity of Care Document ---
Author Name Unknown Organization [facility] lt Address [address] [place] [address]- Care Team Providers Care Burn Table Operator Name Role Phone Aiax BERNABE, Mike Bennett Primary Care Physician Encounter [facility] Date(s): 11/01/20 - 12/01/20 [facility] [address] [place] [address]- Allergies, Adverse Reactions, Alerts Substance Reaction Severity [...] 05/05/20 13:45:00 EST, Route to Pharmacy Electronically, [facility], 174, cm, 03/01/20 11:26:00 EST, Height, 57, kg, 03/19/19 14:07:00 EST, Dry Weight Start Date: 05/05/20 Status: Ordered aspirin 81 mg oral tablet 1 tablet = 81 mg, By Mouth, Daily, PER DR TRISTAN, # 30 tablet, 5 Refills, Maintenance, 10/13/19 13:42:00 EDT, Tablet, [facility], 174, cm, 10/01/19 13:58:00 EDT, Height, 57, kg, 03/19/19 14:07:00 EST, Dry Weight Start Date: 10/13/19 Status: Ordered Combivent Respimat 20 mcg-100 mcg/inh inhalation aerosol 1 puffs, Inhalation, 4 times a day, PRN NEEDED FOR WHEEZING OR SHORTNESS OF BREATH, # 4 Gm, 11 Refills, Maintenance, 05/07/20 10:33:00 EST, [facility], 30, 1 puffs Inhalation 4 times a day,PRN: NEEDED FOR WHEEZING OR SHORTNESS OF BREATH... Start Date: 05/07/20 Status: Ordered docusate sodium 100 mg oral capsule 1 capsule = 100 mg, By Mouth, 2 times a day, PRN as needed for constipation, # 100 capsule, 2 Refills, Maintenance, 08/17/20 14:09:00 EDT, Capsule, [facility], Partial [...] 16 Gm, 2 Refills, 08/24/20 15:55:00 EDT, [facility], 30, INSTILL 1 SPRAY INTO EACH [...] 1 Refills, Maintenance, 11/30/20 11:11:00 EDT, Capsule, [facility], Partial fill upon patient request if the prescription is for a scheduleII opioid drug., 174, cm, 11/30/20 10:34:00 EDT, He... Start Date: 11/30/20 Status: Ordered losartan 100 mg oral tablet 1 tablet, By Mouth, Daily, # 30 tablet, 11 Refills, Maintenance, 07/12/20 14:44:00 [facility], [facility], cm, 07/12/20 14:32:00 EDT, Height, 57, kg, 03/19/19 14:07:00 EST, Dry Weight Start Date: 07/12/20 Status: Ordered metoprolol 50 mg oral tablet, extended release 50 mg, 1, tablet, By Mouth, Daily, do not crush or chew, # 30 tablet, Refills 11, Tot. Refills 11, Maintenance, 07/12/20 14:44:00 EDT, Route to Pharmacy Electronically, [facility], 174, cm,07/12/20 14:32:00 EDT, Height, 57, kg, 03/19/19 14:... Start Date: 07/12/20 Status: Ordered montelukast 10 mg oral tablet 1, tablet, By Mouth, Daily at bedtime, # 30 tablet, Refills 4, Tot. Refills 0, Maintenance, 10/20/20 11:07:00 EDT, Route to Pharmacy Electronically, [facility], 174, cm, 09/14/20 14:37:00 EDT, Height, 57, kg, 03/19/19 14:07:00 EST, Dry Weight Start Date: 10/20/20 Status: Ordered Nasacort Allergy 24HR 55 mcg/inh nasal spray 2 sprays, Nares, Both, Daily, # 3 each, 0 Refills, Maintenance, 01/08/20 14:50:00 EDT, [facility], 2 sprays Nares, Both Daily, 174, cm, 01/08/20 14:29:00 EDT, Height, 57, kg, 03/19/19 14:07:00 EST, Dry Weight Start Date: 01/08/20 Status: Ordered nicotine 4 mg oral transmucosal lozenge 1 lozenge = 4 mg, By Mouth, Every hour, # 189 lozenge, 11 Refills, Maintenance, 07/12/20 14:49:00 EDT, [facility], 1 lozenge By Mouth Every hour, [...] 1 Refills, Maintenance, 08/24/20 15:56:00 EDT, Tablet, [facility], 174, cm, 08/17/20 13:45:00 EDT, Height, [...] 11 Refills, Maintenance, 05/25/20 13:51:00 EST, Aerosol, [facility], Partial fill upon patient request if the prescription is for a schedule II opioid drug., 174, cm, 05/07/20 10:13:00 EST, Height, 57, kg,... Start Date: 05/25/20 Status: Ordered Symbicort 160mcg/4.5mcg Inhaler 2, puffs, Inhalation, 2 times a day, # 1 each, Refills 11, Tot. Refills 11, Maintenance, 05/25/20 13:51:00 EST, Aerosol, Route to Pharmacy Electronically, [id number]_[id number], [facility], 174,cm, 05/07/20 10:13:00 EST, Height, 57, kg, 03/19/19... Start Date: 05/25/20 Status: Ordered tamsulosin 0.4 mg oral capsule 1, capsule, By Mouth, Daily, # 30 capsule, Refills 4, Tot. Refills 0, Maintenance, 10/20/20 11:06:00 EDT, Route to Pharmacy Electronically, [facility], 174, cm, 09/14/20 14:37:00 EDT, Height, 57, kg, 03/19/19 14:07:00 EST, Dry Weight Start Date: 10/20/20 Status: Ordered traZODone 50 mg oral tablet 100 mg, 2, tablet, By Mouth, Daily at bedtime, # 60 tablet, Refills 11, Tot. Refills 11, Maintenance, 07/12/20 14:43:00 EDT, Route to Pharmacy Electronically, [facility], 174, cm, 07/12/20 14:32:00 EDT, Height, 57, kg, 03/19/19 14:07:00 EST,... Start Date: 07/12/20 Status: Ordered Tylenol Extra Strength 500 mg oral tablet See Instructions, PRN for pain, 1 or 2 tablet By Mouth 3 times a day PER DR TRISTAN, # 100 tablet, 11 Refills, Maintenance, 06/08/20 10:22:00 EST, Tablet, [facility], 174, cm, 06/08/20 9:48:00 EST, Height, 57, kg, 03/19/19 14:07:00 EST, Dry Weight Start Date: 06/08/20 Status: Ordered ZyrTEC 10 mg oral tablet 1 tablet = 10 mg, By Mouth, Daily, # 30 tablet, 5 Refills, Maintenance, 03/08/20 8:02:00 EST, Tablet, [facility], 174, cm, 03/01/20 11:26:00 EST, Height, [...]
--- OUTSIDE RECORDS SUMMARY | 2022-09-19 20:56 | XMS_ITS | Continuity of Care Document ---
Author Name Unknown Organization [facility] Trevor lt Address [address] [place] [address]- Care Team Providers Care Print Decorator Name Role Phone Aixa BERNABE, Mike Bennett Primary Care Physician Encounter [facility] Date(s): 04/02/20 - 05/02/20 [facility] Adult [address] [place] [address]- Allergies, Adverse Reactions, Alerts Substance Reaction Severity [...] 12:49:00 EDT, Aerosol, Route to Pharmacy Electronically, NCPDP_[id number], [facility], 174, cm, 10/01/19 13:58:00 EDT, Height, 57, kg, 03/19... Start Date: 11/17/19 Status: Ordered amLODIPine 5 mg oral tablet 5 mg, 1, tablet, By Mouth, Daily, # 90 tablet, Refills 1, Tot. Refills 1, Soft Stop, 03/23/20 11:00:00 EST, Route to Pharmacy Electronically, [facility], 174, cm, 03/01/20 11:26:00 EST, Height, 57, kg, 03/19/19 14:07:00 EST, Dry Weight Start Date: 03/23/20 Status: Ordered aspirin 81 mg oral tablet 1 tablet = 81 mg, By Mouth, Daily, PER DR TRISTAN, # 30 tablet, 5 Refills, Maintenance, 10/13/19 13:42:00 EDT, Tablet, [facility], 174, cm, 10/01/19 13:58:00 EDT, Height, 57, kg, 03/19/19 14:07:00 EST, Dry Weight Start Date: 10/13/19 Status: Ordered ASPIRIN LOW 81MG EC ASPIRIN LOW 81MG EC, 1, tablet, By Mouth, Daily, # 30 tablet, 4 Refills, Maintenance, 04/28/20 8:42:00 EST, 174, cm, 03/01/20 11:26:00 EST, Height, 57, kg, 03/19/19 14:07:00 EST, Dry Weight Start Date: 04/28/20 Status: Ordered Azithromycin 5 Day Dose Pack 250 mg oral tablet 1 pack/packet, By Mouth, Once, # 6 tablet, 0 Refills, Soft Stop, 03/01/20 12:01:00 EST, Tablet, [facility], Partial fill upon patient request, 174, cm, 03/01/20 11:26:00 EST, Height, 57, kg, 03/19/19 14:07:00 EST, Dry Weight Start Date: 03/01/20 Status: Ordered Chantix Starter Pack 0.5 mg-1 mg oral tablet 1 tablet, By Mouth, 2 times a day, as directed on package labeling, # 53 tablet, 0 Refills, Maintenance, 02/13/20 14:46:00 EDT, Tablet, [facility], 1 tablet By Mouth 2 times a day,Instr:as directed on package labeling, 174, cm, 02/13/20 14:1... Start Date: 02/13/20 Status: Ordered Combivent Respimat 20 mcg-100 mcg/inh inhalation aerosol 1 puffs, Inhalation, 4 times a day, PRN Wheezing/Shortness of Breath, # 1 each, 0 Refills, Maintenance, 03/12/20 14:48:00 EST, Aerosol, [facility], 1 puffs Inhalation 4 times a [...] Maintenance, 04/27/2113:59:00 EST, Route to Pharmacy Electronically, [facility], 174, cm, 03/01/20 11:26:00 EST, Height, 57, kg, 03/19/19 14:07:00 EST, Dry Weight Start Date: 04/27/20 Status: Ordered hydrocortisone 1% topical cream 1 [...] 10/14/19 8:46:00 EDT, Route to Pharmacy Electronically, [facility], 174, cm, 10/01/19 13:58:00 EDT, Height, 57, kg, 03/19/19 14:07:... Start Date: 10/14/19 Status: Ordered Nasacort Allergy 24HR 55 mcg/inh nasal spray 2 sprays, Nares, Both, Daily, # 3 each, 0 Refills, Maintenance, 01/08/20 14:50:00 EDT, [facility], 2 sprays Nares, Both Daily, 174, [...] 1 Refills, Maintenance, 03/23/20 10:59:00 EST, Tablet, [facility], 174, cm, 03/01/20 11:26:00 EST, Height, 57, kg, 03/19/19 14:07:00 EST, DryWeight Start Date: 03/23/20 Status: Ordered Singulair 10 mg oral tablet 10 mg, 1, tablet, By Mouth, Daily at bedtime, PER ARPIT DUNN, # 30 tablet, Refills 5, Tot. Refills 5, Maintenance, 10/13/19 13:42:00 EDT, Route to Pharmacy Electronically, [facility], 174, cm, 10/01/19 13:58:00 EDT, Height, 57, kg, 12... Start Date: 10/13/19 Status: Ordered Spiriva HandiHaler 18 mcg inhalation capsule 1 capsule = 18 mcg, Inhalation, Daily, use two inhalations of one capsule for each dose, # 30 capsule, 5 Refills, Maintenance, 02/18/20 9:52:00 EST, [facility], 174, cm, 02/13/20 14:17:00 EDT, Height, 57, kg, 03/19/19 14:07:00 EST, Dry Weight Start Date: 02/18/20 Stop Date: 08/16/20 Status: Ordered traZODone 50 mg oral tablet 100 mg, 2, tablet, By Mouth, Daily at bedtime, # 60 tablet, Refills 5, Tot. Refills 5, Maintenance,03/08/20 9:08:00 EST, Route to Pharmacy Electronically, [facility], 174, cm, 03/01/20 11:26:00 EST, Height, [...] 5 Refills, Maintenance, 03/08/20 8:02:00 EST, Tablet, [facility], 174, cm, 03/01/20 11:26:00 EST, Height, [...]
--- OUTSIDE RECORDS SUMMARY | 2022-09-19 20:56 | XMS_ITS | Continuity of Care Document ---
Author Name Unknown Organization [facility] ter Address [address] [place] [id number]- Care Team Providers Care Vegetable Harvest Worker Name Role Phone Mike Kruse MD Primary Care Physician [place] [facility] [place] - 05/28/[address] [address] Attending Physician: Mike Kruse MD Admitting Physician: Mike Kruse MD Referring Physician: Mike Kruse MD Allergies, Adverse [...] 04/12/21 8:59:00 EST, Route to Pharmacy Electronically, [facility], 174, cm, 03/22/21 13:58:00 EST, Height Start Date: 04/12/21 Status: Ordered Aspirin Low Dose 81 mg oral delayed release tablet 1 tablet, By Mouth, Daily, # 30 tablet, 11 Refills, [facility], 180, cm, 05/03/21 9:32:00EST, Height, 77, kg, 04/20/21 15:47:00 EST, Dry Weight Start Date: 05/06/21 Status: Ordered Combivent Respimat 20 mcg-100 mcg/inh inhalation aerosol 1 puffs, Inhalation, 4 times a day, PRN NEEDED FOR WHEEZING OR SHORTNESS OF BREATH, # 4 Gm, 5 Refills, Maintenance, 05/10/21 11:08:00 EST, [facility], 30, 1 puffs Inhalation 4 times a day,PRN: NEEDED FOR WHEEZING OR SHORTNESS OF BREATH,... Start Date: 05/10/21 Status: Ordered fluticasone 50 mcg/inh nasal spray See Instructions, USE 1 SPRAY IN EACH NOSTRIL TWICE A DAY, # 16 Gm, 5 Refills, [facility], 30, USE 1 SPRAY IN EACH NOSTRIL TWICE A DAY, 180, cm, 05/03/21 9:32:00 EST, Height, 77, kg, 04/20/21 15:47:00 EST, Dry Weight Start Date: 05/10/21 Status: Ordered losartan 100 mg oral tablet 1 tablet, By Mouth, Daily, # 30 tablet, 11 Refills, Maintenance, 07/12/20 14:44:00 EDT, [facility], 174, cm, 07/12/20 14:32:00 EDT, Height, 57, kg, 03/19/19 14:07:00 EST, Dry Weight Start Date: 07/12/20 Status: Ordered metoprolol 50 mg oral tablet, extended release 50 mg, 1, tablet, By Mouth, Daily, do not crush or chew, # 30 tablet, Refills 11, Tot. Refills 11, Maintenance, 07/12/20 14:44:00 EDT, Route to Pharmacy Electronically, [facility], 174, cm,07/12/20 14:32:00 EDT, Height, 57, kg, 03/19/19 14:... Start Date: 07/12/20 Status: Ordered montelukast 10 mg oral tablet 1, tablet, By Mouth, Daily at bedtime, # 30 tablet, Refills 5, Route to Pharmacy Electronically, [facility], 174, cm, 03/22/21 13:58:00 EST, Height Start Date: 04/07/21 Status: Ordered Nebulizer/Compressor See Instructions, # 1 each, Maintenance, Use up to qid Dx. copd Include tubing and mouthpiece, 04/29/21 14:42:00 EST, Supply Start Date: 04/29/21 Status: Ordered pravastatin 40 mg oral tablet 1 tablet = 40 mg, By Mouth, Daily, # 90 tablet, 1 Refills, Maintenance, 05/10/21 10:26:00 EST, Tablet, [facility], 180, cm, 05/03/21 9:32:00 EST, Height, [...] 0 Refills, Maintenance, 04/22/21 10:45:00 EST, Tablet, [facility], Partial fill upon patien... Start Date: 04/22/21 Status: Ordered ProAir HFA 90 mcg/inh inhalation aerosol with adapter 2, puffs, Inhalation, Every 6 hours, PRN, # 8.5 Gm, Refills 6, Route to Pharmacy Electronically, [id number]_[id number], [facility], 174, cm, 04/14/21 14:32:00 EST, Height Start Date: 04/18/21 Status: Ordered Remeron 15 mg oral tablet 1 tablet = 15 mg, By Mouth, Daily at bedtime, REPLACES ZOLOFT, # 30 tablet, 1 Refills, Maintenance,06/22/20 15:13:00 EST, Tablet, [facility], Partial fill upon patient request if the prescription is for a schedule II opioid drug., 174, cm,... Start Date: 06/22/20 Status: Ordered Spiriva Respimat 1.25 mcg/inh inhalation aerosol 2 puffs, Inhalation, Daily, # 4 Gm, 5 Refills, [facility], 180, cm, 05/03/21 9:32:00 EST,Height, 77, kg, 04/20/21 15:47:00 EST, Dry Weight Start Date: 05/05/21 Status: Ordered Symbicort 160mcg/4.5mcg Inhaler 2, puffs, Inhalation, 2 times a day, # 10.2 Gm, Refills 10, Route to Pharmacy Electronically, NCPDP_[id number], [facility], 180, cm, 05/03/21 9:32:00 EST, Height, [...] 07/12/20 14:43:00 EDT, Route to Pharmacy Electronically, [facility], 174, cm, 07/12/20 14:32:00 EDT, Height, [...]
--- OUTSIDE RECORDS SUMMARY | 2022-09-19 20:56 | XMS_ITS | Continuity of Care Document ---
Author Name Unknown Organization [facility] Trevor lt Address [address] [place] [address]- Care Team Providers Care Liaison Engineer Name Role Phone Aixa BERNABE, Mike Bennett Primary Care Physician [phone] [facility]counter [facility] Date[facility]s): 09/14/20 - 09/21/20 [facility] [address] [place] [address]- Encounter Diagnosis Pain in right eye(Discharge Diagnosis) - 09/14/20 HTN (hypertension)(Discharge Diagnosis) - 09/14/20 Attending Physician: Julia EXTENSION SERVICE ADVISOR, Aisha Hardy Allergies, Adverse Reactions, Alerts Substance Reaction Severity [...] 05/05/20 13:45:00 EST, Route to Pharmacy Electronically, [facility], 174, cm, 03/01/20 11:26:00 EST, Height, 57, kg, 03/19/19 14:07:00 EST, Dry Weight Start Date: 05/05/20 Status: Ordered aspirin 81 mg oral tablet 1 tablet = 81 mg, By Mouth, Daily, PER DR TRISTAN, # 30 tablet, 5 Refills, Maintenance, 10/13/19 13:42:00 EDT, Tablet, [facility], 174, cm, 10/01/19 13:58:00 EDT, Height, [...] Gm, 11 Refills, Maintenance, 05/07/20 10:33:00 EST, [facility], 30, 1 puffs Inhalation 4 times a day,PRN: NEEDED FOR WHEEZING OR SHORTNESS OF BREATH... Start Date: 05/07/20 Status: Ordered cromolyn 4% ophthalmic solution 1 drops, Eye, Left, 4 times a day, # 10 mL, 0 Refills, Maintenance, 08/31/20 9:58:00 EDT, Solution,[facility], Partial fill upon patient request if the prescription is for a schedule II opioid drug., 1 drops Eye, Left 4 times a day, 174, cm... Start Date: 08/31/20 Status: Ordered docusate sodium 100 mg oral capsule 1 capsule = 100 mg, By Mouth, 2 times a day, PRN as needed for constipation, # 100 capsule, 2 Refills, Maintenance, 08/17/20 14:09:00 EDT, Capsule, [facility], Partial fill upon patient request if [...] Maintenance, 04/27/2113:59:00 EST, Route to Pharmacy Electronically, [facility], 174, cm, 03/01/20 11:26:00 EST, Height, 57, kg, 03/19/19 14:07:00 EST, Dry Weight Start Date: 04/27/20 Status: Ordered fluticasone 50 mcg/inh nasal spray See Instructions, INSTILL 1 SPRAY INTO EACH NOSTRIL TWICE DAILY, # 16 Gm, 2 Refills, 08/24/20 15:55:00 EDT, [facility], 30, INSTILL 1 SPRAY INTO EACH [...] 1 Refills, Maintenance, 08/17/20 14:11:00 EDT, Capsule, [facility], Partial fill upon patient request if the prescription is for a scheduleII opioid drug., 174, cm, 08/17/20 13:45:00 EDT, He... Start Date: 08/17/20 Status: Ordered losartan 100 mg oral tablet 1 tablet, By Mouth, Daily, # 30 tablet, 11 Refills, Maintenance, 07/12/20 14:44:00 EDT, [facility], 174, cm, 07/12/20 14:32:00 EDT, Height, 57, kg, 03/19/19 14:07:00 EST, Dry Weight Start Date: 07/12/20 Status: Ordered metoprolol 50 mg oral tablet, extended release 50 mg, 1, tablet, By Mouth, Daily, do not crush or chew, # 30 tablet, Refills 11, Tot. Refills 11, Maintenance, 07/12/20 14:44:00 EDT, Route to Pharmacy Electronically, [facility], 174, cm,07/12/20 14:32:00 EDT, Height, 57, kg, 03/19/19 14:... Start Date: 07/12/20 Status: Ordered Nasacort Allergy 24HR 55 mcg/inh nasal spray 2 sprays, Nares, Both, Daily, # 3 each, 0 Refills, Maintenance, 01/08/20 14:50:00 EDT, [facility], 2 sprays Nares, Both Daily, 174, cm, 01/08/20 14:29:00 EDT, Height, 57, kg, 03/19/19 14:07:00 EST, Dry Weight Start Date: 01/08/20 Status: Ordered nicotine 4 mg oral transmucosal lozenge 1 lozenge = 4 mg, By Mouth, Every hour, # 189 lozenge, 11 Refills, Maintenance, 07/12/20 14:49:00 EDT, [facility], 1 lozenge By Mouth Every hour, [...] 1 Refills, Maintenance, 08/24/20 15:56:00 EDT, Tablet, [facility], 174, cm, 08/17/20 13:45:00 EDT, Height, 57, kg, 03/19/19 14:07:00 EST, DryWeight Start Date: 08/24/20 Status: Ordered Remeron 15 mg oral tablet 1 tablet = 15 mg, By Mouth, Daily at bedtime, REPLACES ZOLOFT, # 30 tablet, 1 Refills, Maintenance,06/22/20 15:13:00 EST, Tablet, [facility], Partial fill upon patient request if the prescription is for a schedule II opioid drug., 174, cm,... Start Date: 06/22/20 Status: Ordered Singulair 10 mg oral tablet 10 mg, 1, tablet, By Mouth, Daily at bedtime, PER ARPIT DUNN, # 30 tablet, Refills 5, Tot. Refills 5, Maintenance, 05/05/20 13:42:00 EST, Route to Pharmacy Electronically, [facility], 174, cm, 03/01/20 11:26:00 EST, Height, 57, kg, 12... Start Date: 05/05/20 Status: Ordered Spiriva Respimat 1.25 mcg/inh inhalation aerosol 2 puffs, Inhalation, Daily, # 4 Gm, 11 Refills, Maintenance, 05/25/20 13:51:00 EST, Aerosol, [facility], Partial fill upon patient request if the prescription is for a schedule II opioid drug., 174, cm, 05/07/20 10:13:00 EST, Height, 57, kg,... Start Date: 05/25/20 Status: Ordered Symbicort 160mcg/4.5mcg Inhaler 2, puffs, Inhalation, 2 times a day, # 1 each, Refills 11, Tot. Refills 11, Maintenance, 05/25/20 13:51:00 EST, Aerosol, Route to Pharmacy Electronically, [id number], [facility], 174,cm, 05/07/20 10:13:00 EST, Height, 57, kg, 03/19/19... Start Date: 05/25/20 Status: Ordered traZODone 50 mg oral tablet 100 mg, 2, tablet, By Mouth, Daily at bedtime, # 60 tablet, Refills 11, Tot. Refills 11, Maintenance, 07/12/20 14:43:00 EDT, Route to Pharmacy Electronically, [facility], 174, cm, 07/12/20 14:32:00 EDT, Height, 57, kg, 03/19/19 14:07:00 EST,... Start Date: 07/12/20 Status: Ordered Tylenol Extra Strength 500 mg oral tablet See Instructions, PRN for pain, 1 or 2 tablet By Mouth 3 times a day PER DR TRISTAN, # 100 tablet, 11 Refills, Maintenance, 06/08/20 10:22:00 EST, Tablet, [facility], 174, cm, 06/08/20 9:48:00 EST, Height, 57, kg, 03/19/19 14:07:00 EST, Dry Weight Start Date: 06/08/20 Status: Ordered ZyrTEC 10 mg oral tablet 1 tablet = 10 mg, By Mouth, Daily, # 30 tablet, 5 Refills, Maintenance, 03/08/20 8:02:00 EST, Tablet, [facility], 174, cm, 03/01/20 11:26:00 EST, Height, [...] Dates Health Status Cl inical Service Informant Pain in right eye Discharge Diagnosis 09/14/20 HTN (hypertension) Discharge Diagnosis 09/14/20 Vital Signs Most recent to oldest [Reference Range]: 1 2 Height 174 cm (09/14/20 2:37 PM) 174 cm (09/14/20 1:54 PM) Weight 64.3 kg (09/14/20 1:54 PM) Oxygen Saturation [94-100 %] 96 % (09/14/20 1:54 PM) Pulse Rate [55-90 bpm] 68 bpm (09/14/20 1:54 PM) Body Mass Index [18.5-24.99] 21.24 (09/14/20 1:54 PM) Blood Pressure [90-138/55-84 mm Hg] 132/ 72mm Hg (09/14/20 2:37 PM) 140/84mm Hg *H* (09/14/20 1:54 PM) Blood pressure sites Arm, left (09/14/20 2:37 PM) Social History Social History Type Response Smoking Status 5-9 cigarettes (betw een 1/4 to 1/2 pack)/day in last 30 days entered on: 05/26/19 Sex
--- OUTSIDE RECORDS SUMMARY | 2022-09-19 20:56 | XMS_ITS | Continuity of Care Document ---
Author Name Unknown Organization [facility] Trevor lt Address [address] [place] [address]- Care Team Providers Care Cargo Station Worker Name Role Phone Mike Kruse MD Primary Care Physician [place] [facility] [place]17[place] 12/22/21 [facility] [address] [place] [address]- Attending Physician: Rachell Shannon NP Referring Physician: [...] 5 Refills, Maintenance, 10/28/21 14:18:00 EDT, Solution, [facility]/pharmacy #[id number], 165, cm, 10/28/21 4:51:00 EDT, Height, 60.5, kg, 10/26/21 13:16:00 EDT, Dry Weight Start Date: 10/28/21 Status: Ordered amLODIPine 5 mg oral tablet 5 mg, 1, tablet, By Mouth, Daily, # 90 tablet, Refills 1, Tot. Refills 1, Soft Stop, 10/19/21 9:10:00 EDT, Route to Pharmacy Electronically, [facility]/pharmacy #1230, 180, cm, 09/26/21 10:49:00 EDT, Height, 77, kg, 04/20/21 15:47:00 EST, Dry Weight Start Date: 10/19/21 Status: Ordered Aspirin Low Dose 81 mg oral delayed release tablet 1 tablet, By Mouth, Daily, # 30 tablet, 11 Refills, 10/19/21 9:10:00 EDT, [facility]/pharmacy #1230, 180, cm, 09/26/21 10:49:00 EDT, [...] Gm, 0 Refills, Maintenance, 12/20/21 15:24:00 EDT, [facility], 30, INHALE 1 PUFF BY MOUTH FOUR TIMESDAILY NEEDED FOR WHEEZE OR SHORTNESS OF BREATH,... Start Date: 12/20/21 Status: Ordered fluticasone 50 mcg/inh nasal spray See Instructions, USE 1 SPRAY IN EACH NOSTRIL TWICE A DAY, # 16 each, 5 Refills, Maintenance, 12/19/21 15:27:00 EDT, [facility], 30, USE 1 SPRAY IN EACH NOSTRIL TWICE A DAY, 162, cm, 12/16/21 14:39:00 EDT, Height, 59.5, kg, 12/16/21 0:28:00... Start Date: 12/19/21 Status: Ordered guaiFENesin 400 mg oral tablet 1 tablet = 400 mg, By Mouth, 4 times a day, # 120 tablet, 5 Refills, Maintenance, 10/28/21 14:19:00EDT, Tablet, [facility]/pharmacy #1230, 165, cm, 10/28/21 4:51:00 EDT, [...] tablet, 5 Refills, Maintenance, 10/19/21 9:10:00 EDT, [facility]/pharmacy #1230, 180, cm, 09/26/21 10:49:00 EDT, Height, 77, kg, 04/20/21 15:47:00 EST, Dry Weight Start Date: 10/19/21 Status: Ordered magnesium oxide 400 mg oral tablet 1 tablet, By Mouth, Daily, # 30 tablet, 6 Refills, Maintenance, 10/19/21 9:10:00 EDT, [facility]/pharmacy #1230, 180, cm, 09/26/21 10:49:00 EDT, Height, 77, kg, 04/20/21 15:47:00 EST, Dry Weight Start Date: 10/19/21 Stop Date: 10/19/21 Status: Ordered Metoprolol Succinate ER 50 mg oral tablet, extended release 1 tablet, By Mouth, Daily, INSTR:DO NOT CRUSH OR CHEW, # 30 tablet, 5 Refills, 10/19/21 9:10:00 EDT, [facility]/pharmacy #1230, 180, cm, 09/26/21 10:49:00 EDT, Height, 77, kg, 04/20/21 15:47:00 EST, Dry Weight Start Date: 10/19/21 Status: Ordered MiraLax oral powder for reconstitution = 17 Gm, By Mouth, 2 times a day, dissolve in water before taking, # 527 Gm, 11 Refills, Maintenance, 10/19/21 9:10:00 EDT, REC Powder, [facility]/pharmacy #1230, Partial fill upon patient request if the prescription is for a schedule II opioid drug., 17 Gm... Start Date: 10/19/21 Status: Ordered montelukast 10 mg oral tablet See Instructions, TAKE 1 TABLET BY MOUTH EVERY DAY AT BEDTIME, # 30 tablet, Refills 5, Maintenance,12/19/21 15:29:00 EDT, Instructions Replace Required Details, Route to Pharmacy Electronically, [facility], 162, cm, 12/16/21 14:39:00 EDT, H... Start Date: 12/19/21 Status: Ordered omeprazole 20 mg oral delayed release tablet 1 tablet = 20 mg, By Mouth, Daily, # 30 tablet, 11 Refills, Maintenance, 07/10/22 15:48:00 EDT, CR Tablet, [facility]/pharmacy #1230, Partial fill upon patient request if the prescription is for a schedule II opioid drug., 180, cm, 09/26/21 10:49:00 EDT, Hei... Start Date: 07/10/22 Stop Date: 07/05/23 Status: Ordered Plavix 75 mg oral tablet 75 mg, 1, tablet, By Mouth, Daily, # 90 tablet, Refills 1, Tot. Refills 1, Maintenance, 11/18/21 16:53:00 EDT, Route to Pharmacy Electronically, [facility]/pharmacy #1230, Partial fill upon patient request if the prescription is for a schedule II opioid drug... Start Date: 11/18/21 Status: Ordered pravastatin 40 mg oral tablet See Instructions, TAKE 1 TABLET BY MOUTH EVERY DAY, # 30 tablet, 5 Refills, Maintenance, 12/19/21 15:29:00 EDT, [facility], 162, cm, 12/16/21 14:39:00 EDT, Height, [...] 0 Refills, Maintenance, 12/13/21 12:37:00 EDT, Tablet, [facility]... Start Date: 12/13/21 Status: Ordered ProAir [...] 12/13/21 12:40:00 EDT, Route to Pharmacy Electronically, [id number], [facility],162, cm, 12/13/21 4:46:00 EDT, Height, 60.3, kg, 08... Start Date: 12/13/21 Status: Ordered riboflavin 400 mg oral capsule 1 capsule = 400 mg, By Mouth, Daily, # 30 capsule, 5 Refills, Maintenance, 10/19/21 9:10:00 EDT, [facility]/pharmacy #1230, Partial fill upon patient request if the prescription is for a schedule II opioid drug., 180, cm, 09/26/21 10:49:00 EDT, Height, 77, k... Start Date: 10/19/21 Status: Ordered SEROquel 25 mg oral tablet 25 mg, 1, tablet, By Mouth, Daily at bedtime, # 30 tablet, Refills 5, Tot. Refills 5, Maintenance, 10/28/21 14:23:00 EDT, [facility] 165, cm, 10/28/21 4:51:00 EDT, Height, 60.5, kg, 10/26/21 13:16:00 EDT, Dry... Start Date: 10/28/21 Status: Ordered Spiriva Respimat 1.25 mcg/inh inhalation aerosol 2 puffs, Inhalation, Daily, # 4 Gm, 5 Refills, 10/19/21 9:10:00 EDT, [facility]/pharmacy #1230, 180, cm, 09/26/21 10:49:00 EDT, Height, 77, kg, 04/20/21 15:47:00 EST, Dry Weight Start Date: 10/19/21 Status: Ordered Symbicort 160mcg/4.5mcg Inhaler 2, puffs, Inhalation, 2 times a day, # 10.2 Gm, Refills 10, Tot. Refills 10, 10/19/21 9:10:00 EDT, Route to Pharmacy Electronically, [id number], [facility]/pharmacy #1230, 180, cm,09/26/21 10:49:00 EDT, Height, 77, kg, 04/20/21 15:... Start Date: 10/19/21 Status: Ordered tamsulosin 0.4 mg oral capsule 1, capsule, By Mouth, Daily, # 30 capsule, Refills 4, Tot. Refills 4, Maintenance, 10/19/21 9:10:00EDT, Route to Pharmacy Electronically, [facility]/pharmacy #1230, 180, cm, 09/26/21 10:49:00 EDT, Height, 77, kg, 04/20/21 15:47:00 EST, Dry Weight Start Date: 10/19/21 Status: Ordered venlafaxine 37.5 mg oral capsule, extended release 37.5 mg, 1, capsule, By Mouth, Daily, # 30 capsule, Refills 1, Tot. Refills 1, Maintenance, 10/19/21 9:10:00 EDT, Route to Pharmacy Electronically, [facility]/pharmacy #1230, Partial fill upon patient request [...] Team Personnel Name: Mike Kruse MD Address: [address] [place] [id number]
--- OUTSIDE RECORDS SUMMARY | 2022-09-19 20:57 | XMS_ITS | Continuity of Care Document ---
Author Name Unknown Organization [facility] Address [address] [place] [address]- Care Team Providers Care Neuro Intensivist Physician Name Role Phone Mike Tristan MD Primary Care Physician [facility] Date(s): 03/18/19 - 05/30/19 [facility] [address] [place] [address]- [facility] Attending Physician: Kenyon Perez MD Allergies, Adverse Reactions, Alerts Substance Reaction [...] 02/10/19 13:40:35 EDT, Route to Pharmacy Electronically, NCPDP_[id number], [facility] [address] [facility] Start Date: 02/10/19 Stop Date: 06/10/19 Status: Ordered aspirin 81 mg oral tablet 1 tablet = 81 mg, By Mouth, Daily, PER DR TRISTAN, # 30 tablet, 5 Refills, Maintenance, 04/30/19 10:28:00 EST, Tablet, [facility], 174, cm, 03/19/19 14:40:00 EST, Height, [...] Maintenance, 208:38:00 EST, Route to Pharmacy Electronically, [facility], 174, cm, 03/19/19 14:40:00 EST, Height, [...] 04/30/19 10:39:00 EST, Route to Pharmacy Electronically, [facility], 174, cm, 03/19/19 14:40:00 EST, Height, [...] 04/20/19 8:38:00 EST, Route to Pharmacy Electronically, [facility],174, cm, 03/19/19 14:40:00 EST, Height, 57, [...] Maintenance,04/30/19 10:39:00 EST, Route to Pharmacy Electronically, [facility], 174, cm, 03/19/19 14:40:00 EST, Height, [...] 5 Refills, Maintenance, 04/20/19 8:38:00 EST, Tablet, [facility], 174, cm, 03/19/19 14:40:00 EST, Height, [...]
--- OUTSIDE RECORDS SUMMARY | 2022-09-19 20:57 | XMS_ITS | Continuity of Care Document ---
Author Name Unknown Organization [facility] Trevor lt Address [address] [place] [address]- Care Team Providers Care Breakdown Person Name Role Phone Mike Kruse MD Primary Care Physician [facility]counter [facility] Date(s): 08/19/21 - 09/18/21 [facility] [address] [place] [address]- Allergies, Adverse Reactions, Alerts Substance Reaction Severity [...] 11 Refills, Maintenance, 07/15/21 15:49:00 EDT, Solution, [facility], Partial fill upon patient request if the prescription is for a schedule II opioid drug., 180, cm, 04... Start Date: 07/15/21 Status: Ordered amLODIPine 5 mg oral tablet 5 mg, 1, tablet, By Mouth, Daily, # 90 tablet, Refills 1, Tot. Refills 1, Soft Stop, 04/12/21 8:59:00 EST, Route to Pharmacy Electronically, [facility], 174, cm, 03/22/21 13:58:00 EST, Height Start Date: 04/12/21 Status: Ordered Aspirin Low Dose 81 mg oral delayed release tablet 1 tablet, By Mouth, Daily, # 30 tablet, 11 Refills, [facility], 180, cm, 05/03/21 9:32:00EST, Height, 77, kg, 04/20/21 15:47:00 EST, Dry Weight Start Date: 05/06/21 Status: Ordered Claritin 10 mg oral tablet 10 mg, 1, tablet, By Mouth, Daily, REPLACES ZYRTEC, # 30 tablet, Refills 6, Tot. Refills 6, Maintenance, 08/23/21 10:10:00 EDT, Route to Pharmacy Electronically, [facility], Partial fill upon patient request if the prescription is for a sche... Start Date: 08/23/21 Status: Ordered Dulcolax Stool Softener 100 mg oral capsule 1 capsule = 100 mg, By Mouth, 2 times a day, # 60 capsule, 11 Refills, Maintenance, 07/26/21 14:09:00 EDT, Capsule, [facility], Partial fill upon patient request if the prescription is for a schedule II opioid drug., 180, cm, 07/15/21 15:35:... Start Date: 07/26/21 Stop Date: 07/21/22 Status: Ordered fluticasone 50 mcg/inh nasal spray See Instructions, USE 1 SPRAY IN EACH NOSTRIL TWICE A DAY, # 16 Gm, 5 Refills, [facility], 30, USE 1 SPRAY IN EACH NOSTRIL TWICE A DAY, 180, cm, 05/03/21 9:32:00 EST, Height, 77, kg, 04/20/21 15:47:00 EST, Dry Weight Start Date: 05/10/21 Status: Ordered losartan 100 mg oral tablet 1 tablet, By Mouth, Daily, # 30 tablet, 5 Refills, Maintenance, 07/05/21 11:52:00 EDT, [facility], 180, cm, 06/27/21 12:02:00 EDT, Height, 77, kg, 04/20/21 15:47:00 EST, Dry Weight Start Date: 07/05/21 Status: Ordered magnesium oxide 400 mg oral tablet 1 tablet = 400 mg, By Mouth, Daily, # 30 tablet, 0 Refills, Acute 09/23/21 0:00:00 EDT, 08/23/21 10:09:00 EDT, [facility], Partial fill upon patient request if the prescription is for a schedule II opioid drug., 180, cm, 08/23/21 9:21:00 EDT... Start Date: 08/23/21 Stop Date: 09/23/21 Status: Ordered Metoprolol Succinate ER 50 mg oral tablet, extended release 1 tablet, By Mouth, Daily, INSTR:DO NOT CRUSH OR CHEW, # 30 tablet, 5 Refills, [facility], 180, cm, 07/15/21 15:35:00 EDT, Height, 77, kg, 04/20/21 15:47:00 EST, Dry Weight Start Date: 07/29/21 Status: Ordered MiraLax oral powder for reconstitution = 17 Gm, By Mouth, 2 times a day, dissolve in water before taking, # 527 Gm, 11 Refills, Maintenance, 07/26/21 14:09:00 EDT, REC Powder, [facility], Partial fill upon patient request if theprescription is for a schedule II opioid drug., 17... Start Date: 07/26/21 Status: Ordered montelukast 10 mg oral tablet 1, tablet, By Mouth, Daily at bedtime, # 30 tablet, Refills 5, Route to Pharmacy Electronically, [facility], 174, cm, 03/22/21 13:58:00 EST, Height [...] 09/22/21 10:22:00 EDT, 08/11/21 10:22:00 EDT, Patch, [facility], Partial fill upon patient request if the prescriptionis for a schedule II opioid drug., 180, cm, ... Start Date: 08/11/21 Stop Date: 09/22/21 Status: Ordered omeprazole 20 mg oral delayed release tablet 1 tablet = 20 mg, By Mouth, Daily, # 30 tablet, 11 Refills, Maintenance, 07/15/21 15:48:00 EDT, CR Tablet, [facility], Partial fill upon patient request if the prescription is for a schedule II opioid drug., 180, cm, 07/15/21 15:35:00 EDT, H... Start Date: 07/15/21 Stop Date: 07/10/22 Status: Ordered pravastatin 40 mg oral tablet 1 tablet = 40 mg, By Mouth, Daily, # 90 tablet, 1 Refills, Maintenance, 05/10/21 10:26:00 EST, Tablet, [facility], 180, cm, 05/03/21 9:32:00 EST, Height, 77, kg, 04/20/21 15:47:00 EST, Dry Weight Start Date: 05/10/21 Status: Ordered ProAir HFA 90 mcg/inh inhalation aerosol with adapter 2, puffs, Inhalation, Every 6 hours, PRN, # 8.5 Gm, Refills 6, Route to Pharmacy Electronically, NCPDP_[id number], [facility], 174, cm, 04/14/21 14:32:00 EST, Height Start Date: 04/18/21 Status: Ordered riboflavin 400 mg oral capsule 1 capsule = 400 mg, By Mouth, Daily, # 30 capsule, 5 Refills, Maintenance, 08/23/21 10:09:00 EDT, [facility], Partial fill upon patient request if the prescription is for a schedule II opioid drug., 180, cm, 08/23/21 9:21:00 EDT, Height, 77,... Start Date: 08/23/21 Status: Ordered Spiriva Respimat 1.25 mcg/inh inhalation aerosol 2 puffs, Inhalation, Daily, # 4 Gm, 5 Refills, [facility], 180, cm, 05/03/21 9:32:00 EST,Height, 77, kg, 04/20/21 15:47:00 EST, Dry Weight Start Date: 05/05/21 Status: Ordered Symbicort 160mcg/4.5mcg Inhaler 2, puffs, Inhalation, 2 times a day, # 10.2 Gm, Refills 10, Route to Pharmacy Electronically, RIPDP_[id number], [facility], 180, cm, 05/03/21 9:32:00 EST, Height, 77, kg, 04/20/21 15:47:00 EST, Dry Weight Start Date: 05/06/21 Status: Ordered tamsulosin 0.4 mg oral capsule 1, capsule, By Mouth, Daily, # 30 capsule, Refills 4, Tot. Refills 4, Maintenance, 08/25/21 14:22:00 EDT, Route to Pharmacy Electronically, [facility], 180, cm, 08/23/21 9:21:00 EDT, Height, 77, kg, 04/20/21 15:47:00 EST, Dry Weight Start Date: 08/25/21 Status: Ordered traZODone 50 mg oral tablet 100 mg, 2, tablet, By Mouth, Daily at bedtime, # 60 tablet, Refills 5, Tot. Refills 5, Maintenance,08/05/21 10:43:00 EDT, Route to Pharmacy Electronically, [facility], 180, cm, 08/02/21 15:00:00 EDT, Height, 77, kg, 04/20/21 15:47:00 EST, D... Start Date: 08/05/21 Status: Ordered venlafaxine 37.5 mg oral capsule, extended release 37.5 mg, 1, capsule, By Mouth, Daily, # 30 capsule, Refills 0, Tot. Refills 0, Maintenance, 06/27/21 13:03:00 EDT, Route to Pharmacy Electronically, [facility], Partial fill upon patient request if [...] Response Smoking Status 5-9 cigarettes (betw een / to 1/2 pack)/day in last 30 days entered on: 05/26/19 Sex
--- OUTSIDE RECORDS SUMMARY | 2022-09-19 20:57 | XMS_ITS | Continuity of Care Document ---
Author Name Unknown Organization [facility] Address [address] [place] [address]- Care Team Providers Care Car Sealer Name Role Phone Mike Tristan MD Primary Care Physician [phone] Encounter [facility] Date(s): 01/14/21 - 01/21/21 [facility] Adult [address] [place] [address]- Encounter Diagnosis COPD, moderate(Discharge Diagnosis) - 01/14/21 Allergic rhinitis due to pollen(Discharge Diagnosis) - 01/14/21 HTN (hypertension)(Discharge Diagnosis) - 01/14/21 Hypercholesterolemia(Discharge Diagnosis) - 01/14/21 PVD (peripheral vascular disease)(Discharge Diagnosis) - 01/14/21 Tobacco abuse(Discharge Diagnosis) - 01/14/21 Gastroesophageal reflux(Discharge Diagnosis) - 01/14/21 Attending Physician: Mike Tristan MD Allergies, Adverse [...] 01/10/21 16:35:00 EDT, Route to Pharmacy Electronically, [facility], 174, cm, 12/30/20 14:45:00 EDT, Height, 57, kg, 03/19/19 14:07:00 EST, Dry Weight Start Date: 01/10/21 Status: Ordered aspirin 81 mg oral tablet 1 tablet = 81 mg, By Mouth, Daily, PER DR TRISTAN, # 30 tablet, 5 Refills, Maintenance, 10/13/19 13:42:00 EDT, Tablet, [facility], 174, cm, 10/01/19 13:58:00 EDT, Height, 57, kg, 03/19/19 14:07:00 EST, Dry Weight Start Date: 10/13/19 Status: Ordered Combivent Respimat 20 mcg-100 mcg/inh inhalation aerosol 1 puffs, Inhalation, 4 times a day, PRN NEEDED FOR WHEEZING OR SHORTNESS OF BREATH, # 4 Gm, 11 Refills, Maintenance, 05/07/20 10:33:00 EST, [facility], 30, 1 puffs Inhalation 4 times a day,PRN: NEEDED FOR WHEEZING OR SHORTNESS OF BREATH... Start Date: 05/07/20 Status: Ordered docusate sodium 100 mg oral capsule 1 capsule = 100 mg, By Mouth, 2 times a day, PRN as needed for constipation, # 100 capsule, 2 Refills, Maintenance, 08/17/20 14:09:00 EDT, Capsule, [facility], Partial fill upon patient request if [...] 16 Gm, 2 Refills, 08/24/20 15:55:00 EDT, [facility], 30, INSTILL 1 SPRAY INTO EACH [...] 1 Refills, Maintenance, 11/30/20 11:11:00 EDT, Capsule, [facility], Partial fill upon patient request if the prescription is for a scheduleII opioid drug., 174, cm, 11/30/20 10:34:00 EDT, He... Start Date: 11/30/20 Status: Ordered losartan 100 mg oral tablet 1 tablet, By Mouth, Daily, # 30 tablet, 11 Refills, Maintenance, 07/12/20 14:44:00 EDT, [facility], 174, cm, 07/12/20 14:32:00 EDT, Height, 57, kg, 03/19/19 14:07:00 EST, Dry Weight Start Date: 07/12/20 Status: Ordered metoprolol 50 mg oral tablet, extended release 50 mg, 1, tablet, By Mouth, Daily, do not crush or chew, # 30 tablet, Refills 11, Tot. Refills 11, Maintenance, 07/12/20 14:44:00 EDT, Route to Pharmacy Electronically, [facility], 174, cm,07/12/20 14:32:00 EDT, Height, 57, kg, 03/19/19 14:... Start Date: 07/12/20 Status: Ordered montelukast 10 mg oral tablet 1, tablet, By Mouth, Daily at bedtime, # 30 tablet, Refills 4, Tot. Refills 0, Maintenance, 10/20/20 11:07:00 EDT, Route to Pharmacy Electronically, [facility], 174, cm, 09/14/20 14:37:00 EDT, Height, 57, kg, 03/19/19 14:07:00 EST, Dry Weight Start Date: 10/20/20 Status: Ordered Nasacort Allergy 24HR 55 mcg/inh nasal spray 2 sprays, Nares, Both, Daily, # 3 each, 0 Refills, Maintenance, 01/08/20 14:50:00 EDT, [facility], 2 sprays Nares, Both Daily, 174, cm, 01/08/20 14:29:00 EDT, Height, 57, kg, 03/19/19 14:07:00 EST, Dry Weight Start Date: 01/08/20 Status: Ordered nicotine 4 mg oral transmucosal lozenge 1 lozenge = 4 mg, By Mouth, Every hour, # 189 lozenge, 11 Refills, Maintenance, 07/12/20 14:49:00 EDT, [facility], 1 lozenge By Mouth Every hour, 174, cm, 07/12/20 14:32:00 EDT, Height, 57,kg, 03/19/19 14:07:00 EST, Dry Weight Start Date: 07/12/20 Status: Ordered omeprazole 20 mg oral enteric coated capsule 1 capsule, By Mouth, Daily, # 14 capsule, 0 Refills, Maintenance, 07/05/20 8:06:00 EDT, [facility], 174, cm, 06/22/20 14:37:00 EST, Height, 57, kg, 03/19/19 14:07:00 EST, Dry Weight Start Date: 07/05/20 Stop Date: 07/19/20 Status: Ordered pravastatin 40 mg oral tablet 1 tablet = 40 mg, By Mouth, Daily, # 90 tablet, 1 Refills, Maintenance, 08/24/20 15:56:00 EDT, Tablet, [facility], 174, cm, 08/17/20 13:45:00 EDT, Height, 57, kg, 03/19/19 14:07:00 EST, DryWeight Start Date: 08/24/20 Status: Ordered Remeron 15 mg oral tablet 1 tablet = 15 mg, By Mouth, Daily at bedtime, REPLACES ZOLOFT, # 30 tablet, 1 Refills, Maintenance,06/22/20 15:13:00 EST, Tablet, [facility], Partial fill upon patient request if [...] 13:51:00 EST, Aerosol, Route to Pharmacy Electronically, [id number], [facility], 174,cm, 05/07/20 10:13:00 EST, Height, 57, kg, 03/19/19... Start Date: 05/25/20 Status: Ordered tamsulosin 0.4 mg oral capsule 1, capsule, By Mouth, Daily, # 30 capsule, Refills 4, Tot. Refills 0, Maintenance, 10/20/20 11:06:00 EDT, Route to Pharmacy Electronically, [facility], 174, cm, 09/14/20 14:37:00 EDT, Height, 57, kg, 03/19/19 14:07:00 EST, Dry Weight Start Date: 10/20/20 Status: Ordered traZODone 50 mg oral tablet 100 mg, 2, tablet, By Mouth, Daily at bedtime, # 60 tablet, Refills 11, Tot. Refills 11, Maintenance, 07/12/20 14:43:00 EDT, Route to Pharmacy Electronically, [facility], 174, cm, 07/12/20 14:32:00 EDT, Height, 57, kg, 03/19/19 14:07:00 EST,... Start Date: 07/12/20 Status: Ordered Tylenol Extra Strength 500 mg oral tablet See Instructions, PRN for pain, 1 or 2 tablet By Mouth 3 times a day PER DR TRISTAN, # 100 tablet, 11 Refills, Maintenance, 06/08/20 10:22:00 EST, Tablet, [facility], 174, cm, 06/08/20 9:48:00 EST, Height, [...] Clinical Service Informant COPD, moderate Discharge Diagnosis 01/14/21 Allergic rhinitis due to pollen Discharge Diagnosis 01/14/21 HTN (hypertension) Discharge Diagnosis 01/14/21 Hypercholesterolemia Discharge Diagnosis 01/14/21 PVD (peripheral vascular disease) Discharge Diagnosis 01/14/21 Tobacco abuse Discharge Diagnosis 01/14/21 Gastroesophageal reflux Discharge Diagnosis 01/14/21 Vital Signs Most recent to oldest [Reference Range]: 1 Height 174 cm (01/14/21 3:08 PM) Weight 63.9 kg (01/14/21 3:08 PM) Oxygen Saturation [94-100 %] 97 % (01/14/21 3:08 PM) Pulse Rate [55-90 bpm] 81 bpm (01/14/21 3:08 PM) Body Mass Index [18.5-24.99] 21.11 (01/14/21 3:08 PM) Blood Pressure [90-138/55-84 mm Hg] 136/ 62mm Hg (01/14/21 3:08 PM) Mode of Delivery (Oxygen) Room air (01/14/21 3:08 PM) Blood pressure sites Arm, left (01/14/21 3:08 PM) Weight Obtained Via Standing scale (01/14/21 3:08 PM) Social History Social History Type Response Smoking Status 5-9 cigarettes (betw een 1/4 to 1/2 pack)/day in last 30 days entered on: 05/26/19 Sex
--- OUTSIDE RECORDS SUMMARY | 2022-09-19 20:57 | XMS_ITS | Continuity of Care Document ---
Author Name Unknown Organization [facility] Address [address] [place] [id number]- Care Team Providers Care Flight/Transport Nurse Name Role Phone Mike Kruse MD Primary Care Physician Encounter [facility] Date(s): 07/30/21 - 11/27/21 [facility] [address] [place] [id number] Attending Physician: Santiago Finney MD Admitting Physician: Santiago Finney MD Referring Physician: Mike Kruse MD Allergies, [...] 5 Refills, Maintenance, 10/28/21 14:18:00 EDT, Solution, [facility]/pharmacy #1230, 165, cm, 10/28/21 4:51:00 EDT, Height, 60.5, kg, 10/26/21 13:16:00 EDT, Dry Weight Start Date: 10/28/21 Status: Ordered amLODIPine 5 mg oral tablet 5 mg, 1, tablet, By Mouth, Daily, # 90 tablet, Refills 1, Tot. Refills 1, Soft Stop, 10/19/21 9:10:00 EDT, Route to Pharmacy Electronically, [facility]/pharmacy #1230, 180, cm, 09/26/21 10:49:00 EDT, Height, 77, kg, 04/20/21 15:47:00 EST, Dry Weight Start Date: 10/19/21 Status: Ordered Aspirin Low Dose 81 mg oral delayed release tablet 1 tablet, By Mouth, Daily, # 30 tablet, 11 Refills, 10/19/21 9:10:00 EDT, [facility]/pharmacy #1230, 180, cm, 09/26/21 10:49:00 EDT, Height, 77, kg, 04/20/21 15:47:00 EST, Dry Weight Start Date: 10/19/21 Status: Ordered Dulcolax Stool Softener 100 mg oral capsule 1 capsule = 100 mg, By Mouth, 2 times a day, # 60 capsule, 11 Refills, Maintenance, 07/21/22 14:09:00 EDT, Capsule, [facility]/pharmacy #1230, Partial fill upon patient request if the prescription is for a schedule II opioid drug., 180, cm, 09/26/21 10:49:00... Start Date: 07/21/22 Stop Date: 07/16/23 Status: Ordered fluticasone 50 mcg/inh nasal spray See Instructions, USE 1 SPRAY IN EACH NOSTRIL TWICE A DAY, # 16 Gm, 5 Refills, 10/19/21 9:10:00 EDT, [facility]/pharmacy #1230, 30, USE 1 SPRAY IN EACH NOSTRIL TWICE A DAY, 180, cm, 09/26/21 10:49:00 EDT, Height, 77, kg, 04/20/21 15:47:00 EST, Dry Weight Start Date: 10/19/21 Status: Ordered guaiFENesin 100 mg/5 mL oral liquid 5 mL = 100 mg, By Mouth, Every 4 hours, PRN for cough, # 300 mL, 0 Refills, Maintenance, 10/12/21 17:43:00 EDT, Liquid, [facility]/pharmacy #1230, Partial fill upon patient request if the prescription is for a schedule II opioid drug., 180, cm, 09/26/21 10:4... Start Date: 10/12/21 Status: Ordered guaiFENesin 400 mg oral tablet 1 tablet = 400 mg, By Mouth, 4 times a day, # 120 tablet, 5 Refills, Maintenance, 10/28/21 14:19:00EDT, Tablet, [facility]/pharmacy #1230, 165, cm, 10/28/21 4:51:00 EDT, Height, 60.5, kg, 10/26/21 13:16:00EDT, Dry Weight Start Date: 10/28/21 Status: Ordered losartan 100 mg oral tablet 1 tablet, By Mouth, Daily, # 30 tablet, 5 Refills, Maintenance, 10/19/21 9:10:00 EDT, [facility]/pharmacy #1230, 180, cm, 09/26/21 10:49:00 EDT, Height, 77, kg, 04/20/21 15:47:00 EST, Dry Weight Start Date: 10/19/21 Status: Ordered magnesium oxide 400 mg oral tablet 1 tablet, By Mouth, Daily, # 30 tablet, 6 Refills, Maintenance, 10/19/21 9:10:00 EDT, [facility]/pharmacy #1230, 180, cm, 09/26/21 10:49:00 EDT, Height, 77, kg, 04/20/21 15:47:00 EST, Dry Weight Start Date: 10/19/21 Stop Date: 10/19/21 Status: Ordered Metoprolol Succinate ER 50 mg oral tablet, extended release 1 tablet, By Mouth, Daily, INSTR:DO NOT CRUSH OR CHEW, # 30 tablet, 5 Refills, 10/19/21 9:10:00 EDT, [facility]/pharmacy #1230, 180, cm, 09/26/21 10:49:00 EDT, Height, 77, kg, 04/20/21 15:47:00 EST, Dry Weight Start Date: 10/19/21 Status: Ordered MiraLax oral powder for reconstitution = 17 Gm, By Mouth, 2 times a day, dissolve in water before taking, # 527 Gm, 11 Refills, Maintenance, 10/19/21 9:10:00 EDT, REC Powder, [facility]/pharmacy #1230, Partial fill upon patient request if the prescription is for a schedule II opioid drug., 17 Gm... Start Date: 10/19/21 Status: Ordered montelukast 10 mg oral tablet 1, tablet, By Mouth, Daily at bedtime, # 30 tablet, Refills 5, Tot. Refills 5, 10/19/21 9:10:00 EDT, Route to Pharmacy Electronically, [facility]/pharmacy #1230, 180, cm, 09/26/21 10:49:00 EDT, Height, 77, kg, 04/20/21 15:47:00 EST, Dry Weight Start Date: 10/19/21 Status: Ordered omeprazole 20 mg oral delayed release tablet 1 tablet = 20 mg, By Mouth, Daily, # 30 tablet, 11 Refills, Maintenance, 07/10/22 15:48:00 EDT, CR Tablet, [facility]/pharmacy #1230, Partial fill upon patient request if the prescription is for a schedule II opioid drug., 180, cm, 09/26/21 10:49:00 EDT, Hei... Start Date: 07/10/22 Stop Date: 07/05/23 Status: Ordered Plavix 75 mg oral tablet 75 mg, 1, tablet, By Mouth, Daily, # 90 tablet, Refills 1, Tot. Refills 1, Maintenance, 11/18/21 16:53:00 EDT, Route to Pharmacy Electronically, [facility]/pharmacy #1230, Partial fill upon patient request if the prescription is for a schedule II opioid drug... Start Date: 11/18/21 Status: Ordered pravastatin 40 mg oral tablet 1 tablet = 40 mg, By Mouth, Daily, # 90 tablet, 1 Refills, Maintenance, 10/19/21 9:10:00 EDT, Tablet, [facility]/pharmacy #1230, 180, cm, 09/26/21 10:49:00 EDT, Height, 77, kg, 04/20/21 15:47:00 EST, Dry Weight Start Date: 10/19/21 Status: Ordered ProAir HFA 90 mcg/inh inhalation aerosol with adapter 2, puffs, Inhalation, Every 6 hours, PRN, # 8.5 Gm, Refills 6, Tot. Refills 6, 10/19/21 9:10:00 EDT, Route to Pharmacy Electronically, [id number], [facility]/pharmacy #1230, 180, cm, 09/26/21 10:49:00 EDT, Height, 77, kg, 04/20/21 1... Start Date: 10/19/21 Status: Ordered riboflavin 400 mg oral capsule 1 capsule = 400 mg, By Mouth, Daily, # 30 capsule, 5 Refills, Maintenance, 10/19/21 9:10:00 EDT, [facility]/pharmacy #1230, Partial fill upon patient request if the prescription is for a schedule II opioid drug., 180, cm, 09/26/21 10:49:00 EDT, Height, 77, k... Start Date: 10/19/21 Status: Ordered SEROquel 25 mg oral tablet 25 mg, 1, tablet, By Mouth, Daily at bedtime, # 30 tablet, Refills 5, Tot. Refills 5, Maintenance, 10/28/21 14:23:00 EDT, Route to Pharmacy Electronically, [facility]/pharmacy #1230, 165, cm, 10/28/21 4:51:00 EDT, Height, 60.5, kg, 10/26/21 13:16:00 EDT, Dry... Start Date: 10/28/21 Status: Ordered Spiriva Respimat 1.25 mcg/inh inhalation aerosol 2 puffs, Inhalation, Daily, # 4 Gm, 5 Refills, 10/19/21 9:10:00 EDT, [facility]/pharmacy #1230, 180, cm, 09/26/21 10:49:00 EDT, Height, 77, kg, 04/20/21 15:47:00 EST, Dry Weight Start Date: 10/19/21 Status: Ordered Symbicort 160mcg/4.5mcg Inhaler 2, puffs, Inhalation, 2 times a day, # 10.2 Gm, Refills 10, Tot. Refills 10, 10/19/21 9:10:00 EDT, Route to Pharmacy Electronically, [id number], [facility]/pharmacy #1230, 180, cm,09/26/21 10:49:00 EDT, Height, 77, kg, 04/20/21 15:... Start Date: 10/19/21 Status: Ordered tamsulosin 0.4 mg oral capsule 1, capsule, By Mouth, Daily, # 30 capsule, Refills 4, Tot. Refills 4, Maintenance, 10/19/21 9:10:00EDT, Route to Pharmacy Electronically, [facility]/pharmacy #1230, 180, cm, 09/26/21 10:49:00 EDT, Height, 77, kg, 04/20/21 15:47:00 EST, Dry Weight Start Date: 10/19/21 Status: Ordered venlafaxine 37.5 mg oral capsule, extended release 37.5 mg, 1, capsule, By Mouth, Daily, # 30 capsule, Refills 1, Tot. Refills 1, Maintenance, 10/19/21 9:10:00 EDT, Route to Pharmacy Electronically, [facility]/pharmacy #1230, Partial fill upon patient request [...]
--- OUTSIDE RECORDS SUMMARY | 2022-09-19 20:57 | XMS_ITS | Continuity of Care Document ---
Author Name Unknown Organization [facility] Address [address] [place] [address]- Care Team Providers Care Front Office Clerk Name Role Phone Mike Kruse MD Primary Care Physician [phone] Encounter [facility] Date(s): 10/14/21 - 11/13/21 [facility] [address] [place] [address]- Allergies, Adverse Reactions, Alerts Substance Reaction Severity [...] Maintenance, 10/28/21 14:18:00 EDT, Solution, [facility]/pharmacy #1230, 165, cm, 10/28/21 4:51:00 EDT, Height, 60.5, kg, 10/26/21 13:16:00 EDT, Dry Weight Start Date: 10/28/21 Status: Ordered amLODIPine 5 mg oral tablet 5 mg, 1, tablet, By Mouth, Daily, # 90 tablet, Refills 1, Tot. Refills 1, Soft Stop, 10/19/21 9:10:00 EDT, Route to Pharmacy Electronically, [facility]/pharmacy #1230, 180, cm, 09/26/21 10:49:00 EDT, Height, 77, kg, 04/20/21 15:47:00 EST, Dry Weight Start Date: 10/19/21 Status: Ordered Aspirin Low Dose 81 mg oral delayed release tablet 1 tablet, By Mouth, Daily, # 30 tablet, 11 Refills, 10/19/21 9:10:00 EDT, [facility]/pharmacy #1230, 180, cm, 09/26/21 10:49:00 EDT, Height, 77, kg, 04/20/21 15:47:00 EST, Dry Weight Start Date: 10/19/21 Status: Ordered Dulcolax Stool Softener 100 mg oral capsule 1 capsule = 100 mg, By Mouth, 2 times a day, # 60 capsule, 11 Refills, Maintenance, 07/21/22 14:09:00 EDT, Capsule, [facility]/pharmacy #1230, Partial fill upon patient request if the prescription is for a schedule II opioid drug., 180, cm, 09/26/21 10:49:00... Start Date: 07/21/22 Stop Date: 07/16/23 Status: Ordered fluticasone 50 mcg/inh nasal spray See Instructions, USE 1 SPRAY IN EACH NOSTRIL TWICE A DAY, # 16 Gm, 5 Refills, 10/19/21 9:10:00 EDT, [facility]/pharmacy #1230, 30, USE 1 SPRAY IN EACH NOSTRIL TWICE A DAY, 180, cm, 09/26/21 10:49:00 EDT, Height, 77, kg, 04/20/21 15:47:00 EST, Dry Weight Start Date: 10/19/21 Status: Ordered guaiFENesin 100 mg/5 mL oral liquid 5 mL = 100 mg, By Mouth, Every 4 hours, PRN for cough, # 300 mL, 0 Refills, Maintenance, 10/12/21 17:43:00 EDT, Liquid, [facility]/pharmacy #1230, Partial fill upon patient request if the prescription is for a schedule II opioid drug., 180, cm, 09/26/21 10:4... Start Date: 10/12/21 Status: Ordered guaiFENesin 400 mg oral tablet 1 tablet = 400 mg, By Mouth, 4 times a day, # 120 tablet, 5 Refills, Maintenance, 10/28/21 14:19:00EDT, Tablet, [facility]/pharmacy #1230, 165, cm, 10/28/21 4:51:00 EDT, Height, 60.5, kg, 10/26/21 13:16:00EDT, Dry Weight Start Date: 10/28/21 Status: Ordered losartan 100 mg oral tablet 1 tablet, By Mouth, Daily, # 30 tablet, 5 Refills, Maintenance, 10/19/21 9:10:00 EDT, [facility]/pharmacy #1230, 180, cm, 09/26/21 10:49:00 EDT, Height, 77, kg, 04/20/21 15:47:00 EST, Dry Weight Start Date: 10/19/21 Status: Ordered magnesium oxide 400 mg oral tablet 1 tablet, By Mouth, Daily, # 30 tablet, 6 Refills, Maintenance, 10/19/21 9:10:00 EDT, [facility]/pharmacy #1230, 180, cm, 09/26/21 10:49:00 EDT, Height, 77, kg, 04/20/21 15:47:00 EST, Dry Weight Start Date: 10/19/21 Stop Date: 10/19/21 Status: Ordered Metoprolol Succinate ER 50 mg oral tablet, extended release 1 tablet, By Mouth, Daily, INSTR:DO NOT CRUSH OR CHEW, # 30 tablet, 5 Refills, 10/19/21 9:10:00 EDT, [facility]/pharmacy #1230, 180, cm, 09/26/21 10:49:00 EDT, Height, 77, kg, 04/20/21 15:47:00 EST, Dry Weight Start Date: 10/19/21 Status: Ordered MiraLax oral powder for reconstitution = 17 Gm, By Mouth, 2 times a day, dissolve in water before taking, # 527 Gm, 11 Refills, Maintenance, 10/19/21 9:10:00 EDT, REC Powder, [facility]/pharmacy #1230, Partial fill upon patient request if the prescription is for a schedule II opioid drug., 17 Gm... Start Date: 10/19/21 Status: Ordered montelukast 10 mg oral tablet 1, tablet, By Mouth, Daily at bedtime, # 30 tablet, Refills 5, Tot. Refills 5, 10/19/21 9:10:00 EDT, Route to Pharmacy Electronically, [facility]/pharmacy #1230, 180, cm, 09/26/21 10:49:00 EDT, Height, 77, kg, 04/20/21 15:47:00 EST, Dry Weight Start Date: 10/19/21 Status: Ordered omeprazole 20 mg oral delayed release tablet 1 tablet = 20 mg, By Mouth, Daily, # 30 tablet, 11 Refills, Maintenance, 07/10/22 15:48:00 EDT, CR Tablet, [facility]/pharmacy #1230, Partial fill upon patient request if the prescription is for a schedule II opioid drug., 180, cm, 09/26/21 10:49:00 EDT, Hei... Start Date: 07/10/22 Stop Date: 07/05/23 Status: Ordered pravastatin 40 mg oral tablet 1 tablet = 40 mg, By Mouth, Daily, # 90 tablet, 1 Refills, Maintenance, 10/19/21 9:10:00 EDT, Tablet, [facility]/pharmacy #1230, 180, cm, 09/26/21 10:49:00 EDT, Height, 77, kg, 04/20/21 15:47:00 EST, Dry Weight Start Date: 10/19/21 Status: Ordered predniSONE 20 mg oral tablet See Instructions, Take at 7-8 AM 2 tablet QD x 10 D, then 1 tab QD x 10 D, # 30 tablet, 0 Refills, Acute 11/17/21 12:00:00 EDT, 10/28/21 14:20:00 EDT, Tablet, [facility]/pharmacy #1230, 165, cm, 10/28/21 4:51:00 EDT, Height, 60.5, kg, 10/26/21 13:16:00 EDT,... Start Date: 10/28/21 Stop Date: 11/17/21 Status: Ordered ProAir HFA 90 mcg/inh inhalation aerosol with adapter 2, puffs, Inhalation, Every 6 hours, PRN, # 8.5 Gm, Refills 6, Tot. Refills 6, 10/19/21 9:10:00 EDT, Route to Pharmacy Electronically, [id number], [facility]/pharmacy #1230, 180, cm, 09/26/21 10:49:00 EDT, Height, 77, kg, 04/20/21 1... Start Date: 10/19/21 Status: Ordered riboflavin 400 mg oral capsule 1 capsule = 400 mg, By Mouth, Daily, # 30 capsule, 5 Refills, Maintenance, 10/19/21 9:10:00 EDT, [facility]/pharmacy #1230, Partial fill upon patient request if the prescription is for a schedule II opioid drug., 180, cm, 09/26/21 10:49:00 EDT, Height, 77, k... Start Date: 10/19/21 Status: Ordered SEROquel 25 mg oral tablet 25 mg, 1, tablet, By Mouth, Daily at bedtime, # 30 tablet, Refills 5, Tot. Refills 5, Maintenance, 10/28/21 14:23:00 EDT, Route to Pharmacy Electronically, [facility]/pharmacy #1230, 165, cm, 10/28/21 4:51:00 EDT, Height, 60.5, kg, 10/26/21 13:16:00 EDT, Dry... Start Date: 10/28/21 Status: Ordered Spiriva Respimat 1.25 mcg/inh inhalation aerosol 2 puffs, Inhalation, Daily, # 4 Gm, 5 Refills, 10/19/21 9:10:00 EDT, [facility]/pharmacy #1230, 180, cm, 09/26/21 10:49:00 EDT, Height, 77, kg, 04/20/21 15:47:00 EST, Dry Weight Start Date: 10/19/21 Status: Ordered Symbicort 160mcg/4.5mcg Inhaler 2, puffs, Inhalation, 2 times a day, # 10.2 Gm, Refills 10, Tot. Refills 10, 10/19/21 9:10:00 EDT, Route to Pharmacy Electronically, [id number], [facility]/pharmacy #1230, 180, cm,09/26/21 10:49:00 EDT, Height, 77, kg, 04/20/21 15:... Start Date: 10/19/21 Status: Ordered tamsulosin 0.4 mg oral capsule 1, capsule, By Mouth, Daily, # 30 capsule, Refills 4, Tot. Refills 4, Maintenance, 10/19/21 9:10:00EDT, Route to Pharmacy Electronically, [facility]/pharmacy #1230, 180, cm, 09/26/21 10:49:00 EDT, Height, 77, kg, 04/20/21 15:47:00 EST, Dry Weight Start Date: 10/19/21 Status: Ordered venlafaxine 37.5 mg oral capsule, extended release 37.5 mg, 1, capsule, By Mouth, Daily, # 30 capsule, Refills 1, Tot. Refills 1, Maintenance, 10/19/21 9:10:00 EDT, Route to Pharmacy Electronically, [facility]/pharmacy #1230, Partial fill upon patient request [...]
--- OUTSIDE RECORDS SUMMARY | 2022-09-19 20:57 | XMS_ITS | Continuity of Care Document ---
Author Name Unknown Organization [facility] [place] Trevor lt Address [address] [place] [address]- Care Team Providers Care Dry Kiln Operator Helper Name Role Phone Mike Kruse MD Primary Care Physician [phone] Encounter [facility] [place] [place] Date(s): 09/26/21 - 10/03/21 [facility] [place] [address] [place] [address]- Attending Physician: Mike Kruse MD Referring Physician: Rachell Shannon NP Allergies, Adverse Reactions, [...] 11 Refills, Maintenance, 07/15/21 15:49:00 EDT, Solution, [facility], Partial fill upon patient request if the prescription is for a schedule II opioid drug., 180, cm, 04... Start Date: 07/15/21 Status: Ordered amLODIPine 5 mg oral tablet 5 mg, 1, tablet, By Mouth, Daily, # 90 tablet, Refills 1, Tot. Refills 1, Soft Stop, 04/12/21 8:59:00 EST, Route to Pharmacy Electronically, [facility], 174, cm, 03/22/21 13:58:00 EST, Height Start Date: 04/12/21 Status: Ordered Aspirin Low Dose 81 mg oral delayed release tablet 1 tablet, By Mouth, Daily, # 30 tablet, 11 Refills, [facility], 180, cm, 05/03/21 9:32:00EST, Height, 77, kg, 04/20/21 15:47:00 EST, Dry Weight Start Date: 05/06/21 Status: Ordered Claritin 10 mg oral tablet 10 mg, 1, tablet, By Mouth, Daily, REPLACES ZYRTEC, # 30 tablet, Refills 6, Tot. Refills 6, Maintenance, 08/23/21 10:10:00 EDT, Route to Pharmacy Electronically, [facility], Partial fill upon patient request if the prescription is for a sche... Start Date: 08/23/21 Status: Ordered Dulcolax Stool Softener 100 mg oral capsule 1 capsule = 100 mg, By Mouth, 2 times a day, # 60 capsule, 11 Refills, Maintenance, 07/26/21 14:09:00 EDT, Capsule, [facility], Partial fill upon patient request if the prescription is for a schedule II opioid drug., 180, cm, 07/15/21 15:35:... Start Date: 07/26/21 Stop Date: 07/21/22 Status: Ordered fluticasone 50 mcg/inh nasal spray See Instructions, USE 1 SPRAY IN EACH NOSTRIL TWICE A DAY, # 16 Gm, 5 Refills, [facility], 30, USE 1 SPRAY IN EACH NOSTRIL TWICE A DAY, 180, cm, 05/03/21 9:32:00 EST, Height, 77, kg, 04/20/21 15:47:00 EST, Dry Weight Start Date: 05/10/21 Status: Ordered losartan 100 mg oral tablet 1 tablet, By Mouth, Daily, # 30 tablet, 5 Refills, Maintenance, 07/05/21 11:52:00 EDT, [facility], 180, cm, 06/27/21 12:02:00 EDT, Height, 77, kg, 04/20/21 15:47:00 EST, Dry Weight Start Date: 07/05/21 Status: Ordered magnesium oxide 400 mg oral tablet 1 tablet, By Mouth, Daily, # 30 tablet, 6 Refills, [facility], 180, cm, 09/26/21 10:49:00EDT, Height, 77, kg, 04/20/21 15:47:00 EST, Dry Weight Start Date: 09/27/21 Status: Ordered meclizine 25 mg oral tablet 1 tablet = 25 mg, By Mouth, 3 times a day, PRN for dizziness, # 30 tablet, 0 Refills, Acute 10/10/21 0:00:00 EDT, 09/26/21 11:21:00 EDT, Tablet, [facility], Partial fill upon patient request if the prescription is for a schedule II opioid . Start Date: 09/26/21 Stop Date: 10/10/21 Status: Ordered Metoprolol Succinate ER 50 mg oral tablet, extended release 1 tablet, By Mouth, Daily, INSTR:DO NOT CRUSH OR CHEW, # 30 tablet, 5 Refills, [facility], 180, cm, 07/15/21 15:35:00 EDT, Height, 77, kg, 04/20/21 15:47:00 EST, Dry Weight Start Date: 07/29/21 Status: Ordered MiraLax oral powder for reconstitution = 17 Gm, By Mouth, 2 times a day, dissolve in water before taking, # 527 Gm, 11 Refills, Maintenance, 07/26/21 14:09:00 EDT, REC Powder, [facility], Partial fill upon patient request if theprescription is for a schedule II opioid drug., 17... Start Date: 07/26/21 Status: Ordered montelukast 10 mg oral tablet 1, tablet, By Mouth, Daily at bedtime, # 30 tablet, Refills 5, Route to Pharmacy Electronically, [facility], 174, cm, 03/22/21 13:58:00 EST, Height [...] 1 Refills, Maintenance, 05/10/21 10:26:00 EST, Tablet, [facility], 180, cm, 05/03/21 9:32:00 EST, Height, 77, kg, 04/20/21 15:47:00 EST, Dry Weight Start Date: 05/10/21 Status: Ordered ProAir HFA 90 mcg/inh inhalation aerosol with adapter 2, puffs, Inhalation, Every 6 hours, PRN, # 8.5 Gm, Refills 6, Route to Pharmacy Electronically, [id number], [facility], 174, cm, 04/14/21 14:32:00 EST, Height Start Date: 04/18/21 Status: Ordered riboflavin 400 mg oral capsule 1 capsule = 400 mg, By Mouth, Daily, # 30 capsule, 5 Refills, Maintenance, 08/23/21 10:09:00 EDT, [facility], Partial fill upon patient request if the prescription is for a schedule II opioid drug., 180, cm, 08/23/21 9:21:00 EDT, Height, 77,... Start Date: 08/23/21 Status: Ordered Spiriva Respimat 1.25 mcg/inh inhalation aerosol 2 puffs, Inhalation, Daily, # 4 Gm, 5 Refills, 10/03/21 11:24:00 EDT, [facility], 180, cm, 09/26/21 10:49:00 EDT, Height, 77, kg, 04/20/21 15:47:00 EST, Dry Weight Start Date: 10/03/21 Status: Ordered Symbicort 160mcg/4.5mcg Inhaler 2, puffs, Inhalation, 2 times a day, # 10.2 Gm, Refills 10, Route to Pharmacy Electronically, [id number]_[id number], [facility], 180, cm, 05/03/21 9:32:00 EST, Height, 77, kg, 04/20/21 15:47:00 EST, Dry Weight Start Date: 05/06/21 Status: Ordered tamsulosin 0.4 mg oral capsule 1, capsule, By Mouth, Daily, # 30 capsule, Refills 4, Tot. Refills 4, Maintenance, 08/25/21 14:22:00 EDT, Route to Pharmacy Electronically, [facility], 180, cm, 08/23/21 9:21:00 EDT, Height, 77, kg, 04/20/21 15:47:00 EST, Dry Weight Start Date: 08/25/21 Status: Ordered traZODone 50 mg oral tablet 100 mg, 2, tablet, By Mouth, Daily at bedtime, # 60 tablet, Refills 5, Tot. Refills 5, Maintenance,08/05/21 10:43:00 EDT, Route to Pharmacy Electronically, [facility], 180, cm, 08/02/21 15:00:00 EDT, Height, 77, kg, 04/20/21 15:47:00 EST, D... Start Date: 08/05/21 Status: Ordered venlafaxine 37.5 mg oral capsule, extended release 37.5 mg, 1, capsule, By Mouth, Daily, # 30 capsule, Refills 0, Tot. Refills 0, Maintenance, 06/27/21 13:03:00 EDT, Route to Pharmacy Electronically, [facility], Partial fill upon patient request if [...] oldest [Reference Range]: 1 Height 180 cm (09/26/21 10:49 AM) Social History Social History Type Response Smoking Status Former smoker, quit more than 30 days ago entered on: 09/26/21 Sex
--- OUTSIDE RECORDS SUMMARY | 2022-09-19 20:57 | XMS_ITS | Continuity of Care Document ---
Author Name Unknown Organization [facility] ter Address [address] [place] [address]- Care Team Providers Care Laundry Bag Punch Operator Name Role Phone Mike Tristan MD Primary Care Physician Encounter [facility] Date(s): 01/27/21 - 03/17/[address] [address] Attending Physician: Mike Tristan MD Admitting Physician: Mike Tristan MD Referring Physician: Mike Tristan MD Allergies, [...] 01/10/21 16:35:00 EDT, Route to Pharmacy Electronically, [facility], 174, cm, 12/30/20 14:45:00 EDT, Height, 57, kg, 03/19/19 14:07:00 EST, Dry Weight Start Date: 01/10/21 Status: Ordered Aspirin Low Dose 81 mg oral delayed release tablet 1 tablet, By Mouth, Daily, # 30 tablet, 2 Refills, [facility], 174, cm, 01/14/21 15:08:00EDT, Height, 57, kg, 03/19/19 14:07:00 EST, Dry Weight Start Date: 01/25/21 Status: Ordered Combivent Respimat 20 mcg-100 mcg/inh inhalation aerosol 1 puffs, Inhalation, 4 times a day, PRN NEEDED FOR WHEEZING OR SHORTNESS OF BREATH, # 4 Gm, 11 Refills, Maintenance, 05/07/20 10:33:00 EST, [facility], 30, 1 puffs Inhalation 4 times [...] A DAY, # 16 Gm, 1 Refills, [facility], 30, USE 1 SPRAY IN EACH [...] tablet, 11 Refills, Maintenance, 07/12/20 14:44:00 EDT, [facility], 174, cm, 07/12/20 14:32:00 EDT, Height, 57, kg, 03/19/19 14:07:00 EST, Dry Weight Start Date: 07/12/20 Status: Ordered metoprolol 50 mg oral tablet, extended release 50 mg, 1, tablet, By Mouth, Daily, do not crush or chew, # 30 tablet, Refills 11, Tot. Refills 11, Maintenance, 07/12/20 14:44:00 EDT, Route to Pharmacy Electronically, [facility], 174, cm,07/12/20 14:32:00 EDT, Height, 57, kg, 03/19/19 14:... Start Date: 07/12/20 Status: Ordered montelukast 10 mg oral tablet 1, tablet, By Mouth, Daily at bedtime, # 30 tablet, Refills 4, Tot. Refills 0, Maintenance, 10/20/20 11:07:00 EDT, Route to Pharmacy Electronically, [facility], 174, cm, 09/14/20 14:37:00 EDT, Height, 57, kg, 03/19/19 14:07:00 EST, Dry Weight Start Date: 10/20/20 Status: Ordered Nasacort Allergy 24HR 55 mcg/inh nasal spray 2 sprays, Nares, Both, Daily, # 3 each, 0 Refills, Maintenance, 01/08/20 14:50:00 EDT, [facility], 2 sprays Nares, Both Daily, 174, cm, 01/08/20 14:29:00 EDT, Height, 57, kg, 03/19/19 14:07:00 EST, Dry Weight Start Date: 01/08/20 Status: Ordered nicotine 4 mg oral transmucosal lozenge 1 lozenge = 4 mg, By Mouth, Every hour, # 189 lozenge, 11 Refills, Maintenance, 07/12/20 14:49:00 EDT, [facility], 1 lozenge By Mouth Every hour, 174, cm, 07/12/20 14:32:00 EDT, Height, 57,kg, 03/19/19 14:07:00 EST, Dry Weight Start Date: 07/12/20 Status: Ordered omeprazole 20 mg oral enteric coated capsule 1 capsule, By Mouth, Daily, # 14 capsule, 0 Refills, Maintenance, 07/05/20 8:06:00 EDT, [facility], 174, cm, 06/22/20 14:37:00 EST, Height, 57, kg, 03/19/19 14:07:00 EST, Dry Weight Start Date: 07/05/20 Stop Date: 07/19/20 Status: Ordered pravastatin 40 mg oral tablet 1 tablet = 40 mg, By Mouth, Daily, # 90 tablet, 1 Refills, Maintenance, 08/24/20 15:56:00 EDT, Tablet, [facility], 174, cm, 08/17/20 13:45:00 EDT, Height, 57, kg, 03/19/19 14:07:00 EST, DryWeight Start Date: 08/24/20 Status: Ordered Remeron 15 mg oral tablet 1 tablet = 15 mg, By Mouth, Daily at bedtime, REPLACES ZOLOFT, # 30 tablet, 1 Refills, Maintenance,06/22/20 15:13:00 EST, Tablet, [facility], Partial fill upon patient request if [...] 13:51:00 EST, Aerosol, Route to Pharmacy Electronically, [id number]_[id number], [facility], 174,cm, 05/07/20 10:13:00 EST, Height, 57, kg, 03/19/19... Start Date: 05/25/20 Status: Ordered tamsulosin 0.4 mg oral capsule 1, capsule, By Mouth, Daily, # 30 capsule, Refills 5, Route to Pharmacy Electronically, [facility], 174, cm, 03/15/21 10:16:00 EST, Height, 57, kg, 03/19/19 14:07:00 EST, Dry Weight Start Date: 03/15/21 Status: Ordered Tessalon Perles 100 mg oral capsule 1 capsule = 100 mg, By Mouth, 3 times a day, for 7 days, # 21 capsule, 0 Refills, Acute 03/22/21 10:33:00 EST, 03/15/21 10:33:00 EST, Capsule, [facility], Partial fill upon patient request if the prescription is for a schedule II opioid drug... Start Date: 03/15/21 Stop Date: 03/22/21 Status: Ordered traZODone 50 mg oral tablet 100 mg, 2, tablet, By Mouth, Daily at bedtime, # 60 tablet, Refills 11, Tot. Refills 11, Maintenance, 07/12/20 14:43:00 EDT, Route to Pharmacy Electronically, [facility], 174, cm, 07/12/20 14:32:00 EDT, Height, 57, kg, 03/19/19 14:07:00 EST,... Start Date: 07/12/20 Status: Ordered Tylenol Extra Strength 500 mg oral tablet See Instructions, PRN for pain, 1 or 2 tablet By Mouth 3 times a day PER DR TRISTAN, # 100 tablet, 11 Refills, Maintenance, 06/08/20 10:22:00 EST, Tablet, [facility], 174, cm, 06/08/20 9:48:00 EST, Height, [...]
--- OUTSIDE RECORDS SUMMARY | 2022-09-19 20:57 | XMS_ITS | Continuity of Care Document ---
Author Name Unknown Organization [facility] Trevor lt Address [address] [place] [address]- Care Team Providers Care Hotel Or Motel Room Service Supervisor Name Role Phone Mike Kruse MD Primary Care Physician Encounter [facility] Date(s): 08/05/21 - 09/04/21 [facility] [address] [place] [address]- Allergies, Adverse Reactions, Alerts Substance Reaction Severity [...] 11 Refills, Maintenance, 07/15/21 15:49:00 EDT, Solution, [facility], Partial fill upon patient request if [...] A DAY, # 16 Gm, 5 Refills, [facility], 30, USE 1 SPRAY IN EACH NOSTRIL TWICE A DAY, 180, cm, 05/03/21 9:32:00 EST, Height, 77, kg, 04/20/21 15:47:00 EST, Dry Weight Start Date: 05/10/21 Status: Ordered losartan 100 mg oral tablet 1 tablet, By Mouth, Daily, # 30 tablet, 5 Refills, Maintenance, 07/05/21 11:52:00 EDT, [facility], 180, cm, 06/27/21 12:02:00 EDT, Height, 77, kg, 04/20/21 15:47:00 EST, Dry Weight Start Date: 07/05/21 Status: Ordered magnesium oxide 400 mg oral tablet 1 tablet = 400 mg, By Mouth, Daily, # 30 tablet, 0 Refills, Acute 09/23/21 0:00:00 EDT, 08/23/21 10:09:00 EDT, [facility], Partial fill upon patient request if the prescription is for a schedule II opioid drug., 180, cm, 08/23/21 9:21:00 EDT... Start Date: 08/23/21 Stop Date: 09/23/21 Status: Ordered Metoprolol Succinate ER 50 mg oral tablet, extended release 1 tablet, By Mouth, Daily, INSTR:DO NOT CRUSH OR CHEW, # 30 tablet, 5 Refills, [facility], 180, cm, 07/15/21 15:35:00 EDT, Height, [...] tablet, Refills 5, Route to Pharmacy Electronically, [facility], 174, cm, 03/22/21 13:58:00 EST, Height [...] 09/22/21 10:22:00 EDT, 08/11/21 10:22:00 EDT, Patch, [facility], Partial fill upon patient request [...] 1 Refills, Maintenance, 05/10/21 10:26:00 EST, Tablet, [facility], 180, cm, 05/03/21 9:32:00 EST, Height, 77, kg, 04/20/21 15:47:00 EST, Dry Weight Start Date: 05/10/21 Status: Ordered ProAir HFA 90 mcg/inh inhalation aerosol with adapter 2, puffs, Inhalation, Every 6 hours, PRN, # 8.5 Gm, Refills 6, Route to Pharmacy Electronically, NCPDP_[id number], [facility], 174, cm, 04/14/21 14:32:00 EST, Height Start Date: 04/18/21 Status: Ordered riboflavin 400 mg oral capsule 1 capsule = 400 mg, By Mouth, Daily, # 30 capsule, 5 Refills, Maintenance, 08/23/21 10:09:00 EDT, [facility], Partial fill upon patient request if the prescription is for a schedule II opioid drug., 180, cm, 08/23/21 9:21:00 EDT, Height, 77,... Start Date: 08/23/21 Status: Ordered Spiriva Respimat 1.25 mcg/inh inhalation aerosol 2 puffs, Inhalation, Daily, # 4 Gm, 5 Refills, [facility], 180, cm, 05/03/21 9:32:00 EST,Height, 77, kg, 04/20/21 15:47:00 EST, Dry Weight Start Date: 05/05/21 Status: Ordered Symbicort 160mcg/4.5mcg Inhaler 2, puffs, Inhalation, 2 times a day, # 10.2 Gm, Refills 10, Route to Pharmacy Electronically, [id number], [facility], 180, cm, 05/03/21 9:32:00 EST, Height, 77, kg, 04/20/21 15:47:00 EST, Dry Weight Start Date: 05/06/21 Status: Ordered tamsulosin 0.4 mg oral capsule 1, capsule, By Mouth, Daily, # 30 capsule, Refills 4, Tot. Refills 4, Maintenance, 08/25/21 14:22:00 EDT, Route to Pharmacy Electronically, [facility], 180, cm, 08/23/21 9:21:00 EDT, Height, 77, kg, 04/20/21 15:47:00 EST, Dry Weight Start Date: 08/25/21 Status: Ordered traZODone 50 mg oral tablet 100 mg, 2, tablet, By Mouth, Daily at bedtime, # 60 tablet, Refills 5, Tot. Refills 5, Maintenance,08/05/21 10:43:00 EDT, Route to Pharmacy Electronically, [facility], 180, cm, 08/02/21 15:00:00 EDT, Height, 77, kg, 04/20/21 15:47:00 EST, D... Start Date: 08/05/21 Status: Ordered venlafaxine 37.5 mg oral capsule, extended release 37.5 mg, 1, capsule, By Mouth, Daily, # 30 capsule, Refills 0, Tot. Refills 0, Maintenance, 06/27/21 13:03:00 EDT, Route to Pharmacy Electronically, [facility], Partial fill upon patient request if [...]
--- OUTSIDE RECORDS SUMMARY | 2022-09-19 20:57 | XMS_ITS | Continuity of Care Document ---
Author Name Unknown Organization [facility] ter Address [address] [place] [id number]- Care Team Providers Care Side Puller Name Role Phone Mike Tristan MD Primary Care Physician [phone] Encounter [facility] Date(s): 06/30/19 - 08/09/[address] [address]- [facility] Attending Physician: Rachell Shannon NP Admitting Physician: Mirtha HOOD, Rachell Bennett Referring Physician: Mike Tristan MD Allergies, Adverse [...] 02/10/19 13:40:35 EDT, Route to Pharmacy Electronically, CAPDP_[id number], [facility] - [address] [place] [address] Start Date: 02/10/19 Stop Date: 06/10/19 Status: Ordered aspirin 81 mg oral tablet 1 tablet = 81 mg, By Mouth, Daily, PER DR TRISTAN, # 30 tablet, 5 Refills, Maintenance, 04/30/19 10:28:00 EST, Tablet, [facility], 174, cm, 03/19/19 14:40:00 EST, Height, 57, kg, 03/19/19 14:07:00 EST, Dry Weight Start Date: 04/30/19 Status: Ordered Combivent Respimat 20 mcg-100 mcg/inh inhalation aerosol 1 puffs, Inhalation, 4 times a day, PRN Wheezing/Shortness of Breath, # 1 each, 0 Refills, Maintenance, 06/12/19 8:06:00 EST, Aerosol, [facility], 1 puffs Inhalation 4 times [...] Maintenance, 208:38:00 EST, Route to Pharmacy Electronically, [facility], 174, cm, 03/19/19 14:40:00 EST, Height, [...] 08/28/19 7:00:00 EDT, 07/29/19 14:05:00 EDT, Tablet, [facility], 174, cm, 05/26/19 14:06:00 EST, Height, 57, kg, 03/19/19 14:07:00 EST, Dry Weight Start Date: 07/29/19 Stop Date: 08/28/19 Status: Ordered metoprolol 50 mg oral tablet, extended release 50 mg, 1, tablet, By Mouth, Daily, do not crush or chew, # 30 tablet, Refills 5, Tot. Refills 5, Maintenance, 07/30/19 9:47:00 EDT, Route to Pharmacy Electronically, [facility], 174, cm, 05/26/19 14:06:00 EST, Height, [...] 04/20/19 8:38:00 EST, Route to Pharmacy Electronically, [facility],174, cm, 03/19/19 14:40:00 EST, Height, 57, kg, 12/... Start Date: 04/20/19 Status: Ordered Spiriva HandiHaler 18 mcg inhalation capsule 1 capsule = 18 mcg, Inhalation, Daily, use two inhalations of one capsule for each dose, # 30 capsule, 6 Refills, Maintenance, 07/10/19 14:54:00 EDT, [facility], 174, cm, 05/26/19 14:06:00 EST, Height, 57, kg, 03/19/19 14:07:00 EST, Dry Weight Start Date: 07/10/19 Stop Date: 02/05/20 Status: Ordered traZODone 50 mg oral tablet 100 mg, 2, tablet, By Mouth, Daily at bedtime, # 60 tablet, Refills 2, Tot. Refills 2, Maintenance,04/30/19 10:39:00 EST, Route to Pharmacy Electronically, [facility], 174, cm, 03/19/19 14:40:00 EST, Height, [...] 5 Refills, Maintenance, 07/10/19 14:54:00 EDT, Tablet, [facility], 174, cm, 05/26/19 14:06:00 EST, Height, [...]
--- OUTSIDE RECORDS SUMMARY | 2022-09-19 20:57 | XMS_ITS | Continuity of Care Document ---
Author Name Unknown Organization [facility] Address [address] [place] [address]- Care Team Providers Care Rail Bonder Name Role Phone Aixa BERNABE, Mike Bennett Primary Care Physician Encounter [facility] Date(s): 11/14/21 - 11/16/[address] [address]- Discharge Disposition: A-Transfer VNA/Home Health Attending Physician: Angelica Hollingsworth MD Admitting Physician: Skye Miranda MD Referring Physician: Serafin Crawford MD Allergies, Adverse Reactions, Alerts Substance Reaction [...] 5 Refills, Maintenance, 10/28/21 14:18:00 EDT, Solution, [facility]/pharmacy #[id number], 165, cm, 10/28/21 4:51:00 EDT, Height, 60.5, kg, 10/26/21 13:16:00 EDT, Dry Weight Start Date: 10/28/21 Status: Ordered amLODIPine 5 mg oral tablet 5 mg, 1, tablet, By Mouth, Daily, # 90 tablet, Refills 1, Tot. Refills 1, Soft Stop, 10/19/21 9:10:00 EDT, Route to Pharmacy Electronically, [facility]/pharmacy #[id number], 180, cm, 09/26/21 10:49:00 EDT, Height, 77, kg, 04/20/21 15:47:00 EST, Dry Weight Start Date: 10/19/21 Status: Ordered Aspirin Low Dose 81 mg oral delayed release tablet 1 tablet, By Mouth, Daily, # 30 tablet, 11 Refills, 10/19/21 9:10:00 EDT, [facility]/pharmacy #1230, 180, cm, 09/26/21 10:49:00 EDT, Height, 77, kg, 04/20/21 15:47:00 EST, Dry Weight Start Date: 10/19/21 Status: Ordered Dulcolax Stool Softener 100 mg oral capsule 1 capsule = 100 mg, By Mouth, 2 times a day, # 60 capsule, 11 Refills, Maintenance, 07/21/22 14:09:00 EDT, Capsule, [facility]/pharmacy #[id number], Partial fill upon patient request if the prescription is for a schedule II opioid drug., 180, cm, 09/26/21 10:49:00... Start Date: 07/21/22 Stop Date: 07/16/23 Status: Ordered fluticasone 50 mcg/inh nasal spray See Instructions, USE 1 SPRAY IN EACH NOSTRIL TWICE A DAY, # 16 Gm, 5 Refills, 10/19/21 9:10:00 EDT, [facility]/pharmacy #1230, 30, USE 1 SPRAY IN EACH NOSTRIL TWICE A DAY, 180, cm, 09/26/21 10:49:00 EDT, Height, 77, kg, 04/20/21 15:47:00 EST, Dry Weight Start Date: 10/19/21 Status: Ordered guaiFENesin 100 mg/5 mL oral liquid 5 mL = 100 mg, By Mouth, Every 4 hours, PRN for cough, # 300 mL, 0 Refills, Maintenance, 10/12/21 17:43:00 EDT, Liquid, [facility]/pharmacy #1230, Partial fill upon patient request if the prescription is for a schedule II opioid drug., 180, cm, 09/26/21 10:4... Start Date: 10/12/21 Status: Ordered guaiFENesin 400 mg oral tablet 1 tablet = 400 mg, By Mouth, 4 times a day, # 120 tablet, 5 Refills, Maintenance, 10/28/21 14:19:00EDT, Tablet, [facility]/pharmacy #1230, 165, cm, 10/28/21 4:51:00 EDT, Height, 60.5, kg, 10/26/21 13:16:00EDT, Dry Weight Start Date: 10/28/21 Status: Ordered losartan 100 mg oral tablet 1 tablet, By Mouth, Daily, # 30 tablet, 5 Refills, Maintenance, 10/19/21 9:10:00 EDT, [facility]/pharmacy #1230, 180, cm, 09/26/21 10:49:00 EDT, Height, 77, kg, 04/20/21 15:47:00 EST, Dry Weight Start Date: 10/19/21 Status: Ordered magnesium oxide 400 mg oral tablet 1 tablet, By Mouth, Daily, # 30 tablet, 6 Refills, Maintenance, 10/19/21 9:10:00 EDT, [facility]/pharmacy #1230, 180, cm, 09/26/21 10:49:00 EDT, Height, 77, kg, 04/20/21 15:47:00 EST, Dry Weight Start Date: 10/19/21 Stop Date: 10/19/21 Status: Ordered metoprolol 50 mg oral tablet, extended release 50 mg, XL Tablet, By Mouth, 11/16/21 9:00:00 EDT Start Date: 11/16/21 Stop Date: 11/16/21 Status: Completed Metoprolol Succinate ER 50 mg oral tablet, extended release 1 tablet, By Mouth, Daily, INSTR:DO NOT CRUSH OR CHEW, # 30 tablet, 5 Refills, 10/19/21 9:10:00 EDT, [facility]/pharmacy #1230, 180, cm, 09/26/21 10:49:00 EDT, Height, 77, kg, 04/20/21 15:47:00 EST, Dry Weight Start Date: 10/19/21 Status: Ordered MiraLax oral powder for reconstitution = 17 Gm, By Mouth, 2 times a day, dissolve in water before taking, # 527 Gm, 11 Refills, Maintenance, 10/19/21 9:10:00 EDT, REC Powder, [facility]/pharmacy #1230, Partial fill upon patient request if the prescription is for a schedule II opioid drug., 17 Gm... Start Date: 10/19/21 Status: Ordered montelukast 10 mg oral tablet 1, tablet, By Mouth, Daily at bedtime, # 30 tablet, Refills 5, Tot. Refills 5, 10/19/21 9:10:00 EDT, Route to Pharmacy Electronically, [facility]/pharmacy #1230, 180, cm, 09/26/21 [...] 1 Refills, Maintenance, 10/19/21 9:10:00 EDT, Tablet, [facility]/pharmacy #1230, 180, cm, 09/26/21 10:49:00 EDT, Height, 77, kg, 04/20/21 15:47:00 EST, Dry Weight Start Date: 10/19/21 Status: Ordered ProAir HFA 90 mcg/inh inhalation aerosol with adapter 2, puffs, Inhalation, Every 6 hours, PRN, # 8.5 Gm, Refills 6, Tot. Refills 6, 10/19/21 9:10:00 EDT, Route to Pharmacy Electronically, [id number], [facility]/pharmacy #1230, 180, cm, 09/26/21 10:49:00 EDT, Height, 77, kg, 04/20/21 1... Start Date: 10/19/21 Status: Ordered riboflavin 400 mg oral capsule 1 capsule = 400 mg, By Mouth, Daily, # 30 capsule, 5 Refills, Maintenance, 10/19/21 9:10:00 EDT, [facility]/pharmacy #1230, Partial fill upon patient request if the prescription is for a schedule II opioid drug., 180, cm, 09/26/21 10:49:00 EDT, Height, 77, k... Start Date: 10/19/21 Status: Ordered SEROquel 25 mg oral tablet 25 mg, 1, tablet, By Mouth, Daily at bedtime, # 30 tablet, Refills 5, Tot. Refills 5, Maintenance, 10/28/21 14:23:00 EDT, Route to Pharmacy Electronically, [facility]/pharmacy #1230, 165, cm, 10/28/21 4:51:00 EDT, Height, 60.5, kg, 10/26/21 13:16:00 EDT, Dry... Start Date: 10/28/21 Status: Ordered Spiriva Respimat 1.25 mcg/inh inhalation aerosol 2 puffs, Inhalation, Daily, # 4 Gm, 5 Refills, 10/19/21 9:10:00 EDT, [facility]/pharmacy #1230, 180, cm, 09/26/21 10:49:00 EDT, Height, 77, kg, 04/20/21 15:47:00 EST, Dry Weight Start Date: 10/19/21 Status: Ordered Symbicort 160mcg/4.5mcg Inhaler 2, puffs, Inhalation, 2 times a day, # 10.2 Gm, Refills 10, Tot. Refills 10, 10/19/21 9:10:00 EDT, Route to Pharmacy Electronically, [id number], [facility]/pharmacy #1230, 180, cm,09/26/21 10:49:00 EDT, Height, 77, kg, 04/20/21 15:... Start Date: 10/19/21 Status: Ordered tamsulosin 0.4 mg oral capsule 1, capsule, By Mouth, Daily, # 30 capsule, Refills 4, Tot. Refills 4, Maintenance, 10/19/21 9:10:00EDT, Route to Pharmacy Electronically, [facility]/pharmacy #1230, 180, cm, 09/26/21 10:49:00 EDT, Height, 77, kg, 04/20/21 15:47:00 EST, Dry Weight Start Date: 10/19/21 Status: Ordered venlafaxine 37.5 mg oral capsule, extended release 37.5 mg, 1, capsule, By Mouth, Daily, # 30 capsule, Refills 1, Tot. Refills 1, Maintenance, 10/19/21 9:10:00 EDT, Route to Pharmacy Electronically, [facility]/pharmacy #1230, Partial fill upon [...] Exam Date Time Procedure Performing Provider Status 11/14/21 4:48 PM Chest 2 Views Frontal and Lat Aundrea Farley; Kody (Verified) Notes: (Chest 2 Views Frontal and Lat) Reason For Exam: stroke;Other: RESULT: Chest 2 Views Frontal and Lat Chest 2 Views Frontal and Lat INDICATION: stroke; Clinical Question(s): CHF / CHF COMPARISON: 10/25/2021 FINDINGS: LINES AND TUBES: None. LUNGS AND PLEURA: Hyperlucent lung apices with crowding of the markings at the bases, coarse lung markings, and hyperinflated lungs, compatible with COPD. No consolidation. Normal pulmonary vascularity. No pleural effusion. No pneumothorax. HEART, MEDIASTINUM AND GRETEL: Heart is normal in size. Normal mediastinal and hilar contour. BONES AND SOFT TISSUES: No acute abnormality. IMPRESSION: COPD without evidence of superimposed acute abnormality. WSN: [id number] Ordering Physician: Serafin Crawford Dictated By: Ney Alberto MD Dictated Date/Time: 11/14/21 4:57 pm Reviewed By: Ney Alberto MD Signed By: Ney Alberto MD Signed Date/Time: 11/14/21 4:57 pm Transcribed By: JAX Transcribed Date/Time: 11/14/21 4:56 pm Vital Signs Most recent to oldest [Reference Range]: 1 2 3 Height 170 cm (11/16/21 11:27 AM) 170 cm (11/16/21 8:01 AM) 170 cm (11/15/21 12:48 PM) Weight 60.3 kg (11/14/21 6:07 PM) 64 kg (11/14/21 3:57 PM) Oxygen Saturation [94-100 %] 97 % (11/16/21 11:27 AM) 95 % (11/16/21 8:01 AM) 97 % (11/16/21 4:00 AM) Pulse Rate [55-90 bpm] 76 bpm (11/16/21 11:27 AM) 75 bpm (11/16/21 8:44 AM) 71 bpm (11/16/21 8:01 AM) Body Mass Index [18.5-24.99] 20.87 (11/14/21 6:07 PM) Blood Pressure [90-138/55-84 mm Hg] 143/85mm Hg *H* (11/16/21 11:27 AM) 142/89mm Hg *H* (11/16/21 8:44 AM) 142/89mm Hg *H* (11/16/21 8:01 AM) Respiratory Rate [16-30 br/min] 20 br/min (11/16/21 11:27 AM) 20 br/min (11/16/21 8:01 AM) 18 br/min (11/16/21 4:00 AM) Temperature [96.8-100.4 DegF] 97.5 DegF (11/16/21 11:27 AM) 97.3 DegF (11/16/21 8:01 AM) 98.2 DegF (11/16/21 4:00 AM) Mode of Delivery (Oxygen) Room air (11/16/21 11:27 AM) Room air (11/16/21 8:01 AM) Room air (11/16/21 4:00 AM) Blood pressure sites Arm, left (11/16/21 11:27 AM) Arm, right (11/16/21 8:01 AM) Arm, left (11/16/21 4:00 AM) Temperature Route Oral (11/16/21 11:27 AM) Oral (11/16/21 8:01 AM) Oral (11/16/21 4:00 AM) Dry Weight 60.3 kg (11/14/21 6:07 PM) 64 kg (11/14/21 3:57 PM) Dry Weight Obtained Via 153 (11/14/21 3:57 PM) Social History Social History Type Response Smoking Status Former smoker, quit more than 30 days ago entered on: 09/26/21 Sex
--- OUTSIDE RECORDS SUMMARY | 2022-09-19 20:57 | XMS_ITS | Continuity of Care Document ---
Author Name Unknown Organization [facility] Address [address] [place] [address]- Care Team Providers Care Clinical Psychologist Private Practice Name Role Phone Mike Kruse MD Primary Care Physician Encounter [facility] Date(s): 09/07/21 - 10/07/21 [facility] [address] [place] [address]- Allergies, Adverse Reactions, Alerts Substance Reaction Severity [...] 11 Refills, Maintenance, 07/15/21 15:49:00 EDT, Solution, [facility], Partial fill upon patient request if the prescription is for a schedule II opioid drug., 180, cm, 04... Start Date: 07/15/21 Status: Ordered amLODIPine 5 mg oral tablet 5 mg, 1, tablet, By Mouth, Daily, # 90 tablet, Refills 1, Tot. Refills 1, Soft Stop, 04/12/21 8:59:00 EST, Route to Pharmacy Electronically, [facility], 174, cm, 03/22/21 13:58:00 EST, Height Start Date: 04/12/21 Status: Ordered Aspirin Low Dose 81 mg oral delayed release tablet 1 tablet, By Mouth, Daily, # 30 tablet, 11 Refills, [facility], 180, cm, 05/03/21 9:32:00EST, Height, 77, kg, 04/20/21 15:47:00 EST, Dry Weight Start Date: 05/06/21 Status: Ordered Claritin 10 mg oral tablet 10 mg, 1, tablet, By Mouth, Daily, REPLACES ZYRTEC, # 30 tablet, Refills 6, Tot. Refills 6, Maintenance, 08/23/21 10:10:00 EDT, Route to Pharmacy Electronically, [facility], Partial fill upon patient request if the prescription is for a sche... Start Date: 08/23/21 Status: Ordered Dulcolax Stool Softener 100 mg oral capsule 1 capsule = 100 mg, By Mouth, 2 times a day, # 60 capsule, 11 Refills, Maintenance, 07/26/21 14:09:00 EDT, Capsule, [facility], Partial fill upon patient request if the prescription is for a schedule II opioid drug., 180, cm, 07/15/21 15:35:... Start Date: 07/26/21 Stop Date: 07/21/22 Status: Ordered fluticasone 50 mcg/inh nasal spray See Instructions, USE 1 SPRAY IN EACH NOSTRIL TWICE A DAY, # 16 Gm, 5 Refills, [facility], 30, USE 1 SPRAY IN EACH NOSTRIL TWICE A DAY, 180, cm, 05/03/21 9:32:00 EST, Height, 77, kg, 04/20/21 15:47:00 EST, Dry Weight Start Date: 05/10/21 Status: Ordered losartan 100 mg oral tablet 1 tablet, By Mouth, Daily, # 30 tablet, 5 Refills, Maintenance, 07/05/21 11:52:00 EDT, [facility], 180, cm, 06/27/21 12:02:00 EDT, Height, 77, kg, 04/20/21 15:47:00 EST, Dry Weight Start Date: 07/05/21 Status: Ordered magnesium oxide 400 mg oral tablet 1 tablet, By Mouth, Daily, # 30 tablet, 6 Refills, [facility], 180, cm, 09/26/21 10:49:00EDT, Height, 77, kg, 04/20/21 15:47:00 EST, Dry Weight Start Date: 09/27/21 Status: Ordered meclizine 25 mg oral tablet 1 tablet = 25 mg, By Mouth, 3 times a day, PRN for dizziness, # 30 tablet, 0 Refills, Acute 10/10/21 0:00:00 EDT, 09/26/21 11:21:00 EDT, Tablet, [facility], Partial fill upon patient request if the prescription is for a schedule II opioid . Start Date: 09/26/21 Stop Date: 10/10/21 Status: Ordered Metoprolol Succinate ER 50 mg oral tablet, extended release 1 tablet, By Mouth, Daily, INSTR:DO NOT CRUSH OR CHEW, # 30 tablet, 5 Refills, [facility], 180, cm, 07/15/21 15:35:00 EDT, Height, 77, kg, 04/20/21 15:47:00 EST, Dry Weight Start Date: 07/29/21 Status: Ordered MiraLax oral powder for reconstitution = 17 Gm, By Mouth, 2 times a day, dissolve in water before taking, # 527 Gm, 11 Refills, Maintenance, 07/26/21 14:09:00 EDT, REC Powder, [facility], Partial fill upon patient request if theprescription is for a schedule II opioid drug., 17... Start Date: 07/26/21 Status: Ordered montelukast 10 mg oral tablet 1, tablet, By Mouth, Daily at bedtime, # 30 tablet, Refills 5, Route to Pharmacy Electronically, [facility], 174, cm, 03/22/21 13:58:00 EST, Height [...] Refills, Maintenance, 07/15/21 15:48:00 EDT, CR Tablet, [facility], Partial fill upon patient request if the prescription is for a schedule II opioid drug., 180, cm, 07/15/21 15:35:00 EDT, H... Start Date: 07/15/21 Stop Date: 07/10/22 Status: Ordered pravastatin 40 mg oral tablet 1 tablet = 40 mg, By Mouth, Daily, # 90 tablet, 1 Refills, Maintenance, 05/10/21 10:26:00 EST, Tablet, [facility], 180, cm, 05/03/21 9:32:00 EST, Height, 77, kg, 04/20/21 15:47:00 EST, Dry Weight Start Date: 05/10/21 Status: Ordered ProAir HFA 90 mcg/inh inhalation aerosol with adapter 2, puffs, Inhalation, Every 6 hours, PRN, # 8.5 Gm, Refills 6, Route to Pharmacy Electronically, NCPDP_[id number], [facility], 174, cm, 04/14/21 14:32:00 EST, Height Start Date: 04/18/21 Status: Ordered riboflavin 400 mg oral capsule 1 capsule = 400 mg, By Mouth, Daily, # 30 capsule, 5 Refills, Maintenance, 08/23/21 10:09:00 EDT, [facility], Partial fill upon patient request if the prescription is for a schedule II opioid drug., 180, cm, 08/23/21 9:21:00 EDT, Height, 77,... Start Date: 08/23/21 Status: Ordered Spiriva Respimat 1.25 mcg/inh inhalation aerosol 2 puffs, Inhalation, Daily, # 4 Gm, 5 Refills, 10/03/21 11:24:00 EDT, [facility], 180, cm, 09/26/21 10:49:00 EDT, Height, 77, kg, 04/20/21 15:47:00 EST, Dry Weight Start Date: 10/03/21 Status: Ordered Symbicort 160mcg/4.5mcg Inhaler 2, puffs, Inhalation, 2 times a day, # 10.2 Gm, Refills 10, Route to Pharmacy Electronically, NCPDP_[id number], [facility], 180, cm, 05/03/21 9:32:00 EST, Height, 77, kg, 04/20/21 15:47:00 EST, Dry Weight Start Date: 05/06/21 Status: Ordered tamsulosin 0.4 mg oral capsule 1, capsule, By Mouth, Daily, # 30 capsule, Refills 4, Tot. Refills 4, Maintenance, 08/25/21 14:22:00 EDT, Route to Pharmacy Electronically, [facility], 180, cm, 08/23/21 9:21:00 EDT, Height, 77, kg, 04/20/21 15:47:00 EST, Dry Weight Start Date: 08/25/21 Status: Ordered traZODone 50 mg oral tablet 100 mg, 2, tablet, By Mouth, Daily at bedtime, # 60 tablet, Refills 5, Tot. Refills 5, Maintenance,08/05/21 10:43:00 EDT, Route to Pharmacy Electronically, [facility], 180, cm, 08/02/21 15:00:00 EDT, Height, 77, kg, 04/20/21 15:47:00 EST, D... Start Date: 08/05/21 Status: Ordered venlafaxine 37.5 mg oral capsule, extended release 37.5 mg, 1, capsule, By Mouth, Daily, # 30 capsule, Refills 0, Tot. Refills 0, Maintenance, 06/27/21 13:03:00 EDT, Route to Pharmacy Electronically, [facility], Partial fill upon patient request if [...]
--- OUTSIDE RECORDS SUMMARY | 2022-09-19 20:57 | XMS_ITS | Continuity of Care Document ---
Author Name Unknown Organization [facility] Address [address] [place] [address]- Care Team Providers Care Metallurgical Specialist Name Role Phone Mike Tristan MD Primary Care Physician [phone] Encounter [facility] Date(s): 07/13/20 - 08/12/20 [facility] [address] [place] [address]- Allergies, Adverse Reactions, Alerts Substance Reaction Severity [...] 05/05/20 13:45:00 EST, Route to Pharmacy Electronically, [facility], 174, cm, 03/01/20 11:26:00 EST, Height, 57, kg, 03/19/19 14:07:00 EST, Dry Weight Start Date: 05/05/20 Status: Ordered aspirin 81 mg oral tablet 1 tablet = 81 mg, By Mouth, Daily, PER DR TRISTAN, # 30 tablet, 5 Refills, Maintenance, 10/13/19 13:42:00 EDT, Tablet, [facility], 174, cm, 10/01/19 13:58:00 EDT, Height, [...] Gm, 11 Refills, Maintenance, 05/07/20 10:33:00 EST, [facility], 30, 1 puffs Inhalation 4 times [...] 14:07:00 E... Start Date: 07/12/20 Status: Ordered Flomax 0.4 mg oral capsule 0.4 mg, 1, capsule, By Mouth, Daily, # 30 capsule, Refills 5, Tot. Refills 5, Maintenance, 04/27/2113:59:00 EST, Route to Pharmacy Electronically, [facility], 174, cm, 03/01/20 11:26:00 EST, Height, [...] tablet, 11 Refills, Maintenance, 07/12/20 14:44:00 EDT, [facility], 174, cm, 07/12/20 14:32:00 EDT, Height, 57, kg, 03/19/19 14:07:00 EST, Dry Weight Start Date: 07/12/20 Status: Ordered metoprolol 50 mg oral tablet, extended release 50 mg, 1, tablet, By Mouth, Daily, do not crush or chew, # 30 tablet, Refills 11, Tot. Refills 11, Maintenance, 07/12/20 14:44:00 EDT, Route to Pharmacy Electronically, [facility], 174, cm,07/12/20 14:32:00 EDT, Height, 57, kg, 03/19/19 14:... Start Date: 07/12/20 Status: Ordered Nasacort Allergy 24HR 55 mcg/inh nasal spray 2 sprays, Nares, Both, Daily, # 3 each, 0 Refills, Maintenance, 01/08/20 14:50:00 EDT, [facility], 2 sprays Nares, Both Daily, 174, cm, 01/08/20 14:29:00 EDT, Height, 57, kg, 03/19/19 14:07:00 EST, Dry Weight Start Date: 01/08/20 Status: Ordered nicotine 4 mg oral transmucosal lozenge 1 lozenge = 4 mg, By Mouth, Every hour, # 189 lozenge, 11 Refills, Maintenance, 07/12/20 14:49:00 EDT, [facility], 1 lozenge By Mouth Every hour, [...] 1 Refills, Maintenance, 03/23/20 10:59:00 EST, Tablet, [facility], 174, cm, 03/01/20 11:26:00 EST, Height, 57, kg, 03/19/19 14:07:00 EST, DryWeight Start Date: 03/23/20 Status: Ordered Remeron 15 mg oral tablet 1 tablet = 15 mg, By Mouth, Daily at bedtime, REPLACES ZOLOFT, # 30 tablet, 1 Refills, Maintenance,06/22/20 15:13:00 EST, Tablet, [facility], Partial fill upon patient request if the prescription is for a schedule II opioid drug., 174, cm,... Start Date: 06/22/20 Status: Ordered Singulair 10 mg oral tablet 10 mg, 1, tablet, By Mouth, Daily at bedtime, PER ARPIT DUNN, # 30 tablet, Refills 5, Tot. Refills 5, Maintenance, 05/05/20 13:42:00 EST, Route to Pharmacy Electronically, [facility], 174, cm, 03/01/20 11:26:00 EST, Height, [...] 13:51:00 EST, Aerosol, Route to Pharmacy Electronically, [id number]_[id number], [facility], 174,cm, 05/07/20 10:13:00 EST, Height, 57, kg, 03/19/19... Start Date: 05/25/20 Status: Ordered traZODone 50 mg oral tablet 100 mg, 2, tablet, By Mouth, Daily at bedtime, # 60 tablet, Refills 11, Tot. Refills 11, Maintenance, 07/12/20 14:43:00 EDT, Route to Pharmacy Electronically, [facility], 174, cm, 07/12/20 14:32:00 EDT, Height, [...] 5 Refills, Maintenance, 03/08/20 8:02:00 EST, Tablet, [facility], 174, cm, 03/01/20 11:26:00 EST, Height, [...]
--- OUTSIDE RECORDS SUMMARY | 2022-09-19 20:57 | XMS_ITS | Continuity of Care Document ---
Author Name Unknown Organization [facility] ter Address [address] [place] [address]- Care Team Providers Care Associate Financial Advisor Name Role Phone Aixa BERNABE, Mike Bennett Primary Care Physician [phone] Encounter [facility] Date(s): 12/13/21 - 12/15/[address] [address]- Encounter Diagnosis COPD exacerbation(Final) - 12/13/21 Discharge Disposition: A-D/C Home Attending Physician: Myla Bernard MD Admitting Physician: Aga Mercado MD Referring Physician: Not on Staff, Referring [...] 5 Refills, Maintenance, 10/28/21 14:18:00 EDT, Solution, [facility]/pharmacy #1230, 165, cm, 10/28/21 4:51:00 EDT, Height, 60.5, kg, 10/26/21 13:16:00 EDT, Dry Weight Start Date: 10/28/21 Status: Ordered amLODIPine 5 mg oral tablet 5 mg, 1, tablet, By Mouth, Daily, # 90 tablet, Refills 1, Tot. Refills 1, Soft Stop, 10/19/21 9:10:00 EDT, Route to Pharmacy Electronically, [facility]/pharmacy #1230, 180, cm, 09/26/21 10:49:00 EDT, Height, 77, kg, 04/20/21 15:47:00 EST, Dry Weight Start Date: 10/19/21 Status: Ordered amLODIPine 5 mg oral tablet 5 mg, Tablet, By Mouth, 12/15/21 9:00:00 EDT Start Date: 12/15/21 Stop Date: 12/15/21 Status: Completed Aspirin Low Dose 81 mg [...] Acute 12/16/21 12:37:00 EDT, 12/14/2211:37:00 EDT, Tablet, [facility], Partial fill upon patient [...] 16 Gm, 5 Refills, 10/19/21 9:10:00 EDT, [facility]/pharmacy #1230, 30, USE 1 [...] tablet, 5 Refills, Maintenance, 10/19/21 9:10:00 EDT, [facility]/pharmacy #1230, 180, cm, 09/26/21 10:49:00 EDT, Height, 77, kg, 04/20/21 15:47:00 EST, Dry Weight Start Date: 10/19/21 Status: Ordered losartan 50 mg oral tablet 100 mg, Tablet, By Mouth, 12/15/21 9:00:00 EDT Start Date: 12/15/21 Stop Date: 12/15/21 Status: Completed magnesium oxide 400 mg oral tablet 1 tablet, By Mouth, Daily, # 30 tablet, 6 Refills, Maintenance, 10/19/21 9:10:00 EDT, [facility]/pharmacy #1230, 180, cm, 09/26/21 10:49:00 EDT, Height, 77, kg, 04/20/21 15:47:00 EST, Dry Weight Start Date: 10/19/21 Stop Date: 10/19/21 Status: Ordered metoprolol 50 mg oral tablet, extended release 50 mg, XL Tablet, By Mouth, 12/15/21 9:00:00 EDT Start Date: 12/15/21 Stop Date: 12/15/21 Status: Completed Metoprolol Succinate ER 50 mg oral tablet, extended release 1 tablet, By Mouth, Daily, INSTR:DO NOT CRUSH OR CHEW, # 30 tablet, 5 Refills, 10/19/21 9:10:00 EDT, [facility] 10/19/21 9:10:00 EDT, Route to Pharmacy Electronically, [facility]/pharmacy #1230, 180, cm, [...] 16:53:00 EDT, [facility] Partial fill upon patient request if the prescription is for a schedule II opioid drug... Start Date: 11/18/21 Status: Ordered pravastatin 40 mg oral tablet 1 tablet = 40 mg, By Mouth, Daily, # 90 tablet, 1 Refills, Maintenance, 10/19/21 9:10:00 EDT, Tablet, [facility]/pharmacy #1230, 180, cm, [...] 0 Refills, Maintenance, 12/13/21 12:37:00 EDT, Tablet, [facility]... Start Date: 12/13/21 Status: Ordered ProAir [...] 12/13/21 12:40:00 EDT, Route to Pharmacy Electronically, [id number], [facility],162, cm, 12/13/21 4:46:00 EDT, Height, 60.3, kg, 08... Start Date: 12/13/21 Status: Ordered riboflavin 400 mg oral capsule 1 capsule = 400 mg, By Mouth, Daily, # 30 capsule, 5 Refills, Maintenance, 10/19/21 9:10:00 EDT, [facility]/pharmacy #1230, Partial fill [...] 4 Gm, 5 Refills, 10/19/21 9:10:00 EDT, [facility]/pharmacy #1230, 180, cm, 09/26/21 10:49:00 EDT, Height, 77, kg, 04/20/21 15:47:00 EST, Dry Weight Start Date: 10/19/21 Status: Ordered Symbicort 160mcg/4.5mcg Inhaler 2, puffs, Inhalation, 2 times a day, # 10.2 Gm, Refills 10, Tot. Refills 10, 10/19/21 9:10:00 EDT, Route to Pharmacy Electronically, [id number], [facility]/pharmacy #1230, 180, cm,09/26/21 10:49:00 EDT, Height, 77, kg, 04/20/21 15:... Start Date: 10/19/21 Status: Ordered tamsulosin 0.4 mg oral capsule 1, capsule, By Mouth, Daily, # 30 capsule, Refills 4, Tot. Refills 4, Maintenance, 10/19/21 9:10:00EDT, Route to Pharmacy Electronically, [facility]/pharmacy #1230, 180, cm, 09/26/21 10:49:00 EDT, Height, 77, kg, 04/20/21 15:47:00 EST, Dry Weight Start Date: 10/19/21 Status: Ordered venlafaxine 37.5 mg oral capsule, extended release 37.5 mg, 1, capsule, By Mouth, Daily, # 30 capsule, Refills 1, Tot. Refills 1, Maintenance, 10/19/21 9:10:00 EDT, Route to Pharmacy Electronically, [facility]/pharmacy #1230, Partial fill [...] Exam Date Time Procedure Performing Provider Status 12/13/21 7:18 PM Chest 2 Views Frontal and Lat Marilyn Gamble; Auth (Verified) Notes: (Chest 2 Views Frontal and Lat) Reason For Exam: Chest Pain;Other: RESULT: Chest 2 Views Frontal and Lat Chest 2 Views Frontal and Lat INDICATION: Hx of Present Illness: pt d c today for a COPD exacerbation, states his breathing has progressively worsened over the day with exertion, used inhalers without change to breathing.; Reason: Other:; Chest Pain; Clinical Question(s): Other: COMPARISON: 12/09/2021 FINDINGS: LINES AND TUBES: None. LUNGS AND PLEURA: Stable hyperinflation is noted. There is centrilobular emphysema, upper lobe predominant with bullous changes, similar to prior examination. The lungs are clear and the pulmonary vascularity is normal. No effusion or pneumothorax. HEART, MEDIASTINUM AND GRETEL: Normal. BONES AND SOFT TISSUES: No acute abnormality. IMPRESSION: Stable COPD. No acute abnormality. WSN: [id number] Ordering Physician: Kyara Hodge Dictated By: Shayy Baird MD Dictated Date/Time: 12/13/21 7:38 pm Reviewed By: Shayy Baird MD Signed By: Shayy Baird MD Signed Date/Time: 12/13/21 7:38 pm Transcribed By: JAX Transcribed Date/Time: 12/13/21 7:37 pm Vital Signs Most recent to oldest [Reference Range]: 1 2 3 Height 163 cm (12/15/21 7:14 AM) 163 cm (12/15/21 3:39 AM) 163 cm (12/15/21 12:01 AM) Weight 58.6 kg (12/14/21 3:40 AM) 63.3 kg (12/13/21 11:03 PM) 63.3 kg (12/13/21 7:31 PM) Oxygen Saturation [94-100 %] 97 % (12/15/21 7:14 AM) 100 % (12/15/21 3:39 AM) 95 % (12/15/21 12:01 AM) Pulse Rate [55-90 bpm] 63 bpm (12/15/21 9:15 AM) 63 bpm (12/15/21 7:14 AM) 87 bpm (12/15/21 3:39 AM) Body Mass Index [18.5-24.99] 22.06 (12/14/21 3:40 AM) 23.82 (12/13/21 11:03 PM) 23.82 (12/13/21 7:31 PM) Blood Pressure [90-138/55-84 mm Hg] 139/78mm Hg *H* (12/15/21 9:15 AM) 139/78mm Hg *H* (12/15/21 9:15 AM) 139/78mm Hg *H* (12/15/21 9:15 AM) Respiratory Rate [16-30 br/min] 18 br/min (12/15/21 7:14 AM) 22 br/min (12/15/21 3:39 AM) 21 br/min (12/15/21 12:01 AM) Temperature [96.8-100.4 DegF] 97.9 DegF (12/15/21 7:14 AM) 97.9 DegF (12/15/21 3:39 AM) 97.9 DegF (12/15/21 12:01 AM) Mode of Delivery (Oxygen) Room air (12/15/21 7:14 AM) Room air (12/15/21 3:39 AM) Room air (12/15/21 12:01 AM) Blood pressure sites Arm, right (12/15/21 7:14 AM) Arm, left (12/15/21 3:39 AM) Arm, left (12/15/21 12:01 AM) Temperature Route Oral (12/15/21 7:14 AM) Oral (12/15/21 3:39 AM) Oral (12/15/21 12:01 AM) Dry Weight 58.6 kg (12/14/21 3:40 AM) 63.3 kg (12/13/21 11:03 PM) 63.3 kg (12/13/21 7:31 PM) Weight Obtained Via Bed scale (12/14/21 3:40 AM) Patient/family stated (12/13/21 4:55 PM) Dry Weight Obtained Via Bed scale (12/14/21 3:40 AM) Patient/family stated (12/13/21 4:55 PM) Social History Social History Type Response Smoking Status Former smoker, quit more than 30 days ago entered on: 09/26/21 Sex Note * [employer] , CIS S: TRANSCRIShayy Kim MD: VERIFY Event Display: Result: Authored Date: [id number] Chest 2 Views Frontal and Lat INDICATION: Hx of Present Illness: pt d c today for a COPD exacerbation, states his breathing has progressively worsened over the day with exertion, used inhalers without change to breathing.; Reason: Other:; Chest Pain; Clinical Question(s): Other: COMPARISON: 12/09/2021 FINDINGS: LINES AND TUBES: None. LUNGS AND PLEURA: Stable hyperinflation is noted. There is centrilobular emphysema, upper lobe predominant with bullous changes, similar to prior examination. The lungs are clear and the pulmonary vascularity is normal. No effusion or pneumothorax. HEART, MEDIASTINUM AND GRETEL: Normal. BONES AND SOFT TISSUES: No acute abnormality. IMPRESSION: Stable COPD. No acute abnormality. WSN: [id number] Ordering Physician: Kyara Hodge Dictated By: Shayy Baird MD Dictated Date/Time: 12/13/21 7:38 pm Reviewed By: Shayy Baird MD Signed By: Shayy Baird MD Signed Date/Time: 12/13/21 7:38 pm Transcribed By: JAX Transcribed Date/Time: 12/13/21 7:37 pm Care Team Personnel Name: Mike Kruse MD Address: [address] [place] [id number]-
--- OUTSIDE RECORDS SUMMARY | 2022-09-19 20:57 | XMS_ITS | Continuity of Care Document ---
Author Name Unknown Organization [facility] Trevor lt Address [address] [place] [address]- Care Team Providers Care Mattress Filling Machine Tender Name Role Phone Mike Tristan MD Primary Care Physician Encounter [facility] Date(s): 07/10/19 - 07/17/19 [facility] [address] [place] [address]- [facility] Encounter Diagnosis Vertigo(Discharge Diagnosis) - 07/10/19 Sinusitis, acute(Discharge Diagnosis) - 07/10/19 Attending Physician: Rachell Shannon NP Allergies, Adverse [...] 02/10/19 13:40:35 EDT, Route to Pharmacy Electronically, NCPDP_[id number], [facility] - [address] [place] [address] Start Date: 02/10/19 Stop Date: 06/10/19 Status: Ordered aspirin 81 mg oral tablet 1 tablet = 81 mg, By Mouth, Daily, PER DR TRISTAN, # 30 tablet, 5 Refills, Maintenance, 04/30/19 10:28:00 EST, Tablet, [facility], 174, cm, 03/19/19 14:40:00 EST, Height, 57, kg, 03/19/19 14:07:00 EST, Dry Weight Start Date: 04/30/19 Status: Ordered Augmentin 875 mg-125 mg oral tablet 1 tablet, By Mouth, Every 12 hours, for 10 days, # 20 tablet, 0 Refills, Acute 07/20/19 14:55:00 EDT, 07/10/19 14:55:00 EDT, Tablet, [facility], 174, cm, 05/26/19 14:06:00 EST, Height, 57, kg, 03/19/19 14:07:00 EST, Dry Weight Start Date: 07/10/19 Stop Date: 07/20/19 Status: Ordered Combivent Respimat 20 mcg-100 mcg/inh inhalation aerosol 1 puffs, Inhalation, 4 times a day, PRN Wheezing/Shortness of Breath, # 1 each, 0 Refills, Maintenance, 06/12/19 8:06:00 EST, Aerosol, [facility], 1 puffs Inhalation 4 times a [...] Maintenance, 208:38:00 EST, Route to Pharmacy Electronically, [facility], 174, cm, 03/19/19 14:40:00 EST, Height, [...] EDT, Tablet Start Date: 12/03/17 Status: Ordered ibuprofen 600 mg oral tablet 600 mg, 1, tablet, By Mouth, 4 times a day, PRN, for 7 days, with food or milk, # 28 tablet, Refills 0, Tot. Refills 0, Acute 07/22/19 15:38:00 EDT, for pain, 07/15/19 15:38:00 EDT, Route to PharmacyElectronically, [facility], 174, cm, 05/17... Start Date: 07/15/19 Stop Date: 07/22/19 Status: Ordered meclizine 25 mg oral tablet 1 tablet = 25 mg, By Mouth, 3 times a day, PRN for dizziness, # 30 tablet, 0 Refills, Acute 08/14/19 7:00:00 EDT, 07/10/19 14:55:00 EDT, Tablet, [facility], 174, cm, 05/26/19 14:06:00 EST, Height, 57, kg, 03/19/19 14:07:00 EST, Dry Weight Start Date: 07/10/19 Stop Date: 08/14/19 Status: Ordered metoprolol 50 mg oral tablet, extended release 50 mg, 1, tablet, By Mouth, Daily, do not crush or chew, # 30 tablet, Refills 2, Tot. Refills 2, Maintenance, 07/10/19 14:54:00 EDT, Route to Pharmacy Electronically, [facility], 174, cm, 05/26/19 14:06:00 EST, Height, [...] 04/20/19 8:38:00 EST, Route to Pharmacy Electronically, [facility],174, cm, 03/19/19 14:40:00 EST, Height, 57, kg, 12/... Start Date: 04/20/19 Status: Ordered Spiriva HandiHaler 18 mcg inhalation capsule 1 capsule = 18 mcg, Inhalation, Daily, use two inhalations of one capsule for each dose, # 30 capsule, 6 Refills, Maintenance, 07/10/19 14:54:00 EDT, [facility], 174, cm, 05/26/19 14:06:00 EST, Height, 57, kg, 03/19/19 14:07:00 EST, Dry Weight Start Date: 07/10/19 Stop Date: 02/05/20 Status: Ordered traZODone 50 mg oral tablet 100 mg, 2, tablet, By Mouth, Daily at bedtime, # 60 tablet, Refills 2, Tot. Refills 2, Maintenance,04/30/19 10:39:00 EST, Route to Pharmacy Electronically, [facility], 174, cm, 03/19/19 14:40:00 EST, Height, [...] 5 Refills, Maintenance, 07/10/19 14:54:00 EDT, Tablet, [facility], 174, cm, 05/26/19 14:06:00 EST, Height, [...] Active Vertigo(Confirmed) Active Weight decreased(Confirmed) Active 1colo 2017 2Dr. Green 3IMPRESSION: 1. [...] Dates Health Status Cl inical Service Informant Vertigo Discharge Diagnosis 07/10/19 Sinusitis, acute Discharge Diagnosis 07/10/19 Social History Social History Type Response Smoking Status 5-9 cigarettes (betw een 1/4 to 1/2 pack)/day in last 30 days entered on: 05/26/19 Sex
--- OUTSIDE RECORDS SUMMARY | 2022-09-19 20:57 | XMS_ITS | Continuity of Care Document ---
Author Name Unknown Organization [facility] Address [address] [place] [address]- Care Team Providers Care Carbon Sequestration Plant Operator Name Role Phone Mike Tristan MD Primary Care Physician Encounter [facility] Date(s): 03/19/19 - 03/26/19 [facility] [address] [place] [address]- [facility] Attending Physician: Moni Pham MD Referring Physician: Mike Tristan MD Allergies, [...] 12:22:16 EDT, Aerosol, Route to Pharmacy Electronically, NCP_ID-[id number], [facility] - [address] [place] [address] Start Date: 10/24/18 Status: Ordered amLODIPine 5 mg oral tablet 5 mg, 1, tablet, By Mouth, Daily, # 90 tablet, Refills 3, Tot. Refills 3, Soft Stop, 02/10/19 13:40:35 EDT, Route to Pharmacy Electronically, NCPDP_ID-[id number], [facility] - [address] [place] [address] Start Date: 02/10/19 Stop Date: 06/10/19 Status: [...] EDT, Compound Start Date: 12/31/17 Status: Ordered doxycycline hyclate 100 mg oral capsule 1 capsule = 100 mg, By Mouth, Every 12 hours, for 10 days, # 20 capsule, 0 Refills, Acute 03/29/19 15:30:49 EST, 03/19/19 15:30:49 EST, Capsule, 174, cm, 03/19/19 14:40:19 EST, Height, 57, kg, 03/19/19 14:07:49 EST, Dry Weight Start Date: 03/19/19 Stop Date: 03/29/19 Status: Ordered ENSURE CHOCOLATE ENSURE CHOCOLATE, See Instructions, # 1 box, Refills 0, Tot. Refills 0, Maintenance, drink 2 ensuredaily dx code: r63.0 R63.4 , 08/31/17 9:38:21 EDT, Compound Start Date: 08/31/17 Status: Ordered Flomax 0.4 mg oral capsule 0.4 mg, 1, capsule, By Mouth, Daily, # 30 capsule, Refills 11, Tot. Refills 11, Maintenance, 04/18/18 8:57:12 EST, Route to Pharmacy Electronically, NCPDP_ID- [id number], [facility] - [email or web address] Start Date: 04/18/18 Status: Ordered hydrocortisone 1% [...] three times a day for 7 days, [facility] - [address] Start Date: 01/24/19 Status: Ordered metoprolol 50 mg oral tablet, extended release 50 mg, 1, tablet, By Mouth, Daily, do not crush or chew, # 30 tablet, Refills 11, Tot. Refills 11, Maintenance, 04/18/18 8:56:34 EST, Route to Pharmacy Electronically, NCPDP_ID-[id number], [facility] - [email or web address] Start Date: 04/18/18 Status: Ordered Nicoderm C-Q [...] 04/18/18 8:55:27 EST, Route to Pharmacy Electronically, NCPDP_ID- [id number], [facility] - [address] Start Date: 04/18/18 Status: Ordered pravastatin 40 [...] 04/18/18 8:56:29 EST, Route to Pharmacy Electronically, NCPDP_ID-[id number], [facility] - [address] Start Date: 04/18/18 Status: Ordered Spiriva HandiHaler [...] 04/18/18 8:57:13 EST, Route to Pharmacy Electronically, NCPDP_ID-[id number], [facility] - [address] Start Date: 04/18/18 Status: Ordered Tylenol Extra [...] [Reference Range]: 1 2 Height 174 cm (03/19/19 2:40 PM) 174 cm (03/19/19 2:07 PM) Weight 57.0 kg (03/19/19 2:07 PM) Oxygen Saturation [94-100 %] 97 % (03/19/19 2:40 PM) 98 % (03/19/19 2:07 PM) Pulse Rate [55-90 bpm] 76 bpm (03/19/19 2:40 PM) 79 bpm (03/19/19 2:07 PM) Body Mass Index [18.5-24.99] 18.83 (03/19/19 2:07 PM) Blood Pressure [90-138/55-84 mm Hg] 139/ 84mm Hg *H* (03/19/19 2:07 PM) Respiratory Rate [16-30 br/min] 18 br/mi n (03/19/19 2:07 PM) Temperature [96.8-100.4 DegF] 98.1 DegF (03/19/19 2:07 PM) Mode of Delivery (Oxygen) Room air (03/19/19 2:07 PM) Blood pressure sites Arm, right (03/19/19 2:07 PM) Temperature Route Oral (03/19/19 2:07 PM) Dry Weight 57.0 kg (03/19/19 2:07 PM) Dry Weight Obtained Via Standing scale (03/19/19 2:07 PM) Social History Social History Type Response Smoking Status Current every day yeimi murphy; Type: Cigarettes entered on: 10/26/15 Sex
--- OUTSIDE RECORDS SUMMARY | 2022-09-19 20:57 | XMS_ITS | Continuity of Care Document ---
Author Name Unknown Organization [facility] Trevor lt Address [address] [place] [address]- Care Team Providers Care General Contractor Name Role Phone Aixa BERNABE, Mike Bennett Primary Care Physician Encounter [facility] Date(s): 10/01/19 - 10/08/19 [facility] Adult [address] [place] [address]- [facility] Attending Physician: David BERNABE, Sven Butts Allergies, Adverse Reactions, Alerts Substance Reaction Severity [...] 10/28/19 13:40:35 EDT, Route to Pharmacy Electronically, NCPDP_[id number], [facility] - [address] [place] [address] Start Date: 02/10/19 Stop Date: 06/10/19 Status: Ordered aspirin 81 mg oral tablet 1 tablet = 81 mg, By Mouth, Daily, PER DR TRISTAN, # 30 tablet, 5 Refills, Maintenance, 04/30/19 10:28:00 EST, Tablet, [facility], 174, cm, 03/19/19 14:40:00 EST, Height, 57, kg, 03/19/19 14:07:00 EST, Dry Weight Start Date: 04/30/19 Status: Ordered Combivent Respimat 20 mcg-100 mcg/inh inhalation aerosol 1 puffs, Inhalation, 4 times a day, PRN Wheezing/Shortness of Breath, # 1 each, 0 Refills, Maintenance, 06/12/19 8:06:00 EST, Aerosol, [facility], 1 puffs Inhalation 4 times [...] Maintenance, 208:38:00 EST, Route to Pharmacy Electronically, [facility], 174, cm, 03/19/19 14:40:00 EST, Height, [...] 10/29/19 14:37:00 EDT, 09/29/19 14:37:00 EDT, Tablet, [facility], 174, cm, 05/26/19 14:06:00 EST, Height, 57, kg, 03/19/19 14:07:00 EST,... Start Date: 09/29/19 Stop Date: 10/29/19 Status: Ordered metoprolol 50 mg oral tablet, extended release 50 mg, 1, tablet, By Mouth, Daily, do not crush or chew, # 30 tablet, Refills 5, Tot. Refills 5, Maintenance, 07/30/19 9:47:00 EDT, Route to Pharmacy Electronically, [facility], 174, cm, 05/26/19 14:06:00 EST, Height, [...] 04/20/19 8:38:00 EST, Route to Pharmacy Electronically, [facility],174, cm, 03/19/19 14:40:00 EST, Height, 57, kg, 12/... Start Date: 04/20/19 Status: Ordered Spiriva HandiHaler 18 mcg inhalation capsule 1 capsule = 18 mcg, Inhalation, Daily, use two inhalations of one capsule for each dose, # 30 capsule, 6 Refills, Maintenance, 07/10/19 14:54:00 EDT, [facility], 174, cm, 05/26/19 14:06:00 EST, Height, 57, kg, 03/19/19 14:07:00 EST, Dry Weight Start Date: 07/10/19 Stop Date: 02/05/20 Status: Ordered traZODone 50 mg oral tablet 100 mg, 2, tablet, By Mouth, Daily at bedtime, # 60 tablet, Refills 2, Tot. Refills 2, Maintenance,04/30/19 10:39:00 EST, Route to Pharmacy Electronically, [facility], 174, cm, 03/19/19 14:40:00 EST, Height, [...] 5 Refills, Maintenance, 07/10/19 14:54:00 EDT, Tablet, [facility], 174, cm, 05/26/19 14:06:00 EST, Height, [...] oldest [Reference Range]: 1 Height 174 cm (10/01/19 1:58 PM) Social History Social History Type Response Smoking Status 5-9 cigarettes (betw een 1/4 to 1/2 pack)/day in last 30 days entered on: 05/26/19 Sex
--- OUTSIDE RECORDS SUMMARY | 2022-09-19 20:57 | XMS_ITS | Continuity of Care Document ---
Author Name Unknown Organization [facility] Trevor lt Address [address] [place] [address]- Care Team Providers Care Breaker Up Machine Operator Name Role Phone Mike Tristan MD Primary Care Physician [facility] Date[facility]s): 01/26/21 - 02/25/21 [facility] [address] [place] [address]- Allergies, Adverse Reactions, Alerts Substance Reaction Severity [...] 01/10/21 16:35:00 EDT, Route to Pharmacy Electronically, [facility], 174, cm, 12/30/20 14:45:00 EDT, Height, 57, kg, 03/19/19 14:07:00 EST, Dry Weight Start Date: 01/10/21 Status: Ordered Aspirin Low Dose 81 mg oral delayed release tablet 1 tablet, By Mouth, Daily, # 30 tablet, 2 Refills, [facility], 174, cm, 01/14/21 15:08:00EDT, Height, 57, kg, 03/19/19 14:07:00 EST, Dry Weight Start Date: 01/25/21 Status: Ordered Combivent Respimat 20 mcg-100 mcg/inh inhalation aerosol 1 puffs, Inhalation, 4 times a day, PRN NEEDED FOR WHEEZING OR SHORTNESS OF BREATH, # 4 Gm, 11 Refills, Maintenance, 05/07/20 10:33:00 EST, [facility], 30, 1 puffs Inhalation 4 times [...] 16 Gm, 2 Refills, 08/24/20 15:55:00 EDT, [facility], 30, INSTILL 1 SPRAY INTO EACH [...] 1 Refills, Maintenance, 11/30/20 11:11:00 EDT, Capsule, [facility], Partial fill upon patient request if the prescription is for a scheduleII opioid drug., 174, cm, 11/30/20 10:34:00 EDT, He... Start Date: 11/30/20 Status: Ordered losartan 100 mg oral tablet 1 tablet, By Mouth, Daily, # 30 tablet, 11 Refills, Maintenance, 07/12/20 14:44:00 EDT, [facility], 174, cm, 07/12/20 14:32:00 EDT, Height, 57, kg, 03/19/19 14:07:00 EST, Dry Weight Start Date: 07/12/20 Status: Ordered metoprolol 50 mg oral tablet, extended release 50 mg, 1, tablet, By Mouth, Daily, do not crush or chew, # 30 tablet, Refills 11, Tot. Refills 11, Maintenance, 07/12/20 14:44:00 EDT, Route to Pharmacy Electronically, [facility], 174, cm,07/12/20 14:32:00 EDT, Height, 57, kg, 03/19/19 14:... Start Date: 07/12/20 Status: Ordered montelukast 10 mg oral tablet 1, tablet, By Mouth, Daily at bedtime, # 30 tablet, Refills 4, Tot. Refills 0, Maintenance, 10/20/20 11:07:00 EDT, Route to Pharmacy Electronically, [facility], 174, cm, 09/14/20 14:37:00 EDT, Height, 57, kg, 03/19/19 14:07:00 EST, Dry Weight Start Date: 10/20/20 Status: Ordered Nasacort Allergy 24HR 55 mcg/inh nasal spray 2 sprays, Nares, Both, Daily, # 3 each, 0 Refills, Maintenance, 01/08/20 14:50:00 EDT, [facility], 2 sprays Nares, Both Daily, 174, cm, 01/08/20 14:29:00 EDT, Height, 57, kg, 03/19/19 14:07:00 EST, Dry Weight Start Date: 01/08/20 Status: Ordered nicotine 4 mg oral transmucosal lozenge 1 lozenge = 4 mg, By Mouth, Every hour, # 189 lozenge, 11 Refills, Maintenance, 07/12/20 14:49:00 EDT, [facility], 1 lozenge By Mouth Every hour, 174, cm, 07/12/20 14:32:00 EDT, Height, 57,kg, 03/19/19 14:07:00 EST, Dry Weight Start Date: 07/12/20 Status: Ordered omeprazole 20 mg oral enteric coated capsule 1 capsule, By Mouth, Daily, # 14 capsule, 0 Refills, Maintenance, 07/05/20 8:06:00 EDT, [facility], 174, cm, 06/22/20 14:37:00 EST, Height, 57, kg, 03/19/19 14:07:00 EST, Dry Weight Start Date: 07/05/20 Stop Date: 07/19/20 Status: Ordered pravastatin 40 mg oral tablet 1 tablet = 40 mg, By Mouth, Daily, # 90 tablet, 1 Refills, Maintenance, 08/24/20 15:56:00 EDT, Tablet, [facility], 174, cm, 08/17/20 13:45:00 EDT, Height, 57, kg, 03/19/19 14:07:00 EST, DryWeight Start Date: 08/24/20 Status: Ordered Remeron 15 mg oral tablet 1 tablet = 15 mg, By Mouth, Daily at bedtime, REPLACES ZOLOFT, # 30 tablet, 1 Refills, Maintenance,06/22/20 15:13:00 EST, Tablet, [facility], Partial fill upon patient request if the prescription is for a schedule II opioid drug., 174, cm,... Start Date: 06/22/20 Status: Ordered Spiriva Respimat 1.25 mcg/inh inhalation aerosol 2 puffs, Inhalation, Daily, # 4 Gm, 11 Refills, Maintenance, 05/25/20 13:51:00 EST, Aerosol, [facility], Partial fill upon patient request if the prescription is for a schedule II opioid drug., 174, cm, 05/07/20 10:13:00 EST, Height, 57, kg,... Start Date: 05/25/20 Status: Ordered Symbicort 160mcg/4.5mcg Inhaler 2, puffs, Inhalation, 2 times a day, # 1 each, Refills 11, Tot. Refills 11, Maintenance, 05/25/20 13:51:00 EST, Aerosol, Route to Pharmacy Electronically, NCPDP_[id number], [facility], 174,cm, 05/07/20 10:13:00 EST, Height, 57, kg, 03/19/19... Start Date: 05/25/20 Status: Ordered tamsulosin 0.4 mg oral capsule 1, capsule, By Mouth, Daily, # 30 capsule, Refills 4, Tot. Refills 0, Maintenance, 10/20/20 11:06:00 EDT, Route to Pharmacy Electronically, [facility], 174, cm, 09/14/20 14:37:00 EDT, Height, 57, kg, 03/19/19 14:07:00 EST, Dry Weight Start Date: 10/20/20 Status: Ordered traZODone 50 mg oral tablet 100 mg, 2, tablet, By Mouth, Daily at bedtime, # 60 tablet, Refills 11, Tot. Refills 11, Maintenance, 07/12/20 14:43:00 EDT, Route to Pharmacy Electronically, [facility], 174, cm, 07/12/20 14:32:00 EDT, Height, 57, kg, 03/19/19 14:07:00 EST,... Start Date: 07/12/20 Status: Ordered Tylenol Extra Strength 500 mg oral tablet See Instructions, PRN for pain, 1 or 2 tablet By Mouth 3 times a day PER DR TRISTAN, # 100 tablet, 11 Refills, Maintenance, 06/08/20 10:22:00 EST, Tablet, [facility], 174, cm, 06/08/20 9:48:00 EST, Height, [...]
--- OUTSIDE RECORDS SUMMARY | 2022-09-19 20:57 | XMS_ITS | Continuity of Care Document ---
Author Name Unknown Organization [facility] Trevor lt Address [address] [place] [address]- Care Team Providers Care Surgical Garment Inspector Name Role Phone Aixa BERNABE, Mike Bennett Primary Care Physician Encounter [facility] Date(s): 09/06/21 - 09/13/21 [facility] Adult [address] [place] [address]- Encounter Diagnosis SOB (shortness of breath)(Discharge Diagnosis) - 09/06/21 Lightheadedness(Discharge Diagnosis) - 09/06/21 Attending Physician: Nisha Hernandez NP Referring Physician: Mike Kruse MD Allergies, [...] 11 Refills, Maintenance, 07/15/21 15:49:00 EDT, Solution, [facility], Partial fill upon patient request if the prescription is for a schedule II opioid drug., 180, cm, 04... Start Date: 07/15/21 Status: Ordered amLODIPine 5 mg oral tablet 5 mg, 1, tablet, By Mouth, Daily, # 90 tablet, Refills 1, Tot. Refills 1, Soft Stop, 04/12/21 8:59:00 EST, Route to Pharmacy Electronically, [facility], 174, cm, 03/22/21 13:58:00 EST, Height Start Date: 04/12/21 Status: Ordered Aspirin Low Dose 81 mg oral delayed release tablet 1 tablet, By Mouth, Daily, # 30 tablet, 11 Refills, [facility], 180, cm, 05/03/21 9:32:00EST, Height, 77, kg, 04/20/21 15:47:00 EST, Dry Weight Start Date: 05/06/21 Status: Ordered Claritin 10 mg oral tablet 10 mg, 1, tablet, By Mouth, Daily, REPLACES ZYRTEC, # 30 tablet, Refills 6, Tot. Refills 6, Maintenance, 08/23/21 10:10:00 EDT, Route to Pharmacy Electronically, [facility], Partial fill upon patient request if the prescription is for a sche... Start Date: 08/23/21 Status: Ordered Dulcolax Stool Softener 100 mg oral capsule 1 capsule = 100 mg, By Mouth, 2 times a day, # 60 capsule, 11 Refills, Maintenance, 07/26/21 14:09:00 EDT, Capsule, [facility], Partial fill upon patient request if the prescription is for a schedule II opioid drug., 180, cm, 07/15/21 15:35:... Start Date: 07/26/21 Stop Date: 07/21/22 Status: Ordered fluticasone 50 mcg/inh nasal spray See Instructions, USE 1 SPRAY IN EACH NOSTRIL TWICE A DAY, # 16 Gm, 5 Refills, [facility], 30, USE 1 SPRAY IN EACH NOSTRIL TWICE A DAY, 180, cm, 05/03/21 9:32:00 EST, Height, 77, kg, 04/20/21 15:47:00 EST, Dry Weight Start Date: 05/10/21 Status: Ordered losartan 100 mg oral tablet 1 tablet, By Mouth, Daily, # 30 tablet, 5 Refills, Maintenance, 07/05/21 11:52:00 EDT, [facility], 180, cm, 06/27/21 12:02:00 EDT, Height, 77, kg, 04/20/21 15:47:00 EST, Dry Weight Start Date: 07/05/21 Status: Ordered magnesium oxide 400 mg oral tablet 1 tablet = 400 mg, By Mouth, Daily, # 30 tablet, 0 Refills, Acute 09/23/21 0:00:00 EDT, 08/23/21 10:09:00 EDT, [facility], Partial fill upon patient request if the prescription is for a schedule II opioid drug., 180, cm, 08/23/21 9:21:00 EDT... Start Date: 08/23/21 Stop Date: 09/23/21 Status: Ordered Metoprolol Succinate ER 50 mg oral tablet, extended release 1 tablet, By Mouth, Daily, INSTR:DO NOT CRUSH OR CHEW, # 30 tablet, 5 Refills, [facility], 180, cm, 07/15/21 15:35:00 EDT, Height, 77, kg, 04/20/21 15:47:00 EST, Dry Weight Start Date: 07/29/21 Status: Ordered MiraLax oral powder for reconstitution = 17 Gm, By Mouth, 2 times a day, dissolve in water before taking, # 527 Gm, 11 Refills, Maintenance, 07/26/21 14:09:00 EDT, REC Powder, [facility], Partial fill upon patient request if theprescription is for a schedule II opioid drug., 17... Start Date: 07/26/21 Status: Ordered montelukast 10 mg oral tablet 1, tablet, By Mouth, Daily at bedtime, # 30 tablet, Refills 5, Route to Pharmacy Electronically, [facility], 174, cm, 03/22/21 13:58:00 EST, Height [...] 09/22/21 10:22:00 EDT, 08/11/21 10:22:00 EDT, Patch, [facility], Partial fill upon patient request if the prescriptionis for a schedule II opioid drug., 180, cm, 2... Start Date: 08/11/21 Stop Date: 09/22/21 Status: Ordered omeprazole 20 mg oral delayed release tablet 1 tablet = 20 mg, By Mouth, Daily, # 30 tablet, 11 Refills, Maintenance, 07/15/21 15:48:00 EDT, CR Tablet, [facility], Partial fill upon patient request if the prescription is for a schedule II opioid drug., 180, cm, 07/15/21 15:35:00 EDT, H... Start Date: 07/15/21 Stop Date: 07/10/22 Status: Ordered pravastatin 40 mg oral tablet 1 tablet = 40 mg, By Mouth, Daily, # 90 tablet, 1 Refills, Maintenance, 05/10/21 10:26:00 EST, Tablet, [facility], 180, cm, 05/03/21 9:32:00 EST, Height, 77, kg, 04/20/21 15:47:00 EST, Dry Weight Start Date: 05/10/21 Status: Ordered ProAir HFA 90 mcg/inh inhalation aerosol with adapter 2, puffs, Inhalation, Every 6 hours, PRN, # 8.5 Gm, Refills 6, Route to Pharmacy Electronically, NCPDP_[id number], [facility], 174, cm, 04/14/21 14:32:00 EST, Height Start Date: 04/18/21 Status: Ordered riboflavin 400 mg oral capsule 1 capsule = 400 mg, By Mouth, Daily, # 30 capsule, 5 Refills, Maintenance, 08/23/21 10:09:00 EDT, [facility], Partial fill upon patient request if the prescription is for a schedule II opioid drug., 180, cm, 08/23/21 9:21:00 EDT, Height, 77,... Start Date: 08/23/21 Status: Ordered Spiriva Respimat 1.25 mcg/inh inhalation aerosol 2 puffs, Inhalation, Daily, # 4 Gm, 5 Refills, [facility], 180, cm, 05/03/21 9:32:00 EST,Height, 77, kg, 04/20/21 15:47:00 EST, Dry Weight Start Date: 05/05/21 Status: Ordered Symbicort 160mcg/4.5mcg Inhaler 2, puffs, Inhalation, 2 times a day, # 10.2 Gm, Refills 10, Route to Pharmacy Electronically, NCPDP_[id number], [facility], 180, cm, 05/03/21 9:32:00 EST, Height, 77, kg, 04/20/21 15:47:00 EST, Dry Weight Start Date: 05/06/21 Status: Ordered tamsulosin 0.4 mg oral capsule 1, capsule, By Mouth, Daily, # 30 capsule, Refills 4, Tot. Refills 4, Maintenance, 08/25/21 14:22:00 EDT, Route to Pharmacy Electronically, [facility], 180, cm, 08/23/21 9:21:00 EDT, Height, 77, kg, 04/20/21 15:47:00 EST, Dry Weight Start Date: 08/25/21 Status: Ordered traZODone 50 mg oral tablet 100 mg, 2, tablet, By Mouth, Daily at bedtime, # 60 tablet, Refills 5, Tot. Refills 5, Maintenance,08/05/21 10:43:00 EDT, Route to Pharmacy Electronically, [facility], 180, cm, 08/02/21 15:00:00 EDT, Height, 77, kg, 04/20/21 15:47:00 Stacie KAN. Start Date: 08/05/21 Status: Ordered venlafaxine 37.5 mg oral capsule, extended release 37.5 mg, 1, capsule, By Mouth, Daily, # 30 capsule, Refills 0, Tot. Refills 0, Maintenance, 06/27/21 13:03:00 EDT, Route to Pharmacy Electronically, [facility], Partial fill upon patient request if [...] Effective Dates Health Status Clinical Service Informant SOB (shortness of breath) Discharge Diagnosis 09/06/21 Lightheadedness Discharge Diagnosis 09/06/21 Vital Signs Most recent to oldest [Reference Range]: 1 Height 180 cm (09/06/21 9:50 AM) Weight 68.2 kg (09/06/21 9:50 AM) Body Mass Index [18.5-24.99] 21.05 (09/06/21 9:50 AM) Weight Obtained Via Standing scale (09/06/21 9:50 AM) Social History Social History Type Response Smoking Status 5-9 cigarettes (betw een 1/4 to 1/2 pack)/day in last 30 days entered on: 05/26/19 Sex
--- OUTSIDE RECORDS SUMMARY | 2022-09-19 20:57 | XMS_ITS | Continuity of Care Document ---
Author Name Unknown Organization [facility] ter Address [address] [place] [id number]- Care Team Providers Care Printer Technician Name Role Phone Mike Tristan MD Primary Care Physician [facility]counter [facility] Date(s): 07/30/19 - 11/22/[address] [address] Attending Physician: Mirtha HOOD, Rachell Bennett Admitting Physician: Mirtha HOOD, Rachell Bennett Referring [...] 12:49:00 EDT, Aerosol, Route to Pharmacy Electronically, NCPDP_[id number], [facility], 174, cm, 10/01/19 13:58:00 EDT, Height, 57, kg, 03/19... Start Date: 11/17/19 Status: Ordered amLODIPine 5 mg oral tablet 5 mg, 1, tablet, By Mouth, Daily, # 90 tablet, Refills 3, Tot. Refills 3, Soft Stop, 02/10/19 13:40:35 EDT, Route to Pharmacy Electronically, NCPDP_[id number], [facility] Start Date: 02/10/19 Stop Date: 06/10/19 Status: Ordered aspirin 81 mg oral tablet 1 tablet = 81 mg, By Mouth, Daily, PER DR TRISTAN, # 30 tablet, 5 Refills, Maintenance, 10/13/19 13:42:00 EDT, Tablet, [facility], 174, cm, 10/01/19 13:58:00 EDT, Height, 57, kg, 03/19/19 14:07:00 EST, Dry Weight Start Date: 10/13/19 Status: Ordered Combivent Respimat 20 mcg-100 mcg/inh inhalation aerosol 1 puffs, Inhalation, 4 times a day, PRN Wheezing/Shortness of Breath, # 1 each, 0 Refills, Maintenance, 06/12/19 8:06:00 EST, Aerosol, [facility], 1 puffs Inhalation 4 times a [...] Maintenance, 10/12/2012:42:00 EDT, Route to Pharmacy Electronically, [facility], 174, cm, 10/01/19 13:58:00 EDT, Height, [...] 12/28/19 14:37:00 EDT, 10/29/19 14:37:00 EDT, Tablet, [facility], 174, cm, 10/01/19 13:58:00 EDT, Height, 57, kg, 03/19/19 14:07:00 EST,... Start Date: 10/29/19 Stop Date: 12/28/19 Status: Ordered metoprolol 50 mg oral tablet, extended release 50 mg, 1, tablet, By Mouth, Daily, do not crush or chew, # 30 tablet, Refills 2, Tot. Refills 2, Maintenance, 10/14/19 8:46:00 EDT, Route to Pharmacy Electronically, [facility], 174, cm, 10/01/19 13:58:00 EDT, Height, [...] 10/13/19 13:42:00 EDT, Route to Pharmacy Electronically, [facility], 174, cm, 10/01/19 13:58:00 EDT, Height, 57, kg, 12... Start Date: 10/13/19 Status: Ordered Spiriva HandiHaler 18 mcg inhalation capsule 1 capsule = 18 mcg, Inhalation, Daily, use two inhalations of one capsule for each dose, # 30 capsule, 6 Refills, Maintenance, 07/10/19 14:54:00 EDT, [facility], 174, cm, 05/26/19 14:06:00 EST, Height, 57, kg, 03/19/19 14:07:00 EST, Dry Weight Start Date: 07/10/19 Stop Date: 02/05/20 Status: Ordered traZODone 50 mg oral tablet 100 mg, 2, tablet, By Mouth, Daily at bedtime, # 60 tablet, Refills 2, Tot. Refills 2, Maintenance,10/14/19 8:46:00 EDT, Route to Pharmacy Electronically, [facility], 174, cm, 10/01/19 13:58:00 EDT, Height, 57, kg, 03/19/19 14:07:00 EST, Dr... Start Date: 10/14/19 Status: Ordered Tylenol Extra [...] 5 Refills, Maintenance, 07/10/19 14:54:00 EDT, Tablet, [facility], 174, cm, 05/26/19 14:06:00 EST, Height, [...] 04/19 to 1/2 pack)/day in last 30 days entered on: 05/26/19 Sex
--- OUTSIDE RECORDS SUMMARY | 2022-09-19 20:57 | XMS_ITS | Continuity of Care Document ---
Author Name Unknown Organization [facility] ter Address [address] [place] [id number]- Care Team Providers Care Crm Marketing Specialist Name Role Phone Mike Kruse MD Primary Care Physician [facility] Date(s): 02/23/22 - 03/31/[address] [address] Attending Physician: Renny Wyatt MD Admitting Physician: Renny Wyatt MD Referring Physician: Mike Kruse MD Allergies, Adverse Reactions, Alerts Substance Reaction Severity Status lisinopril Atenolol Trisha norvegensis Active cloNIDine Active Immunizations Given and Recorded Vaccine Date Status Refusal Reason [id number] 12y+ bivalent booster vax 1 01/20/22 Given [...] Given tetanus/diphtheria/pertussis, acel(Tdap) 04/01/09 Recorded 1Result Comment: [facility] [id number] 2Location History: [facility] 3Result Comment: [11/22/2016] [facility] 4Result Comment: [03/20/2016] [facility] Medications acetaminophen 325 mg oral tablet 650 mg, 2, tablet, By Mouth, Every 4 hours, PRN, # 30 tablet, Refills 0, Tot. Refills 0, Maintenance, Pain , Mild, 02/21/22 15:17:00 EST, Route to Pharmacy Electronically, [facility], Partial fill upon patient [...] Refills, Maintenance, 02/09/22 12:58:00 EDT, [id number], 163, cm, 02/07/22 18:18:00 EDT, Height, 60, kg, 02/07/22 15:54:00 EDT, Dry Weight Start Date: 02/09/22 Status: Ordered amoxicillin-clavulanate 875 mg-125 mg oral tablet 1 tablet, By Mouth, Every 12 hours, for 7 days, # 14 tablet, 0 Refills, Acute 04/06/22 16:21:00 EST, 03/30/22 16:21:00 EST, Tablet, [facility]/pharmacy #[id number], Partial fill upon patient request if the prescription is for a schedule II opioid drug., 163, cm, 1... Start Date: 03/30/22 Stop Date: 04/06/22 Status: Ordered Aspirin Low Dose 81 mg [...] each, 5 Refills, Maintenance, 12/19/21 15:27:00 EDT, [facility], 30, USE 1 SPRAY IN EACH [...] tablet, 4 Refills, Maintenance, 12/23/21 13:25:00 EDT, [facility], 162, cm, 12/16/21 14:39:00 EDT, Height, 59.5, kg, 12/16/21 0:28:00 EDT, Dry Weight Start Date: 12/23/21 Status: Ordered magnesium oxide 400 mg oral tablet 1 tablet, By Mouth, Daily, # 30 tablet, 6 Refills, Maintenance, 10/19/21 9:10:00 EDT[id number], cm, 09/26/21 10:49:00 EDT, Height, 77, kg, 04/20/21 15:47:00 EST, Dry Weight Start Date: 10/19/21 Stop Date: 10/19/21 Status: Ordered Metoprolol Succinate ER 50 mg oral tablet, extended release 1 tablet, By Mouth, Daily, INSTR:DO NOT CRUSH OR CHEW, # 30 tablet, 5 Refills, 10/19/21 9:10:00 EDT, [id number] 180, cm, 09/26/21 [...] 03/15/22 15:34:00 EST, Route to Pharmacy Electronically, [facility]/pharmacy #[id number], Partial fill upon [...] 02/21/22 15:17:00 EST, Route to Pharmacy Electronically, [facility], Partial fill upon patient request if [...] tablet, 5 Refills, Maintenance, 12/19/21 15:29:00 EDT, [facility], 162, cm, 12/16/21 14:39:00 EDT, Height, 59.5, kg, 12/16/21 0:28:00 EDT, Dry Weight Start Date: 12/19/21 Status: Ordered ProAir HFA 90 mcg/inh inhalation aerosol with adapter 2, puffs, Inhalation, Every 6 hours, PRN, # 8.5 Gm, Refills 1, Tot. Refills 1, 12/13/21 12:40:00 EDT, Route to Pharmacy Electronically, [id number], [facility],162, cm, 12/13/21 4:46:00 EDT, Height, 60.3, kg, 08... Start Date: 12/13/21 Status: Ordered ProAir HFA 90 mcg/inh inhalation aerosol with adapter 2, puffs, Inhalation, Every 6 hours, PRN, # 8.5 Gm, Refills 0, Tot. Refills 0, Maintenance, 03/30/22 16:20:00 EST, Aerosol, Route to Pharmacy Electronically, [id number], [facility]/pharmacy #[id number], 163, cm, 03/30/22 [...] 10/28/21 14:23:00 EDT, Route to Pharmacy Electronically, [facility]/pharmacy #[id number], 165, cm, [...] 10/19/21 9:10:00 EDT, Route to Pharmacy Electronically, [id number], [facility]/pharmacy #1230, 180, cm,09/26/21 10:49:00 EDT, Height, 77, kg, 04/20/21 15:... Start Date: 10/19/21 Status: Ordered tamsulosin 0.4 mg oral capsule 1, capsule, By Mouth, Daily, # 30 capsule, Refills 4, Tot. Refills 4, Maintenance, 10/19/21 9:10:00EDT, Route to Pharmacy Electronically, [facility]/pharmacy #[id number], 180, cm, 09/26/21 10:49:00 EDT, Height, 77, kg, 04/20/21 15:47:00 EST, Dry Weight Start Date: 10/19/21 Status: Ordered Tessalon Perles 100 mg oral capsule 1 capsule = 100 mg, By Mouth, 3 times a day, for 7 days, # 21 capsule, 0 Refills, Acute 04/06/22 16:20:00 EST, 03/30/22 16:20:00 EST, Capsule, [facility]/pharmacy #[id number], Partial fill upon patient request ifthe prescription is for a schedule II opioid drug.,... Start Date: 03/30/22 Stop Date: 04/06/22 Status: Ordered venlafaxine 37.5 mg oral capsule, extended release See Instructions, TAKE 1 CAPSULE BY MOUTH EVERY DAY, # 30 capsule, 1 Refills, Maintenance, 03/31/2211:53:00 EST, [id number], 163, cm, 03/30/22 10:35:00 EST, Height, 60, kg, 02/07/22 15:54:00 EDT, Dry Weight Start Date: 03/31/22 Status: Ordered Ventolin HFA 108 mcg/inh inhalation aerosol with adapter 2 puffs, Inhalation, Every 4 hours, PRN for wheezing, # 18 Gm, 0 Refills, Maintenance, 03/21/22 13:25:00 EST, Aerosol, [id number], Partial fill upon patient request [...] Type Site Repair Hernia Inguinal Bilateral Open RyAnoop bella MD 02/20/22 Unknown Groin Left Device Identifier Serial Number Lot or Batch Number Manufacturing Date Expiration Date Distinct Identification Code MRI Safety Implantable Status Assigning Authority Unknown Unknown Unknown Unknown 03/13/26 Unknown Unknown Active Un known Patient Care team information Care Team Personnel Name: Ana West RN Position: [facility] RN Member Role: Primary Care Nurse Name: Odalys Orozco RN Position: S RN Member Role: Primary Care Nurse Name: Mike Kruse MD Position: [facility] Primary Care Physician Member Role: PCP Address: Address: [address] [place] [address] Name: Maryam Valenzuela RN Position: [facility] RN Member Role: Primary Care Nurse Name: Deandre Lara LPN Position: [facility] RN Member Role: Primary Care Nurse Name: Aruna Winkler RN Position: [facility] RN Member Role: Primary Care Nurse Name: Sabrina Hare RN Position: [facility] RN Member Role: Primary Care Nurse Name: Kristyn Olivo RN Position: [facility] RN Member Role: Primary Care Nurse Name: Marguerite Florentino RN Position: [facility] RN Member Role: Primary Care Nurse Care Team Related Persons Name: ENA SOTO Address: [address] [place] [address] Name: ELISA TOMPKINS Address: [place] [address] Name: JOSE RAFAEL LI
--- OUTSIDE RECORDS SUMMARY | 2022-09-19 20:57 | XMS_ITS | Continuity of Care Document ---
Author Name Unknown Organization [facility] Trevor lt Address [address] [place] [address]- Care Team Providers Care Hvac Technician Name Role Phone Mike Tristan MD Primary Care Physician [facility] Date[facility]): 10[facility]/20 - 11/21/20 [facility] Adult [address] [place] [address]- Attending Physician: Julia HOOD, Aisha Hardy Referring [...] 05/05/20 13:45:00 EST, Route to Pharmacy Electronically, [facility], 174, cm, 03/01/20 11:26:00 EST, Height, 57, kg, 03/19/19 14:07:00 EST, Dry Weight Start Date: 05/05/20 Status: Ordered aspirin 81 mg oral tablet 1 tablet = 81 mg, By Mouth, Daily, PER DR TRISTAN, # 30 tablet, 5 Refills, Maintenance, 10/13/19 13:42:00 EDT, Tablet, [facility], 174, cm, 10/01/19 13:58:00 EDT, Height, 57, kg, 03/19/19 14:07:00 EST, Dry Weight Start Date: 10/13/19 Status: Ordered Combivent Respimat 20 mcg-100 mcg/inh inhalation aerosol 1 puffs, Inhalation, 4 times a day, PRN NEEDED FOR WHEEZING OR SHORTNESS OF BREATH, # 4 Gm, 11 Refills, Maintenance, 05/07/20 10:33:00 EST, [facility], 30, 1 puffs Inhalation 4 times a day,PRN: NEEDED FOR WHEEZING OR SHORTNESS OF BREATH... Start Date: 05/07/20 Status: Ordered docusate sodium 100 mg oral capsule 1 capsule = 100 mg, By Mouth, 2 times a day, PRN as needed for constipation, # 100 capsule, 2 Refills, Maintenance, 08/17/20 14:09:00 EDT, Capsule, [facility], Partial [...] 16 Gm, 2 Refills, 08/24/20 15:55:00 EDT, [facility], 30, INSTILL 1 SPRAY INTO EACH [...] 1 Refills, Maintenance, 11/16/20 11:14:00 EDT, Capsule, [facility], Partial fill upon patient request if the prescription is for a scheduleII opioid drug., 174, cm, 10/22/20 15:16:00 EDT, He... Start Date: 11/16/20 Status: Ordered losartan 100 mg oral tablet 1 tablet, By Mouth, Daily, # 30 tablet, 11 Refills, Maintenance, 07/12/20 14:44:00 EDT, [facility], 174, cm, 07/12/20 14:32:00 EDT, Height, 57, kg, 03/19/19 14:07:00 EST, Dry Weight Start Date: 07/12/20 Status: Ordered metoprolol 50 mg oral tablet, extended release 50 mg, 1, tablet, By Mouth, Daily, do not crush or chew, # 30 tablet, Refills 11, Tot. Refills 11, Maintenance, 07/12/20 14:44:00 EDT, Route to Pharmacy Electronically, [facility], 174, cm,07/12/20 14:32:00 EDT, Height, 57, kg, 03/19/19 14:... Start Date: 07/12/20 Status: Ordered montelukast 10 mg oral tablet 1, tablet, By Mouth, Daily at bedtime, # 30 tablet, Refills 4, Tot. Refills 0, Maintenance, 10/20/20 11:07:00 EDT, Route to Pharmacy Electronically, [facility], 174, cm, 09/14/20 14:37:00 EDT, Height, 57, kg, 03/19/19 14:07:00 EST, Dry Weight Start Date: 10/20/20 Status: Ordered Nasacort Allergy 24HR 55 mcg/inh nasal spray 2 sprays, Nares, Both, Daily, # 3 each, 0 Refills, Maintenance, 01/08/20 14:50:00 EDT, [facility], 2 sprays Nares, Both Daily, 174, cm, 01/08/20 14:29:00 EDT, Height, 57, kg, 03/19/19 14:07:00 EST, Dry Weight Start Date: 01/08/20 Status: Ordered nicotine 4 mg oral transmucosal lozenge 1 lozenge = 4 mg, By Mouth, Every hour, # 189 lozenge, 11 Refills, Maintenance, 07/12/20 14:49:00 EDT, [facility], 1 lozenge By Mouth Every hour, [...] 1 Refills, Maintenance, 08/24/20 15:56:00 EDT, Tablet, [facility], 174, cm, 08/17/20 13:45:00 EDT, Height, 57, kg, 03/19/19 14:07:00 EST, DryWeight Start Date: 08/24/20 Status: Ordered Remeron 15 mg oral tablet 1 tablet = 15 mg, By Mouth, Daily at bedtime, REPLACES ZOLOFT, # 30 tablet, 1 Refills, Maintenance,06/22/20 15:13:00 EST, Tablet, [facility], Partial fill upon patient request if the prescription is for a schedule II opioid drug., 174, cm,... Start Date: 06/22/20 Status: Ordered Spiriva Respimat 1.25 mcg/inh inhalation aerosol 2 puffs, Inhalation, Daily, # 4 Gm, 11 Refills, Maintenance, 05/25/20 13:51:00 EST, Aerosol, [facility], Partial fill upon patient request if the prescription is for a schedule II opioid drug., 174, cm, 05/07/20 10:13:00 EST, Height, 57, kg,... Start Date: 05/25/20 Status: Ordered Symbicort 160mcg/4.5mcg Inhaler 2, puffs, Inhalation, 2 times a day, # 1 each, Refills 11, Tot. Refills 11, Maintenance, 05/25/20 13:51:00 EST, Aerosol, Route to Pharmacy Electronically, [id number], [facility], 174,cm, 05/07/20 10:13:00 EST, Height, 57, kg, 03/19/19... Start Date: 05/25/20 Status: Ordered tamsulosin 0.4 mg oral capsule 1, capsule, By Mouth, Daily, # 30 capsule, Refills 4, Tot. Refills 0, Maintenance, 10/20/20 11:06:00 EDT, Route to Pharmacy Electronically, [facility], 174, cm, 09/14/20 14:37:00 EDT, Height, 57, kg, 03/19/19 14:07:00 EST, Dry Weight Start Date: 10/20/20 Status: Ordered traZODone 50 mg oral tablet 100 mg, 2, tablet, By Mouth, Daily at bedtime, # 60 tablet, Refills 11, Tot. Refills 11, Maintenance, 07/12/20 14:43:00 EDT, Route to Pharmacy Electronically, [facility], 174, cm, 07/12/20 14:32:00 EDT, Height, 57, kg, 03/19/19 14:07:00 EST,... Start Date: 07/12/20 Status: Ordered Tylenol Extra Strength 500 mg oral tablet See Instructions, PRN for pain, 1 or 2 tablet By Mouth 3 times a day PER DR TRISTAN, # 100 tablet, 11 Refills, Maintenance, 06/08/20 10:22:00 EST, Tablet, [facility], 174, cm, 06/08/20 9:48:00 EST, Height, 57, kg, 03/19/19 14:07:00 EST, Dry Weight Start Date: 06/08/20 Status: Ordered ZyrTEC 10 mg oral tablet 1 tablet = 10 mg, By Mouth, Daily, # 30 tablet, 5 Refills, Maintenance, 03/08/20 8:02:00 EST, Tablet, [facility], 174, cm, 03/01/20 11:26:00 EST, [...]
--- OUTSIDE RECORDS SUMMARY | 2022-09-19 20:57 | XMS_ITS | Continuity of Care Document ---
Author Name Unknown Organization [facility] Trevor lt Address [address] [place] [address]- Care Team Providers Care Oracle Sql Developer Name Role Phone Mike Tristan MD Primary Care Physician Encounter [facility] Date(s): 05/07/20 - 05/14/20 [facility] Adult [address] [place] [address]- Encounter Diagnosis COPD, moderate(Discharge Diagnosis) - 05/07/20 Emphysema of lung(Discharge Diagnosis) - 05/07/20 Attending Physician: Mike Tristan MD Allergies, Adverse [...] 05/05/20 13:45:00 EST, Route to Pharmacy Electronically, [facility], 174, cm, 03/01/20 11:26:00 EST, Height, 57, kg, 03/19/19 14:07:00 EST, Dry Weight Start Date: 05/05/20 Status: Ordered aspirin 81 mg oral tablet 1 tablet = 81 mg, By Mouth, Daily, PER DR TRISTAN, # 30 tablet, 5 Refills, Maintenance, 10/13/19 13:42:00 EDT, Tablet, [facility], 174, cm, 10/01/19 13:58:00 EDT, Height, 57, kg, 03/19/19 14:07:00 EST, Dry Weight Start Date: 10/13/19 Status: Ordered ASPIRIN LOW 81MG EC ASPIRIN LOW 81MG EC, 1, tablet, By Mouth, Daily, # 30 tablet, 4 Refills, Maintenance, 04/28/20 8:42:00 EST, 174, cm, 03/01/20 11:26:00 EST, Height, 57, kg, 03/19/19 14:07:00 EST, Dry Weight Start Date: 04/28/20 Status: Ordered Chantix Starter Pack 0.5 mg-1 mg oral tablet 1 tablet, By Mouth, 2 times a day, as directed on package labeling, # 53 tablet, 0 Refills, Maintenance, 02/13/20 14:46:00 EDT, Tablet, [facility], 1 tablet By Mouth 2 times a day,Instr:as directed on package labeling, 174, cm, 02/13/20 14:1... Start Date: 02/13/20 Status: Ordered Combivent Respimat 20 mcg-100 mcg/inh inhalation aerosol 1 puffs, Inhalation, 4 times a day, PRN NEEDED FOR WHEEZING OR SHORTNESS OF BREATH, # 4 Gm, 11 Refills, Maintenance, 05/07/20 10:33:00 EST, [facility], 30, 1 puffs Inhalation 4 times [...] Maintenance, 04/27/2113:59:00 EST, Route to Pharmacy Electronically, [facility], 174, cm, 03/01/20 11:26:00 EST, Height, 57, kg, 03/19/19 14:07:00 EST, Dry Weight Start Date: 04/27/20 Status: Ordered fluticasone 50 mcg/inh nasal spray See Instructions, INSTILL 1 SPRAY INTO EACH NOSTRIL TWICE DAILY, # 16 Gm, 2 Refills, Maintenance, [facility], 30, INSTILL 1 SPRAY INTO EACH [...] EDT, Tablet Start Date: 12/03/17 Status: Ordered losartan 100 mg oral tablet 1 tablet, By Mouth, Daily, # 30 tablet, 0 Refills, Maintenance, 05/06/20 8:04:00 EST, [facility], 174, cm, 03/01/20 11:26:00 EST, Height, 57, kg, 03/19/19 14:07:00 EST, Dry Weight Start Date: 05/06/20 Status: Ordered metoprolol 50 mg oral tablet, extended release 50 mg, 1, tablet, By Mouth, Daily, do not crush or chew, # 30 tablet, Refills 2, Tot. Refills 2, Maintenance, 10/14/19 8:46:00 EDT, Route to Pharmacy Electronically, [facility], 174, cm, 10/01/19 13:58:00 EDT, Height, 57, kg, 03/19/19 14:07:... Start Date: 10/14/19 Status: Ordered Nasacort Allergy 24HR 55 mcg/inh nasal spray 2 sprays, Nares, Both, Daily, # 3 each, 0 Refills, Maintenance, 01/08/20 14:50:00 EDT, [facility], 2 sprays Nares, Both Daily, 174, [...] 1 Refills, Maintenance, 03/23/20 10:59:00 EST, Tablet, [facility], 174, cm, 03/01/20 11:26:00 EST, Height, 57, kg, 03/19/19 14:07:00 EST, DryWeight Start Date: 03/23/20 Status: Ordered Singulair 10 mg oral tablet 10 mg, 1, tablet, By Mouth, Daily at bedtime, PER ARPIT DUNN, # 30 tablet, Refills 5, Tot. Refills 5, Maintenance, 05/05/20 13:42:00 EST, Route to Pharmacy Electronically, [facility], 174, cm, 03/01/20 11:26:00 EST, Height, 57, kg, 12... Start Date: 05/05/20 Status: Ordered traZODone 50 mg oral tablet 100 mg, 2, tablet, By Mouth, Daily at bedtime, # 60 tablet, Refills 5, Tot. Refills 5, Maintenance,03/08/20 9:08:00 EST, Route to Pharmacy Electronically, [facility], 174, cm, 03/01/20 11:26:00 EST, Height, 57, kg, 03/19/19 14:07:00 EST, Start Date: 03/08/20 Status: Ordered Trelegy Ellipta 200 mcg-62.5 mcg-25 mcg/inh inhalation powder 1 puffs, Inhalation, Daily, at the same time every day, # 1 each, 11 Refills, Maintenance, 05/07/2109:33:00 EST, Powder, [facility], Partial fill upon patient request if the prescription is for a schedule II opioid drug., 1 puffs Inhalation... Start Date: 05/07/20 Status: Ordered Tylenol Extra Strength 500 mg [...] 5 Refills, Maintenance, 03/08/20 8:02:00 EST, Tablet, [facility], 174, cm, 03/01/20 11:26:00 EST, Height, [...] Dates Health Status Cl inical Service Informant COPD, moderate Discharge Diagnosis 05/07/20 Emphysema of lung Discharge Diagnosis 05/07/20 Vital Signs Most recent to oldest [Reference Range]: 1 Height 174 cm (05/07/20 10:13 AM) Social History Social History Type Response Smoking Status 5-9 cigarettes (betw een 1/4 to 1/2 pack)/day in last 30 days entered on: 05/26/19 Sex
--- OUTSIDE RECORDS SUMMARY | 2022-09-19 20:58 | XMS_ITS | Continuity of Care Document ---
Author Name Unknown Organization [facility] Trevor lt Address [address] [place] [address]- Care Team Providers Care Denture Finisher Name Role Phone Mike Tristan MD Primary Care Physician [phone] [facility] Date[facility]s): 06/12/19 - 06/22/19 [facility] Adult [address] [place] [address]- [facility] Attending Physician: Admtr, Eliza Admitting Physician: Admtr, [...] 02/10/19 13:40:35 EDT, Route to Pharmacy Electronically, [id number], [facility] - [address] [place] [address] Start Date: 02/10/19 Stop Date: 06/10/19 Status: Ordered aspirin 81 mg oral tablet 1 tablet = 81 mg, By Mouth, Daily, PER DR TRISTAN, # 30 tablet, 5 Refills, Maintenance, 04/30/19 10:28:00 EST, Tablet, [facility], 174, cm, 03/19/19 14:40:00 EST, Height, [...] Maintenance, 208:38:00 EST, Route to Pharmacy Electronically, [facility], 174, cm, 03/19/19 14:40:00 EST, Height, [...] 04/30/19 10:39:00 EST, Route to Pharmacy Electronically, [facility], 174, cm, 03/19/19 14:40:00 EST, Height, [...] 04/20/19 8:38:00 EST, Route to Pharmacy Electronically, [facility],174, cm, 03/19/19 14:40:00 EST, Height, 57, [...] Maintenance,04/30/19 10:39:00 EST, Route to Pharmacy Electronically, [facility], 174, cm, 03/19/19 14:40:00 EST, Height, [...] 5 Refills, Maintenance, 04/20/19 8:38:00 EST, Tablet, [facility], 174, cm, 03/19/19 14:40:00 EST, Height, [...]
--- OUTSIDE RECORDS SUMMARY | 2022-09-19 20:58 | XMS_ITS | Continuity of Care Document ---
Author Name Unknown Organization [facility] Trevor lt Address [address] [place] [id number]- Care Team Providers Care Second Rigger Name Role Phone Mike Tristan MD Primary Care Physician [facility] Date[facility]s): 05/14[facility]20 - 06/13/20 [facility] Adult [address] [place] [address]- Allergies, Adverse Reactions, Alerts Substance Reaction Severity [...] 05/05/20 13:45:00 EST, Route to Pharmacy Electronically, [facility], 174, cm, 03/01/20 11:26:00 EST, Height, 57, kg, 03/19/19 14:07:00 EST, Dry Weight Start Date: 05/05/20 Status: Ordered aspirin 81 mg oral tablet 1 tablet = 81 mg, By Mouth, Daily, PER DR TRISTAN, # 30 tablet, 5 Refills, Maintenance, 10/13/19 13:42:00 EDT, Tablet, [facility], 174, cm, 10/01/19 13:58:00 EDT, Height, [...] Gm, 11 Refills, Maintenance, 05/07/20 10:33:00 EST, [facility], 30, 1 puffs Inhalation 4 times [...] Maintenance, 04/27/2113:59:00 EST, Route to Pharmacy Electronically, [facility], 174, cm, 11/16/20 11:26:00 EST, Height, 57, kg, 03/19/19 14:07:00 EST, Dry Weight Start Date: 04/27/20 Status: Ordered fluticasone 50 mcg/inh nasal spray See Instructions, INSTILL 1 SPRAY INTO EACH NOSTRIL TWICE DAILY, # 16 Gm, 2 Refills, Maintenance, [facility], 30, INSTILL 1 SPRAY INTO EACH [...] 10/14/19 8:46:00 EDT, Route to Pharmacy Electronically, [facility], 174, cm, 10/01/19 13:58:00 EDT, Height, 57, kg, 03/19/19 14:07:... Start Date: 10/14/19 Status: Ordered Nasacort Allergy 24HR 55 mcg/inh nasal spray 2 sprays, Nares, Both, Daily, # 3 each, 0 Refills, Maintenance, 01/08/20 14:50:00 EDT, [facility], 2 sprays Nares, Both Daily, 174, [...] 1 Refills, Maintenance, 03/23/20 10:59:00 EST, Tablet, [facility], 174, cm, 03/01/20 11:26:00 EST, Height, 57, kg, 03/19/19 14:07:00 EST, DryWeight Start Date: 03/23/20 Status: Ordered PriLOSEC OTC 20 mg oral delayed release tablet 1 tablet = 20 mg, By Mouth, Daily, # 14 tablet, 0 Refills, Maintenance, 06/08/20 10:27:00 EST, EC Tablet, [facility], Partial fill upon [...] 05/05/20 13:42:00 EST, Route to Pharmacy Electronically, [facility], 174, cm, 03/01/20 11:26:00 EST, Height, [...] 13:51:00 EST, Aerosol, Route to Pharmacy Electronically, [id number], [facility], 174,cm, 05/07/20 10:13:00 EST, Height, 57, kg, 03/19/19... Start Date: 05/25/20 Status: Ordered traZODone 50 mg oral tablet 100 mg, 2, tablet, By Mouth, Daily at bedtime, # 60 tablet, Refills 5, Tot. Refills 5, Maintenance,03/08/20 9:08:00 EST, Route to Pharmacy Electronically, [facility], 174, cm, 03/01/20 11:26:00 EST, Height, [...]
--- OUTSIDE RECORDS SUMMARY | 2022-09-19 20:58 | XMS_ITS | Continuity of Care Document ---
Author Name Unknown Organization [facility] al Address [address] [place] [address]- Care Team Providers Care Magnet Maker Name Role Phone Mike Kruse MD Primary Care Physician Encounter [facility] Date(s): 02/07/22 - 02/07/[address] [address]- Encounter Diagnosis COPD exacerbation(Final) - 02/07/22 Discharge Disposition: A-D/C Home Attending Physician: Nando Malcolm MD Admitting Physician: Nando Malcolm MD Referring Physician: Not on Staff, Referring MD Allergies, Adverse Reactions, Alerts Substance Reaction Severity Status lisinopril Atenolol Trisha norvegensis Active cloNIDine Active Immunizations Given and Recorded Vaccine Date Status Refusal Reason [id number] 12y+ bivalent booster vax 1 01/20/22 Given [...] tetanus/diphtheria/pertussis, acel(Tdap) 04/01/09 Recorded 1Result Comment: [facility] [id number] 2Location History: [facility] 3Result Comment: [11/22/2016] [facility] 4Result Comment: [03/20/2016] [facility] Medications albuterol 0.083% inhalation solution 3 mL = 2.5 mg, Inhalation, Every 6 hours, PRN for wheezing, # 60 each, 5 Refills, Maintenance, 10/28/21 14:18:00 EDT, Solution, [facility]/pharmacy #1230, 165, cm, 10/28/21 4:51:00 EDT, Height, 60.5, kg, 10/26/21 13:16:00 EDT, Dry Weight Start Date: 10/28/21 Status: Ordered amLODIPine 5 mg oral tablet 5 mg, 1, tablet, By Mouth, Daily, # 90 tablet, Refills 1, Tot. Refills 1, Soft Stop, 10/19/21 9:10:00 EDT, Route to Pharmacy Electronically, [facility]/pharmacy #1230, 180, cm, 09/26/21 10:49:00 EDT, Height, 77, kg, 04/20/21 15:47:00 EST, Dry Weight Start Date: 10/19/21 Status: Ordered Aspirin Low Dose 81 mg oral delayed release tablet 1 tablet, By Mouth, Daily, # 30 tablet, 11 Refills, 10/19/21 9:10:00 EDT, [facility]/pharmacy #1230, 180, cm, 09/26/21 10:49:00 EDT, Height, 77, kg, 04/20/21 15:47:00 EST, Dry Weight Start Date: 10/19/21 Status: Ordered azithromycin 250 mg oral tablet 1 tablet = 250 mg, By Mouth, Daily, for 4 days, # 4 tablet, 0 Refills, Acute 02/11/22 18:10:00 EDT,02/07/22 18:10:00 EDT, Tablet, [facility], Partial fill upon patient request if the prescription is for a schedule II opioid drug., 163, cm,... Start Date: 02/07/22 Stop Date: 02/11/22 Status: Ordered Breo Ellipta 200 mcg-25 mcg/inh [...] each, 5 Refills, Maintenance, 12/19/21 15:27:00 EDT, [facility], 30, USE 1 SPRAY IN EACH NOSTRIL TWICE A DAY, 162, cm, 12/16/21 14:39:00 EDT, Height, 59.5, kg, 12/16/21 0:28:00... Start Date: 12/19/21 Status: Ordered guaiFENesin 400 mg oral tablet 1 tablet = 400 mg, By Mouth, 4 times a day, # 120 tablet, 5 Refills, Maintenance, 10/28/21 14:19:00EDT, Tablet, [facility]/pharmacy #1230, 165, cm, 10/28/21 4:51:00 EDT, Height, [...] tablet, 4 Refills, Maintenance, 12/23/21 13:25:00 EDT, [facility], 162, cm, 12/16/21 14:39:00 EDT, Height, 59.5, kg, 12/16/21 0:28:00 EDT, Dry Weight Start Date: 12/23/21 Status: Ordered magnesium oxide 400 mg oral tablet 1 tablet, By Mouth, Daily, # 30 tablet, 6 Refills, Maintenance, 10/19/21 9:10:00 [facility], cm, 09/26/21 10:49:00 EDT, Height, 77, kg, 04/20/21 15:47:00 EST, Dry Weight Start Date: 10/19/21 Stop Date: 10/19/21 Status: Ordered Metoprolol Succinate ER 50 mg oral tablet, extended release 1 tablet, By Mouth, Daily, INSTR:DO NOT CRUSH OR CHEW, # 30 tablet, 5 Refills, 10/19/21 9:10:00 EDT, [facility], cm, 09/26/21 10:49:00 EDT, Height, 77, kg, 04/20/21 15:47:00 EST, Dry Weight Start Date: 10/19/21 Status: Ordered MiraLax oral powder for reconstitution = 17 Gm, By Mouth, 2 times a day, dissolve in water before taking, # 527 Gm, 11 Refills, Maintenance, 10/19/21 9:10:00 EDT, REC Powder, [facility]/pharmacy #1230, Partial fill upon patient request if the prescription is for a schedule II opioid drug., 17 Gm... Start Date: 10/19/21 Status: Ordered montelukast 10 mg oral tablet See Instructions, TAKE 1 TABLET BY MOUTH EVERY DAY AT BEDTIME, # 30 tablet, Refills 11, Tot. Refills 11, Maintenance, 01/20/22 14:03:00 EDT, Instructions Replace Required Details, Route to Pharmacy Electronically, [facility]/pharmacy #1230, 162, cm, 01/20/22... Start Date: 01/20/22 Status: Ordered omeprazole 20 mg oral delayed release tablet 1 tablet = 20 mg, By Mouth, Daily, # 30 tablet, 11 Refills, Maintenance, 07/10/22 15:48:00 EDT, CR Tablet, [facility]/pharmacy #1230, Partial fill upon patient request if the prescription is for a schedule II opioid drug., 180, cm, 09/26/21 10:49:00 EDT, Hei... Start Date: 07/10/22 Stop Date: 07/05/23 Status: Ordered Plavix 75 mg oral tablet 75 mg, 1, tablet, By Mouth, Daily, # 90 tablet, Refills 1, Tot. Refills 1, Maintenance, 11/18/21 16:53:00 EDT, Route to Pharmacy Electronically, [facility]/pharmacy #1230, Partial fill upon patient request if the prescription is for a schedule II opioid drug... Start Date: 11/18/21 Status: Ordered pravastatin 40 mg oral tablet See Instructions, TAKE 1 TABLET BY MOUTH EVERY DAY, # 30 tablet, 5 Refills, Maintenance, 12/19/21 15:29:00 EDT, [facility], 162, cm, 12/16/21 14:39:00 EDT, Height, 59.5, kg, 12/16/21 0:28:00 EDT, Dry Weight Start Date: 12/19/21 Status: Ordered predniSONE 20 mg oral tablet 3 tablet = 60 mg, By Mouth, Daily, for 5 days, # 15 tablet, 0 Refills, Acute 02/12/22 18:30:00 EDT,02/07/22 18:30:00 EDT, Tablet, [facility]/pharmacy #1230, Partial fill upon patient request if the prescription is for a schedule II opioid drug., 163, cm, 10... Start Date: 02/07/22 Stop Date: 02/12/22 Status: Ordered ProAir HFA 90 mcg/inh inhalation aerosol with adapter 2, puffs, Inhalation, Every 6 hours, PRN, # 8.5 Gm, Refills 1, Tot. Refills 1, 12/13/21 12:40:00 EDT, Route to Pharmacy Electronically, [id number], [facility],162, cm, 12/13/21 4:46:00 EDT, Height, 60.3, kg, 08... Start Date: 12/13/21 Status: Ordered riboflavin 400 mg oral capsule 1 capsule = 400 mg, By Mouth, Daily, # 30 capsule, 5 Refills, Maintenance, 10/19/21 9:10:00 EDT, [facility]/pharmacy #1230, Partial fill upon patient request if the prescription is for a schedule II opioid drug., 180, cm, 09/26/21 10:49:00 EDT, Height, 77, k... Start Date: 10/19/21 Status: Ordered SEROquel 25 mg oral tablet 25 mg, 1, tablet, By Mouth, Daily at bedtime, # 30 tablet, Refills 5, Tot. Refills 5, Maintenance, 10/28/21 14:23:00 EDT, [facility], 165, cm, 10/28/21 4:51:00 EDT, Height, 60.5, kg, 10/26/21 13:16:00 EDT, Dry... Start Date: 10/28/21 Status: Ordered Spiriva Respimat 1.25 mcg/inh inhalation aerosol 2 puffs, Inhalation, Daily, # 4 Gm, 5 Refills, 10/19/21 9:10:00 EDT, [facility]/pharmacy #1230, 180, cm, 09/26/21 10:49:00 EDT, Height, 77, kg, 04/20/21 15:47:00 EST, Dry Weight Start Date: 10/19/21 Status: Ordered Symbicort 160mcg/4.5mcg Inhaler 2, puffs, Inhalation, 2 times a day, # 10.2 Gm, Refills 10, Tot. Refills 10, 10/19/21 9:10:00 EDT, Route to Pharmacy Electronically, [id number], [facility]/pharmacy #1230, 180, cm,09/26/21 10:49:00 EDT, Height, 77, kg, 04/20/21 15:... Start Date: 10/19/21 Status: Ordered tamsulosin 0.4 mg oral capsule 1, capsule, By Mouth, Daily, # 30 capsule, Refills 4, Tot. Refills 4, Maintenance, 10/19/21 9:10:00EDT, Route to Pharmacy Electronically, [facility]/pharmacy #1230, 180, cm, 09/26/21 10:49:00 EDT, Height, 77, kg, 04/20/21 15:47:00 EST, Dry Weight Start Date: 10/19/21 Status: Ordered venlafaxine 37.5 mg oral capsule, extended release 37.5 mg, 1, capsule, By Mouth, Daily, # 30 capsule, Refills 1, Tot. Refills 1, Maintenance, 01/30/22 13:06:00 EDT, Route to Pharmacy Electronically, [facility], Partial fill upon patient request if the prescription is for a schedule II opioi... Start Date: 01/30/22 Status: Ordered Zithromax 250 mg oral tablet 1 pack/packet, By Mouth, Once, # 6 tablet, 0 Refills, Soft Stop, 02/07/22 18:30:00 EDT, Tablet, [facility]/pharmacy #1230, Partial fill upon patient request if [...] Exam Date Time Procedure Performing Provider Status 02/07/22 5:21 PM Chest 2 Views Frontal and Lat Leah Winter; Auth (Verified) Notes: (Chest 2 Views Frontal and Lat) Reason For Exam: Shortness of Breath, Fever;Other: RESULT: Chest 2 Views Frontal and Lat Chest 2 Views Frontal and Lat Hx of Present Illness: Shortness of breath. COMPARISON: 12/15/2021 FINDINGS: LINES AND TUBES: None. LUNGS AND PLEURA: Large lung volumes. Otherwise, lungs are clear. No pleural effusion. No pneumothorax. HEART, MEDIASTINUM AND GRETEL: Heart is normal in size. Normal mediastinal and hilar contour. BONES AND SOFT TISSUES: No acute abnormality. IMPRESSION: COPD. No acute radiographic process. # WSN: [id number] Ordering Physician: Kirill Billingsley Dictated By: Roel Thakkar MD Dictated Date/Time: 02/07/22 5:30 pm Reviewed By: Roel Thakkar MD Signed By: Roel Thakkar MD Signed Date/Time: 02/07/22 5:30 pm Transcribed By: JAX Transcribed Date/Time: 02/07/22 5:28 pm Vital Signs Most recent to oldest [Reference Range]: 1 2 3 Height 163 cm (02/07/22 6:18 PM) 163 cm (02/07/22 4:18 PM) 163 cm (02/07/22 3:50 PM) Weight 60 kg (02/07/22 3:50 PM) Oxygen Saturation [94-100 %] 100 % (02/07/22 6:18 PM) 96 % (02/07/22 4:18 PM) Pulse Rate [55-90 bpm] 83 bpm (02/07/22 6:18 PM) 80 bpm (02/07/22 4:18 PM) Blood Pressure [90-138/55-84 mm Hg] 121/66mm Hg (02/07/22 6:18 PM) 138/78mm Hg (02/07/22 4:18 PM) Respiratory Rate [16-30 br/min] 22 br/min (02/07/22 6:18 PM) 26 br/min (02/07/22 4:18 PM) Temperature [96.8-100.4 DegF] 97.8 DegF (02/07/22 6:18 PM) 98.1 DegF (02/07/22 4:18 PM) Liters per Minute 0 L/min (02/07/22 6:18 PM) 0 L/min (02/07/22 4:18 PM) Mode of Delivery (Oxygen) Room air (02/07/22 6:18 PM) Room air (02/07/22 4:18 PM) Blood pressure sites Arm, left (02/07/22 6:18 PM) Arm, left (02/07/22 4:18 PM) Temperature Route Oral (02/07/22 6:18 PM) Oral (02/07/22 4:18 PM) Dry Weight 60 kg (02/07/22 3:50 PM) Weight Obtained Via Patient/family state d (02/07/22 3:50 PM) Dry Weight Obtained Via Patient/family s tated (02/07/22 3:50 PM) Social History Social History Type Response Smoking Status Former smoker, quit more than 30 days ago entered on: 09/26/21 Sex Note * [facility] , CIS S: TRANSCRIBE Roel Thakkar MD: VERIFY Event Display: Result: Authored Date: [id number] Chest 2 Views Frontal and Lat Hx of Present Illness: Shortness of breath. COMPARISON: 12/15/2021 FINDINGS: LINES AND TUBES: None. LUNGS AND PLEURA: Large lung volumes. Otherwise, lungs are clear. No pleural effusion. No pneumothorax. HEART, MEDIASTINUM AND GRETEL: Heart is normal in size. Normal mediastinal and hilar contour. BONES AND SOFT TISSUES: No acute abnormality. IMPRESSION: COPD. No acute radiographic process. # WSN: [id number] Ordering Physician: Kirill Billingsley Dictated By: Roel Thakkar MD Dictated Date/Time: 02/07/22 5:30 pm Reviewed By: Roel Thakkar MD Signed By: Roel Thakkar MD Signed Date/Time: 02/07/22 5:30 pm Transcribed By: JAX Transcribed Date/Time: 02/07/22 5:28 pm Patient Care team information Personnel Name: Mike Kruse MD Address: Address: [address], [place] [address]
--- OUTSIDE RECORDS SUMMARY | 2022-09-19 20:58 | XMS_ITS | Continuity of Care Document ---
Author Name Unknown Organization [facility] Trevor Address [address] [place] [address]- Care Team Providers Care [employer] Driver Name Role Phone Mike Kruse MD Primary Care Physician Encounter [facility] Date(s): 10/27/21 - 11/26/21 [facility] Adult [address] [place] [address]- Allergies, Adverse Reactions, Alerts Substance Reaction Severity [...] 5 Refills, Maintenance, 10/28/21 14:18:00 EDT, Solution, [facility]/pharmacy #1230, 165, cm, 10/28/21 4:51:00 EDT, Height, 60.5, kg, 10/26/21 13:16:00 EDT, Dry Weight Start Date: 10/28/21 Status: Ordered amLODIPine 5 mg oral tablet 5 mg, 1, tablet, By Mouth, Daily, # 90 tablet, Refills 1, Tot. Refills 1, Soft Stop, 10/19/21 9:10:00 EDT, Route to Pharmacy Electronically, [facility]/pharmacy #1230, 180, cm, 09/26/21 10:49:00 EDT, Height, 77, kg, 04/20/21 15:47:00 EST, Dry Weight Start Date: 10/19/21 Status: Ordered Aspirin Low Dose 81 mg oral delayed release tablet 1 tablet, By Mouth, Daily, # 30 tablet, 11 Refills, 10/19/21 9:10:00 EDT, [facility]acy #1230, 180, cm, 09/26/21 10:49:00 EDT, Height, 77, kg, 04/20/21 15:47:00 EST, Dry Weight Start Date: 10/19/21 Status: Ordered Dulcolax Stool Softener 100 mg oral capsule 1 capsule = 100 mg, By Mouth, 2 times a day, # 60 capsule, 11 Refills, Maintenance, 07/21/22 14:09:00 EDT, Capsule, [facility]/pharmacy #1230, Partial fill upon patient request if the prescription is for a schedule II opioid drug., 180, cm, 09/26/21 10:49:00... Start Date: 07/21/22 Stop Date: 07/16/23 Status: Ordered fluticasone 50 mcg/inh nasal spray See Instructions, USE 1 SPRAY IN EACH NOSTRIL TWICE A DAY, # 16 Gm, 5 Refills, 10/19/21 9:10:00 EDT, [facility]/pharmacy #1230, 30, USE 1 SPRAY IN EACH NOSTRIL TWICE A DAY, 180, cm, 09/26/21 10:49:00 EDT, Height, 77, kg, 04/20/21 15:47:00 EST, Dry Weight Start Date: 10/19/21 Status: Ordered guaiFENesin 100 mg/5 mL oral liquid 5 mL = 100 mg, By Mouth, Every 4 hours, PRN for cough, # 300 mL, 0 Refills, Maintenance, 10/12/21 17:43:00 EDT, Liquid, [facility]/pharmacy #1230, Partial fill upon patient request if the prescription is for a schedule II opioid drug., 180, cm, 09/26/21 10:4... Start Date: 10/12/21 Status: Ordered guaiFENesin 400 mg oral tablet 1 tablet = 400 mg, By Mouth, 4 times a day, # 120 tablet, 5 Refills, Maintenance, 10/28/21 14:19:00EDT, Tablet, [facility]/pharmacy #1230, 165, cm, 10/28/21 4:51:00 EDT, Height, 60.5, kg, 10/26/21 13:16:00EDT, Dry Weight Start Date: 10/28/21 Status: Ordered losartan 100 mg oral tablet 1 tablet, By Mouth, Daily, # 30 tablet, 5 Refills, Maintenance, 10/19/21 9:10:00 EDT, [facility]/pharmacy #1230, 180, cm, 09/26/21 10:49:00 EDT, Height, 77, kg, 04/20/21 15:47:00 EST, Dry Weight Start Date: 10/19/21 Status: Ordered magnesium oxide 400 mg oral tablet 1 tablet, By Mouth, Daily, # 30 tablet, 6 Refills, Maintenance, 10/19/21 9:10:00 EDT, [facility]/pharmacy #1230, 180, cm, 09/26/21 10:49:00 EDT, Height, 77, kg, 04/20/21 15:47:00 EST, Dry Weight Start Date: 10/19/21 Stop Date: 10/19/21 Status: Ordered Metoprolol Succinate ER 50 mg oral tablet, extended release 1 tablet, By Mouth, Daily, INSTR:DO NOT CRUSH OR CHEW, # 30 tablet, 5 Refills, 10/19/21 9:10:00 EDT, [facility]/pharmacy #1230, 180, cm, 09/26/21 10:49:00 EDT, Height, 77, kg, 04/20/21 15:47:00 EST, Dry Weight Start Date: 10/19/21 Status: Ordered MiraLax oral powder for reconstitution = 17 Gm, By Mouth, 2 times a day, dissolve in water before taking, # 527 Gm, 11 Refills, Maintenance, 10/19/21 9:10:00 EDT, REC Powder, [facility]/pharmacy #1230, Partial fill upon patient request if the prescription is for a schedule II opioid drug., 17 Gm... Start Date: 10/19/21 Status: Ordered montelukast 10 mg oral tablet 1, tablet, By Mouth, Daily at bedtime, # 30 tablet, Refills 5, Tot. Refills 5, 10/19/21 9:10:00 EDT, Route to Pharmacy Electronically, [facility]/pharmacy #1230, 180, cm, 09/26/21 10:49:00 EDT, Height, 77, kg, 04/20/21 15:47:00 EST, Dry Weight Start Date: 10/19/21 Status: Ordered omeprazole 20 mg oral delayed release tablet 1 tablet = 20 mg, By Mouth, Daily, # 30 tablet, 11 Refills, Maintenance, 07/10/22 15:48:00 EDT, CR Tablet, [facility]/pharmacy #1230, Partial fill upon patient request if the prescription is for a schedule II opioid drug., 180, cm, 09/26/21 10:49:00 EDT, Hei... Start Date: 07/10/22 Stop Date: 07/05/23 Status: Ordered Plavix 75 mg oral tablet 75 mg, 1, tablet, By Mouth, Daily, # 90 tablet, Refills 1, Tot. Refills 1, Maintenance, 11/18/21 16:53:00 EDT, Route to Pharmacy Electronically, [facility]/pharmacy #1230, Partial fill upon patient request if the prescription is for a schedule II opioid drug... Start Date: 11/18/21 Status: Ordered pravastatin 40 mg oral tablet 1 tablet = 40 mg, By Mouth, Daily, # 90 tablet, 1 Refills, Maintenance, 10/19/21 9:10:00 EDT, Tablet, [facility]/pharmacy #1230, 180, cm, 09/26/21 10:49:00 EDT, Height, 77, kg, 04/20/21 15:47:00 EST, Dry Weight Start Date: 10/19/21 Status: Ordered ProAir HFA 90 mcg/inh inhalation aerosol with adapter 2, puffs, Inhalation, Every 6 hours, PRN, # 8.5 Gm, Refills 6, Tot. Refills 6, 10/19/21 9:10:00 EDT, Route to Pharmacy Electronically, [id number], [facility]/pharmacy #1230, 180, cm, 09/26/21 10:49:00 EDT, Height, 77, kg, 04/20/21 1... Start Date: 10/19/21 Status: Ordered riboflavin 400 mg oral capsule 1 capsule = 400 mg, By Mouth, Daily, # 30 capsule, 5 Refills, Maintenance, 10/19/21 9:10:00 EDT, [facility]/pharmacy #1230, Partial fill upon patient request if the prescription is for a schedule II opioid drug., 180, cm, 09/26/21 10:49:00 EDT, Height, 77, k... Start Date: 10/19/21 Status: Ordered SEROquel 25 mg oral tablet 25 mg, 1, tablet, By Mouth, Daily at bedtime, # 30 tablet, Refills 5, Tot. Refills 5, Maintenance, 10/28/21 14:23:00 EDT, Route to Pharmacy Electronically, [facility]/pharmacy #1230, 165, cm, 10/28/21 4:51:00 EDT, Height, 60.5, kg, 10/26/21 13:16:00 EDT, Dry... Start Date: 10/28/21 Status: Ordered Spiriva Respimat 1.25 mcg/inh inhalation aerosol 2 puffs, Inhalation, Daily, # 4 Gm, 5 Refills, 10/19/21 9:10:00 EDT, [facility]/pharmacy #1230, 180, cm, 09/26/21 10:49:00 EDT, Height, 77, kg, 04/20/21 15:47:00 EST, Dry Weight Start Date: 10/19/21 Status: Ordered Symbicort 160mcg/4.5mcg Inhaler 2, puffs, Inhalation, 2 times a day, # 10.2 Gm, Refills 10, Tot. Refills 10, 10/19/21 9:10:00 EDT, Route to Pharmacy Electronically, [id number], [facility]/pharmacy #1230, 180, cm,09/26/21 10:49:00 EDT, Height, 77, kg, 04/20/21 15:... Start Date: 10/19/21 Status: Ordered tamsulosin 0.4 mg oral capsule 1, capsule, By Mouth, Daily, # 30 capsule, Refills 4, Tot. Refills 4, Maintenance, 10/19/21 9:10:00EDT, Route to Pharmacy Electronically, [facility]/pharmacy #1230, 180, cm, 09/26/21 10:49:00 EDT, Height, 77, kg, 04/20/21 15:47:00 EST, Dry Weight Start Date: 10/19/21 Status: Ordered venlafaxine 37.5 mg oral capsule, extended release 37.5 mg, 1, capsule, By Mouth, Daily, # 30 capsule, Refills 1, Tot. Refills 1, Maintenance, 10/19/21 9:10:00 EDT, Route to Pharmacy Electronically, [facility]/pharmacy #1230, Partial fill upon patient request if [...]
--- OUTSIDE RECORDS SUMMARY | 2022-09-19 20:58 | XMS_ITS | Continuity of Care Document ---
Author Name Unknown Organization [facility] Trevor lt Address [address] [place] [address]- Care Team Providers Care Cytology Teacher Name Role Phone Mike Tristan MD Primary Care Physician [facility]counter [facility] Date(s): 02/10/19 - 04/16/19 [facility] Adult [address] [place] [address]- [facility] Attending Physician: Rachell Shannon NP Referring Physician: [...] 12:22:16 EDT, Aerosol, Route to Pharmacy Electronically, N[facility]_ID-[id number], [address] Start Date: 10/24/18 Status: Ordered amLODIPine 5 mg oral tablet 5 mg, 1, tablet, By Mouth, Daily, # 90 tablet, Refills 3, Tot. Refills 3, Soft Stop, 02/10/19 13:40:35 EDT, Route to Pharmacy Electronically, [facility]_[id number], [facility] - [address] [place] [address] Start Date: 02/10/19 Stop Date: 06/10/19 Status: [...] 04/18/18 8:57:12 EST, [id number] [address] Start Date: 04/18/18 Status: Ordered hydrocortisone [...] three times a day for 7 days, [address] Start Date: 01/24/19 Status: Ordered metoprolol 50 mg oral tablet, extended release 50 mg, 1, tablet, By Mouth, Daily, do not crush or chew, # 30 tablet, Refills 11, Tot. Refills 11, Maintenance, 04/18/18 8:56:34 EST, Route to Pharmacy Electronically, N[facility]_[id number], [address] Start Date: 04/18/18 Status: Ordered Nicoderm [...] 8:55:27 EST, Route to Pharmacy Electronically, [facility]DP_ID- [id number], [facility] - [address] [facility] Start Date: 04/18/18 Status: Ordered pravastatin 40 mg oral tablet 1 tablet = 40 mg, By Mouth, Daily, # 30 tablet, 11 Refills, Maintenance, 02/10/19 13:20:48 EDT, Tablet Start Date: 02/10/19 Status: Ordered Singulair 10 mg oral tablet 10 mg, 1, tablet, By Mouth, Daily at bedtime, PER RACHELL DUNN, # 30 tablet, Refills 11, Tot. Refills 11, Maintenance, 04/18/18 8:56:29 EST, Route to Pharmacy Electronically, [facility]_[id number], [facility] - [address] [facility] Start Date: 04/18/18 Status: Ordered [...] 04/18/18 8:57:13 EST, Route to Pharmacy Electronically, NCPDP_[id number], [facility] - [address] [facility] Start Date: 04/18/18 Status: Ordered [...]
--- OUTSIDE RECORDS SUMMARY | 2022-09-19 20:58 | XMS_ITS | Continuity of Care Document ---
Author Name Unknown Organization [facility] Trevor lt Address [address] [place] [id number]- Care Team Providers Care Gluer Machine Operator Name Role Phone Mike Tristan MD Primary Care Physician [facility] Date[facility]): 04[facility]20 - 05/19/20 [facility] Adult [address] [place] [address]- Allergies, Adverse Reactions, Alerts Substance Reaction Severity [...] 05/05/20 13:45:00 EST, Route to Pharmacy Electronically, [facility], 174, cm, 03/01/20 11:26:00 EST, Height, 57, kg, 03/19/19 14:07:00 EST, Dry Weight Start Date: 05/05/20 Status: Ordered aspirin 81 mg oral tablet 1 tablet = 81 mg, By Mouth, Daily, PER DR TRISTAN, # 30 tablet, 5 Refills, Maintenance, 10/13/19 13:42:00 EDT, Tablet, [facility], 174, cm, 10/01/19 13:58:00 EDT, Height, [...] 0 Refills, Maintenance, 02/13/20 14:46:00 EDT, Tablet, [facility], 1 tablet By Mouth 2 times a day,Instr:as directed on package labeling, 174, cm, 02/13/20 14:1... Start Date: 02/13/20 Status: Ordered Combivent Respimat 20 mcg-100 mcg/inh inhalation aerosol 1 puffs, Inhalation, 4 times a day, PRN NEEDED FOR WHEEZING OR SHORTNESS OF BREATH, # 4 Gm, 11 Refills, Maintenance, 05/07/20 10:33:00 EST, [facility], 30, 1 puffs Inhalation 4 times [...] Maintenance, 04/27/2113:59:00 EST, Route to Pharmacy Electronically, [facility], 174, cm, 03/01/20 11:26:00 EST, Height, 57, kg, 03/19/19 14:07:00 EST, Dry Weight Start Date: 04/27/20 Status: Ordered fluticasone 50 mcg/inh nasal spray See Instructions, INSTILL 1 SPRAY INTO EACH NOSTRIL TWICE DAILY, # 16 Gm, 2 Refills, Maintenance, [facility], 30, INSTILL 1 SPRAY INTO EACH [...] tablet, 0 Refills, Maintenance, 05/06/20 8:04:00 EST, [facility], 174, cm, 03/01/20 11:26:00 EST, Height, 57, kg, 03/19/19 14:07:00 EST, Dry Weight Start Date: 05/06/20 Status: Ordered metoprolol 50 mg oral tablet, extended release 50 mg, 1, tablet, By Mouth, Daily, do not crush or chew, # 30 tablet, Refills 2, Tot. Refills 2, Maintenance, 10/14/19 8:46:00 EDT, Route to Pharmacy Electronically, [facility], 174, cm, 10/01/19 13:58:00 EDT, Height, 57, kg, 03/19/19 14:07:... Start Date: 10/14/19 Status: Ordered Nasacort Allergy 24HR 55 mcg/inh nasal spray 2 sprays, Nares, Both, Daily, # 3 each, 0 Refills, Maintenance, 01/08/20 14:50:00 EDT, [facility], 2 sprays Nares, Both Daily, 174, [...] 1 Refills, Maintenance, 03/23/20 10:59:00 EST, Tablet, [facility], 174, cm, 03/01/20 11:26:00 EST, Height, 57, kg, 03/19/19 14:07:00 EST, DryWeight Start Date: 03/23/20 Status: Ordered Singulair 10 mg oral tablet 10 mg, 1, tablet, By Mouth, Daily at bedtime, PER ARPIT PRITCHARD NP-C, # 30 tablet, Refills 5, Tot. Refills 5, Maintenance, 05/05/20 13:42:00 EST, Route to Pharmacy Electronically, [facility], 174, cm, 03/01/20 11:26:00 EST, Height, 57, kg, 12... Start Date: 05/05/20 Status: Ordered traZODone 50 mg oral tablet 100 mg, 2, tablet, By Mouth, Daily at bedtime, # 60 tablet, Refills 5, Tot. Refills 5, Maintenance,03/08/20 9:08:00 EST, Route to Pharmacy Electronically, [facility], 174, cm, 03/01/20 11:26:00 EST, Height, 57, kg, 03/19/19 14:07:00 EST, Start Date: 03/08/20 Status: Ordered Trelegy Ellipta 200 mcg-62.5 mcg-25 mcg/inh inhalation powder 1 puffs, Inhalation, Daily, at the same time every day, # 1 each, 11 Refills, Maintenance, 05/07/2109:33:00 EST, Powder, [facility], Partial fill upon patient request if [...] 5 Refills, Maintenance, 03/08/20 8:02:00 EST, Tablet, [facility], 174, cm, 03/01/20 11:26:00 EST, Height, [...]
--- OUTSIDE RECORDS SUMMARY | 2022-09-19 20:58 | XMS_ITS | Continuity of Care Document ---
Author Name Unknown Organization [facility] Trevor lt Address [address] [place] [address]- Care Team Providers Care Strip Machine Operator Name Role Phone Mike Tristan MD Primary Care Physician [facility]): 05/05/20 - 06/04/20 [facility] Adult [address] [place] [address]- Allergies, Adverse Reactions, Alerts Substance Reaction Severity [...] Gm, 11 Refills, Maintenance, 05/07/20 10:33:00 EST, [facility], 30, 1 puffs Inhalation 4 times [...] Maintenance, 04/27/2113:59:00 EST, Route to Pharmacy Electronically, [facility], 174, cm, 03/01/20 11:26:00 EST, Height, 57, kg, 03/19/19 14:07:00 EST, Dry Weight Start Date: 04/27/20 Status: Ordered fluticasone 50 mcg/inh nasal spray See Instructions, INSTILL 1 SPRAY INTO EACH NOSTRIL TWICE DAILY, # 16 Gm, 2 Refills, Maintenance, [facility], 30, INSTILL 1 SPRAY INTO EACH [...] tablet, 0 Refills, Maintenance, 05/06/20 8:04:00 EST, [facility], 174, cm, 03/01/20 11:26:00 EST, Height, 57, kg, 03/19/19 14:07:00 EST, Dry Weight Start Date: 05/06/20 Status: Ordered metoprolol 50 mg oral tablet, extended release 50 mg, 1, tablet, By Mouth, Daily, do not crush or chew, # 30 tablet, Refills 2, Tot. Refills 2, Maintenance, 10/14/19 8:46:00 EDT, Route to Pharmacy Electronically, [facility], 174, cm, 10/01/19 13:58:00 EDT, Height, 57, kg, 03/19/19 14:07:... Start Date: 10/14/19 Status: Ordered Nasacort Allergy 24HR 55 mcg/inh nasal spray 2 sprays, Nares, Both, Daily, # 3 each, 0 Refills, Maintenance, 01/08/20 14:50:00 EDT, [facility], 2 sprays Nares, Both Daily, 174, [...] 1 Refills, Maintenance, 03/23/20 10:59:00 EST, Tablet, [facility], 174, cm, 03/01/20 11:26:00 EST, Height, 57, kg, 03/19/19 14:07:00 EST, DryWeight Start Date: 03/23/20 Status: Ordered Singulair 10 mg oral tablet 10 mg, 1, tablet, By Mouth, Daily at bedtime, PER ARPIT PRITCHARD NP-C, # 30 tablet, Refills 5, Tot. Refills 5, Maintenance, 05/05/20 13:42:00 EST, Route to Pharmacy Electronically, [facility], 174, cm, 03/01/20 11:26:00 EST, Height, 57, kg, 12... Start Date: 05/05/20 Status: Ordered Spiriva Respimat 1.25 mcg/inh inhalation aerosol 2 puffs, Inhalation, Daily, # 4 Gm, 11 Refills, Maintenance, 05/25/20 13:51:00 EST, Aerosol, [facility], Partial fill upon patient request if the prescription is for a schedule II opioid drug., 174, cm, 05/07/20 10:13:00 EST, Height, 57, kg,... Start Date: 05/25/20 Status: Ordered Symbicort 160mcg/4.5mcg Inhaler 2, puffs, Inhalation, 2 times a day, # 1 each, Refills 11, Tot. Refills 11, Maintenance, 05/25/20 13:51:00 EST, Aerosol, Route to Pharmacy Electronically, [id number], [facility], 174,cm, 05/07/20 10:13:00 EST, Height, 57, kg, 03/19/19... Start Date: 05/25/20 Status: Ordered traZODone 50 mg oral tablet 100 mg, 2, tablet, By Mouth, Daily at bedtime, # 60 tablet, Refills 5, Tot. Refills 5, Maintenance,03/08/20 9:08:00 EST, Route to Pharmacy Electronically, [facility], 174, cm, 03/01/20 11:26:00 EST, Height, [...] 5 Refills, Maintenance, 03/08/20 8:02:00 EST, Tablet, [facility] [...]
--- OUTSIDE RECORDS SUMMARY | 2022-09-19 20:58 | XMS_ITS | Continuity of Care Document ---
Author Name Unknown Organization [facility] Trevor Address [address] [place] [address]- Care Team Providers Care Creative Producer Name Role Phone Mike Kruse MD Primary Care Physician [facility]): 04/25/22 - 08/23/22 [facility] Adult [address] [place] [address]- Attending Physician: Mike Kruse MD Allergies, Adverse Reactions, Alerts Substance Reaction Severity Status lisinopril Atenolol Trisha norvegensis Active cloNIDine Active Immunizations Given and Recorded Vaccine Date Status Refusal Reason [id number] 12y+ bivalent booster vax 1 01/20/22 Given [...] acel(Tdap) 04/01/09 Recorded 1Result Comment: [facility] [place] [id number] 2Location History: [facility] 3Result Comment: [11/22/2016] [facility] 4Result Comment: [03/20/2016] [facility] Medications acetaminophen 325 mg oral tablet 650 mg, 2, tablet, By Mouth, Every 4 hours, PRN, # 30 tablet, Refills 0, Tot. Refills 0, Maintenance, Pain , Mild, 02/21/22 15:17:00 EST, Route to Pharmacy Electronically, [facility], Partial fill upon patient request if the prescription... Start Date: 02/21/22 Status: Ordered amLODIPine 5 mg oral tablet 1 tablet, By Mouth, Daily, # 90 tablet, 1 Refills, Maintenance, 02/09/22 12:58:00 EDT, [facility] STORE [id number], 163, cm, 02/07/22 18:18:00 EDT, Height, 60, [...] 11 Refills, Maintenance, 04/25/22 10:31:00 EST, Tablet, [facility]/pharmacy #[id number], Partial fill upon patient request if the prescription is for a schedule II opioid drug., 163, cm, 03/30/22 10:35:00 EST, Height, 60, kg,... Start Date: 04/25/22 Status: Ordered clopidogrel 75 mg oral tablet 1, tablet, By Mouth, Daily, # 90 tablet, Refills 1, Maintenance, 05/09/22 14:00:00 EST, Route to Pharmacy Electronically, [facility] STORE [id number], 163, cm, 03/30/22 10:35:00 EST, Height, 60, kg, 02/07/22 15:54:00 EDT, Dry Weight Start Date: 05/09/22 Status: Ordered fluticasone 50 mcg/inh nasal spray See Instructions, SPRAY 1 SPRAY INTO EACH NOSTRIL TWICE A DAY, # 48 mL, 1 Refills, Maintenance, 04/25/22 18:01:00 EST, [facility]/pharmacy #[id number], 90, SPRAY 1 SPRAY INTO EACH NOSTRIL TWICE A DAY, 163, cm, 03/30/22 10:35:00 EST, Height, 60, kg, 02/07/22 15:54:... Start Date: 04/25/22 Status: Ordered guaiFENesin 400 mg oral tablet 1 tablet = 400 mg, By Mouth, 4 times a day, # 120 tablet, 5 Refills, Maintenance, 10/28/21 14:19:00EDT, Tablet, [facility]/pharmacy #[id number], 165, cm, 10/28/21 4:51:00 EDT, [...] tablet, 3 Refills, Maintenance, 04/26/22 9:42:00 EST, [facility] STORE [id number], 163, cm, 03/30/22 10:35:00 EST, Height, 60, [...] 90 tablet, 1 Refills,Maintenance, 04/25/22 18:03:00 EST, [facility]/pharmacy #[id number], 163, cm, 03/30/22 10:35:00 EST, [...] 03/15/22 15:34:00 EST, Route to Pharmacy Electronically, [facility]/pharmacy #[id number], Partial fill upon patient request [...] 15:17:00 EST, Route to Pharmacy Electronically, [facility], Partial fill upon patient request [...] tablet, 1 Refills, Maintenance, 05/28/22 10:29:00 EST, [facility] STORE [id number], 163, cm, 03/30/22 10:35:00 EST, Height, 60, kg, 02/07/22 15:54:00 EDT, Dry Weight Start Date: 05/28/22 Status: Ordered riboflavin 400 mg oral capsule 1 capsule = 400 mg, By Mouth, Daily, # 30 capsule, 5 Refills, Maintenance, 06/01/22 12:01:00 EST, [facility]/pharmacy #[id number], Partial fill upon patient request [...] Electronically, [facility]/pharmacy #[id number], 165, cm, 10/28/21 4:51:00 EDT, Height, 60.5, kg, 10/26/21 13:16:00 EDT, Dry... Start Date: 10/28/21 Status: Ordered Spiriva Respimat 1.25 mcg/inh inhalation aerosol 2 puffs, Inhalation, Daily, # 4 mL, 3 Refills, Maintenance, 06/28/22 8:12:00 EDT, [facility] [id number], 163, cm, 06/02/22 12:59:00 EST, Height, 60, kg, 02/07/22 15:54:00 EDT, Dry Weight Start Date: 06/28/22 Status: Ordered Symbicort 160mcg/4.5mcg Inhaler 2, puffs, Inhalation, 2 times a day, # 10.2 Gm, Refills 10, Tot. Refills 10, 10/19/21 9:10:00 EDT, Route to Pharmacy Electronically, [id number], [facility]/pharmacy #[id number], 180, cm,09/26/21 10:49:00 EDT, Height, 77, kg, 04/20/21 15:... Start Date: 10/19/21 Status: Ordered tamsulosin 0.4 mg oral capsule 1, capsule, By Mouth, Daily, # 30 capsule, Refills 11, Tot. Refills 11, Maintenance, 04/25/22 9:53:00 EST, Route to Pharmacy Electronically, [facility]/pharmacy #[id number], 163, cm, 03/30/22 10:35:00 EST, Height, 60, kg, 02/07/22 15:54:00 EDT, Dry Weight Start Date: 04/25/22 Status: Ordered traZODone 50 mg oral tablet 2, tablet, By Mouth, Daily at bedtime, # 60 tablet, Refills 3, Maintenance, 06/28/22 8:12:00 EDT, Route to Pharmacy Electronically, [facility]ORE [id number], 163, cm, 06/02/22 12:59:00 EST, Height, 60, kg, 02/07/22 15:54:00 EDT, Dry Weight Start Date: 06/28/22 Status: Ordered venlafaxine 37.5 mg oral capsule, extended release 1 capsule, By Mouth, Daily, # 30 capsule, 1 Refills, Maintenance, 05/29/22 11:48:00 EST, [facility], 163, cm, 03/30/22 10:35:00 EST, Height, 60, kg, 02/07/22 15:54:00 EDT, Dry Weight Start Date: 05/29/22 Status: Ordered Ventolin HFA 108 mcg/inh inhalation aerosol with adapter 2 puffs, Inhalation, Every 4 hours, PRN NEEDED FOR WHEEZING, # 18 each, 11 Refills, Maintenance,04/26/22 9:42:00 EST, [facility], 163, cm, 03/30/22 10:35:00 EST, Height, 60, [...] Team Personnel Name: Ana West RN Position: [facility] RN Member Role: Primary Care Nurse Name: Odalys Orozco RN Position: [facility] RN Member Role: Primary Care Nurse Name: Mike Kruse MD Position: [facility] Primary Care Physician Member Role: PCP Address: Address: [address] [place] [address] Name: Maryam Valenzuela RN Position: [facility] RN Member Role: Primary Care Nurse Name: Deandre Lara LPN Position: [facility] RN Member Role: Primary Care Nurse Name: Hayden Queen RN Position: [facility] RN Member Role: Primary Care Nurse Name: Aruna Winkler RN Position: [facility] RN Member Role: Primary Care Nurse Name: Sabrina Hare RN Position: [facility] RN Member Role: Primary Care Nurse Name: Kristyn Olivo RN Position: [facility] RN Member Role: Primary Care Nurse Name: Marguerite Florentino RN Position: [facility] RN Member Role: Primary Care Nurse Care Team Related Persons Name: ENA SOTO Address: home [address] [place] [address] Name: ELISA TOMPKINS Address: [place] [address] Name: JOSE RAFAEL LI
--- OUTSIDE RECORDS SUMMARY | 2022-09-19 20:58 | XMS_ITS | Continuity of Care Document ---
Author Name Unknown Organization [facility] Trevor lt Address [address] [place] [address]- Care Team Providers Care Field Technician Name Role Phone Mike Tristan MD Primary Care Physician Encounter [facility] Date(s): 01/08/20 - 01/15/20 [facility] Adult [address] [place] [address]- [facility] Attending Physician: Rachell Shannon NP Referring Physician: [...] 12:49:00 EDT, Aerosol, Route to Pharmacy Electronically, [id number]_[id number], [facility], 174, cm, 10/01/19 13:58:00 EDT, Height, 57, kg, 03/19... Start Date: 11/17/19 Status: Ordered amLODIPine 5 mg oral tablet 5 mg, 1, tablet, By Mouth, Daily, # 90 tablet, Refills 3, Tot. Refills 3, Soft Stop, 02/10/19 13:40:35 EDT, Route to Pharmacy Electronically, NCPDP_[id number], [facility] - [address] [place] [address] Start Date: 02/10/19 Stop Date: 06/10/19 Status: Ordered aspirin 81 mg oral tablet 1 tablet = 81 mg, By Mouth, Daily, PER DR TRISTAN, # 30 tablet, 5 Refills, Maintenance, 10/13/19 13:42:00 EDT, Tablet, [facility], 174, cm, 10/01/19 13:58:00 EDT, Height, 57, kg, 03/19/19 14:07:00 EST, Dry Weight Start Date: 10/13/19 Status: Ordered Combivent Respimat 20 mcg-100 mcg/inh inhalation aerosol 1 puffs, Inhalation, 4 times a day, PRN Wheezing/Shortness of Breath, # 1 each, 0 Refills, Maintenance, 06/12/19 8:06:00 EST, Aerosol, [facility], 1 puffs Inhalation 4 times a [...] Maintenance, 10/12/2012:42:00 EDT, Route to Pharmacy Electronically, [facility], 174, cm, 10/01/19 13:58:00 EDT, Height, [...] 10/14/19 8:46:00 EDT, Route to Pharmacy Electronically, [facility], 174, cm, 10/01/19 13:58:00 EDT, Height, 57, kg, 03/19/19 14:07:... Start Date: 10/14/19 Status: Ordered Nasacort Allergy 24HR 55 mcg/inh nasal spray 2 sprays, Nares, Both, Daily, # 3 each, 0 Refills, Maintenance, 01/08/20 14:50:00 EDT, [facility], 2 sprays Nares, Both Daily, 174, [...] 10/13/19 13:42:00 EDT, Route to Pharmacy Electronically, [facility], 174, cm, 10/01/19 13:58:00 EDT, Height, 57, kg, 12... Start Date: 10/13/19 Status: Ordered Spiriva HandiHaler 18 mcg inhalation capsule 1 capsule = 18 mcg, Inhalation, Daily, use two inhalations of one capsule for each dose, # 30 capsule, 6 Refills, Maintenance, 07/10/19 14:54:00 EDT, [facility], 174, cm, 05/26/19 14:06:00 EST, Height, 57, kg, 03/19/19 14:07:00 EST, Dry Weight Start Date: 07/10/19 Stop Date: 02/05/20 Status: Ordered traZODone 50 mg oral tablet 100 mg, 2, tablet, By Mouth, Daily at bedtime, # 60 tablet, Refills 5, Tot. Refills 5, Maintenance,01/06/20 15:12:00 EDT, Route to Pharmacy Electronically, [facility], 174, cm, 10/01/19 13:58:00 EDT, Height, [...] 5 Refills, Maintenance, 01/06/20 15:11:00 EDT, Tablet, [facility], 174, cm, 10/01/19 13:58:00 EDT, Height, [...] oldest [Reference Range]: 1 Height 174 cm (01/08/20 2:29 PM) Weight 61.3 kg (01/08/20 2:29 PM) Oxygen Saturation [94-100 %] 96 % (01/08/20 2:29 PM) Body Mass Index [18.5-24.99] 20.25 (01/08/20 2:29 PM) Blood Pressure [90-138/55-84 mm Hg] 128/ 74mm Hg (01/08/20 2:29 PM) Temperature [96.8-100.4 DegF] 98.2 DegF (01/08/20 2:29 PM) Blood pressure sites Arm, right (01/08/20 2:29 PM) Temperature Route Oral (01/08/20 2:29 PM) Social History Social History Type Response Smoking Status 5-9 cigarettes (betw een 1/4 to 1/2 pack)/day in last 30 days entered on: 05/26/19 Sex
--- OUTSIDE RECORDS SUMMARY | 2022-09-19 20:58 | XMS_ITS | Continuity of Care Document ---
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 Name Role Phone Aixa BERNABE, Mike Bennett Primary Care Physician [phone] [facility]counter [facility] Date[facility]s): 11/30/20 - 12/07/20 [facility] Adult [address] [place] [address]- Encounter Diagnosis Mold exposure(Discharge Diagnosis) - 11/30/20 Attending Physician: Not on Staff, Attending MD [...] 05/05/20 13:45:00 EST, Route to Pharmacy Electronically, [facility], 174, cm, 03/01/20 11:26:00 EST, Height, 57, kg, 03/19/19 14:07:00 EST, Dry Weight Start Date: 05/05/20 Status: Ordered aspirin 81 mg oral tablet 1 tablet = 81 mg, By Mouth, Daily, PER DR TRISTAN, # 30 tablet, 5 Refills, Maintenance, 10/13/19 13:42:00 EDT, Tablet, [facility], 174, cm, 10/01/19 13:58:00 EDT, Height, 57, kg, 03/19/19 14:07:00 EST, Dry Weight Start Date: 10/13/19 Status: Ordered Combivent Respimat 20 mcg-100 mcg/inh inhalation aerosol 1 puffs, Inhalation, 4 times a day, PRN NEEDED FOR WHEEZING OR SHORTNESS OF BREATH, # 4 Gm, 11 Refills, Maintenance, 05/07/20 10:33:00 EST, [facility], 30, 1 puffs Inhalation 4 times [...] 16 Gm, 2 Refills, 08/24/20 15:55:00 EDT, [facility], 30, INSTILL 1 SPRAY INTO EACH [...] 1 Refills, Maintenance, 11/30/20 11:11:00 EDT, Capsule, [facility], Partial fill upon patient request if [...] 07/12/20 14:44:00 EDT, Route to Pharmacy Electronically, [facility], 174, cm,07/12/20 14:32:00 EDT, Height, 57, kg, 03/19/19 14:... Start Date: 07/12/20 Status: Ordered montelukast 10 mg oral tablet 1, tablet, By Mouth, Daily at bedtime, # 30 tablet, Refills 4, Tot. Refills 0, Maintenance, 10/20/20 11:07:00 EDT, Route to Pharmacy Electronically, [facility], 174, cm, 09/14/20 14:37:00 EDT, Height, 57, kg, 03/19/19 14:07:00 EST, Dry Weight Start Date: 10/20/20 Status: Ordered Nasacort Allergy 24HR 55 mcg/inh nasal spray 2 sprays, Nares, Both, Daily, # 3 each, 0 Refills, Maintenance, 01/08/20 14:50:00 EDT, [facility], 2 sprays Nares, Both Daily, 174, cm, 01/08/20 14:29:00 EDT, Height, 57, kg, 03/19/19 14:07:00 EST, Dry Weight Start Date: 01/08/20 Status: Ordered nicotine 4 mg oral transmucosal lozenge 1 lozenge = 4 mg, By Mouth, Every hour, # 189 lozenge, 11 Refills, Maintenance, 07/12/20 14:49:00 EDT, [facility], 1 lozenge By Mouth Every hour, [...] 1 Refills, Maintenance, 08/24/20 15:56:00 EDT, Tablet, [facility], 174, cm, 08/17/20 13:45:00 EDT, Height, 57, kg, 03/19/19 14:07:00 EST, DryWeight Start Date: 08/24/20 Status: Ordered Remeron 15 mg oral tablet 1 tablet = 15 mg, By Mouth, Daily at bedtime, REPLACES ZOLOFT, # 30 tablet, 1 Refills, Maintenance,06/22/20 15:13:00 EST, Tablet, [facility], Partial fill upon patient request if [...] 13:51:00 EST, Aerosol, Route to Pharmacy Electronically, [id number], [facility], 174,cm, 05/07/20 10:13:00 EST, Height, 57, kg, 03/19/19... Start Date: 05/25/20 Status: Ordered tamsulosin 0.4 mg oral capsule 1, capsule, By Mouth, Daily, # 30 capsule, Refills 4, Tot. Refills 0, Maintenance, 10/20/20 11:06:00 EDT, Route to Pharmacy Electronically, [facility], 174, cm, 09/14/20 14:37:00 EDT, Height, 57, kg, 03/19/19 14:07:00 EST, Dry Weight Start Date: 10/20/20 Status: Ordered traZODone 50 mg oral tablet 100 mg, 2, tablet, By Mouth, Daily at bedtime, # 60 tablet, Refills 11, Tot. Refills 11, Maintenance, 07/12/20 14:43:00 EDT, Route to Pharmacy Electronically, [facility], 174, cm, 07/12/20 14:32:00 EDT, Height, 57, kg, 03/19/19 14:07:00 EST,... Start Date: 07/12/20 Status: Ordered Tylenol Extra Strength 500 mg oral tablet See Instructions, PRN for pain, 1 or 2 tablet By Mouth 3 times a day PER DR TRISTAN, # 100 tablet, 11 Refills, Maintenance, 06/08/20 10:22:00 EST, Tablet, [facility], 174, cm, 06/08/20 9:48:00 EST, [...] Dates Health Status Cl inical Service Informant Mold exposure Discharge Diagnosis 11/30/20 Vital Signs Most recent to oldest [Reference Range]: 1 Height 174 cm (11/30/20 10:34 AM) Weight 64.0 kg (11/30/20 10:34 AM) Body Mass Index [18.5-24.99] 21.14 (11/30/20 10:34 AM) Social History Social History Type Response Smoking Status 5-9 cigarettes (betw een 1/4 to 1/2 pack)/day in last 30 days entered on: 05/26/19 Sex
--- OUTSIDE RECORDS SUMMARY | 2022-09-19 20:58 | XMS_ITS | Continuity of Care Document ---
Author Name Unknown Organization [facility] Trevor Address [address] [place] [id number]- Care Team Providers Care Errand Runner Name Role Phone Mike Tristan MD Primary Care Physician Encounter [facility] Date(s): 12/19/19 - 12/26/19 [facility] Adult [address] [place] [id number]- [facility] Encounter Diagnosis Sinus pain(Discharge Diagnosis) - 12/19/19 SOB (shortness of breath)(Discharge Diagnosis) - 12/19/19 COPD exacerbation(Discharge Diagnosis) - 12/19/19 Attending Physician: Kwan HOOD, Malinda Marin Allergies, Adverse Reactions, Alerts Substance Reaction Severity [...] 12:49:00 EDT, Aerosol, Route to Pharmacy Electronically, NCPDP_[id number], [facility], 174, cm, 10/01/19 13:58:00 EDT, Height, 57, kg, 03/19... Start Date: 11/17/19 Status: Ordered amLODIPine 5 mg oral tablet 5 mg, 1, tablet, By Mouth, Daily, # 90 tablet, Refills 3, Tot. Refills 3, Soft Stop, 02/10/19 13:40:35 EDT, Route to Pharmacy Electronically, NCPDP_[id number], [facility] [address] [facility] Start Date: 02/10/19 Stop Date: 06/10/19 Status: Ordered aspirin 81 mg oral tablet 1 tablet = 81 mg, By Mouth, Daily, PER DR TRISTAN, # 30 tablet, 5 Refills, Maintenance, 10/13/19 13:42:00 EDT, Tablet, [facility], 174, cm, 10/01/19 13:58:00 EDT, Height, 57, kg, 03/19/19 14:07:00 EST, Dry Weight Start Date: 10/13/19 Status: Ordered Azithromycin 5 Day Dose Pack 250 mg oral tablet 1 pack/packet, By Mouth, Once, # 6 tablet, 0 Refills, Soft Stop, 12/19/19 14:29:00 EDT, Tablet, [facility], 174, cm, 10/01/19 13:58:00 EDT, Height, 57, kg, 03/19/19 14:07:00 EST, Dry Weight Start Date: 12/19/19 Status: Ordered Combivent Respimat 20 mcg-100 mcg/inh inhalation aerosol 1 puffs, Inhalation, 4 times a day, PRN Wheezing/Shortness of Breath, # 1 each, 0 Refills, Maintenance, 06/12/19 8:06:00 EST, Aerosol, [facility], 1 puffs Inhalation 4 times a [...] Maintenance, 10/12/2012:42:00 EDT, Route to Pharmacy Electronically, [facility], 174, cm, 10/01/19 13:58:00 EDT, Height, [...] 12/28/19 14:37:00 EDT, 10/29/19 14:37:00 EDT, Tablet, [facility], 174, cm, 10/01/19 13:58:00 EDT, Height, 57, kg, 03/19/19 14:07:00 EST,... Start Date: 10/29/19 Stop Date: 12/28/19 Status: Ordered metoprolol 50 mg oral tablet, extended release 50 mg, 1, tablet, By Mouth, Daily, do not crush or chew, # 30 tablet, Refills 2, Tot. Refills 2, Maintenance, 10/14/19 8:46:00 EDT, Route to Pharmacy Electronically, [facility], 174, cm, 10/01/19 13:58:00 EDT, Height, [...] 10/13/19 13:42:00 EDT, Route to Pharmacy Electronically, [facility], 174, cm, 10/01/19 13:58:00 EDT, Height, 57, kg, 12... Start Date: 10/13/19 Status: Ordered Spiriva HandiHaler 18 mcg inhalation capsule 1 capsule = 18 mcg, Inhalation, Daily, use two inhalations of one capsule for each dose, # 30 capsule, 6 Refills, Maintenance, 07/10/19 14:54:00 EDT, [facility], 174, cm, 05/26/19 14:06:00 EST, Height, 57, kg, 03/19/19 14:07:00 EST, Dry Weight Start Date: 07/10/19 Stop Date: 02/05/20 Status: Ordered traZODone 50 mg oral tablet 100 mg, 2, tablet, By Mouth, Daily at bedtime, # 60 tablet, Refills 2, Tot. Refills 2, Maintenance,10/14/19 8:46:00 EDT, Route to Pharmacy Electronically, [facility], 174, cm, 10/01/19 13:58:00 EDT, Height, 57, kg, 03/19/19 14:07:00 EST, . Start Date: 10/14/19 Status: Ordered Tylenol Extra [...] 5 Refills, Maintenance, 07/10/19 14:54:00 EDT, Tablet, [facility], 174, cm, 05/26/19 14:06:00 EST, Height, [...] Effective Dates Health Status Clinical Service Informant Sinus pain Discharge Diagnosis 12/19/19 SOB (shortness of breath) Discharge Diagnosis 12/19/19 COPD exacerbation Discharge Diagnosis 12/19/19 Social History Social History Type Response Smoking Status 5-9 cigarettes (betw een 1/4 to 1/2 pack)/day in last 30 days entered on: 05/26/19 Sex
--- OUTSIDE RECORDS SUMMARY | 2022-09-19 20:58 | XMS_ITS | Continuity of Care Document ---
Author Name Unknown Organization [facility] Trevor lt Address [address] [place] [address]- Care Team Providers Care Digital Field Service Technician Name Role Phone Mike Tristan MD Primary Care Physician [phone] Encounter [facility] Date(s): 03/01/20 - 03/31/20 [facility] Adult [address] [place] [address]- Attending Physician: Admtr, [id number] Admitting Physician: Admtr, [...] 12:49:00 EDT, Aerosol, Route to Pharmacy Electronically, MEPDP_[id number], [facility], 174, cm, 10/01/19 13:58:00 EDT, Height, 57, kg, 03/19... Start Date: 11/17/19 Status: Ordered amLODIPine 5 mg oral tablet 5 mg, 1, tablet, By Mouth, Daily, # 90 tablet, Refills 1, Tot. Refills 1, Soft Stop, 03/23/20 11:00:00 EST, Route to Pharmacy Electronically, [facility], 174, cm, 03/01/20 11:26:00 EST, Height, 57, kg, 03/19/19 14:07:00 EST, Dry Weight Start Date: 03/23/20 Status: Ordered aspirin 81 mg oral tablet 1 tablet = 81 mg, By Mouth, Daily, PER DR TRISTAN, # 30 tablet, 5 Refills, Maintenance, 10/13/19 13:42:00 EDT, Tablet, [facility], 174, cm, 10/01/19 13:58:00 EDT, Height, 57, kg, 03/19/19 14:07:00 EST, Dry Weight Start Date: 10/13/19 Status: Ordered Azithromycin 5 Day Dose Pack 250 mg oral tablet 1 pack/packet, By Mouth, Once, # 6 tablet, 0 Refills, Soft Stop, 03/01/20 12:01:00 EST, Tablet, [facility], Partial fill upon patient request, 174, cm, 03/01/20 11:26:00 EST, Height, 57, kg, 03/19/19 14:07:00 EST, Dry Weight Start Date: 03/01/20 Status: Ordered Chantix Starter Pack 0.5 mg-1 mg oral tablet 1 tablet, By Mouth, 2 times a day, as directed on package labeling, # 53 tablet, 0 Refills, Maintenance, 02/13/20 14:46:00 EDT, Tablet, [facility], 1 tablet By Mouth 2 times a day,Instr:as directed on package labeling, 174, cm, 02/13/20 14:1... Start Date: 02/13/20 Status: Ordered Combivent Respimat 20 mcg-100 mcg/inh inhalation aerosol 1 puffs, Inhalation, 4 times a day, PRN Wheezing/Shortness of Breath, # 1 each, 0 Refills, Maintenance, 03/12/20 14:48:00 EST, Aerosol, [facility], 1 puffs Inhalation 4 times a [...] Maintenance, 10/12/2012:42:00 EDT, Route to Pharmacy Electronically, [facility], 174, cm, 10/01/19 13:58:00 EDT, Height, [...] 10/14/19 8:46:00 EDT, Route to Pharmacy Electronically, [facility], 174, cm, 10/01/19 13:58:00 EDT, Height, 57, kg, 03/19/19 14:07:... Start Date: 10/14/19 Status: Ordered Nasacort Allergy 24HR 55 mcg/inh nasal spray 2 sprays, Nares, Both, Daily, # 3 each, 0 Refills, Maintenance, 01/08/20 14:50:00 EDT, [facility], 2 sprays Nares, Both Daily, 174, [...] 1 Refills, Maintenance, 03/23/20 10:59:00 EST, Tablet, [facility], 174, cm, 03/01/20 11:26:00 EST, Height, 57, kg, 03/19/19 14:07:00 EST, DryWeight Start Date: 03/23/20 Status: Ordered Singulair 10 mg oral tablet 10 mg, 1, tablet, By Mouth, Daily at bedtime, PER ARPIT PRITCHARD NP-C, # 30 tablet, Refills 5, Tot. Refills 5, Maintenance, 10/13/19 13:42:00 EDT, Route to Pharmacy Electronically, [facility], 174, cm, 10/01/19 13:58:00 EDT, Height, 57, kg, 12... Start Date: 10/13/19 Status: Ordered Spiriva HandiHaler 18 mcg inhalation capsule 1 capsule = 18 mcg, Inhalation, Daily, use two inhalations of one capsule for each dose, # 30 capsule, 5 Refills, Maintenance, 02/18/20 9:52:00 EST, [facility], 174, cm, 02/13/20 14:17:00 EDT, Height, 57, kg, 03/19/19 14:07:00 EST, Dry Weight Start Date: 02/18/20 Stop Date: 08/16/20 Status: Ordered traZODone 50 mg oral tablet 100 mg, 2, tablet, By Mouth, Daily at bedtime, # 60 tablet, Refills 5, Tot. Refills 5, Maintenance,03/08/20 9:08:00 EST, Route to Pharmacy Electronically, [facility], 174, cm, 03/01/20 11:26:00 EST, Height, [...] 5 Refills, Maintenance, 03/08/20 8:02:00 EST, Tablet, [facility], 174, cm, 03/01/20 11:26:00 EST, Height, [...]
--- OUTSIDE RECORDS SUMMARY | 2022-09-19 20:58 | XMS_ITS | Continuity of Care Document ---
Author Name Unknown Organization [facility] Trevor lt Address [address] [place] [address]- Care Team Providers Care Rib Stiffener And Heel Dipper Name Role Phone Mike Tristan MD Primary Care Physician Encounter [facility] Date(s): 03/17/19 - 03/27/19 [facility] Adult [address] [place] [address]- [facility] Attending Physician: Admtr, [id number] Admitting Physician: Admtr, Eliza Referring Physician: Admtr, [...] 12:22:16 EDT, Aerosol, Route to Pharmacy Electronically, NCP_ID-[id number], [facility] - [address] [facility] Start Date: 10/24/18 Status: Ordered amLODIPine 5 mg oral tablet 5 mg, 1, tablet, By Mouth, Daily, # 90 tablet, Refills 3, Tot. Refills 3, Soft Stop, 02/10/19 13:40:35 EDT, Route to Pharmacy Electronically, NCPDP_[id number], [facility] - [address] [facility] Start Date: 02/10/19 Stop Date: [...] 04/18/18 8:57:12 EST, Route to Pharmacy Electronically, NCP_ID- [id number], [facility] Start Date: 04/18/18 Status: Ordered hydrocortisone 1% [...] three times a day for 7 days, [facility] [address] Start Date: 01/24/19 Status: Ordered metoprolol 50 mg oral tablet, extended release 50 mg, 1, tablet, By Mouth, Daily, do not crush or chew, # 30 tablet, Refills 11, Tot. Refills 11, Maintenance, 04/18/18 8:56:34 EST, Route to Pharmacy Electronically, NCPDP_[id number], [facility] - [address] Start Date: 04/18/18 Status: Ordered Nicoderm C-Q [...] 8:55:27 EST, Route to Pharmacy Electronically, NCPDP_ID- [id number], [facility] - [address] Start Date: 04/18/18 Status: Ordered pravastatin [...] 04/18/18 8:56:29 EST, Route to Pharmacy Electronically, NCPDP_ID-[id number], [facility] [address] Start Date: 04/18/18 Status: Ordered Spiriva [...] 04/18/18 8:57:13 EST, Route to Pharmacy Electronically, NCPDP_ID-[id number], [facility] [address] Start Date: 04/18/18 Status: Ordered Tylenol [...]
--- OUTSIDE RECORDS SUMMARY | 2022-09-19 20:58 | XMS_ITS | Continuity of Care Document ---
Author Name Unknown Organization [facility] Trevor lt Address [address] [place] [address]- Care Team Providers Care Knee Bolter Name Role Phone Mike Kruse MD Primary Care Physician [phone] Encounter [facility] Date(s): 12/14/21 - 01/13/22 [facility] Adult [address] [place] [address]- Allergies, Adverse Reactions, Alerts Substance Reaction Severity [...] Refills, Maintenance, 10/28/21 14:18:00 EDT, Solution, [facility]/pharmacy #[id number], 165, cm, 10/28/21 4:51:00 EDT, Height, 60.5, kg, 10/26/21 13:16:00 EDT, Dry Weight Start Date: 10/28/21 Status: Ordered amLODIPine 5 mg oral tablet 5 mg, 1, tablet, By Mouth, Daily, # 90 tablet, Refills 1, Tot. Refills 1, Soft Stop, 10/19/21 9:10:00 EDT, Route to Pharmacy Electronically, [facility]/pharmacy #[id number], 180, cm, 09/26/21 10:49:00 EDT, Height, 77, kg, 04/20/21 15:47:00 EST, Dry Weight Start Date: 10/19/21 Status: Ordered Aspirin Low Dose 81 mg oral delayed release tablet 1 tablet, By Mouth, Daily, # 30 tablet, 11 Refills, 10/19/21 9:10:00 EDT, [facility]/pharmacy #[id number], 180, cm, 09/26/21 10:49:00 EDT, [...] Gm, 0 Refills, Maintenance, 12/20/21 15:24:00 EDT, [facility], 30, INHALE 1 PUFF BY MOUTH FOUR TIMESDAILY NEEDED FOR WHEEZE OR SHORTNESS OF BREATH,... Start Date: 12/20/21 Status: Ordered fluticasone 50 mcg/inh nasal spray See Instructions, USE 1 SPRAY IN EACH NOSTRIL TWICE A DAY, # 16 each, 5 Refills, Maintenance, 12/19/21 15:27:00 EDT, [facility], 30, USE 1 SPRAY IN EACH NOSTRIL TWICE A DAY, 162, cm, 12/16/21 14:39:00 EDT, Height, 59.5, kg, 12/16/21 0:28:00... Start Date: 12/19/21 Status: Ordered guaiFENesin 400 mg oral tablet 1 tablet = 400 mg, By Mouth, 4 times a day, # 120 tablet, 5 Refills, Maintenance, 10/28/21 14:19:00EDT, Tablet, [facility]/pharmacy #[id number], 165, cm, 10/28/21 4:51:00 EDT, [...] tablet, 4 Refills, Maintenance, 12/23/21 13:25:00 EDT, [facility], 162, cm, 12/16/21 14:39:00 EDT, Height, 59.5, kg, 12/16/21 0:28:00 EDT, Dry Weight Start Date: 12/23/21 Status: Ordered magnesium oxide 400 mg oral tablet 1 tablet, By Mouth, Daily, # 30 tablet, 6 Refills, Maintenance, 10/19/21 9:10:00 EDT, [facility]/pharmacy #1230, 180, cm, 09/26/21 10:49:00 EDT, Height, 77, kg, 04/20/21 15:47:00 EST, Dry Weight Start Date: 10/19/21 Stop Date: 10/19/21 Status: Ordered Metoprolol Succinate ER 50 mg oral tablet, extended release 1 tablet, By Mouth, Daily, INSTR:DO NOT CRUSH OR CHEW, # 30 tablet, 5 Refills, 10/19/21 9:10:00 EDT, [facility]/pharmacy #[id number], 180, cm, 09/26/21 10:49:00 EDT, Height, 77, kg, 04/20/21 15:47:00 EST, Dry Weight Start Date: 10/19/21 Status: Ordered MiraLax oral powder for reconstitution = 17 Gm, By Mouth, 2 times a day, dissolve in water before taking, # 527 Gm, 11 Refills, Maintenance, 10/19/21 9:10:00 EDT, REC Powder, [facility]/pharmacy #[id number], Partial fill upon patient request if the prescription is for a schedule II opioid drug., 17 Gm... Start Date: 10/19/21 Status: Ordered montelukast 10 mg oral tablet See Instructions, TAKE 1 TABLET BY MOUTH EVERY DAY AT BEDTIME, # 30 tablet, Refills 5, Maintenance,12/19/21 15:29:00 EDT, Instructions Replace Required Details, Route to Pharmacy Electronically, [facility], 162, cm, 12/16/21 14:39:00 EDT, H... Start Date: 12/19/21 Status: Ordered omeprazole 20 mg oral delayed release tablet 1 tablet = 20 mg, By Mouth, Daily, # 30 tablet, 11 Refills, Maintenance, 07/10/22 15:48:00 EDT, CR Tablet, [facility]/pharmacy #1230, Partial fill upon patient request if the prescription is for a schedule II opioid drug., 180, cm, 09/26/21 10:49:00 EDT, Hei... Start Date: 07/10/22 Stop Date: 07/05/23 Status: Ordered Plavix 75 mg oral tablet 75 mg, 1, tablet, By Mouth, Daily, # 90 tablet, Refills 1, Tot. Refills 1, Maintenance, 11/18/21 16:53:00 EDT, Route to Pharmacy Electronically, [facility]/pharmacy #1230, Partial fill upon patient request if the prescription is for a schedule II opioid drug... Start Date: 11/18/21 Status: Ordered pravastatin 40 mg oral tablet See Instructions, TAKE 1 TABLET BY MOUTH EVERY DAY, # 30 tablet, 5 Refills, Maintenance, 12/19/21 15:29:00 EDT, [facility], 162, cm, 12/16/21 14:39:00 EDT, [...] 0 Refills, Maintenance, 12/13/21 12:37:00 EDT, Tablet, [facility]... Start Date: 12/13/21 Status: Ordered ProAir HFA [...] 12/13/21 12:40:00 EDT, Route to Pharmacy Electronically, [id number], [facility] 3,162, cm, 12/13/21 4:46:00 EDT, Height, 60.3, kg, 08... Start Date: 12/13/21 Status: Ordered riboflavin 400 mg oral capsule 1 capsule = 400 mg, By Mouth, Daily, # 30 capsule, 5 Refills, Maintenance, 10/19/21 9:10:00 EDT, [facility]/pharmacy #1230, Partial fill upon patient request if the prescription is for a schedule II opioid drug., 180, cm, 09/26/21 10:49:00 EDT, Height, 77, k... Start Date: 10/19/21 Status: Ordered SEROquel 25 mg oral tablet 25 mg, 1, tablet, By Mouth, Daily at bedtime, # 30 tablet, Refills 5, Tot. Refills 5, Maintenance, 10/28/21 14:23:00 EDT, Route to Pharmacy Electronically, [facility]/pharmacy #1230, 165, cm, 10/28/21 4:51:00 EDT, Height, 60.5, kg, 10/26/21 13:16:00 EDT, Dry... Start Date: 10/28/21 Status: Ordered Spiriva Respimat 1.25 mcg/inh inhalation aerosol 2 puffs, Inhalation, Daily, # 4 Gm, 5 Refills, 10/19/21 9:10:00 EDT, [facility]/pharmacy #1230, 180, cm, 09/26/21 10:49:00 EDT, Height, 77, kg, 04/20/21 15:47:00 EST, Dry Weight Start Date: 10/19/21 Status: Ordered Symbicort 160mcg/4.5mcg Inhaler 2, puffs, Inhalation, 2 times a day, # 10.2 Gm, Refills 10, Tot. Refills 10, 10/19/21 9:10:00 EDT, Route to Pharmacy Electronically, [id number], [facility]/pharmacy #1230, 180, cm,09/26/21 10:49:00 EDT, Height, 77, kg, 04/20/21 15:... Start Date: 10/19/21 Status: Ordered tamsulosin 0.4 mg oral capsule 1, capsule, By Mouth, Daily, # 30 capsule, Refills 4, Tot. Refills 4, Maintenance, 10/19/21 9:10:00EDT, Route to Pharmacy Electronically, [facility]/pharmacy #1230, 180, cm, 09/26/21 10:49:00 EDT, Height, 77, kg, 04/20/21 15:47:00 EST, Dry Weight Start Date: 10/19/21 Status: Ordered venlafaxine 37.5 mg oral capsule, extended release 37.5 mg, 1, capsule, By Mouth, Daily, # 30 capsule, Refills 1, Tot. Refills 1, Maintenance, 10/19/21 9:10:00 EDT, Route to Pharmacy Electronically, [facility]/pharmacy #1230, Partial fill upon patient request if the prescription is for a schedule II opioid d... Start Date: 10/19/21 Status: Ordered Vitamin B2 = 400 mg, By Mouth, Daily, 0 Refills, Maintenance, 12/16/21 1:04:00 EDT, Partial fill upon patient request if the prescription is for a schedule II opioid drug. Start Date: 12/16/21 Status: Ordered Problem List Condition Confirmation Course [...] reticularis Confirmed Active Low backache Confirmed Active Pulmonary nodules 2 Confirmed Active [...] Sex Patient Care team information Personnel Name: Aixa BERNABE, Mike Bennett Address: Address: [address] [place] [id number]
--- OUTSIDE RECORDS SUMMARY | 2022-09-19 20:58 | XMS_ITS | Continuity of Care Document ---
Author Name Unknown Organization [facility] Trevor lt Address [address] [place] [address]- Care Team Providers Care Highway Construction Inspector Name Role Phone Mike Kruse MD Primary Care Physician [phone] [facility] Date[facility]): [facility]/22 - 02/19/22 [facility] Adult [address] [place] [address]- Attending Physician: Admtr, Ar8 Admitting Physician: Admtr, Ar8 Referring Physician: Admtr, Ar8 Allergies, Adverse Reactions, Alerts Substance Reaction Severity Status lisinopril Atenolol Trisha norvegensis Active cloNIDine Active Immunizations Given and Recorded Vaccine Date Status Refusal Reason [id number] 12y+ bivalent booster vax 1 01/20/22 Given [...] Given tetanus/diphtheria/pertussis, acel(Tdap) 04/01/09 Recorded 1Result Comment: [facility] [id number] 2Location History: [facility] 3Result Comment: [11/22/2016] [facility] 4Result Comment: [03/20/2016] [facility] Medications albuterol 0.083% inhalation solution 3 mL = 2.5 mg, Inhalation, Every 6 hours, PRN for wheezing, # 60 each, 5 Refills, Maintenance, 10/28/21 14:18:00 EDT, Solution, [facility]/pharmacy #1230, 165, cm, 10/28/21 4:51:00 EDT, Height, 60.5, kg, 10/26/21 13:16:00 EDT, Dry Weight Start Date: 10/28/21 Status: Ordered amLODIPine 5 mg oral tablet 1 tablet, By Mouth, Daily, # 90 tablet, 1 Refills, Maintenance, 02/09/22 12:58:00 EDT, [id number], 163, cm, 02/07/22 18:18:00 EDT, Height, 60, kg, 02/07/22 15:54:00 EDT, Dry Weight Start Date: 02/09/22 Status: Ordered Aspirin Low Dose 81 mg oral delayed release tablet 1 tablet, By Mouth, Daily, # 30 tablet, 11 Refills, 10/19/21 9:10:00 EDT, [facility]/pharmacy #1230, 180, cm, 09/26/21 10:49:00 EDT, [...] each, 5 Refills, Maintenance, 12/19/21 15:27:00 EDT, [facility], 30, USE 1 SPRAY IN EACH NOSTRIL TWICE A DAY, 162, cm, 12/16/21 14:39:00 EDT, Height, 59.5, kg, 12/16/21 0:28:00... Start Date: 12/19/21 Status: Ordered guaiFENesin 400 mg oral tablet 1 tablet = 400 mg, By Mouth, 4 times a day, # 120 tablet, 5 Refills, Maintenance, 10/28/21 14:19:00EDT, Tablet, [facility], 165, cm, 10/28/21 4:51:00 EDT, Height, [...] tablet, 4 Refills, Maintenance, 12/23/21 13:25:00 EDT, [facility], 162, cm, 12/16/21 14:39:00 EDT, Height, 59.5, kg, 12/16/21 0:28:00 EDT, Dry Weight Start Date: 12/23/21 Status: Ordered magnesium oxide 400 mg oral tablet 1 tablet, By Mouth, Daily, # 30 tablet, 6 Refills, Maintenance, 10/19/21 9:10:00 EDT, [facility], 180, cm, 09/26/21 10:49:00 EDT, Height, 77, kg, 04/20/21 15:47:00 EST, Dry Weight Start Date: 10/19/21 Stop Date: 10/19/21 Status: Ordered Metoprolol Succinate ER 50 mg oral tablet, extended release 1 tablet, By Mouth, Daily, INSTR:DO NOT CRUSH OR CHEW, # 30 tablet, 5 Refills, 10/19/21 9:10:00 EDT, [facility]/pharmacy #1230, 180, cm, 09/26/21 10:49:00 EDT, Height, 77, kg, 04/20/21 15:47:00 EST, Dry Weight Start Date: 10/19/21 Status: Ordered MiraLax oral powder for reconstitution = 17 Gm, By Mouth, 2 times a day, dissolve in water before taking, # 527 Gm, 11 Refills, Maintenance, 10/19/21 9:10:00 EDT, REC Powder, [facility]/pharmacy #1230, Partial fill upon patient request if the prescription is for a schedule II opioid drug., 17 Gm... Start Date: 10/19/21 Status: Ordered montelukast 10 mg oral tablet See Instructions, TAKE 1 TABLET BY MOUTH EVERY DAY AT BEDTIME, # 30 tablet, Refills 11, Tot. Refills 11, Maintenance, 01/20/22 14:03:00 EDT, Instructions Replace Required Details, Route to Pharmacy Electronically, [facility]/pharmacy #1230, 162, cm, 01/20/22... Start Date: 01/20/22 Status: Ordered omeprazole 20 mg oral delayed release tablet 1 tablet = 20 mg, By Mouth, Daily, # 30 tablet, 11 Refills, Maintenance, 07/10/22 15:48:00 EDT, CR Tablet, [facility]/pharmacy #1230, Partial fill upon patient request if the prescription is for a schedule II opioid drug., 180, cm, 09/26/21 10:49:00 EDT, Hei... Start Date: 07/10/22 Stop Date: 07/05/23 Status: Ordered Plavix 75 mg oral tablet 75 mg, 1, tablet, By Mouth, Daily, # 90 tablet, Refills 1, Tot. Refills 1, Maintenance, 11/18/21 16:53:00 EDT, Route to Pharmacy Electronically, [facility]/pharmacy #1230, Partial fill upon patient request if the prescription is for a schedule II opioid drug... Start Date: 11/18/21 Status: Ordered pravastatin 40 mg oral tablet See Instructions, TAKE 1 TABLET BY MOUTH EVERY DAY, # 30 tablet, 5 Refills, Maintenance, 12/19/21 15:29:00 EDT, [facility], 162, cm, 12/16/21 14:39:00 EDT, Height, 59.5, kg, 12/16/21 0:28:00 EDT, Dry Weight Start Date: 12/19/21 Status: Ordered ProAir HFA 90 mcg/inh inhalation aerosol with adapter 2, puffs, Inhalation, Every 6 hours, PRN, # 8.5 Gm, Refills 1, Tot. Refills 1, 12/13/21 12:40:00 EDT, Route to Pharmacy Electronically, [id number], [facility],162, cm, 12/13/21 4:46:00 EDT, Height, 60.3, kg, 08... Start Date: 12/13/21 Status: Ordered riboflavin 400 mg oral capsule 1 capsule = 400 mg, By Mouth, Daily, # 30 capsule, 5 Refills, Maintenance, 10/19/21 9:10:00 EDT, [facility]/pharmacy #1230, Partial fill upon patient request if the prescription is for a schedule II opioid drug., 180, cm, 09/26/21 10:49:00 EDT, Height, 77, k... Start Date: 10/19/21 Status: Ordered SEROquel 25 mg oral tablet 25 mg, 1, tablet, By Mouth, Daily at bedtime, # 30 tablet, Refills 5, Tot. Refills 5, Maintenance, 10/28/21 14:23:00 EDT, Route to Pharmacy Electronically, [facility]/pharmacy #1230, 165, cm, 10/28/21 4:51:00 EDT, Height, 60.5, kg, 10/26/21 13:16:00 EDT, Dry... Start Date: 10/28/21 Status: Ordered Spiriva Respimat 1.25 mcg/inh inhalation aerosol 2 puffs, Inhalation, Daily, # 4 Gm, 5 Refills, 10/19/21 9:10:00 EDT, [facility]/pharmacy #1230, 180, cm, 09/26/21 10:49:00 EDT, Height, 77, kg, 04/20/21 15:47:00 EST, Dry Weight Start Date: 10/19/21 Status: Ordered Symbicort 160mcg/4.5mcg Inhaler 2, puffs, Inhalation, 2 times a day, # 10.2 Gm, Refills 10, Tot. Refills 10, 10/19/21 9:10:00 EDT, Route to Pharmacy Electronically, [id number], [facility]/pharmacy #1230, 180, cm,09/26/21 10:49:00 EDT, Height, 77, kg, 04/20/21 15:... Start Date: 10/19/21 Status: Ordered tamsulosin 0.4 mg oral capsule 1, capsule, By Mouth, Daily, # 30 capsule, Refills 4, Tot. Refills 4, Maintenance, 10/19/21 9:10:00EDT, Route to Pharmacy Electronically, [facility]/pharmacy #1230, 180, cm, 09/26/21 10:49:00 EDT, Height, 77, kg, 04/20/21 15:47:00 EST, Dry Weight Start Date: 10/19/21 Status: Ordered venlafaxine 37.5 mg oral capsule, extended release 37.5 mg, 1, capsule, By Mouth, Daily, # 30 capsule, Refills 1, Tot. Refills 1, Maintenance, 02/09/22 12:57:00 EDT, Route to Pharmacy Electronically, [facility]/pharmacy #1230, Partial fill upon patient request if the prescription is for a schedule II opioid... Start Date: 02/09/22 Status: Ordered Zithromax 250 mg oral tablet 1 pack/packet, By Mouth, Once, # 6 tablet, 0 Refills, Soft Stop, 02/07/22 18:30:00 EDT, Tablet, [facility]/pharmacy #1230, Partial fill upon patient request [...] pack years: .5; entered on: 02/17/22 Sex Patient Care team information Personnel Name: Mike Kruse MD Address: Address: [address] [place] [address]
--- OUTSIDE RECORDS SUMMARY | 2022-09-19 20:58 | XMS_ITS | Continuity of Care Document ---
Author Name Unknown Organization [facility] Trevor lt Address [address] [place] [address]- Care Team Providers Care Brazing Machine Operator Name Role Phone Aixa BERNABE, Mike Bennett Primary Care Physician [facility] 07[facility]21 - 08/25/21 [facility] Adult [address] [place] [address]- Allergies, Adverse Reactions, Alerts Substance Reaction Severity [...] 11 Refills, Maintenance, 07/15/21 15:49:00 EDT, Solution, [facility], Partial fill upon patient request if [...] A DAY, # 16 Gm, 5 Refills, [facility], 30, USE 1 SPRAY IN EACH NOSTRIL TWICE A DAY, 180, cm, 05/03/21 9:32:00 EST, Height, 77, kg, 04/20/21 15:47:00 EST, Dry Weight Start Date: 05/10/21 Status: Ordered losartan 100 mg oral tablet 1 tablet, By Mouth, Daily, # 30 tablet, 5 Refills, Maintenance, 07/05/21 11:52:00 EDT, [facility], 180, cm, 06/27/21 12:02:00 EDT, Height, [...] OR CHEW, # 30 tablet, 5 Refills, [facility], 180, cm, 07/15/21 15:35:00 EDT, Height, [...] tablet, Refills 5, Route to Pharmacy Electronically, [facility], 174, cm, 03/22/21 13:58:00 EST, Height [...] 1 Refills, Maintenance, 05/10/21 10:26:00 EST, Tablet, [facility], 180, cm, 05/03/21 9:32:00 EST, Height, 77, kg, 04/20/21 15:47:00 EST, Dry Weight Start Date: 05/10/21 Status: Ordered ProAir HFA 90 mcg/inh inhalation aerosol with adapter 2, puffs, Inhalation, Every 6 hours, PRN, # 8.5 Gm, Refills 6, Route to Pharmacy Electronically, [id number]_[id number], [facility], 174, cm, 04/14/21 14:32:00 EST, Height Start Date: 04/18/21 Status: Ordered riboflavin 400 mg oral capsule 1 capsule = 400 mg, By Mouth, Daily, # 30 capsule, 5 Refills, Maintenance, 08/23/21 10:09:00 EDT, [facility], Partial fill upon patient request if the prescription is for a schedule II opioid drug., 180, cm, 08/23/21 9:21:00 EDT, Height, 77,... Start Date: 08/23/21 Status: Ordered Spiriva Respimat 1.25 mcg/inh inhalation aerosol 2 puffs, Inhalation, Daily, # 4 Gm, 5 Refills, [facility], 180, cm, 05/03/21 9:32:00 EST,Height, 77, kg, 04/20/21 15:47:00 EST, Dry Weight Start Date: 05/05/21 Status: Ordered Symbicort 160mcg/4.5mcg Inhaler 2, puffs, Inhalation, 2 times a day, # 10.2 Gm, Refills 10, Route to Pharmacy Electronically, NCPDP_[id number], [facility], 180, cm, 05/03/21 9:32:00 EST, Height, 77, kg, 04/20/21 15:47:00 EST, Dry Weight Start Date: 05/06/21 Status: Ordered tamsulosin 0.4 mg oral capsule 1, capsule, By Mouth, Daily, # 30 capsule, Refills 4, Tot. Refills 4, Maintenance, 08/25/21 14:22:00 EDT, Route to Pharmacy Electronically, [facility], 180, cm, 08/23/21 9:21:00 EDT, Height, 77, kg, 04/20/21 15:47:00 EST, Dry Weight Start Date: 08/25/21 Status: Ordered traZODone 50 mg oral tablet 100 mg, 2, tablet, By Mouth, Daily at bedtime, # 60 tablet, Refills 5, Tot. Refills 5, Maintenance,08/05/21 10:43:00 EDT, Route to Pharmacy Electronically, [facility], 180, cm, 08/02/21 15:00:00 EDT, Height, 77, kg, 04/20/21 15:47:00 EST, D... Start Date: 08/05/21 Status: Ordered venlafaxine 37.5 mg oral capsule, extended release 37.5 mg, 1, capsule, By Mouth, Daily, # 30 capsule, Refills 0, Tot. Refills 0, Maintenance, 06/27/21 13:03:00 EDT, Route to Pharmacy Electronically, [facility], Partial fill upon patient request if [...]
--- OUTSIDE RECORDS SUMMARY | 2022-09-19 20:58 | XMS_ITS | Continuity of Care Document ---
Author Name Unknown Organization [facility] Trevor lt Address [address] [place] [address]- Care Team Providers Care Double End Chucking Machine Operator Name Role Phone Mike Tristan MD Primary Care Physician [phone] Encounter [place] Date(s): 07/12/20 - 07/19/20 [facility] [place] Adult [address] [place] [address]- Encounter Diagnosis PVD (peripheral vascular disease)(Discharge Diagnosis) - 07/12/20 Cerebrovascular disease(Discharge Diagnosis) - 07/12/20 Attending Physician: Mike Tristan MD Allergies, Adverse [...] 05/05/20 13:45:00 EST, Route to Pharmacy Electronically, [facility], 174, cm, 03/01/20 11:26:00 EST, Height, 57, kg, 03/19/19 14:07:00 EST, Dry Weight Start Date: 05/05/20 Status: Ordered aspirin 81 mg oral tablet 1 tablet = 81 mg, By Mouth, Daily, PER DR TRISTAN, # 30 tablet, 5 Refills, Maintenance, 10/13/19 13:42:00 EDT, Tablet, [facility], 174, cm, 10/01/19 13:58:00 EDT, Height, [...] Gm, 11 Refills, Maintenance, 05/07/20 10:33:00 EST, [facility], 30, 1 puffs Inhalation 4 times [...] Maintenance, 04/27/2113:59:00 EST, Route to Pharmacy Electronically, [facility], 174, cm, 03/01/20 11:26:00 EST, Height, [...] tablet, 11 Refills, Maintenance, 07/12/20 14:44:00 EDT, [facility], 174, cm, 07/12/20 14:32:00 EDT, Height, 57, kg, 03/19/19 14:07:00 EST, Dry Weight Start Date: 07/12/20 Status: Ordered metoprolol 50 mg oral tablet, extended release 50 mg, 1, tablet, By Mouth, Daily, do not crush or chew, # 30 tablet, Refills 11, Tot. Refills 11, Maintenance, 07/12/20 14:44:00 EDT, Route to Pharmacy Electronically, [facility], 174, cm,07/12/20 14:32:00 EDT, Height, 57, kg, 03/19/19 14:... Start Date: 07/12/20 Status: Ordered Nasacort Allergy 24HR 55 mcg/inh nasal spray 2 sprays, Nares, Both, Daily, # 3 each, 0 Refills, Maintenance, 01/08/20 14:50:00 EDT, [facility], 2 sprays Nares, Both Daily, 174, cm, 01/08/20 14:29:00 EDT, Height, 57, kg, 03/19/19 14:07:00 EST, Dry Weight Start Date: 01/08/20 Status: Ordered nicotine 4 mg oral transmucosal lozenge 1 lozenge = 4 mg, By Mouth, Every hour, # 189 lozenge, 11 Refills, Maintenance, 07/12/20 14:49:00 EDT, [facility], 1 lozenge By Mouth Every hour, 174, cm, 07/12/20 14:32:00 EDT, Height, 57,kg, 03/19/19 14:07:00 EST, Dry Weight Start Date: 07/12/20 Status: Ordered omeprazole 20 mg oral enteric coated capsule 1 capsule, By Mouth, Daily, # 14 capsule, 0 Refills, Maintenance, 07/05/20 8:06:00 EDT, [facility], 174, cm, 06/22/20 14:37:00 EST, Height, 57, kg, 03/19/19 14:07:00 EST, Dry Weight Start Date: 07/05/20 Stop Date: 07/19/20 Status: Ordered pravastatin 40 mg oral tablet 1 tablet = 40 mg, By Mouth, Daily, # 90 tablet, 1 Refills, Maintenance, 03/23/20 10:59:00 EST, Tablet, [facility], 174, cm, 03/01/20 11:26:00 EST, Height, [...] 05/05/20 13:42:00 EST, Route to Pharmacy Electronically, [facility], 174, cm, 03/01/20 11:26:00 EST, Height, 57, kg, 12... Start Date: 05/05/20 Status: Ordered Spiriva Respimat 1.25 mcg/inh inhalation aerosol 2 puffs, Inhalation, Daily, # 4 Gm, 11 Refills, Maintenance, 05/25/20 13:51:00 EST, Aerosol, [facility], Partial fill upon patient request if the prescription is for a schedule II opioid drug., 174, cm, 05/07/20 10:13:00 EST, Height, 57, kg,... Start Date: 05/25/20 Status: Ordered Symbicort 160mcg/4.5mcg Inhaler 2, puffs, Inhalation, 2 times a day, # 1 each, Refills 11, Tot. Refills 11, Maintenance, 05/25/20 13:51:00 EST, Aerosol, Route to Pharmacy Electronically, [id number], [facility], 174,cm, 05/07/20 10:13:00 EST, Height, 57, kg, 03/19/19... Start Date: 05/25/20 Status: Ordered traZODone 50 mg oral tablet 100 mg, 2, tablet, By Mouth, Daily at bedtime, # 60 tablet, Refills 11, Tot. Refills 11, Maintenance, 07/12/20 14:43:00 EDT, Route to Pharmacy Electronically, [facility], 174, cm, 07/12/20 14:32:00 EDT, Height, 57, kg, 03/19/19 14:07:00 EST,... Start Date: 07/12/20 Status: Ordered Tylenol Extra Strength 500 mg oral tablet See Instructions, PRN for pain, 1 or 2 tablet By Mouth 3 times a day PER DR TRISTAN, # 100 tablet, 11 Refills, Maintenance, 06/08/20 10:22:00 EST, Tablet, [facility], 174, cm, 06/08/20 9:48:00 EST, Height, 57, kg, 03/19/19 14:07:00 EST, Dry Weight Start Date: 06/08/20 Status: Ordered ZyrTEC 10 mg oral tablet 1 tablet = 10 mg, By Mouth, Daily, # 30 tablet, 5 Refills, Maintenance, 03/08/20 8:02:00 EST, Tablet, [facility], 174, cm, 03/01/20 11:26:00 EST, Height, [...] Effective Dates Health Status Clinical Service Informant PVD (peripheral vascular disease) Discharge Diagnosis 07/12/20 Cerebrovascular disease Discharge Diagnosis 07/12/20 Vital Signs Most recent to oldest [Reference Range]: 1 Height 174 cm (07/12/20 2:32 PM) Weight 63.5 kg (07/12/20 2:32 PM) Oxygen Saturation [94-100 %] 96 % (3/29/21 2:32 PM) Pulse Rate [55-90 bpm] 83 bpm (07/12/20 2:32 PM) Body Mass Index [18.5-24.99] 20.97 (07/12/20 2:32 PM) Blood Pressure [90-138/55-84 mm Hg] 138/ 70mm Hg (07/12/20 2:32 PM) Temperature [96.8-100.4 DegF] 98.0 DegF (07/12/20 2:32 PM) Blood pressure sites Arm, left (07/12/20 2:32 PM) Social History Social History Type Response Smoking Status 5-9 cigarettes (betw een 1/4 to 1/2 pack)/day in last 30 days entered on: 05/26/19 Sex
--- OUTSIDE RECORDS SUMMARY | 2022-09-19 20:58 | XMS_ITS | Continuity of Care Document ---
Author Name Unknown Organization [facility] Address [address] [address]- Care Team Providers Care Armored Vehicle Officer Name Role Phone Mike Tristan MD Primary Care Physician [facility]): [facility] - 06/19/19 [facility] [address] [place] [address] [place] [address] Attending Physician: Eliza Gregg Admitting Physician: AdmEliza flores Referring Physician: AdmtrEliza Allergies, Adverse Reactions, Alerts [...] 02/10/19 13:40:35 EDT, Route to Pharmacy Electronically, [id number]_[id number], [facility] - [address] [place] [address] Start Date: 02/10/19 Stop Date: 06/10/19 Status: Ordered aspirin 81 mg oral tablet 1 tablet = 81 mg, By Mouth, Daily, PER DR TRISTAN, # 30 tablet, 5 Refills, Maintenance, 04/30/19 10:28:00 EST, Tablet, [facility], 174, cm, 03/19/19 14:40:00 EST, Height, 57, kg, 03/19/19 14:07:00 EST, Dry Weight Start Date: 04/30/19 Status: Ordered Combivent Respimat 20 mcg-100 mcg/inh inhalation aerosol 1 puffs, Inhalation, 4 times a day, PRN Wheezing/Shortness of Breath, # 1 each, 0 Refills, Maintenance, 06/12/19 8:06:00 EST, Aerosol, [facility], 1 puffs Inhalation 4 times a day,PRN:Wheezing/Shortness of Breath, 174, cm, 05/26/19 14:06:00... Start Date: 06/12/19 Status: Ordered doxycycline hyclate 100 mg oral capsule 1 capsule = 100 mg, By Mouth, 2 times a day, for 10 days, with fluids may take with food to minimize abdominal discomfort, # 20 capsule, 0 Refills, Acute 06/21/19 10:00:00 EST, 06/11/19 10:00:00 EST,Capsule, [facility], 174, cm, 05/26/19 1... Start Date: 06/11/19 Stop Date: 06/21/19 Status: Ordered ENSURE CHOCOLATE ENSURE CHOCOLATE, See Instructions, # 1 box, Refills 0, Tot. Refills 0, Maintenance, drink 2 ensuredaily dx code: r63.0 R63.4 , 08/31/17 9:38:21 EDT, Compound Start Date: 08/31/17 Status: Ordered Flomax 0.4 mg oral capsule 0.4 mg, 1, capsule, By Mouth, Daily, # 30 capsule, Refills 5, Tot. Refills 5, Maintenance, 01/05/208:38:00 EST, Route to Pharmacy Electronically, [facility], 174, cm, 03/19/19 14:40:00 EST, Height, [...] 04/30/19 10:39:00 EST, Route to Pharmacy Electronically, [facility], 174, cm, 03/19/19 14:40:00 EST, Height, [...] 04/20/19 8:38:00 EST, Route to Pharmacy Electronically, [facility],174, cm, 03/19/19 14:40:00 EST, Height, 57, [...] Maintenance,04/30/19 10:39:00 EST, Route to Pharmacy Electronically, [facility], 174, cm, 03/19/19 14:40:00 EST, Height, [...] 5 Refills, Maintenance, 04/20/19 8:38:00 EST, Tablet, [facility], 174, cm, 03/19/19 14:40:00 EST, Height, [...]
--- OUTSIDE RECORDS SUMMARY | 2022-09-19 20:58 | XMS_ITS | Continuity of Care Document ---
Author Name Unknown Organization [facility] Address [address] [place] [address]- Care Team Providers Care Rail Tractor Operator Name Role Phone Aixa BERNABE, Mike Bennett Primary Care Physician [phone] Encounter [facility] Date(s): 10/25/21 - 10/28/[address] [address]- Discharge Disposition: A-D/C Home Attending Physician: Kinza Guido MD Admitting Physician: Trevor Foy DO Referring Physician: Margi Rice MD Allergies, Adverse Reactions, Alerts Substance Reaction [...] 5 Refills, Maintenance, 10/28/21 14:18:00 EDT, Solution, [facility]/pharmacy #[id number], 165, cm, 10/28/21 4:51:00 EDT, Height, 60.5, kg, 10/26/21 13:16:00 EDT, Dry Weight Start Date: 10/28/21 Status: Ordered amLODIPine 5 mg oral tablet 5 mg, 1, tablet, By Mouth, Daily, # 90 tablet, Refills 1, Tot. Refills 1, Soft Stop, 10/19/21 9:10:00 EDT, Route to Pharmacy Electronically, [facility]/pharmacy #1230, 180, cm, 09/26/21 10:49:00 EDT, Height, 77, kg, 04/20/21 15:47:00 EST, Dry Weight Start Date: 10/19/21 Status: Ordered amLODIPine 5 mg oral tablet 5 mg, Tablet, By Mouth, 10/28/21 9:00:00 EDT Start Date: 10/28/21 Stop Date: 10/28/21 Status: Completed Aspirin Low Dose 81 mg [...] 11 Refills, Maintenance, 07/21/22 14:09:00 EDT, Capsule, [facility]/pharmacy #1230, Partial fill upon patient request if the prescription is for a schedule II opioid drug., 180, cm, 09/26/21 10:49:00... Start Date: 07/21/22 Stop Date: 07/16/23 Status: Ordered fluticasone 50 mcg/inh nasal spray See Instructions, USE 1 SPRAY IN EACH NOSTRIL TWICE A DAY, # 16 Gm, 5 Refills, 10/19/21 9:10:00 EDT, [facility]/pharmacy #1230, 30, USE 1 SPRAY IN EACH NOSTRIL TWICE A DAY, 180, cm, 09/26/21 10:49:00 EDT, Height, 77, kg, 04/20/21 15:47:00 EST, Dry Weight Start Date: 10/19/21 Status: Ordered guaiFENesin 100 mg/5 mL oral liquid 5 mL = 100 mg, By Mouth, Every 4 hours, PRN for cough, # 300 mL, 0 Refills, Maintenance, 10/12/21 17:43:00 EDT, Liquid, [facility]/pharmacy #1230, Partial fill upon patient request if the prescription is for a schedule II opioid drug., 180, cm, 09/26/21 10:4... Start Date: 10/12/21 Status: Ordered guaiFENesin 400 mg oral tablet 1 tablet = 400 mg, By Mouth, 4 times a day, # 120 tablet, 5 Refills, Maintenance, 10/28/21 14:19:00EDT, Tablet, [facility]/pharmacy #1230, 165, cm, 10/28/21 4:51:00 EDT, [...] oral tablet 100 mg, Tablet, By Mouth, 10/28/21 9:00:00 EDT Start Date: 10/28/21 Stop Date: 10/28/21 Status: Completed magnesium oxide 400 mg oral tablet 1 tablet, By Mouth, Daily, # 30 tablet, 6 Refills, Maintenance, 10/19/21 9:10:00 EDT, [facility]/pharmacy #1230, 180, cm, 09/26/21 10:49:00 EDT, Height, 77, kg, 04/20/21 15:47:00 EST, Dry Weight Start Date: 10/19/21 Stop Date: 10/19/21 Status: Ordered metoprolol 50 mg oral tablet, extended release 50 mg, XL Tablet, By Mouth, 10/28/21 9:00:00 EDT Start Date: 10/28/21 Stop Date: 10/28/21 Status: Completed Metoprolol Succinate ER 50 mg oral tablet, extended release 1 tablet, By Mouth, Daily, INSTR:DO NOT CRUSH OR CHEW, # 30 tablet, 5 Refills, 10/19/21 9:10:00 EDT, [facility]/pharmacy #1230, 180, cm, 09/26/21 10:49:00 EDT, Height, 77, kg, 04/20/21 15:47:00 EST, Dry Weight Start Date: 10/19/21 Status: Ordered MiraLax oral powder for reconstitution = 17 Gm, By Mouth, 2 times a day, dissolve in water before taking, # 527 Gm, 11 Refills, Maintenance, 10/19/21 9:10:00 EDT, REC Powder, [facility]/pharmacy #1230, Partial fill upon patient request if the prescription is for a schedule II opioid drug., 17 Gm... Start Date: 10/19/21 Status: Ordered montelukast 10 mg oral tablet 1, tablet, By Mouth, Daily at bedtime, # 30 tablet, Refills 5, Tot. Refills 5, 10/19/21 9:10:00 EDT, Route to Pharmacy Electronically, [facility]/pharmacy #1230, 180, cm, 09/26/21 10:49:00 EDT, Height, 77, kg, 04/20/21 15:47:00 EST, Dry Weight Start Date: 10/19/21 Status: Ordered omeprazole 20 mg oral delayed release tablet 1 tablet = 20 mg, By Mouth, Daily, # 30 tablet, 11 Refills, Maintenance, 03/27/23 15:48:00 EDT, CR Tablet, [facility]/pharmacy #1230, Partial fill upon patient request if the prescription is for a schedule II opioid drug., 180, cm, 09/26/21 10:49:00 EDT, Hei... Start Date: 07/10/22 Stop Date: 07/05/23 Status: Ordered pravastatin 40 mg oral tablet 1 tablet = 40 mg, By Mouth, Daily, # 90 tablet, 1 Refills, Maintenance, 10/19/21 9:10:00 EDT, Tablet, [facility]/pharmacy #1230, 180, cm, 09/26/21 10:49:00 EDT, Height, 77, kg, 04/20/21 15:47:00 EST, Dry Weight Start Date: 10/19/21 Status: Ordered predniSONE 20 mg oral tablet See Instructions, Take at 7-8 AM 2 tablet QD x 10 D, then 1 tab QD x 10 D, # 30 tablet, 0 Refills, Acute 11/17/21 12:00:00 EDT, 10/28/21 14:20:00 EDT, Tablet, [facility]/pharmacy #1230, 165, cm, 10/28/21 4:51:00 EDT, Height, 60.5, kg, 10/26/21 13:16:00 EDT,... Start Date: 10/28/21 Stop Date: 11/17/21 Status: Ordered ProAir HFA 90 mcg/inh inhalation aerosol with adapter 2, puffs, Inhalation, Every 6 hours, PRN, # 8.5 Gm, Refills 6, Tot. Refills 6, 10/19/21 9:10:00 EDT, Route to Pharmacy Electronically, [id number], [facility]/pharmacy #1230, 180, cm, 09/26/21 10:49:00 EDT, Height, 77, kg, 04/20/21 1... Start Date: 10/19/21 Status: Ordered riboflavin 400 mg oral capsule 1 capsule = 400 mg, By Mouth, Daily, # 30 capsule, 5 Refills, Maintenance, 10/19/21 9:10:00 EDT, [facility]/pharmacy #1230, Partial fill upon patient request if the prescription is for a schedule II opioid drug., 180, cm, 09/26/21 10:49:00 EDT, Height, 77, k... Start Date: 10/19/21 Status: Ordered SEROquel 25 mg oral tablet 25 mg, 1, tablet, By Mouth, Daily at bedtime, # 30 tablet, Refills 5, Tot. Refills 5, Maintenance, 10/28/21 14:23:00 EDT, Route to Pharmacy Electronically, [facility]/pharmacy #1230, 165, cm, 10/28/21 4:51:00 EDT, Height, 60.5, kg, 10/26/21 13:16:00 EDT, Dry... Start Date: 10/28/21 Status: Ordered Spiriva Respimat 1.25 mcg/inh inhalation aerosol 2 puffs, Inhalation, Daily, # 4 Gm, 5 Refills, 10/19/21 9:10:00 EDT, [facility]/pharmacy #1230, 180, cm, 09/26/21 10:49:00 EDT, Height, 77, kg, 04/20/21 15:47:00 EST, Dry Weight Start Date: 10/19/21 Status: Ordered Symbicort 160mcg/4.5mcg Inhaler 2, puffs, Inhalation, 2 times a day, # 10.2 Gm, Refills 10, Tot. Refills 10, 10/19/21 9:10:00 EDT, Route to Pharmacy Electronically, [id number], [facility]/pharmacy #1230, 180, cm,09/26/21 10:49:00 EDT, Height, 77, kg, 04/20/21 15:... Start Date: 10/19/21 Status: Ordered tamsulosin 0.4 mg oral capsule 1, capsule, By Mouth, Daily, # 30 capsule, Refills 4, Tot. Refills 4, Maintenance, 10/19/21 9:10:00EDT, Route to Pharmacy Electronically, [facility]/pharmacy #1230, 180, cm, 09/26/21 10:49:00 EDT, Height, 77, kg, 04/20/21 15:47:00 EST, Dry Weight Start Date: 10/19/21 Status: Ordered venlafaxine 37.5 mg oral capsule, extended release 37.5 mg, 1, capsule, By Mouth, Daily, # 30 capsule, Refills 1, Tot. Refills 1, Maintenance, 10/19/21 9:10:00 EDT, Route to Pharmacy Electronically, [facility]/pharmacy #1230, Partial fill upon patient request [...] Exam Date Time Procedure Performing Provider Status 10/25/21 4:00 PM Chest 2 Views Frontal and Lat Tylor Tilley (Verified) Notes: (Chest 2 Views Frontal and Lat) Reason For Exam: Chest Pain;Other: RESULT: Chest 2 Views Frontal and Lat Chest 2 Views Frontal and Lat Hx of Present Illness: Chest pain. COPD. COMPARISON: 09/06/2021 FINDINGS: LINES AND TUBES: None. LUNGS AND PLEURA: Large lung volumes. Otherwise, lungs are clear. No pleural effusion. No pneumothorax. HEART, MEDIASTINUM AND GRETEL: Heart is normal in size. Normal upper mediastinal and hilar contour. BONES AND SOFT TISSUES: No acute abnormality. IMPRESSION: COPD. No superimposed acute process. WSN: [id number] Ordering Physician: Iraj Saab Dictated By: Roel Thakkar MD Dictated Date/Time: 10/25/21 4:31 pm Reviewed By: Roel Thakkar MD Signed By: Roel Thakkar MD Signed Date/Time: 10/25/21 4:31 pm Transcribed By: JAX Transcribed Date/Time: 10/25/21 4:30 pm Vital Signs Most recent to oldest [Reference Range]: 1 2 3 Height 165 cm (10/28/21 4:51 AM) 165 cm (10/26/21 9:01 PM) 165 cm (10/26/21 1:06 PM) Weight 60.5 kg (10/26/21 1:06 PM) 61.0 kg (10/25/21 3:40 PM) 61.0 kg (10/25/21 3:38 PM) Oxygen Saturation [94-100 %] 96 % (10/28/21 8:00 AM) 94 % (10/28/21 4:51 AM) 94 % (10/27/21 7:00 PM) Pulse Rate [55-90 bpm] 61 bpm (10/28/21 9:00 AM) 61 bpm (10/28/21 8:00 AM) 57 bpm (10/28/21 4:51 AM) Body Mass Index [18.5-24.99] 22.22 (10/26/21 1:06 PM) 22.41 (10/25/21 3:38 PM) Blood Pressure [90-138/55-84 mm Hg] 148/84mm Hg *H* (10/28/21 9:00 AM) 148/84mm Hg *H* (10/28/21 9:00 AM) 148/84mm Hg *H* (10/28/21 9:00 AM) Respiratory Rate [16-30 br/min] 20 br/min (10/28/21 8:00 AM) 18 br/min (10/27/21 7:00 PM) 18 br/min (10/27/21 5:00 PM) Temperature [96.8-100.4 DegF] 97.5 DegF (10/28/21 8:00 AM) 97.9 DegF (10/28/21 4:51 AM) 98.0 DegF (10/27/21 7:00 PM) Liters per Minute 0 L/min (10/26/21 9:18 AM) Mode of Delivery (Oxygen) Room air (10/28/21 8:00 AM) Room air (10/28/21 4:51 AM) Room air (10/27/21 7:00 PM) Blood pressure sites Arm, right (10/28/21 8:00 AM) Arm, right (10/28/21 4:51 AM) Arm, right (10/27/21 7:00 PM) Temperature Route Oral (10/28/21 8:00 AM) Oral (10/28/21 4:51 AM) Oral (10/27/21 7:00 PM) Dry Weight 60.5 kg (10/26/21 1:06 PM) 60.5 kg (10/26/21 1:00 PM) 61.0 kg (10/25/21 3:40 PM) Weight Obtained Via Standing scale (10/25/21 3:38 PM) Dry Weight Obtained Via Standing scale (10/25/21 3:38 PM) Social History Social History Type Response Smoking Status Former smoker, quit more than 30 days ago entered on: 09/26/21 Sex
--- OUTSIDE RECORDS SUMMARY | 2022-09-19 20:58 | XMS_ITS | Continuity of Care Document ---
Author Name Unknown Organization [facility] Address [address] [place] [address] ve [address] [place] [address]- Care Team Providers Care Game Room Attendant Name Role Phone Mike Kruse MD Primary Care Physician [phone] Encounter [facility] Date(s): 03/15/22 - 04/27/[address] [place] [address]- Attending Physician: Anoop Hall MD Allergies, Adverse Reactions, Alerts Substance Reaction Severity Status lisinopril Atenolol Trisha norvegensis Active cloNIDine Active Immunizations Given and Recorded Vaccine Date Status Refusal Reason [id number] 12y+ bivalent booster vax 1 01/20/22 Given [...] tetanus/diphtheria/pertussis, acel(Tdap) 04/01/09 Recorded 1Result Comment: [facility] [id number] 2Location History: [facility] 3Result Comment: [11/22/2016] [facility] 4Result Comment: [03/20/2016] [facility] Medications acetaminophen 325 mg oral tablet 650 mg, 2, tablet, By Mouth, Every 4 hours, PRN, # 30 tablet, Refills 0, Tot. Refills 0, Maintenance, Pain , Mild, 02/21/22 15:17:00 EST, Route to Pharmacy Electronically, [facility], Partial fill upon patient request if the prescription... Start Date: 02/21/22 Status: Ordered amLODIPine 5 mg oral tablet 1 tablet, By Mouth, Daily, # 90 tablet, 1 Refills, Maintenance, 02/09/22 12:58:00 EDT, [id number], 163, cm, 02/07/22 18:18:00 EDT, Height, 60, kg, 02/07/22 15:54:00 EDT, Dry Weight Start Date: 02/09/22 Status: Ordered Aspirin Low Dose 81 mg oral delayed release tablet 1 tablet, By Mouth, Daily, # 30 tablet, 11 Refills, 10/19/21 9:10:00 EDT, [facility]/pharmacy #1230, 180, cm, 09/26/21 10:49:00 [...] 11 Refills, Maintenance, 04/25/22 10:31:00 EST, Tablet, [facility]/pharmacy #[id number], Partial fill upon patient request if the prescription is for a schedule II opioid drug., 163, cm, 03/30/22 10:35:00 EST, Height, 60, kg,... Start Date: 04/25/22 Status: Ordered fluticasone 50 mcg/inh nasal spray See Instructions, SPRAY 1 SPRAY INTO EACH NOSTRIL TWICE A DAY, # 48 mL, 1 Refills, Maintenance, 04/25/22 18:01:00 EST, [facility]/pharmacy #0373, 90, SPRAY 1 SPRAY INTO EACH NOSTRIL TWICE A DAY, 163, cm, 03/30/22 10:35:00 EST, Height, 60, kg, 02/07/22 15:54:... Start Date: 04/25/22 Status: Ordered guaiFENesin 400 mg oral tablet 1 tablet = 400 mg, By Mouth, 4 times a day, # 120 tablet, 5 Refills, Maintenance, 10/28/21 14:19:00EDT, Tablet, [facility]/pharmacy #1230, 165, cm, 10/28/21 4:51:00 [...] tablet, 3 Refills, Maintenance, 04/26/22 9:42:00 EST, [id number], 163, cm, 03/30/22 10:35:00 EST, Height, 60, kg, 02/07/22 15:54:00 EDT, Dry Weight Start Date: 04/26/22 Status: Ordered magnesium oxide 400 mg oral tablet 1 tablet, By Mouth, Daily, # 30 tablet, 6 Refills, Maintenance, 10/19/21 9:10:00 EDT, [facility]/pharmacy #1230, 180, cm, 09/26/21 10:49:00 EDT, Height, 77, kg, 04/20/21 15:47:00 EST, Dry Weight Start Date: 10/19/21 Stop Date: 10/19/21 Status: Ordered Metoprolol Succinate ER 50 mg oral tablet, extended release See Instructions, 1 TABLET BY MOUTH DAILY,INSTR:INSTR:DO NOT CRUSH OR CHEW, # 90 tablet, 1 Refills,Maintenance, 04/25/22 18:03:00 EST, [facility]/pharmacy #0373, 163, cm, 03/30/22 10:35:00 EST, Height, 60,kg, 02/07/22 15:54:00 EDT, Dry Weight Start Date: 04/25/22 Status: Ordered MiraLax oral powder for reconstitution = 17 Gm, By Mouth, 2 times a day, dissolve in water before taking, # 527 Gm, 11 Refills, Maintenance, 10/19/21 9:10:00 EDT, REC Powder, [facility]/pharmacy #1230, Partial fill upon patient request if the prescription is for a schedule II opioid drug., 17 Gm... Start Date: 10/19/21 Status: Ordered montelukast 10 mg oral tablet See Instructions, TAKE 1 TABLET BY MOUTH EVERY DAY AT BEDTIME, # 30 tablet, Refills 11, Tot. Refills 11, Maintenance, 01/20/22 14:03:00 EDT, Instructions Replace Required Details, Route to Pharmacy Electronically, [facility]/pharmacy #1230, 162, cm, 01/20/22... Start Date: 01/20/22 Status: Ordered Neurontin 100 mg oral capsule 100 mg, 1, capsule, By Mouth, 3 times a day, # 90 capsule, Refills 2, Tot. Refills 2, Maintenance, 03/15/22 15:34:00 EST, Route to Pharmacy Electronically, [facility]/pharmacy #[id number], Partial fill upon patient request if the prescription is for a schedule II... Start Date: 03/15/22 Status: Ordered omeprazole 20 mg oral delayed release tablet 1 tablet = 20 mg, By Mouth, Daily, # 30 tablet, 11 Refills, Maintenance, 07/10/22 15:48:00 EDT, CR Tablet, [facility]/pharmacy #1230, Partial fill upon patient [...] 02/21/22 15:17:00 EST, Route to Pharmacy Electronically, [facility], Partial fill upon patient [...] 11/18/21 16:53:00 EDT, Route to Pharmacy Electronically, [facility]/pharmacy #1230, Partial fill upon patient request if the prescription is for a schedule II opioid drug... Start Date: 11/18/21 Status: Ordered pravastatin 40 mg oral tablet See Instructions, TAKE 1 TABLET BY MOUTH EVERY DAY, # 30 tablet, 5 Refills, Maintenance, 12/19/21 15:29:00 EDT, [facility], 162, cm, 12/16/21 14:39:00 EDT, Height, 59.5, kg, 12/16/21 0:28:00 EDT, Dry Weight Start Date: 12/19/21 Status: Ordered riboflavin 400 mg oral capsule 1 capsule = 400 mg, By Mouth, Daily, # 30 capsule, 5 Refills, Maintenance, 10/19/21 9:10:00 EDT, [facility]/pharmacy #1230, Partial fill upon patient request if the prescription is for a schedule II opioid drug., 180, cm, 09/26/21 10:49:00 EDT, Height, 77, k... Start Date: 10/19/21 Status: Ordered SEROquel 25 mg oral tablet 25 mg, 1, tablet, By Mouth, Daily at bedtime, # 30 tablet, Refills 5, Tot. Refills 5, Maintenance, 10/28/21 14:23:00 EDT, [facility], cm, 10/28/21 4:51:00 EDT, Height, 60.5, kg, 10/26/21 13:16:00 EDT, Dry... Start Date: 10/28/21 Status: Ordered Spiriva Respimat 1.25 mcg/inh inhalation aerosol 2 puffs, Inhalation, Daily, # 4 Gm, 5 Refills, 10/19/21 9:10:00 EDT, [facility]/pharmacy #1230, 180, cm, 09/26/21 10:49:00 EDT, Height, 77, kg, 04/20/21 15:47:00 EST, Dry Weight Start Date: 10/19/21 Status: Ordered Symbicort 160mcg/4.5mcg Inhaler 2, puffs, Inhalation, 2 times a day, # 10.2 Gm, Refills 10, Tot. Refills 10, 10/19/21 9:10:00 EDT, Route to Pharmacy Electronically, [id number], [facility] 180, cm,09/26/21 10:49:00 EDT, Height, 77, kg, 04/20/21 15:... Start Date: 10/19/21 Status: Ordered tamsulosin 0.4 mg oral capsule 1, capsule, By Mouth, Daily, # 30 capsule, Refills 11, Tot. Refills 11, Maintenance, 04/25/22 9:53:00 EST, [id number] 163, cm, 03/30/22 10:35:00 EST, Height, 60, kg, 02/07/22 15:54:00 EDT, Dry Weight Start Date: 04/25/22 Status: Ordered venlafaxine 37.5 mg oral capsule, extended release See Instructions, TAKE 1 CAPSULE BY MOUTH EVERY DAY, # 30 capsule, 1 Refills, Maintenance, 03/31/2211:53:00 EST, [id number], 163, cm, 03/30/22 10:35:00 EST, Height, 60, kg, 02/07/22 15:54:00 EDT, Dry Weight Start Date: 03/31/22 Status: Ordered Ventolin HFA 108 mcg/inh inhalation aerosol with adapter 2 puffs, Inhalation, Every 4 hours, PRN NEEDED FOR WHEEZING, # 18 each, 11 Refills, Maintenance,04/26/22 9:42:00 EST, [id number], 163, cm, 03/30/22 10:35:00 EST, Height, 60, [...] shoulder Confirmed Active Tobacco abuse Confirmed Active olo 2016 2IMPRESSION: 1. Severe emphysema. No evidence [...] Team Personnel Name: Ana West RN Position: [facility] RN Member Role: Primary Care Nurse Name: Odalys Orozco RN Position: S RN Member Role: Primary Care Nurse Name: Mike Kruse MD Position: [facility] Primary Care Physician Member Role: PCP Address: Address: [address] [place] [address]- Name: Maryam Valenzuela RN Position: S RN Member Role: Primary Care Nurse Name: Deandre Lara LPN Position: [facility] RN Member Role: Primary Care Nurse Name: Hayden Queen RN Position: S RN Member Role: Primary Care Nurse Name: Aruna Winkler RN Position: [facility] RN Member Role: Primary Care Nurse Name: Sabrina Hare RN Position: [facility] RN Member Role: Primary Care Nurse Name: Kristyn Olivo RN Position: [facility] RN Member Role: Primary Care Nurse Name: Marguerite Florentino RN Position: [facility] RN Member Role: Primary Care Nurse Care Team Related Persons Name: CHARLES ENA Address: [address] [place] [address] Name: ELISA TOMPKINS Address: [place] [address] Name: JOSE RAFAEL LI
--- OUTSIDE RECORDS SUMMARY | 2022-09-19 20:58 | XMS_ITS | Continuity of Care Document ---
Author Name Unknown Organization [facility] Trevor lt Address [address] [place] [address]- Care Team Providers Care Rcp Name Role Phone Aixa BERNABE, Mike Bennett Primary Care Physician [facility] - 03/05/21 [facility] Adult [address] [place] [address]- Allergies, Adverse Reactions, Alerts Substance Reaction Severity [...] 01/10/21 16:35:00 EDT, Route to Pharmacy Electronically, [facility], 174, cm, 12/30/20 14:45:00 EDT, Height, 57, kg, 03/19/19 14:07:00 EST, Dry Weight Start Date: 01/10/21 Status: Ordered Aspirin Low Dose 81 mg oral delayed release tablet 1 tablet, By Mouth, Daily, # 30 tablet, 2 Refills, [facility], 174, cm, 01/14/21 15:08:00EDT, Height, 57, kg, 03/19/19 14:07:00 EST, Dry Weight Start Date: 01/25/21 Status: Ordered Combivent Respimat 20 mcg-100 mcg/inh inhalation aerosol 1 puffs, Inhalation, 4 times a day, PRN NEEDED FOR WHEEZING OR SHORTNESS OF BREATH, # 4 Gm, 11 Refills, Maintenance, 05/07/20 10:33:00 EST, [facility], 30, 1 puffs Inhalation 4 times [...] 16 Gm, 2 Refills, 08/24/20 15:55:00 EDT, [facility], 30, INSTILL 1 SPRAY INTO EACH [...] 1 Refills, Maintenance, 11/30/20 11:11:00 EDT, Capsule, [facility], Partial fill upon patient request if the prescription is for a scheduleII opioid drug., 174, cm, 11/30/20 10:34:00 EDT, He... Start Date: 11/30/20 Status: Ordered losartan 100 mg oral tablet 1 tablet, By Mouth, Daily, # 30 tablet, 11 Refills, Maintenance, 07/12/20 14:44:00 [facility], 174, cm, 07/12/20 14:32:00 EDT, Height, 57, kg, 03/19/19 14:07:00 EST, Dry Weight Start Date: 07/12/20 Status: Ordered metoprolol 50 mg oral tablet, extended release 50 mg, 1, tablet, By Mouth, Daily, do not crush or chew, # 30 tablet, Refills 11, Tot. Refills 11, Maintenance, 07/12/20 14:44:00 EDT, Route to Pharmacy Electronically, [facility], 174, cm,07/12/20 14:32:00 EDT, Height, 57, kg, 03/19/19 14:... Start Date: 07/12/20 Status: Ordered montelukast 10 mg oral tablet 1, tablet, By Mouth, Daily at bedtime, # 30 tablet, Refills 4, Tot. Refills 0, Maintenance, 10/20/20 11:07:00 EDT, Route to Pharmacy Electronically, [facility], 174, cm, 09/14/20 14:37:00 EDT, Height, 57, kg, 03/19/19 14:07:00 EST, Dry Weight Start Date: 10/20/20 Status: Ordered Nasacort Allergy 24HR 55 mcg/inh nasal spray 2 sprays, Nares, Both, Daily, # 3 each, 0 Refills, Maintenance, 01/08/20 14:50:00 EDT, [facility], 2 sprays Nares, Both Daily, 174, cm, 01/08/20 14:29:00 EDT, Height, 57, kg, 03/19/19 14:07:00 EST, Dry Weight Start Date: 01/08/20 Status: Ordered nicotine 4 mg oral transmucosal lozenge 1 lozenge = 4 mg, By Mouth, Every hour, # 189 lozenge, 11 Refills, Maintenance, 07/12/20 14:49:00 EDT, [facility], 1 lozenge By Mouth Every hour, 174, cm, 07/12/20 14:32:00 EDT, Height, 57,kg, 03/19/19 14:07:00 EST, Dry Weight Start Date: 07/12/20 Status: Ordered omeprazole 20 mg oral enteric coated capsule 1 capsule, By Mouth, Daily, # 14 capsule, 0 Refills, Maintenance, 07/05/20 8:06:00 EDT, [facility], 174, cm, 06/22/20 14:37:00 EST, Height, 57, kg, 03/19/19 14:07:00 EST, Dry Weight Start Date: 07/05/20 Stop Date: 07/19/20 Status: Ordered pravastatin 40 mg oral tablet 1 tablet = 40 mg, By Mouth, Daily, # 90 tablet, 1 Refills, Maintenance, 08/24/20 15:56:00 EDT, Tablet, [facility], 174, cm, 08/17/20 13:45:00 EDT, Height, 57, kg, 03/19/19 14:07:00 EST, DryWeight Start Date: 08/24/20 Status: Ordered Remeron 15 mg oral tablet 1 tablet = 15 mg, By Mouth, Daily at bedtime, REPLACES ZOLOFT, # 30 tablet, 1 Refills, Maintenance,06/22/20 15:13:00 EST, Tablet, [facility], Partial fill upon patient request if the prescription is for a schedule II opioid drug., 174, cm,... Start Date: 06/22/20 Status: Ordered Spiriva Respimat 1.25 mcg/inh inhalation aerosol 2 puffs, Inhalation, Daily, # 4 Gm, 11 Refills, Maintenance, 05/25/20 13:51:00 EST, Aerosol, [facility], Partial fill upon patient request if the prescription is for a schedule II opioid drug., 174, cm, 05/07/20 10:13:00 EST, Height, 57, kg,... Start Date: 05/25/20 Status: Ordered Symbicort 160mcg/4.5mcg Inhaler 2, puffs, Inhalation, 2 times a day, # 1 each, Refills 11, Tot. Refills 11, Maintenance, 05/25/20 13:51:00 EST, Aerosol, Route to Pharmacy Electronically, [id number], [facility], 174,cm, 05/07/20 10:13:00 EST, Height, 57, kg, 03/19/19... Start Date: 05/25/20 Status: Ordered tamsulosin 0.4 mg oral capsule 1, capsule, By Mouth, Daily, # 30 capsule, Refills 4, Tot. Refills 0, Maintenance, 10/20/20 11:06:00 EDT, Route to Pharmacy Electronically, [facility], 174, cm, 09/14/20 14:37:00 EDT, Height, 57, kg, 03/19/19 14:07:00 EST, Dry Weight Start Date: 10/20/20 Status: Ordered traZODone 50 mg oral tablet 100 mg, 2, tablet, By Mouth, Daily at bedtime, # 60 tablet, Refills 11, Tot. Refills 11, Maintenance, 07/12/20 14:43:00 EDT, Route to Pharmacy Electronically, [facility], 174, cm, 07/12/20 14:32:00 EDT, Height, 57, kg, 03/19/19 14:07:00 EST,... Start Date: 07/12/20 Status: Ordered Tylenol Extra Strength 500 mg oral tablet See Instructions, PRN for pain, 1 or 2 tablet By Mouth 3 times a day PER DR TRISTAN, # 100 tablet, 11 Refills, Maintenance, 06/08/20 10:22:00 EST, Tablet, [facility], 174, cm, 06/08/20 9:48:00 EST, Height, [...]
--- OUTSIDE RECORDS SUMMARY | 2022-09-19 20:59 | XMS_ITS | Continuity of Care Document ---
Author Name Unknown Organization [facility] Trevor lt Address [address] [place] [address]- Care Team Providers Care Welder Setter Electron Beam Machine Name Role Phone Mike Tristan MD Primary Care Physician [facility]20 - 06/23/20 [facility] Adult [address] [place] [address]- Allergies, Adverse Reactions, Alerts Substance Reaction Severity [...] 13:45:00 EST, Route to Pharmacy Electronically, [facility], 174, cm, 03/01/20 11:26:00 EST, Height, 57, kg, 03/19/19 14:07:00 EST, Dry Weight Start Date: 05/05/20 Status: Ordered aspirin 81 mg oral tablet 1 tablet = 81 mg, By Mouth, Daily, PER DR TRISTAN, # 30 tablet, 5 Refills, Maintenance, 10/13/19 13:42:00 EDT, Tablet, [facility], 174, cm, 10/01/19 13:58:00 EDT, Height, [...] Gm, 11 Refills, Maintenance, 05/07/20 10:33:00 EST, [facility], 30, 1 puffs Inhalation 4 times [...] Maintenance, 04/27/2113:59:00 EST, Route to Pharmacy Electronically, [facility], 174, cm, 03/01/20 11:26:00 EST, Height, 57, kg, 03/19/19 14:07:00 EST, Dry Weight Start Date: 04/27/20 Status: Ordered fluticasone 50 mcg/inh nasal spray See Instructions, INSTILL 1 SPRAY INTO EACH NOSTRIL TWICE DAILY, # 16 Gm, 2 Refills, Maintenance, [facility], 30, INSTILL 1 SPRAY INTO EACH [...] tablet, 0 Refills, Maintenance, 05/06/20 8:04:00 EST, [facility], 174, cm, 03/01/20 11:26:00 EST, Height, 57, kg, 03/19/19 14:07:00 EST, Dry Weight Start Date: 05/06/20 Status: Ordered metoprolol 50 mg oral tablet, extended release 50 mg, 1, tablet, By Mouth, Daily, do not crush or chew, # 30 tablet, Refills 2, Tot. Refills 2, Maintenance, 10/14/19 8:46:00 EDT, Route to Pharmacy Electronically, [facility], 174, cm, 10/01/19 13:58:00 EDT, Height, 57, kg, 03/19/19 14:07:... Start Date: 10/14/19 Status: Ordered Nasacort Allergy 24HR 55 mcg/inh nasal spray 2 sprays, Nares, Both, Daily, # 3 each, 0 Refills, Maintenance, 01/08/20 14:50:00 EDT, [facility], 2 sprays Nares, Both Daily, 174, [...] 1 Refills, Maintenance, 03/23/20 10:59:00 EST, Tablet, [facility], 174, cm, 03/01/20 11:26:00 EST, Height, 57, kg, 03/19/19 14:07:00 EST, DryWeight Start Date: 03/23/20 Status: Ordered PriLOSEC OTC 20 mg oral delayed release tablet 1 tablet = 20 mg, By Mouth, Daily, # 14 tablet, 0 Refills, Maintenance, 06/08/20 10:27:00 EST, EC Tablet, [facility], Partial fill upon patient request if the prescription is for a scheduleII opioid drug., 174, cm, 06/08/20 9:48:00 EST, Hei... Start Date: 06/08/20 Stop Date: 06/22/20 Status: Ordered Remeron 15 mg oral tablet 1 tablet = 15 mg, By Mouth, Daily at bedtime, REPLACES ZOLOFT, # 30 tablet, 1 Refills, Maintenance,06/22/20 15:13:00 EST, Tablet, [facility], Partial fill upon patient request if the prescription is for a schedule II opioid drug., 174, cm,... Start Date: 06/22/20 Status: Ordered Singulair 10 mg oral tablet 10 mg, 1, tablet, By Mouth, Daily at bedtime, PER ARPIT DUNN, # 30 tablet, Refills 5, Tot. Refills 5, Maintenance, 05/05/20 13:42:00 EST, Route to Pharmacy Electronically, [facility], 174, cm, 03/01/20 11:26:00 EST, Height, [...] 13:51:00 EST, Aerosol, Route to Pharmacy Electronically, [id number], [facility], 174,cm, 05/07/20 10:13:00 EST, Height, 57, kg, 03/19/19... Start Date: 05/25/20 Status: Ordered traZODone 50 mg oral tablet 100 mg, 2, tablet, By Mouth, Daily at bedtime, # 60 tablet, Refills 5, Tot. Refills 5, Maintenance,03/08/20 9:08:00 EST, Route to Pharmacy Electronically, [facility], 174, cm, 03/01/20 11:26:00 EST, Height, 57, kg, 03/19/19 14:07:00 EST, .. Start Date: 03/08/20 Status: Ordered Tylenol Extra Strength 500 mg oral tablet See Instructions, PRN for pain, 1 or 2 tablet By Mouth 3 times a day PER DR TRISTAN, # 100 tablet, 11 Refills, Maintenance, 06/08/20 10:22:00 EST, Tablet, [facility], 174, cm, 06/08/20 9:48:00 EST, Height, 57, kg, 03/19/19 14:07:00 EST, Dry Weight Start Date: 06/08/20 Status: Ordered ZyrTEC 10 mg oral tablet 1 tablet = 10 mg, By Mouth, Daily, # 30 tablet, 5 Refills, Maintenance, 03/08/20 8:02:00 EST, Tablet, [facility], 174, cm, 03/01/20 11:26:00 [...]
--- OUTSIDE RECORDS SUMMARY | 2022-09-19 20:59 | XMS_ITS | Continuity of Care Document ---
Author Name Unknown Organization [facility] Trevor Address [address] [place] [address]- Care Team Providers Care Blemish Remover Name Role Phone Mike Kruse MD Primary Care Physician [phone] [facility]): 02[facility]22 - 03/25/22 [facility] Adult [address] [place] [address]- Allergies, Adverse Reactions, Alerts Substance Reaction Severity Status lisinopril Atenolol Trisha norvegensis Active cloNIDine Active Immunizations Given and Recorded Vaccine Date Status Refusal Reason [id number] 12y+ bivalent booster vax 1 01/20/22 Given [...] 04/01/09 Recorded 1Result Comment: [facility] [id number] 2Location History: [facility] 3Result Comment: [11/22/2016] [facility] 4Result Comment: [03/20/2016] [facility] Medications acetaminophen 325 mg oral tablet 650 mg, 2, tablet, By Mouth, Every 4 hours, PRN, # 30 tablet, Refills 0, Tot. Refills 0, Maintenance, Pain , Mild, 02/21/22 15:17:00 EST, Route to Pharmacy Electronically, [facility], Partial fill upon patient request if the prescription... Start Date: 02/21/22 Status: Ordered albuterol 0.083% inhalation solution 3 mL = 2.5 mg, Inhalation, Every 6 hours, PRN for wheezing, # 60 each, 5 Refills, Maintenance, 10/28/21 14:18:00 EDT, Solution, [facility] #[id number], 165, cm, 10/28/21 4:51:00 EDT, Height, 60.5, kg, 10/26/21 13:16:00 EDT, Dry Weight Start Date: 10/28/21 Status: Ordered amLODIPine 5 mg oral tablet 1 tablet, By Mouth, Daily, # 90 tablet, 1 Refills, Maintenance, 02/09/22 12:58:00 EDT, [id number], 163, cm, 02/07/22 18:18:00 EDT, Height, 60, kg, 02/07/22 15:54:00 EDT, Dry Weight Start Date: 02/09/22 Status: Ordered Aspirin Low Dose 81 mg oral delayed release tablet 1 tablet, By Mouth, Daily, # 30 tablet, 11 Refills, 10/19/21 9:10:00 EDT, [facility] #[id number], 180, cm, 09/26/21 10:49:00 EDT, [...] each, 5 Refills, Maintenance, 12/19/21 15:27:00 EDT, [facility], 30, USE 1 SPRAY IN EACH NOSTRIL TWICE A DAY, 162, cm, 12/16/21 14:39:00 EDT, Height, 59.5, kg, 12/16/21 0:28:00... Start Date: 12/19/21 Status: Ordered guaiFENesin 400 mg oral tablet 1 tablet = 400 mg, By Mouth, 4 times a day, # 120 tablet, 5 Refills, Maintenance, 10/28/21 14:19:00EDT, Tablet, [facility] #1230, 165, cm, 10/28/21 4:51:00 EDT, [...] tablet, 4 Refills, Maintenance, 12/23/21 13:25:00 EDT, [facility], 162, cm, 12/16/21 14:39:00 EDT, Height, 59.5, kg, 12/16/21 0:28:00 EDT, Dry Weight Start Date: 12/23/21 Status: Ordered magnesium oxide 400 mg oral tablet 1 tablet, By Mouth, Daily, # 30 tablet, 6 Refills, Maintenance, 10/19/21 9:10:00 EDT, [facility] #1230, 180, cm, 09/26/21 10:49:00 EDT, Height, 77, kg, 04/20/21 15:47:00 EST, Dry Weight Start Date: 10/19/21 Stop Date: 10/19/21 Status: Ordered Metoprolol Succinate ER 50 mg oral tablet, extended release 1 tablet, By Mouth, Daily, INSTR:DO NOT CRUSH OR CHEW, # 30 tablet, 5 Refills, 10/19/21 9:10:00 EDT, [facility], 180, cm, 09/26/21 10:49:00 EDT, Height, 77, kg, 04/20/21 15:47:00 EST, Dry Weight Start Date: 10/19/21 Status: Ordered MiraLax oral powder for reconstitution = 17 Gm, By Mouth, 2 times a day, dissolve in water before taking, # 527 Gm, 11 Refills, Maintenance, 10/19/21 9:10:00 EDT, REC Powder, [facility]/pharmacy #1230, Partial fill upon patient request if the prescription is for a schedule II opioid drug., 17 Gm... Start Date: 10/19/21 Status: Ordered montelukast 10 mg oral tablet See Instructions, TAKE 1 TABLET BY MOUTH EVERY DAY AT BEDTIME, # 30 tablet, Refills 11, Tot. Refills 11, Maintenance, 01/20/22 14:03:00 EDT, Instructions Replace Required Details, Route to Pharmacy Electronically, [facility] #1230, 162, cm, 01/20/22... Start Date: 01/20/22 Status: Ordered Neurontin 100 mg oral capsule 100 mg, 1, capsule, By Mouth, 3 times a day, # 90 capsule, Refills 2, Tot. Refills 2, Maintenance, 03/15/22 15:34:00 EST, Route to Pharmacy Electronically, [facility]/pharmacy #[id number], Partial fill upon patient request if the prescription is for a schedule II... Start Date: 03/15/22 Status: Ordered omeprazole 20 mg oral delayed release tablet 1 tablet = 20 mg, By Mouth, Daily, # 30 tablet, 11 Refills, Maintenance, 07/10/22 15:48:00 EDT, CR Tablet, [facility]acy #1230, Partial fill upon patient request if the prescription is for a schedule II opioid drug., 180, cm, 09/26/21 10:49:00 EDT, [facility]... Start Date: 07/10/22 Stop Date: 07/05/23 Status: Ordered oxyCODONE 5 mg oral tablet 5 mg, 1, tablet, By Mouth, Every 4 hours, PRN, # 15 tablet, Refills 0, Tot. Refills 0, Maintenance,Pain , Severe, 02/21/22 15:17:00 EST, Route to Pharmacy Electronically, [facility], Partial fill upon patient request [...] 11/18/21 16:53:00 EDT, [id number] Partial fill upon patient request if the prescription is for a schedule II opioid drug... Start Date: 11/18/21 Status: Ordered pravastatin 40 mg oral tablet See Instructions, TAKE 1 TABLET BY MOUTH EVERY DAY, # 30 tablet, 5 Refills, Maintenance, 12/19/21 15:29:00 EDT, [facility], 162, cm, 12/16/21 14:39:00 EDT, Height, 59.5, kg, 12/16/21 0:28:00 EDT, Dry Weight Start Date: 12/19/21 Status: Ordered ProAir HFA 90 mcg/inh inhalation aerosol with adapter 2, puffs, Inhalation, Every 6 hours, PRN, # 8.5 Gm, Refills 1, Tot. Refills 1, 12/13/21 12:40:00 EDT, Route to Pharmacy Electronically, [id number], [facility],162, cm, 12/13/21 4:46:00 EDT, Height, 60.3, kg, 08... Start Date: 12/13/21 Status: Ordered riboflavin 400 mg oral capsule 1 capsule = 400 mg, By Mouth, Daily, # 30 capsule, 5 Refills, Maintenance, 10/19/21 9:10:00 EDT, [facility]acy #1230, Partial fill upon patient request if the prescription is for a schedule II opioid drug., 180, cm, 09/26/21 10:49:00 EDT, Height, 77, k... Start Date: 10/19/21 Status: Ordered SEROquel 25 mg oral tablet 25 mg, 1, tablet, By Mouth, Daily at bedtime, # 30 tablet, Refills 5, Tot. Refills 5, Maintenance, 10/28/21 14:23:00 EDT, Route to Pharmacy Electronically, [facility]acy #1230, 165, cm, 10/28/21 4:51:00 EDT, Height, 60.5, kg, 10/26/21 13:16:00 EDT, Dry... Start Date: 10/28/21 Status: Ordered Spiriva Respimat 1.25 mcg/inh inhalation aerosol 2 puffs, Inhalation, Daily, # 4 Gm, 5 Refills, 10/19/21 9:10:00 EDT, [facility] #1230, 180, cm, 09/26/21 10:49:00 EDT, Height, 77, kg, 04/20/21 15:47:00 EST, Dry Weight Start Date: 10/19/21 Status: Ordered Symbicort 160mcg/4.5mcg Inhaler 2, puffs, Inhalation, 2 times a day, # 10.2 Gm, Refills 10, Tot. Refills 10, 10/19/21 9:10:00 EDT, Route to Pharmacy Electronically, [id number], [facility]acy #1230, 180, cm,09/26/21 10:49:00 EDT, Height, 77, kg, 04/20/21 15:... Start Date: 10/19/21 Status: Ordered tamsulosin 0.4 mg oral capsule 1, capsule, By Mouth, Daily, # 30 capsule, Refills 4, Tot. Refills 4, Maintenance, 10/19/21 9:10:00EDT, Route to Pharmacy Electronically, [facility] #1230, 180, cm, 09/26/21 10:49:00 EDT, Height, 77, kg, 04/20/21 15:47:00 EST, Dry Weight Start Date: 10/19/21 Status: Ordered venlafaxine 37.5 mg oral capsule, extended release 37.5 mg, 1, capsule, By Mouth, Daily, # 30 capsule, Refills 1, Tot. Refills 1, Maintenance, 02/09/22 12:57:00 EDT, Route to Pharmacy Electronically, [facility]acy #1230, Partial fill upon patient request if the prescription is for a schedule II opioid... Start Date: 02/09/22 Status: Ordered Ventolin HFA 108 mcg/inh inhalation aerosol with adapter 2 puffs, Inhalation, Every 4 hours, PRN for wheezing, # 18 Gm, 0 Refills, Maintenance, 03/21/22 13:25:00 EST, Aerosol, [facility]/pharmacy #[id number], Partial fill upon patient request [...] Team Personnel Name: Ana West RN Position: [facility] RN Member Role: Primary Care Nurse Name: Odalys Orozco RN Position: S RN Member Role: Primary Care Nurse Name: Mike Kruse MD Position: [facility] Primary Care Physician Member Role: PCP Address: Address: [address] [place] [id number] Name: Maryam Valenzuela RN Position: S [...] Persons Name: ENA SOTO Address: home [address] [place] [address] Name: ELISA TOMPKINS Address: [place] [address] Name: JOSE RAFAEL LI
--- OUTSIDE RECORDS SUMMARY | 2022-09-19 20:59 | XMS_ITS | Continuity of Care Document ---
Author Name Unknown Organization [facility] Trevor lt Address [address] [place] [address]- Care Team Providers Care Mechanist Name Role Phone Mike Tristan MD Primary Care Physician [facility]19 - 12/17/19 [facility] [address] [place] [address]- [facility] Allergies, Adverse Reactions, Alerts Substance Reaction Severity [...] 12:49:00 EDT, Aerosol, Route to Pharmacy Electronically, [id number]_[id number], [facility], 174, cm, 10/01/19 13:58:00 EDT, Height, 57, kg, 03/19... Start Date: 11/17/19 Status: Ordered amLODIPine 5 mg oral tablet 5 mg, 1, tablet, By Mouth, Daily, # 90 tablet, Refills 3, Tot. Refills 3, Soft Stop, 02/10/19 13:40:35 EDT, Route to Pharmacy Electronically, NCPDP_[id number], [facility] - [address] [place] [address] Start Date: 02/10/19 Stop Date: 06/10/19 Status: [...] Maintenance, 10/12/2012:42:00 EDT, Route to Pharmacy Electronically, [facility], 174, cm, 10/01/19 13:58:00 EDT, Height, [...] 12/28/19 14:37:00 EDT, 10/29/19 14:37:00 EDT, Tablet, [facility], 174, cm, 10/01/19 13:58:00 EDT, Height, 57, kg, 03/19/19 14:07:00 EST,... Start Date: 10/29/19 Stop Date: 12/28/19 Status: Ordered metoprolol 50 mg oral tablet, extended release 50 mg, 1, tablet, By Mouth, Daily, do not crush or chew, # 30 tablet, Refills 2, Tot. Refills 2, Maintenance, 10/14/19 8:46:00 EDT, Route to Pharmacy Electronically, [facility], 174, cm, 10/01/19 13:58:00 EDT, Height, [...] 10/13/19 13:42:00 EDT, Route to Pharmacy Electronically, [facility], 174, cm, 10/01/19 13:58:00 EDT, Height, 57, kg, 12... Start Date: 10/13/19 Status: Ordered Spiriva HandiHaler 18 mcg inhalation capsule 1 capsule = 18 mcg, Inhalation, Daily, use two inhalations of one capsule for each dose, # 30 capsule, 6 Refills, Maintenance, 07/10/19 14:54:00 EDT, [facility], 174, cm, 05/26/19 14:06:00 EST, Height, 57, kg, 03/19/19 14:07:00 EST, Dry Weight Start Date: 07/10/19 Stop Date: 02/05/20 Status: Ordered traZODone 50 mg oral tablet 100 mg, 2, tablet, By Mouth, Daily at bedtime, # 60 tablet, Refills 2, Tot. Refills 2, Maintenance,10/14/19 8:46:00 EDT, Route to Pharmacy Electronically, [facility], 174, cm, 10/01/19 13:58:00 EDT, Height, [...] Tablet, [facility], 174, cm, 02/10/20 14:06:00 EST, Height, 57, kg, 03/19/19 14:07:00 [...]
--- OUTSIDE RECORDS SUMMARY | 2022-09-19 20:59 | XMS_ITS | Continuity of Care Document ---
Author Name Unknown Organization [facility] Trevor lt Address [address] [place] [address]- Care Team Providers Care Hat Steamer Name Role Phone Aixa BERNABE, Mike Bennett Primary Care Physician [facility] - 06/03/20 [facility] Adult [address] [place] [address]- Allergies, Adverse Reactions, Alerts Substance Reaction Severity [...] 05/05/20 13:45:00 EST, Route to Pharmacy Electronically, [facility], 174, cm, 03/01/20 11:26:00 EST, Height, [...] 0 Refills, Maintenance, 02/13/20 14:46:00 EDT, Tablet, [facility], 1 tablet By Mouth 2 times a day,Instr:as directed on package labeling, 174, cm, 02/13/20 14:1... Start Date: 02/13/20 Status: Ordered Combivent Respimat 20 mcg-100 mcg/inh inhalation aerosol 1 puffs, Inhalation, 4 times a day, PRN NEEDED FOR WHEEZING OR SHORTNESS OF BREATH, # 4 Gm, 11 Refills, Maintenance, 05/07/20 10:33:00 EST, [facility], 30, 1 puffs Inhalation 4 times [...] Maintenance, 04/27/2113:59:00 EST, Route to Pharmacy Electronically, [facility], 174, cm, 03/01/20 11:26:00 EST, Height, 57, kg, 03/19/19 14:07:00 EST, Dry Weight Start Date: 04/27/20 Status: Ordered fluticasone 50 mcg/inh nasal spray See Instructions, INSTILL 1 SPRAY INTO EACH NOSTRIL TWICE DAILY, # 16 Gm, 2 Refills, Maintenance, [facility], 30, INSTILL 1 SPRAY INTO EACH [...] tablet, 0 Refills, Maintenance, 05/06/20 8:04:00 EST, [facility], 174, cm, 03/01/20 11:26:00 EST, Height, 57, kg, 03/19/19 14:07:00 EST, Dry Weight Start Date: 05/06/20 Status: Ordered metoprolol 50 mg oral tablet, extended release 50 mg, 1, tablet, By Mouth, Daily, do not crush or chew, # 30 tablet, Refills 2, Tot. Refills 2, Maintenance, 10/14/19 8:46:00 EDT, Route to Pharmacy Electronically, [facility], 174, cm, 10/01/19 13:58:00 EDT, Height, 57, kg, 03/19/19 14:07:... Start Date: 10/14/19 Status: Ordered Nasacort Allergy 24HR 55 mcg/inh nasal spray 2 sprays, Nares, Both, Daily, # 3 each, 0 Refills, Maintenance, 01/08/20 14:50:00 EDT, [facility], 2 sprays Nares, Both Daily, 174, [...] Refills, Maintenance, 03/23/20 10:59:00 EST, Tablet, [facility], 174, cm, 03/01/20 11:26:00 EST, Height, 57, kg, 03/19/19 14:07:00 EST, DryWeight Start Date: 03/23/20 Status: Ordered Singulair 10 mg oral tablet 10 mg, 1, tablet, By Mouth, Daily at bedtime, PER ARPIT PRITCHARD NP-Vic, # 30 tablet, Refills 5, Tot. Refills 5, Maintenance, 05/05/20 13:42:00 EST, Route to Pharmacy Electronically, [facility], 174, cm, 03/01/20 11:26:00 EST, Height, 57, kg, 12... Start Date: 05/05/20 Status: Ordered Spiriva Respimat 1.25 mcg/inh inhalation aerosol 2 puffs, Inhalation, Daily, # 4 Gm, 11 Refills, Maintenance, 05/25/20 13:51:00 EST, Aerosol, [facility], Partial fill upon patient request if the prescription is for a schedule II opioid drug., 174, cm, 05/07/20 10:13:00 EST, Height, 57, kg,... Start Date: 05/25/20 Status: Ordered Symbicort 160mcg/4.5mcg Inhaler 2, puffs, Inhalation, 2 times a day, # 1 each, Refills 11, Tot. Refills 11, Maintenance, 05/25/20 13:51:00 EST, Aerosol, Route to Pharmacy Electronically, [id number], [facility], 174,cm, 05/07/20 10:13:00 EST, Height, 57, kg, 03/19/19... Start Date: 05/25/20 Status: Ordered traZODone 50 mg oral tablet 100 mg, 2, tablet, By Mouth, Daily at bedtime, # 60 tablet, Refills 5, Tot. Refills 5, Maintenance,03/08/20 9:08:00 EST, Route to Pharmacy Electronically, [facility], 174, cm, 03/01/20 11:26:00 EST, Height, 57, kg, 03/19/19 14:07:00 EST, DrBenjamin.. Start Date: 03/08/20 Status: Ordered Tylenol Extra [...]
--- OUTSIDE RECORDS SUMMARY | 2022-09-19 20:59 | XMS_ITS | Continuity of Care Document ---
Author Name Unknown Organization [facility] Trevor lt Address [address] [place] [address]- Care Team Providers Care Funeral Home Director Name Role Phone Aixa BERNABE, Mike Bennett Primary Care Physician [phone] [facility] 04[facility]/21 - 05/11/21 [facility] Adult [address] [place] [address]- Allergies, Adverse Reactions, Alerts Substance Reaction Severity [...] 04/12/21 8:59:00 EST, Route to Pharmacy Electronically, [facility], 174, cm, 03/22/21 13:58:00 EST, Height [...] Gm, 5 Refills, Maintenance, 05/10/21 11:08:00 EST, [facility], 30, 1 puffs Inhalation 4 times a day,PRN: NEEDED FOR WHEEZING OR SHORTNESS OF BREATH,... Start Date: 05/10/21 Status: Ordered fluticasone 50 mcg/inh nasal spray See Instructions, USE 1 SPRAY IN EACH NOSTRIL TWICE A DAY, # 16 Gm, 5 Refills, [facility], 30, USE 1 SPRAY IN EACH [...] 05/13/21 10:48:00 EST, 05/03/21 10:48:00 EST, Tablet, [facility], Partial fill upon patient request if the prescription is for a... Start Date: 05/03/21 Stop Date: 05/13/21 Status: Ordered losartan 100 mg oral tablet 1 tablet, By Mouth, Daily, # 30 tablet, 11 Refills, Maintenance, 07/12/20 14:44:00 EDT, [facility], 174, cm, 07/12/20 14:32:00 EDT, Height, 57, kg, 03/19/19 14:07:00 EST, Dry Weight Start Date: 07/12/20 Status: Ordered metoprolol 50 mg oral tablet, extended release 50 mg, 1, tablet, By Mouth, Daily, do not crush or chew, # 30 tablet, Refills 11, Tot. Refills 11, Maintenance, 07/12/20 14:44:00 EDT, Route to Pharmacy Electronically, [facility], 174, cm,07/12/20 14:32:00 EDT, Height, 57, kg, 03/19/19 14:... Start Date: 07/12/20 Status: Ordered montelukast 10 mg oral tablet 1, tablet, By Mouth, Daily at bedtime, # 30 tablet, Refills 5, Route to Pharmacy Electronically, [facility], 174, cm, 03/22/21 13:58:00 EST, Height [...] 05/17/21 10:47:00 EST, 05/03/21 10:47:00 EST, Patch, [facility], Partial fill upon patient request if the prescription is for a schedule II opioid drug., 1 patch Topically... Start Date: 05/03/21 Stop Date: 05/17/21 Status: Ordered nicotine 4 mg oral transmucosal lozenge 1 lozenge = 4 mg, By Mouth, Every hour, # 72 lozenge, 0 Refills, Acute 05/16/21 21:00:00 EST, 05/03/21 10:23:00 EST, [facility], Partial fill upon patient request if the prescription is fora schedule II opioid drug., 1 lozenge By Mouth Ever... Start Date: 05/03/21 Stop Date: 05/16/21 Status: Ordered Nicotine 7 mg/24 hour patch 1 patch, Topically, Daily, for 14 days, # 14 patch, 0 Refills, Acute 05/17/21 10:47:00 EST, 05/03/21 10:47:00 EST, Patch, [facility], Partial fill upon [...] Gm, Refills 6, Route to Pharmacy Electronically, [id number]_[id number], [facility], 174, cm, 04/14/21 14:32:00 EST, Height Start [...] Inhalation, Daily, # 4 Gm, 5 Refills, [facility], 180, cm, 05/03/21 9:32:00 EST,Height, 77, kg, 04/20/21 15:47:00 EST, Dry Weight Start Date: 05/05/21 Status: Ordered Symbicort 160mcg/4.5mcg Inhaler 2, puffs, Inhalation, 2 times a day, # 10.2 Gm, Refills 10, Route to Pharmacy Electronically, [id number]_[id number], [facility], 180, cm, 05/03/21 9:32:00 EST, Height, 77, kg, 04/20/21 15:47:00 EST, Dry Weight Start Date: 05/06/21 Status: Ordered tamsulosin 0.4 mg oral capsule 1, capsule, By Mouth, Daily, # 30 capsule, Refills 5, Route to Pharmacy Electronically, [facility], 174, cm, 03/15/21 10:16:00 EST, Height, 57, kg, 03/19/19 14:07:00 EST, Dry Weight Start Date: 03/15/21 Status: Ordered traZODone 50 mg oral tablet 100 mg, 2, tablet, By Mouth, Daily at bedtime, # 60 tablet, Refills 11, Tot. Refills 11, Maintenance, 07/12/20 14:43:00 EDT, Route to Pharmacy Electronically, [facility], 174, cm, 07/12/20 14:32:00 EDT, Height, [...]
--- OUTSIDE RECORDS SUMMARY | 2022-09-19 20:59 | XMS_ITS | Continuity of Care Document ---
Author Name Unknown Organization [facility] Trevor lt Address [address] [place] [address]- Care Team Providers Care Civil Cad Tech Name Role Phone Mike Kruse MD Primary Care Physician [phone] [facility] 04[facility]21 - 05/29/21 [facility] Adult [address] [place] [address]- Allergies, Adverse Reactions, Alerts Substance Reaction Severity [...] 04/12/21 8:59:00 EST, Route to Pharmacy Electronically, [facility], 174, cm, 03/22/21 13:58:00 EST, Height Start Date: 04/12/21 Status: Ordered Aspirin Low Dose 81 mg oral delayed release tablet 1 tablet, By Mouth, Daily, # 30 tablet, 11 Refills, [facility], 180, cm, 05/03/21 9:32:00EST, Height, 77, kg, 04/20/21 15:47:00 EST, Dry Weight Start Date: 05/06/21 Status: Ordered Combivent Respimat 20 mcg-100 mcg/inh inhalation aerosol 1 puffs, Inhalation, 4 times a day, PRN NEEDED FOR WHEEZING OR SHORTNESS OF BREATH, # 4 Gm, 5 Refills, Maintenance, 05/10/21 11:08:00 EST, [facility], 30, 1 puffs Inhalation 4 times a day,PRN: NEEDED FOR WHEEZING OR SHORTNESS OF BREATH,... Start Date: 05/10/21 Status: Ordered fluticasone 50 mcg/inh nasal spray See Instructions, USE 1 SPRAY IN EACH NOSTRIL TWICE A DAY, # 16 Gm, 5 Refills, [facility], 30, USE 1 SPRAY IN EACH NOSTRIL TWICE A DAY, 180, cm, 05/03/21 9:32:00 EST, Height, 77, kg, 04/20/21 15:47:00 EST, Dry Weight Start Date: 05/10/21 Status: Ordered losartan 100 mg oral tablet 1 tablet, By Mouth, Daily, # 30 tablet, 11 Refills, Maintenance, 07/12/20 14:44:00 EDT, [facility], 174, cm, 07/12/20 14:32:00 EDT, Height, 57, kg, 03/19/19 14:07:00 EST, Dry Weight Start Date: 07/12/20 Status: Ordered metoprolol 50 mg oral tablet, extended release 50 mg, 1, tablet, By Mouth, Daily, do not crush or chew, # 30 tablet, Refills 11, Tot. Refills 11, Maintenance, 07/12/20 14:44:00 EDT, Route to Pharmacy Electronically, [facility], 174, cm,07/12/20 14:32:00 EDT, Height, 57, kg, 03/19/19 14:... Start Date: 07/12/20 Status: Ordered montelukast 10 mg oral tablet 1, tablet, By Mouth, Daily at bedtime, # 30 tablet, Refills 5, [facility], [facility] [...] 1 Refills, Maintenance, 05/10/21 10:26:00 EST, Tablet, [facility], 180, cm, 05/03/21 9:32:00 EST, Height, [...] 0 Refills, Maintenance, 04/22/21 10:45:00 EST, Tablet, [facility], Partial fill upon patien... Start Date: 04/22/21 Status: Ordered ProAir HFA 90 mcg/inh inhalation aerosol with adapter 2, puffs, Inhalation, Every 6 hours, PRN, # 8.5 Gm, Refills 6, Route to Pharmacy Electronically, NCPDP_[id number], [facility], 174, cm, 04/14/21 14:32:00 EST, Height Start Date: 04/18/21 Status: Ordered Remeron 15 mg oral tablet 1 tablet = 15 mg, By Mouth, Daily at bedtime, REPLACES ZOLOFT, # 30 tablet, 1 Refills, Maintenance,06/22/20 15:13:00 EST, Tablet, [facility], Partial fill upon patient request if the prescription is for a schedule II opioid drug., 174, cm,... Start Date: 06/22/20 Status: Ordered Spiriva Respimat 1.25 mcg/inh inhalation aerosol 2 puffs, Inhalation, Daily, # 4 Gm, 5 Refills, [facility], 180, cm, 05/03/21 9:32:00 EST,Height, 77, kg, 04/20/21 15:47:00 EST, Dry Weight Start Date: 05/05/21 Status: Ordered Symbicort 160mcg/4.5mcg Inhaler 2, puffs, Inhalation, 2 times a day, # 10.2 Gm, Refills 10, Route to Pharmacy Electronically, NCPDP_[id number], [facility], 180, cm, 05/03/21 9:32:00 EST, Height, 77, kg, 04/20/21 15:47:00 EST, Dry Weight Start Date: 05/06/21 Status: Ordered tamsulosin 0.4 mg oral capsule 1, capsule, By Mouth, Daily, # 30 capsule, Refills 5, [facility], 174, cm, 03/15/21 10:16:00 EST, Height, 57, kg, 03/19/19 14:07:00 EST, Dry Weight Start Date: 03/15/21 Status: Ordered traZODone 50 mg oral tablet 100 mg, 2, tablet, By Mouth, Daily at bedtime, # 60 tablet, Refills 11, Tot. Refills 11, Maintenance, 07/12/20 14:43:00 EDT, Route to Pharmacy Electronically, [facility], 174, cm, 07/12/20 14:32:00 EDT, Height, [...]
--- OUTSIDE RECORDS SUMMARY | 2022-09-19 20:59 | XMS_ITS | Continuity of Care Document ---
Author Name Unknown Organization [facility] Trevor lt Address [address] [place] [address]- Care Team Providers Care Heavy Threader Name Role Phone Mike Kruse MD Primary Care Physician [facility]): 05/04/21 - 06/03/21 [facility] Adult [address] [place] [address]- Allergies, Adverse Reactions, Alerts Substance Reaction Severity [...] 04/12/21 8:59:00 EST, Route to Pharmacy Electronically, [facility], 174, cm, 03/22/21 13:58:00 EST, Height Start Date: 04/12/21 Status: Ordered Aspirin Low Dose 81 mg oral delayed release tablet 1 tablet, By Mouth, Daily, # 30 tablet, 11 Refills, [facility], 180, cm, 05/03/21 9:32:00EST, Height, 77, kg, 04/20/21 15:47:00 EST, Dry Weight Start Date: 05/06/21 Status: Ordered Combivent Respimat 20 mcg-100 mcg/inh inhalation aerosol 1 puffs, Inhalation, 4 times a day, PRN NEEDED FOR WHEEZING OR SHORTNESS OF BREATH, # 4 Gm, 5 Refills, Maintenance, 05/10/21 11:08:00 EST, [facility], 30, 1 puffs Inhalation 4 times a day,PRN: NEEDED FOR WHEEZING OR SHORTNESS OF BREATH,... Start Date: 05/10/21 Status: Ordered fluticasone 50 mcg/inh nasal spray See Instructions, USE 1 SPRAY IN EACH NOSTRIL TWICE A DAY, # 16 Gm, 5 Refills, [facility], 30, USE 1 SPRAY IN EACH NOSTRIL TWICE A DAY, 180, cm, 05/03/21 9:32:00 EST, Height, 77, kg, 04/20/21 15:47:00 EST, Dry Weight Start Date: 05/10/21 Status: Ordered losartan 100 mg oral tablet 1 tablet, By Mouth, Daily, # 30 tablet, 11 Refills, Maintenance, 07/12/20 14:44:00 EDT, [facility], 174, cm, 07/12/20 14:32:00 EDT, Height, 57, kg, 03/19/19 14:07:00 EST, Dry Weight Start Date: 07/12/20 Status: Ordered metoprolol 50 mg oral tablet, extended release 50 mg, 1, tablet, By Mouth, Daily, do not crush or chew, # 30 tablet, Refills 11, Tot. Refills 11, Maintenance, 07/12/20 14:44:00 EDT, Route to Pharmacy Electronically, [facility], 174, cm,07/12/20 14:32:00 EDT, Height, 57, kg, 03/19/19 14:... Start Date: 07/12/20 Status: Ordered montelukast 10 mg oral tablet 1, tablet, By Mouth, Daily at bedtime, # 30 tablet, Refills 5, Route to Pharmacy Electronically, [facility], 174, cm, 03/22/21 13:58:00 EST, Height Start Date: 04/07/21 Status: Ordered Nebulizer/Compressor See Instructions, # 1 each, Maintenance, Use up to qid Dx. copd Include tubing and mouthpiece, 04/29/21 14:42:00 EST, Supply Start Date: 04/29/21 Status: Ordered pravastatin 40 mg oral tablet 1 tablet = 40 mg, By Mouth, Daily, # 90 tablet, 1 Refills, Maintenance, 05/10/21 10:26:00 EST, Tablet, [facility], 180, cm, 05/03/21 9:32:00 EST, Height, [...] 0 Refills, Maintenance, 04/22/21 10:45:00 EST, Tablet, [facility], Partial fill upon patien... Start Date: 04/22/21 Status: Ordered ProAir HFA 90 mcg/inh inhalation aerosol with adapter 2, puffs, Inhalation, Every 6 hours, PRN, # 8.5 Gm, Refills 6, Route to Pharmacy Electronically, NCPDP_[id number], [facility], 174, cm, 04/14/21 14:32:00 EST, Height Start Date: 04/18/21 Status: Ordered Remeron 15 mg oral tablet 1 tablet = 15 mg, By Mouth, Daily at bedtime, REPLACES ZOLOFT, # 30 tablet, 1 Refills, Maintenance,06/22/20 15:13:00 EST, Tablet, [facility], Partial fill upon patient request if the prescription is for a schedule II opioid drug., 174, cm,... Start Date: 06/22/20 Status: Ordered Spiriva Respimat 1.25 mcg/inh inhalation aerosol 2 puffs, Inhalation, Daily, # 4 Gm, 5 Refills, [facility], 180, cm, 05/03/21 9:32:00 EST,Height, 77, kg, 04/20/21 15:47:00 EST, Dry Weight Start Date: 05/05/21 Status: Ordered Symbicort 160mcg/4.5mcg Inhaler 2, puffs, Inhalation, 2 times a day, # 10.2 Gm, Refills 10, Route to Pharmacy Electronically, NCPDP_[id number], [facility], 180, cm, 05/03/21 9:32:00 EST, Height, 77, kg, 04/20/21 15:47:00 EST, Dry Weight Start Date: 05/06/21 Status: Ordered tamsulosin 0.4 mg oral capsule 1, capsule, By Mouth, Daily, # 30 capsule, Refills 5, [facility], 174, cm, 03/15/21 10:16:00 EST, Height, 57, kg, 03/19/19 14:07:00 EST, Dry Weight Start Date: 03/15/21 Status: Ordered traZODone 50 mg oral tablet 100 mg, 2, tablet, By Mouth, Daily at bedtime, # 60 tablet, Refills 11, Tot. Refills 11, Maintenance, 07/12/20 14:43:00 EDT, Route to Pharmacy Electronically, [facility], 174, cm, 07/12/20 14:32:00 EDT, Height, [...]
--- OUTSIDE RECORDS SUMMARY | 2022-09-19 20:59 | XMS_ITS | Continuity of Care Document ---
Author Name Unknown Organization [facility] Trevor lt Address [address] [place] [id number]- Care Team Providers Care Health And Human Performance Professor Name Role Phone Mike Tristan MD Primary Care Physician [facility] 02[facility]27[facility]20 - 03/28/20 [facility] Adult [address] [place] [address]- Allergies, Adverse Reactions, Alerts Substance Reaction Severity [...] 12:49:00 EDT, Aerosol, Route to Pharmacy Electronically, [id number], [facility], 174, cm, 10/01/19 13:58:00 EDT, Height, 57, kg, 03/19... Start Date: 11/17/19 Status: Ordered amLODIPine 5 mg oral tablet 5 mg, 1, tablet, By Mouth, Daily, # 90 tablet, Refills 1, Tot. Refills 1, Soft Stop, 03/23/20 11:00:00 EST, Route to Pharmacy Electronically, [facility], 174, cm, 03/01/20 11:26:00 EST, Height, 57, kg, 03/19/19 14:07:00 EST, Dry Weight Start Date: 03/23/20 Status: Ordered aspirin 81 mg oral tablet 1 tablet = 81 mg, By Mouth, Daily, PER DR TRISTAN, # 30 tablet, 5 Refills, Maintenance, 10/13/19 13:42:00 EDT, Tablet, [facility], 174, cm, 10/01/19 13:58:00 EDT, Height, 57, kg, 03/19/19 14:07:00 EST, Dry Weight Start Date: 10/13/19 Status: Ordered Azithromycin 5 Day Dose Pack 250 mg oral tablet 1 pack/packet, By Mouth, Once, # 6 tablet, 0 Refills, Soft Stop, 03/01/20 12:01:00 EST, Tablet, [facility], Partial fill upon patient request, 174, cm, 03/01/20 11:26:00 EST, Height, 57, kg, 03/19/19 14:07:00 EST, Dry Weight Start Date: 03/01/20 Status: Ordered Chantix Starter Pack 0.5 mg-1 mg oral tablet 1 tablet, By Mouth, 2 times a day, as directed on package labeling, # 53 tablet, 0 Refills, Maintenance, 02/13/20 14:46:00 EDT, Tablet, [facility], 1 tablet By Mouth 2 times a day,Instr:as directed on package labeling, 174, cm, 02/13/20 14:1... Start Date: 02/13/20 Status: Ordered Combivent Respimat 20 mcg-100 mcg/inh inhalation aerosol 1 puffs, Inhalation, 4 times a day, PRN Wheezing/Shortness of Breath, # 1 each, 0 Refills, Maintenance, 03/12/20 14:48:00 EST, Aerosol, [facility], 1 puffs Inhalation 4 times a [...] Maintenance, 10/12/2012:42:00 EDT, Route to Pharmacy Electronically, [facility], 174, cm, 10/01/19 13:58:00 EDT, Height, [...] 10/14/19 8:46:00 EDT, Route to Pharmacy Electronically, [facility], 174, cm, 10/01/19 13:58:00 EDT, Height, 57, kg, 03/19/19 14:07:... Start Date: 10/14/19 Status: Ordered Nasacort Allergy 24HR 55 mcg/inh nasal spray 2 sprays, Nares, Both, Daily, # 3 each, 0 Refills, Maintenance, 01/08/20 14:50:00 EDT, [facility], 2 sprays Nares, Both Daily, 174, [...] 1 Refills, Maintenance, 03/23/20 10:59:00 EST, Tablet, [facility], 174, cm, 03/01/20 11:26:00 EST, Height, 57, kg, 03/19/19 14:07:00 EST, DryWeight Start Date: 03/23/20 Status: Ordered Singulair 10 mg oral tablet 10 mg, 1, tablet, By Mouth, Daily at bedtime, PER ARPIT PRITCHARD NP-C, # 30 tablet, Refills 5, Tot. Refills 5, Maintenance, 10/13/19 13:42:00 EDT, Route to Pharmacy Electronically, [facility], 174, cm, 10/01/19 13:58:00 EDT, Height, 57, kg, 12... Start Date: 10/13/19 Status: Ordered Spiriva HandiHaler 18 mcg inhalation capsule 1 capsule = 18 mcg, Inhalation, Daily, use two inhalations of one capsule for each dose, # 30 capsule, 5 Refills, Maintenance, 02/18/20 9:52:00 EST, [facility], 174, cm, 02/13/20 14:17:00 EDT, Height, 57, kg, 03/19/19 14:07:00 EST, Dry Weight Start Date: 02/18/20 Stop Date: 08/16/20 Status: Ordered traZODone 50 mg oral tablet 100 mg, 2, tablet, By Mouth, Daily at bedtime, # 60 tablet, Refills 5, Tot. Refills 5, Maintenance,03/08/20 9:08:00 EST, Route to Pharmacy Electronically, [facility], 174, cm, 03/01/20 11:26:00 EST, Height, [...] 5 Refills, Maintenance, 03/08/20 8:02:00 EST, Tablet, [facility], 174, cm, 03/01/20 11:26:00 EST, Height, [...]
--- OUTSIDE RECORDS SUMMARY | 2022-09-19 20:59 | XMS_ITS | Continuity of Care Document ---
Author Name Unknown Organization [facility] Trevor lt Address [address] [place] [address]- Care Team Providers Care Rn Community Health Name Role Phone Mike Tristan MD Primary Care Physician [facility] 05[facility]20 - 06/23/20 [facility] Adult [address] [place] [address]- Allergies, Adverse Reactions, Alerts Substance Reaction Severity [...] 05/05/20 13:45:00 EST, Route to Pharmacy Electronically, [facility], 174, cm, 03/01/20 11:26:00 EST, Height, 57, kg, 03/19/19 14:07:00 EST, Dry Weight Start Date: 05/05/20 Status: Ordered aspirin 81 mg oral tablet 1 tablet = 81 mg, By Mouth, Daily, PER DR TRISTAN, # 30 tablet, 5 Refills, Maintenance, 10/13/19 13:42:00 EDT, Tablet, [facility], 174, cm, 10/01/19 13:58:00 EDT, Height, [...] Gm, 11 Refills, Maintenance, 05/07/20 10:33:00 EST, [facility], 30, 1 puffs Inhalation 4 times [...] Maintenance, 04/27/2113:59:00 EST, Route to Pharmacy Electronically, [facility], 174, cm, 03/01/20 11:26:00 EST, Height, 57, kg, 03/19/19 14:07:00 EST, Dry Weight Start Date: 04/27/20 Status: Ordered fluticasone 50 mcg/inh nasal spray See Instructions, INSTILL 1 SPRAY INTO EACH NOSTRIL TWICE DAILY, # 16 Gm, 2 Refills, Maintenance, [facility], 30, INSTILL 1 SPRAY INTO EACH [...] 10/14/19 8:46:00 EDT, Route to Pharmacy Electronically, [facility], 174, cm, 10/01/19 13:58:00 EDT, Height, 57, kg, 03/19/19 14:07:... Start Date: 10/14/19 Status: Ordered Nasacort Allergy 24HR 55 mcg/inh nasal spray 2 sprays, Nares, Both, Daily, # 3 each, 0 Refills, Maintenance, 01/08/20 14:50:00 EDT, [facility], 2 sprays Nares, Both Daily, 174, [...] 1 Refills, Maintenance, 03/23/20 10:59:00 EST, Tablet, [facility], 174, cm, 03/01/20 11:26:00 EST, Height, 57, kg, 03/19/19 14:07:00 EST, DryWeight Start Date: 03/23/20 Status: Ordered PriLOSEC OTC 20 mg oral delayed release tablet 1 tablet = 20 mg, By Mouth, Daily, # 14 tablet, 0 Refills, Maintenance, 06/08/20 10:27:00 EST, EC Tablet, [facility], Partial fill upon patient request if the prescription is for a scheduleII opioid drug., 174, cm, 06/08/20 9:48:00 EST, Hei... Start Date: 06/08/20 Stop Date: 06/22/20 Status: Ordered Remeron 15 mg oral tablet 1 tablet = 15 mg, By Mouth, Daily at bedtime, REPLACES ZOLOFT, # 30 tablet, 1 Refills, Maintenance,06/22/20 15:13:00 EST, Tablet, [facility], Partial fill upon patient request if the prescription is for a schedule II opioid drug., 174, cm,... Start Date: 06/22/20 Status: Ordered Singulair 10 mg oral tablet 10 mg, 1, tablet, By Mouth, Daily at bedtime, PER ARPIT DUNN, # 30 tablet, Refills 5, Tot. Refills 5, Maintenance, 05/05/20 13:42:00 EST, Route to Pharmacy Electronically, [facility], 174, cm, 03/01/20 11:26:00 EST, Height, [...] 13:51:00 EST, Aerosol, Route to Pharmacy Electronically, [id number], [facility], 174,cm, 05/07/20 10:13:00 EST, [...]
--- OUTSIDE RECORDS SUMMARY | 2022-09-19 20:59 | XMS_ITS | Continuity of Care Document ---
Author Name Unknown Organization [facility] [place] Trevor lt Address [address] [place] [address]- Care Team Providers Care Hopper Feeder Name Role Phone Mike Kruse MD Primary Care Physician [place] [facility] [place]21 [facility] [place] [address] [place] [address]- Attending Physician: Admtr, [id number] Admitting Physician: Admtr, [...] 04/12/21 8:59:00 EST, Route to Pharmacy Electronically, [facility], 174, cm, 03/22/21 13:58:00 EST, Height Start Date: 04/12/21 Status: Ordered Aspirin Low Dose 81 mg oral delayed release tablet 1 tablet, By Mouth, Daily, # 30 tablet, 11 Refills, [facility], 180, cm, 05/03/21 9:32:00EST, Height, 77, kg, 04/20/21 15:47:00 EST, Dry Weight Start Date: 05/06/21 Status: Ordered Combivent Respimat 20 mcg-100 mcg/inh inhalation aerosol 1 puffs, Inhalation, 4 times a day, PRN NEEDED FOR WHEEZING OR SHORTNESS OF BREATH, # 4 Gm, 5 Refills, Maintenance, 05/10/21 11:08:00 EST, [facility], 30, 1 puffs Inhalation 4 times a day,PRN: NEEDED FOR WHEEZING OR SHORTNESS OF BREATH,... Start Date: 05/10/21 Status: Ordered fluticasone 50 mcg/inh nasal spray See Instructions, USE 1 SPRAY IN EACH NOSTRIL TWICE A DAY, # 16 Gm, 5 Refills, [facility], 30, USE 1 SPRAY IN EACH NOSTRIL TWICE A DAY, 180, cm, 05/03/21 9:32:00 EST, Height, 77, kg, 04/20/21 15:47:00 EST, Dry Weight Start Date: 05/10/21 Status: Ordered losartan 100 mg oral tablet 1 tablet, By Mouth, Daily, # 30 tablet, 11 Refills, Maintenance, 07/12/20 14:44:00 EDT, [facility], 174, cm, 07/12/20 14:32:00 EDT, Height, 57, kg, 03/19/19 14:07:00 EST, Dry Weight Start Date: 07/12/20 Status: Ordered metoprolol 50 mg oral tablet, extended release 50 mg, 1, tablet, By Mouth, Daily, do not crush or chew, # 30 tablet, Refills 11, Tot. Refills 11, Maintenance, 07/12/20 14:44:00 EDT, Route to Pharmacy Electronically, [facility], 174, cm,07/12/20 14:32:00 EDT, Height, 57, kg, 03/19/19 14:... Start Date: 07/12/20 Status: Ordered montelukast 10 mg oral tablet 1, tablet, By Mouth, Daily at bedtime, # 30 tablet, Refills 5, Route to Pharmacy Electronically, [facility], 174, cm, 03/22/21 13:58:00 EST, Height Start Date: 04/07/21 Status: Ordered Nebulizer/Compressor See Instructions, # 1 each, Maintenance, Use up to qid Dx. copd Include tubing and mouthpiece, 04/29/21 14:42:00 EST, Supply Start Date: 04/29/21 Status: Ordered pravastatin 40 mg oral tablet 1 tablet = 40 mg, By Mouth, Daily, # 90 tablet, 1 Refills, Maintenance, 05/10/21 10:26:00 EST, Tablet, [facility], 180, cm, 05/03/21 9:32:00 EST, Height, [...] 0 Refills, Maintenance, 04/22/21 10:45:00 EST, Tablet, [facility], Partial fill upon patien... Start Date: 04/22/21 Status: Ordered ProAir HFA 90 mcg/inh inhalation aerosol with adapter 2, puffs, Inhalation, Every 6 hours, PRN, # 8.5 Gm, Refills 6, Route to Pharmacy Electronically, [id number], [facility], 174, cm, 04/14/21 14:32:00 EST, Height Start Date: 04/18/21 Status: Ordered Remeron 15 mg oral tablet 1 tablet = 15 mg, By Mouth, Daily at bedtime, REPLACES ZOLOFT, # 30 tablet, 1 Refills, Maintenance,06/22/20 15:13:00 EST, Tablet, [facility], Partial fill upon patient request if the prescription is for a schedule II opioid drug., 174, cm,... Start Date: 06/22/20 Status: Ordered Spiriva Respimat 1.25 mcg/inh inhalation aerosol 2 puffs, Inhalation, Daily, # 4 Gm, 5 Refills, [facility], 180, cm, 05/03/21 9:32:00 EST,Height, 77, kg, 04/20/21 15:47:00 EST, Dry Weight Start Date: 05/05/21 Status: Ordered Symbicort 160mcg/4.5mcg Inhaler 2, puffs, Inhalation, 2 times a day, # 10.2 Gm, Refills 10, Route to Pharmacy Electronically, [id number]_[id number], [facility], 180, cm, 05/03/21 9:32:00 EST, Height, 77, kg, 04/20/21 15:47:00 EST, Dry Weight Start Date: 05/06/21 Status: Ordered tamsulosin 0.4 mg oral capsule 1, capsule, By Mouth, Daily, # 30 capsule, Refills 5, Route to Pharmacy Electronically, [facility], 174, cm, 03/15/21 10:16:00 EST, Height, 57, kg, 03/19/19 14:07:00 EST, Dry Weight Start Date: 03/15/21 Status: Ordered traZODone 50 mg oral tablet 100 mg, 2, tablet, By Mouth, Daily at bedtime, # 60 tablet, Refills 11, Tot. Refills 11, Maintenance, 07/12/20 14:43:00 EDT, Route to Pharmacy Electronically, [facility], 174, cm, 07/12/20 14:32:00 EDT, Height, [...]
--- OUTSIDE RECORDS SUMMARY | 2022-09-19 20:59 | XMS_ITS | Continuity of Care Document ---
Author Name Unknown Organization [facility] Trevor lt Address [address] [place] [address]- Care Team Providers Care Manager Scheduling Name Role Phone Mike Kruse MD Primary Care Physician [phone] Encounter [facility] Date(s): 06/09/21 - 07/09/21 [facility] Adult [address] [place] [address]- Allergies, Adverse Reactions, Alerts Substance Reaction Severity [...] 2 Refills, Maintenance, 06/09/21 16:40:00 EST, Solution, [facility], Partial fill upon patient request if the prescription is for a schedule II opioid drug., 180, cm, . Start Date: 06/09/21 Status: Ordered amLODIPine 5 [...] Mouth, Daily, # 30 tablet, 11 Refills, [facility], 180, cm, 05/03/21 9:32:00EST, Height, 77, kg, 04/20/21 15:47:00 EST, Dry Weight Start Date: 05/06/21 Status: Ordered fluticasone 50 mcg/inh nasal spray See Instructions, USE 1 SPRAY IN EACH NOSTRIL TWICE A DAY, # 16 Gm, 5 Refills, [facility], 30, USE 1 SPRAY IN EACH NOSTRIL TWICE A DAY, 180, cm, 05/03/21 9:32:00 EST, Height, 77, kg, 04/20/21 15:47:00 EST, Dry Weight Start Date: 05/10/21 Status: Ordered losartan 100 mg oral tablet 1 tablet, By Mouth, Daily, # 30 tablet, 5 Refills, Maintenance, 07/05/21 11:52:00 EDT, [facility], 180, cm, 06/27/21 12:02:00 EDT, Height, 77, kg, 04/20/21 15:47:00 EST, Dry Weight Start Date: 07/05/21 Status: Ordered metoprolol 50 mg oral tablet, extended release 50 mg, 1, tablet, By Mouth, Daily, do not crush or chew, # 30 tablet, Refills 11, Tot. Refills 11, Maintenance, 07/12/20 14:44:00 EDT, Route to Pharmacy Electronically, [facility], 174, cm,07/12/20 14:32:00 EDT, Height, 57, [...] Gm, Refills 6, Route to Pharmacy Electronically, [id number]_[id number], [facility], 174, cm, 04/14/21 14:32:00 EST, Height Start Date: 04/18/21 Status: Ordered Spiriva Respimat 1.25 mcg/inh inhalation aerosol 2 puffs, Inhalation, Daily, # 4 Gm, 5 Refills, [facility], 180, cm, 05/03/21 9:32:00 EST,Height, 77, kg, 04/20/21 15:47:00 EST, Dry Weight Start Date: 05/05/21 Status: Ordered Symbicort 160mcg/4.5mcg Inhaler 2, puffs, Inhalation, 2 times a day, # 10.2 Gm, Refills 10, Route to Pharmacy Electronically, NCPDP_[id number], [facility], 180, cm, 05/03/21 9:32:00 EST, Height, 77, kg, 04/20/21 15:47:00 EST, Dry Weight Start Date: 05/06/21 Status: Ordered tamsulosin 0.4 mg oral capsule 1, capsule, By Mouth, Daily, # 30 capsule, Refills 5, Route to Pharmacy Electronically, [facility], 174, cm, 03/15/21 10:16:00 EST, Height, 57, kg, 03/19/19 14:07:00 EST, Dry Weight Start Date: 03/15/21 Status: Ordered traZODone 50 mg oral tablet 100 mg, 2, tablet, By Mouth, Daily at bedtime, # 60 tablet, Refills 11, Tot. Refills 11, Maintenance, 07/12/20 14:43:00 EDT, Route to Pharmacy Electronically, [facility], 174, cm, 07/12/20 14:32:00 EDT, Height, 57, kg, 03/19/19 14:07:00 EST,... Start Date: 07/12/20 Status: Ordered venlafaxine 37.5 mg oral capsule, extended release 37.5 mg, 1, capsule, By Mouth, Daily, # 30 capsule, Refills 0, Tot. Refills 0, Maintenance, 06/27/21 13:03:00 EDT, Route to Pharmacy Electronically, [facility], Partial fill upon patient [...]
--- OUTSIDE RECORDS SUMMARY | 2022-09-19 20:59 | XMS_ITS | Continuity of Care Document ---
Author Name Unknown Organization [facility] Trevor lt Address [address] [place] [address]- Care Team Providers Care Baseball Scout Name Role Phone Mike Kruse MD Primary Care Physician Encounter [facility] Date(s): 04/22/21 - 05/22/21 [facility] Adult [address] [place] [address]- Allergies, Adverse Reactions, Alerts Substance Reaction Severity [...] 04/12/21 8:59:00 EST, Route to Pharmacy Electronically, [facility], 174, cm, 03/22/21 13:58:00 EST, Height Start Date: 04/12/21 Status: Ordered Aspirin Low Dose 81 mg oral delayed release tablet 1 tablet, By Mouth, Daily, # 30 tablet, 11 Refills, [facility], 180, cm, 05/03/21 9:32:00EST, Height, 77, kg, 04/20/21 15:47:00 EST, Dry Weight Start Date: 05/06/21 Status: Ordered Combivent Respimat 20 mcg-100 mcg/inh inhalation aerosol 1 puffs, Inhalation, 4 times a day, PRN NEEDED FOR WHEEZING OR SHORTNESS OF BREATH, # 4 Gm, 5 Refills, Maintenance, 05/10/21 11:08:00 EST, [facility], 30, 1 puffs Inhalation 4 times a day,PRN: NEEDED FOR WHEEZING OR SHORTNESS OF BREATH,... Start Date: 05/10/21 Status: Ordered fluticasone 50 mcg/inh nasal spray See Instructions, USE 1 SPRAY IN EACH NOSTRIL TWICE A DAY, # 16 Gm, 5 Refills, [facility], 30, USE 1 SPRAY IN EACH NOSTRIL TWICE A DAY, 180, cm, 05/03/21 9:32:00 EST, Height, 77, kg, 04/20/21 15:47:00 EST, Dry Weight Start Date: 05/10/21 Status: Ordered losartan 100 mg oral tablet 1 tablet, By Mouth, Daily, # 30 tablet, 11 Refills, Maintenance, 07/12/20 14:44:00 EDT, [facility], 174, cm, 07/12/20 14:32:00 EDT, Height, 57, kg, 03/19/19 14:07:00 EST, Dry Weight Start Date: 07/12/20 Status: Ordered metoprolol 50 mg oral tablet, extended release 50 mg, 1, tablet, By Mouth, Daily, do not crush or chew, # 30 tablet, Refills 11, Tot. Refills 11, Maintenance, 07/12/20 14:44:00 EDT, Route to Pharmacy Electronically, [facility], 174, cm,07/12/20 14:32:00 EDT, Height, 57, kg, 03/19/19 14:... Start Date: 07/12/20 Status: Ordered montelukast 10 mg oral tablet 1, tablet, By Mouth, Daily at bedtime, # 30 tablet, Refills 5, Route to Pharmacy Electronically, [facility], 174, cm, 03/22/21 13:58:00 EST, Height Start Date: 04/07/21 Status: Ordered Nebulizer/Compressor See Instructions, # 1 each, Maintenance, Use up to qid Dx. copd Include tubing and mouthpiece, 04/29/21 14:42:00 EST, Supply Start Date: 04/29/21 Status: Ordered pravastatin 40 mg oral tablet 1 tablet = 40 mg, By Mouth, Daily, # 90 tablet, 1 Refills, Maintenance, 05/10/21 10:26:00 EST, Tablet, [facility], 180, cm, 05/03/21 9:32:00 EST, [...] 0 Refills, Maintenance, 04/22/21 10:45:00 EST, Tablet, [facility], Partial fill upon patien... Start Date: 04/22/21 Status: Ordered ProAir HFA 90 mcg/inh inhalation aerosol with adapter 2, puffs, Inhalation, Every 6 hours, PRN, # 8.5 Gm, Refills 6, Route to Pharmacy Electronically, NCPDP_[id number], [facility], 174, cm, 04/14/21 14:32:00 EST, Height Start Date: 04/18/21 Status: Ordered Remeron 15 mg oral tablet 1 tablet = 15 mg, By Mouth, Daily at bedtime, REPLACES ZOLOFT, # 30 tablet, 1 Refills, Maintenance,06/22/20 15:13:00 EST, Tablet, [facility], Partial fill upon patient request if the prescription is for a schedule II opioid drug., 174, cm,... Start Date: 06/22/20 Status: Ordered Spiriva Respimat 1.25 mcg/inh inhalation aerosol 2 puffs, Inhalation, Daily, # 4 Gm, 5 Refills, [facility], 180, cm, 05/03/21 9:32:00 EST,Height, 77, kg, 04/20/21 15:47:00 EST, Dry Weight Start Date: 05/05/21 Status: Ordered Symbicort 160mcg/4.5mcg Inhaler 2, puffs, Inhalation, 2 times a day, # 10.2 Gm, Refills 10, Route to Pharmacy Electronically, NCPDP_[id number], [facility], 180, cm, 05/03/21 9:32:00 EST, Height, 77, kg, 04/20/21 15:47:00 EST, Dry Weight Start Date: 05/06/21 Status: Ordered tamsulosin 0.4 mg oral capsule 1, capsule, By Mouth, Daily, # 30 capsule, Refills 5, [facility], 174, cm, 03/15/21 10:16:00 EST, Height, 57, kg, 03/19/19 14:07:00 EST, Dry Weight Start Date: 03/15/21 Status: Ordered traZODone 50 mg oral tablet 100 mg, 2, tablet, By Mouth, Daily at bedtime, # 60 tablet, Refills 11, Tot. Refills 11, Maintenance, 07/12/20 14:43:00 EDT, Route to Pharmacy Electronically, [facility], 174, cm, 07/12/20 14:32:00 EDT, Height, [...]
--- OUTSIDE RECORDS SUMMARY | 2022-09-19 20:59 | XMS_ITS | Continuity of Care Document ---
Author Name Unknown Organization [facility] [place] Trevor Address [address] [place] [address]- Care Team Providers Care Softball Umpire Name Role Phone Mike Tristan MD Primary Care Physician [facility]counter [facility] Date(s): 10/13/19 - 11/12/19 [facility] [place] Adult [address] [place] [address]- [facility] Allergies, Adverse Reactions, Alerts [...] 02/10/19 13:40:35 EDT, Route to Pharmacy Electronically, [id number]_[id number], [facility] [id number] [facility] Start Date: 02/10/19 Stop Date: 06/10/19 Status: Ordered aspirin 81 mg oral tablet 1 tablet = 81 mg, By Mouth, Daily, PER DR TRISTAN, # 30 tablet, 5 Refills, Maintenance, 10/13/19 13:42:00 EDT, Tablet, [facility], 174, cm, 10/01/19 13:58:00 EDT, Height, 57, kg, 03/19/19 14:07:00 EST, Dry Weight Start Date: 10/13/19 Status: Ordered Combivent Respimat 20 mcg-100 mcg/inh inhalation aerosol 1 puffs, Inhalation, 4 times a day, PRN Wheezing/Shortness of Breath, # 1 each, 0 Refills, Maintenance, 06/12/19 8:06:00 EST, Aerosol, [facility], 1 puffs Inhalation 4 times a [...] Maintenance, 10/12/2012:42:00 EDT, Route to Pharmacy Electronically, [facility], 174, cm, 10/01/19 13:58:00 EDT, Height, [...] 12/28/19 14:37:00 EDT, 10/29/19 14:37:00 EDT, Tablet, [facility], 174, cm, 10/01/19 13:58:00 EDT, Height, 57, kg, 03/19/19 14:07:00 EST,... Start Date: 10/29/19 Stop Date: 12/28/19 Status: Ordered metoprolol 50 mg oral tablet, extended release 50 mg, 1, tablet, By Mouth, Daily, do not crush or chew, # 30 tablet, Refills 2, Tot. Refills 2, Maintenance, 10/14/19 8:46:00 EDT, Route to Pharmacy Electronically, [facility], 174, cm, 10/01/19 13:58:00 EDT, Height, [...] 10/13/19 13:42:00 EDT, Route to Pharmacy Electronically, [facility], 174, cm, 10/01/19 13:58:00 EDT, Height, 57, kg, 12... Start Date: 10/13/19 Status: Ordered Spiriva HandiHaler 18 mcg inhalation capsule 1 capsule = 18 mcg, Inhalation, Daily, use two inhalations of one capsule for each dose, # 30 capsule, 6 Refills, Maintenance, 07/10/19 14:54:00 EDT, [facility], 174, cm, 05/26/19 14:06:00 EST, Height, 57, kg, 03/19/19 14:07:00 EST, Dry Weight Start Date: 07/10/19 Stop Date: 02/05/20 Status: Ordered traZODone 50 mg oral tablet 100 mg, 2, tablet, By Mouth, Daily at bedtime, # 60 tablet, Refills 2, Tot. Refills 2, Maintenance,10/14/19 8:46:00 EDT, Route to Pharmacy Electronically, [facility], 174, cm, 10/01/19 13:58:00 EDT, Height, 57, kg, 03/19/19 14:07:00 EST, [email or web address] Start Date: 10/14/19 Status: Ordered Tylenol Extra [...] 5 Refills, Maintenance, 07/10/19 14:54:00 EDT, Tablet, [facility], 174, cm, 05/26/19 14:06:00 EST, Height, [...]
--- OUTSIDE RECORDS SUMMARY | 2022-09-19 20:59 | XMS_ITS | Continuity of Care Document ---
Author Name Unknown Organization [facility] Trevor lt Address [address] [place] [address]- Care Team Providers Care Train Controller Name Role Phone Mike Kruse MD Primary Care Physician [facility]counter [facility] Date(s): 05/20/21 - 06/19/21 [facility] Adult [address] [place] [address]- Allergies, Adverse Reactions, Alerts Substance Reaction Severity [...] 2 Refills, Maintenance, 06/09/21 16:40:00 EST, Solution, [facility], Partial fill upon patient request if the prescription is for a schedule II opioid drug., 180, cm, ... Start Date: 06/09/21 Status: Ordered amLODIPine 5 mg oral tablet 5 mg, 1, tablet, By Mouth, Daily, # 90 tablet, Refills 1, Tot. Refills 1, Soft Stop, 04/12/21 8:59:00 EST, Route to Pharmacy Electronically, [facility], 174, cm, 03/22/21 13:58:00 EST, Height Start Date: 04/12/21 Status: Ordered Aspirin Low Dose 81 mg oral delayed release tablet 1 tablet, By Mouth, Daily, # 30 tablet, 11 Refills, [facility], 180, cm, 05/03/21 9:32:00EST, Height, 77, kg, 04/20/21 15:47:00 EST, Dry Weight Start Date: 05/06/21 Status: Ordered Combivent Respimat 20 mcg-100 mcg/inh inhalation aerosol 1 puffs, Inhalation, 4 times a day, PRN NEEDED FOR WHEEZING OR SHORTNESS OF BREATH, # 4 Gm, 5 Refills, Maintenance, 05/10/21 11:08:00 EST, [facility], 30, 1 puffs Inhalation 4 times a day,PRN: NEEDED FOR WHEEZING OR SHORTNESS OF BREATH,... Start Date: 05/10/21 Status: Ordered fluticasone 50 mcg/inh nasal spray See Instructions, USE 1 SPRAY IN EACH NOSTRIL TWICE A DAY, # 16 Gm, 5 Refills, [facility], 30, USE 1 SPRAY IN EACH NOSTRIL [...] 07/12/20 14:44:00 EDT, Route to Pharmacy Electronically, [facility], 174, cm,07/12/20 14:32:00 EDT, Height, 57, kg, 03/19/19 14:... Start Date: 07/12/20 Status: Ordered montelukast 10 mg oral tablet 1, tablet, By Mouth, Daily at bedtime, # 30 tablet, Refills 5, Route to Pharmacy Electronically, [facility], 174, cm, 03/22/21 13:58:00 EST, Height Start Date: 04/07/21 Status: Ordered Nebulizer/Compressor See Instructions, # 1 each, Maintenance, Use up to qid Dx. copd Include tubing and mouthpiece, 04/29/21 14:42:00 EST, Supply Start Date: 04/29/21 Status: Ordered pravastatin 40 mg oral tablet 1 tablet = 40 mg, By Mouth, Daily, # 90 tablet, 1 Refills, Maintenance, 05/10/21 10:26:00 EST, Tablet, [facility], 180, cm, 05/03/21 9:32:00 EST, Height, [...] 0 Refills, Maintenance, 04/22/21 10:45:00 EST, Tablet, [facility], Partial fill upon patien... Start Date: 04/22/21 Status: Ordered ProAir HFA 90 mcg/inh inhalation aerosol with adapter 2, puffs, Inhalation, Every 6 hours, PRN, # 8.5 Gm, Refills 6, Route to Pharmacy Electronically, NCPDP_[id number], [facility], 174, cm, 04/14/21 14:32:00 EST, Height [...] Inhalation, Daily, # 4 Gm, 5 Refills, [facility], 180, cm, 05/03/21 9:32:00 EST,Height, 77, kg, 04/20/21 15:47:00 EST, Dry Weight Start Date: 05/05/21 Status: Ordered Symbicort 160mcg/4.5mcg Inhaler 2, puffs, Inhalation, 2 times a day, # 10.2 Gm, Refills 10, Route to Pharmacy Electronically, NCPDP_[id number], [facility], 180, cm, 05/03/21 9:32:00 EST, Height, 77, kg, 04/20/21 15:47:00 EST, Dry Weight Start Date: 05/06/21 Status: Ordered tamsulosin 0.4 mg oral capsule 1, capsule, By Mouth, Daily, # 30 capsule, Refills 5, [facility], 174, cm, 03/15/21 10:16:00 EST, Height, 57, kg, 03/19/19 14:07:00 EST, Dry Weight Start Date: 03/15/21 Status: Ordered traZODone 50 mg oral tablet 100 mg, 2, tablet, By Mouth, Daily at bedtime, # 60 tablet, Refills 11, Tot. Refills 11, Maintenance, 07/12/20 14:43:00 EDT, Route to Pharmacy Electronically, [facility], 174, cm, 07/12/20 14:32:00 EDT, Height, [...]
--- OUTSIDE RECORDS SUMMARY | 2022-09-19 20:59 | XMS_ITS | Continuity of Care Document ---
Author Name Unknown Organization [facility] Trevor Address [address] [place] [id number]- Care Team Providers Care Compensation Adjuster Name Role Phone Mike Kruse MD Primary Care Physician Encounter [facility] [place] [facility] Date(s): 08/02/21 - 08/09/21 [facility] Adult [address] [place] [address]- Encounter Diagnosis Cough(Discharge Diagnosis) - 08/02/21 COPD, moderate(Discharge Diagnosis) - 08/02/21 Attending Physician: Jessi Perkins Allergies, Adverse Reactions, Alerts Substance Reaction Severity [...] 11 Refills, Maintenance, 07/15/21 15:49:00 EDT, Solution, [facility], Partial fill upon patient request if the prescription is for a schedule II opioid drug., 180, cm, 04... Start Date: 07/15/21 Status: Ordered amLODIPine 5 mg oral tablet 5 mg, 1, tablet, By Mouth, Daily, # 90 tablet, Refills 1, Tot. Refills 1, Soft Stop, 04/12/21 8:59:00 EST, Route to Pharmacy Electronically, [facility], 174, cm, 03/22/21 13:58:00 EST, Height Start Date: 04/12/21 Status: Ordered Aspirin Low Dose 81 mg oral delayed release tablet 1 tablet, By Mouth, Daily, # 30 tablet, 11 Refills, [facility], 180, cm, 05/03/21 9:32:00EST, Height, 77, kg, 04/20/21 15:47:00 EST, Dry Weight Start Date: 05/06/21 Status: Ordered Dulcolax Stool Softener 100 mg oral capsule 1 capsule = 100 mg, By Mouth, 2 times a day, # 60 capsule, 11 Refills, Maintenance, 07/26/21 14:09:00 EDT, Capsule, [facility], Partial fill upon patient request if the prescription is for a schedule II opioid drug., 180, cm, 07/15/21 15:35:... Start Date: 07/26/21 Stop Date: 07/21/22 Status: Ordered fluticasone 50 mcg/inh nasal spray See Instructions, USE 1 SPRAY IN EACH NOSTRIL TWICE A DAY, # 16 Gm, 5 Refills, [facility], 30, USE 1 SPRAY IN EACH NOSTRIL TWICE A DAY, 180, cm, 05/03/21 9:32:00 EST, Height, 77, kg, 04/20/21 15:47:00 EST, Dry Weight Start Date: 05/10/21 Status: Ordered losartan 100 mg oral tablet 1 tablet, By Mouth, Daily, # 30 tablet, 5 Refills, Maintenance, 07/05/21 11:52:00 EDT, [facility], 180, cm, 06/27/21 12:02:00 EDT, Height, 77, kg, 04/20/21 15:47:00 EST, Dry Weight Start Date: 07/05/21 Status: Ordered Medrol Dosepak 4 mg oral tablet 1 pack/packet, By Mouth, Daily, for 6 days, as directed on package labeling, # 21 tablet, 5 Refills, Acute 09/07/21 15:11:00 EDT, 08/02/21 15:11:00 EDT, Tablet, [facility], Partial fill upon patient request if the prescription is for a sched... Start Date: 08/02/21 Stop Date: 09/07/21 Status: Ordered Metoprolol Succinate ER 50 mg oral tablet, extended release 1 tablet, By Mouth, Daily, INSTR:DO NOT CRUSH OR CHEW, # 30 tablet, 5 Refills, [facility], 180, cm, 07/15/21 15:35:00 EDT, Height, 77, kg, 04/20/21 15:47:00 EST, Dry Weight Start Date: 07/29/21 Status: Ordered MiraLax oral powder for reconstitution = 17 Gm, By Mouth, 2 times a day, dissolve in water before taking, # 527 Gm, 11 Refills, Maintenance, 07/26/21 14:09:00 EDT, REC Powder, [facility], Partial fill upon patient request if theprescription is for a schedule II opioid drug., 17... Start Date: 07/26/21 Status: Ordered montelukast 10 mg oral tablet 1, tablet, By Mouth, Daily at bedtime, # 30 tablet, Refills 5, Route to Pharmacy Electronically, [facility], 174, cm, 03/22/21 13:58:00 EST, Height [...] Refills, Maintenance, 07/15/21 15:48:00 EDT, CR Tablet, [facility], Partial fill upon patient request if the prescription is for a schedule II opioid drug., 180, cm, 07/15/21 15:35:00 EDT, H... Start Date: 07/15/21 Stop Date: 07/10/22 Status: Ordered pravastatin 40 mg oral tablet 1 tablet = 40 mg, By Mouth, Daily, # 90 tablet, 1 Refills, Maintenance, 05/10/21 10:26:00 EST, Tablet, [facility], 180, cm, 05/03/21 9:32:00 EST, Height, 77, kg, 04/20/21 15:47:00 EST, Dry Weight Start Date: 05/10/21 Status: Ordered ProAir HFA 90 mcg/inh inhalation aerosol with adapter 2, puffs, Inhalation, Every 6 hours, PRN, # 8.5 Gm, Refills 6, Route to Pharmacy Electronically, NCPDP_[id number], [facility], 174, cm, 04/14/21 14:32:00 EST, Height Start Date: 04/18/21 Status: Ordered Spiriva Respimat 1.25 mcg/inh inhalation aerosol 2 puffs, Inhalation, Daily, # 4 Gm, 5 Refills, [facility], 180, cm, 05/03/21 9:32:00 EST,Height, 77, kg, 04/20/21 15:47:00 EST, Dry Weight Start Date: 05/05/21 Status: Ordered Symbicort 160mcg/4.5mcg Inhaler 2, puffs, Inhalation, 2 times a day, # 10.2 Gm, Refills 10, Route to Pharmacy Electronically, NCPDP_[id number], [facility], 180, cm, 05/03/21 9:32:00 EST, Height, 77, kg, 04/20/21 15:47:00 EST, Dry Weight Start Date: 05/06/21 Status: Ordered tamsulosin 0.4 mg oral capsule 1, capsule, By Mouth, Daily, # 30 capsule, Refills 5, [facility], 174, cm, 03/15/21 10:16:00 EST, Height, 57, kg, 03/19/19 14:07:00 EST, Dry Weight Start Date: 03/15/21 Status: Ordered traZODone 50 mg oral tablet 100 mg, 2, tablet, By Mouth, Daily at bedtime, # 60 tablet, Refills 5, Tot. Refills 5, Maintenance,08/05/21 10:43:00 EDT, Route to Pharmacy Electronically, [facility], 180, cm, 08/02/21 15:00:00 EDT, Height, 77, kg, 04/20/21 15:47:00 EST, D... Start Date: 08/05/21 Status: Ordered venlafaxine 37.5 mg oral capsule, extended release 37.5 mg, 1, capsule, By Mouth, Daily, # 30 capsule, Refills 0, Tot. Refills 0, Maintenance, 06/27/21 13:03:00 EDT, Route to Pharmacy Electronically, [facility], Partial fill upon patient request if [...] Cl inical Service Informant Cough Discharge Diagnosis 08/02/21 COPD, moderate Discharge Diagnosis 08/02/21 Vital Signs Most recent to oldest [Reference Range]: 1 Height 180 cm (08/02/21 3:00 PM) Weight 68.2 kg (08/02/21 3:00 PM) Body Mass Index [18.5-24.99] 21.05 (08/02/21 3:00 PM) Weight Obtained Via Standing scale (08/02/21 3:00 PM) Social History Social History Type Response Smoking Status 5-9 cigarettes (betw een 1/4 to 1/2 pack)/day in last 30 days entered on: 05/26/19 Sex
--- OUTSIDE RECORDS SUMMARY | 2022-09-19 20:59 | XMS_ITS | Continuity of Care Document ---
Author Name Unknown Organization [facility] Trevor lt Address [address] [place] [address]- Care Team Providers Care Corporate Strategy Intern Name Role Phone Mike Tristan MD Primary Care Physician [phone] Encounter [facility] Date(s): 12/09/19 - 01/08/20 [facility] Adult [address] [place] [address]- [facility] Allergies, Adverse Reactions, Alerts Substance Reaction [...] 12:49:00 EDT, Aerosol, Route to Pharmacy Electronically, NCPDP_[id number], [facility], 174, cm, 10/01/19 13:58:00 EDT, Height, 57, kg, 03/19... Start Date: 11/17/19 Status: Ordered amLODIPine 5 mg oral tablet 5 mg, 1, tablet, By Mouth, Daily, # 90 tablet, Refills 3, Tot. Refills 3, Soft Stop, 02/10/19 13:40:35 EDT, Route to Pharmacy Electronically, NCPDP_[id number], [facility] [id number] [facility] Start Date: 02/10/19 Stop Date: 06/10/19 Status: Ordered aspirin 81 mg oral tablet 1 tablet = 81 mg, By Mouth, Daily, PER DR TRISTAN, # 30 tablet, 5 Refills, Maintenance, 10/13/19 13:42:00 EDT, Tablet, [facility], 174, cm, 10/01/19 13:58:00 EDT, Height, 57, kg, 03/19/19 14:07:00 EST, Dry Weight Start Date: 10/13/19 Status: Ordered Combivent Respimat 20 mcg-100 mcg/inh inhalation aerosol 1 puffs, Inhalation, 4 times a day, PRN Wheezing/Shortness of Breath, # 1 each, 0 Refills, Maintenance, 06/12/19 8:06:00 EST, Aerosol, [facility], 1 puffs Inhalation 4 times a [...] Maintenance, 10/12/2012:42:00 EDT, Route to Pharmacy Electronically, [facility], 174, cm, 10/01/19 13:58:00 EDT, Height, [...] 10/14/19 8:46:00 EDT, Route to Pharmacy Electronically, [facility], 174, cm, 10/01/19 13:58:00 EDT, Height, 57, kg, 03/19/19 14:07:... Start Date: 10/14/19 Status: Ordered Nasacort Allergy 24HR 55 mcg/inh nasal spray 2 sprays, Nares, Both, Daily, # 3 each, 0 Refills, Maintenance, 01/08/20 14:50:00 EDT, [facility], 2 sprays Nares, Both Daily, 174, [...] 10/13/19 13:42:00 EDT, Route to Pharmacy Electronically, [facility], 174, cm, 10/01/19 13:58:00 EDT, Height, 57, kg, 12... Start Date: 10/13/19 Status: Ordered Spiriva HandiHaler 18 mcg inhalation capsule 1 capsule = 18 mcg, Inhalation, Daily, use two inhalations of one capsule for each dose, # 30 capsule, 6 Refills, Maintenance, 07/10/19 14:54:00 EDT, [facility], 174, cm, 05/26/19 14:06:00 EST, Height, 57, kg, 03/19/19 14:07:00 EST, Dry Weight Start Date: 07/10/19 Stop Date: 02/05/20 Status: Ordered traZODone 50 mg oral tablet 100 mg, 2, tablet, By Mouth, Daily at bedtime, # 60 tablet, Refills 5, Tot. Refills 5, Maintenance,01/06/20 15:12:00 EDT, Route to Pharmacy Electronically, [facility], 174, cm, 10/01/19 13:58:00 EDT, Height, [...] 5 Refills, Maintenance, 01/06/20 15:11:00 EDT, Tablet, [facility], 174, cm, 10/01/19 13:58:00 EDT, Height, [...]
--- OUTSIDE RECORDS SUMMARY | 2022-09-19 20:59 | XMS_ITS | Continuity of Care Document ---
Author Name Unknown Organization [facility] ter Address [address] [place] [address]- Care Team Providers Care Corrections Identification Technician Name Role Phone Mike Tristan MD Primary Care Physician [phone] Encounter [facility] Date(s): 05/26/19 - 05/26/[address] [address]- [facility] Attending Physician: Mike Tristan MD Allergies, Adverse [...] 02/10/19 13:40:35 EDT, Route to Pharmacy Electronically, COPDP_[id number], [facility] [address] [facility] Start Date: 02/10/19 Stop Date: 06/10/19 Status: Ordered aspirin 81 mg oral tablet 1 tablet = 81 mg, By Mouth, Daily, PER DR TRISTAN, # 30 tablet, 5 Refills, Maintenance, 04/30/19 10:28:00 EST, Tablet, [facility], 174, cm, 03/19/19 14:40:00 EST, Height, [...] Maintenance, 208:38:00 EST, Route to Pharmacy Electronically, [facility], 174, cm, 03/19/19 14:40:00 EST, Height, [...] 04/30/19 10:39:00 EST, Route to Pharmacy Electronically, [facility], 174, cm, 03/19/19 14:40:00 EST, Height, [...] 04/20/19 8:38:00 EST, Route to Pharmacy Electronically, [facility],174, cm, 03/19/19 14:40:00 EST, Height, 57, [...] Maintenance,04/30/19 10:39:00 EST, Route to Pharmacy Electronically, [facility], 174, cm, 03/19/19 14:40:00 EST, Height, [...] 5 Refills, Maintenance, 04/20/19 8:38:00 EST, Tablet, [facility], 174, cm, 03/19/19 14:40:00 EST, Height, [...]
--- OUTSIDE RECORDS SUMMARY | 2022-09-19 20:59 | XMS_ITS | Continuity of Care Document ---
Author Name Unknown Organization [facility] Trevor lt Address [address] [place] [address]- Care Team Providers Care Military Source Operations Specialist Name Role Phone Mike Kruse MD Primary Care Physician Encounter [facility] [place] [place] Date(s): 01/20/22 - 01/27/22 [facility] Adult [address] [place] [address]- Attending Physician: Mike Kruse MD Allergies, Adverse Reactions, Alerts Substance Reaction Severity Status lisinopril Atenolol Trisha norvegensis Active cloNIDine Active Immunizations Given and Recorded Vaccine Date Status Refusal Reason [id number] 12y+ bivalent booster vax 1 01/20/22 Given [...] tetanus/diphtheria/pertussis, acel(Tdap) 04/01/09 Recorded 1Result Comment: [facility] [id number] 2Location History: [facility] 3Result Comment: [11/22/2016] [facility] 4Result Comment: [03/20/2016] [facility] Medications albuterol 0.083% inhalation solution 3 mL = 2.5 mg, Inhalation, Every 6 hours, PRN for wheezing, # 60 each, 5 Refills, Maintenance, 10/28/21 14:18:00 EDT, Solution, [facility]/pharmacy #[id number], 165, cm, 10/28/21 4:51:00 EDT, Height, 60.5, kg, 10/26/21 13:16:00 EDT, Dry Weight Start Date: 10/28/21 Status: Ordered amLODIPine 5 mg oral tablet 5 mg, 1, tablet, By Mouth, Daily, # 90 tablet, Refills 1, Tot. Refills 1, Soft Stop, 10/19/21 9:10:00 EDT, Route to Pharmacy Electronically, [facility]/pharmacy #[id number], 180, cm, 09/26/21 10:49:00 EDT, Height, 77, kg, 04/20/21 15:47:00 EST, Dry Weight Start Date: 10/19/21 Status: Ordered Aspirin Low Dose 81 mg oral delayed release tablet 1 tablet, By Mouth, Daily, # 30 tablet, 11 Refills, 10/19/21 9:10:00 EDT, [facility]/pharmacy #[id number], 180, cm, 09/26/21 10:49:00 EDT, Height, 77, kg, 04/20/21 15:47:00 EST, Dry Weight Start Date: 10/19/21 Status: Ordered Augmentin 875 mg-125 mg oral tablet 1 tablet, By Mouth, Every 12 hours, for 10 days, # 20 tablet, 0 Refills, Acute 01/30/22 14:13:00 EDT, 01/20/22 14:13:00 EDT, Tablet, [facility]/pharmacy #[id number], Partial fill upon patient request if the prescription is for a schedule II opioid drug., 162, cm,... Start Date: 01/20/22 Stop Date: 01/30/22 Status: Ordered Breo Ellipta 200 mcg-25 mcg/inh [...] each, 5 Refills, Maintenance, 12/19/21 15:27:00 EDT, [facility], 30, USE 1 SPRAY IN EACH NOSTRIL TWICE A DAY, 162, cm, 12/16/21 14:39:00 EDT, Height, 59.5, kg, 12/16/21 0:28:00... Start Date: 12/19/21 Status: Ordered guaiFENesin 400 mg oral tablet 1 tablet = 400 mg, By Mouth, 4 times a day, # 120 tablet, 5 Refills, Maintenance, 10/28/21 14:19:00EDT, Tablet, [facility]/pharmacy #1230, 165, cm, 10/28/21 4:51:00 [...] tablet, 4 Refills, Maintenance, 12/23/21 13:25:00 EDT, [facility], 162, cm, 12/16/21 14:39:00 EDT, Height, 59.5, kg, 12/16/21 0:28:00 EDT, Dry Weight Start Date: 12/23/21 Status: Ordered magnesium oxide 400 mg oral tablet 1 tablet, By Mouth, Daily, # 30 tablet, 6 Refills, Maintenance, 10/19/21 9:10:00 EDT, [facility]/pharmacy #1230, 180, cm, 09/26/21 10:49:00 EDT, Height, 77, kg, 04/20/21 15:47:00 EST, Dry Weight Start Date: 10/19/21 Stop Date: 10/19/21 Status: Ordered Metoprolol Succinate ER 50 mg oral tablet, extended release 1 tablet, By Mouth, Daily, INSTR:DO NOT CRUSH OR CHEW, # 30 tablet, 5 Refills, 10/19/21 9:10:00 EDT, [facility]/pharmacy #1230, 180, cm, 09/26/21 10:49:00 EDT, Height, 77, kg, 04/20/21 15:47:00 EST, Dry Weight Start Date: 10/19/21 Status: Ordered MiraLax oral powder for reconstitution = 17 Gm, By Mouth, 2 times a day, dissolve in water before taking, # 527 Gm, 11 Refills, Maintenance, 10/19/21 9:10:00 EDT, REC Powder, [facility]/pharmacy #1230, Partial fill upon patient request if the prescription is for a schedule II opioid drug., 17 Gm... Start Date: 10/19/21 Status: Ordered montelukast 10 mg oral tablet See Instructions, TAKE 1 TABLET BY MOUTH EVERY DAY AT BEDTIME, # 30 tablet, Refills 11, Tot. Refills 11, Maintenance, 01/20/22 14:03:00 EDT, Instructions Replace Required Details, Route to Pharmacy Electronically, [facility]/pharmacy #1230, 162, cm, 01/20/22... Start Date: 01/20/22 Status: Ordered omeprazole 20 mg oral delayed release tablet 1 tablet = 20 mg, By Mouth, Daily, # 30 tablet, 11 Refills, Maintenance, 07/10/22 15:48:00 EDT, CR Tablet, [facility]/pharmacy #1230, Partial fill upon patient request if the prescription is for a schedule II opioid drug., 180, cm, 09/26/21 10:49:00 EDT, Hei... Start Date: 07/10/22 Stop Date: 07/05/23 Status: Ordered Plavix 75 mg oral tablet 75 mg, 1, tablet, By Mouth, Daily, # 90 tablet, Refills 1, Tot. Refills 1, Maintenance, 11/18/21 16:53:00 EDT, Route to Pharmacy Electronically, [facility]/pharmacy #1230, Partial fill upon patient request if the prescription is for a schedule II opioid drug... Start Date: 11/18/21 Status: Ordered pravastatin 40 mg oral tablet See Instructions, TAKE 1 TABLET BY MOUTH EVERY DAY, # 30 tablet, 5 Refills, Maintenance, 12/19/21 15:29:00 EDT, [facility], 162, cm, 12/16/21 14:39:00 EDT, Height, 59.5, kg, 12/16/21 0:28:00 EDT, Dry Weight Start Date: 12/19/21 Status: Ordered ProAir HFA 90 mcg/inh inhalation aerosol with adapter 2, puffs, Inhalation, Every 6 hours, PRN, # 8.5 Gm, Refills 1, Tot. Refills 1, 12/13/21 12:40:00 EDT, Route to Pharmacy Electronically, [id number], [facility],162, cm, 12/13/21 4:46:00 EDT, Height, 60.3, kg, 08... Start Date: 12/13/21 Status: Ordered riboflavin 400 mg oral capsule 1 capsule = 400 mg, By Mouth, Daily, # 30 capsule, 5 Refills, Maintenance, 10/19/21 9:10:00 EDT, [facility]/pharmacy #1230, Partial fill upon patient request if the prescription is for a schedule II opioid drug., 180, cm, 09/26/21 10:49:00 EDT, Height, 77, k... Start Date: 10/19/21 Status: Ordered SEROquel 25 mg oral tablet 25 mg, 1, tablet, By Mouth, Daily at bedtime, # 30 tablet, Refills 5, Tot. Refills 5, Maintenance, 10/28/21 14:23:00 EDT, Route to Pharmacy Electronically, [facility]/pharmacy #1230, 165, cm, 10/28/21 4:51:00 EDT, Height, 60.5, kg, 10/26/21 13:16:00 EDT, Dry... Start Date: 10/28/21 Status: Ordered Spiriva Respimat 1.25 mcg/inh inhalation aerosol 2 puffs, Inhalation, Daily, # 4 Gm, 5 Refills, 10/19/21 9:10:00 EDT, [facility]/pharmacy #1230, 180, cm, 09/26/21 10:49:00 EDT, Height, 77, kg, 04/20/21 15:47:00 EST, Dry Weight Start Date: 10/19/21 Status: Ordered Symbicort 160mcg/4.5mcg Inhaler 2, puffs, Inhalation, 2 times a day, # 10.2 Gm, Refills 10, Tot. Refills 10, 10/19/21 9:10:00 EDT, Route to Pharmacy Electronically, [id number], [facility]/pharmacy #1230, 180, cm,09/26/21 10:49:00 EDT, Height, 77, kg, 04/20/21 15:... Start Date: 10/19/21 Status: Ordered tamsulosin 0.4 mg oral capsule 1, capsule, By Mouth, Daily, # 30 capsule, Refills 4, Tot. Refills 4, Maintenance, 10/19/21 9:10:00EDT, Route to Pharmacy Electronically, [facility]/pharmacy #1230, 180, cm, 09/26/21 10:49:00 EDT, Height, 77, kg, 04/20/21 15:47:00 EST, Dry Weight Start Date: 10/19/21 Status: Ordered venlafaxine 37.5 mg oral capsule, extended release 37.5 mg, 1, capsule, By Mouth, Daily, # 30 capsule, Refills 1, Tot. Refills 1, Maintenance, 10/19/21 9:10:00 EDT, [facility] fill upon patient request if the prescription is for a schedule II opioid d... Start Date: 10/19/21 Status: Ordered Problem List Condition Confirmation Course [...] recent to oldest [Reference Range]: 1 Height 162 cm (01/20/22 1:48 PM) Oxygen Saturation [94-100 %] 99 % (01/20/22 1:48 PM) Pulse Rate [55-90 bpm] 90 bpm (01/20/22 1:48 PM) Blood Pressure [90-138/55-84 mm Hg] 127/ 78mm Hg (01/20/22 1:48 PM) Mode of Delivery (Oxygen) Room air (01/20/22 1:48 PM) Blood pressure sites Arm, left (01/20/22 1:48 PM) Social History Social History Type Response Smoking Status Former smoker, quit more than 30 days ago entered on: 09/26/21 Sex Patient Care team information Personnel Name: Mike Kruse MD Address: Address: [address] [place] [id number]-
--- OUTSIDE RECORDS SUMMARY | 2022-09-19 20:59 | XMS_ITS | Continuity of Care Document ---
Author Name Unknown Organization [facility] Trevor Address [address] [place] [address]- Care Team Providers Care Precipitator Name Role Phone Aixa BERNABE, Mike Bennett Primary Care Physician [facility] Date[facility]s): 09/29/19 - 10/29/19 [facility] Adult [address] [place] [address]- [facility] Attending Physician: Mirtha HOOD, Rachell Bennett Allergies, [...] 02/10/19 13:40:35 EDT, Route to Pharmacy Electronically, [id number]_[id number], [facility] - [address] [place] [address] Start Date: 02/10/19 Stop Date: 06/10/19 Status: Ordered aspirin 81 mg oral tablet 1 tablet = 81 mg, By Mouth, Daily, PER DR TRISTAN, # 30 tablet, 5 Refills, Maintenance, 10/13/19 13:42:00 EDT, Tablet, [facility], 174, cm, 10/01/19 13:58:00 EDT, Height, 57, kg, 03/19/19 14:07:00 EST, Dry Weight Start Date: 10/13/19 Status: Ordered Combivent Respimat 20 mcg-100 mcg/inh inhalation aerosol 1 puffs, Inhalation, 4 times a day, PRN Wheezing/Shortness of Breath, # 1 each, 0 Refills, Maintenance, 06/12/19 8:06:00 EST, Aerosol, [facility], 1 puffs Inhalation 4 times [...] Maintenance, 10/12/2012:42:00 EDT, Route to Pharmacy Electronically, [facility], 174, cm, 10/01/19 13:58:00 EDT, [...] 12/28/19 14:37:00 EDT, 10/29/19 14:37:00 EDT, Tablet, [facility], 174, cm, 10/01/19 13:58:00 EDT, Height, 57, kg, 03/19/19 14:07:00 EST,... Start Date: 10/29/19 Stop Date: 12/28/19 Status: Ordered metoprolol 50 mg oral tablet, extended release 50 mg, 1, tablet, By Mouth, Daily, do not crush or chew, # 30 tablet, Refills 2, Tot. Refills 2, Maintenance, 10/14/19 8:46:00 EDT, Route to Pharmacy Electronically, [facility], 174, cm, 10/01/19 13:58:00 EDT, Height, [...] 10/13/19 13:42:00 EDT, Route to Pharmacy Electronically, [facility], 174, cm, 10/01/19 13:58:00 EDT, Height, 57, kg, 12... Start Date: 10/13/19 Status: Ordered Spiriva HandiHaler 18 mcg inhalation capsule 1 capsule = 18 mcg, Inhalation, Daily, use two inhalations of one capsule for each dose, # 30 capsule, 6 Refills, Maintenance, 07/10/19 14:54:00 EDT, [facility], 174, cm, 05/26/19 14:06:00 EST, Height, 57, kg, 03/19/19 14:07:00 EST, Dry Weight Start Date: 07/10/19 Stop Date: 02/05/20 Status: Ordered traZODone 50 mg oral tablet 100 mg, 2, tablet, By Mouth, Daily at bedtime, # 60 tablet, Refills 2, Tot. Refills 2, Maintenance,10/14/19 8:46:00 EDT, Route to Pharmacy Electronically, [facility], 174, cm, 10/01/19 13:58:00 EDT, Height, 57, kg, 03/19/19 14:07:00 EST, Start Date: 10/14/19 Status: Ordered Tylenol Extra [...] 5 Refills, Maintenance, 07/10/19 14:54:00 EDT, Tablet, [facility], 174, cm, 05/26/19 14:06:00 EST, Height, [...]
--- OUTSIDE RECORDS SUMMARY | 2022-09-19 20:59 | XMS_ITS | Continuity of Care Document ---
Author Name Unknown Organization [facility] Trevor lt Address [address] [place] [id number]- Care Team Providers Care Land Department Head Name Role Phone Mike Tristan MD Primary Care Physician [facility] 03[facility]20 - 04/11/20 [facility] Adult [address] [place] [address]- Allergies, Adverse Reactions, Alerts Substance Reaction Severity [...] 12:49:00 EDT, Aerosol, Route to Pharmacy Electronically, [id number], [facility], 174, cm, 10/01/19 13:58:00 EDT, Height, 57, kg, 03/19... Start Date: 11/17/19 Status: Ordered amLODIPine 5 mg oral tablet 5 mg, 1, tablet, By Mouth, Daily, # 90 tablet, Refills 1, Tot. Refills 1, Soft Stop, 03/23/20 11:00:00 EST, Route to Pharmacy Electronically, [facility], 174, cm, 03/01/20 11:26:00 EST, Height, [...] Refills, Soft Stop, 03/01/20 12:01:00 EST, Tablet, [facility], Partial fill upon patient request, 174, cm, 03/01/20 11:26:00 EST, Height, 57, kg, 03/19/19 14:07:00 EST, Dry Weight Start Date: 03/01/20 Status: Ordered Chantix Starter Pack 0.5 mg-1 mg oral tablet 1 tablet, By Mouth, 2 times a day, as directed on package labeling, # 53 tablet, 0 Refills, Maintenance, 02/13/20 14:46:00 EDT, Tablet, [facility], 1 tablet By Mouth 2 times a day,Instr:as directed on package labeling, 174, cm, 02/13/20 14:1... Start Date: 02/13/20 Status: Ordered Combivent Respimat 20 mcg-100 mcg/inh inhalation aerosol 1 puffs, Inhalation, 4 times a day, PRN Wheezing/Shortness of Breath, # 1 each, 0 Refills, Maintenance, 03/12/20 14:48:00 EST, Aerosol, [facility], 1 puffs Inhalation 4 times a [...] Maintenance, 10/12/2012:42:00 EDT, Route to Pharmacy Electronically, [facility], 174, cm, 10/01/19 13:58:00 EDT, Height, [...] 10/14/19 8:46:00 EDT, Route to Pharmacy Electronically, [facility], 174, cm, 10/01/19 13:58:00 EDT, Height, 57, kg, 03/19/19 14:07:... Start Date: 10/14/19 Status: Ordered Nasacort Allergy 24HR 55 mcg/inh nasal spray 2 sprays, Nares, Both, Daily, # 3 each, 0 Refills, Maintenance, 01/08/20 14:50:00 EDT, [facility], 2 sprays Nares, Both Daily, 174, [...] 1 Refills, Maintenance, 03/23/20 10:59:00 EST, Tablet, [facility], 174, cm, 03/01/20 11:26:00 EST, Height, 57, kg, 03/19/19 14:07:00 EST, DryWeight Start Date: 03/23/20 Status: Ordered Singulair 10 mg oral tablet 10 mg, 1, tablet, By Mouth, Daily at bedtime, PER ARPIT PRITCHARD NP-C, # 30 tablet, Refills 5, Tot. Refills 5, Maintenance, 10/13/19 13:42:00 EDT, Route to Pharmacy Electronically, [facility], 174, cm, 10/01/19 13:58:00 EDT, Height, 57, kg, 12... Start Date: 10/13/19 Status: Ordered Spiriva HandiHaler 18 mcg inhalation capsule 1 capsule = 18 mcg, Inhalation, Daily, use two inhalations of one capsule for each dose, # 30 capsule, 5 Refills, Maintenance, 02/18/20 9:52:00 EST, [facility], 174, cm, 02/13/20 14:17:00 EDT, Height, 57, kg, 03/19/19 14:07:00 EST, Dry Weight Start Date: 02/18/20 Stop Date: 08/16/20 Status: Ordered traZODone 50 mg oral tablet 100 mg, 2, tablet, By Mouth, Daily at bedtime, # 60 tablet, Refills 5, Tot. Refills 5, Maintenance,03/08/20 9:08:00 EST, Route to Pharmacy Electronically, [facility], 174, cm, 03/01/20 11:26:00 EST, Height, [...] 5 Refills, Maintenance, 03/08/20 8:02:00 EST, Tablet, [facility], 174, cm, 03/01/20 11:26:00 EST, Height, [...]
--- OUTSIDE RECORDS SUMMARY | 2022-09-19 20:59 | XMS_ITS | Continuity of Care Document ---
Author Name Unknown Organization [facility] Trevor lt Address [address] [place] [address]- Care Team Providers Care Process Controls Technician Name Role Phone Mike Kruse MD Primary Care Physician [place] [facility] [place]14[place] 04/21/21 [facility] Adult [address] [place] [address]- Encounter Diagnosis COPD exacerbation(Discharge Diagnosis) - 04/14/21 Attending Physician: Vance Pena MD Referring Physician: Mike Kruse MD Allergies, [...] 0 Refills, Maintenance, 04/18/21 13:45:00 EST, Solution, [facility], Partial fill upon patient request if the prescription is for a schedule II opioid drug., 174, cm, 04/14... Start Date: 04/18/21 Status: Ordered amLODIPine 5 mg oral tablet 5 mg, 1, tablet, By Mouth, Daily, # 90 tablet, Refills 1, Tot. Refills 1, Soft Stop, 04/12/21 8:59:00 EST, Route to Pharmacy Electronically, [facility], 174, cm, 03/22/21 13:58:00 EST, Height Start Date: 04/12/21 Status: Ordered Combivent Respimat 20 mcg-100 mcg/inh inhalation aerosol 1 puffs, Inhalation, 4 times a day, PRN NEEDED FOR WHEEZING OR SHORTNESS OF BREATH, # 4 Gm, 11 Refills, Maintenance, 05/07/20 10:33:00 EST, [facility], 30, 1 puffs Inhalation 4 times a day,PRN: NEEDED FOR WHEEZING OR SHORTNESS OF BREATH... Start Date: 05/07/20 Status: Ordered fluticasone 50 mcg/inh nasal spray See Instructions, USE 1 SPRAY IN EACH NOSTRIL TWICE A DAY, # 16 Gm, 1 Refills, [facility], 30, USE 1 SPRAY IN EACH NOSTRIL TWICE A DAY, 174, cm, 03/15/21 10:16:00 EST, Height, 57, kg, 03/19/19 14:07:00 EST, Dry Weight Start Date: 03/15/21 Status: Ordered losartan 100 mg oral tablet 1 tablet, By Mouth, Daily, # 30 tablet, 11 Refills, Maintenance, 07/12/20 14:44:00 EDT, [facility], 174, cm, 07/12/20 14:32:00 EDT, Height, 57, kg, 03/19/19 14:07:00 EST, Dry Weight Start Date: 07/12/20 Status: Ordered metoprolol 50 mg oral tablet, extended release 50 mg, 1, tablet, By Mouth, Daily, do not crush or chew, # 30 tablet, Refills 11, Tot. Refills 11, Maintenance, 07/12/20 14:44:00 EDT, Route to Pharmacy Electronically, [facility], 174, cm,07/12/20 14:32:00 EDT, Height, 57, kg, 03/19/19 14:... Start Date: 07/12/20 Status: Ordered montelukast 10 mg oral tablet 1, tablet, By Mouth, Daily at bedtime, # 30 tablet, Refills 5, Route to Pharmacy Electronically, [facility], 174, cm, 03/22/21 13:58:00 EST, Height Start Date: 04/07/21 Status: Ordered pravastatin 40 mg oral tablet 1 tablet = 40 mg, By Mouth, Daily, # 90 tablet, 1 Refills, Maintenance, 08/24/20 15:56:00 EDT, Tablet, [facility], 174, cm, 08/17/20 13:45:00 EDT, Height, 57, kg, 03/19/19 14:07:00 EST, DryWeight Start Date: 08/24/20 Status: Ordered ProAir HFA 90 mcg/inh inhalation aerosol with adapter 2, puffs, Inhalation, Every 6 hours, PRN, # 8.5 Gm, Refills 6, Route to Pharmacy Electronically, [id number], [facility], 174, cm, 04/14/21 14:32:00 EST, Height Start Date: 04/18/21 Status: Ordered Remeron 15 mg oral tablet 1 tablet = 15 mg, By Mouth, Daily at bedtime, REPLACES ZOLOFT, # 30 tablet, 1 Refills, Maintenance,06/22/20 15:13:00 EST, Tablet, [facility], Partial fill upon patient request if the prescription is for a schedule II opioid drug., 174, cm,... Start Date: 06/22/20 Status: Ordered Spiriva Respimat 1.25 mcg/inh inhalation aerosol 2 puffs, Inhalation, Daily, # 4 Gm, 11 Refills, Maintenance, 05/25/20 13:51:00 EST, Aerosol, [facility], Partial fill upon patient request if the prescription is for a schedule II opioid drug., 174, cm, 05/07/20 10:13:00 EST, Height, 57, kg,... Start Date: 05/25/20 Status: Ordered Symbicort 160mcg/4.5mcg Inhaler 2, puffs, Inhalation, 2 times a day, # 1 each, Refills 11, Tot. Refills 11, Maintenance, 05/25/20 13:51:00 EST, Aerosol, Route to Pharmacy Electronically, [id number], [facility], 174,cm, 05/07/20 10:13:00 EST, Height, 57, [...] 07/12/20 14:43:00 EDT, Route to Pharmacy Electronically, [facility], 174, cm, 07/12/20 14:32:00 EDT, Height, [...] Clinical Service Informant COPD exacerbation Discharge Diagnosis 04/14/21 Vital Signs Most recent to oldest [Reference Range]: 1 Height 174 cm (04/14/21 2:32 PM) Pulse Rate [55-90 bpm] 72 bpm (04/14/21 2:32 PM) Blood Pressure [90-138/55-84 mm Hg] 147/ 74mm Hg *H* (04/14/21 2:32 PM) Temperature [96.8-100.4 DegF] 97.1 DegF (04/14/21 2:32 PM) Social History Social History Type Response Smoking Status 5-9 cigarettes (betw een 1/4 to 1/2 pack)/day in last 30 days entered on: 05/26/19 Sex Male
--- OUTSIDE RECORDS SUMMARY | 2022-09-19 20:59 | XMS_ITS | Continuity of Care Document ---
Author Name Unknown Organization [facility] Trevor lt Address [address] [place] [address]- Care Team Providers Care Material Expediter Name Role Phone Aixa BERNABE, Mike Bennett Primary Care Physician [phone] [facility]counter [facility] Date[facility] 07/20/21 - 08/19/21 [facility] Adult [address] [place] [address]- Allergies, Adverse Reactions, Alerts Substance Reaction Severity [...] 11 Refills, Maintenance, 07/15/21 15:49:00 EDT, Solution, [facility], Partial fill upon patient request if [...] 0 Refills, Maintenance, 08/11/21 10:25:00 EDT, Tablet, [facility], Partial fill upon [...] A DAY, # 16 Gm, 5 Refills, [facility], 30, USE 1 SPRAY IN EACH NOSTRIL TWICE A DAY, 180, cm, 05/03/21 9:32:00 EST, Height, 77, kg, 04/20/21 15:47:00 EST, Dry Weight Start Date: 05/10/21 Status: Ordered losartan 100 mg oral tablet 1 tablet, By Mouth, Daily, # 30 tablet, 5 Refills, Maintenance, 07/05/21 11:52:00 EDT, [facility], 180, cm, 06/27/21 12:02:00 EDT, Height, 77, kg, 04/20/21 15:47:00 EST, Dry Weight Start Date: 07/05/21 Status: Ordered Medrol Dosepak 4 mg oral tablet 1 pack/packet, By Mouth, Daily, for 6 days, as directed on package labeling, # 21 tablet, 5 Refills, Acute 09/07/21 15:11:00 EDT, 08/02/21 15:11:00 EDT, Tablet, [facility], Partial fill upon patient request if the prescription is for a sched... Start Date: 08/02/21 Stop Date: 09/07/21 Status: Ordered Metoprolol Succinate ER 50 mg oral tablet, extended release 1 tablet, By Mouth, Daily, INSTR:DO NOT CRUSH OR CHEW, # 30 tablet, 5 Refills, [facility], 180, cm, 07/15/21 15:35:00 EDT, Height, [...] tablet, Refills 5, Route to Pharmacy Electronically, [facility], 174, cm, 03/22/21 13:58:00 EST, Height [...] 1 Refills, Maintenance, 05/10/21 10:26:00 EST, Tablet, [facility], 180, cm, 05/03/21 9:32:00 EST, Height, 77, kg, 04/20/21 15:47:00 EST, Dry Weight Start Date: 05/10/21 Status: Ordered ProAir HFA 90 mcg/inh inhalation aerosol with adapter 2, puffs, Inhalation, Every 6 hours, PRN, # 8.5 Gm, Refills 6, Route to Pharmacy Electronically, [id number], [facility], 174, cm, 04/14/21 14:32:00 EST, Height Start Date: 04/18/21 Status: Ordered Spiriva Respimat 1.25 mcg/inh inhalation aerosol 2 puffs, Inhalation, Daily, # 4 Gm, 5 Refills, [facility], 180, cm, 05/03/21 9:32:00 EST,Height, 77, kg, 04/20/21 15:47:00 EST, Dry Weight Start Date: 05/05/21 Status: Ordered Symbicort 160mcg/4.5mcg Inhaler 2, puffs, Inhalation, 2 times a day, # 10.2 Gm, Refills 10, Route to Pharmacy Electronically, [id number], [facility], 180, cm, 05/03/21 9:32:00 EST, Height, [...] Maintenance,08/05/21 10:43:00 EDT, Route to Pharmacy Electronically, [facility], 180, cm, 08/02/21 15:00:00 EDT, Height, 77, kg, 04/20/21 15:47:00 EST, D... Start Date: 08/05/21 Status: Ordered venlafaxine 37.5 mg oral capsule, extended release 37.5 mg, 1, capsule, By Mouth, Daily, # 30 capsule, Refills 0, Tot. Refills 0, Maintenance, 06/27/21 13:03:00 EDT, Route to Pharmacy Electronically, [facility], [...]
--- OUTSIDE RECORDS SUMMARY | 2022-09-19 21:00 | XMS_ITS | Continuity of Care Document ---
Author Name Unknown Organization [facility] Address [address] [place] [address]- Care Team Providers Care It Investment/Portfolio Manager Name Role Phone Mike Kruse MD Primary Care Physician [facility] Date[facility]s): 05/04/22 - 06/03/22 [facility] Adult [address] [place] [address]- Allergies, Adverse Reactions, Alerts Substance Reaction Severity Status lisinopril Atenolol Trisha norvegensis Active cloNIDine Active Immunizations Given and Recorded Vaccine Date Status Refusal Reason [id number] 12y+ bivalent booster vax 1 01/20/22 Given [...] Given tetanus/diphtheria/pertussis, acel(Tdap) 04/01/09 Recorded 1Result Comment: [facility] [id number] 2Location History: [facility] 3Result Comment: [11/22/2016] [facility] 4Result Comment: [03/20/2016] [facility] Medications acetaminophen 325 mg oral tablet 650 mg, 2, tablet, By Mouth, Every 4 hours, PRN, # 30 tablet, Refills 0, Tot. Refills 0, Maintenance, Pain , Mild, 02/21/22 15:17:00 EST, Route to Pharmacy Electronically, [facility], Partial fill upon patient request if the prescription... Start Date: 02/21/22 Status: Ordered amLODIPine 5 mg oral tablet 1 tablet, By Mouth, Daily, # 90 tablet, 1 Refills, Maintenance, 02/09/22 12:58:00 EDT, [id number], 163, cm, 02/07/22 18:18:00 EDT, Height, 60, [...] 11 Refills, Maintenance, 04/25/22 10:31:00 EST, Tablet, [facility]acy #[id number], Partial fill upon patient request if the prescription is for a schedule II opioid drug., 163, cm, 03/30/22 10:35:00 EST, Height, 60, kg,... Start Date: 04/25/22 Status: Ordered clopidogrel 75 mg oral tablet 1, tablet, By Mouth, Daily, # 90 tablet, Refills 1, Maintenance, 05/09/22 14:00:00 EST, Route to Pharmacy Electronically, [id number], 163, cm, 03/30/22 10:35:00 EST, Height, 60, kg, 02/07/22 15:54:00 EDT, Dry Weight Start Date: 05/09/22 Status: Ordered fluticasone 50 mcg/inh nasal spray See Instructions, SPRAY 1 SPRAY INTO EACH NOSTRIL TWICE A DAY, # 48 mL, 1 Refills, Maintenance, 04/25/22 18:01:00 EST, [facility]/pharmacy #[id number], 90, SPRAY 1 SPRAY INTO [...] tablet, 3 Refills, Maintenance, 04/26/22 9:42:00 EST, [id number], 163, cm, 03/30/22 10:35:00 EST, Height, 60, [...] 90 tablet, 1 Refills,Maintenance, 04/25/22 18:03:00 EST, [facility]/pharmacy #[id number], 163, cm, 03/30/22 10:35:00 EST, [...] Replace Required Details, Route to Pharmacy Electronically, [facility]/pharmacy #[id number], 162, cm, 01/20/22... Start Date: 01/20/22 Status: Ordered Neurontin 100 mg oral capsule 100 mg, 1, capsule, By Mouth, 3 times a day, # 90 capsule, Refills 2, Tot. Refills 2, Maintenance, 03/15/22 15:34:00 EST, Route to Pharmacy Electronically, [facility]acy #[id number], Partial fill upon patient request [...] 02/21/22 15:17:00 EST, Route to Pharmacy Electronically, [facility], Partial fill upon patient [...] tablet, 1 Refills, Maintenance, 05/28/22 10:29:00 EST, [id number], 163, cm, 03/30/22 10:35:00 EST, Height, 60, kg, 02/07/22 15:54:00 EDT, Dry Weight Start Date: 05/28/22 Status: Ordered riboflavin 400 mg oral capsule 1 capsule = 400 mg, By Mouth, Daily, # 30 capsule, 5 Refills, Maintenance, 06/01/22 12:01:00 EST, [facility]/pharmacy #[id number], Partial fill upon patient request if the prescription is for a schedule II opioiddrug., 163, cm, 03/30/22 10:35:00 EST, Height, 60,... Start Date: 06/01/22 Status: Ordered SEROquel 25 mg oral tablet 25 mg, 1, tablet, By Mouth, Daily at bedtime, # 30 tablet, Refills 5, Tot. Refills 5, Maintenance, 10/28/21 14:23:00 EDT, [facility], [id number], 165, cm, 10/28/21 4:51:00 EDT, Height, 60.5, kg, 10/26/21 13:16:00 EDT, Dry... Start Date: 10/28/21 Status: Ordered Spiriva Respimat 1.25 mcg/inh inhalation aerosol 2 puffs, Inhalation, Daily, # 4 Gm, 5 Refills, 10/19/21 9:10:00 EDT, [facility]/pharmacy #[id number], 180, cm, 09/26/21 10:49:00 EDT, Height, 77, kg, 04/20/21 15:47:00 EST, Dry Weight Start Date: 10/19/21 Status: Ordered Symbicort 160mcg/4.5mcg Inhaler 2, puffs, Inhalation, 2 times a day, # 10.2 Gm, Refills 10, Tot. Refills 10, 10/19/21 9:10:00 EDT, Route to Pharmacy Electronically, [id number], [facility]/pharmacy #[id number], 180, cm,09/26/21 10:49:00 EDT, Height, 77, kg, 04/20/21 15:... Start Date: 10/19/21 Status: Ordered tamsulosin 0.4 mg oral capsule 1, capsule, By Mouth, Daily, # 30 capsule, Refills 11, Tot. Refills 11, Maintenance, 04/25/22 9:53:00 EST, [facility], [id number], 163, cm, 03/30/22 10:35:00 EST, Height, 60, kg, 02/07/22 15:54:00 EDT, Dry Weight Start Date: 04/25/22 Status: Ordered venlafaxine 37.5 mg oral capsule, extended release 1 capsule, By Mouth, Daily, # 30 capsule, 1 Refills, Maintenance, 05/29/22 11:48:00 EST, [id number], 163, cm, 03/30/22 10:35:00 EST, Height, 60, kg, 02/07/22 15:54:00 EDT, Dry Weight Start Date: 05/29/22 Status: Ordered Ventolin HFA 108 mcg/inh inhalation aerosol with adapter 2 puffs, Inhalation, Every 4 hours, PRN NEEDED FOR WHEEZING, # 18 each, 11 Refills, Maintenance,04/26/22 9:42:00 EST, [id number], 163, cm, 03/30/22 10:35:00 EST, Height, 60, [...] Team Personnel Name: Ana West RN Position: [facility] RN Member Role: Primary Care Nurse Name: Odalys Orozco RN Position: [facility] RN Member Role: Primary Care Nurse Name: Mike Kruse MD Position: [facility] Primary Care Physician Member Role: PCP Address: Address: [address] [place] [address]- Name: Maryam Valenzuela RN Position: [facility] RN Member Role: Primary Care Nurse Name: Deandre Lara LPN Position: [facility] RN Member Role: Primary Care Nurse Name: Hayden Queen RN Position: [facility] RN Member Role: Primary Care Nurse Name: Aruna Winkler RN Position: [facility] RN Member Role: Primary Care Nurse Name: Sabrina Hare RN Position: [facility] RN Member Role: Primary Care Nurse Name: Kristyn Olivo RN Position: [facility] RN Member Role: Primary Care Nurse Name: Marguerite Florentino RN Position: [facility] RN Member Role: Primary Care Nurse Care Team Related Persons Name: AMINATA SOTORA Address: home [address] [place] [address] Name: ELISA TOMPKNIS Address: [place] [address] Name: JOSE RAFAEL LI
--- OUTSIDE RECORDS SUMMARY | 2022-09-19 21:00 | XMS_ITS | Continuity of Care Document ---
Author Name Unknown Organization [facility] ter Address [address] [place] [id number]- Care Team Providers Care Deckhand Fishing Vessel Name Role Phone Mike Kruse MD Primary Care Physician [phone] [facility]counter [facility] Date(s): 06/02/22 - 07/02/[address] [address]- Attending Physician: Nisha Hernandez NP Admitting Physician: Nisha Hernandez NP Referring Physician: Nisha Hernandez NP Allergies, Adverse Reactions, Alerts Substance Reaction Severity Status lisinopril Atenolol Trisha norvegensis Active cloNIDine Active Immunizations Given and Recorded Vaccine Date Status Refusal Reason [id number] 12y+ bivalent booster vax 1 01/20/22 Given [...] toxoids (Td) 02/10/19 Given tetanus-diphtheria toxoids (Td) 10/28/19 Given zoster vaccine, inactivated 11/16/18 Recorded zoster vaccine, inactivated 11/15/18 Recorded pneumococcal 23-valent vaccine 01/20/16 Given pneumococcal 23-valent vaccine 12/29/08 Recorded pneumococcal 13-valent vaccine 05/11/14 Given tetanus/diphtheria/pertussis, acel(Tdap) 04/01/09 Recorded 1Result Comment: [facility] [id number] 2Location History: [facility] 3Result Comment: [11/22/2016] [facility] 4Result Comment: [03/20/2016] [facility] Medications acetaminophen 325 mg oral tablet 650 mg, 2, tablet, By Mouth, Every 4 hours, PRN, # 30 tablet, Refills 0, Tot. Refills 0, Maintenance, Pain , Mild, 02/21/22 15:17:00 EST, Route to Pharmacy Electronically, [facility], Partial fill upon patient request if the prescription... Start Date: 02/21/22 Status: Ordered amLODIPine 5 mg oral tablet 1 tablet, By Mouth, Daily, # 90 tablet, 1 Refills, Maintenance, 02/09/22 12:58:00 EDT, [id number], 163, cm, 02/07/22 18:18:00 EDT, Height, 60, kg, 02/07/22 15:54:00 EDT, Dry Weight Start Date: 02/09/22 Status: Ordered Aspirin Low Dose 81 mg oral delayed release tablet 1 tablet, By Mouth, Daily, # 30 tablet, 11 Refills, 10/19/21 9:10:00 EDT, [facility]/pharmacy #[id number], 180, cm, 09/26/21 10:49:00 EDT, Height, [...] 11 Refills, Maintenance, 04/25/22 10:31:00 EST, Tablet, [facility]/pharmacy #[id number], Partial fill upon patient request if the prescription is for a schedule II opioid drug., 163, cm, 03/30/22 10:35:00 EST, Height, 60, kg,... Start Date: 04/25/22 Status: Ordered clopidogrel 75 mg oral tablet 1, tablet, By Mouth, Daily, # 90 tablet, Refills 1, Maintenance, 05/09/22 14:00:00 EST, Route to Pharmacy Electronically, [id number], 163, cm, 03/30/22 10:35:00 EST, Height, 60, kg, 02/07/22 15:54:00 EDT, Dry Weight Start Date: 05/09/22 Status: Ordered fluticasone 50 mcg/inh nasal spray See Instructions, SPRAY 1 SPRAY INTO EACH NOSTRIL TWICE A DAY, # 48 mL, 1 Refills, Maintenance, 04/25/22 18:01:00 EST, [facility]/pharmacy #[id number], 90, SPRAY 1 SPRAY INTO EACH NOSTRIL TWICE A DAY, 163, cm, 03/30/22 10:35:00 EST, Height, 60, kg, 02/07/22 15:54:... Start Date: 04/25/22 Status: Ordered guaiFENesin 400 mg oral tablet 1 tablet = 400 mg, By Mouth, 4 times a day, # 120 tablet, 5 Refills, Maintenance, 10/28/21 14:19:00EDT, Tablet, [facility]/pharmacy #1230, 165, cm, 10/28/21 4:51:00 EDT, Height, [...] tablet, 3 Refills, Maintenance, 04/26/22 9:42:00 EST, [id number], 163, cm, 03/30/22 10:35:00 EST, Height, 60, kg, 02/07/22 15:54:00 EDT, Dry Weight Start Date: 04/26/22 Status: Ordered magnesium oxide 400 mg oral tablet 1 tablet, By Mouth, Daily, # 30 tablet, 6 Refills, Maintenance, 10/19/21 9:10:00 EDT, [facility]/pharmacy #[id number], 180, cm, 09/26/21 10:49:00 EDT, Height, 77, kg, 04/20/21 15:47:00 EST, Dry Weight Start Date: 10/19/21 Stop Date: 10/19/21 Status: Ordered Metoprolol Succinate ER 50 mg oral tablet, extended release See Instructions, 1 TABLET BY MOUTH DAILY,INSTR:INSTR:DO NOT CRUSH OR CHEW, # 90 tablet, 1 Refills,Maintenance, 04/25/22 18:03:00 EST, [facility]/pharmacy #[id number], 163, cm, 03/30/22 10:35:00 EST, Height, 60,kg, 02/07/22 15:54:00 EDT, Dry Weight Start Date: 04/25/22 Status: Ordered MiraLax oral powder for reconstitution = 17 Gm, By Mouth, 2 times a day, dissolve in water before taking, # 527 Gm, 11 Refills, Maintenance, 10/19/21 9:10:00 EDT, REC Powder, [facility]/pharmacy #1230, Partial fill upon patient request if [...] 03/15/22 15:34:00 EST, Route to Pharmacy Electronically, [facility]/pharmacy #[id number], Partial fill upon patient request if the prescription is for a schedule II... Start Date: 03/15/22 Status: Ordered omeprazole 20 mg oral delayed release tablet 1 tablet = 20 mg, By Mouth, Daily, # 30 tablet, 11 Refills, Maintenance, 07/10/22 15:48:00 EDT, CR Tablet, [facility]/pharmacy #1230, Partial fill upon patient request if the prescription is for a schedule II opioid drug., 180, cm, 09/26/21 10:49:00 EDT, Hei... Start Date: 07/10/22 Stop Date: 07/05/23 Status: Ordered oxyCODONE 5 mg oral tablet 5 mg, 1, tablet, By Mouth, Every 4 hours, PRN, # 15 tablet, Refills 0, Tot. Refills 0, Maintenance,Pain , Severe, 02/21/22 15:17:00 EST, Route to Pharmacy Electronically, [facility], Partial fill upon patient [...] Refills, Maintenance, 05/28/22 10:29:00 EST, [facility], 163, cm, 03/30/22 10:35:00 EST, Height, 60, kg, 02/07/22 15:54:00 EDT, Dry Weight Start Date: 05/28/22 Status: Ordered riboflavin 400 mg oral capsule 1 capsule = 400 mg, By Mouth, Daily, # 30 capsule, 5 Refills, Maintenance, 06/01/22 12:01:00 EST, [facility]acy #[id number], Partial fill upon patient request if the prescription is for a schedule II opioiddrug., 163, cm, 03/30/22 10:35:00 EST, Height, 60,... Start Date: 06/01/22 Status: Ordered SEROquel 25 mg oral tablet 25 mg, 1, tablet, By Mouth, Daily at bedtime, # 30 tablet, Refills 5, Tot. Refills 5, Maintenance, 10/28/21 14:23:00 EDT, Route to Pharmacy Electronically, [facility]/pharmacy #1230, 165, cm, 10/28/21 4:51:00 EDT, Height, 60.5, kg, 10/26/21 13:16:00 EDT, Dry... Start Date: 10/28/21 Status: Ordered Spiriva Respimat 1.25 mcg/inh inhalation aerosol 2 puffs, Inhalation, Daily, # 4 mL, 3 Refills, Maintenance, 06/28/22 8:12:00 EDT, [id number], 163, cm, 06/02/22 12:59:00 EST, Height, 60, kg, 02/07/22 15:54:00 EDT, Dry Weight Start Date: 06/28/22 Status: Ordered Symbicort 160mcg/4.5mcg Inhaler 2, puffs, Inhalation, 2 times a day, # 10.2 Gm, Refills 10, Tot. Refills 10, 10/19/21 9:10:00 EDT, Route to Pharmacy Electronically, [id number], [facility] #1230, 180, cm,09/26/21 10:49:00 EDT, Height, 77, kg, 04/20/21 15:... Start Date: 10/19/21 Status: Ordered tamsulosin 0.4 mg oral capsule 1, capsule, By Mouth, Daily, # 30 capsule, Refills 11, Tot. Refills 11, Maintenance, 04/25/22 9:53:00 EST, Route to Pharmacy Electronically, [facility] #[id number], 163, cm, 03/30/22 10:35:00 EST, Height, 60, kg, 02/07/22 15:54:00 EDT, Dry Weight Start Date: 04/25/22 Status: Ordered traZODone 50 mg oral tablet 2, tablet, By Mouth, Daily at bedtime, # 60 tablet, Refills 3, Maintenance, 06/28/22 8:12:00 EDT, Route to Pharmacy Electronically, [facility], 163, cm, 06/02/22 12:59:00 EST, Height, 60, kg, 02/07/22 15:54:00 EDT, Dry Weight Start Date: 06/28/22 Status: Ordered venlafaxine 37.5 mg oral capsule, extended release 1 capsule, By Mouth, Daily, # 30 capsule, 1 Refills, Maintenance, 05/29/22 11:48:00 EST, [facility], 163, cm, 03/30/22 10:35:00 EST, Height, 60, kg, 02/07/22 15:54:00 EDT, Dry Weight Start Date: 05/29/22 Status: Ordered Ventolin HFA 108 mcg/inh inhalation aerosol with adapter 2 puffs, Inhalation, Every 4 hours, PRN NEEDED FOR WHEEZING, # 18 each, 11 Refills, Maintenance,04/26/22 9:42:00 EST, [facility], 163, cm, 03/30/22 10:35:00 EST, Height, 60, [...] team information Care Team Personnel Name: Ana Wset RN Position: S RN Member Role: Primary Care Nurse Name: Odalys Orozco RN Position: S RN Member Role: Primary Care Nurse Name: Mike Kruse MD Position: [facility] Primary Care Physician Member Role: PCP Address: Address: [address] [place] [address] Name: Maryam Valenzuela RN Position: S RN [...] Persons Name: ENA SOTO Address: home [address] [place] [address] Name: ELISA TOMPKINS Address: [place] [address] Name: JOSE RAFAEL LI
--- OUTSIDE RECORDS SUMMARY | 2022-09-19 21:00 | XMS_ITS | Continuity of Care Document ---
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 Name Role Phone Aixa BERNABE, Mike Bennett Primary Care Physician [facility]): 03[facility]22 - 04/20/22 [facility] [place] [facility] [address] [place] [address]- Allergies, Adverse Reactions, Alerts Substance Reaction Severity Status lisinopril Atenolol Trisha norvegensis Active cloNIDine Active Immunizations Given and Recorded Vaccine Date Status Refusal Reason [id number] 12y+ bivalent booster vax 1 01/20/22 Given [...] [facility] [id number] 2Location History[facility] 3Result Comment: [11/22/2016] [facility] 4Result Comment: [03/20/2016] [facility] Medications acetaminophen 325 mg oral tablet 650 mg, 2, tablet, By Mouth, Every 4 hours, PRN, # 30 tablet, Refills 0, Tot. Refills 0, Maintenance, Pain , Mild, 02/21/22 15:17:00 EST, Route to Pharmacy Electronically, [facility], Partial fill upon patient request if [...] Refills, Maintenance, 02/09/22 12:58:00 EDT, [facility], 163, cm, 02/07/22 18:18:00 EDT, Height, 60, [...] each, 5 Refills, Maintenance, 12/19/21 15:27:00 EDT, [facility], 30, USE 1 SPRAY IN EACH [...] tablet, 4 Refills, Maintenance, 12/23/21 13:25:00 EDT, [facility], 162, cm, 12/16/21 14:39:00 EDT, Height, [...] 03/15/22 15:34:00 EST, Route to Pharmacy Electronically, [facility] #[id number], Partial fill upon patient request if the [...] 02/21/22 15:17:00 EST, Route to Pharmacy Electronically, [facility], Partial fill upon patient [...] tablet, 5 Refills, Maintenance, 12/19/21 15:29:00 EDT, [facility], 162, cm, 12/16/21 14:39:00 EDT, Height, 59.5, kg, 12/16/21 0:28:00 EDT, Dry Weight Start Date: 12/19/21 Status: Ordered ProAir HFA 90 mcg/inh inhalation aerosol with adapter 2, puffs, Inhalation, Every 6 hours, PRN, # 8.5 Gm, Refills 1, Tot. Refills 1, 12/13/21 12:40:00 EDT, Route to Pharmacy Electronically, [id number], [facility],162, cm, 12/13/21 4:46:00 EDT, Height, 60.3, kg, 08... Start Date: 12/13/21 Status: Ordered ProAir HFA 90 mcg/inh inhalation aerosol with adapter 2, puffs, Inhalation, Every 6 hours, PRN, # 8.5 Gm, Refills 0, Tot. Refills 0, Maintenance, 03/30/22 16:20:00 EST, Aerosol, Route to Pharmacy Electronically, [id number], [facility]/pharmacy #[id number], 163, cm, 03/30/22 10:35:00 [...] 10/19/21 9:10:00 EDT, Route to Pharmacy Electronically, [id number], [facility]/pharmacy #1230, 180, cm,09/26/21 10:49:00 [...] 30 capsule, 1 Refills, Maintenance, 03/31/2211:53:00 EST, [facility] 18[facility], 163, cm, 03/30/22 10:35:00 EST, Height, 60, kg, 02/07/22 15:54:00 EDT, Dry Weight Start Date: 03/31/22 Status: Ordered Ventolin HFA 108 mcg/inh inhalation aerosol with adapter 2 puffs, Inhalation, Every 4 hours, PRN for wheezing, # 18 Gm, 0 Refills, Maintenance, 03/21/22 13:25:00 EST, Aerosol, [facility]/pharmacy #[id number], Partial fill upon patient [...] shoulder Confirmed Active Tobacco abuse Confirmed Active 2016 2IMPRESSION: 1. Severe emphysema. No evidence [...] Team Personnel Name: Ana West RN Position: [facility] RN Member Role: Primary Care Nurse Name: Odalys Orozco RN Position: [facility] RN Member Role: Primary Care Nurse Name: Mike Kruse MD Position: [facility] Primary Care Physician Member Role: PCP Address: Address: [address] [place] [id number] Name: Maryam Valenzuela RN [...] Care Nurse Name: Marguerite Florentino RN Position: [facility] RN Member Role: Primary Care Nurse Care Team Related Persons Name: ENA SOTO Address: home [address] [place] [address] Name: ELISA TOMPKINS Address: [place] [address] Name: JOSE RAFAEL LI
--- NOTE | 2022-09-19 21:07 | ED.ASTHMA ---
HPI - Asthma General Chief Complaint: Asthma Stated Complaint: sob Time Seen by Provider: 09/19/22 20:59 Source: patient Mode of arrival: ambulatory Limitations: no limitations History of Present Illness HPI Narrative: patient comes to the emergency room complaining of shortness of breath for 2 days. Patient has history of COPD and asthma. Patient has been taking his inhaler and neb machine treatments without any relief. Patient denies chest pain. Related Data Previous Rx's Medication Instructions Recorded albuterol sulfate 90 mcg/actuation 2 puff inhalation Q4-6H PRN 04/21/22 aerosol inhaler (Ventolin HFA) shortness of breath or wheezing #8.5 grams prednisone 50 mg tablet 50 mg PO DAILY 4 days #4 tabs 04/21/22 Allergies Allergy/AdvReac Type Severity Reaction Status Date / Time lisinopril [LISINOPRIL] Allergy Intermediate UNKNOWN Unverified 01/01/20 14:46 Penicillins [PENICILLINS] Allergy Unknown UNKNOWN Unverified 01/01/20 14:46 UNK ABX Allergy Unknown Uncoded 01/01/20 14:46 UNK BP MED Allergy Unknown Uncoded 01/01/20 14:46 Review of Systems Review of Systems: Constitutional : No Weight loss, No Fever, No Chills, No Night Sweats, No Fatigue, No Malaise ENT/Mouth : No Hearing loss, No Ear Pain, No Nasal Congestion, No Sinus Pain, No Hoarseness, No sore throat, No Rhinorrhea, No Swallowing Difficulty Eyes: No Eye Pain, No Swelling, No Redness, No Foreign Body, No Discharge, No Vision Changes Cardiovascular : No Chest Pain, No SOB, No Dyspnea on Exertion, No Orthopnea, No Edema, No Palpitations Respiratory : Complaining of worsening cough, wheezing, shortness of breath with exertion and at rest Gastrointestinal : No Nausea, No Vomiting, No Diarrhea, No Constipation, No abdominal Pain, No Hematochezia, No Melena Genitourinary : no irregular bleeding, No Dysuria, No Urinary Frequency, No Hematuria, No Urinary Incontinence, No Urgency, No Flank Pain, No Urinary Flow Changes, No Hesitancy Musculoskeletal : No joint pain, No Myalgias, No Joint Swelling Skin : No Skin Lesions, No rash Neuro : No Weakness, No Numbness, No Paresthesias, No Loss of Consciousness, No Dizziness, No Headache Psych : No Anxiety/Panic, No Depression, No SI/HI/AH/VH, No Social Issues, Heme/Lymph: No Bruising, No Bleeding,No Lymphadenopathy Endocrine : No Polyuria, No Polydipsia, No Temperature Intolerance ON LICENSE OF [facility] Past Medical History Medical History (Updated 09/20/22 @ 01:55 by Ketty Roach MD) Asthma COPD (chronic obstructive pulmonary disease) Social History Social History Alcohol intake: never Smoked in Last 30 Days: No Use of substances other than those prescribed or required for medical reasons: No Advance Directives: No Advance Directives Information Provided: No Physical Exam Vital Signs: Vital Signs: Last Vital Signs Temp 96.8 F 09/19/22 22:00 Pulse 110 H 09/20/22 00:48 Resp 14 09/20/22 00:48 BP 146/78 H 09/20/22 00:04 Pulse Ox 91 L 09/20/22 00:04 O2 Del Method Room Air 09/20/22 00:04 Oxygen Flow Rate 6 09/19/22 20:31 BMI result Body Mass Index 24.0 Const: Other: Appearance: Alert. Oriented X3. No acute distress. Eyes: Pupils equal, round and reactive to light. ENT: Pharynx normal. Neck: Normal inspection. Neck supple. No lymph nodes noted. No crepitus CVS: Normal heart rate and rhythm. Pulses normal. Normal S1 and S2 Respiratory: [id number] respiratory distress, decreased breath sounds, minimal wheezing, tight Abdomen: Soft and nontender. No rigidity. No distention. Skin: Skin warm and dry. Normal skin color. Normal skin turgor. Extremities: No lower extremity edema. No Lacerations. No Rash Neuro: Oriented X 3. No motor deficit. No sensory deficit. Moving all extremities. No slurred speech. CN 2 through 12 grossly intact Psych: calm, cooperative, normal affect Course Course Course Narrative: - patient receiving IV fluids, Solu-Medrol, magnesium, neb treatment Medications Administered Discontinued Medications Generic Name Dose Route Start Last Admin Trade Name Freq PRN Reason Stop Dose Admin Acetaminophen 975 mg 09/19/22 21:47 09/20/22 00:53 Acetaminophen 325 Mg Tablet PO 09/19/22 21:48 975 mg ONCE ONE Administration Albuterol Sulfate 10 mg 09/19/22 21:05 09/19/22 21:21 Albuterol Sulfate (0.083%) 2.5 Mg/3 Ml Vial.Neb INHALE 09/19/22 21:06 10 mg ONCE ONE Administration Albuterol Sulfate 10 mg 09/20/22 00:35 09/20/22 00:48 Albuterol Sulfate (0.083%) 2.5 Mg/3 Ml Vial.Neb INHALE 09/20/22 00:36 10 mg ONCE ONE Administration Calcium Carbonate 1,500 mg 09/20/22 00:35 09/20/22 00:54 Calcium Carbonate 750 Mg Tab.Chew PO 09/20/22 00:36 1,500 mg ONCE ONE Administration Sodium Chloride 1,000 mls @ 999 mls/hr 09/19/22 21:05 09/19/22 22:35 Ns IVCONT 09/19/22 22:05 Infused .Q1H1M ONE Infusion Magnesium Sulfate 2 gm in 50 mls @ 25 mls/hr 09/19/22 21:09 09/19/22 23:31 Magnesium Sulfate/H2o IV 09/19/22 23:08 Infused ONCE ONE Infusion Levofloxacin 500 mg in 100 mls @ 100 mls/hr 09/20/22 00:35 09/20/22 00:54 Levaquin IV 09/20/22 01:34 100 mls/hr ONCE ONE Administration Methylprednisolone Sodium Succinate 125 mg 09/19/22 21:05 09/19/22 21:31 Methylprednisolone Sod Succ 125 Mg/2 Ml Vial IVPUSH 09/19/22 21:06 125 mg ONCE ONE Administration Medical Decision Making Medical Decision Making [facility] Narrative: - Patient has received 2 over long nebulization treatments. Although patient's oxygen is in the low 90s, patient is still very tight, gets significantly short of breath with minimal ambulation. - White blood cell count 21.8, lactic acid 1.4 -BP stable, sepsis is not suspected - I discussed the patient with Dr. Gamble, pt being admitted Admission/Observation Consideration of admission/observation: Escalation of care including admission/observation considered Consult Healthcare Provider Management of the patient was discussed with: Hospitalist Lab Data MDM Lab Attestation statement: I reviewed the patient's lab results. 09/19/22 20:43 09/19/22 20:43 Labs: Lab Results 0609/19/22 09/19/22 Range/Units 20:43 20:43 20:43 WBC 21.8 H (4.8-10.8) X10*3/uL RBC 4.21 L (4.60-5.80) X10*6/uL Hgb 13.4 L (14.0-18.0) g/dl Hct 38.5 L (42.0-52.0) % MCV 91.4 (80.0-98.0) fL MCH 31.8 (27.0-33.0) pg MCHC 34.8 (31.0-36.0) g/dl RDW 13.9 (11.0-16.0) % Plt Count 255 (160-400) X10*3/uL MPV 8.4 L (9.4-12.4) fL Immature Gran % (Auto) 0.8 H (0.0-0.4) % Neut % (Auto) 88.0 H (45-73) % Lymph % (Auto) 5.7 L (20-40) % Mckinley % (Auto) 5.4 (2-11) % Eos % (Auto) 0.0 (0-4) % Baso % (Auto) 0.1 (0-2) % Lymph # (Auto) 1.2 (1.2-4.9) X10*3/uL Mckinley # (Auto) 1.2 (0.1-1.2) X10*3/uL Eos # (Auto) 0.0 (0.0-0.4) X10*3/uL Baso # (Auto) 0.0 (0.0-0.2) X10*3/uL Abs Immat Gran (auto) 0.18 H (0.00-0.03) X10*3/uL Absolute Neuts (auto) 19.2 H (2.0-8.3) x10*3/uL Absolute Nucleated RBC 0.000 (0.0-0.012) X10*3/uL Nucleated RBC % (auto) 0.0 (0.0-0.2) /100WBC VBG pH (7.32-7.43) VBG pCO2 mmHg VBG pO2 mmHg VBG HCO3 (22-26) mmol/L VBG O2 Saturation % VBG Base Excess mmol/L Sodium 135 (135-145) mmol/L Potassium 3.7 (3.3-5.1) mmol/L Chloride 100 (96-108) mmol/L Carbon Dioxide 25 (22-29) mmol/L Anion Gap 14 (12-20) BUN 12 (9-16) mg/dL Creatinine 0.94 (0.5-1.4) mg/dL Estim Creat Clear Calc 67.3 Estimated GFR > 60 Random Glucose 97 (60-115) mg/dL Lactic Acid (0.5-2.0) mmol/L Calcium 8.9 (8.4-10.2) mg/dL Troponin I High Sens < 2.7 (<3.5-35.0) ng/L B-Natriuretic Peptide (<100) pg/mL COVID-19 ([facility]) (Negative) COVID-19 Clin Com 09/19/22 09/19/22 09/19/22 Range/Units 21:32 21:32 21:32 WBC (4.8-10.8) X10*3/uL RBC (4.60-5.80) X10*6/uL Hgb (14.0-18.0) g/dl Hct (42.0-52.0) % MCV (80.0-98.0) fL MCH (27.0-33.0) pg MCHC (31.0-36.0) g/dl RDW (11.0-16.0) % Plt Count (160-400) X10*3/uL MPV (9.4-12.4) fL Immature Gran % (Auto) (0.0-0.4) % Neut % (Auto) (45-73) % Lymph % (Auto) (20-40) % Mckinley % (Auto) (2-11) % Eos % (Auto) (0-4) % Baso % (Auto) (0-2) % Lymph # (Auto) (1.2-4.9) X10*3/uL Mckinley # (Auto) (0.1-1.2) X10*3/uL Eos # (Auto) (0.0-0.4) X10*3/uL Baso # (Auto) (0.0-0.2) X10*3/uL Abs Immat Gran (auto) (0.00-0.03) X10*3/uL Absolute Neuts (auto) (2.0-8.3) x10*3/uL Absolute Nucleated RBC (0.0-0.012) X10*3/uL Nucleated RBC % (auto) (0.0-0.2) /100WBC VBG pH (7.32-7.43) VBG pCO2 mmHg VBG pO2 mmHg VBG HCO3 (22-26) mmol/L VBG O2 Saturation % VBG Base Excess mmol/L Sodium (135-145) mmol/L Potassium (3.3-5.1) mmol/L Chloride (96-108) mmol/L Carbon Dioxide (22-29) mmol/L Anion Gap (12-20) BUN (9-16) mg/dL Creatinine (0.5-1.4) mg/dL Estim Creat Clear Calc Estimated GFR Random Glucose (60-115) mg/dL Lactic Acid 1.4 (0.5-2.0) mmol/L Calcium (8.4-10.2) mg/dL Troponin I High Sens (<3.5-35.0) ng/L B-Natriuretic Peptide 25 (<100) pg/mL COVID-19 ([facility]) Negative (Negative) COVID-19 Clin Com See Note 09/19/22 Range/Units 21:36 WBC (4.8-10.8) X10*3/uL RBC (4.60-5.80) X10*6/uL Hgb (14.0-18.0) g/dl Hct (42.0-52.0) % MCV (80.0-98.0) fL MCH (27.0-33.0) pg MCHC (31.0-36.0) g/dl RDW (11.0-16.0) % Plt Count (160-400) X10*3/uL MPV (9.4-12.4) fL Immature Gran % (Auto) (0.0-0.4) % Neut % (Auto) (45-73) % Lymph % (Auto) (20-40) % Mckinley % (Auto) (2-11) % Eos % (Auto) (0-4) % Baso % (Auto) (0-2) % Lymph # (Auto) (1.2-4.9) X10*3/uL Mckinley # (Auto) (0.1-1.2) X10*3/uL Eos # (Auto) (0.0-0.4) X10*3/uL Baso # (Auto) (0.0-0.2) X10*3/uL Abs Immat Gran (auto) (0.00-0.03) X10*3/uL Absolute Neuts (auto) (2.0-8.3) x10*3/uL Absolute Nucleated RBC (0.0-0.012) X10*3/uL Nucleated RBC % (auto) (0.0-0.2) /100WBC VBG pH 7.42 (7.32-7.43) VBG pCO2 42 mmHg VBG pO2 22 mmHg VBG HCO3 28 H (22-26) mmol/L VBG O2 Saturation < 30.0 % VBG Base Excess 3.1 mmol/L Sodium (135-145) mmol/L Potassium (3.3-5.1) mmol/L Chloride (96-108) mmol/L Carbon Dioxide (22-29) mmol/L Anion Gap (12-20) BUN (9-16) mg/dL Creatinine (0.5-1.4) mg/dL Estim Creat Clear Calc Estimated GFR Random Glucose (60-115) mg/dL Lactic Acid (0.5-2.0) mmol/L Calcium (8.4-10.2) mg/dL Troponin I High Sens (<3.5-35.0) ng/L B-Natriuretic Peptide (<100) pg/mL COVID-19 ([facility]) (Negative) COVID-19 Clin Com Radiology Impression Discussion of test interpretation with radiology: I have reviewed the radiologist's reading. Radiologist Impression: FINDINGS: Hyperexpanded lungs. Oligemia of the upper lungs consistent with emphysema. No consolidation. No pleural effusion or pneumothorax. The cardiomediastinal silhouette is within normal limits. XR/XR chest 1V IMPRESSION: No acute pulmonary disease. Emphysema. Critical Care Time Critical Care Time Critical Care Time: Yes Total Critical Care Time: 60 Attestation: I have personally provided critical care time. Time includes review of lab data, radiology results, discussion with consultants, and monitoring for potential decompensation. Intervention performed as documented. Discharge Plan Discharge Clinical Impression: Chronic lung disease Patient Disposition: Admitted As Inpatient Prescriptions: No Action prednisone 50 mg tablet 50 mg PO DAILY 4 Days Qty: 4 0RF albuterol sulfate [Ventolin HFA] 90 mcg/actuation HFA aerosol inhaler 2 puff inhalation Q4-6H PRN (Reason: shortness of breath or wheezing) Qty: 8.5 0RF
[2022-09-19 21:18] LABS: Anion Gap 14 (12-20); Blood Urea Nitrogen 12 mg/dL (9-16); Calcium 8.9 mg/dL (8.4-10.2); Carbon Dioxide 25 mmol/L (22-29); Chloride 100 mmol/L (96-108); Creatinine Clr Calc Pharmacy 67.3; Estimated Glomerular Filt Rate > 60; Glucose Random 97 mg/dL (60-115); Potassium 3.7 mmol/L (3.3-5.1); Sodium 135 mmol/L (135-145)
[2022-09-19] MEDS: Albuterol Sulfate (0.083%) 2.5 MG/3 ML VIAL.NEB 10 MG INHALE (21:21)
[2022-09-19 21:23] VITALS: PULSE 110; RESP 20; O2SAT 94
[2022-09-19 21:28] LABS: Troponin-I High Sensitivity < 2.7 ng/L (<3.5-35.0)
[2022-09-19] MEDS: Magnesium Sulfate/H2O 2 GM/50 ML PIGGYBACK IV (21:31)
[2022-09-19] MEDS: 0.9 % Sodium Chloride 1,000 ML 999 ML IVCONT (21:31)
[2022-09-19] MEDS: methylPREDNISolone Sod Succ 125 MG/2 ML VIAL IVPUSH (21:31)
[2022-09-19 21:44] LABS: VBG Base Excess 3.1 mmol/L; VBG HCO3 28 mmol/L (22-26); VBG O2 % Saturation < 30.0 %; VBG pCO2 42 mmHg; VBG pH 7.42 (7.32-7.43); VBG pO2 22 mmHg
[2022-09-19 21:49] LABS: Venous Blood Gas Refer to POC result
[2022-09-19 21:55] LABS: COVID-19 Test Negative (Negative); IDNOW Serial# BCCEAD1C
[2022-09-19 22:00] VITALS: BP 151/62; PULSE 110; RESP 21; TEMP 36; O2SAT 98
[2022-09-19 22:05] LABS: Lactic Acid 1.4 mmol/L (0.5-2.0)
[2022-09-19 22:13] LABS: B Type Natriuretic Peptide 25 pg/mL (<100)
[2022-09-20] VITALS (11 sets, daily range): BP systolic 117–179; BP diastolic 59–80; PULSE 91–110; RESP 14–27; TEMP 36.3–36.8; O2SAT 91–97
[2022-09-20] MEDS: Albuterol Sulfate (0.083%) 2.5 MG/3 ML VIAL.NEB 10 MG INHALE (00:48)
[2022-09-20] MEDS: Acetaminophen 325 MG TABLET 975 MG PO (00:53)
[2022-09-20] MEDS: Calcium Carbonate 750 MG TAB.CHEW 1500 MG PO (00:54)
[2022-09-20] MEDS: levoFLOXacin/D5W 500 MG/100 ML PIGGYBACK 100 MG IV (00:54)
--- NOTE | 2022-09-20 01:55 | P.HPHOSP_ITS ---
History of Present Illness Date of Service: 09/20/22 Chief Complaint: Dyspnea This is a 62-year-old male with pertinent history of essential hypertension, COPD not on home oxygen, mood disorder, mixed hyperlipidemia who presents to the emergency department for evaluation of dyspnea. Patient states he has been hav ing dyspnea, worse with exertion that started 2 days prior to presentation. Patient tried his home inhaler and home nebulizer but was without any relief. Also has been having chills and nonproductive cough. Patient states it has been awhile since he was admitted for exacerbation of his obstructive lung disease. He denies fever, nausea, vomiting, palpitations, chest discomfort, abdominal pain, changes in urinary or bowel habits. In the emergency department, patient continued to be dyspneic and wheezing even after multiple DuoNeb treatments. Review of Systems Constitutional: Constitutional: Reports chills, Reports fatigue and Reports malaise Cardiovascular: Cardiovascular: Reports dyspnea on exertion Respiratory: Respiratory: Reports cough, Reports dyspnea on exertion and Re ports wheezing Gastrointestinal: Gastrointestinal: Reports no additional gastrointestinal complaints Genitourinary: Genitourinary: Reports no additional male genitourinary complaints Endocrine: Endocrine: Reports fatigue Allergic/Immunologic: Allergic/Immunologic: Reports wheezing [facility] Medical History Asthma COPD (chronic obstructive pulmonary disease) Essential hypertension Mixed hyperlipidemia Mood disorder Pertinent family history: No family history of early CAD Social History Alcohol intake: never Smoked in Last 30 Days: No Use of substances other than those prescribed or required for medical reasons: No Advance Directives: No Advance Directives Information Provided: No Meds Allergies Allergy/AdvReac Type Severity Reaction Status Date / Time lisinopril [LISINOPRIL] Allergy Intermediate UNKNOWN Unverified 01/01/20 14:46 Penicillins [PENICILLINS] Allergy Unknown UNKNOWN Unverified 01/01/20 14:46 UNK ABX Allergy Unknown Uncoded 01/01/20 14:46 UNK BP MED Allergy Unknown Uncoded 01/01/20 14:46 Physical Exam Vital Signs and Narrative: Vital Signs: Last Vital Signs Temp 96.8 F 09/19/22 22:00 Pulse 110 H 09/20/22 00:48 Resp 14 09/20/22 00:48 BP 146/78 H 09/20/22 00:04 Pulse Ox 91 L 09/20/22 00:04 O2 Del Method Room Air 09/20/22 00:04 Oxygen Flow Rate 6 09/19/22 20:31 BMI result Body Mass Index 24.0 Middle-aged male lying in bed in mild distress Neck supple, no JVD Tachycardic with regular rhythm, S1-S2 heard Bilateral wheezing without crackles Abdomen soft nontender, no guarding, no rigidity Patient is awake, alert and oriented to self, place, time and person ; no focal motor deficit Psych: Normal mood No pedal edema Results Labs 09/19/22 20:43 09/19/22 20:43 Labs: Laboratory Results - last 24 hr 09/19/22 09/19/22 09/19/22 20:43 20:43 20:43 MCV 91.4 MCH 31.8 MCHC 34.8 RDW 13.9 Plt Count 255 MPV 8.4 L Immature Gran % (Auto) 0.8 H Neut % (Auto) 88.0 H Lymph % (Auto) 5.7 L [place] % (Auto) 5.4 Eos % (Auto) 0.0 Baso % (Auto) 0.1 Lymph # (Auto) 1.2 [place] # (Auto) 1.2 Eos # (Auto) 0.0 Baso # (Auto) 0.0 Abs Immat Gran (auto) 0.18 H Absolute Neuts (auto) 19.2 H Absolute Nucleated RBC 0.000 Nucleated RBC % (auto) 0.0 VBG pH VBG pCO2 VBG pO2 VBG HCO3 VBG O2 Saturation VBG Base Excess Anion Gap 14 Estim Creat Clear Calc 67.3 Estimated GFR > 60 Random Glucose 97 Lactic Acid Calcium 8.9 Troponin I High Sens < 2.7 B-Natriuretic Peptide COVID-19 ([facility]) COVID-19 Clin Com 09/19/22 09/19/22 09/19/22 21:32 21:32 21:32 MCV MCH MCHC RDW Plt Count MPV Immature Gran % (Auto) Neut % (Auto) Lymph % (Auto) [place] % (Auto) Eos % (Auto) Baso % (Auto) Lymph # (Auto) [place] # (Auto) Eos # (Auto) Baso # (Auto) Abs Immat Gran (auto) Absolute Neuts (auto) Absolute Nucleated RBC Nucleated RBC % (auto) VBG pH VBG pCO2 VBG pO2 VBG HCO3 VBG O2 Saturation VBG Base Excess Anion Gap Estim Creat Clear Calc Estimated GFR Random Glucose Lactic Acid 1.4 Calcium Troponin I High Sens B-Natriuretic Peptide 25 COVID-19 ([facility]) Negative COVID-19 Clin Com See Note 09/19/22 21:36 MCV MCH MCHC RDW Plt Count MPV Immature Gran % (Auto) Neut % (Auto) Lymph % (Auto) [place] % (Auto) Eos % (Auto) Baso % (Auto) Lymph # (Auto) [place] # (Auto) Eos # (Auto) Baso # (Auto) Abs Immat Gran (auto) Absolute Neuts (auto) Absolute Nucleated RBC Nucleated RBC % (auto) VBG pH 7.42 VBG pCO2 42 VBG pO2 22 VBG HCO3 28 H VBG O2 Saturation < 30.0 VBG Base Excess 3.1 Anion Gap Estim Creat Clear Calc Estimated GFR Random Glucose Lactic Acid Calcium Troponin I High Sens B-Natriuretic Peptide COVID-19 ([facility]) COVID-19 Clin Com Imaging Radiologist's Impressions: Impressions Chest X-Ray 09/19/22 20:47 IMPRESSION: No acute pulmonary disease. Emphysema. Assessment and Plan (1) Acute respiratory distress: Status: Acute Plan This is a 62-year-old male with pertinent history of essential hypertension, [employer] D not on home oxygen, mood disorder, mixed hyperlipidemia who presents to the emergency department for evaluation of dyspnea. #. Acute respiratory distress due to acute exacerbation of COPD. Will admit patient for observation. Scheduled and p.r.n. DuoNebs. Initiating systemic steroids. Initiating azithromycin for pleiotropic effect. #. Reactive leukocytosis. No sepsis #. Essential hypertension. Continue home antihypertensives #. Mood disorder. Continue home mood stabilizers #. Mixed hyperlipidemia: On statin Med rec pending DVT prophylaxis: Lovenox Full code Cardiac diet Time Spent With Patient Time: Total time managing care of this patient today ____ minutes. Quality Stroke Does the patient have a stroke diagnosis?: No VTE Prior VTE?: No VTE Risk Level:: Medical - moderate - high VTE Device Contraindication: Treatment Not Indicated VTE Drug Contraindication: N/A - Med Ordered
[2022-09-20] MEDS: Azithromycin 500 MG in 0.9 % Sodium Chloride 250 ML 125 MG IV (03:06)
[2022-09-20] MEDS: methylPREDNISolone Sod Succ 40 MG/ML VIAL IVPUSH ×2 (03:08→15:00)
[2022-09-20 06:16] LABS: Basophils Percent Auto 0.2 % (0-2); Hematocrit 34.2 % (42.0-52.0); Hemoglobin 11.6 g/dl (14.0-18.0); Imm Gran Abs Auto 0.62 X10*3/uL (0.00-0.03); Imm Gran Pct Auto 2.4 % (0.0-0.4); Lymphocytes Absolute Auto 0.3 X10*3/uL (1.2-4.9); Lymphocytes Percent Auto 1.1 % (20-40); MANUAL DIFF FLAG SCAN; Mean Corpuscular HGB Conc 33.9 g/dl (31.0-36.0); Mean Corpuscular Hemoglobin 31.5 pg (27.0-33.0); Mean Corpuscular Volume 92.9 fL (80.0-98.0); Mean Platelet Volume 8.8 fL (9.4-12.4); Monocytes Absolute Auto 0.5 X10*3/uL (0.1-1.2); Monocytes Percent Auto 1.9 % (2-11); Neutrophils Absolute Auto 24.2 x10*3/uL (2.0-8.3); Neutrophils Percent Auto 94.4 % (45-73); Platelet Count 251 X10*3/uL (160-400); Red Blood Count 3.68 X10*6/uL (4.60-5.80); Red Cell Distribution Width 13.6 % (11.0-16.0); SCAN SMEAR FLAG 1; White Blood Count 25.7 X10*3/uL (4.8-10.8)
[2022-09-20 06:39] LABS: Anion Gap 14 (12-20); Blood Urea Nitrogen 12 mg/dL (9-16); Calcium 8.6 mg/dL (8.4-10.2); Carbon Dioxide 20 mmol/L (22-29); Chloride 106 mmol/L (96-108); Creatinine Clr Calc Pharmacy 67.3; Estimated Glomerular Filt Rate > 60; Glucose Random 220 mg/dL (60-115); Potassium 3.7 mmol/L (3.3-5.1); SLIDE REVIEW VERIFIED; Sodium 136 mmol/L (135-145)
[2022-09-20] MEDS: 0.9 % Sodium Chloride Flush 3 ML SYRINGE IVFLUSH ×2 (08:13→23:10)
[2022-09-20] MEDS: Albuterol/Iprat 2.5/0.5MG 3 ML AMPUL.NEB INHALE ×3 (08:26→19:39)
--- NOTE | 2022-09-20 08:50 | PHA.MEDREC ---
Pharmacy Consult ? Medication Reconciliation Pharmacy has completed the medication reconciliation. Spoke with patient in the ED. Patient knew all medications. Patient is no longer on amlodipine
--- NOTE | 2022-09-20 11:17 | PM.EVENT ---
Event Note Date of Service: 09/20/22 Event Note: Pt admitted this morning, personally assess, A/P per H and P of today, add Doxy for suspected bronchitis, monitor WBC, med rec completed. Time Spent With Patient Time: Total time managing care of this patient today ____ minutes.
[2022-09-20] MEDS: Doxycycline Hyclate 100 MG in 0.9 % Sodium Chloride 250 ML 166.67 MG IV ×2 (11:57→23:09)
[2022-09-20] MEDS: Aspirin Enteric Coated 81 MG TABLET.DR PO (12:05)
[2022-09-20] MEDS: Clopidogrel Bisulfate 75 MG TABLET PO (12:05)
[2022-09-20] MEDS: Metoprolol Succinate ER 50 MG TAB.ER.24H PO (12:06)
[2022-09-20] MEDS: Loratadine 10 MG TABLET PO (12:06)
[2022-09-20] MEDS: Losartan Potassium 50 MG TABLET 100 MG PO (12:06)
[2022-09-20] MEDS: Docusate Sodium 100 MG CAPSULE PO ×2 (12:06→19:43)
[2022-09-20] MEDS: Fluticasone Propionate Nasal 16 GM SPRAY 1 SPRAY NOSTRIL-B ×2 (12:06→22:11)
[2022-09-20] MEDS: Multivitamin TABLET 1 TAB PO (12:07)
[2022-09-20] MEDS: Tamsulosin HCL 0.4 MG CAPSULE PO (12:07)
--- NOTE | 2022-09-20 12:19 | MHC.CM.PN ---
Met with patient in regards to discharge planning. Patient resides in a [facility] outreach apartment, ambulates independently and had no services prior to coming to the hospital. PCP verified as Dr Ramirez. Copy of HCP obtained from [facility]. Patient is vaxxed and boosted x1 against Covid. Obs notice explained and signed. [facility] staff will transport patient home when medically stable. Continue to monitor for d/c needs.
[2022-09-20] MEDS: Acetaminophen 325 MG TABLET 650 MG PO (16:12)
[2022-09-20] MEDS: Pravastatin Sodium 40 MG TABLET PO (19:42)
[2022-09-20] MEDS: Benzonatate 100 MG CAPSULE 200 MG PO (19:43)
[2022-09-20] MEDS: Montelukast Sodium 10 MG TABLET PO (19:43)
[2022-09-20] MEDS: Gabapentin 100 MG CAPSULE PO (20:19)
[2022-09-20] MEDS: traZODone HCL 100 MG TABLET PO (22:11)
[2022-09-21] VITALS (11 sets, daily range): BP systolic 136–178; BP diastolic 70–84; PULSE 74–94; RESP 12–24; TEMP 36.4–36.9; O2SAT 91–96
[2022-09-21] MEDS: Azithromycin 500 MG in 0.9 % Sodium Chloride 250 ML 125 MG IV (02:20)
[2022-09-21] MEDS: methylPREDNISolone Sod Succ 40 MG/ML VIAL IVPUSH ×2 (02:20→13:31)
[2022-09-21] MEDS: Enoxaparin Sodium 40 MG/0.4 ML SYRINGE SUBCUT (02:24)
[2022-09-21] MEDS: Acetaminophen 325 MG TABLET 650 MG PO ×2 (03:02→20:23)
[2022-09-21] MEDS: Albuterol/Iprat 2.5/0.5MG 3 ML AMPUL.NEB INHALE ×5 (03:08→19:29)
--- NOTE | 2022-09-21 04:31 | PC.NURSE ---
Around 1999 on 09/20/22, pt c/o neuropathy in bilateral feet, Dr. Gamble notified and ordered 100 mg of gabapentin, administered with good effect.
[2022-09-21 05:51] LABS: Hematocrit 31.9 % (42.0-52.0); Mean Corpuscular HGB Conc 34.5 g/dl (31.0-36.0); Mean Corpuscular Hemoglobin 31.6 pg (27.0-33.0); Mean Corpuscular Volume 91.7 fL (80.0-98.0); Mean Platelet Volume 9.1 fL (9.4-12.4); Platelet Count 267 X10*3/uL (160-400); Red Blood Count 3.48 X10*6/uL (4.60-5.80); Red Cell Distribution Width 13.9 % (11.0-16.0); White Blood Count 19.8 X10*3/uL (4.8-10.8)
[2022-09-21] MEDS: Clopidogrel Bisulfate 75 MG TABLET PO (07:29)
[2022-09-21] MEDS: Tamsulosin HCL 0.4 MG CAPSULE PO (07:29)
[2022-09-21] MEDS: Aspirin Enteric Coated 81 MG TABLET.DR PO (07:29)
[2022-09-21] MEDS: Metoprolol Succinate ER 50 MG TAB.ER.24H PO (07:29)
[2022-09-21] MEDS: Losartan Potassium 50 MG TABLET 100 MG PO (07:29)
[2022-09-21] MEDS: Multivitamin TABLET 1 TAB PO (07:29)
[2022-09-21] MEDS: Fluticasone Propionate Nasal 16 GM SPRAY 1 SPRAY NOSTRIL-B ×2 (07:29→20:24)
[2022-09-21] MEDS: Loratadine 10 MG TABLET PO (07:29)
[2022-09-21] MEDS: Docusate Sodium 100 MG CAPSULE PO ×2 (07:29→20:22)
[2022-09-21] MEDS: 0.9 % Sodium Chloride Flush 3 ML SYRINGE IVFLUSH ×3 (07:31→20:24)
[2022-09-21] MEDS: Benzonatate 100 MG CAPSULE 200 MG PO ×2 (08:10→20:23)
--- NOTE | 2022-09-21 09:54 | HO.PM.IMPN ---
Subjective Subjective Date of Service: 09/21/22 Interval History: f/u on acute hypoxic resp failure dut copd ex overall improving, but not signficantly better Physical Exam Vital Signs: Vital Signs: Last Vital Signs Temp 98.4 F 09/21/22 07:22 Pulse 88 09/21/22 07:43 Resp 12 09/21/22 09:29 BP 138/72 09/21/22 07:22 Pulse Ox 91 L 09/21/22 07:22 O2 Del Method Room Air 09/21/22 07:22 Oxygen Flow Rate 6 09/19/22 20:31 BMI result Body Mass Index 24.0 Const: Other: General: AO X 3, no acute distress Resp: tight air movement CVS: S1,S2,RRR GI: +BS, NT, no distention Skin: No rash Neuro: motor grossly intact Psych: appropriate affect Objective Data Active Medications Acetaminophen (Acetaminophen 325 Mg Tablet) 650 mg PO Q6H PRN PRN Reason: Pain, Mild (Pain Scale 1-3) Last Admin: 09/21/22 03:02 Dose: 650 mg Documented By: HERIBERTO Acetaminophen (Acetaminophen Supp 650 Mg Supp.Rect) 650 mg MO Q6H PRN PRN Reason: Pain, Mild (Pain Scale 1-3) Albuterol Sulfate (Albuterol Sulfate (0.083%) 2.5 Mg/3 Ml Vial.Neb) 2.5 mg INHALE Q6H PRN PRN Reason: wheezing Albuterol Sulfate (Albuterol Sulfate 90 Mcg 8 Gm Inhaler) 2 puff INHALE Q4H PRN PRN Reason: wheezing Albuterol/Ipratropium (Albuterol/Iprat 2.5/0.5mg 3 Ml Ampul.Neb) 3 ml INHALE RQ4H WHILE AWAKE [facility] Last Admin: 09/21/22 07:42 Dose: 3 ml Documented By: FLOYD Albuterol/Ipratropium (Albuterol/Iprat 2.5/0.5mg 3 Ml Ampul.Neb) 3 ml INHALE Q4H PRN PRN Reason: Wheezing Aspirin (Aspirin Enteric Coated 81 Mg Tablet.) 81 mg PO DAILY [facility] Last Admin: 09/21/22 07:29 Dose: 81 mg Documented By: DABA Benzonatate (Benzonatate 100 Mg Capsule) 200 mg PO TID PRN PRN Reason: cough Last Admin: 09/21/22 08:10 Dose: 200 mg Documented By: MALISSA Clopidogrel Bisulfate (Clopidogrel Bisulfate 75 Mg Tablet) 75 mg PO DAILY [facility] Last Admin: 09/21/22 07:29 Dose: 75 mg Documented By: MALISSA Docusate Sodium (Docusate Sodium 100 Mg Capsule) 100 mg PO BID [facility] Last Admin: 09/21/22 07:29 Dose: 100 mg Documented By: MALISSA Enoxaparin Sodium (Enoxaparin Sodium 40 Mg/0.4 Ml Syringe) 40 mg SUBCUT Q24H [facility] Last Admin: 09/21/22 02:24 Dose: 40 mg Documented By: HERIBERTO Fluticasone Propionate (Fluticasone Propionate Nasal 16 Gm [place]) 1 spray NOSTRIL-B BID [facility] Last Admin: 09/21/22 07:29 Dose: 1 spray Documented By: MALISSA Fluticasone/Vilanterol (Fluticasone/Vilanterol 200/25 Blst.W.Dev) 1 puff INHALE RDAILY [facility] Last Admin: 09/21/22 07:41 Dose: Not Given Documented By: FLOYD Non-Admin Reason: med unavail pharmacy called Azithromycin 500 mg/ Sodium (Chloride) 250 mls @ 125 mls/hr IV Q24H [facility] Last Infusion: 09/21/22 04:39 Dose: 0 mls/hr Documented By: HERIBERTO Doxycycline Hyclate 100 mg/ (Sodium Chloride) 250 mls @ 166.67 mls/hr IV Q12H [facility] Last Infusion: 09/21/22 00:43 Dose: 0 mls/hr Documented By: HERIBERTO Loratadine (Loratadine 10 Mg Tablet) 10 mg PO DAILY [facility] Last Admin: 09/21/22 07:29 Dose: 10 mg Documented By: MALISSA Losartan Potassium (Losartan Potassium 50 Mg Tablet) 100 mg PO DAILY [facility]; Protocol Last Admin: 09/21/22 07:29 Dose: 100 mg Documented By: MALISSA Melatonin (Melatonin 3 Mg Tablet) 6 mg PO BEDTIME PRN PRN Reason: Insomnia Methylprednisolone Sodium Succinate (Methylprednisolone Sod Succ 40 Mg/Ml Vial) 40 mg IVPUSH Q12H [facility] Last Admin: 09/21/22 02:20 Dose: 40 mg Documented By: HERIBERTO Metoprolol Succinate (Metoprolol Succinate Er 50 Mg Tab.Er.24h) 50 mg PO DAILY [facility]; Protocol Last Admin: 09/21/22 07:29 Dose: 50 mg Documented By: MALISSA Montelukast Sodium (Montelukast Sodium 10 Mg Tablet) 10 mg PO BEDTIME [facility] Last Admin: 09/20/22 19:43 Dose: 10 mg Documented By: HERIBERTO Multivitamins/Vitamin C (Multivitamin Tablet) 1 tab PO DAILY [facility] Last Admin: 09/21/22 07:29 Dose: 1 tab Documented By: MALISSA Ondansetron HCl (Ondansetron Hcl 4 Mg/2 Ml Vial) 4 mg IVPUSH Q8H PRN PRN Reason: Nausea and Vomiting Pharmacy Consult (Consult Rx Perform Med Rec) 1 each MISCELLANE ONCE PRN PRN Reason: Consult order Pravastatin Sodium (Pravastatin Sodium 40 Mg Tablet) 40 mg PO BEDTIME [facility] Last Admin: 09/20/22 19:42 Dose: 40 mg Documented By: HERIBERTO Sodium Chloride (0.9 % Sodium Chloride Flush 3 Ml Syringe) 3 ml IVFLUSH QSHIFT [facility] Last Admin: 09/21/22 07:31 Dose: 3 ml Documented By: MALISSA Tamsulosin HCl (Tamsulosin Hcl 0.4 Mg Capsule) 0.4 mg PO DAILY [facility] Last Admin: 09/21/22 07:29 Dose: 0.4 mg Documented By: MALISSA Tiotropium Era (Tiotropium Era 2.5 Mcg Inhaler) 1 puff INHALE RDAILY [facility] Last Admin: 09/21/22 07:47 Dose: Not Given Documented By: FLOYD Non-Admin Reason: med unavail pharmacy called Trazodone HCl (Trazodone Hcl 100 Mg Tablet) 100 mg PO BEDTIME [facility] Last Admin: 09/20/22 22:11 Dose: 100 mg Documented By: HERIBERTO Labs 09/21/22 05:17 09/20/22 05:58 Labs: Laboratory Results - last 24 hr 09/21/22 05:17 MCV 91.7 MCH 31.6 MCHC 34.5 RDW 13.9 Plt Count 267 MPV 9.1 L Absolute Nucleated RBC 0.000 Nucleated RBC % (auto) 0.0 Microbiology Microbiology Results: Microbiology 09/19/22 21:32 Blood Culture - Preliminary Blood - Venous No growth after 24 hours. 09/19/22 21:32 Blood Culture - Preliminary Blood - Venous No growth after 24 hours. Assessment and Plan (1) Acute respiratory distress: Status: Acute Plan 62-year-old male with pertinent history of essential hypertension, COPD not on home oxygen, mood disorder, mixed hyperlipidemia who presents to the emergency department for evaluation of dyspnea. #.? Acute hypoxic resp failure due to COPD exacerbation and underlying bronchitis. Responding to therapy -continue bronchodilators by Neb -IV steroid -wean off O2 to with goal of no more than 93 % -Doxycycline started 09/20, elevated WBC Will admit patient for observation.? Scheduled and p.r.n. DuoNebs.? Initiating systemic steroids.? Initiating azithromycin for pleiotropic effect. #.? Reactive leukocytosis, probably reactive, improving, monitor #.? Essential hypertension.?continue Losartan and metoprolol #.? Mood disorder.? Continue home mood stabilizers #.? Mixed hyperlipidemia: On statin DVT prophylaxis:? Lovenox need for inaptient: acute resp failure due to PNA, Time Spent With Patient Time: Total time managing care of this patient today ____ minutes. Quality Stroke Does the patient have a stroke diagnosis?: No VTE Prior VTE?: No VTE Risk Level:: Medical - moderate - high VTE Device Contraindication: Treatment Not Indicated VTE Drug Contraindication: N/A - Med Ordered
[2022-09-21] MEDS: Doxycycline Hyclate 100 MG in 0.9 % Sodium Chloride 250 ML 166.67 MG IV ×2 (10:39→23:05)
[2022-09-21] MEDS: guaiFENesin LA 600 MG TAB.ER.12H PO ×2 (13:31→20:22)
[2022-09-21] MEDS: Pravastatin Sodium 40 MG TABLET PO (20:22)
[2022-09-21] MEDS: Montelukast Sodium 10 MG TABLET PO (20:23)
[2022-09-21] MEDS: traZODone HCL 100 MG TABLET PO (23:05)
[2022-09-22] VITALS (11 sets, daily range): BP systolic 140–166; BP diastolic 70–87; PULSE 77–110; RESP 16–20; TEMP 36.4–36.9; O2SAT 18–98
[2022-09-22] MEDS: Azithromycin 500 MG in 0.9 % Sodium Chloride 250 ML 125 MG IV (02:41)
[2022-09-22] MEDS: Enoxaparin Sodium 40 MG/0.4 ML SYRINGE SUBCUT (02:42)
[2022-09-22] MEDS: methylPREDNISolone Sod Succ 40 MG/ML VIAL IVPUSH ×2 (02:42→14:09)
[2022-09-22] MEDS: Albuterol Sulfate (0.083%) 2.5 MG/3 ML VIAL.NEB INHALE (04:56)
[2022-09-22] MEDS: Albuterol/Iprat 2.5/0.5MG 3 ML AMPUL.NEB INHALE ×4 (07:59→19:59)
[2022-09-22] MEDS: Aspirin Enteric Coated 81 MG TABLET.DR PO (08:59)
[2022-09-22] MEDS: Acetaminophen 325 MG TABLET 650 MG PO (08:59)
[2022-09-22] MEDS: Clopidogrel Bisulfate 75 MG TABLET PO (08:59)
[2022-09-22] MEDS: Docusate Sodium 100 MG CAPSULE PO ×2 (08:59→21:11)
[2022-09-22] MEDS: Benzonatate 100 MG CAPSULE 200 MG PO (09:00)
[2022-09-22] MEDS: 0.9 % Sodium Chloride Flush 3 ML SYRINGE IVFLUSH ×3 (09:01→21:06)
[2022-09-22] MEDS: Tamsulosin HCL 0.4 MG CAPSULE PO (09:08)
[2022-09-22] MEDS: guaiFENesin LA 600 MG TAB.ER.12H PO ×2 (09:08→21:11)
[2022-09-22] MEDS: Losartan Potassium 50 MG TABLET 100 MG PO (09:08)
[2022-09-22] MEDS: Loratadine 10 MG TABLET PO (09:09)
[2022-09-22] MEDS: Metoprolol Succinate ER 50 MG TAB.ER.24H PO (09:09)
[2022-09-22] MEDS: Multivitamin TABLET 1 TAB PO (09:09)
[2022-09-22] MEDS: Fluticasone Propionate Nasal 16 GM SPRAY 1 SPRAY NOSTRIL-B ×2 (09:13→21:09)
--- NOTE | 2022-09-22 09:38 | HO.PM.IMPN ---
Subjective Subjective Date of Service: 09/22/22 Interval History: f/u on acute hypoxic resp failure dut copd ex He has been getting better but said he had a hard time breathing this morning and had to be put back on O2 Physical Exam Vital Signs: Vital Signs: Last Vital Signs Temp 98.4 F 09/22/22 07:23 Pulse 88 09/22/22 08:00 Resp 18 09/22/22 08:00 BP 150/70 H 09/22/22 07:23 Pulse Ox 98 09/22/22 07:23 O2 Del Method Nasal Cannula 09/22/22 07:23 O2 Flow Rate 3 09/22/22 07:23 Oxygen Flow Rate 6 09/19/22 20:31 BMI result Body Mass Index 24.0 Const: Other: General: AO X 3, no acute distress Resp: clear CVS: S1,S2,RRR GI: +BS, NT, no distention Skin: No rash Neuro: motor grossly intact Psych: appropriate affect Objective Data Active Medications Acetaminophen (Acetaminophen 325 Mg Tablet) 650 mg PO Q6H PRN PRN Reason: Pain, Mild (Pain Scale 1-3) Last Admin: 09/22/22 08:59 Dose: 650 mg Documented By: COOKIE Acetaminophen (Acetaminophen Supp 650 Mg Supp.Rect) 650 mg CO Q6H PRN PRN Reason: Pain, Mild (Pain Scale 1-3) Albuterol Sulfate (Albuterol Sulfate (0.083%) 2.5 Mg/3 Ml Vial.Neb) 2.5 mg INHALE Q6H PRN PRN Reason: wheezing Last Admin: 09/22/22 04:56 Dose: 2.5 mg Documented By: YONI Albuterol Sulfate (Albuterol Sulfate 90 Mcg 8 Gm Inhaler) 2 puff INHALE Q4H PRN PRN Reason: wheezing Albuterol/Ipratropium (Albuterol/Iprat 2.5/0.5mg 3 Ml Ampul.Neb) 3 ml INHALE RQ4H WHILE AWAKE [facility] Last Admin: 09/22/22 07:59 Dose: 3 ml Documented By: FLOYD Albuterol/Ipratropium (Albuterol/Iprat 2.5/0.5mg 3 Ml Ampul.Neb) 3 ml INHALE Q4H PRN PRN Reason: Wheezing Aspirin (Aspirin Enteric Coated 81 Mg Tablet.Dr) 81 mg PO DAILY [facility] Last Admin: 09/22/22 08:59 Dose: 81 mg Documented By: COOKIE Benzonatate (Benzonatate 100 Mg Capsule) 200 mg PO TID PRN PRN Reason: cough Last Admin: 09/22/22 09:00 Dose: 200 mg Documented By: COOKIE Clopidogrel Bisulfate (Clopidogrel Bisulfate 75 Mg Tablet) 75 mg PO DAILY [facility] Last Admin: 09/22/22 08:59 Dose: 75 mg Documented By: COOKIE Docusate Sodium (Docusate Sodium 100 Mg Capsule) 100 mg PO BID [facility] Last Admin: 09/22/22 08:59 Dose: 100 mg Documented By: COOKIE Enoxaparin Sodium (Enoxaparin Sodium 40 Mg/0.4 Ml Syringe) 40 mg SUBCUT Q24H [facility] Last Admin: 09/22/22 02:42 Dose: 40 mg Documented By: HERIBERTO Fluticasone Propionate (Fluticasone Propionate Nasal 16 Gm [place]) 1 spray NOSTRIL-B BID [facility] Last Admin: 09/22/22 09:13 Dose: 1 spray Documented By: COOKIE Fluticasone/Vilanterol (Fluticasone/Vilanterol 200/25 Blst.W.Dev) 1 puff INHALE RDAILY [facility] Last Admin: 09/22/22 08:03 Dose: Not Given Documented By: FLOYD Non-Admin Reason: med unavail pharmacy called Guaifenesin (Guaifenesin [place] 600 Mg Tab.Er.12h) 600 mg PO BID [facility] Last Admin: 09/22/22 09:08 Dose: 600 mg Documented By: COOKIE Azithromycin 500 mg/ Sodium (Chloride) 250 mls @ 125 mls/hr IV Q24H [facility] Last Infusion: 09/22/22 04:45 Dose: 0 mls/hr Documented By: HERIBERTO Doxycycline Hyclate 100 mg/ (Sodium Chloride) 250 mls @ 166.67 mls/hr IV Q12H [facility] Last Infusion: 09/22/22 00:38 Dose: 0 mls/hr Documented By: HERIBERTO Loratadine (Loratadine 10 Mg Tablet) 10 mg PO DAILY [facility] Last Admin: 09/22/22 09:09 Dose: 10 mg Documented By: COOKIE Losartan Potassium (Losartan Potassium 50 Mg Tablet) 100 mg PO DAILY [facility]; Protocol Last Admin: 09/22/22 09:08 Dose: 100 mg Documented By: COOKIE Melatonin (Melatonin 3 Mg Tablet) 6 mg PO BEDTIME PRN PRN Reason: Insomnia Methylprednisolone Sodium Succinate (Methylprednisolone Sod Succ 40 Mg/Ml Vial) 40 mg IVPUSH Q12H [facility] Last Admin: 09/22/22 02:42 Dose: 40 mg Documented By: HERIBERTO Metoprolol Succinate (Metoprolol Succinate Er 50 Mg Tab.Er.24h) 50 mg PO DAILY [facility]; Protocol Last Admin: 09/22/22 09:09 Dose: 50 mg Documented By: COOKIE Montelukast Sodium (Montelukast Sodium 10 Mg Tablet) 10 mg PO BEDTIME [facility] Last Admin: 09/21/22 20:23 Dose: 10 mg Documented By: HERIBERTO Multivitamins/Vitamin C (Multivitamin Tablet) 1 tab PO DAILY [facility] Last Admin: 09/22/22 09:09 Dose: 1 tab Documented By: COOKIE Ondansetron HCl (Ondansetron Hcl 4 Mg/2 Ml Vial) 4 mg IVPUSH Q8H PRN PRN Reason: Nausea and Vomiting Pharmacy Consult (Consult Rx Perform Med Rec) 1 each MISCELLANE ONCE PRN PRN Reason: Consult order Pravastatin Sodium (Pravastatin Sodium 40 Mg Tablet) 40 mg PO BEDTIME [facility] Last Admin: 09/21/22 20:22 Dose: 40 mg Documented By: HERIBERTO Sodium Chloride (0.9 % Sodium Chloride Flush 3 Ml Syringe) 3 ml IVFLUSH QSHIFT [facility] Last Admin: 09/22/22 09:01 Dose: 3 ml Documented By: COOKIE Tamsulosin HCl (Tamsulosin Hcl 0.4 Mg Capsule) 0.4 mg PO DAILY [facility] Last Admin: 09/22/22 09:08 Dose: 0.4 mg Documented By: COOKIE Tiotropium [place] (Tiotropium [place] 2.5 Mcg Inhaler) 1 puff INHALE RDAILY [facility] Last Admin: 09/22/22 08:03 Dose: Not Given Documented By: FLOYD Non-Admin Reason: med unavail pharmacy called Trazodone HCl (Trazodone Hcl 100 Mg Tablet) 100 mg PO BEDTIME [facility] Last Admin: 09/21/22 23:05 Dose: 100 mg Documented By: HERIBERTO Labs 09/21/22 05:17 09/20/22 05:58 Microbiology Microbiology Results: Microbiology 09/19/22 21:32 Blood Culture - Preliminary Blood - Venous No growth after 48 hours. 09/19/22 21:32 Blood Culture - Preliminary Blood - Venous No growth after 48 hours. Assessment and Plan (1) Acute respiratory distress: Status: Acute Plan 62-year-old male with pertinent history of essential hypertension, COPD not on home oxygen, mood disorder, mixed hyperlipidemia who presents to the emergency department for evaluation of dyspnea. #.?Acute hypoxic resp failure due to COPD exacerbation and underlying bronchitis. Responding to therapy -continue bronchodilators by Neb -IV steroid -wean off O2 to with goal of no more than 93 % -Doxycycline started 09/20, elevated WBC Scheduled and p.r.n. DuoNebs.?continue steroids.? azithromycin for pleiotropic effect. #.? Reactive leukocytosis, probably reactive, improving, monitor #.? Essential hypertension.?continue Losartan and metoprolol #.? Mood disorder.? Continue home mood stabilizers #.? Mixed hyperlipidemia: On statin DVT prophylaxis:? Lovenox need for inaptient: acute resp failure due to PNA, will reassess for discharge later today Time Spent With Patient Time: Total time managing care of this patient today ____ minutes. Quality Stroke Does the patient have a stroke diagnosis?: No VTE Prior VTE?: No VTE Risk Level:: Medical - moderate - high VTE Device Contraindication: Treatment Not Indicated VTE Drug Contraindication: N/A - Med Ordered
[2022-09-22] MEDS: Doxycycline Hyclate 100 MG in 0.9 % Sodium Chloride 250 ML 166 MG IV (11:25)
[2022-09-22] MEDS: Pravastatin Sodium 40 MG TABLET PO (21:11)
[2022-09-22] MEDS: Montelukast Sodium 10 MG TABLET PO (21:11)
[2022-09-22] MEDS: traZODone HCL 100 MG TABLET PO (22:42)
[2022-09-22] MEDS: Doxycycline Hyclate 100 MG in 0.9 % Sodium Chloride 250 ML 166.67 MG IV (23:27)
[2022-09-23] VITALS (10 sets, daily range): BP systolic 142–162; BP diastolic 74–80; PULSE 79–105; RESP 18–20; TEMP 36.1–36.8; O2SAT 95–98; BMI 25.4
[2022-09-23] MEDS: Enoxaparin Sodium 40 MG/0.4 ML SYRINGE SUBCUT ×2 (02:01→23:37)
[2022-09-23] MEDS: methylPREDNISolone Sod Succ 40 MG/ML VIAL IVPUSH (02:01)
[2022-09-23] MEDS: Azithromycin 500 MG in 0.9 % Sodium Chloride 250 ML 125 MG IV (02:05)
[2022-09-23] MEDS: ondansetron HCL 4 MG/2 ML VIAL IVPUSH (03:12)
[2022-09-23] MEDS: Albuterol/Iprat 2.5/0.5MG 3 ML AMPUL.NEB INHALE ×5 (03:20→18:50)
--- NOTE | 2022-09-23 03:24 | PC.NURSE ---
Pt c/o nausea while getting IV Azithromycin, pt stated that the same thing happened yesterday while he was receiving it. IV Azithromycin was stopped and pt stated he doesn't want it anymore. Pt given Zofran for nausea. Dr. Gamble was notified.
--- NOTE | 2022-09-23 08:40 | HO.PM.IMPN ---
Subjective Subjective Date of Service: 09/23/22 Interval History: f/u on acute hypoxic resp failure dut copd ex better, slept better, still sob and O2 sat is borderline Physical Exam Vital Signs: Vital Signs: Last Vital Signs Temp 98.3 F 09/23/22 07:46 Pulse 105 H 09/23/22 07:52 Resp 18 09/23/22 07:52 BP 160/74 H 09/23/22 07:46 Pulse Ox 96 09/23/22 07:46 O2 Del Method Nasal Cannula 09/23/22 07:46 O2 Flow Rate 2 09/23/22 07:46 Oxygen Flow Rate 6 09/19/22 20:31 BMI result Body Mass Index 24.0 Const: Other: General: AO X 3, no acute distress Resp: clear CVS: S1,S2,RRR GI: +BS, NT, no distention Skin: No rash Neuro: motor grossly intact Psych: appropriate affect Objective Data Active Medications Acetaminophen (Acetaminophen 325 Mg Tablet) 650 mg PO Q6H PRN PRN Reason: Pain, Mild (Pain Scale 1-3) Last Admin: 09/22/22 08:59 Dose: 650 mg Documented By: COOKIE Acetaminophen (Acetaminophen Supp 650 Mg Supp.Rect) 650 mg [place] Q6H PRN PRN Reason: Pain, Mild (Pain Scale 1-3) Albuterol Sulfate (Albuterol Sulfate (0.083%) 2.5 Mg/3 Ml Vial.Neb) 2.5 mg INHALE Q6H PRN PRN Reason: wheezing Last Admin: 09/22/22 04:56 Dose: 2.5 mg Documented By: YONI Albuterol Sulfate (Albuterol Sulfate 90 Mcg 8 Gm Inhaler) 2 puff INHALE Q4H PRN PRN Reason: wheezing Albuterol/Ipratropium (Albuterol/Iprat 2.5/0.5mg 3 Ml Ampul.Neb) 3 ml INHALE RQ4H WHILE AWAKE DINH Last Admin: 09/23/22 07:51 Dose: 3 ml Documented By: GINGER Albuterol/Ipratropium (Albuterol/Iprat 2.5/0.5mg 3 Ml Ampul.Neb) 3 ml INHALE Q4H PRN PRN Reason: Wheezing Last Admin: 09/23/22 03:20 Dose: 3 ml Documented By: YONI Aspirin (Aspirin Enteric Coated 81 Mg Tablet.Dr) 81 mg PO DAILY [facility] Last Admin: 09/22/22 08:59 Dose: 81 mg Documented By: COOKIE Benzonatate (Benzonatate 100 Mg Capsule) 200 mg PO TID PRN PRN Reason: cough Last Admin: 09/22/22 09:00 Dose: 200 mg Documented By: COOKIE Clopidogrel Bisulfate (Clopidogrel Bisulfate 75 Mg Tablet) 75 mg PO DAILY [facility] Last Admin: 09/22/22 08:59 Dose: 75 mg Documented By: COOKIE Docusate Sodium (Docusate Sodium 100 Mg Capsule) 100 mg PO BID [facility] Last Admin: 09/22/22 21:11 Dose: 100 mg Documented By: JACKSON Enoxaparin Sodium (Enoxaparin Sodium 40 Mg/0.4 Ml Syringe) 40 mg SUBCUT Q24H [facility] Last Admin: 09/23/22 02:01 Dose: 40 mg Documented By: JACKSON Fluticasone Propionate (Fluticasone Propionate Nasal 16 Gm [place]) 1 spray NOSTRIL-B BID [facility] Last Admin: 09/22/22 21:09 Dose: 1 spray Documented By: JACKSON Fluticasone/Vilanterol (Fluticasone/Vilanterol 200/25 Blst.W.Dev) 1 puff INHALE RDAILY [facility] Last Admin: 09/23/22 07:52 Dose: Not Given Documented By: GINGER Non-Admin Reason: MDI not availab;le, pharmacy notified. Guaifenesin (Guaifenesin La 600 Mg Tab.Er.12h) 600 mg PO BID [facility] Last Admin: 09/22/22 21:11 Dose: 600 mg Documented By: JACKSON Azithromycin 500 mg/ Sodium (Chloride) 250 mls @ 125 mls/hr IV Q24H [facility] Last Infusion: 09/23/22 03:16 Dose: 0 mls/hr Documented By: JACKSON Doxycycline Hyclate 100 mg/ (Sodium Chloride) 250 mls @ 166.67 mls/hr IV Q12H [facility] Last Infusion: 09/23/22 01:03 Dose: 0 mls/hr Documented By: JACKSON Loratadine (Loratadine 10 Mg Tablet) 10 mg PO DAILY [facility] Last Admin: 09/22/22 09:09 Dose: 10 mg Documented By: COOKIE Losartan Potassium (Losartan Potassium 50 Mg Tablet) 100 mg PO DAILY [facility]; Protocol Last Admin: 09/22/22 09:08 Dose: 100 mg Documented By: COOKIE Melatonin (Melatonin 3 Mg Tablet) 6 mg PO BEDTIME PRN PRN Reason: Insomnia Methylprednisolone Sodium Succinate (Methylprednisolone Sod Succ 40 Mg/Ml Vial) 40 mg IVPUSH Q12H [facility] Last Admin: 09/23/22 02:01 Dose: 40 mg Documented By: JACKSON Metoprolol Succinate (Metoprolol Succinate Er 50 Mg Tab.Er.24h) 50 mg PO DAILY [facility]; Protocol Last Admin: 09/22/22 09:09 Dose: 50 mg Documented By: COOKIE Montelukast Sodium (Montelukast Sodium 10 Mg Tablet) 10 mg PO BEDTIME [facility] Last Admin: 09/22/22 21:11 Dose: 10 mg Documented By: JACKSON Multivitamins/Vitamin C (Multivitamin Tablet) 1 tab PO DAILY [facility] Last Admin: 09/22/22 09:09 Dose: 1 tab Documented By: COOKIE Ondansetron HCl (Ondansetron Hcl 4 Mg/2 Ml Vial) 4 mg IVPUSH Q8H PRN PRN Reason: Nausea and Vomiting Last Admin: 09/23/22 03:12 Dose: 4 mg Documented By: JACKSON Pharmacy Consult (Consult Rx Perform Med Rec) 1 each MISCELLANE ONCE PRN PRN Reason: Consult order Pravastatin Sodium (Pravastatin Sodium 40 Mg Tablet) 40 mg PO BEDTIME [facility] Last Admin: 09/22/22 21:11 Dose: 40 mg Documented By: JACKSON Sodium Chloride (0.9 % Sodium Chloride Flush 3 Ml Syringe) 3 [facility] Last Admin: 09/22/22 21:06 Dose: 3 ml Documented By: JACKSON Tamsulosin HCl (Tamsulosin Hcl 0.4 Mg Capsule) 0.4 mg PO DAILY [facility] Last Admin: 09/22/22 09:08 Dose: 0.4 mg Documented By: HO.S-KLEIC Tiotropium [place] (Tiotropium [place] 2.5 Mcg Inhaler) 1 puff INHALE RDAILY [facility] Last Admin: 09/23/22 07:51 Dose: 1 puff Documented By: GINGER Trazodone HCl (Trazodone Hcl 100 Mg Tablet) 100 mg PO BEDTIME [facility] Last Admin: 09/22/22 22:42 Dose: 100 mg Documented By: ODRISM Labs 09/21/22 05:17 09/20/22 05:58 Assessment and Plan (1) Acute respiratory distress: Status: Acute (2) Mood disorder: Status: Acute Plan 62-year-old male with pertinent history of essential hypertension, COPD not on home oxygen, mood disorder, mixed hyperlipidemia who presents to the emergency department for evaluation of dyspnea. #.?Acute hypoxic resp failure due to COPD exacerbation and underlying bronchitis. Responding to therapy -continue bronchodilators by Neb -IV steroid to Prednisone today -wean off O2 to with goal of no more than 93 % -Doxycycline started 09/20, elevated WBC Scheduled and p.r.n. DuoNebs.?continue steroids.? azithromycin for pleiotropic effect. #.? Reactive leukocytosis, probably reactive, improving, monitor #.? Essential hypertension.?continue Losartan and metoprolol #.? Mood disorder.? Continue home mood stabilizers #.? Mixed hyperlipidemia: On statin DVT prophylaxis:? Lovenox need for inaptient: acute resp failure due to PNA, will reassess for discharge later today Time Spent With Patient Time: Total time managing care of this patient today ____ minutes. Quality Stroke Does the patient have a stroke diagnosis?: No VTE Prior VTE?: No VTE Risk Level:: Medical - moderate - high VTE Device Contraindication: Treatment Not Indicated VTE Drug Contraindication: N/A - Med Ordered
[2022-09-23] MEDS: Losartan Potassium 50 MG TABLET 100 MG PO (08:46)
[2022-09-23] MEDS: guaiFENesin LA 600 MG TAB.ER.12H PO ×2 (08:46→20:21)
[2022-09-23] MEDS: Clopidogrel Bisulfate 75 MG TABLET PO (08:46)
[2022-09-23] MEDS: Metoprolol Succinate ER 50 MG TAB.ER.24H PO (08:46)
[2022-09-23] MEDS: Loratadine 10 MG TABLET PO (08:47)
[2022-09-23] MEDS: Docusate Sodium 100 MG CAPSULE PO ×2 (08:47→20:21)
[2022-09-23] MEDS: Aspirin Enteric Coated 81 MG TABLET.DR PO (08:47)
[2022-09-23] MEDS: Fluticasone Propionate Nasal 16 GM SPRAY 1 SPRAY NOSTRIL-B ×2 (08:47→20:29)
[2022-09-23] MEDS: Tamsulosin HCL 0.4 MG CAPSULE PO (08:47)
[2022-09-23] MEDS: Multivitamin TABLET 1 TAB PO (08:47)
[2022-09-23] MEDS: 0.9 % Sodium Chloride Flush 3 ML SYRINGE IVFLUSH ×3 (08:51→20:22)
[2022-09-23] MEDS: predniSONE 20 MG TABLET 40 MG PO (09:56)
[2022-09-23] MEDS: Doxycycline Monohydrate 100 MG CAPSULE PO ×2 (09:56→19:38)
[2022-09-23] MEDS: Pravastatin Sodium 40 MG TABLET PO (20:21)
[2022-09-23] MEDS: Montelukast Sodium 10 MG TABLET PO (20:21)
[2022-09-23] MEDS: traZODone HCL 100 MG TABLET PO (20:21)
[2022-09-24] VITALS (8 sets, daily range): BP systolic 158–179; BP diastolic 80–81; PULSE 85–108; RESP 18–22; TEMP 36.3–36.6; O2SAT 94–99
[2022-09-24] MEDS: Albuterol Sulfate (0.083%) 2.5 MG/3 ML VIAL.NEB INHALE (03:23)
[2022-09-24] MEDS: Fluticasone/Vilanterol 200/25 BLST.W.DEV 1 PUFF INHALE (07:38)
[2022-09-24] MEDS: Albuterol/Iprat 2.5/0.5MG 3 ML AMPUL.NEB INHALE ×4 (07:38→19:06)
[2022-09-24] MEDS: 0.9 % Sodium Chloride Flush 3 ML SYRINGE IVFLUSH ×3 (07:55→21:38)
[2022-09-24] MEDS: Multivitamin TABLET 1 TAB PO (07:56)
[2022-09-24] MEDS: Aspirin Enteric Coated 81 MG TABLET.DR PO (07:57)
[2022-09-24] MEDS: guaiFENesin LA 600 MG TAB.ER.12H PO ×2 (07:57→21:35)
[2022-09-24] MEDS: predniSONE 20 MG TABLET 40 MG PO (07:57)
[2022-09-24] MEDS: Metoprolol Succinate ER 50 MG TAB.ER.24H PO (07:57)
[2022-09-24] MEDS: Loratadine 10 MG TABLET PO (07:58)
[2022-09-24] MEDS: Doxycycline Monohydrate 100 MG CAPSULE PO ×2 (07:58→19:48)
[2022-09-24] MEDS: Fluticasone Propionate Nasal 16 GM SPRAY 1 SPRAY NOSTRIL-B ×2 (07:58→21:36)
[2022-09-24] MEDS: Losartan Potassium 50 MG TABLET 100 MG PO (07:58)
[2022-09-24] MEDS: Clopidogrel Bisulfate 75 MG TABLET PO (08:01)
[2022-09-24] MEDS: Tamsulosin HCL 0.4 MG CAPSULE PO (08:02)
--- NOTE | 2022-09-24 08:48 | HO.PM.IMPN ---
Subjective Subjective Date of Service: 09/24/22 Interval History: f/u on acute hypoxic resp failure dut copd ex still coughing, feel sob, O2 sat is marginal Physical Exam Vital Signs: Vital Signs: Last Vital Signs Temp 97.4 F 09/24/22 07:36 Pulse 88 09/24/22 07:38 Resp 22 H 09/24/22 07:38 BP 158/81 H 09/24/22 07:36 Pulse Ox 96 09/24/22 07:36 O2 Del Method Nasal Cannula 09/24/22 07:36 O2 Flow Rate 1 09/24/22 07:36 Oxygen Flow Rate 6 09/19/22 20:31 BMI result Body Mass Index 25.4 Const: Other: General: AO X 3, no acute distress Resp: no wheezes, no rhonchi CVS: S1,S2,RRR GI: +BS, NT, no distention Skin: No rash Neuro: motor grossly intact Psych: appropriate affect Objective Data Active Medications Acetaminophen (Acetaminophen 325 Mg Tablet) 650 mg PO Q6H PRN PRN Reason: Pain, Mild (Pain Scale 1-3) Last Admin: 09/22/22 08:59 Dose: 650 mg Documented By: COOKIE Acetaminophen (Acetaminophen Supp 650 Mg Supp.Rect) 650 mg [place] Q6H PRN PRN Reason: Pain, Mild (Pain Scale 1-3) Albuterol Sulfate (Albuterol Sulfate (0.083%) 2.5 Mg/3 Ml Vial.Neb) 2.5 mg INHALE Q6H PRN PRN Reason: wheezing Last Admin: 09/24/22 03:23 Dose: 2.5 mg Documented By: YONI Albuterol Sulfate (Albuterol Sulfate 90 Mcg 8 Gm Inhaler) 2 puff INHALE Q4H PRN PRN Reason: wheezing Albuterol/Ipratropium (Albuterol/Iprat 2.5/0.5mg 3 Ml Ampul.Neb) 3 ml INHALE RQ4H WHILE AWAKE DINH Last Admin: 09/24/22 07:38 Dose: 3 ml Documented By: GINGER Albuterol/Ipratropium (Albuterol/Iprat 2.5/0.5mg 3 Ml Ampul.Neb) 3 ml INHALE Q4H PRN PRN Reason: Wheezing Last Admin: 09/23/22 03:20 Dose: 3 ml Documented By: YONI Aspirin (Aspirin Enteric Coated 81 Mg Tablet.Dr) 81 mg PO DAILY [facility] Last Admin: 09/24/22 07:57 Dose: 81 mg Documented By: THUY Benzonatate (Benzonatate 100 Mg Capsule) 200 mg PO TID PRN PRN Reason: cough Last Admin: 09/22/22 09:00 Dose: 200 mg Documented By: MIGUEL-BRIANNE Clopidogrel Bisulfate (Clopidogrel Bisulfate 75 Mg Tablet) 75 mg PO DAILY [facility] Last Admin: 09/24/22 08:01 Dose: 75 mg Documented By: THUY Docusate Sodium (Docusate Sodium 100 Mg Capsule) 100 mg PO BID [facility] Last Admin: 09/24/22 08:01 Dose: Not Given Documented By: THUY Non-Admin Reason: Patient Refused Doxycycline Monohydrate (Doxycycline Monohydrate 100 Mg Capsule) 100 mg PO Q12H [facility] Last Admin: 09/24/22 07:58 Dose: 100 mg Documented By: THUY Enoxaparin Sodium (Enoxaparin Sodium 40 Mg/0.4 Ml Syringe) 40 mg SUBCUT Q24H [facility] Last Admin: 09/23/22 23:37 Dose: 40 mg Documented By: MARQUITA Fluticasone Propionate (Fluticasone Propionate Nasal 16 Gm [place]) 1 spray NOSTRIL-B BID [facility] Last Admin: 09/24/22 07:58 Dose: 1 spray Documented By: THUY Fluticasone/Vilanterol (Fluticasone/Vilanterol 200/25 Blst.W.Dev) 1 puff INHALE RDAILY [facility] Last Admin: 09/24/22 07:38 Dose: 1 puff Documented By: GINGER Guaifenesin (Guaifenesin La 600 Mg Tab.Er.12h) 600 mg PO BID [facility] Last Admin: 09/24/22 07:57 Dose: 600 mg Documented By: THUY Loratadine (Loratadine 10 Mg Tablet) 10 mg PO DAILY [facility] Last Admin: 09/24/22 07:58 Dose: 10 mg Documented By: THUY Losartan Potassium (Losartan Potassium 50 Mg Tablet) 100 mg PO DAILY [facility]; Protocol Last Admin: 09/24/22 07:58 Dose: 100 mg Documented By: THUY Metoprolol Succinate (Metoprolol Succinate Er 50 Mg Tab.Er.24h) 50 mg PO DAILY [facility]; Protocol Last Admin: 09/24/22 07:57 Dose: 50 mg Documented By: THUY Montelukast Sodium (Montelukast Sodium 10 Mg Tablet) 10 mg PO BEDTIME [facility] Last Admin: 09/23/22 20:21 Dose: 10 mg Documented By: MARQUITA Multivitamins/Vitamin C (Multivitamin Tablet) 1 tab PO DAILY [facility] Last Admin: 09/24/22 07:56 Dose: 1 tab Documented By: THUY Ondansetron HCl (Ondansetron Hcl 4 Mg/2 Ml Vial) 4 mg IVPUSH Q8H PRN PRN Reason: Nausea and Vomiting Last Admin: 09/23/22 03:12 Dose: 4 mg Documented By: JACKSON Pharmacy Consult (Consult Rx Perform Med Rec) 1 each MISCELLANE ONCE PRN PRN Reason: Consult order Pravastatin Sodium (Pravastatin Sodium 40 Mg Tablet) 40 mg PO BEDTIME [facility] Last Admin: 09/23/22 20:21 Dose: 40 mg Documented By: MARQUITA Prednisone (Prednisone 20 Mg Tablet) 40 mg PO DAILY [facility] Last Admin: 09/24/22 07:57 Dose: 40 mg Documented By: THUY Sodium Chloride (0.9 % Sodium Chloride Flush 3 Ml Syringe) 3 ml IVFLUSH QSHIFT [facility] Last Admin: 09/24/22 07:55 Dose: 3 ml Documented By: THUY Tamsulosin HCl (Tamsulosin Hcl 0.4 Mg Capsule) 0.4 mg PO DAILY [facility] Last Admin: 09/24/22 08:02 Dose: 0.4 mg Documented By: THUY Tiotropium [place] (Tiotropium [place] 2.5 Mcg Inhaler) 1 puff INHALE RDAILY [facility] Last Admin: 09/24/22 07:38 Dose: 1 puff Documented By: GINGER Trazodone HCl (Trazodone Hcl 100 Mg Tablet) 100 mg PO BEDTIME [facility] Last Admin: 09/23/22 20:21 Dose: 100 mg Documented By: MARQUITA Labs 09/21/22 05:17 09/20/22 05:58 Assessment and Plan (1) Acute respiratory distress: Status: Acute (2) Mood disorder: Status: Acute Plan 62-year-old male with pertinent history of essential hypertension, COPD not on home oxygen, mood disorder, mixed hyperlipidemia who presents to the emergency department for evaluation of dyspnea. #.?Acute hypoxic resp failure due to COPD exacerbation and underlying bronchitis. Responding to therapy -continue bronchodilators by Neb -continue Prednisone -wean off O2 to with goal of no more than 93 % -Doxycycline started 09/20, elevated WBC Scheduled and p.r.n. DuoNebs.?continue steroids.? Home O2 eval #.? Reactive leukocytosis, probably reactive, improving, monitor #.? Essential hypertension.?continue Losartan and metoprolol #.? Mood disorder.? Continue home mood stabilizers #.? Mixed hyperlipidemia: On statin DVT prophylaxis:? Lovenox need for inaptient: acute resp failure due to PNA, will reassess for discharge later today Time Spent With Patient Time: Total time managing care of this patient today ____ minutes. Quality Stroke Does the patient have a stroke diagnosis?: No VTE Prior VTE?: No VTE Risk Level:: Medical - moderate - high VTE Device Contraindication: Treatment Not Indicated VTE Drug Contraindication: N/A - Med Ordered
[2022-09-24] MEDS: LORazepam 0.5 MG TABLET PO (16:30)
[2022-09-24] MEDS: Montelukast Sodium 10 MG TABLET PO (21:35)
[2022-09-24] MEDS: Pravastatin Sodium 40 MG TABLET PO (21:35)
[2022-09-24] MEDS: traZODone HCL 100 MG TABLET PO (21:36)
[2022-09-24] MEDS: Docusate Sodium 100 MG CAPSULE PO (21:36)
[2022-09-25 02:14] VITALS: BP 156/78; PULSE 74; RESP 19; TEMP 36.2; O2SAT 95
[2022-09-25] MEDS: LORazepam 0.5 MG TABLET PO ×2 (02:14→08:26)
[2022-09-25] MEDS: Enoxaparin Sodium 40 MG/0.4 ML SYRINGE SUBCUT (02:14)
[2022-09-25 07:27] VITALS: BP 150/75; PULSE 85; RESP 18; TEMP 36.3; O2SAT 96
[2022-09-25] MEDS: Doxycycline Monohydrate 100 MG CAPSULE PO (07:40)
[2022-09-25] MEDS: 0.9 % Sodium Chloride Flush 3 ML SYRINGE IVFLUSH (07:42)
[2022-09-25] MEDS: Albuterol/Iprat 2.5/0.5MG 3 ML AMPUL.NEB INHALE ×2 (08:04→11:27)
[2022-09-25] MEDS: Fluticasone/Vilanterol 200/25 BLST.W.DEV 1 PUFF INHALE (08:04)
[2022-09-25 08:07] VITALS: PULSE 86; RESP 18
[2022-09-25] MEDS: Docusate Sodium 100 MG CAPSULE PO (08:22)
[2022-09-25] MEDS: Clopidogrel Bisulfate 75 MG TABLET PO (08:22)
[2022-09-25] MEDS: guaiFENesin LA 600 MG TAB.ER.12H PO (08:22)
[2022-09-25] MEDS: predniSONE 20 MG TABLET 40 MG PO (08:22)
[2022-09-25] MEDS: Loratadine 10 MG TABLET PO (08:22)
[2022-09-25] MEDS: Multivitamin TABLET 1 TAB PO (08:22)
[2022-09-25] MEDS: Losartan Potassium 50 MG TABLET 100 MG PO (08:23)
[2022-09-25] MEDS: Metoprolol Succinate ER 50 MG TAB.ER.24H PO (08:23)
[2022-09-25] MEDS: Aspirin Enteric Coated 81 MG TABLET.DR PO (08:23)
[2022-09-25] MEDS: Tamsulosin HCL 0.4 MG CAPSULE PO (08:24)
--- NOTE | 2022-09-25 10:19 | PM.DS ---
DS: Providers Provider Date of Service: 09/25/22 Date of admission: 09/20/22 01:52 Primary care physician: Emily Ramirez MD DS: Diagnosis Discharge Diagnosis (1) Acute respiratory distress: Status: Resolved (2) Mood disorder: Status: Resolved DS: Summary Hospital Course Hospital Course: Chief Complaint: Dyspnea This is a 62-year-old male with pertinent history of essential hypertension, COPD not on home oxygen, mood disorder, mixed hyperlipidemia who presents to the emergency department for evaluation of dyspnea.? Patient states he has been having dyspnea, worse with exertion that started 2 days prior to presentation.? Patient tried his home inhaler and home nebulizer but was without any relief.? Also has been having chills and nonproductive cough.? Patient states it has been awhile since he was admitted for exacerbation of his obstructive lung disease.? He denies fever, nausea, vomiting, palpitations, chest discomfort, abdominal pain, changes in urinary or bowel habits. In the emergency department, patient continued to be dyspneic and wheezing even after multiple DuoNeb treatments. Hospital course #.He presented with sob in the setting of advanced copd, work up revealed WBC of 25, CXR showed no pneumonia, O2 was around 91. He was admitted for treatment of acute hypoxic respiratory failure due to COPD exacerbation. His management consisted of IV corticosteroid (Solu-Medrol), bronchodilators by nebulizer, cough medication, and empiric antibiotics to cover for bronchitis (azithromycin and ceftriaxone). He claims later that time he was reacting to azithromycin causing him abdominal pain and therefore that was discontinued and in place was given doxycycline. His WBC has trended down presently at around 19,000. Overall he is feeling better his lung exam is much improved essentially without wheezes, his continued to cough which has been treated with cough medication. Overall recovery is optimistic. He is breathing easy, his oxygen saturation is presently around 97% on room air. He will be prescribed prednisone for 3 more days. #.? Reactive leukocytosis, probably reactive, improving, monitor #.? Essential hypertension.?continue Losartan and metoprolol #.? Mood disorder.? Continue home mood stabilizers #.? Mixed hyperlipidemia: On statin Time Spent with Patient Time attestation: Total time managing care of this patient today ____ minutes. Discharge coordination time: Greater than 30 minutes Quality: Safe Use of Opioids Does Pt have an Active Cancer Diagnosis on the Problem List?: No Quality: Stroke Does the patient have a stroke diagnosis?: No Physical Exam Vital Signs: Vital Signs: Last Vital Signs Temp 97.3 F 09/25/22 07:27 Pulse 86 09/25/22 08:07 Resp 18 09/25/22 08:07 BP 150/75 H 09/25/22 07:27 Pulse Ox 96 09/25/22 07:27 O2 Del Method Nasal Cannula 09/25/22 07:27 O2 Flow Rate 1 09/25/22 07:27 Oxygen Flow Rate 6 09/19/22 20:31 BMI result Body Mass Index 25.4 Discharge Plan Discharge Anticipated Discharge Date/Time: 09/25/22 10:17 Patient Disposition: Home, Self-Care Discharge Diagnosis: acute hypoxic respiratory failure due to COPD Referrals: Emily Ramirez MD [Primary Care Provider] - 1 Week Discharge Medications: New prednisone 20 mg tablet 20 mg PO DAILY Qty: 3 0RF doxycycline hyclate 100 mg capsule 100 mg PO BID Qty: 6 0RF guaifenesin [Mucinex] 600 mg tablet extended release 12hr 600 mg PO BID Qty: 10 0RF Continued albuterol sulfate 2.5 mg /3 mL (0.083 %) solution for nebulization 2.5 mg inhalation Q6H PRN (Reason: wheezing) trazodone 50 mg tablet 100 mg PO BEDTIME cetirizine 10 mg tablet 10 mg PO DAILY pravastatin 40 mg tablet 40 mg PO DAILY metoprolol succinate 50 mg tablet extended release 24 hr 50 mg PO DAILY clopidogrel 75 mg tablet 75 mg PO DAILY aspirin 81 mg tablet,delayed release (DR/EC) 81 mg PO DAILY tamsulosin 0.4 mg capsule 0.4 mg PO DAILY docusate sodium 100 mg capsule 100 mg PO BID montelukast 10 mg tablet 10 mg PO BEDTIME albuterol sulfate [Ventolin HFA] 90 mcg/actuation HFA aerosol inhaler 2 puff inhalation Q4H PRN (Reason: wheezing) losartan 100 mg tablet 100 mg PO DAILY fluticasone propionate 50 mcg/actuation spray,suspension 1 spray intranasal BID budesonide-formoterol [Symbicort] 160-4.5 mcg/actuation HFA aerosol inhaler 2 puff INHALATION BID Spiriva Respimat 1.25 mcg/actuation mist 2 puff INHALATION DAILY multivitamin Tablet 1 tab PO DAILY Discharge Orders: Discharge Order (Routine); Ordered 09/25/22 Ordered By: Chintan Burnette Diet: Advance to usual diet Activity on Discharge: As tolerated Stand Alone Forms: Patient Portal Discharge page Care Plan Goals: Full recovery from COPD exacerbation, respiratory failure Health Concerns: COPD Plan of Treatment: Take prednisone as directed, use inhalers as directed take doxycycline for bronchitis and follow up with your primary care physician within a week, call for appointment Assessment: As above Discharge Date/Time: 09/25/22 11:49
[2022-09-25 10:44] VITALS: RESP 16; O2SAT 95
[2022-09-25] MEDS: Fluticasone Propionate Nasal 16 GM SPRAY 1 SPRAY NOSTRIL-B (10:44)
--- NOTE | 2022-09-25 11:10 | MHC.CM.PN ---
PT WILL DC HOME TODAY WITH NO NEW SERVICES [employer] TO TRANSPORT
[2022-09-25 11:27] VITALS: PULSE 85; RESP 16; O2SAT 92
[2022-09-25 11:30] LABS: Hemoglobin 14.2 g/dl (14.0-18.0); Mean Corpuscular HGB Conc 34.6 g/dl (31.0-36.0); Mean Corpuscular Hemoglobin 31.6 pg (27.0-33.0); Mean Corpuscular Volume 91.3 fL (80.0-98.0); Mean Platelet Volume 8.6 fL (9.4-12.4); Platelet Count 406 X10*3/uL (160-400); Red Blood Count 4.49 X10*6/uL (4.60-5.80); Red Cell Distribution Width 13.6 % (11.0-16.0); White Blood Count 20.3 X10*3/uL (4.8-10.8)
== END 2022-09-25 11:49 | disposition home or self-care (01) ==
LOC: HO.ED 09-20 01:55 → HO.EDOVER 09-20 01:58 → HO.S3 09-20 15:14
PROVIDERS: Admitting Provider Student in an Organized Health Care Education/Training Program; Emergency Provider Emergency Medicine; PCP Internal Medicine; Visit Provider Internal Medicine
DX: R06.03 Acute respiratory distress (principal); J44.1 Chronic obstructive pulmonary disease with (acute) exacerbation; R06.02 Shortness of breath; Z20.822 Contact with and (suspected) exposure to COVID-19; D72.828 Other elevated white blood cell count; G62.9 Polyneuropathy, unspecified; I10 Essential (primary) hypertension; E78.5 Hyperlipidemia, unspecified; F39 Unspecified mood [affective] disorder; Z79.899 Other long term (current) drug therapy
CPT/HCPCS: 36415; 71045; 80048; 82803; 83605; 83880; 84484; 85025; 85027; 87040; 87635; 93005; 94640; 96361; 96365; 96366; 96367; 96372; 96375; 96376; 99221; 99285; J0456; J1650; J1956; J2405; J2920; J2930; J3475

== ENCOUNTER 2022-11-13 11:01 | Inpatient (IN) | payer MEDICAID, SELFPAY ==
[2022-11-13] VITALS (12 sets, daily range): BP systolic 128–162; BP diastolic 62–96; PULSE 105–132; RESP 17–31; TEMP 36.3–36.9; O2SAT 94–98; BMI 24.0
--- NOTE | ~2022-11-13 | XR_ITS ---
EXAMINATION: XR CHEST CLINICAL INFORMATION: Hypoxia COMPARISON: 09/19/2022 TECHNIQUE: Frontal view of the chest was obtained. FINDINGS: Lungs are hyperexpanded with flattened hemidiaphragms, architectural distortion comminuted with hyperlucency, consistent with emphysema. Pleural parenchymal scarring is evident in the right lung apex. There is increased patchy airspace opacification in the right upper lobe as compared to prior, concerning for superimposed pneumonia. No new consolidation in the left lung. No pneumothorax or pleural effusion. Cardiac and mediastinal contours are normal. Pulmonary vasculature is unremarkable. Degenerative spondylosis is present in the thoracic spine. No acute osseous findings XR/XR chest 1V IMPRESSION: 1. Increased patchy airspace opacification in the right upper lobe, concerning for pneumonia. 2. Severe emphysema.
--- NOTE | 2022-11-13 11:17 | ECG_ITS ---
Test Reason : cp Blood Pressure : / mmHG Vent. Rate : 106 BPM Atrial Rate : 106 BPM P-R Int : 118 ms QRS Dur : 078 ms QT Int : 344 ms P-R-T Axes : 069 058 052 degrees QTc Int : 456 ms Sinus tachycardia Otherwise normal ECG When compared with ECG of 19-SEP-2022 20:32, No significant change was found Referred By: Zaki Barriga Electronically Signed By:ROSIE LIVE
[2022-11-13 11:23] LABS: MANUAL DIFF FLAG NO
[2022-11-13 11:24] LABS: Basophils Percent Auto 0.3 % (0-2); Eosinophils Absolute Auto 0.1 X10*3/uL (0.0-0.4); Eosinophils Percent Auto 0.9 % (0-4); Hematocrit 36.9 % (42.0-52.0); Hemoglobin 12.3 g/dl (14.0-18.0); Imm Gran Abs Auto 0.08 X10*3/uL (0.00-0.03); Imm Gran Pct Auto 0.6 % (0.0-0.4); Lymphocytes Absolute Auto 1.9 X10*3/uL (1.2-4.9); Lymphocytes Percent Auto 13.3 % (20-40); Mean Corpuscular HGB Conc 33.3 g/dl (31.0-36.0); Mean Corpuscular Hemoglobin 30.5 pg (27.0-33.0); Mean Corpuscular Volume 91.6 fL (80.0-98.0); Mean Platelet Volume 8.6 fL (9.4-12.4); Monocytes Absolute Auto 1.4 X10*3/uL (0.1-1.2); Monocytes Percent Auto 9.6 % (2-11); Neutrophils Absolute Auto 10.6 x10*3/uL (2.0-8.3); Neutrophils Percent Auto 75.3 % (45-73); Platelet Count 394 X10*3/uL (160-400); Red Blood Count 4.03 X10*6/uL (4.60-5.80); Red Cell Distribution Width 13.9 % (11.0-16.0); White Blood Count 14.1 X10*3/uL (4.8-10.8)
[2022-11-13 11:43] LABS: Troponin-I High Sensitivity < 2.7 ng/L (<3.5-35.0)
[2022-11-13] MEDS: Albuterol/Iprat 2.5/0.5MG 3 ML AMPUL.NEB INHALE ×3 (11:43→19:34)
--- NOTE | 2022-11-13 11:48 | PC.NURSE ---
patient presents to the ED with increase of SOB, patient lung sounds tight and wheezy. placed on o2, receiving neb now.
[2022-11-13] MEDS: methylPREDNISolone Sod Succ 125 MG/2 ML VIAL 60 MG IVPUSH (11:58)
[2022-11-13] MEDS: guaiFEN/Codeine SF 200/20/10ML 10 ML LIQUID PO (12:01)
--- NOTE | 2022-11-13 12:23 | ED_ITS ---
HPI - Chest Pain General Chief Complaint: Chest Pain Stated Complaint: PROD COUGH, SOB 93%, HTN 168/98 PER EMS Time Seen by Provider: 11/13/22 11:16 Source: patient, EMS and old records reviewed Mode of arrival: EMS Limitations: no limitations History of Present Illness HPI narrative: 62 yo male with history of HTN, COPD, active smoker, HLD with recent admission to [facility] in September for CAP who presents to the ER for evaluation of 3-4 days of worsening SOB and productive cough. He states he gets SOB with minimal exertion and it has been getting worse for a few days now. He states he started having a productive cough of yellow phelgm that has since turned green. He gets into violent coughing fits that cause chest pain and difficulty breathing. No blood in his phlegm. No fever, chills, N/V/D or abdominal pain. He has had decreased PO intake and feels very weak. He is not on O2. He has cut back his smoking and only has a few cigarettes per day. MD complaint: chest pain Pertinent past history: other Onset (ago): day(s) (4) Timing of current episode: episodic Prior episodes: Yes Onset: other (w/ coughing) Pain location: parasternal Pain radiation: none Severity: moderate Quality: aching and sharp Relieving factors: nothing Exacerbating factors: other (coughing) Context: recent illness Associated symptoms: cough Treatment prior to arrival: oxygen Risk Factors Coronary artery disease risk factors: smoking history and hypertension Thoracic aortic dissection risk factors: longstanding hypertension Related Data Home Medications Medication Instructions Recorded Confirmed albuterol sulfate 2.5 mg/3 mL 2.5 mg inhalation Q6H PRN wheezing 09/20/22 09/20/22 (0.083 %) solution for nebulization albuterol sulfate 90 mcg/actuation 2 puff inhalation Q4H PRN wheezing 09/20/22 09/20/22 aerosol inhaler (Ventolin HFA) aspirin 81 mg tablet,delayed 81 mg PO DAILY 09/20/22 09/20/22 release budesonide-formoterol HFA 160 2 puff inhalation BID 09/20/22 09/20/22 mcg-4.5 mcg/actuation aerosol inhaler (Symbicort) cetirizine 10 mg tablet 10 mg PO DAILY 09/20/22 09/20/22 clopidogrel 75 mg tablet 75 mg PO DAILY 09/20/22 09/20/22 docusate sodium 100 mg capsule 100 mg PO BID 09/20/22 09/20/22 fluticasone propionate 50 1 spray intranasal BID 09/20/22 09/20/22 mcg/actuation nasal spray,suspension losartan 100 mg tablet 100 mg PO DAILY 09/20/22 09/20/22 metoprolol succinate 50 mg 50 mg PO DAILY 09/20/22 09/20/22 tablet,extended release 24 hr montelukast 10 mg tablet 10 mg PO BEDTIME 09/20/22 09/20/22 multivitamin 1 tab PO DAILY 09/20/22 09/20/22 pravastatin 40 mg tablet 40 mg PO DAILY 09/20/22 09/20/22 tamsulosin 0.4 mg capsule 0.4 mg PO DAILY 09/20/22 09/20/22 tiotropium bromide 1.25 2 puff inhalation DAILY 09/20/22 09/20/22 mcg/actuation mist for inhalation (Spiriva Respimat) trazodone 50 mg tablet 100 mg PO BEDTIME 09/20/22 09/20/22 Previous Rx's Medication Instructions Recorded doxycycline hyclate 100 mg capsule 100 mg PO BID #6 caps 09/25/22 guaifenesin 600 mg tablet, 600 mg PO BID #10 tabs 09/25/22 extended release 12 hr (Mucinex) prednisone 20 mg tablet 20 mg PO DAILY #3 tabs 09/25/22 Allergies Allergy/AdvReac Type Severity Reaction Status Date / Time lisinopril [LISINOPRIL] Allergy Intermediate UNKNOWN Verified 09/20/22 16:13 Penicillins [PENICILLINS] Allergy Unknown UNKNOWN Verified 09/20/22 16:13 UNK ABX Allergy Unknown Itching Uncoded 09/20/22 16:13 UNK BP MED Allergy Unknown Itching Uncoded 09/20/22 16:13 Review of Systems Review of Systems: Yes all other systems are reviewed and are negative PMFSH Past Medical History Medical History Asthma COPD (chronic obstructive pulmonary disease) Essential hypertension Mixed hyperlipidemia Mood disorder Social History Social History Alcohol intake: never Patient Tobacco Use Status: Never used Tobacco Advance Directives: Yes Advance Directives on File: Yes Advance Directives Date on File: 09/20/22 service: No Current occupational status: unemployed Physical Exam Vital Signs: Vital Signs: Last Vital Signs Temp 97.5 F 11/13/22 12:21 Pulse 116 H 11/13/22 13:32 Resp 20 11/13/22 13:32 BP 128/67 11/13/22 12:21 Pulse Ox 95 11/13/22 12:21 O2 Del Method Nasal Cannula 11/13/22 12:21 O2 Flow Rate 1 11/13/22 12:21 Oxygen Flow Rate 3 11/13/22 11:07 BMI result Body Mass Index 24.0 Appearance: Alert. Oriented X3. No acute distress. Head: normocephalic, atraumatic. Eyes: Pupils equal, round and reactive to light. ENT: Pharynx normal. No tonsillar swelling or exudate. Neck: Normal inspection. Neck supple. CVS: Tachycardic, regular rhythm, rate 110s. Pulses normal. Respiratory: Mild respiratory distress w/ purse lip breathing, RR mid 20s.. Breath sounds coarse throughout with end expiratory wheezes in bilateral lower lobes. Abdomen: Soft and nontender. +BS x4 Skin: Skin warm and dry. Normal skin color. Normal skin turgor. No rashes. Extremities: No lower extremity edema. No joint swelling. Neuro/psych: Oriented X 3. No motor deficit. No sensory deficit. CN II-XII int act. Normal speech and cognition. Medications Administered Discontinued Medications Generic Name Dose Route Start Last Admin Trade Name Pepitoq PRN Reason Stop Dose Admin Albuterol Sulfate 5 mg 11/13/22 13:23 11/13/22 13:32 Albuterol Sulfate (0.083%) 2.5 Mg/3 Ml Vial.Neb INHALE 11/13/22 13:24 5 mg ONCE ONE Administration Albuterol/Ipratropium 3 ml 11/13/22 11:30 11/13/22 11:43 Albuterol/Iprat 2.5/0.5mg 3 Ml Ampul.Neb INHALE 11/13/22 11:31 3 ml ONCE ONE Administration Guaifenesin/Codeine Phosphate 10 ml 11/13/22 11:53 11/13/22 12:01 Guaifen/Codeine Sf 200/20/10ml 10 Ml Liquid PO 11/13/22 11:54 10 ml ONCE ONE Administration Methylprednisolone Sodium Succinate 60 mg 11/13/22 11:52 11/13/22 11:58 Methylprednisolone Sod Succ 125 Mg/2 Ml Vial IVPUSH 11/13/22 11:53 60 mg ONCE ONE Administration Medical Decision Making Medical Decision Making MDM Narrative: 62 yo male with history of HTN, COPD, active smoker, HLD with recent admission to [facility] in September for CAP who presents to the ER for evaluation of 3-4 days of worsening SOB and productive cough. SpO2 89% on arrival to the ER requiring supplemental O2. Breath sounds coarse and wheezy. HR 110s but afebrile, likely due to WOB and SOB. Given Duoneb x1, solumedrol 60 mg IV x1, antitussives. Airways opened up a bit and now has more wheezing at the bases but feels somewhat better. HR remains 110s. Lactic acid is normal. WBC 14K. BNP is 23. IVF ordered. His CXR was reviewed showing new RUL infiltrates c/w PNA. Given recent admission will treat for HCAP. Will plant to admit for further management Differential Diagnosis Differential Diagnoses: The differential diagnosis associated with the presentation includes HCAP, aspiration pneumonia, sepsis, bronchitis, viral infection, COPD exacerbation Admission/Observation Consideration of admission/observation: Escalation of care including admission/observation considered COPD exacerbation + HCAP Consult Healthcare Provider Management of the patient was discussed with: Hospitalist Dr. Georgiana BATISTA for admission Lab Data [facility] Lab Attestation statement: I reviewed the patient's lab results. leukocytosis, anemia 11/13/22 11:19 11/13/22 11:17 Labs: Lab Results 11/13/22 11/13/22 11/13/22 Range/Units 11:19 11:19 12:14 WBC 14.1 H (4.8-10.8) X10*3/uL RBC 4.03 L (4.60-5.80) X10*6/uL Hgb 12.3 L (14.0-18.0) g/dl Hct 36.9 L (42.0-52.0) % MCV 91.6 (80.0-98.0) fL MCH 30.5 (27.0-33.0) pg MCHC 33.3 (31.0-36.0) g/dl RDW 13.9 (11.0-16.0) % Plt Count 394 (160-400) X10*3/uL MPV 8.6 L (9.4-12.4) fL Immature Gran % (Auto) 0.6 H (0.0-0.4) % Neut % (Auto) 75.3 H (45-73) % Lymph % (Auto) 13.3 L (20-40) % [place] % (Auto) 9.6 (2-11) % Eos % (Auto) 0.9 (0-4) % Baso % (Auto) 0.3 (0-2) % Lymph # (Auto) 1.9 (1.2-4.9) X10*3/uL [place] # (Auto) 1.4 H (0.1-1.2) X10*3/uL Eos # (Auto) 0.1 (0.0-0.4) X10*3/uL Baso # (Auto) 0.0 (0.0-0.2) X10*3/uL Abs Immat Gran (auto) 0.08 H (0.00-0.03) X10*3/uL Absolute Neuts (auto) 10.6 H (2.0-8.3) x10*3/uL Absolute Nucleated RBC 0.000 (0.0-0.012) X10*3/uL Nucleated RBC % (auto) 0.0 (0.0-0.2) /100WBC Sodium 137 (135-145) mmol/L Potassium 3.9 (3.3-5.1) mmol/L Chloride 99 (96-108) mmol/L Carbon Dioxide 20 L (22-29) mmol/L Anion Gap 22 H (12-20) BUN 12 (9-16) mg/dL Creatinine 0.86 (0.5-1.4) mg/dL Estim Creat Clear Calc 73.6 Estimated GFR > 60 Random Glucose 90 (60-115) mg/dL Lactic Acid (0.5-2.0) mmol/L Calcium 10.0 D (8.4-10.2) mg/dL Magnesium 2.3 (1.6-2.6) mg/dL Total Bilirubin 0.5 (0.0-1.0) mg/dL AST 12 (5-37) U/L ALT 10 (0-40) U/L Alkaline Phosphatase 86 (39-117) U/L Troponin I High Sens < 2.7 (<3.5-35.0) ng/L B-Natriuretic Peptide (<100) pg/mL Total Protein 8.4 H (6.5-8.0) g/dL Albumin 4.0 (3.5-5.0) g/dL COVID-19 (KISHA) (Negative) COVID-19 Clin Com Influenza Type A (MIKEY) (Negative) Influenza Type B (MIKEY) (Negative) Influenza A & B Note 11/13/22 11/13/22 11/13/22 Range/Units 12:14 12:14 12:14 WBC (4.8-10.8) X10*3/uL RBC (4.60-5.80) X10*6/uL Hgb (14.0-18.0) g/dl Hct (42.0-52.0) % MCV (80.0-98.0) fL MCH (27.0-33.0) pg MCHC (31.0-36.0) g/dl RDW (11.0-16.0) % Plt Count (160-400) X10*3/uL MPV (9.4-12.4) fL Immature Gran % (Auto) (0.0-0.4) % Neut % (Auto) (45-73) % Lymph % (Auto) (20-40) % [place] % (Auto) (2-11) % Eos % (Auto) (0-4) % Baso % (Auto) (0-2) % Lymph # (Auto) (1.2-4.9) X10*3/uL [place] # (Auto) (0.1-1.2) X10*3/uL Eos # (Auto) (0.0-0.4) X10*3/uL Baso # (Auto) (0.0-0.2) X10*3/uL Abs Immat Gran (auto) (0.00-0.03) X10*3/uL Absolute Neuts (auto) (2.0-8.3) x10*3/uL Absolute Nucleated RBC (0.0-0.012) X10*3/uL Nucleated RBC % (auto) (0.0-0.2) /100WBC Sodium (135-145) mmol/L Potassium (3.3-5.1) mmol/L Chloride (96-108) mmol/L Carbon Dioxide (22-29) mmol/L Anion Gap (12-20) BUN (9-16) mg/dL Creatinine (0.5-1.4) mg/dL Estim Creat Clear Calc Estimated GFR Random Glucose (60-115) mg/dL Lactic Acid 1.1 (0.5-2.0) mmol/L Calcium (8.4-10.2) mg/dL Magnesium (1.6-2.6) mg/dL Total Bilirubin (0.0-1.0) mg/dL AST (5-37) U/L ALT (0-40) U/L Alkaline Phosphatase (39-117) U/L Troponin I High Sens (<3.5-35.0) ng/L B-Natriuretic Peptide 23 (<100) pg/mL Total Protein (6.5-8.0) g/dL Albumin (3.5-5.0) g/dL COVID-19 (KISHA) Negative (Negative) COVID-19 Clin Com See Note Influenza Type A (MIKEY) (Negative) Influenza Type B (MIKEY) (Negative) Influenza A & B Note 11/13/22 Range/Units 12:14 WBC (4.8-10.8) X10*3/uL RBC (4.60-5.80) X10*6/uL Hgb (14.0-18.0) g/dl Hct (42.0-52.0) % MCV (80.0-98.0) fL MCH (27.0-33.0) pg MCHC (31.0-36.0) g/dl RDW (11.0-16.0) % Plt Count (160-400) X10*3/uL MPV (9.4-12.4) fL Immature Gran % (Auto) (0.0-0.4) % Neut % (Auto) (45-73) % Lymph % (Auto) (20-40) % [place] % (Auto) (2-11) % Eos % (Auto) (0-4) % Baso % (Auto) (0-2) % Lymph # (Auto) (1.2-4.9) X10*3/uL [place] # (Auto) (0.1-1.2) X10*3/uL Eos # (Auto) (0.0-0.4) X10*3/uL Baso # (Auto) (0.0-0.2) X10*3/uL Abs Immat Gran (auto) (0.00-0.03) X10*3/uL Absolute Neuts (auto) (2.0-8.3) x10*3/uL Absolute Nucleated RBC (0.0-0.012) X10*3/uL Nucleated RBC % (auto) (0.0-0.2) /100WBC Sodium (135-145) mmol/L Potassium (3.3-5.1) mmol/L Chloride (96-108) mmol/L Carbon Dioxide (22-29) mmol/L Anion Gap (12-20) BUN (9-16) mg/dL Creatinine (0.5-1.4) mg/dL Estim Creat Clear Calc Estimated GFR Random Glucose (60-115) mg/dL Lactic Acid (0.5-2.0) mmol/L Calcium (8.4-10.2) mg/dL Magnesium (1.6-2.6) mg/dL Total Bilirubin (0.0-1.0) mg/dL AST (5-37) U/L ALT (0-40) U/L Alkaline Phosphatase (39-117) U/L Troponin I High Sens (<3.5-35.0) ng/L B-Natriuretic Peptide (<100) pg/mL Total Protein (6.5-8.0) g/dL Albumin (3.5-5.0) g/dL COVID-19 (KISHA) (Negative) COVID-19 Clin Com Influenza Type A (MIKEY) Negative (Negative) Influenza Type B (MIKEY) Negative (Negative) Influenza A & B Note See Note Independent Interpretation I performed an independent interpretation of an: Plain X-Ray Interpretation: RUL opacities c/w PNA which are new compared to September, w/ radiology EKG w/ sinus tachycardia, HR 106, normal IA interval, normal QTc, No ST segment elevations or depressions Radiology Impression Discussion of test interpretation with radiology: I have reviewed the radiologist's reading. Radiologist Impression: ?XR/XR chest 1V IMPRESSION: 1.? Increased patchy airspace opacification in the right upper lobe, concerning for pneumonia. 2.? Severe emphysema. Independent Historian Clinical information obtained from an independent historian. History obtained from or confirmed by: EMS External Record Review External record reviewed: Inpatient record, Outpatient record, Prior outpatient labs and Prior outpatient radiology Prescription Management I considered prescription management with: Antibiotic Chronic Conditions Patient?s care impacted by: Hypertension and Other (COPD, smoking) Social Determinants Patient?s care significantly limited by Social Determinants of Health including: Other Social Determinant of Health Critical Care Time Critical Care Time Critical Care Time: Yes Total Critical Care Time: 42 Attestation: I have personally provided critical care time exclusive of time spent on separately billable procedures. Time includes review of lab data, radiology results, discussion with consultants, and monitoring for potential decompensation. Intervention performed as documented. Discharge Plan Discharge Clinical Impression: HCAP (healthcare-associated pneumonia), COPD exacerbation Patient Disposition: Admitted As Inpatient
[2022-11-13 12:44] LABS: Lactic Acid 1.1 mmol/L (0.5-2.0)
[2022-11-13 12:51] LABS: Alanine Aminotransferase 10 U/L (0-40); Alkaline Phosphatase 86 U/L (39-117); Anion Gap 22 (12-20); Aspartate Amino Transferase 12 U/L (5-37); Bilirubin Total 0.5 mg/dL (0.0-1.0); Blood Urea Nitrogen 12 mg/dL (9-16); Carbon Dioxide 20 mmol/L (22-29); Chloride 99 mmol/L (96-108); Creatinine Clr Calc Pharmacy 73.6; Estimated Glomerular Filt Rate > 60; Glucose Random 90 mg/dL (60-115); Magnesium 2.3 mg/dL (1.6-2.6); Potassium 3.9 mmol/L (3.3-5.1); Sodium 137 mmol/L (135-145); Total Protein 8.4 g/dL (6.5-8.0)
[2022-11-13 12:53] LABS: B Type Natriuretic Peptide 23 pg/mL (<100)
[2022-11-13 13:05] LABS: COVID-19 Test Negative (Negative); IDNOW Serial# 08D9AD1C; IDNOW Serial# BCCEAD1C; Influenza A Negative (Negative); Influenza B2 Negative (Negative)
[2022-11-13] MEDS: Albuterol Sulfate (0.083%) 2.5 MG/3 ML VIAL.NEB 5 MG INHALE (13:32)
[2022-11-13] MEDS: cefEPime HCl 2 GM in 0.9 % Sodium Chloride 50 ML IV ×2 (14:02→21:32)
--- NOTE | 2022-11-13 14:04 | PHA.MEDREC ---
Pharmacy Consult ? Medication Reconciliation Pharmacy has completed the medication reconciliation. spoke with patient and confirmed medications
[2022-11-13] MEDS: vancomycin HCL 1,500 MG in 0.9 % Sodium Chloride 500 ML 333.33 MG IV (14:29)
--- NOTE | 2022-11-13 14:50 | P.HPHOSP_ITS ---
The patient was seen and evaluated with LO Villalta. I agree with her note, assessment and plan with the following. A 62 years old male with PMH of COPD, HLD, Smoker who was recently discharged from the hospital for CAP presenting with SOB and cough with evidence of new pneumonia. To treat with broad spectrum antibiotics O2 supplement, will need home O2 eval Duonebs ATC and PRN Rest of evaluations by PA note. History of Present Illness Date of Service: 11/13/22 Attending physician on admission: Meche Leon Chief Complaint: cough, sob 62-year-old male with history of hypertension asthma / COPD overlap, hyperlipidemia was a current everyday smoker with recent admission to [facility] 6 weeks ago for community-acquired pneumonia presents to the ED earlier today for evaluation worsening shortness of breath and productive cough ongoing for the last 3-4 days. He reports shortness of breath with minimal exertion that has been worsening for several days. He states he does pulse oximeter at home and desats to 87-88% with exertion he does not use oxygen at baseline. He has had subjective fevers and generalized weakness as well as anorexia. Denies any known sick contacts. Denies any shaking chills, sore throat, sinus pressure, abdominal pain, nausea, vomiting, diarrhea, lightheadedness, palpitations, or chest pressure. He does endorse bilateral pleuritic chest pain however. On arrival, patient tachycardic to 123, tachypneic to 28, hypertensive to 162/84 and hypoxic to 88% placed on 3 L supplemental O2. he has leukocytosis of 14.1. Renal function normal, electrolyte levels normal. Troponin below detectable limits, BNP normal. Procalcitonin pending. Nasal MRSA screen pending. Negative for COVID-19, influenza. Chest x-ray shows right upper lobe patchy airspace opacity concerning for pneumonia as well as severe emphysema. In the ED, given 60 mg IV methylprednisolone, cefepime, vancomycin, and DuoNeb. Review of Systems Review of Systems: General: No malaise, unintentional weight loss. +subj fevers HEENT: No blurred vision, diplopia. No sore throat, nasal congestion, rhinorrhea, sinus pain, ear pain Cardiovascular: No chest pain, palpitations, or leg edema Respiratory: +sob,+cough. No wheezing GI: No abdominal pain, nausea, vomiting, diarrhea, constipation, melena, hematochezia : No dysuria, hematuria, increased urinary frequency, decreased urinary output MSK: No myalgia, back pain Neuro: No headaches, weakness, paresthesias. +ble neuropathy Skin: No rashes or lesions [facility] Medical History Asthma COPD (chronic obstructive pulmonary disease) Essential hypertension Mixed hyperlipidemia Mood disorder Social History Alcohol intake: never Patient Tobacco Use Status: Never used Tobacco Advance Directives: Yes Advance Directives on File: Yes Advance Directives Date on File: 09/20/22 service: No Current occupational status: unemployed Meds Allergies Allergy/AdvReac Type Severity Reaction Status Date / Time lisinopril [LISINOPRIL] Allergy Intermediate UNKNOWN Verified 09/20/22 16:13 Penicillins [PENICILLINS] Allergy Unknown UNKNOWN Verified 09/20/22 16:13 UNK ABX Allergy Unknown Itching Uncoded 09/20/22 16:13 UNK BP MED Allergy Unknown Itching Uncoded 09/20/22 16:13 Active Medications: Current Medications Acetaminophen (Acetaminophen 325 Mg Tablet) 650 mg PO Q6H PRN PRN Reason: Pain, Mild (Pain Scale 1-3) Albuterol/Ipratropium (Albuterol/Iprat 2.5/0.5mg 3 Ml Ampul.Neb) 3 ml INHALE RQ4H WHILE AWAKE DINH Docusate Sodium (Docusate Sodium 100 Mg Capsule) 100 mg PO DAILY PRN PRN Reason: Constipation Enoxaparin Sodium (Enoxaparin Sodium 40 Mg/0.4 Ml Syringe) 40 mg SUBCUT Q24H DINH Ondansetron HCl (Ondansetron Hcl 4 Mg/2 Ml Vial) 4 mg IVPUSH Q8H PRN PRN Reason: Nausea and Vomiting Pharmacy Consult (Consult Rx Perform Med Rec) 1 each MISCELLANE ONCE PRN PRN Reason: Consult order Sodium Chloride (0.9 % Sodium Chloride Flush 3 Ml Syringe) 3 ml IVFLUSH QSHIFT [facility] Home Medications Medication Instructions Recorded Confirmed Last Taken Type albuterol sulfate 2.5 mg/3 mL 2.5 mg inhalation Q4-6H PRN 09/20/22 11/13/22 09/19/22 History (0.083 %) solution for nebulization wheezing albuterol sulfate 90 mcg/actuation 2 puff inhalation Q4H PRN wheezing 09/20/22 11/13/22 09/19/22 History aerosol inhaler (Ventolin HFA) aspirin 81 mg tablet,delayed 81 mg PO DAILY 09/20/22 11/13/22 09/19/22 History release budesonide-formoterol HFA 160 2 puff inhalation BID 09/20/22 11/13/22 09/19/22 History mcg-4.5 mcg/actuation aerosol inhaler (Symbicort) cetirizine 10 mg tablet 10 mg PO DAILY 09/20/22 11/13/22 09/19/22 History docusate sodium 100 mg capsule 100 mg PO BID PRN Constipation 09/20/22 11/13/22 09/19/22 History fluticasone propionate 50 1 spray intranasal BID PRN Allergy 09/20/22 11/13/22 09/19/22 History mcg/actuation nasal Symptoms spray,suspension losartan 100 mg tablet 100 mg PO DAILY 09/20/22 11/13/22 09/19/22 History metoprolol succinate 50 mg 50 mg PO DAILY 09/20/22 11/13/22 09/19/22 History tablet,extended release 24 hr montelukast 10 mg tablet 10 mg PO BEDTIME 09/20/22 11/13/22 09/19/22 History multivitamin 1 tab PO DAILY 09/20/22 11/13/22 09/19/22 History pravastatin 40 mg tablet 40 mg PO DAILY 09/20/22 11/13/22 09/19/22 History tamsulosin 0.4 mg capsule 0.4 mg PO DAILY 09/20/22 11/13/22 09/19/22 History tiotropium bromide 1.25 2 puff inhalation DAILY 09/20/22 11/13/22 09/19/22 History mcg/actuation mist for inhalation (Spiriva Respimat) trazodone 50 mg tablet 100 mg PO BEDTIME 09/20/22 11/13/22 09/19/22 History guaifenesin 600 mg tablet, 600 mg PO BID PRN Cold Symptoms 11/13/22 11/13/22 Unknown History extended release 12 hr (Mucinex) Physical Exam Vital Signs and Narrative: Vital Signs: Last Vital Signs Temp 98.0 F 11/13/22 13:55 Pulse 123 H 11/13/22 13:55 Resp 31 H 11/13/22 13:55 BP 147/81 H 11/13/22 13:55 Pulse Ox 95 11/13/22 13:55 O2 Del Method Room Air 11/13/22 13:55 O2 Flow Rate 1 11/13/22 12:21 Oxygen Flow Rate 3 11/13/22 11:07 BMI result Body Mass Index 24.0 Constitutional - Awake and Alert, No apparent distress Eyes - PERRLA, EOMI Cardiovascular - S1S2, RRR, No edema Respiratory - Normal lung expansion, Normal respiratory effort, mild respiratory distress with pursed lips breathing, CTA bilaterally Gastrointestinal - NT / ND; +BS; No rebound or guarding Extremities - no calf tenderness bilaterally, no swelling Skin - Warm/Dry Neurological - Alert & oriented x3, CN II-XII in tact, 5/5 strength BUE and BLE Psychological - Appropriate affect Results Labs 11/13/22 11:19 11/13/22 12:14 Labs: Laboratory Results - last 24 hr 11/13/22 11/13/22 11/13/22 11:19 12:14 12:14 MCV 91.6 MCH 30.5 MCHC 33.3 RDW 13.9 Plt Count 394 MPV 8.6 L Immature Gran % (Auto) 0.6 H Neut % (Auto) 75.3 H Lymph % (Auto) 13.3 L [place] % (Auto) 9.6 Eos % (Auto) 0.9 Baso % (Auto) 0.3 Lymph # (Auto) 1.9 [place] # (Auto) 1.4 H Eos # (Auto) 0.1 Baso # (Auto) 0.0 Abs Immat Gran (auto) 0.08 H Absolute Neuts (auto) 10.6 H Absolute Nucleated RBC 0.000 Nucleated RBC % (auto) 0.0 Anion Gap 22 H Estim Creat Clear Calc 73.6 Estimated GFR > 60 Random Glucose 90 Lactic Acid Calcium 10.0 D Magnesium 2.3 Total Bilirubin 0.5 AST 12 ALT 10 Alkaline Phosphatase 86 B-Natriuretic Peptide Total Protein 8.4 H Albumin 4.0 COVID-19 (KISHA) Negative COVID-19 Clin Com See Note Influenza Type A (MIKEY) Influenza Type B (MIKEY) Influenza A & B Note 11/13/22 11/13/22 11/13/22 12:14 12:14 12:14 MCV MCH MCHC RDW Plt Count MPV Immature Gran % (Auto) Neut % (Auto) Lymph % (Auto) [place] % (Auto) Eos % (Auto) Baso % (Auto) Lymph # (Auto) [place] # (Auto) Eos # (Auto) Baso # (Auto) Abs Immat Gran (auto) Absolute Neuts (auto) Absolute Nucleated RBC Nucleated RBC % (auto) Anion Gap Estim Creat Clear Calc Estimated GFR Random Glucose Lactic Acid 1.1 Calcium Magnesium Total Bilirubin AST ALT Alkaline Phosphatase B-Natriuretic Peptide 23 Total Protein Albumin COVID-19 (KISHA) COVID-19 Clin Com Influenza Type A (MIKEY) Negative Influenza Type B (MIKEY) Negative Influenza A & B Note See Note Imaging Radiologist's Impressions: Impressions Chest X-Ray 11/13/22 11:46 IMPRESSION: 1. Increased patchy airspace opacification in the right upper lobe, concerning for pneumonia. 2. Severe emphysema. Assessment and Plan (1) HCAP (healthcare-associated pneumonia): Status: Acute (2) Sepsis: Status: Acute Plan 62-year-old male with history of? hypertension asthma / COPD overlap, hyperlipidemia was a current everyday smoker with recent admission to [facility] 6 weeks ago for community-acquired pneumonia admitted for HCAP and acute hypoxemic respiratory failure. #Acute HCAP with sepsis -Leukocytosis 14.1, tachycardia, tachypneic. Lactic acid normal, no end organ damage. No severe sepsis/shock -recent d/c on 09/25 for CAP -CXR showed RUL airspace opacity -IV cefepime and vancomycin -Duonebs q4h while awake, albuterol prn -symptomatic management -nasal MRSA screen, strep pneumo ag, legionella ag, sputum culture pending -Follow CBC, BC #Acute hypoxemic respiratory failure -2/2 above -abx as above, duonebs/albuterol as above -continue supplemental o2 to maintain oximetry 90-92% -May need home O2 eval #Asthma/COPD overlap -no acute excerabation -plan as above -continue maintenance inhalers -hold on further steroids for now #Peripheral neuropathy- chronic, intermittent -Vitamin b12, folic acid, tsh levels pending #HTN -continue home meds #HLD -continue statin dvt prophylaxis- lovenox full code pt requires inpt stay at least 2 midnights for management of HCAP with sepsis and acute respiratory failure requiring iv abx and supplemental o2 with close monitoring for decompensation that cannot take place in lower level of care Time Spent With Patient Time: Total time managing care of this patient today ____ minutes. Quality Stroke Does the patient have a stroke diagnosis?: No VTE Prior VTE?: No VTE Risk Level:: Medical - moderate - high VTE Device Contraindication: Treatment Not Indicated VTE Drug Contraindication: N/A - Med Ordered
[2022-11-13 14:58] LABS: Procalcitonin 0.11 ng/mL
[2022-11-13 15:51] LABS: MRSA Nasal PCR NEGATIVE (Negative); SA Nasal PCR NEGATIVE (Negative)
[2022-11-13] MEDS: 0.9 % Sodium Chloride 1,000 ML 999 ML IVCONT (17:08)
--- NOTE | 2022-11-13 18:05 | PC.NURSE ---
pt in no acute distress, remains on a nasal cannula for support, occasional cough.
--- NOTE | 2022-11-13 18:10 | PC.NURSE ---
report given for admissions
[2022-11-13] MEDS: Montelukast Sodium 10 MG TABLET PO (20:30)
[2022-11-13] MEDS: traZODone HCL 100 MG TABLET PO (20:30)
[2022-11-13] MEDS: 0.9 % Sodium Chloride Flush 3 ML SYRINGE IVFLUSH (20:32)
[2022-11-14] VITALS (11 sets, daily range): BP systolic 146–178; BP diastolic 64–78; PULSE 76–101; RESP 17–22; TEMP 36.1–37; O2SAT 92–97
[2022-11-14] MEDS: vancomycin HCL 750 MG in 0.9 % Sodium Chloride 250 ML 265 MG IV (03:00)
[2022-11-14] MEDS: cefEPime HCl 2 GM in 0.9 % Sodium Chloride 50 ML IV ×3 (06:18→21:58)
[2022-11-14 06:19] LABS: MANUAL DIFF FLAG NO
[2022-11-14 06:36] LABS: Appearance Urine Clear; Color Urine Yellow; Glucose Urine UA Negative (Negative); Leukocyte Esterase Urine Negative (Negative); Nitrite Urine Negative (Negative); Specific Gravity - Urine 1.025 (1.005-1.025); UMIC TRIGGER UACC YES; Urine Blood Negative (Negative); Urine Ketones 80 mg/dL (Negative); Urine Protein 30 (1+) mg/dL (Neg-Trace)
[2022-11-14 06:37] LABS: Anion Gap 16 (12-20); Blood Urea Nitrogen 16 mg/dL (9-16); Calcium 8.7 mg/dL (8.4-10.2); Carbon Dioxide 17 mmol/L (22-29); Chloride 109 mmol/L (96-108); Creatinine Clr Calc Pharmacy 87.9; Estimated Glomerular Filt Rate > 60; Glucose Random 138 mg/dL (60-115); Potassium 4.6 mmol/L (3.3-5.1); Sodium 137 mmol/L (135-145)
[2022-11-14 06:38] LABS: Hemoglobin 9.7 g/dl (14.0-18.0); Imm Gran Abs Auto 0.02 X10*3/uL (0.00-0.03); Imm Gran Pct Auto 0.3 % (0.0-0.4); Lymphocytes Absolute Auto 0.9 X10*3/uL (1.2-4.9); Lymphocytes Percent Auto 15.3 % (20-40); Mean Corpuscular HGB Conc 33.4 g/dl (31.0-36.0); Mean Corpuscular Hemoglobin 30.3 pg (27.0-33.0); Mean Corpuscular Volume 90.6 fL (80.0-98.0); Mean Platelet Volume 8.8 fL (9.4-12.4); Monocytes Absolute Auto 0.2 X10*3/uL (0.1-1.2); Monocytes Percent Auto 3.6 % (2-11); Neutrophils Percent Auto 80.8 % (45-73); Platelet Count 363 X10*3/uL (160-400); Red Cell Distribution Width 13.9 % (11.0-16.0)
[2022-11-14 06:41] LABS: Bacteria Urine None Seen (None Seen); RBC Urine 0-2 /HPF (0-2); Squamous Epithelial Cell Urine 0-2 /HPF (0-2); WBC Urine 0-5 /HPF (0-5)
[2022-11-14 06:51] LABS: White Blood Count 6.1 X10*3/uL (4.8-10.8)
[2022-11-14] MEDS: Albuterol/Iprat 2.5/0.5MG 3 ML AMPUL.NEB INHALE ×4 (08:25→19:56)
[2022-11-14] MEDS: Fluticasone/Vilanterol 200/25 BLST.W.DEV 1 PUFF INHALE (08:40)
[2022-11-14] MEDS: Multivitamin TABLET 1 TAB PO (09:17)
[2022-11-14] MEDS: Tamsulosin HCL 0.4 MG CAPSULE PO (09:17)
[2022-11-14] MEDS: Aspirin Enteric Coated 81 MG TABLET.DR PO (09:17)
[2022-11-14] MEDS: Metoprolol Succinate ER 50 MG TAB.ER.24H PO (09:17)
[2022-11-14] MEDS: Losartan Potassium 50 MG TABLET 100 MG PO (09:17)
[2022-11-14] MEDS: 0.9 % Sodium Chloride Flush 3 ML SYRINGE IVFLUSH ×3 (09:17→20:13)
[2022-11-14] MEDS: Loratadine 10 MG TABLET PO (09:18)
[2022-11-14] MEDS: Pravastatin Sodium 40 MG TABLET PO (09:18)
--- NOTE | 2022-11-14 09:20 | HO.PM.IMPN ---
Subjective Subjective Date of Service: 11/14/22 Interval History: Seen in follow up for HCAP, sepsis Interval history: Still with intermittent SOB, significant CARO with oximetry in 80s with ambulation to bathroom. Continues with productive cough Review of Systems Review of Systems: Yes all other systems are reviewed and are negative Physical Exam Vital Signs: Vital Signs: Last Vital Signs Temp 97.2 F 11/14/22 08:00 Pulse 90 11/14/22 08:40 Resp 20 11/14/22 08:40 BP 178/78 H 11/14/22 08:00 Pulse Ox 97 11/14/22 08:00 O2 Del Method Nasal Cannula 11/14/22 08:00 O2 Flow Rate 2.5 11/14/22 08:00 Oxygen Flow Rate 3 11/13/22 11:07 BMI result Body Mass Index 24.0 Constitutional - Awake and Alert, No apparent distress Eyes - PERRLA, EOMI Cardiovascular - S1S2, RRR, No edema Respiratory - Normal lung expansion, Normal respiratory effort, mild respiratory distress with pursed lips breathing when speaking, diminished lungs bilaterally with scattered expiratory wheezing Gastrointestinal - NT / ND; +BS; No rebound or guarding Extremities - no calf tenderness bilaterally, no swelling Skin - Warm/Dry Neurological - Alert & oriented x3 Psychological - Appropriate affect Objective Data Active Medications Acetaminophen (Acetaminophen 325 Mg Tablet) 650 mg PO Q6H PRN PRN Reason: Pain, Mild (Pain Scale 1-3) Albuterol Sulfate (Albuterol Sulfate 90 Mcg 8 Gm Inhaler) 2 puff INHALE Q4H PRN PRN Reason: wheezing Albuterol/Ipratropium (Albuterol/Iprat 2.5/0.5mg 3 Ml Ampul.Neb) 3 ml INHALE RQ4H WHILE AWAKE [facility] Last Admin: 11/14/22 08:25 Dose: 3 ml Documented By: MIIHR Aspirin (Aspirin Enteric Coated 81 Mg Tablet.) 81 mg PO DAILY [facility] Docusate Sodium (Docusate Sodium 100 Mg Capsule) 100 mg PO DAILY PRN PRN Reason: Constipation Docusate Sodium (Docusate Sodium 100 Mg Capsule) 100 mg PO BID PRN PRN Reason: Constipation Enoxaparin Sodium (Enoxaparin Sodium 40 Mg/0.4 Ml Syringe) 40 mg SUBCUT Q24H [facility] Last Admin: 11/13/22 20:33 Dose: Not Given Documented By: JAE Non-Admin Reason: given in er per pt Fluticasone Propionate (Fluticasone Propionate Nasal 16 Gm [place]) 1 spray NOSTRIL-B BID PRN PRN Reason: Allergy Symptoms Fluticasone/Vilanterol (Fluticasone/Vilanterol 200/25 Blst.W.Dev) 1 puff INHALE RDAILY [facility] Last Admin: 11/14/22 08:40 Dose: 1 puff Documented By: MIHIR Guaifenesin (Guaifenesin [place] 600 Mg Tab.Er.12h) 600 mg PO BID PRN PRN Reason: Cold Symptoms Cefepime HCl 2 gm/ Sodium (Chloride) 50 mls @ 100 mls/hr IV Q8H [facility] Last Admin: 11/14/22 06:18 Dose: 100 mls/hr Documented By: JAE Vancomycin HCl 750 mg/ Sodium (Chloride) 265 mls @ 265 mls/hr IV Q12H [facility] Last Infusion: 11/14/22 04:10 Dose: 0 mls/hr Documented By: JAE Loratadine (Loratadine 10 Mg Tablet) 10 mg PO DAILY [facility] Losartan Potassium (Losartan Potassium 50 Mg Tablet) 100 mg PO DAILY [facility]; Protocol Metoprolol Succinate (Metoprolol Succinate Er 50 Mg Tab.Er.24h) 50 mg PO DAILY [facility]; Protocol Montelukast Sodium (Montelukast Sodium 10 Mg Tablet) 10 mg PO BEDTIME [facility] Last Admin: 11/13/22 20:30 Dose: 10 mg Documented By: JAE Multivitamins/Vitamin C (Multivitamin Tablet) 1 tab PO DAILY [facility] Ondansetron HCl (Ondansetron Hcl 4 Mg/2 Ml Vial) 4 mg IVPUSH Q8H PRN PRN Reason: Nausea and Vomiting Pharmacy Consult (Consult Rx Perform Med Rec) 1 each MISCELLANE ONCE PRN PRN Reason: Consult order Pharmacy Consult (Consult Rx Vancomycin Dosing) 1 each MISCELLANE DAILY PRN PRN Reason: Consult order Pravastatin Sodium (Pravastatin Sodium 40 Mg Tablet) 40 mg PO DAILY [facility] Sodium Chloride (0.9 % Sodium Chloride Flush 3 Ml Syringe) 3 ml IVFLUSH QSHIFT [facility] Last Admin: 11/13/22 20:32 Dose: 3 ml Documented By: JAE Tamsulosin HCl (Tamsulosin Hcl 0.4 Mg Capsule) 0.4 mg PO DAILY [facility] Tiotropium [place] (Tiotropium [place] 2.5 Mcg Inhaler) 2 puff INHALE RDAILY [facility] Last Admin: 11/14/22 08:39 Dose: 2 puff Documented By: MIHIR Trazodone HCl (Trazodone Hcl 100 Mg Tablet) 100 mg PO BEDTIME [facility] Last Admin: 11/13/22 20:30 Dose: 100 mg Documented By: JAE Labs 11/14/22 05:25 11/14/22 05:25 Labs: Laboratory Results - last 24 hr 11/13/22 11/13/22 11/13/22 11:19 12:14 12:14 MCV 91.6 MCH 30.5 MCHC 33.3 RDW 13.9 Plt Count 394 MPV 8.6 L Immature Gran % (Auto) 0.6 H Neut % (Auto) 75.3 H Lymph % (Auto) 13.3 L [place] % (Auto) 9.6 Eos % (Auto) 0.9 Baso % (Auto) 0.3 Lymph # (Auto) 1.9 [place] # (Auto) 1.4 H Eos # (Auto) 0.1 Baso # (Auto) 0.0 Abs Immat Gran (auto) 0.08 H Absolute Neuts (auto) 10.6 H Absolute Nucleated RBC 0.000 Nucleated RBC % (auto) 0.0 Anion Gap 22 H Estim Creat Clear Calc 73.6 Estimated GFR > 60 Random Glucose 90 Lactic Acid Calcium 10.0 D Magnesium 2.3 Total Bilirubin 0.5 AST 12 ALT 10 Alkaline Phosphatase 86 B-Natriuretic Peptide Total Protein 8.4 H Albumin 4.0 Procalcitonin 0.11 Urine Color Urine Appearance Urine pH Ur Specific [place] Urine Protein Urine Glucose (UA) Urine Ketones Urine Blood Urine Nitrite Ur Leukocyte Esterase Urine RBC Urine WBC Ur Squamous Epith Cells Urine Bacteria Hyaline Casts Nasal Screen MRSA (PCR) Nasal S. aureus Screen Nasal MRSA/S.aureus Interp COVID-19 (KISHA) Negative COVID-19 Clin Com See Note Influenza Type A (MIKEY) Influenza Type B (MIKEY) Influenza A & B Note 11/13/22 11/13/22 11/13/22 12:14 12:14 12:14 MCV MCH MCHC RDW Plt Count MPV Immature Gran % (Auto) Neut % (Auto) Lymph % (Auto) [place] % (Auto) Eos % (Auto) Baso % (Auto) Lymph # (Auto) [place] # (Auto) Eos # (Auto) Baso # (Auto) Abs Immat Gran (auto) Absolute Neuts (auto) Absolute Nucleated RBC Nucleated RBC % (auto) Anion Gap Estim Creat Clear Calc Estimated GFR Random Glucose Lactic Acid 1.1 Calcium Magnesium Total Bilirubin AST ALT Alkaline Phosphatase B-Natriuretic Peptide 23 Total Protein Albumin Procalcitonin Urine Color Urine Appearance Urine pH Ur Specific [place] Urine Protein Urine Glucose (UA) Urine Ketones Urine Blood Urine Nitrite Ur Leukocyte Esterase Urine RBC Urine WBC Ur Squamous Epith Cells Urine Bacteria Hyaline Casts Nasal Screen MRSA (PCR) Nasal S. aureus Screen Nasal MRSA/S.aureus Interp COVID-19 (KISHA) COVID-19 Clin Com Influenza Type A (MIKEY) Negative Influenza Type B (MIKEY) Negative Influenza A & B Note See Note 11/13/22 11/14/22 11/14/22 13:52 05:25 05:25 MCV 90.6 MCH 30.3 MCHC 33.4 RDW 13.9 Plt Count 363 MPV 8.8 L Immature Gran % (Auto) 0.3 Neut % (Auto) 80.8 H Lymph % (Auto) 15.3 L [place] % (Auto) 3.6 Eos % (Auto) 0.0 Baso % (Auto) 0.0 Lymph # (Auto) 0.9 L [place] # (Auto) 0.2 Eos # (Auto) 0.0 Baso # (Auto) 0.0 Abs Immat Gran (auto) 0.02 Absolute Neuts (auto) 5.0 Absolute Nucleated RBC 0.000 Nucleated RBC % (auto) 0.0 Anion Gap 16 Estim Creat Clear Calc 87.9 Estimated GFR > 60 Random Glucose 138 H Lactic Acid Calcium 8.7 D Magnesium Total Bilirubin AST ALT Alkaline Phosphatase B-Natriuretic Peptide Total Protein Albumin Procalcitonin Urine Color Urine Appearance Urine pH Ur Specific [place] Urine Protein Urine Glucose (UA) Urine Ketones Urine Blood Urine Nitrite Ur Leukocyte Esterase Urine RBC Urine WBC Ur Squamous Epith Cells Urine Bacteria Hyaline Casts Nasal Screen MRSA (PCR) NEGATIVE Nasal S. aureus Screen NEGATIVE Nasal MRSA/S.aureus Interp SEE NOTE COVID-19 (KISHA) COVID-19 Clin Com Influenza Type A (MIKEY) Influenza Type B (MIKEY) Influenza A & B Note 11/14/22 06:20 MCV MCH MCHC RDW Plt Count MPV Immature Gran % (Auto) Neut % (Auto) Lymph % (Auto) [place] % (Auto) Eos % (Auto) Baso % (Auto) Lymph # (Auto) [place] # (Auto) Eos # (Auto) Baso # (Auto) Abs Immat Gran (auto) Absolute Neuts (auto) Absolute Nucleated RBC Nucleated RBC % (auto) Anion Gap Estim Creat Clear Calc Estimated GFR Random Glucose Lactic Acid Calcium Magnesium Total Bilirubin AST ALT Alkaline Phosphatase B-Natriuretic Peptide Total Protein Albumin Procalcitonin Urine Color Yellow Urine Appearance Clear Urine pH 6.0 Ur Specific [place] 1.025 Urine Protein 30 (1+) H Urine Glucose (UA) Negative Urine Ketones 80 Urine Blood Negative Urine Nitrite Negative Ur Leukocyte Esterase Negative Urine RBC 0-2 Urine WBC 0-5 Ur Squamous Epith Cells 0-2 Urine Bacteria None Seen Hyaline Casts 3-5 Nasal Screen MRSA (PCR) Nasal S. aureus Screen Nasal MRSA/S.aureus Interp COVID-19 (KISHA) COVID-19 Clin Com Influenza Type A (MIKEY) Influenza Type B (MIKEY) Influenza A & B Note Assessment and Plan (1) Sepsis: Status: Acute (2) HCAP (healthcare-associated pneumonia): Status: Acute (3) COPD exacerbation: Status: Acute Plan 62-year-old male with history of? hypertension asthma / COPD overlap, hyperlipidemia was a current everyday smoker with recent admission to [facility] 6 weeks ago for community-acquired pneumonia admitted for HCAP and acute hypoxemic respiratory failure. #Acute HCAP with sepsis -Sepsis resolved -IV cefepime and vancomycin -Duonebs q4h while awake, albuterol prn -symptomatic management -nasal MRSA screen negative - strep pneumo ag, legionella ag, sputum culture pending -Follow CBC, BC -procalcitonin 0.11 #Acute hypoxemic respiratory failure -2/2 above -abx as above, duonebs/albuterol as above -continue supplemental o2 to maintain oximetry 90-92% -May need home O2 eval -PT recommending inpt pulmonary rehab #Asthma/COPD overlap- with acute exacerbation -add solumedrol 40mg BID -duonebs q4h while awake, albuterol prn #Peripheral neuropathy- chronic, intermittent -Vitamin b12, folic acid, tsh levels pending -consider adding gabapentin #Chronic normocytic anemia -likely r/t chronic disease -delta change in blood counts likely due to hemoconcentration yesterday, improved with IVF -No bleeding, follow cbc #HTN -continue home meds #HLD -continue statin dvt prophylaxis- lovenox full code pt requires ongoing inpt stay for management of HCAP with sepsis and acute respiratory failure requiring broad spectrum iv abx and supplemental o2 with close monitoring for decompensation that cannot take place in lower level of care. Evaluated by PT and will likely discharge to inpt pulmonary rehab Time Spent With Patient Time: Total time managing care of this patient today ____ minutes. Quality Stroke Does the patient have a stroke diagnosis?: No VTE Prior VTE?: No VTE Risk Level:: Medical - moderate - high VTE Device Contraindication: Treatment Not Indicated VTE Drug Contraindication: N/A - Med Ordered
[2022-11-14] MEDS: methylPREDNISolone Sod Succ 40 MG/ML VIAL IVPUSH ×2 (09:56→20:13)
[2022-11-14 13:12] LABS: TSH reflex Free T4 0.65 uIU/mL (0.32-4.0)
[2022-11-14 13:25] LABS: Folate 14.1 ng/mL (> or = 4.0); Vitamin B12 1631 pg/mL (200-900)
[2022-11-14 13:39] LABS: Vancomycin Random 12.4 mcg/mL (15-20)
--- NOTE | 2022-11-14 13:42 | MHC.CM.PN ---
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
[2022-11-14] MEDS: Enoxaparin Sodium 40 MG/0.4 ML SYRINGE SUBCUT (15:18)
[2022-11-14] MEDS: vancomycin HCL 1,000 MG in 0.9 % Sodium Chloride 250 ML 270 MG IV (16:08)
[2022-11-14] MEDS: Montelukast Sodium 10 MG TABLET PO (20:13)
[2022-11-14] MEDS: traZODone HCL 100 MG TABLET PO (20:13)
[2022-11-15] VITALS (8 sets, daily range): BP systolic 145–168; BP diastolic 70–80; PULSE 77–94; RESP 17–18; TEMP 35.9–36.6; O2SAT 92–97
[2022-11-15] MEDS: vancomycin HCL 1,000 MG in 0.9 % Sodium Chloride 250 ML 270 MG IV ×2 (03:45→18:18)
[2022-11-15] MEDS: Magnesium Hydrox/Alum Hydrox 30 ML ORAL.SUSP 15 ML PO ×2 (04:16→22:28)
[2022-11-15] MEDS: guaiFENesin LA 600 MG TAB.ER.12H PO (04:20)
[2022-11-15] MEDS: cefEPime HCl 2 GM in 0.9 % Sodium Chloride 50 ML IV ×3 (05:43→21:10)
[2022-11-15 06:25] LABS: Creatinine Clr Calc Pharmacy 91.7; Estimated Glomerular Filt Rate > 60
[2022-11-15] MEDS: Albuterol/Iprat 2.5/0.5MG 3 ML AMPUL.NEB INHALE ×4 (08:03→20:15)
[2022-11-15] MEDS: Fluticasone/Vilanterol 200/25 BLST.W.DEV 1 PUFF INHALE (08:03)
[2022-11-15] MEDS: Metoprolol Succinate ER 50 MG TAB.ER.24H PO (08:39)
[2022-11-15] MEDS: Losartan Potassium 50 MG TABLET 100 MG PO (08:39)
[2022-11-15] MEDS: Tamsulosin HCL 0.4 MG CAPSULE PO (08:39)
[2022-11-15] MEDS: Pravastatin Sodium 40 MG TABLET PO (08:39)
[2022-11-15] MEDS: Gabapentin 300 MG CAPSULE PO (08:39)
[2022-11-15] MEDS: methylPREDNISolone Sod Succ 40 MG/ML VIAL IVPUSH ×3 (08:39→22:28)
[2022-11-15] MEDS: Multivitamin TABLET 1 TAB PO (08:39)
[2022-11-15] MEDS: 0.9 % Sodium Chloride Flush 3 ML SYRINGE IVFLUSH ×2 (08:40→18:17)
[2022-11-15] MEDS: Loratadine 10 MG TABLET PO (08:40)
[2022-11-15] MEDS: Aspirin Enteric Coated 81 MG TABLET.DR PO (08:40)
[2022-11-15] MEDS: Acetaminophen 325 MG TABLET 650 MG PO ×2 (09:50→17:59)
--- NOTE | 2022-11-15 11:07 | P.PNIM_ITS ---
Subjective Subjective Date of Service: 11/15/22 Interval History: Seen in follow up for HCAP, sepsis Interval history: Still with intermittent SOB, significant CARO, O2 has been weaned to 1.5L. Reported significnat heart burn last night and this morning after eating potato chips. No n/v, epigastric pain, melena, hematochezia. Review of Systems Review of Systems: Yes all other systems are reviewed and are negative Physical Exam Vital Signs: Vital Signs: Last Vital Signs Temp 98 F 11/15/22 06:50 Pulse 92 11/15/22 08:03 Resp 18 11/15/22 08:03 BP 160/77 H 11/15/22 06:50 Pulse Ox 93 11/15/22 06:50 O2 Del Method Nasal Cannula 11/15/22 06:50 O2 Flow Rate 1 11/15/22 06:50 Oxygen Flow Rate 3 11/13/22 11:07 BMI result Body Mass Index 24.0 Constitutional - Awake and Alert, No apparent distress Eyes - PERRLA, EOMI Cardiovascular - S1S2, RRR, No edema Respiratory - Normal lung expansion, Normal respiratory effort, mild respiratory distress with pursed lips breathing when speaking, diminished lungs bilaterally with coarse lung sounds and diffuse expiratory wheezing Gastrointestinal - NT / ND; +BS; No rebound or guarding Extremities - no calf tenderness bilaterally, no swelling Skin - Warm/Dry Neurological - Alert & oriented x3 Psychological - Appropriate affect Objective Data Active Medications Acetaminophen (Acetaminophen 325 Mg Tablet) 650 mg PO Q6H PRN PRN Reason: Pain, Mild (Pain Scale 1-3) Last Admin: 11/15/22 09:50 Dose: 650 mg Documented By: RC Albuterol Sulfate (Albuterol Sulfate 90 Mcg 8 Gm Inhaler) 2 puff INHALE Q4H PRN PRN Reason: wheezing Albuterol/Ipratropium (Albuterol/Iprat 2.5/0.5mg 3 Ml Ampul.Neb) 3 ml INHALE RQ4H WHILE AWAKE [facility] Last Admin: 11/15/22 08:03 Dose: 3 ml Documented By: MIHIR Aspirin (Aspirin Enteric Coated 81 Mg Tablet.) 81 mg PO DAILY [facility] Last Admin: 11/15/22 08:40 Dose: 81 mg Documented By: RC Calcium Carbonate (Calcium Carbonate 750 Mg Tab.Chew) 750 mg PO Q6H PRN PRN Reason: Heartburn Docusate Sodium (Docusate Sodium 100 Mg Capsule) 100 mg PO DAILY PRN PRN Reason: Constipation Docusate Sodium (Docusate Sodium 100 Mg Capsule) 100 mg PO BID PRN PRN Reason: Constipation Enoxaparin Sodium (Enoxaparin Sodium 40 Mg/0.4 Ml Syringe) 40 mg SUBCUT Q24H [facility] Last Admin: 11/14/22 15:18 Dose: 40 mg Documented By: RC Fluticasone Propionate (Fluticasone Propionate Nasal 16 Gm [place]) 1 spray NOSTRIL-B BID PRN PRN Reason: Allergy Symptoms Fluticasone/Vilanterol (Fluticasone/Vilanterol 200/25 Blst.W.Dev) 1 puff INHALE RDAILY [facility] Last Admin: 11/15/22 08:03 Dose: 1 puff Documented By: MIHIR Guaifenesin (Guaifenesin La 600 Mg Tab.Er.12h) 600 mg PO BID PRN PRN Reason: Cold Symptoms Last Admin: 11/15/22 04:20 Dose: 600 mg Documented By: JAE Cefepime HCl 2 gm/ Sodium (Chloride) 50 mls @ 100 mls/hr IV Q8H [facility] Last Infusion: 11/15/22 06:19 Dose: 0 mls/hr Documented By: JAE Vancomycin HCl 1,000 mg/ (Sodium Chloride) 270 mls @ 270 mls/hr IV Q12H [facility] Last Infusion: 11/15/22 04:46 Dose: 0 mls/hr Documented By: JAE Loratadine (Loratadine 10 Mg Tablet) 10 mg PO DAILY [facility] Last Admin: 11/15/22 08:40 Dose: 10 mg Documented By: RC Losartan Potassium (Losartan Potassium 50 Mg Tablet) 100 mg PO DAILY [facility]; Protocol Last Admin: 11/15/22 08:39 Dose: 100 mg Documented By: RC Methylprednisolone Sodium Succinate (Methylprednisolone Sod Succ 40 Mg/Ml Vial) 40 mg IVPUSH Q8H [facility] Metoprolol Succinate (Metoprolol Succinate Er 50 Mg Tab.Er.24h) 50 mg PO DAILY [facility]; Protocol Last Admin: 11/15/22 08:39 Dose: 50 mg Documented By: RC Montelukast Sodium (Montelukast Sodium 10 Mg Tablet) 10 mg PO BEDTIME [facility] Last Admin: 11/14/22 20:13 Dose: 10 mg Documented By: JAE Multivitamins/Vitamin C (Multivitamin Tablet) 1 tab PO DAILY [facility] Last Admin: 11/15/22 08:39 Dose: 1 tab Documented By: RC Omeprazole (Omeprazole 20 Mg Capsule.Dr) 20 mg PO DAILY@0630 [facility] Ondansetron HCl (Ondansetron Hcl 4 Mg/2 Ml Vial) 4 mg IVPUSH Q8H PRN PRN Reason: Nausea and Vomiting Pharmacy Consult (Consult Rx Perform Med Rec) 1 each MISCELLANE ONCE PRN PRN Reason: Consult order Pharmacy Consult (Consult Rx Vancomycin Dosing) 1 each MISCELLANE DAILY PRN PRN Reason: Consult order Pravastatin Sodium (Pravastatin Sodium 40 Mg Tablet) 40 mg PO DAILY [facility] Last Admin: 11/15/22 08:39 Dose: 40 mg Documented By: RC Sodium Chloride (0.9 % Sodium Chloride Flush 3 Ml Syringe) 3 ml IVFLUSH QSHIFT [facility] Last Admin: 11/15/22 08:40 Dose: 3 ml Documented By: RC Tamsulosin HCl (Tamsulosin Hcl 0.4 Mg Capsule) 0.4 mg PO DAILY [facility] Last Admin: 11/15/22 08:39 Dose: 0.4 mg Documented By: RC Tiotropium [place] (Tiotropium [place] 2.5 Mcg Inhaler) 2 puff INHALE RDAILY [facility] Last Admin: 11/15/22 08:03 Dose: 2 puff Documented By: MIHIR Trazodone HCl (Trazodone Hcl 100 Mg Tablet) 100 mg PO BEDTIME [facility] Last Admin: 11/14/22 20:13 Dose: 100 mg Documented By: JAE Labs 11/14/22 05:25 11/15/22 05:23 Labs: Laboratory Results - last 24 hr 11/14/22 11/14/22 11/14/22 12:10 12:10 12:46 Estim Creat Clear Calc Estimated GFR Vitamin B12 1631 H Folate 14.1 TSH 0.65 Random Vancomycin 12.4 L 08/02/23 05:23 Estim Creat Clear Calc 91.7 Estimated GFR > 60 Vitamin B12 Folate TSH Random Vancomycin Microbiology Microbiology Results: Microbiology 11/13/22 13:52 Blood Culture - Preliminary Blood - Venous No growth after 24 hours. 11/13/22 12:14 Blood Culture - Preliminary Blood - Venous No growth after 24 hours. Assessment and Plan (1) Sepsis: Status: Acute (2) HCAP (healthcare-associated pneumonia): Status: Acute (3) COPD exacerbation: Status: Acute Plan 62-year-old male with history of? hypertension asthma / COPD overlap, hyperlipidemia was a current everyday smoker with recent admission to [facility] weeks ago for community-acquired pneumonia admitted for HCAP and acute hypoxemic respiratory failure. #Acute HCAP with sepsis -Sepsis resolved -symptomatic management -nasal MRSA screen negative, dc vanco -Continue cefepime -strep pneumo ag, legionella ag, sputum culture pending -Follow CBC, BC -procalcitonin 0.11 #Acute hypoxemic respiratory failure -2/2 above -abx as above, duonebs/albuterol as above -continue supplemental o2 to maintain oximetry 90-92% -May need home O2 eval -PT recommending inpt pulmonary rehab #Asthma/COPD overlap- with acute exacerbation -increase Solu-Medrol to 40 mg t.i.d. given increased coarse lung sounds and ongoing wheezing -duonebs q4h while awake, albuterol prn #Peripheral neuropathy- chronic, intermittent -Vitamin b12, folic acid, tsh levels pending -consider adding gabapentin #Chronic normocytic anemia -likely r/t chronic disease -delta change in blood counts likely due to hemoconcentration yesterday, improved with IVF -No bleeding, follow cbc #HTN -continue home meds #HLD -continue statin dvt prophylaxis- heparin full code pt requires ongoing inpt stay for management of HCAP with sepsis and acute respiratory failure with worsening coarse lung sounds requiring broad spectrum iv abx, increased IV steroid dose, and supplemental o2 with close monitoring for decompensation that cannot take place in lower level of care. Evaluated by PT and will likely discharge to inpt pulmonary rehab Time Spent With Patient Time: Total time managing care of this patient today ____ minutes. Quality Stroke Does the patient have a stroke diagnosis?: No VTE Prior VTE?: No VTE Risk Level:: Medical - moderate - high VTE Device Contraindication: Treatment Not Indicated VTE Drug Contraindication: N/A - Med Ordered
[2022-11-15] MEDS: Calcium Carbonate 750 MG TAB.CHEW PO ×2 (11:38→21:10)
[2022-11-15 12:04] LABS: Basophils Percent Auto 0.1 % (0-2); Hematocrit 32.7 % (42.0-52.0); Hemoglobin 10.8 g/dl (14.0-18.0); Imm Gran Abs Auto 0.11 X10*3/uL (0.00-0.03); Imm Gran Pct Auto 0.6 % (0.0-0.4); Lymphocytes Absolute Auto 1.1 X10*3/uL (1.2-4.9); Lymphocytes Percent Auto 6.2 % (20-40); MANUAL DIFF FLAG SCAN; Mean Corpuscular Hemoglobin 30.3 pg (27.0-33.0); Mean Corpuscular Volume 91.9 fL (80.0-98.0); Monocytes Absolute Auto 0.3 X10*3/uL (0.1-1.2); Monocytes Percent Auto 1.9 % (2-11); Neutrophils Absolute Auto 15.5 x10*3/uL (2.0-8.3); Neutrophils Percent Auto 91.2 % (45-73); Platelet Count 444 X10*3/uL (160-400); Red Blood Count 3.56 X10*6/uL (4.60-5.80); Red Cell Distribution Width 13.9 % (11.0-16.0); SCAN SMEAR FLAG 1
[2022-11-15 12:24] LABS: SLIDE REVIEW VERIFIED
--- NOTE | 2022-11-15 12:34 | HE.PHANOTE ---
Re: vanco dosing Trough was 20.0 today but drawn 2 hours and 20 minutes early. Renal function is still good. Will maintain current regimen and recheck level tomorrow after 2 more doses given.
[2022-11-15 14:39] LABS: Vancomycin Trough 15.7 mcg/mL (10.0-20.0)
--- NOTE | 2022-11-15 14:45 | MHC.CM.PN ---
pt being considered by [facility] and [place] pending mds which is complered and faxed to [facility] and scanned in system
[2022-11-15] MEDS: Heparin Sodium,Porcine 5,000 UNIT/ML VIAL 5000 UNIT SUBCUT (17:59)
[2022-11-15] MEDS: Montelukast Sodium 10 MG TABLET PO (21:10)
[2022-11-15] MEDS: traZODone HCL 100 MG TABLET PO (21:10)
[2022-11-16] VITALS (9 sets, daily range): BP systolic 147–170; BP diastolic 70–79; PULSE 68–111; RESP 16–20; TEMP 36.2–36.4; O2SAT 94–96
[2022-11-16] MEDS: cefEPime HCl 2 GM in 0.9 % Sodium Chloride 50 ML IV ×3 (05:43→21:25)
[2022-11-16] MEDS: Omeprazole 20 MG CAPSULE.DR PO (05:43)
[2022-11-16 05:44] LABS: MANUAL DIFF FLAG NO
[2022-11-16] MEDS: Heparin Sodium,Porcine 5,000 UNIT/ML VIAL 5000 UNIT SUBCUT ×2 (05:45→16:26)
[2022-11-16 06:04] LABS: Basophils Percent Auto 0.1 % (0-2); Hematocrit 27.9 % (42.0-52.0); Hemoglobin 9.3 g/dl (14.0-18.0); Imm Gran Abs Auto 0.09 X10*3/uL (0.00-0.03); Imm Gran Pct Auto 0.7 % (0.0-0.4); Lymphocytes Absolute Auto 1.1 X10*3/uL (1.2-4.9); Lymphocytes Percent Auto 8.7 % (20-40); Mean Corpuscular HGB Conc 33.3 g/dl (31.0-36.0); Mean Corpuscular Hemoglobin 30.6 pg (27.0-33.0); Mean Corpuscular Volume 91.8 fL (80.0-98.0); Mean Platelet Volume 8.9 fL (9.4-12.4); Monocytes Absolute Auto 0.3 X10*3/uL (0.1-1.2); Monocytes Percent Auto 2.1 % (2-11); Neutrophils Absolute Auto 10.7 x10*3/uL (2.0-8.3); Neutrophils Percent Auto 88.4 % (45-73); Platelet Count 379 X10*3/uL (160-400); Red Blood Count 3.04 X10*6/uL (4.60-5.80); Red Cell Distribution Width 13.9 % (11.0-16.0); White Blood Count 12.1 X10*3/uL (4.8-10.8)
[2022-11-16 06:13] LABS: Anion Gap 14 (12-20); Blood Urea Nitrogen 19 mg/dL (9-16); Calcium 8.9 mg/dL (8.4-10.2); Carbon Dioxide 22 mmol/L (22-29); Chloride 105 mmol/L (96-108); Creatinine Clr Calc Pharmacy 93.1; Estimated Glomerular Filt Rate > 60; Glucose Random 145 mg/dL (60-115); Potassium 4.3 mmol/L (3.3-5.1); Sodium 137 mmol/L (135-145)
[2022-11-16] MEDS: vancomycin HCL 1,000 MG in 0.9 % Sodium Chloride 250 ML 270 MG IV (06:20)
[2022-11-16] MEDS: 0.9 % Sodium Chloride Flush 3 ML SYRINGE IVFLUSH ×2 (08:31→16:25)
[2022-11-16] MEDS: Multivitamin TABLET 1 TAB PO (08:32)
[2022-11-16] MEDS: Losartan Potassium 50 MG TABLET 100 MG PO (08:32)
[2022-11-16] MEDS: Pravastatin Sodium 40 MG TABLET PO (08:32)
[2022-11-16] MEDS: Aspirin Enteric Coated 81 MG TABLET.DR PO (08:32)
[2022-11-16] MEDS: Loratadine 10 MG TABLET PO (08:32)
[2022-11-16] MEDS: methylPREDNISolone Sod Succ 40 MG/ML VIAL IVPUSH ×2 (08:32→16:25)
[2022-11-16] MEDS: Tamsulosin HCL 0.4 MG CAPSULE PO (08:32)
[2022-11-16] MEDS: Metoprolol Succinate ER 50 MG TAB.ER.24H PO (08:32)
[2022-11-16] MEDS: Albuterol/Iprat 2.5/0.5MG 3 ML AMPUL.NEB INHALE ×4 (08:53→19:28)
[2022-11-16] MEDS: Fluticasone/Vilanterol 200/25 BLST.W.DEV 1 PUFF INHALE (08:53)
--- NOTE | 2022-11-16 11:51 | HO.PM.IMPN ---
Subjective Subjective Date of Service: 11/16/22 Interval History: seen and examined this morning follow up for COPD, pneumonia feeling sob this am, no significant phlegm production no fever or chills Review of Systems Review of Systems: Yes all other systems are reviewed and are negative Constitutional Constitutional: Denies chills and Denies fever(s) ENT Ears, Nose, Mouth, and Throat: Denies dizziness Cardiovascular Cardiovascular: Denies chest pain, Denies palpitations and Reports dyspnea Respiratory Respiratory: Reports cough and Reports dyspnea Gastrointestinal Gastrointestinal: Denies abdominal pain, Denies nausea and Denies vomiting Neurologic Neurologic: Denies dizziness Endocrine Endocrine: Denies palpitations Physical Exam Vital Signs: Vital Signs: Last Vital Signs Temp 97.6 F 11/16/22 06:52 Pulse 111 H 11/16/22 09:59 Resp 18 11/16/22 08:57 BP 152/73 H 11/16/22 06:52 Pulse Ox 95 11/16/22 06:52 O2 Del Method Nasal Cannula 11/16/22 06:52 O2 Flow Rate 2 11/16/22 06:52 Oxygen Flow Rate 3 11/13/22 11:07 BMI result Body Mass Index 24.0 Const: General: cooperative, comfortable, no acute distress, alert and awake Nutritional Appearance: average body habitus Orientation/consciousness: patient oriented x3 Resp: Other: diminished b/l with b/l wheezing Effort & Inspection: no respiratory distress and no use of accessory muscles Cardio: Rate: regular rate Heart sounds: S1 normal heart sound present and S2 normal heart sound present GI: Inspection: No distended Palpation (GI): Soft to palpation and nontender Neuro: General: patient oriented x3, moves all extremities and CN's II-XI intact bilaterally Extrem: General: Yes no pedal edema Objective Data Active Medications Acetaminophen (Acetaminophen 325 Mg Tablet) 650 mg PO Q6H PRN PRN Reason: Pain, Mild (Pain Scale 1-3) Last Admin: 11/15/22 17:59 Dose: 650 mg Documented By: MIRELLA Albuterol Sulfate (Albuterol Sulfate 90 Mcg 8 Gm Inhaler) 2 puff INHALE Q4H PRN PRN Reason: wheezing Albuterol/Ipratropium (Albuterol/Iprat 2.5/0.5mg 3 Ml Ampul.Neb) 3 ml INHALE RQ4H WHILE AWAKE [facility] Last Admin: 11/16/22 08:53 Dose: 3 ml Documented By: JAYA Aspirin (Aspirin Enteric Coated 81 Mg Tablet.Dr) 81 mg PO DAILY [facility] Last Admin: 11/16/22 08:32 Dose: 81 mg Documented By: SHAYLA Calcium Carbonate (Calcium Carbonate 750 Mg Tab.Chew) 750 mg PO Q6H PRN PRN Reason: Heartburn Last Admin: 11/15/22 21:10 Dose: 750 mg Documented By: SANDRA Docusate Sodium (Docusate Sodium 100 Mg Capsule) 100 mg PO DAILY PRN PRN Reason: Constipation Docusate Sodium (Docusate Sodium 100 Mg Capsule) 100 mg PO BID PRN PRN Reason: Constipation Fluticasone Propionate (Fluticasone Propionate Nasal 16 Gm [place]) 1 spray NOSTRIL-B BID PRN PRN Reason: Allergy Symptoms Fluticasone/Vilanterol (Fluticasone/Vilanterol 200/25 Blst.W.Dev) 1 puff INHALE RDAILY [facility] Last Admin: 11/16/22 08:53 Dose: 1 puff Documented By: JAYA Guaifenesin (Guaifenesin [place] 600 Mg Tab.Er.12h) 600 mg PO BID PRN PRN Reason: Cold Symptoms Last Admin: 11/15/22 04:20 Dose: 600 mg Documented By: JAE Heparin Sodium (Porcine) (Heparin Sodium,Porcine 5,000 Unit/Ml Vial) 5,000 unit SUBCUT Q12H [facility] Last Admin: 11/16/22 05:45 Dose: 5,000 unit Documented By: SANDRA Cefepime HCl 2 gm/ Sodium (Chloride) 50 mls @ 100 mls/hr IV Q8H [facility] Last Infusion: 11/16/22 06:16 Dose: 0 mls/hr Documented By: SANDRA Vancomycin HCl 1,000 mg/ (Sodium Chloride) 270 mls @ 270 mls/hr IV Q12H [facility] Last Infusion: 11/16/22 08:33 Dose: 0 mls/hr Documented By: SHAYLA Loratadine (Loratadine 10 Mg Tablet) 10 mg PO DAILY [facility] Last Admin: 11/16/22 08:32 Dose: 10 mg Documented By: SHAYLA Losartan Potassium (Losartan Potassium 50 Mg Tablet) 100 mg PO DAILY [facility]; Protocol Last Admin: 11/16/22 08:32 Dose: 100 mg Documented By: SHAYLA Methylprednisolone Sodium Succinate (Methylprednisolone Sod Succ 40 Mg/Ml Vial) 40 mg IVPUSH Q8H [facility] Last Admin: 11/16/22 08:32 Dose: 40 mg Documented By: SHAYLA Metoprolol Succinate (Metoprolol Succinate Er 50 Mg Tab.Er.24h) 50 mg PO DAILY [facility]; Protocol Last Admin: 11/16/22 08:32 Dose: 50 mg Documented By: SHAYLA Montelukast Sodium (Montelukast Sodium 10 Mg Tablet) 10 mg PO BEDTIME [facility] Last Admin: 11/15/22 21:10 Dose: 10 mg Documented By: SANDRA Multivitamins/Vitamin C (Multivitamin Tablet) 1 tab PO DAILY [facility] Last Admin: 11/16/22 08:32 Dose: 1 tab Documented By: SHAYLA Omeprazole (Omeprazole 20 Mg Capsule.) 20 mg PO DAILY@0630 [facility] Last Admin: 11/16/22 05:43 Dose: 20 mg Documented By: SANDRA Ondansetron HCl (Ondansetron Hcl 4 Mg/2 Ml Vial) 4 mg IVPUSH Q8H PRN PRN Reason: Nausea and Vomiting Pharmacy Consult (Consult Rx Perform Med Rec) 1 each MISCELLANE ONCE PRN PRN Reason: Consult order Pravastatin Sodium (Pravastatin Sodium 40 Mg Tablet) 40 mg PO DAILY [facility] Last Admin: 11/16/22 08:32 Dose: 40 mg Documented By: SHAYLA Sodium Chloride (0.9 % Sodium Chloride Flush 3 Ml Syringe) 3 ml IVFLUSH QSHIFT [facility] Last Admin: 11/16/22 08:31 Dose: 3 ml Documented By: SHAYLA Tamsulosin HCl (Tamsulosin Hcl 0.4 Mg Capsule) 0.4 mg PO DAILY [facility] Last Admin: 11/16/22 08:32 Dose: 0.4 mg Documented By: SHAYLA Tiotropium [place] (Tiotropium [place] 2.5 Mcg Inhaler) 2 puff INHALE RDAILY [facility] Last Admin: 11/16/22 08:54 Dose: 2 puff Documented By: JAYA Trazodone HCl (Trazodone Hcl 100 Mg Tablet) 100 mg PO BEDTIME [facility] Last Admin: 11/15/22 21:10 Dose: 100 mg Documented By: SANDRA Labs 11/16/22 05:26 11/16/22 05:26 Labs: Laboratory Results - last 24 hr 11/15/22 11/15/22 11/15/22 11:39 11:39 14:08 MCV 91.9 MCH 30.3 MCHC 33.0 RDW 13.9 Plt Count 444 H MPV 9.0 L Immature Gran % (Auto) 0.6 H Neut % (Auto) 91.2 H Lymph % (Auto) 6.2 L [place] % (Auto) 1.9 L Eos % (Auto) 0.0 Baso % (Auto) 0.1 Lymph # (Auto) 1.1 L [place] # (Auto) 0.3 Eos # (Auto) 0.0 Baso # (Auto) 0.0 Abs Immat Gran (auto) 0.11 H Absolute Neuts (auto) 15.5 H Absolute Nucleated RBC 0.000 Nucleated RBC % (auto) 0.0 Smear Tech's Comments VERIFIED Anion Gap Estim Creat Clear Calc Estimated GFR Random Glucose Calcium Vancomycin Trough 20.0 15.7 11/16/22 11/16/22 05:26 05:26 MCV 91.8 MCH 30.6 MCHC 33.3 RDW 13.9 Plt Count 379 MPV 8.9 L Immature Gran % (Auto) 0.7 H Neut % (Auto) 88.4 H Lymph % (Auto) 8.7 L [place] % (Auto) 2.1 Eos % (Auto) 0.0 Baso % (Auto) 0.1 Lymph # (Auto) 1.1 L [place] # (Auto) 0.3 Eos # (Auto) 0.0 Baso # (Auto) 0.0 Abs Immat Gran (auto) 0.09 H Absolute Neuts (auto) 10.7 H Absolute Nucleated RBC 0.000 Nucleated RBC % (auto) 0.0 Smear Tech's Comments Anion Gap 14 Estim Creat Clear Calc 93.1 Estimated GFR > 60 Random Glucose 145 H Calcium 8.9 Vancomycin Trough Microbiology Microbiology Results: Microbiology 11/13/22 13:52 Blood Culture - Preliminary Blood - Venous No growth after 48 hours. 11/13/22 12:14 Blood Culture - Preliminary Blood - Venous No growth after 48 hours. Assessment and Plan (1) COPD exacerbation: Status: Acute (2) HCAP (healthcare-associated pneumonia): Status: Acute Plan 62-year-old male with history of? hypertension asthma / COPD overlap, hyperlipidemia was a current everyday smoker with recent admission to [facility] 6 weeks ago for community-acquired pneumonia admitted for HCAP and acute hypoxemic respiratory failure. #Acute HCAP with sepsis leukocytosis improving, but remains elevated likely due to steroids -nasal MRSA screen negative, dc vanco -Continue cefepime -strep pneumo ag, legionella ag, sputum culture pending -blood cultures negative to date #Acute hypoxemic respiratory failure -2/2 above, down to 1.5L supplental oxygen. goal o2 90-92% -abx as above, duonebs/albuterol as above -PT recommending inpt pulmonary rehab #Asthma/COPD overlap- with acute exacerbation -increase Solu-Medrol to 40 mg t.i.d. given increased coarse lung sounds and ongoing wheezing -duonebs q4h while awake, albuterol prn #Peripheral neuropathy- chronic, intermittent -Vitamin b12 level - elevated; folic acid, tsh levels wnl -outpatient follow up #Chronic normocytic anemia -likely r/t chronic disease -delta change in blood counts likely due to hemoconcentration yesterday, improved with IVF -No bleeding, follow cbc #HTN -continue home meds #HLD -continue statin dvt prophylaxis- heparin full code attending - dr. beavers pt requires ongoing inpt stay for management of HCAP with sepsis and acute respiratory failure with worsening coarse lung sounds requiring broad spectrum iv abx, increased IV steroid dose, and supplemental o2 with close monitoring for decompensation that cannot take place in lower level of care. Evaluated by PT and will likely discharge to inpt pulmonary rehab Time Spent With Patient Time: Total time managing care of this patient today ____ minutes. Quality Stroke Does the patient have a stroke diagnosis?: No VTE Prior VTE?: No VTE Risk Level:: Medical - moderate - high VTE Device Contraindication: Treatment Not Indicated VTE Drug Contraindication: N/A - Med Ordered
[2022-11-16] MEDS: guaiFENesin LA 600 MG TAB.ER.12H PO (14:02)
[2022-11-16] MEDS: traZODone HCL 100 MG TABLET PO (21:24)
[2022-11-16] MEDS: Calcium Carbonate 750 MG TAB.CHEW PO (21:24)
[2022-11-16] MEDS: Montelukast Sodium 10 MG TABLET PO (21:24)
[2022-11-16] MEDS: LORazepam 0.5 MG TABLET PO (21:43)
[2022-11-17] MEDS: methylPREDNISolone Sod Succ 40 MG/ML VIAL IVPUSH ×2 (01:15→08:03)
[2022-11-17 02:42] VITALS: BP 157/68; PULSE 75; RESP 18; TEMP 36.3; O2SAT 94
[2022-11-17] MEDS: Heparin Sodium,Porcine 5,000 UNIT/ML VIAL 5000 UNIT SUBCUT (06:10)
[2022-11-17] MEDS: cefEPime HCl 2 GM in 0.9 % Sodium Chloride 50 ML IV (06:10)
[2022-11-17] MEDS: Omeprazole 20 MG CAPSULE.DR PO (06:11)
[2022-11-17 06:49] VITALS: BP 152/74; PULSE 90; RESP 19; TEMP 36.1; O2SAT 94
[2022-11-17] MEDS: Fluticasone/Vilanterol 200/25 BLST.W.DEV 1 PUFF INHALE (07:16)
[2022-11-17] MEDS: Albuterol/Iprat 2.5/0.5MG 3 ML AMPUL.NEB INHALE ×2 (07:16→11:14)
[2022-11-17 07:19] VITALS: PULSE 96; RESP 16; O2SAT 93
[2022-11-17] MEDS: Loratadine 10 MG TABLET PO (08:02)
[2022-11-17] MEDS: Multivitamin TABLET 1 TAB PO (08:02)
[2022-11-17] MEDS: Tamsulosin HCL 0.4 MG CAPSULE PO (08:02)
[2022-11-17] MEDS: Losartan Potassium 50 MG TABLET 100 MG PO (08:02)
[2022-11-17] MEDS: Aspirin Enteric Coated 81 MG TABLET.DR PO (08:02)
[2022-11-17] MEDS: Metoprolol Succinate ER 50 MG TAB.ER.24H PO (08:02)
[2022-11-17] MEDS: Pravastatin Sodium 40 MG TABLET PO (08:02)
[2022-11-17 11:17] VITALS: PULSE 86; RESP 16; O2SAT 94
--- NOTE | 2022-11-17 11:22 | PM.DS ---
DS: Providers Provider Date of Service: 11/17/22 Date of admission: 11/13/22 14:44 Date of discharge: 11/17/22 Primary care physician: Emily Ramirez MD Attending physician on discharge: Noah Florence Discharging clinician: Jessica Salinas DS: Diagnosis Discharge Diagnosis (1) COPD exacerbation: Status: Acute (2) HCAP (healthcare-associated pneumonia): Status: Acute DS: Summary Hospital Course Hospital Course: From H&P on day of admisison 62-year-old male with history of? hypertension asthma / COPD overlap, hyperlipidemia was a current everyday smoker with recent admission to [facility] 6 weeks ago for community-acquired pneumonia presents to the ED earlier today for evaluation worsening shortness of breath and productive cough ongoing for the last 3-4 days.? He reports shortness of breath with minimal exertion that has been worsening for several days.? He states he does pulse oximeter at home and desats to 87-88% with exertion he does not use oxygen at baseline.? He has had subjective fevers and generalized weakness as well as anorexia.? Denies any known sick contacts.? Denies any shaking chills, sore throat, sinus pressure, abdominal pain, nausea, vomiting, diarrhea, lightheadedness, palpitations, or chest pressure.? He does endorse bilateral pleuritic chest pain however.? On arrival, patient tachycardic to 123, tachypneic to 28, hypertensive to 162/84 and hypoxic to 88% placed on 3 L supplemental O2.? he has leukocytosis of 14.1.? Renal function normal, electrolyte levels normal.? Troponin below detectable limits, BNP normal.? Procalcitonin pending.? Nasal MRSA screen pending.? Negative for COVID-19, influenza.? Chest x-ray shows right upper lobe patchy airspace opacity concerning for pneumonia as well as severe emphysema.? In the ED, given 60 mg IV methylprednisolone, cefepime, vancomycin, and DuoNeb. Acute HCAP with sepsis He initially was treated with cefepime and vancomycin. leukocytosis improving, but remains elevated likely due to steroids. nasal MRSA screen negative, vanco was stopped. strep pneumo ag, legionella ag pending at the time of discharge . blood cultures negative to date. He has been weaned down to 1.5 L of supplemental oxygen. His respiratory symptoms have started to improve. He was seen by Physical therapy who recommended inpatient pulmonary rehab. He will be discharged to complete course of oral antibiotics. Asthma/COPD overlap- with acute exacerbation He was treated with systemic steroids, breathing treatments. Will transition to pulse dose of steroids upon discharge. Final diagnoses Acute pneumonia with sepsis Acute hypoxemic respiratory failure secondary to pneumonia and acute COPD exacerbation Asthma/COPD overlap with acute exacerbation Time Spent with Patient Time attestation: Total time managing care of this patient today ____ minutes. Discharge coordination time: Greater than 30 minutes Quality: Safe Use of Opioids Does Pt have an Active Cancer Diagnosis on the Problem List?: No Quality: Stroke Does the patient have a stroke diagnosis?: No Physical Exam Vital Signs: Vital Signs: Last Vital Signs Temp 97 F 11/17/22 06:49 Pulse 86 11/17/22 11:17 Resp 16 11/17/22 11:17 BP 152/74 H 11/17/22 06:49 Pulse Ox 94 11/17/22 06:49 O2 Del Method Nasal Cannula 11/17/22 06:49 O2 Flow Rate 1.5 11/17/22 06:49 Oxygen Flow Rate 3 11/13/22 11:07 BMI result Body Mass Index 24.0 Const: General: cooperative, comfortable, no acute distress, alert and awake Nutritional Appearance: average body habitus Orientation/consciousness: patient oriented x3 Resp: Other: diminished breath sounds, scattered wheeze. better air entry Effort & Inspection: no respiratory distress and no use of accessory muscles Cardio: Rate: regular rate Heart sounds: S1 normal heart sound present and S2 normal heart sound present GI: Inspection: No distended Palpation (GI): Soft to palpation and nontender Neuro: General: patient oriented x3, moves all extremities and CN's II-XI intact bilaterally Extrem: General: Yes no pedal edema DS: Data Data Completed and Pending Labs on day of discharge: Laboratory Results - last 24 hr 11/16/22 17:10 Random Vancomycin 16.0 Preliminary micro results at discharge 11/13/22 13:52 Blood Culture - Preliminary Blood - Venous No growth after 48 hours. 11/13/22 12:14 Blood Culture - Preliminary Blood - Venous No growth after 48 hours. Discharge Plan Discharge Anticipated Discharge Date/Time: 11/17/22 13:44 Patient Disposition: Xfer SNF Discharge Diagnosis: sepsis secondary to pneumonia acute copd/asthma exacerbation acute hypoxemic respiratory failure r/t COPD/PNA Referrals: Emily Ramirez MD [Primary Care Provider] - 1 Week Discharge Medications: New omeprazole 20 mg Capsule,Delayed Release(Dr/Ec) 20 mg PO DAILY@0630 Qty: 20 0RF cefuroxime axetil 500 mg tablet 500 mg PO BID 5 Days Qty: 10 0RF azithromycin 250 mg tablet 250 mg PO DAILY 5 Days Qty: 5 0RF prednisone 20 mg tablet 40 mg PO DAILY 5 Days Qty: 10 0RF Continued guaifenesin [Mucinex] 600 mg tablet extended release 12hr 600 mg PO BID PRN (Reason: Cold Symptoms) albuterol sulfate 2.5 mg /3 mL (0.083 %) solution for nebulization 2.5 mg inhalation Q4-6H PRN (Reason: wheezing) trazodone 50 mg tablet 100 mg PO BEDTIME cetirizine 10 mg tablet 10 mg PO DAILY pravastatin 40 mg tablet 40 mg PO DAILY metoprolol succinate 50 mg tablet extended release 24 hr 50 mg PO DAILY aspirin 81 mg tablet,delayed release (DR/EC) 81 mg PO DAILY tamsulosin 0.4 mg capsule 0.4 mg PO DAILY docusate sodium 100 mg capsule 100 mg PO BID PRN (Reason: Constipation) montelukast 10 mg tablet 10 mg PO BEDTIME albuterol sulfate [Ventolin HFA] 90 mcg/actuation HFA aerosol inhaler 2 puff inhalation Q4H PRN (Reason: wheezing) losartan 100 mg tablet 100 mg PO DAILY fluticasone propionate 50 mcg/actuation spray,suspension 1 spray intranasal BID PRN (Reason: Allergy Symptoms) budesonide-formoterol [Symbicort] 160-4.5 mcg/actuation HFA aerosol inhaler 2 puff INHALATION BID Spiriva Respimat 1.25 mcg/actuation mist 2 puff INHALATION DAILY multivitamin Tablet 1 tab PO DAILY Discharge Orders: Discharge Order (Routine); Ordered 11/17/22 Ordered By: Jessica Salinas Activity on Discharge: As tolerated Stand Alone Forms: Patient Portal Discharge page Care Plan Goals: resolution of infection Health Concerns: Sepsis/acute hypoxemic respiratory failure secondary to acute pneumonia and acute asthma/COPD exacerbation Plan of Treatment: Complete 5 more days of antibiotics as prescribed Complete pulse dose steroids as prescribed Continue omeprazole while on steroids Legionella and strep pneumo urine antigens are pending at the time of discharge Assessment: see discharge summary
--- NOTE | 2022-11-17 13:07 | MHC.CM.PN ---
DP: PT IS MEDICALLY CLEARED FOR DC TO STR AT [facility]. RN AWARE. BLS TRANSPORT IS BOOKED FOR 1:30 VIA [facility].
[2022-11-18 08:29] LABS: Legionella Ag Urine Not Detected (Not Detected)
[2022-11-20 15:43] LABS: Strep Pneumo Ag urine Not Detected (Not Detected)
== END 2022-11-17 13:39 | disposition skilled nursing facility (03) | DRG 720 ==
LOC: HO.ED 13:36 → HO.EDOVER 14:50 → HO.S3 15:24
PROVIDERS: Physician Assistant; Admitting Provider Physician Assistant; Emergency Provider Emergency Medicine; PCP Internal Medicine; Visit Provider Physician Assistant Medical
DX: A41.9 Sepsis, unspecified organism (principal); J96.01 Acute respiratory failure with hypoxia; J44.0 Chronic obstructive pulmonary disease with (acute) lower respiratory infection; J18.9 Pneumonia, unspecified organism; J44.1 Chronic obstructive pulmonary disease with (acute) exacerbation; J45.901 Unspecified asthma with (acute) exacerbation; D63.8 Anemia in other chronic diseases classified elsewhere; E78.2 Mixed hyperlipidemia; G62.9 Polyneuropathy, unspecified; I10 Essential (primary) hypertension; Z20.822 Contact with and (suspected) exposure to COVID-19; Z87.01 Personal history of pneumonia (recurrent); Z79.51 Long term (current) use of inhaled steroids; Z79.82 Long term (current) use of aspirin; Z79.899 Other long term (current) drug therapy
CPT/HCPCS: 36415; 71045; 80048; 80053; 80202; 81001; 82565; 82607; 82746; 83605; 83735; 83880; 84145; 84443; 84484; 85025; 87040; 87449; 87502; 87635; 87640; 87641; 87899; 93005; 94640; 97116; 97162; 99285; J0692; J1643; J1650; J2920; J2930; J3370; J3371

== ENCOUNTER → 2022-11-13 11:17 | Outpatient (BNV) | payer MEDICAID, SELFPAY | PROVIDERS: Emergency Provider Emergency Medicine; PCP Internal Medicine; Visit Provider Internal Medicine | DX: R00.0 Tachycardia, unspecified (principal) | CPT/HCPCS: 93010 ==

== ENCOUNTER → 2022-11-13 14:44 | Outpatient (BNV) | payer MEDICAID, SELFPAY | PROVIDERS: Admitting Provider Physician Assistant; Emergency Provider Emergency Medicine; PCP Internal Medicine; Visit Provider Physician Assistant | DX: J44.1 Chronic obstructive pulmonary disease with (acute) exacerbation (principal); J18.9 Pneumonia, unspecified organism | CPT/HCPCS: 99223; 99232; 99239 ==

== ENCOUNTER 2023-10-20 23:25 | Inpatient (IN) | payer MEDICAID, SELFPAY ==
--- NOTE | 2023-10-20 | ECG_ITS ---
Test Reason : DYSPNEA Blood Pressure : / mmHG Vent. Rate : 106 BPM Atrial Rate : 106 BPM P-R Int : 120 ms QRS Dur : 076 ms QT Int : 330 ms P-R-T Axes : 073 065 061 degrees QTc Int : 438 ms Sinus tachycardia Otherwise normal ECG When compared with ECG of 13-NOV-2022 11:23, No significant change was found Referred By: Generic ED Physician Electronically Signed By:David Hurst
--- NOTE | ~2023-10-20 | XR_ITS ---
EXAMINATION: XR CHEST CLINICAL INFORMATION: Dyspnea COMPARISON: Chest radiograph 11/13/2022 TECHNIQUE: Frontal view of the chest was obtained. FINDINGS: Heart size is normal and there is no evidence of CHF. Again seen are marked emphysematous changes with large bullae present in the left lung. Coarse reticulonodular opacities are seen at the right apex with resolution of a previously seen right suprahilar infiltrate. There is some increased opacity at the left lung base could represent early infiltrate. No pleural effusions. XR/XR chest 1V IMPRESSION: 1. Marked emphysematous changes with large bullae in the left lung. 2. Resolution of previously seen right suprahilar infiltrate. 3. Possible early infiltrate left lung base.
[2023-10-20 23:32] VITALS: BP 115/72; BP 176/88; PULSE 111; PULSE 118; RESP 30; TEMP 37.2; O2SAT 89; O2SAT 98; BMI 28.0
[2023-10-20 23:56] LABS: Basophils Percent Auto 0.2 % (0-2); Eosinophils Absolute Auto 0.1 X10*3/uL (0.0-0.4); Eosinophils Percent Auto 0.6 % (0-4); Hemoglobin 12.8 g/dl (14.0-18.0); Imm Gran Abs Auto 0.06 X10*3/uL (0.00-0.03); Imm Gran Pct Auto 0.3 % (0.0-0.4); Lymphocytes Percent Auto 16.6 % (20-40); MANUAL DIFF FLAG SCAN; Mean Corpuscular HGB Conc 34.6 g/dl (31.0-36.0); Mean Corpuscular Hemoglobin 31.4 pg (27.0-33.0); Mean Corpuscular Volume 90.7 fL (80.0-98.0); Mean Platelet Volume 8.1 fL (9.4-12.4); Monocytes Absolute Auto 1.7 X10*3/uL (0.1-1.2); Monocytes Percent Auto 9.6 % (2-11); Neutrophils Percent Auto 72.7 % (45-73); Platelet Count 251 X10*3/uL (160-400); Red Blood Count 4.08 X10*6/uL (4.60-5.80); Red Cell Distribution Width 13.2 % (11.0-16.0); SCAN SMEAR FLAG 1; White Blood Count 17.9 X10*3/uL (4.8-10.8)
[2023-10-20 23:59] LABS: Venous Blood Gas Refer to POC result
[2023-10-20] MEDS: Albuterol Sulfate 7.5 MG, Albuterol Sulfate (0.083%) 2.5 MG 10 MG INHALE (23:59)
[2023-10-21] VITALS (10 sets, daily range): BP systolic 110–153; BP diastolic 67–74; PULSE 73–115; RESP 16–28; TEMP 36.3–37.6; O2SAT 91–96; BMI 28.0
[2023-10-21 00:03] LABS: VBG Base Excess 5.2 mmol/L; VBG HCO3 31 mmol/L (22-26); VBG pCO2 49 mmHg; VBG pO2 58 mmHg
--- NOTE | 2023-10-21 00:12 | ED_ITS ---
HPI - SOB/Dyspnea General Chief Complaint: Dyspnea Stated Complaint: SOB Time Seen by Provider: 10/21/23 00:02 Source: patient Mode of arrival: EMS Limitations: no limitations History of Present Illness ED Provider: Dr. Dameon Mckee HPI Narrative: 62 yo male with history of HTN, COPD,HLD, pneumonia who presents emergency department for evaluation of shortness of breath x1 month with difficulty breathing this evening prior to going to bed, nonproductive cough x4 days, subjective fever, chills, and left-sided pleuritic chest pain. Patient has a history of COPD and he states that he stopped smoking 1 year prior but has a greater than 80 pack-year history of smoking. He states that over the past month he has had shortness of breath which is gotten progressively worse. Over the past 4 days he has had a cough which is nonproductive. He also complains of left-sided, sharp chest pain which is worse with breathing. He states that today had to use his inhaler and his nebulizer more frequently. Prior to going to bed he felt very short of breath and used his inhaler with no relief respond therefore he called an ambulance. Paramedics report that the patient appeared to be in respiratory distress, he was hypoxic with an O2 saturation of 89% on room air. Patient was placed on a non-rebreather and given a DuoNeb EN route. Related Data Home Medications ?Medication ?Instructions ?Recorded ?Confirmed albuterol sulfate 2.5 mg/3 mL 2.5 mg inhalation Q4-6H PRN 09/20/22 11/13/22 (0.083 %) solution for nebulization wheezing albuterol sulfate 90 mcg/actuation 2 puff inhalation Q4H PRN wheezing 09/20/22 11/13/22 aerosol inhaler (Ventolin HFA) aspirin 81 mg tablet,delayed 81 mg PO DAILY 09/20/22 11/13/22 release budesonide-formoterol HFA 160 2 puff inhalation BID 09/20/22 11/13/22 mcg-4.5 mcg/actuation aerosol inhaler (Symbicort) cetirizine 10 mg tablet 10 mg PO DAILY 09/20/22 11/13/22 docusate sodium 100 mg capsule 100 mg PO BID PRN Constipation 09/20/22 11/13/22 fluticasone propionate 50 1 spray intranasal BID PRN Allergy 09/20/22 11/13/22 mcg/actuation nasal Symptoms spray,suspension losartan 100 mg tablet 100 mg PO DAILY 09/20/22 11/13/22 metoprolol succinate 50 mg 50 mg PO DAILY 09/20/22 11/13/22 tablet,extended release 24 hr montelukast 10 mg tablet 10 mg PO BEDTIME 09/20/22 11/13/22 multivitamin 1 tab PO DAILY 09/20/22 11/13/22 pravastatin 40 mg tablet 40 mg PO DAILY 09/20/22 11/13/22 tamsulosin 0.4 mg capsule 0.4 mg PO DAILY 09/20/22 11/13/22 tiotropium bromide 1.25 2 puff inhalation DAILY 09/20/22 11/13/22 mcg/actuation mist for inhalation (Spiriva Respimat) trazodone 50 mg tablet 100 mg PO BEDTIME 09/20/22 11/13/22 guaifenesin 600 mg tablet, 600 mg PO BID PRN Cold Symptoms 11/13/22 11/13/22 extended release 12 hr (Mucinex) Previous Rx's ?Medication ?Instructions ?Recorded azithromycin 250 mg tablet 250 mg PO DAILY 5 days #5 tabs 11/17/22 cefuroxime axetil 500 mg tablet 500 mg PO BID 5 days #10 tabs 11/17/22 omeprazole 20 mg capsule,delayed 20 mg PO DAILY@0630 #20 caps 11/17/22 release prednisone 20 mg tablet 40 mg (2 x 20 mg) PO DAILY 5 days 11/17/22 #10 tabs Allergies Allergy/AdvReac Type Severity Reaction Status Date / Time lisinopril [LISINOPRIL] Allergy Intermediate UNKNOWN Verified 10/20/23 23:37 Penicillins [PENICILLINS] Allergy Unknown UNKNOWN Verified 10/20/23 23:37 UNK ABX Allergy Unknown Itching Uncoded 02/02/23 13:02 UNK BP MED Allergy Unknown Itching Uncoded 02/02/23 13:02 Review of Systems 2 Review of Systems: Yes all other systems are reviewed and are negative [facility] Past Medical History [facility] Narrative: Social history: Patient states that he has been smoking up to 2 packs of cigarettes per day for at least 40 years. He states that 1 year prior he quit smoking cigarettes. He denies alcohol and drug use. Medical History Asthma COPD (chronic obstructive pulmonary disease) Essential hypertension Mixed hyperlipidemia Mood disorder Social History Social History (System 02/02/23 @ 13:02 by Yohana Tomas) Household Members: None Housing: Apartment Do you presently have visiting nurse or other home services: No Alcohol intake: never Patient Tobacco Use Status: Never used Tobacco Advance Directives: Yes Advance Directives on File: Yes Advance Directives Date on File: 09/20/22 service: No Current occupational status: unemployed Physical Exam 2 Vital Signs: Vital Signs: Last Vital Signs Temp 99.2 F 10/21/23 01:20 Pulse 93 10/21/23 01:20 Resp 22 H 10/21/23 01:20 BP 139/74 10/21/23 01:20 Pulse Ox 92 10/21/23 01:20 O2 Del Method Non-Rebreather Ma sk 10/20/23 23:32 Oxygen Flow Rate 6 10/20/23 23:32 BMI result Body Mass Index 28.0 Vital signs revealed an elevated respiratory rate of 28, elevated heart rate of 115. Exam: General: Awake, alert , pursed lip breathing, appears tachypneic, able to answer questions in full sentences Head: Normocephalic, atraumatic EENT: PERRL, Lids normal, sclera normal, conjunctiva normal, nose normal , ears normal, throat without erythema or exudates Neck: Supple, no adenopathy Lung: Breath sounds were symmetric bilaterally, wheezing at the end of expiration, no rhonchi or rales Chest: symmetric movement, nontender Heart: regular rate and rhythm, normal S1, S2 no murmurs or rubs Abdomen: soft, non-tender, nondistended, normal bowel sounds Back: no vertebral tenderness, no CVAT Extremities: no deformities, moves all extremities symmetrically Neuro: Awake, alert, oriented, normal speech, cranial nerves intact, moves all extremities symmetrically Psych: Pleasant, cooperative Medications Administered Discontinued Medications Generic Name Dose Route Start Last Admin Trade Name Freq PRN Reason Stop Dose Admin Albuterol Sulfate 7.5 mg/ 10 mg 10/20/23 23:57 10/20/23 23:59 Albuterol Sulfate 2.5 mg INHALE 10/20/23 23:58 10 mg ONCE ONE Administration Methylprednisolone Sodium Succinate 125 mg 10/21/23 00:13 10/21/23 01:14 Methylprednisolone Sod Succ 125 Mg/2 Ml Vial IVPUSH 10/21/23 00:14 125 mg ONCE ONE Administration Medical Decision Making Medical Decision Making [facility] Narrative: 62 yo male with history of HTN, COPD,HLD, pneumonia who presents emergency department for evaluation of shortness of breath x1 month with difficulty breathing this evening prior to going to bed, nonproductive cough x4 days, subjective fever, chills, and left-sided pleuritic chest pain. Patient has been using his inhaler and nebulizers throughout the day today with no improvement of his symptoms. Prior to going to bed he became more short of breath and called an ambulance. Patient was found to be hypoxic with an O2 saturation of 89%, he was placed on a non-rebreather and given a DuoNeb. In the emergency department the patient was wheezing and was given albuterol 10 mg via nebulizer. Patient had improvement of his symptoms and his room air O2 saturation is 92%. Vital signs did reveal an elevated pulse and elevated respiratory rate. Lung exam revealed symmetric breath sounds with wheezing at the end of expiration with no rales or rhonchi. 01:28 Differential diagnosis: ?Includes but is not limited to pneumonia, bronchitis, COPD exacerbation, anemia, electrolyte abnormalities Following evaluation was ordered: CBC, CMP, troponin, VBG, chest x-ray one view, EKG Patient was initially treated with the following: Albuterol 10 mg nebulized, Solu-Medrol 125 mg IV Course: :28 My interpretation patient's laboratory evaluation as follows: WBC elevated 17,900. BUN elevated 23. Troponin was below detectable limits. Venous blood gas revealed a normal pH of 7.40 with a normal CO2 of 49 and a bicarb of 31. COVID-19, RSV and influenza were negative. Chest x-ray on my review was consistent with COPD changes, radiologist felt that the patient may be developing an early left lower lobe pneumonia. Given this finding, I did order blood cultures x2 and lactic acid. Patient will be treated with ceftriaxone 1 g IV and azithromycin 500 mg IV. I did discuss the patient's presentation over tiger text with the covering hospitalist, Dr. Gamble the patient will be admitted to the hospitalist service for further treatment Admission/Observation Consideration of admission/observation: Escalation of care including admission/observation considered Lab Data MDM Lab Attestation statement: I reviewed the patient's lab results. 10/20/23 23:51 10/20/23 23:51 Labs: Lab Results 10/20/23 10/20/23 Range/Units 23:51 23:52 WBC 17.9 H (4.8-10.8) X10*3/uL RBC 4.08 L D (4.60-5.80) X10*6/uL Hgb 12.8 L D (14.0-18.0) g/dl Hct 37.0 L D (42.0-52.0) % MCV 90.7 (80.0-98.0) fL MCH 31.4 (27.0-33.0) pg MCHC 34.6 (31.0-36.0) g/dl RDW 13.2 (11.0-16.0) % Plt Count 251 D (160-400) X10*3/uL MPV 8.1 L (9.4-12.4) fL Immature Gran % (Auto) 0.3 (0.0-0.4) % Neut % (Auto) 72.7 (45-73) % Lymph % (Auto) 16.6 L (20-40) % [place] % (Auto) 9.6 (2-11) % Eos % (Auto) 0.6 (0-4) % Baso % (Auto) 0.2 (0-2) % Lymph # (Auto) 3.0 (1.2-4.9) X10*3/uL [place] # (Auto) 1.7 H (0.1-1.2) X10*3/uL Eos # (Auto) 0.1 (0.0-0.4) X10*3/uL Baso # (Auto) 0.0 (0.0-0.2) X10*3/uL Abs Immat Gran (auto) 0.06 H (0.00-0.03) X10*3/uL Absolute Neuts (auto) 13.0 H (2.0-8.3) x10*3/uL Absolute Nucleated RBC 0.000 (0.0-0.012) X10*3/uL Nucleated RBC % (auto) 0.0 (0.0-0.2) /100WBC Smear Tech's Comments VERIFIED VBG pH 7.40 (7.32-7.43) VBG pCO2 49 mmHg VBG pO2 58 mmHg VBG HCO3 31 H (22-26) mmol/L VBG O2 Saturation 82.0 % VBG Base Excess 5.2 mmol/L Sodium 136 (135-145) mmol/L Potassium 4.2 (3.3-5.1) mmol/L Chloride 101 (96-108) mmol/L Carbon Dioxide 26 (22-29) mmol/L Anion Gap 13 (12-20) BUN 23 H (9-16) mg/dL Creatinine 1.28 (0.5-1.4) mg/dL Estim Creat Clear Calc 55.6 Estimated GFR 57 Random Glucose 91 (60-115) mg/dL Calcium 9.2 (8.4-10.2) mg/dL Total Bilirubin 0.3 (0.0-1.0) mg/dL AST 16 (5-37) U/L ALT 23 (0-40) U/L Alkaline Phosphatase 67 (39-117) U/L Troponin I High Sens < 2.7 (<3.5-35.0) ng/L Total Protein 7.0 (6.5-8.0) g/dL Albumin 3.9 (3.5-5.0) g/dL Influenza Type A (PCR) NEGATIVE (Negative) Influenza Type B (PCR) NEGATIVE (Negative) RSV RNA Qual (PCR) NEGATIVE (Negative) SARS-CoV-2 RNA (RT-PCR) NEGATIVE (Negative) Independent Interpretation I performed an independent interpretation of an: Plain X-Ray Interpretation: My interpretation patient's one-view chest x-ray is as follows: COPD changes, no significant change compared to one-view chest x-ray on 11/13/2022 Radiology Impression Discussion of test interpretation with radiology: I have reviewed the radiologist's reading. Radiologist Impression: XR chest 1V IMPRESSION: 1. Marked emphysematous changes with large bullae in the left lung. 2. Resolution of previously seen right suprahilar infiltrate. 3. Possible early infiltrate left lung base. Dictated By: Giles Ortiz MD Critical Care Time Critical Care Time Critical Care Time: Yes Total Critical Care Time: 45 Attestation: Critical Care: The patient was critically ill with a high probability of imminent or life threatening deterioration. I spent greater than 30 minutes of discontinuous time evaluating the patient,delivering critical care at the bedside, discussing and evaluating pertinent data with consultants. Critical care time does not include time spent performing separately billable procedures or teaching. Total time spent performing critical care was 45 minutes. Discharge Plan Discharge Clinical Impression: Chronic lung disease Pneumonia Qualifiers: Laterality: left Lung location: lower lobe of lung Patient Disposition: Admitted As Inpatient Prescriptions: No Action guaifenesin [Mucinex] 600 mg tablet extended release 12hr 600 mg PO BID PRN (Reason: Cold Symptoms) omeprazole 20 mg Capsule,Delayed Release(Dr/Ec) 20 mg PO DAILY@0630 Qty: 20 0RF cefuroxime axetil 500 mg tablet 500 mg PO BID 5 Days Qty: 10 0RF azithromycin 250 mg tablet 250 mg PO DAILY 5 Days Qty: 5 0RF prednisone 20 mg tablet 40 mg PO DAILY 5 Days Qty: 10 0RF albuterol sulfate 2.5 mg /3 mL (0.083 %) solution for nebulization 2.5 mg inhalation Q4-6H PRN (Reason: wheezing) trazodone 50 mg tablet 100 mg PO BEDTIME cetirizine 10 mg tablet 10 mg PO DAILY pravastatin 40 mg tablet 40 mg PO DAILY metoprolol succinate 50 mg tablet extended release 24 hr 50 mg PO DAILY aspirin 81 mg tablet,delayed release (DR/EC) 81 mg PO DAILY tamsulosin 0.4 mg capsule 0.4 mg PO DAILY docusate sodium 100 mg capsule 100 mg PO BID PRN (Reason: Constipation) montelukast 10 mg tablet 10 mg PO BEDTIME albuterol sulfate [Ventolin HFA] 90 mcg/actuation HFA aerosol inhaler 2 puff inhalation Q4H PRN (Reason: wheezing) losartan 100 mg tablet 100 mg PO DAILY fluticasone propionate 50 mcg/actuation spray,suspension 1 spray intranasal BID PRN (Reason: Allergy Symptoms) budesonide-formoterol [Symbicort] 160-4.5 mcg/actuation HFA aerosol inhaler 2 puff INHALATION BID Spiriva Respimat 1.25 mcg/actuation mist 2 puff INHALATION DAILY multivitamin Tablet 1 tab PO DAILY Print Language: Polish
[2023-10-21 00:16] LABS: Alanine Aminotransferase 23 U/L (0-40); Albumin Level 3.9 g/dL (3.5-5.0); Alkaline Phosphatase 67 U/L (39-117); Anion Gap 13 (12-20); Aspartate Amino Transferase 16 U/L (5-37); Bilirubin Total 0.3 mg/dL (0.0-1.0); Blood Urea Nitrogen 23 mg/dL (9-16); Calcium 9.2 mg/dL (8.4-10.2); Carbon Dioxide 26 mmol/L (22-29); Chloride 101 mmol/L (96-108); Creatinine Clr Calc Pharmacy 55.6; Estimated Glomerular Filt Rate 57; Glucose Random 91 mg/dL (60-115); Potassium 4.2 mmol/L (3.3-5.1); Sodium 136 mmol/L (135-145)
[2023-10-21 00:19] LABS: Troponin-I High Sensitivity < 2.7 ng/L (<3.5-35.0)
[2023-10-21 00:25] LABS: SLIDE REVIEW VERIFIED
[2023-10-21 00:49] LABS: Influenza A PCR NEGATIVE (Negative); Influenza B PCR NEGATIVE (Negative); Resp Syncy Virus RNA Qual PCR NEGATIVE (Negative); SARS COV2 PCR INHOUSE NEGATIVE (Negative)
[2023-10-21] MEDS: methylPREDNISolone Sod Succ 125 MG/2 ML VIAL IVPUSH (01:14)
--- NOTE | 2023-10-21 01:54 | P.HPHOSP_ITS ---
History of Present Illness Date of Service: 10/21/23 Chief Complaint: Dyspnea This is a 62-year-old male with pertinent history of essential hypertension, COPD not on home oxygen, mood disorder, mixed hyperlipidemia who presents to the emergency department for evaluation of dyspnea. Patient states his symptoms started 4 days prior to presentation. He has been having intermittent productive cough, subjective fever and chills. Patient also started having dyspnea which is worse with exertion. This was accompanied with wheezing. Patient tried his home inhaler but without any relief. Patient states the dyspnea has been worsening over the last few weeks. Admits pleuritic chest discomfort along with intermittent productive cough. As per EMS, patient was satting 89% on room air and was given DuoNebs enroute. He denies nausea, vomiting, palpitations, chest discomfort, abdominal pain, changes in urinary or bowel habits. In the emergency department, patient continued to be dyspneic and wheezing even after multiple DuoNeb treatments. Imaging with left-sided infiltrate Review of Systems 2 Cardiovascular: Cardiovascular: Reports dyspnea on exertion Respiratory: Respiratory: Reports cough, Reports dyspnea on exertion and Reports wheezing Gastrointestinal: Gastrointestinal: Reports no additional gastrointestinal complaints Genitourinary: Genitourinary: Reports no additional male genitourinary complaints Allergic/Immunologic: Allergic/Immunologic: Reports wheezing [facility] Medical History Mood disorder Mixed hyperlipidemia Essential hypertension Chronic lung disease COPD (chronic obstructive pulmonary disease) Asthma Pertinent family history: No family history of early CAD Social History Household Members: None Housing: Apartment Do you presently have visiting nurse or other home services: No Alcohol intake: never Patient Tobacco Use Status: Former Tobacco user Smoked in Last 30 Days: No Use of substances other than those prescribed or required for medical reasons: No Advance Directives: Yes Advance Directives on File: Yes Advance Directives Date on File: 09/20/22 Nutrition Risks: No Nutritional Risk service: No Current occupational status: unemployed Meds Allergies Allergy/AdvReac Type Severity Reaction Status Date / Time lisinopril [LISINOPRIL] Allergy Intermediate UNKNOWN Verified 10/20/23 23:37 Penicillins [PENICILLINS] Allergy Unknown UNKNOWN Verified 10/20/23 23:37 UNK ABX Allergy Unknown Itching Uncoded 02/02/23 13:02 UNK BP MED Allergy Unknown Itching Uncoded 02/02/23 13:02 Active Medications: Current Medications Ceftriaxone Sodium 1 gm/ (Sodium Chloride) 50 mls @ 100 mls/hr IV ONCE ONE Stop: 10/21/23 01:56 Azithromycin 500 mg/ Sodium (Chloride) 250 mls @ 125 mls/hr IV ONCE ONE Stop: 10/21/23 03:26 Sodium Chloride (Ns) 1,000 mls @ 999 mls/hr IV .Q1H1M STA Stop: 10/21/23 02:32 Home Medications ?Medication ?Instructions ?Recorded ?Confirmed ?Last Taken ?Type albuterol sulfate 2.5 mg/3 mL 2.5 mg inhalation Q4-6H PRN 09/20/22 11/13/22 09/19/22 History (0.083 %) solution for nebulization wheezing albuterol sulfate 90 mcg/actuation 2 puff inhalation Q4H PRN wheezing 09/20/22 11/13/22 09/19/22 History aerosol inhaler (Ventolin HFA) aspirin 81 mg tablet,delayed 81 mg PO DAILY 09/20/22 11/13/22 09/19/22 History release budesonide-formoterol HFA 160 2 puff inhalation BID 09/20/22 11/13/22 09/19/22 History mcg-4.5 mcg/actuation aerosol inhaler (Symbicort) cetirizine 10 mg tablet 10 mg PO DAILY 09/20/22 11/13/22 09/19/22 History docusate sodium 100 mg capsule 100 mg PO BID PRN Constipation 09/20/22 11/13/22 09/19/22 History fluticasone propionate 50 1 spray intranasal BID PRN Allergy 09/20/22 11/13/22 09/19/22 History mcg/actuation nasal Symptoms spray,suspension losartan 100 mg tablet 100 mg PO DAILY 09/20/22 11/13/22 09/19/22 History metoprolol succinate 50 mg 50 mg PO DAILY 09/20/22 11/13/22 09/19/22 History tablet,extended release 24 hr montelukast 10 mg tablet 10 mg PO BEDTIME 09/20/22 11/13/22 09/19/22 History multivitamin 1 tab PO DAILY 09/20/22 11/13/22 09/19/22 History pravastatin 40 mg tablet 40 mg PO DAILY 09/20/22 11/13/22 09/19/22 History tamsulosin 0.4 mg capsule 0.4 mg PO DAILY 09/20/22 11/13/22 09/19/22 History tiotropium bromide 1.25 2 puff inhalation DAILY 09/20/22 11/13/22 09/19/22 History mcg/actuation mist for inhalation (Spiriva Respimat) trazodone 50 mg tablet 100 mg PO BEDTIME 09/20/22 11/13/22 09/19/22 History guaifenesin 600 mg tablet, 600 mg PO BID PRN Cold Symptoms 11/13/22 11/13/22 Unknown History extended release 12 hr (Mucinex) Physical Exam 2 Vital Signs and Narrative: Vital Signs: Last Vital Signs Temp 99.2 F 10/21/23 01:20 Pulse 93 10/21/23 01:20 Resp 22 H 10/21/23 01:20 BP 139/74 10/21/23 01:20 Pulse Ox 92 10/21/23 01:20 O2 Del Method Non-Rebreather Ma sk 10/20/23 23:32 Oxygen Flow Rate 6 10/20/23 23:32 BMI result Body Mass Index 28.0 Middle-aged male lying in bed in mild distress Neck supple, no JVD Regular rate and rhythm, S1-S2 heard Bilateral wheezing with tachypnea Abdomen soft nontender, no guarding, no rigidity Patient is awake, alert and oriented to self, place, time and person ; no focal motor deficit Psych: Normal mood No pedal edema Results Labs 10/21/23 04:46 10/21/23 04:46 Labs: Laboratory Results - last 24 hr 10/20/23 10/20/23 23:51 23:52 MCV 90.7 MCH 31.4 MCHC 34.6 RDW 13.2 Plt Count 251 D MPV 8.1 L Immature Gran % (Auto) 0.3 Neut % (Auto) 72.7 Lymph % (Auto) 16.6 L [place] % (Auto) 9.6 Eos % (Auto) 0.6 Baso % (Auto) 0.2 Lymph # (Auto) 3.0 [place] # (Auto) 1.7 H Eos # (Auto) 0.1 Baso # (Auto) 0.0 Abs Immat Gran (auto) 0.06 H Absolute Neuts (auto) 13.0 H Absolute Nucleated RBC 0.000 Nucleated RBC % (auto) 0.0 Smear Tech's Comments VERIFIED VBG pH 7.40 VBG pCO2 49 VBG pO2 58 VBG HCO3 31 H VBG O2 Saturation 82.0 VBG Base Excess 5.2 Anion Gap 13 Estim Creat Clear Calc 55.6 Estimated GFR 57 Random Glucose 91 Calcium 9.2 Total Bilirubin 0.3 AST 16 ALT 23 Alkaline Phosphatase 67 Troponin I High Sens < 2.7 Total Protein 7.0 Albumin 3.9 Influenza Type A (PCR) NEGATIVE Influenza Type B (PCR) NEGATIVE RSV RNA Qual (PCR) NEGATIVE SARS-CoV-2 RNA (RT-PCR) NEGATIVE Imaging Radiologist's Impressions: Impressions Chest X-Ray 10/20/23 23:57 IMPRESSION: 1. Marked emphysematous changes with large bullae in the left lung. 2. Resolution of previously seen right suprahilar infiltrate. 3. Possible early infiltrate left lung base. Assessment and Plan (1) COPD exacerbation: Status: Acute (2) Pneumonia: Qualifiers: Laterality: left Lung location: lower lobe of lung Status: Acute Plan This is a 62-year-old male with pertinent history of essential hypertension, COPD not on home oxygen, mood disorder, mixed hyperlipidemia who presents to the emergency department for evaluation of dyspnea. #. Acute exacerbation of COPD due to pneumonia with sepsis. Will admit and initiate empiric IV antibiotics for CAP. Resuscitated with IV crystalloids. Lactic acid and blood culture obtained. Scheduled and p.r.n. DuoNebs. Initiating systemic steroids. Continue home inhaler #. Essential hypertension. Continue home antihypertensives #. Mood disorder. Continue home mood stabilizers #. Mixed hyperlipidemia: On statin Med rec pending DVT prophylaxis: Lovenox Full code Cardiac diet Admit as inpatient and will require two night minimum hospital stay for IV antibiotics, monitoring of respiratory status (as above), which is not possible in a lesser acute setting. Quality Stroke Does the patient have a stroke diagnosis?: No VTE Prior VTE?: No VTE Risk Level:: Medical - moderate - high VTE Device Contraindication: Treatment Not Indicated VTE Drug Contraindication: N/A - Med Ordered
[2023-10-21] MEDS: 0.9 % Sodium Chloride 1,000 ML 999 ML IV (02:18)
[2023-10-21] MEDS: cefTRIAXone sodium 1 GM in 0.9 % Sodium Chloride 50 ML IV ×2 (02:18→21:59)
[2023-10-21 02:35] LABS: Lactic Acid 1.1 mmol/L (0.5-2.0)
[2023-10-21] MEDS: Azithromycin 500 MG in 0.9 % Sodium Chloride 250 ML 125 MG IV ×2 (02:48→22:37)
[2023-10-21 05:04] LABS: Basophils Percent Auto 0.1 % (0-2); Hematocrit 34.9 % (42.0-52.0); Hemoglobin 12.2 g/dl (14.0-18.0); Imm Gran Pct Auto 0.5 % (0.0-0.4); Lymphocytes Absolute Auto 0.5 X10*3/uL (1.2-4.9); Lymphocytes Percent Auto 2.7 % (20-40); MANUAL DIFF FLAG SCAN; Mean Corpuscular Hemoglobin 31.7 pg (27.0-33.0); Mean Corpuscular Volume 90.6 fL (80.0-98.0); Mean Platelet Volume 8.3 fL (9.4-12.4); Monocytes Absolute Auto 0.3 X10*3/uL (0.1-1.2); Monocytes Percent Auto 1.5 % (2-11); Neutrophils Absolute Auto 17.8 x10*3/uL (2.0-8.3); Neutrophils Percent Auto 95.2 % (45-73); Platelet Count 251 X10*3/uL (160-400); Red Blood Count 3.85 X10*6/uL (4.60-5.80); Red Cell Distribution Width 13.2 % (11.0-16.0); SCAN SMEAR FLAG 1; White Blood Count 18.7 X10*3/uL (4.8-10.8)
[2023-10-21 05:17] LABS: Anion Gap 12 (12-20); Blood Urea Nitrogen 19 mg/dL (9-16); Calcium 8.5 mg/dL (8.4-10.2); Carbon Dioxide 21 mmol/L (22-29); Chloride 107 mmol/L (96-108); Creatinine Clr Calc Pharmacy 76.5; Estimated Glomerular Filt Rate > 60; Glucose Random 138 mg/dL (60-115); Potassium 4.2 mmol/L (3.3-5.1); Sodium 136 mmol/L (135-145)
--- NOTE | 2023-10-21 07:52 | PM.EVENT ---
Event Note Date of Service: 10/21/23 Event Note: This is a 62-year-old male with pertinent history of essential hypertension, COPD not on home oxygen, mood disorder, mixed hyperlipidemia who presents to the emergency department for evaluation of dyspnea. Acute exacerbation of COPD due to pneumonia with sepsis empiric IV antibiotics for CAP. Resuscitated with IV crystalloids. Solumedrol and duonebs Essential hypertension Continue home antihypertensives Mood disorder Continue home mood stabilizers Mixed hyperlipidemia On statin Med rec pending DVT prophylaxis: Lovenox Full code attending Dr. Palomares Admit as inpatient and will require two night minimum hospital stay for IV antibiotics, monitoring of respiratory status (as above), which is not possible in a lesser acute setting. Time Spent With Patient Time: Total time managing care of this patient today ____ minutes.
[2023-10-21] MEDS: Albuterol/Iprat 2.5/0.5MG 3 ML AMPUL.NEB INHALE ×5 (08:03→19:21)
[2023-10-21] MEDS: Enoxaparin Sodium 40 MG/0.4 ML SYRINGE SUBCUT (08:14)
[2023-10-21] MEDS: methylPREDNISolone Sod Succ 40 MG/ML VIAL IVPUSH ×2 (08:14→15:56)
[2023-10-21] MEDS: 0.9 % Sodium Chloride Flush 3 ML SYRINGE IVFLUSH ×3 (08:26→20:05)
--- NOTE | 2023-10-21 09:37 | PHA.MEDREC ---
Pharmacy Consult ? Medication Reconciliation Pharmacy has completed the medication reconciliation. Spoke to patient at bedside, they provided a medication list which matched most of what we had already. Confirmed that they are no longer taking Amlodipine, Roflumilast, or Trazadone.
[2023-10-21] MEDS: Loratadine 10 MG TABLET PO (10:23)
[2023-10-21] MEDS: Tamsulosin HCL 0.4 MG CAPSULE PO (10:23)
[2023-10-21] MEDS: Aspirin Enteric Coated 81 MG TABLET.DR PO (10:23)
[2023-10-21] MEDS: Multivitamin TABLET 1 TAB PO (10:23)
[2023-10-21] MEDS: Escitalopram Oxalate 10 MG TABLET PO (10:23)
[2023-10-21] MEDS: Metoprolol Succinate ER 25 MG TAB.ER.24H PO (10:24)
[2023-10-21] MEDS: Losartan Potassium 50 MG TABLET 100 MG PO (10:24)
[2023-10-21] MEDS: Cyanocobalamin (Vitamin B-12) 100 MCG TABLET PO (11:19)
--- NOTE | 2023-10-21 15:43 | MHC.CM.PN ---
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 HE SAYS HIS INS CM WILL ASSIST HIM FURTHER PT REPORTS HE USES A WALKER FOR DME, HE SAYS HE HAS BEEN TRYING TO GET OXYGEN BUT SO FAR HAS NOT QUALIFIED PT HAS A HCP ON FILE HE CONFIRMS IS ACCURATE PCP: ROXANN MENDEZ DCP: [facility] PT MAY NEED [facility] HE IS UNSURE IF HIS [facility] CM WILL BE BACK FROM [place]
[2023-10-21] MEDS: Atorvastatin Calcium 80 MG TABLET PO (20:04)
[2023-10-21] MEDS: hydrOXYzine HCL 50 MG TABLET PO (20:04)
[2023-10-21] MEDS: Montelukast Sodium 10 MG TABLET PO (20:04)
[2023-10-22] VITALS (8 sets, daily range): BP systolic 132–143; BP diastolic 71–75; PULSE 73–109; RESP 18; TEMP 36–36.3; O2SAT 87–923
[2023-10-22] MEDS: methylPREDNISolone Sod Succ 40 MG/ML VIAL IVPUSH ×3 (00:35→15:22)
[2023-10-22] MEDS: Omeprazole 20 MG CAPSULE.DR PO (05:42)
[2023-10-22 06:50] LABS: Anion Gap 12 (12-20); Blood Urea Nitrogen 21 mg/dL (9-16); Calcium 8.8 mg/dL (8.4-10.2); Carbon Dioxide 22 mmol/L (22-29); Chloride 105 mmol/L (96-108); Estimated Glomerular Filt Rate > 60; Glucose Random 149 mg/dL (60-115); Potassium 4.3 mmol/L (3.3-5.1); Sodium 135 mmol/L (135-145)
[2023-10-22] MEDS: Enoxaparin Sodium 40 MG/0.4 ML SYRINGE SUBCUT (08:09)
[2023-10-22] MEDS: Losartan Potassium 50 MG TABLET 100 MG PO (08:10)
[2023-10-22] MEDS: Aspirin Enteric Coated 81 MG TABLET.DR PO (08:10)
[2023-10-22] MEDS: Multivitamin TABLET 1 TAB PO (08:10)
[2023-10-22] MEDS: Loratadine 10 MG TABLET PO (08:11)
[2023-10-22] MEDS: Escitalopram Oxalate 10 MG TABLET PO (08:11)
[2023-10-22] MEDS: Cyanocobalamin (Vitamin B-12) 100 MCG TABLET PO (08:11)
[2023-10-22] MEDS: Metoprolol Succinate ER 25 MG TAB.ER.24H PO (08:11)
[2023-10-22] MEDS: Tamsulosin HCL 0.4 MG CAPSULE PO (08:11)
[2023-10-22] MEDS: 0.9 % Sodium Chloride Flush 3 ML SYRINGE IVFLUSH ×2 (08:13→15:22)
--- NOTE | 2023-10-22 08:27 | P.PNIM_ITS ---
Subjective Subjective Date of Service: 10/22/23 Review of Systems Follow-up COPD exacerbation, pneumonia Feeling better but still with dry cough Physical Exam 2 Vital Signs: Vital Signs: Last Vital Signs Temp 97.0 F 10/22/23 07:52 Pulse 76 10/22/23 07:52 Resp 18 10/22/23 07:52 BP 132/71 10/22/23 07:52 Pulse Ox 97 10/22/23 07:52 O2 Del Method Nasal Cannula 10/22/23 07:52 O2 Flow Rate 2 10/22/23 07:52 Oxygen Flow Rate 6 10/20/23 23:32 BMI result Body Mass Index 28.0 Appearing in no acute distress lung sounds diminished with mild expiratory wheezing heart regular rate rhythm, clear S1, S2 positive bowel sounds, abdomen is soft, nontender neuro patient is alert x3, no focal deficits Objective Data Active Medications Acetaminophen (Acetaminophen 325 Mg Tablet) 650 mg PO Q6H PRN PRN Reason: Pain, Mild (Pain Scale 1-3), fever or headache Albuterol/Ipratropium (Albuterol/Iprat 2.5/0.5mg 3 Ml Ampul.Neb) 3 ml INHALE RQ4H WHILE AWAKE [facility] Last Admin: 10/21/23 19:21 Dose: 3 ml Documented By: JAYA Albuterol/Ipratropium (Albuterol/Iprat 2.5/0.5mg 3 Ml Ampul.Neb) 3 ml INHALE Q4H PRN PRN Reason: Wheezing Last Admin: 10/21/23 13:49 Dose: 3 ml Documented By: OLAF Aspirin (Aspirin Enteric Coated 81 Mg Tablet.) 81 mg PO DAILY [facility] Last Admin: 10/22/23 08:10 Dose: 81 mg Documented By: NOLAN Atorvastatin Calcium (Atorvastatin Calcium 80 Mg Tablet) 80 mg PO BEDTIME [facility] Last Admin: 10/21/23 20:04 Dose: 80 mg Documented By: SONIAILMaricel Calcium Carbonate (Calcium Carbonate 750 Mg Tab.Chew) 750 mg PO Q4H PRN PRN Reason: Heartburn Cyanocobalamin (Cyanocobalamin (Vitamin B-12) 100 Mcg Tablet) 100 mcg PO DAILY [facility] Last Admin: 10/22/23 08:11 Dose: 100 mcg Documented By: NOLAN Enoxaparin Sodium (Enoxaparin Sodium 40 Mg/0.4 Ml Syringe) 40 mg SUBCUT Q24H [facility] Last Admin: 10/22/23 08:09 Dose: 40 mg Documented By: NOLAN Escitalopram Oxalate (Escitalopram Oxalate 10 Mg Tablet) 10 mg PO DAILY [facility] Last Admin: 10/22/23 08:11 Dose: 10 mg Documented By: NOLAN Fluticasone Propionate (Fluticasone Propionate Nasal 16 Gm [place]) 1 spray NOSTRIL-B DAILY PRN PRN Reason: Congestion Hydroxyzine HCl (Hydroxyzine Hcl 50 Mg Tablet) 50 mg PO BEDTIME [facility] Last Admin: 10/21/23 20:04 Dose: 50 mg Documented By: KIARA Ceftriaxone Sodium 1 gm/ (Sodium Chloride) 50 mls @ 100 mls/hr IV Q24H [facility] Last Infusion: 10/21/23 22:38 Dose: Infused Documented By: KIARA Azithromycin 500 mg/ Sodium (Chloride) 250 mls @ 125 mls/hr IV Q24H [facility] Last Infusion: 10/22/23 00:37 Dose: Infused Documented By: KIARA Loratadine (Loratadine 10 Mg Tablet) 10 mg PO DAILY [facility] Last Admin: 10/22/23 08:11 Dose: 10 mg Documented By: NOLAN Losartan Potassium (Losartan Potassium 50 Mg Tablet) 100 mg PO DAILY [facility]; Protocol Last Admin: 10/22/23 08:10 Dose: 100 mg Documented By: NOLAN Magnesium Hydroxide (Milk Of Magnesia 30 Ml Oral.Susp) 30 ml PO DAILY PRN PRN Reason: Constipation Melatonin (Melatonin 3 Mg Tablet) 6 mg PO BEDTIME PRN PRN Reason: Insomnia Methylprednisolone Sodium Succinate (Methylprednisolone Sod Succ 40 Mg/Ml Vial) 40 mg IVPUSH Q8H [facility] Last Admin: 10/22/23 08:09 Dose: 40 mg Documented By: NOLAN Metoprolol Succinate (Metoprolol Succinate Er 25 Mg Tab.Er.24h) 25 mg PO DAILY [facility]; Protocol Last Admin: 10/22/23 08:11 Dose: 25 mg Documented By: NOLAN Montelukast Sodium (Montelukast Sodium 10 Mg Tablet) 10 mg PO BEDTIME [facility] Last Admin: 10/21/23 20:04 Dose: 10 mg Documented By: KIARA Multivitamins/Vitamin C (Multivitamin Tablet) 1 tab PO DAILY [facility] Last Admin: 10/22/23 08:10 Dose: 1 tab Documented By: NOLAN Omeprazole (Omeprazole 20 Mg Werner.) 20 mg PO DAILY@0630 [facility] Last Admin: 10/22/23 05:42 Dose: 20 mg Documented By: KIARA Ondansetron HCl (Ondansetron Hcl 4 Mg/2 Ml Vial) 4 mg IVPUSH Q8H PRN PRN Reason: Nausea and Vomiting Sodium Chloride (0.9 % Sodium Chloride Flush 3 Ml Syringe) 3 ml IVFLUSH QSHIFT [facility] Last Admin: 10/22/23 08:13 Dose: 3 ml Documented By: NOLAN Tamsulosin HCl (Tamsulosin Hcl 0.4 Mg Capsule) 0.4 mg PO DAILY [facility] Last Admin: 10/22/23 08:11 Dose: 0.4 mg Documented By: NOLAN Labs 10/21/23 04:46 10/22/23 05:41 Labs: Laboratory Results - last 24 hr 10/22/23 05:41 Hold Purple Top SEE NOTE Anion Gap 12 Estim Creat Clear Calc 90.0 Estimated GFR > 60 Random Glucose 149 H Calcium 8.8 Microbiology Microbiology Results: Microbiology 10/21/23 02:16 Blood Culture - Preliminary Blood - Venous No growth after 24 hours. 10/21/23 02:16 Blood Culture - Preliminary Blood - Venous No growth after 24 hours. Assessment and Plan (1) Pneumonia: Status: Acute (2) Chronic lung disease: Status: Acute Plan This is a 62-year-old male with pertinent history of essential hypertension, COPD not on home oxygen, mood disorder, mixed hyperlipidemia who presents to the emergency department for evaluation of dyspnea. Acute exacerbation of COPD due to pneumonia with sepsis empiric IV antibiotics for CAP. Resuscitated with IV crystalloids. Solumedrol and duonebs Still with dry cough, Mucinex added Home oxygen evaluation Essential hypertension Stable blood pressure Continue losartan and metoprolol Mood disorder Continue home mood stabilizers Mixed hyperlipidemia On aspirin and statin BPH Continue tamsulosin GERD Continue PPI DVT prophylaxis: Lovenox Full code attending Dr. Florence continue hospital stay for IV antibiotics, monitoring of respiratory status (as above), which is not possible in a lesser acute setting. Quality Stroke Does the patient have a stroke diagnosis?: No VTE Prior VTE?: No VTE Risk Level:: Medical - moderate - high VTE Device Contraindication: Treatment Not Indicated VTE Drug Contraindication: N/A - Med Ordered
[2023-10-22] MEDS: Albuterol/Iprat 2.5/0.5MG 3 ML AMPUL.NEB INHALE ×4 (09:36→21:18)
[2023-10-22] MEDS: guaiFENesin LA 600 MG TAB.ER.12H PO ×2 (10:10→20:26)
--- NOTE | 2023-10-22 14:12 | MHC.CM.PN ---
HOME O2 EVAL DONE, PT QUALIFIES FOR 2L O2 NC W/AMBULATION/ACTIVITY, ANTIC PT WILL BE SET UP W/LINCARE ON DATE OF DC, ANTIC DC HOME TOMORROW 10/22 W/RESUMP OF SERVICES, CM WILL CONT TO FOLLOW DC NEEDS.
[2023-10-22] MEDS: hydrOXYzine HCL 50 MG TABLET PO (20:26)
[2023-10-22] MEDS: Montelukast Sodium 10 MG TABLET PO (20:26)
[2023-10-22] MEDS: Atorvastatin Calcium 80 MG TABLET PO (20:26)
[2023-10-22] MEDS: cefTRIAXone sodium 1 GM in 0.9 % Sodium Chloride 50 ML IV (22:19)
[2023-10-22] MEDS: Azithromycin 500 MG in 0.9 % Sodium Chloride 250 ML 125 MG IV (22:20)
[2023-10-23] MEDS: methylPREDNISolone Sod Succ 40 MG/ML VIAL IVPUSH ×2 (00:55→08:09)
[2023-10-23] MEDS: 0.9 % Sodium Chloride Flush 3 ML SYRINGE IVFLUSH ×2 (00:55→08:09)
[2023-10-23 03:30] VITALS: BP 122/62; PULSE 79; RESP 18; TEMP 36.1; O2SAT 97
[2023-10-23] MEDS: Omeprazole 20 MG CAPSULE.DR PO (05:43)
[2023-10-23 07:31] VITALS: PULSE 79; RESP 18; O2SAT 95
[2023-10-23] MEDS: Albuterol/Iprat 2.5/0.5MG 3 ML AMPUL.NEB INHALE ×2 (07:31→11:11)
[2023-10-23 07:57] VITALS: BP 145/80; PULSE 93; RESP 20; TEMP 36.5; O2SAT 96
[2023-10-23] MEDS: Cyanocobalamin (Vitamin B-12) 100 MCG TABLET PO (08:08)
[2023-10-23] MEDS: Loratadine 10 MG TABLET PO (08:08)
[2023-10-23] MEDS: Metoprolol Succinate ER 25 MG TAB.ER.24H PO (08:08)
[2023-10-23] MEDS: Aspirin Enteric Coated 81 MG TABLET.DR PO (08:08)
[2023-10-23] MEDS: Losartan Potassium 50 MG TABLET 100 MG PO (08:08)
[2023-10-23] MEDS: Escitalopram Oxalate 10 MG TABLET PO (08:08)
[2023-10-23] MEDS: Multivitamin TABLET 1 TAB PO (08:08)
[2023-10-23] MEDS: Tamsulosin HCL 0.4 MG CAPSULE PO (08:09)
[2023-10-23] MEDS: guaiFENesin LA 600 MG TAB.ER.12H PO (08:09)
[2023-10-23] MEDS: Enoxaparin Sodium 40 MG/0.4 ML SYRINGE SUBCUT (08:10)
--- NOTE | 2023-10-23 09:34 | PM.DS ---
DS: Providers Provider Date of Service: 10/23/23 Date of admission: 10/21/23 01:52 Primary care physician: Maria Fernanda Linares MD DS: Diagnosis Discharge Diagnosis (1) Pneumonia: Status: Acute (2) Chronic lung disease: Status: Acute DS: Summary Hospital Course Hospital Course: History and physical as per admitting provider. This is a 62-year-old male with pertinent history of essential hypertension, COPD not on home oxygen, mood disorder, mixed hyperlipidemia who presents to the emergency department for evaluation of dyspnea. Patient states his symptoms started 4 days prior to presentation. He has been having intermittent productive cough, subjective fever and chills. Patient also started having dyspnea which is worse with exertion. This was accompanied with wheezing. Patient tried his home inhaler but without any relief. Patient states the dyspnea has been worsening over the last few weeks. Admits pleuritic chest discomfort along with intermittent productive cough. As per EMS, patient was satting 89% on room air and was given DuoNebs enroute. He denies nausea, vomiting, palpitations, chest discomfort, abdominal pain, changes in urinary or bowel habits. In the emergency department, patient continued to be dyspneic and wheezing even after multiple DuoNeb treatments. Imaging with left-sided infiltrate [age] old man treated for acute on chronic respiratory failure secondary to COPD exacerbation and pneumonia with sepsis. Patient was treated with Rocephin and azithromycin, IV fluids, IV Solu-Medrol and scheduled DuoNebs. He had a dry cough and Mucinex was added which did help. Had a home oxygen evaluation and qualified for 2 L with ambulation. He is to follow up with the [employer] supervisor for management of this. Plan is to discharge patient home, patient is in agreement with this. Hypertension. Blood pressure remained stable. Continue losartan metoprolol Mental health. Continue home mood stabilizers Hyperlipidemia. Continue aspirin and statin BPH. Continue tamsulosin GERD. Continue PPI Time Attestation Discharge Coordination Time (in mins): 32 Quality: Safe Use of Opioids Does Pt have an Active Cancer Diagnosis on the Problem List?: No Quality: Stroke Does the patient have a stroke diagnosis?: No Physical Exam Vital Signs: Vital Signs: Last Vital Signs Temp 97.7 F 10/23/23 07:57 Pulse 93 10/23/23 07:57 Resp 20 10/23/23 07:57 BP 145/80 H 10/23/23 07:57 Pulse Ox 96 10/23/23 07:57 O2 Del Method Nasal Cannula 10/23/23 07:57 O2 Flow Rate 2.0 10/23/23 07:57 Oxygen Flow Rate 6 10/20/23 23:32 BMI result Body Mass Index 28.0 Appearing in no acute distress head is normocephalic atraumatic eyes pupils are PERRLA sclera is anicteric mouth throat mucous membranes are intact and moist neck is supple no lymphadenopathy, no JVD noted lung sounds dim throughout heart regular rate rhythm, clear S1, S2 positive bowel sounds, abdomen is soft, nontender neuro patient is alert x3, no focal deficits DS: Data Data Completed and Pending Labs on day of discharge: Preliminary micro results at discharge 10/21/23 02:16 Blood Culture - Preliminary Blood - Venous No growth after 48 hours. 10/21/23 02:16 Blood Culture - Preliminary Blood - Venous No growth after 48 hours. Discharge Plan Discharge Anticipated Discharge Date/Time: 10/23/23 09:27 Patient Disposition: Home, Self-Care Discharge Diagnosis: Acute on chronic respiratory failure secondary to COPD and community-acquired pneumonia Referrals: Maria Fernanda Linares MD [Primary Care Provider] - 1 Week Benjamin Kaiser MD [Physician] - 1 Week Discharge Medications: New guaifenesin [Mucinex] 600 mg Tablet Extended Release 12hr 600 mg PO BID Qty: 6 0RF prednisone 10 mg tablet See Taper PO DIRECTED Qty: 30 0RF Taper: Prednisone 40 mg daily for 3 Days and 0 Hour 30 mg daily for 3 Days and 0 Hour 20 mg daily for 3 Days and 0 Hour 10 mg daily for 3 Days and 0 Hour Rx Instructions: see taper instructions levofloxacin 500 mg tablet 500 mg PO DAILY Qty: 3 0RF Continued albuterol sulfate 2.5 mg /3 mL (0.083 %) solution for nebulization 2.5 mg inhalation Q4-6H PRN (Reason: wheezing) cetirizine 10 mg tablet 10 mg PO DAILY aspirin 81 mg tablet,delayed release (DR/EC) 81 mg PO DAILY tamsulosin 0.4 mg capsule 0.4 mg PO DAILY montelukast 10 mg tablet 10 mg PO BEDTIME albuterol sulfate [Ventolin HFA] 90 mcg/actuation HFA aerosol inhaler 2 puff inhalation Q4H PRN (Reason: wheezing) losartan 100 mg tablet 100 mg PO DAILY budesonide-formoterol [Symbicort] 160-4.5 mcg/actuation HFA aerosol inhaler 2 puff INHALATION BID Spiriva Respimat 1.25 mcg/actuation mist 2 puff INHALATION DAILY multivitamin Tablet 1 tab PO DAILY hydroxyzine HCl 25 mg tablet 50 mg PO BEDTIME metoprolol succinate 25 mg tablet extended release 24 hr 25 mg PO DAILY rosuvastatin 40 mg tablet 40 mg PO BEDTIME escitalopram oxalate 10 mg tablet 10 mg PO DAILY cyanocobalamin (vitamin B-12) [Vitamin B-12] 100 mcg Tablet 100 mcg PO DAILY omeprazole 20 mg Capsule,Delayed Release(Dr/Ec) 20 mg PO DAILY@0630 fluticasone propionate 50 mcg/actuation [place],Suspension 1 spray INTRANASAL DAILY PRN (Reason: Congestion) Rx Instructions: administer into each nostril zinc acetate 50 mg (zinc) Capsule 50 mg PO DAILY vitamin E 268 mg (400 unit) Capsule 268 mg PO DAILY Discharge Orders: Discharge Order (Routine); Ordered 10/23/23 Ordered By: Aleida Kaiser Diet: Advance to usual diet Activity on Discharge: As tolerated Stand Alone Forms: Patient Portal Discharge page Print Language: Kinyarwanda Care Plan Goals: Complete antibiotic course for pneumonia Complete prednisone taper You have been started on oxygen for home use. Use 2 L of oxygen. You will need to follow-up with a [employer] supervisor outpatient for management of this. Health Concerns: Acute on chronic respiratory failure secondary to COPD and community-acquired pneumonia Plan of Treatment: Follow-up with primary care provider as needed Take all medications as prescribed Assessment: See discharge summary
--- NOTE | 2023-10-23 10:10 | MHC.CM.PN ---
Addendum entered by Marietta Washington 10/23/23 10:19: Eduardo is the O2 provider. Confirmed with respiratory Home O2 is set up. 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 Original Note: Patient is discharged to home today. He will return to his [facility] APT. The manager front has been called. STEPHON spoke with Linda. She was informed that the patient will return with new Oxygen today.
[2023-10-23 11:11] VITALS: PULSE 93; RESP 20; O2SAT 94
== END 2023-10-23 14:55 | disposition home or self-care (01) | DRG 720 ==
LOC: HO.ED 10-21 01:33 → HO.EDOVER 10-21 02:00 → HO.S3 10-21 08:01
PROVIDERS: Admitting Provider Student in an Organized Health Care Education/Training Program; Emergency Provider Emergency Medicine Emergency Medical Services; PCP Family Medicine; Visit Provider Nurse Practitioner Acute Care
DX: A41.9 Sepsis, unspecified organism (principal); J96.20 Acute and chronic respiratory failure, unspecified whether with hypoxia or hypercapnia; J18.9 Pneumonia, unspecified organism; J44.0 Chronic obstructive pulmonary disease with (acute) lower respiratory infection; J44.1 Chronic obstructive pulmonary disease with (acute) exacerbation; F39 Unspecified mood [affective] disorder; I10 Essential (primary) hypertension; N40.0 Benign prostatic hyperplasia without lower urinary tract symptoms; E78.2 Mixed hyperlipidemia; Z20.822 Contact with and (suspected) exposure to COVID-19; Z87.891 Personal history of nicotine dependence; Z88.0 Allergy status to penicillin; Z79.82 Long term (current) use of aspirin; Z79.899 Other long term (current) drug therapy
CPT/HCPCS: 0241U; 36415; 71045; 80048; 80053; 82803; 83605; 84484; 85025; 87040; 93005; 94640; 99221; 99285; J0456; J0696; J1650; J2919

== ENCOUNTER → 2023-10-20 23:31 | Outpatient (BNV) | payer MEDICAID, SELFPAY | PROVIDERS: Admitting Provider Student in an Organized Health Care Education/Training Program; Emergency Provider Emergency Medicine Emergency Medical Services; PCP Family Medicine; Visit Provider Internal Medicine Cardiovascular Disease | DX: R00.0 Tachycardia, unspecified (principal); R06.09 Other forms of dyspnea | CPT/HCPCS: 93010 ==

== ENCOUNTER → 2023-10-21 01:52 | Outpatient (BNV) | payer MEDICAID, SELFPAY | PROVIDERS: Admitting Provider Student in an Organized Health Care Education/Training Program; Emergency Provider Emergency Medicine Emergency Medical Services; PCP Family Medicine; Visit Provider Student in an Organized Health Care Education/Training Program | DX: J18.9 Pneumonia, unspecified organism (principal); J98.4 Other disorders of lung | CPT/HCPCS: 99223; 99232; 99239; 99499 ==